=== PATIENT | female | born 1955 | race Caucasian/White ===

== ENCOUNTER 2022-02-25 15:22 | Emergency (ER) | payer MEDICARE, OTHER, SELFPAY ==
[2022-02-25 15:27] VITALS: BP 116/64; PULSE 73; RESP 18; TEMP 36.6; O2SAT 99
--- NOTE | 2022-02-25 16:41 | ED.GENADULT ---
HPI - General Adult General Chief complaint: Seizure Stated complaint: Seizure this morning Time Seen by Provider: 02/25/22 15:35 History of Present Illness HPI narrative: This 66-year-old female comes in because of a decreased level of consciousness event that occurred an hour so prior to arrival. Her daughter was present with her and wonders if she might have had a seizure. The patient reports that she was not feeling right and checked her blood glucose which was over 400. She had some difficulty dialing in her insulin dose but did give herself 10 units at that time. Within 5-10 minutes after this she began to be shaky and had brief loss of consciousness. The shaky tremors lasted for 5-10 seconds and the patient recovered from this within about 5 minutes. There is no report of any postictal symptoms. She does not have any history of seizures. She does take long-acting insulin in the evening and then short-acting 3 times a day. She states that she did have a little bit to eat and drink today but it was less than normal. Related Data Home Medications Medication Instructions Recorded Confirmed amlodipine 10 mg tablet 10 mg PO QDAY 01/24/22 02/25/22 carvedilol 6.25 mg tablet 6.25 mg PO 01/24/22 01/24/22 flash glucose scanning reader 01/24/22 01/24/22 (FreeStyle Mainor 14 Day Post) furosemide 40 mg tablet 40 mg PO 01/24/22 01/24/22 insulin aspart U-100 100 unit/mL subcut 01/24/22 01/24/22 (3 mL) subcutaneous pen (Novolog FlexPen U-100 Insulin aspart) lisinopril 20 mg tablet 20 mg PO QDAY 01/24/22 02/25/22 metformin 1,000 mg tablet 1,000 mg PO QDAY 01/24/22 02/25/22 pantoprazole 40 mg tablet,delayed tab PO 01/24/22 01/24/22 release warfarin 2 mg tablet 2 mg PO 01/24/22 01/24/22 insulin glargine 100 unit/mL (3 unit subcut .Bedtime 01/29/22 01/29/22 mL) subcutaneous pen aspirin 81 mg tablet,delayed 81 mg PO DAILY 02/25/22 02/25/22 release (Adult Aspirin Regimen) atorvastatin 40 mg tablet 40 mg PO DAILY 02/25/22 02/25/22 Allergies Allergy/AdvReac Type Severity Reaction Status Date / Time enoxaparin [From Lovenox] Allergy Diarrhea Verified 01/29/22 15:42 vitamin K2 Allergy Anaphylaxis Verified 01/29/22 15:42 Review of Systems Status of ROS: Reports: 10 or more systems reviewed and unremarkable except as noted in History and below Narrative: Constitutional: No fevers, no weight gain or loss. Eyes: No discharge. No vision changes. HENT: No congestion, no sore throat, no ear pain. Cardiovascular: No chest pain, no palpitations. Respiratory: No shortness of breath, no wheezes, no cough. Gastrointestinal: No abdominal pain, no vomiting, no diarrhea. Genitourinary: No dysuria, no hematuria. Musculoskeletal: Normal range of motion. Skin: No rashes, no pruritis. Neurological: Episode of shakiness and brief unresponsiveness as described above. Endo/Heme/Allergies: No bruising or bleeding. No polydipsia. Pysch: no suicidality, no anxiety, no insomnia. All other systems reviewed and are negative. [facility] Medical History (Updated 02/25/22 @ 17:51 by Lucian Cornejo MD) Acute kidney injury Anticoagulated with warfarin Cellulitis of right lower extremity Congestive heart failure Diabetes Enteritis due to Clostridium difficile History of Clostridioides difficile infection Multiple subsegmental pulmonary emboli without acute cor pulmonale Pleural effusion on left Surgical History H/O splenectomy History of appendectomy History of open heart surgery (05/17/21) History of pancreatectomy History of partial colectomy History of partial gastrectomy Social History Smoking Status: Former smoker How often do you have a drink containing alcohol: never AUDIT-C Alcohol total score: 0 Non-prescribed substance use: denies use Exam Narrative: Exam Narrative: Constitutional: Well-developed, well-nourished, no acute distress. HEENT: Normocephalic, atraumatic. Neck: Normal range of motion. Nontender. Supple. Heart: Regular. No murmurs. Normal rate. Intact distal pulses. Lungs: Clear to auscultation. No chest discomfort. No wheezes, rhonchi, or rales. Abdomen: Normal bowel sounds. Nontender. No rebound tenderness. Genitalia: Deferred. Back: No midline tenderness. Normal range of motion. Extremities: Normal range of motion. No injury. Skin: Intact. No rash. Warm. No erythema or pallor. Neurologic: No altered sensation. No weakness. Alert and oriented. Psychiatric: No suicidality. No anxiety or depression. No insomnia. Nursing notes and vitals signs are reviewed. Const: Vital Signs, click to edit/add: Vital Signs - 24 hr 02/25/22 15:27 Temperature 97.9 F Pulse Rate [Pulse Oximeter] 73 Respiratory Rate 18 Blood Pressure [Le ft Upper Arm] 116/64 Pulse Oximetry 99 Oxygen Delivery Me thod Room Air Course Vital Signs Vital signs: Initial Vital Signs Temperature 97.9 F 02/25/22 15:27 Temperature Source Temporal Artery Scan 02/25/22 15:27 Pulse Rate 73 02/25/22 15:27 Respiratory Rate 18 02/25/22 15:27 Blood Pressure 116/64 02/25/22 15:27 Blood Pressure Mean 81 02/25/22 15:27 Blood Pressure Position Supine 02/25/22 15:27 Pulse Oximetry 99 02/25/22 15:27 Oxygen Delivery Method 02/25/22 15:27 Vital Signs Temperature 97.9 F 02/25/22 15:27 Pulse Rate 73 02/25/22 15:27 Respiratory Rate 18 02/25/22 15:27 Blood Pressure 116/64 02/25/22 15:27 Pulse Oximetry 99 02/25/22 15:27 Oxygen Delivery Method 02/25/22 15:27 Temperature 97.9 F 02/25/22 15:27 Pulse Rate 73 02/25/22 15:27 Respiratory Rate 18 02/25/22 15:27 Blood Pressure 116/64 02/25/22 15:27 Pulse Oximetry 99 02/25/22 15:27 Oxygen Delivery Method 02/25/22 15:27 Medical Decision Making MDM Narrative Medical decision making narrative: This 66 year old female had a brief episode of decreased level of consciousness. She is not showing signs or symptoms that are suspicious for seizure and has never had a seizure in past. She did take her insulin fiber 10 minutes before this happened. Her glucometer reading was showing a glucose over 400. Glucometer reading here return to 240 and lab results showed glucose of 261. Her story and symptoms are yet most suspicious for a hypoglycemic event. She is okay to return home. I did give instructions regarding this kind of thing and advised her to follow-up with her primary physician. She states that she did have less to eat today and added a couple units of insulin to her dosing at the time because of the glucose reading. Lab Data Labs: Lab Results 02/25/22 02/25/22 02/25/22 Range/Units 16:35 16:50 16:50 WBC 11.77 H (4.50-11.00) K/uL RBC 4.20 (4.00-5.20) m/uL Hgb 10.9 L (12.0-16.0) gm/dL Hct 34.9 (33.0-51.0) % MCV 83 (80-100) fL MCH 26 (26-34) pg MCHC 31 L (32-36) gm/dL RDW Coeff of Aditi 16.5 H (11.5-15.5) % Plt Count 318 (140-440) K/uL Neut % (Auto) 77.4 H (42.0-72.0) % Lymph % (Auto) 11.7 L (20-44) % [place] % (Auto) 7.5 (0.0-11.0) % Eos % (Auto) 2.7 (0.0-7.0) % Baso % (Auto) 0.4 (0.0-3.0) % Neut # (Auto) 9.10 H (1.7-7.0) K/uL Lymph # (Auto) 1.40 (0.90-2.90) K/uL [place] # (Auto) 0.90 (0.00-0.90) K/UL Eos # (Auto) 0.30 (0.00-0.50) K/uL Baso # (Auto) 0.00 (0.00-0.30) K/uL Sodium 134 L (135-149) mmol/L Potassium 4.7 (3.6-5.1) mmol/L Chloride 99 (96-114) mmol/L Carbon Dioxide 28 (20-32) mmol/L BUN 24 (7-30) mg/dL Creatinine 0.8 (0.5-1.5) mg/dL Estimated Creat Clear 50.47 Estimated GFR 82 ml/min Glucose 261 H (60-115) mg/dL Calcium 9.6 (8.4-10.6) mg/dL POC Troponin I 0.02 (0.01-0.04) ng/ml ECG Data Attestation: I personally reviewed and interpreted this ECG as follows: Interpretation: Normal sinus rhythm. Rate is 68 beats per minute. There are no ST or T-wave abnormalities. Right bundle branch block. Discharge Plan Discharge Clinical Impression: Hypoglycemic episode in patient with diabetes mellitus Patient Disposition: Home, Self-Care Condition: Improved Additional Instructions: Continue current plans. Take food or drink if symptoms are recurrent. Follow-up with primary physician to review medications. Return if worsening. Prescriptions: No Action insulin aspart U-100 [Novolog FlexPen U-100 Insulin] 100 unit/mL (3 mL) insulin pen subcut pantoprazole 40 mg tablet,delayed release (DR/EC) PO carvedilol 6.25 mg tablet 6.25 mg PO warfarin 2 mg tablet 2 mg PO lisinopril 20 mg tablet 20 mg PO QDAY metformin 1,000 mg tablet 1,000 mg PO QDAY (DME) FreeStyle Mainor 14 Day Post Misc See Rx Instructions .ROUTE Rx Instructions: As directed amlodipine 10 mg tablet 10 mg PO QDAY furosemide 40 mg tablet 40 mg PO insulin glargine 100 unit/mL (3 mL) insulin pen subcut .Bedtime aspirin [Adult Aspirin Regimen] 81 mg tablet,delayed release (DR/EC) 81 mg PO DAILY atorvastatin 40 mg tablet 40 mg PO DAILY Follow Up/Referrals: Hilda Cheema MD [Primary Care Provider] - Stand Alone Forms: [employer] Info Instructions
[2022-02-25 16:54] LABS: Troponin, Point-of-Care* 0.02 ng/ml (0.01-0.04)
[2022-02-25 17:01] LABS: Basophils Percent Auto 0.4 % (0.0-3.0); Eosinophils Percent Auto 2.7 % (0.0-7.0); Hematocrit 34.9 % (33.0-51.0); Hemoglobin* 10.9 gm/dL (12.0-16.0); Immature Granulocytes Pct Auto 0.3 %; Lymphocytes Percent Auto 11.7 % (20-44); Mean Corpuscular HGB Conc 31 gm/dL (32-36); Mean Corpuscular Hemoglobin 26 pg (26-34); Mean Corpuscular Volume 83 fL (80-100); Monocytes Percent Auto 7.5 % (0.0-11.0); Neutrophils Percent Auto 77.4 % (42.0-72.0); Platelet Count* 318 K/uL (140-440); RDW Coefficient of Variation % 16.5 % (11.5-15.5); White Blood Count* 11.77 K/uL (4.50-11.00)
[2022-02-25 17:05] LABS: Slide Review Reflex No
[2022-02-25 17:18] LABS: Chloride* 99 mmol/L (96-114); Potassium* 4.7 mmol/L (3.6-5.1); Sodium* 134 mmol/L (135-149)
[2022-02-25 17:21] LABS: Blood Urea Nitrogen* 24 mg/dL (7-30); Carbon Dioxide* 28 mmol/L (20-32); Creatinine* 0.8 mg/dL (0.5-1.5); Est. Creatinine Clearance* 50.47; Estimated Glomerular Filt Rate 82 ml/min; Glucose* 261 mg/dL (60-115)
[2022-02-25 17:22] LABS: Calcium* 9.6 mg/dL (8.4-10.6)
== END 2022-02-25 17:59 | disposition home or self-care (01) ==
PROVIDERS: Emergency Provider Emergency Medicine Emergency Medical Services; PCP Family Medicine
DX: E11.649 Type 2 diabetes mellitus with hypoglycemia without coma (principal)
CPT/HCPCS: 36415; 80048; 84484; 85025; 93005; 99284

== ENCOUNTER 2022-06-13 22:15 | Outpatient (CLI) | payer MEDICARE, OTHER, SELFPAY | END 2022-06-13 22:16 | disposition home or self-care (01) | LOC: AMB 06-17 10:22 | PROVIDERS: PCP Family Medicine; Visit Provider Emergency Medicine Emergency Medical Services | DX: R53.1 Weakness (principal) | CPT/HCPCS: A0998 ==

== ENCOUNTER 2022-06-17 09:13 | Observation (INO) | payer MEDICARE, OTHER, SELFPAY ==
[2022-06-17] VITALS (7 sets, daily range): BP systolic 125–187; BP diastolic 59–81; PULSE 70–81; RESP 16–18; TEMP 36.6–36.9; O2SAT 94–98; BMI 33.3; BMI 34.3
--- NOTE | 2022-06-17 10:35 | CRLHL7_ITS ---
For Patients: As a result of the Century Cures Act, medical imaging exams and procedure reports are released immediately into your electronic medical record. You may view this report before your referring provider. If you have questions, please contact your health care provider. Indication: Left foot injury Technique: A total of three views of the left foot were acquired. Comparison: None Findings: Bones: Decreased bone mineral density. No definite acute fracture, dislocation or destructive process. Joint spaces: Osteoarthritis primarily of the 1st MTP Soft tissues: No gas within soft tissues. No radiopaque foreign body. Dense atherosclerotic vascular calcifications Impression: No acute posttraumatic finding Dictated by Sadi Kendall MD @ 06/17/2022 11:54:14 AM (Electronically Signed)
--- NOTE | 2022-06-17 10:35 | CRLHL7_ITS ---
For Patients: As a result of the Century Cures Act, medical imaging exams and procedure reports are released immediately into your electronic medical record. You may view this report before your referring provider. If you have questions, please contact your health care provider. Indication: Injury Technique: A total of two views of the right knee were acquired. Comparison: None Findings: Bones: Bone mineral density is decreased. Alignment is normal. There is no directly visible fracture appearance Joint spaces: Moderate-sized joint effusion. Significant osteoarthritis especially medially Soft tissues: Soft tissue swelling. Atherosclerotic vascular calcifications. Impression: Moderate-sized joint effusion. Significant osteoarthritis. No directly visible fracture Dictated by Sadi Kendall MD @ 06/17/2022 11:51:55 AM (Electronically Signed)
--- NOTE | 2022-06-17 12:49 | PC.NURSE ---
Patient attempted to ambulate with a hard sole shoe to affected foot. Patient reports pain less with shoe on, but is unsteady with ambulation. Was only able to ambulate 3 small steps before feeling like she was going to fall. Daughter is concerned for patient safety at home. Dr. Louise notified.
--- NOTE | 2022-06-17 13:56 | PC.NURSE ---
No IV per Block for admission
[2022-06-17 14:13] LABS: SARS PCR* Negative SARS-CoV-2 (Negative)
[2022-06-17 14:35] LABS: Chloride* 100 mmol/L (96-114)
[2022-06-17 14:36] LABS: INR 1.15 (0.91-1.10); Potassium* 4.2 mmol/L (3.6-5.1); Prothrombin Time 15.4 Seconds; Sodium* 135 mmol/L (135-149)
[2022-06-17 14:38] LABS: Creatinine* 0.8 mg/dL (0.5-1.5); Estimated Glomerular Filt Rate 81 ml/min
[2022-06-17 14:39] LABS: Blood Urea Nitrogen* 19 mg/dL (7-30); Carbon Dioxide* 30 mmol/L (20-32); Glucose* 240 mg/dL (60-115)
[2022-06-17] MEDS: ACETAMINOPHEN 500 MG TABLET 1000 MG PO (14:44)
[2022-06-17 15:36] LABS: Hematocrit 31.6 % (33.0-51.0); Hemoglobin* 9.5 gm/dL (12.0-16.0); Lymphocytes Percent Auto 11.4 % (20-44); Mean Corpuscular HGB Conc 30 gm/dL (32-36); Mean Corpuscular Hemoglobin 26 pg (26-34); Mean Corpuscular Volume 87 fL (80-100); Neutrophils Percent Auto 78.3 % (42.0-72.0); Platelet Count* 352 K/uL (140-440); RDW Coefficient of Variation % 18.8 % (11.5-15.5); Red Blood Count 3.64 m/uL (4.00-5.20)
[2022-06-17 15:37] LABS: Basophils Percent Auto 0.4 % (0.0-3.0); Eosinophils Percent Auto 2.6 % (0.0-7.0); Immature Granulocytes Pct Auto 1.1 %; Monocytes Percent Auto 6.2 % (0.0-11.0)
[2022-06-17 15:47] LABS: Slide Review Reflex No
--- NOTE | 2022-06-17 15:48 | ED.GENADULT ---
HPI - General Adult General Date Seen: 06/17/22 Chief complaint: Extremity Pain/Injury, Lower Stated complaint: Foot pain Time Seen by Provider: 06/17/22 10:28 Source: patient and family Mode of arrival: ambulatory Limitations: no limitations History of Present Illness HPI narrative: Patient is a 67-year-old woman here with her daughter for evaluation of her left foot. A few days ago she fell, landing on her right knee. She sustained bruising to her right knee and has had pain ever since although she has not been seen for the knee. She says today she was standing up off the toilet and she just felt like her knee was giving way. She lowered herself to the ground but in the process injured her left foot. She complains of pain over the top of her foot and says she has not been able to put weight on it. Her daughter feels like at baseline she has been having difficulty managing at home. Related Data Home Medications Medication Instructions Recorded Confirmed amlodipine 10 mg tablet 5 mg PO QDAY 01/24/22 06/17/22 carvedilol 6.25 mg tablet 6.25 mg PO BID 01/24/22 06/17/22 furosemide 40 mg tablet 40 mg PO DAILY 01/24/22 06/17/22 insulin aspart U-100 100 unit/mL 8 unit subcut TIDWM 01/24/22 06/17/22 (3 mL) subcutaneous pen (Novolog FlexPen U-100 Insulin aspart) lisinopril 20 mg tablet 20 mg PO QDAY 01/24/22 06/17/22 metformin 1,000 mg tablet 1,000 mg PO BIDWM 01/24/22 06/17/22 pantoprazole 40 mg tablet,delayed 40 mg PO DAILY 01/24/22 06/17/22 release warfarin 2 mg tablet 4 - 6 mg PO QPM 01/24/22 06/17/22 insulin glargine 100 unit/mL (3 20 unit subcut HS 01/29/22 06/17/22 mL) subcutaneous pen aspirin 81 mg tablet,delayed 81 mg PO DAILY 02/25/22 06/17/22 release (Adult Aspirin Regimen) atorvastatin 40 mg tablet 40 mg PO DAILY 02/25/22 06/17/22 acetaminophen 500 mg tablet 500 mg PO Q6H PRN 06/17/22 06/17/22 cholecalciferol (vitamin D3) 25 25 mcg PO DAILY 06/17/22 06/17/22 mcg (1,000 unit) capsule coenzyme Q10 100 mg capsule 100 mg PO DAILY 06/17/22 06/17/22 fluoxetine 10 mg capsule 10 mg PO HS 06/17/22 06/17/22 nystatin 100,000 unit/gram topical 1 applic topical BID PRN 06/17/22 06/17/22 cream sennosides 8.6 mg-docusate sodium 2 tab-cap PO BID PRN 06/17/22 06/17/22 50 mg tablet Allergies Allergy/AdvReac Type Severity Reaction Status Date / Time enoxaparin [From Lovenox] Allergy Diarrhea Verified 01/29/22 15:42 vitamin K2 Allergy Anaphylaxis Verified 01/29/22 15:42 Review of Systems Status of ROS: Reports: 10 or more systems reviewed and unremarkable except as noted in History and below [facility] Medical History Acute kidney injury ?N17.9 - Acute kidney failure, unspecified (ICD-10) Anticoagulated with warfarin ?Z79.01 - intermediate manager (current) use of anticoagulants (ICD-10) Cellulitis of right lower extremity ?L03.115 - Cellulitis of right lower limb (ICD-10) Congestive heart failure ?I50.9 - Heart failure, unspecified (ICD-10) Diabetes ?E11.9 - Type 2 diabetes mellitus without complications (ICD-10) Enteritis due to Clostridium difficile ?A04.72 - Enterocolitis due to Clostridium difficile, not specified as recurrent (ICD-10) History of Clostridioides difficile infection ?Z86.19 - Personal history of other infectious and parasitic diseases (ICD-10) Multiple subsegmental pulmonary emboli without acute cor pulmonale ?I26.94 - Multiple subsegmental pulmonary emboli without acute cor pulmonale (ICD-10) Pleural effusion on left ?J90 - Pleural effusion, not elsewhere classified (ICD-10) Surgical History H/O splenectomy ?Z90.81 - Acquired absence of spleen (ICD-10) History of appendectomy ?Z90.49 - Acquired absence of other specified parts of digestive tract (ICD-10) History of open heart surgery (05/17/21) ?Z98.890 - Other specified postprocedural states (ICD-10) 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) History of partial colectomy ?Z90.49 - Acquired absence of other specified parts of digestive tract (ICD-10) History of partial gastrectomy ?Z90.3 - Acquired absence of stomach [part of] (ICD-10) Social History Smoking Status: Former smoker How often do you have a drink containing alcohol: never AUDIT-C Alcohol total score: 0 Non-prescribed substance use: denies use service: No Exam Narrative: Exam Narrative: Vital signs reviewed In general, an alert, nontoxic woman. She is overweight. Breathing easily. Extremities: Examination of the right knee shows of effusion although it does not look like a hemarthrosis. She does have some bruising over the anterior lower knee. Has full range of motion, this does not seem to cause her pain. On the left, the foot is mildly swollen over the dorsal proximal foot, and she has tenderness in this area. She does not have any tenderness on the plantar aspect of the foot. There is no bruising or deformity. Ankle is nontender. Skin: Warm and dry. Well perfused. Neurologic: She is alert, conversant, moves all extremities, speech is fluid. Affect: Normal. Const: Vital Signs, click to edit/add: Vital Signs - 24 hr 06/17/22 09:16 06/17/22 09:46 Temperature 97.8 F Pulse Rate [Pulse Oximeter] 78 70 Respiratory Rate 18 Blood Pressure [Ri ght Upper Arm] 187/81 H 148/59 H Pulse Oximetry 98 Oxygen Delivery Me thod Room Air Course Vital Signs Vital signs: Initial Vital Signs Temperature 97.8 F 06/17/22 09:16 Temperature Source Temporal Artery Scan 06/17/22 09:16 Pulse Rate 78 06/17/22 09:16 Pulse Rhythm Regular 06/17/22 09:16 Respiratory Rate 18 06/17/22 09:16 Blood Pressure 187/81 H 06/17/22 09:16 Blood Pressure Mean 116 H 06/17/22 09:16 Blood Pressure Position Supine 06/17/22 09:16 Pulse Oximetry 98 06/17/22 09:16 Oxygen Delivery Method Room Air 06/17/22 09:16 Vital Signs Temperature 97.8 F 06/17/22 09:16 Pulse Rate 78 06/17/22 09:16 Respiratory Rate 18 06/17/22 09:16 Blood Pressure 187/81 H 06/17/22 09:16 Pulse Oximetry 98 06/17/22 09:16 Oxygen Delivery Method Room Air 06/17/22 09:16 Temperature 97.8 F 06/17/22 09:16 Pulse Rate 70 06/17/22 09:46 Respiratory Rate 18 06/17/22 09:16 Blood Pressure 148/59 H 06/17/22 09:46 Pulse Oximetry 98 06/17/22 09:16 Oxygen Delivery Method Room Air 06/17/22 09:16 Medical Decision Making MDM Narrative Medical decision making narrative: She had x-rays of the left foot and the right knee. I reviewed these both and did not see any evidence of bony abnormality such as fracture or dislocation. Final radiology reads for both were negative for bony abnormalities. She did have an effusion seen in the right knee. I put her in a flat sole shoe on the left and we tried having her get up to see if having that stabilized a little bit would help her, but she just is not able to walk. She and her daughter both agree that she is not going to be able to manage at home right now, and while she is not enthusiastic, she does agree with the plan for short-term fci placement. We have discussed that she will likely not be able to choose specifically which fci she goes to, that we will be limited by where there is bed availability. Her blood sugar was elevated while she was here and I did let her use her own insulin sliding scale to manage that initially. Routine labs showed a white blood cell count of 12.5, hemoglobin of 9.5, it was 11.9 in February of this year. She is on Coumadin secondary to history of PE. She does not note any bleeding complaints. Her INR subtherapeutic at 1.15. Blood sugar was improved to 240 on her metabolic panel which was otherwise unremarkable. COVID was negative. Lab Data Labs: Lab Results 06/17/22 06/17/22 Range/Units 13:30 14:12 WBC 12.50 H (4.50-11.00) K/uL RBC 3.64 L (4.00-5.20) m/uL Hgb 9.5 L (12.0-16.0) gm/dL Hct 31.6 L (33.0-51.0) % MCV 87 (80-100) fL MCH 26 (26-34) pg MCHC 30 L (32-36) gm/dL RDW Coeff of Aditi 18.8 H (11.5-15.5) % Plt Count 352 (140-440) K/uL Neut % (Auto) 78.3 H (42.0-72.0) % Lymph % (Auto) 11.4 L (20-44) % [place] % (Auto) 6.2 (0.0-11.0) % Eos % (Auto) 2.6 (0.0-7.0) % Baso % (Auto) 0.4 (0.0-3.0) % Neut # (Auto) 9.80 H (1.7-7.0) K/uL Lymph # (Auto) 1.40 (0.90-2.90) K/uL [place] # (Auto) 0.80 (0.00-0.90) K/UL Eos # (Auto) 0.30 (0.00-0.50) K/uL Baso # (Auto) 0.10 (0.00-0.30) K/uL INR 1.15 H (0.91-1.10) Sodium 135 (135-149) mmol/L Potassium 4.2 (3.6-5.1) mmol/L Chloride 100 (96-114) mmol/L Carbon Dioxide 30 (20-32) mmol/L BUN 19 (7-30) mg/dL Creatinine 0.8 (0.5-1.5) mg/dL Estimated Creat Clear 49.80 Estimated GFR 81 ml/min Glucose 240 H (60-115) mg/dL Calcium 9.0 (8.4-10.6) mg/dL SARS-CoV-2 (PCR) Negative SARS-CoV-2 (Negative) Discharge Plan Discharge Clinical Impression: Frailty, Injury of knee, right, Sprain of foot, left Patient Disposition: Admitted As Inpatient Condition: Stable
[2022-06-17] MEDS: WARFARIN 3 MG TABLET 6 MG PO (18:43)
[2022-06-17] MEDS: METFORMIN 1,000 MG TABLET 1000 MG PO (18:43)
--- NOTE | 2022-06-17 19:22 | P.IMHP_ITS ---
Hospitalist- H&P: HPI History of Present Illness Date Seen: 06/17/22 Chief complaint: Foot pain Narrative: Nava Borrego is a 67 year old female with multiple medical problems who presents with a left foot injury that occurred today and acute injury of her right knee 10 days ago. Now unable to walk. Patient reports that she fell and bruised her right knee. She has chronic right knee pain and has been contemplating right total knee arthroplasty for a long time. Due to other serious health problems over the past year this is been put off. About 10 days ago she fell on her right knee causing bruising and increased pain. Today she was getting up off the toilet when her right knee began to hurt in give way and she eased herself to the ground and in the process injuring her left foot over the dorsum of the midfoot. She lives at home with her daughter and her . The daughter works during the day but is otherwise the primary person to manage medical problems and medications. Review of Systems Narrative: Per patient and daughter there has not been any acute medical problems recently. Chest the injuries to her right knee and left foot. She has not been ill with cold, cough, fever, shortness of breath, chest pain, syncope, nausea, vomiting, abdominal pain, diarrhea, constipation, urinary problems, edema. 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 (ICD-10) Cellulitis of right lower extremity ?L03.115 - Cellulitis of right lower limb (ICD-10) Cognitive impairment ?R41.89 - Other symptoms and signs involving cognitive functions and awareness (ICD-10) Congestive heart failure ?I50.9 - Heart failure, unspecified (ICD-10) Diabetes ?E11.9 - Type 2 diabetes mellitus without complications (ICD-10) Diabetic polyneuropathy ?E11.42 - Type 2 diabetes mellitus with diabetic polyneuropathy (ICD-10) Endocarditis ?I38 - Endocarditis, valve unspecified (ICD-10) Enteritis due to Clostridium difficile ?A04.72 - Enterocolitis due to Clostridium difficile, not specified as recurrent (ICD-10) Heart failure ?I50.9 - Heart failure, unspecified (ICD-10) History of Clostridioides difficile infection ?Z86.19 - Personal history of other infectious and parasitic diseases (ICD- 10) History of DVT (deep vein thrombosis) ?Z86.718 - Personal history of other venous thrombosis and embolism (ICD-10) Hyperlipidemia ?E78.5 - Hyperlipidemia, unspecified (ICD-10) Hypertension ?I10 - Essential (primary) hypertension (ICD-10) Medication noncompliance due to cognitive impairment ?R41.9 - Unspecified symptoms and signs involving cognitive functions and awareness (ICD-10) ?Z91.148 - Patient's other noncompliance with medication regimen for other reason (ICD-10) Multiple subsegmental pulmonary emboli without acute cor pulmonale ?I26.94 - Multiple subsegmental pulmonary emboli without acute cor pulmonale (ICD-10) Pleural effusion on left ?J90 - Pleural effusion, not elsewhere classified (ICD-10) Surgical History (Updated 06/17/22 @ 19:22 by Julio White MD) H/O splenectomy ?Z90.81 - Acquired absence of spleen (ICD-10) History of appendectomy ?Z90.49 - Acquired absence of other specified parts of digestive tract (ICD- 10) History of open heart surgery (05/17/21) ?Z98.890 - Other specified postprocedural states (ICD-10) 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 She reports they live in a small home. She primarily walks around the house holding onto furniture. She has a cane that she occasionally uses, especially when she goes out. She lives on [address]. Her daughter sets up her medications but notes that she does not know if her mom is reliably taking her medications. Daughter specifically notes that her mom has probably been forgetting her insulin at times and her warfarin has been missed at least a couple times in the past week or so. Highest level of school completed/degree received: Associate degree: occupational, technical, vocational program Smoking Status: Former smoker Do you use any of these nicotine containing products: None How often do you have a drink containing alcohol: never AUDIT-C Alcohol total score: 0 Non-prescribed substance use: denies use Caffeine: No (Quit in April 2021) Gender Identity: female service: No Meds Home Medications and Allergies Home Medications Medication Instructions Recorded Confirmed Type amlodipine 10 mg tablet 5 mg PO QDAY 01/24/22 06/17/22 History carvedilol 6.25 mg tablet 6.25 mg PO BID 01/24/22 06/17/22 History furosemide 40 mg tablet 40 mg PO DAILY 01/24/22 06/17/22 History insulin aspart U-100 100 unit/mL 8 unit subcut TIDWM 01/24/22 06/17/22 History (3 mL) subcutaneous pen (Novolog FlexPen U-100 Insulin aspart) lisinopril 20 mg tablet 20 mg PO QDAY 01/24/22 06/17/22 History metformin 1,000 mg tablet 1,000 mg PO BIDWM 01/24/22 06/17/22 History pantoprazole 40 mg tablet,delayed 40 mg PO DAILY 01/24/22 06/17/22 History release warfarin 2 mg tablet 4 - 6 mg PO QPM 01/24/22 06/17/22 History insulin glargine 100 unit/mL (3 20 unit subcut HS 01/29/22 06/17/22 History mL) subcutaneous pen aspirin 81 mg tablet,delayed 81 mg PO DAILY 02/25/22 06/17/22 History release (Adult Aspirin Regimen) atorvastatin 40 mg tablet 40 mg PO DAILY 02/25/22 06/17/22 History acetaminophen 500 mg tablet 500 mg PO Q6H PRN 06/17/22 06/17/22 History cholecalciferol (vitamin D3) 25 25 mcg PO DAILY 06/17/22 06/17/22 History mcg (1,000 unit) capsule coenzyme Q10 100 mg capsule 100 mg PO DAILY 06/17/22 06/17/22 History fluoxetine 10 mg capsule 10 mg PO HS 06/17/22 06/17/22 History nystatin 100,000 unit/gram topical 1 applic topical BID PRN 06/17/22 06/17/22 History cream sennosides 8.6 mg-docusate sodium 2 tab-cap PO BID PRN 06/17/22 06/17/22 History 50 mg tablet Allergies Allergy/AdvReac Type Severity Reaction Status Date / Time enoxaparin [From Lovenox] Allergy Diarrhea Verified 01/29/22 15:42 vitamin K2 Allergy Anaphylaxis Verified 01/29/22 15:42 Exam Narrative: Exam Narrative: She is alert and appears in no distress. She gives her own history which is corroborated by her daughter. Head is without trauma. Eyes normal. Oropharynx is normal. Neck is supple without mass or adenopathy. She has no facial asymmetry. Extraocular movements are full. Respirations are clear to auscultation. Cardiovascular: S1, S2, 2/6 systolic ejection murmur. No gallop or rub. Abdomen: Bowel sounds active. Abdomen is soft without tenderness or mass. External genitalia normal. Upper extremities are normal. She moves both upper extremities well. Lower extremities notable for some joint effusion around the right knee with moderate bruising over the anterior knee. No break in the skin. No marked warmth or erythema. She has chronic venous stasis skin changes over her right calf. Right foot appears normal. She has diminished sensation. Intact right pedal pulse. Left lower extremity notable for chronic venous stasis skin changes. She reports pain over her dorsum of her right midfoot. Palpation there is minimally tender. There is no obvious deformity. She is able to flex and extend her foot and ankle and toes without significant pain. No significant erythema. Const: Vital Signs, click to edit/add: Vital Signs - 24 hr 06/17/22 09:16 06/17/22 09:46 06/17/22 15:41 Temperature 97.8 F 98 F Pulse Rate [Pulse Oximeter] 78 70 72 Respiratory Rate 18 18 Blood Pressure [Le ft Arm] 174/75 H Blood Pressure [Ri ght Upper Arm] 187/81 H 148/59 H Pulse Oximetry 98 95 Oxygen Delivery Me thod Room Air Room Air 06/17/22 15:41 06/17/22 14:45 06/17/22 16:26 Temperature 98 F Pulse Rate [Pulse Oximeter] 72 Respiratory Rate 18 18 18 Blood Pressure [Le ft Arm] 174/75 H Blood Pressure [Ri ght Upper Arm] Pulse Oximetry 95 95 Oxygen Delivery Me thod Room Air Room Air Documenting provider has reviewed patient's vital signs: yes Hospitalist - H&P: Result Labs Labs: Short CBC 06/17/22 Range/Units 14:12 WBC 12.50 H (4.50-11.00) K/uL Hgb 9.5 L (12.0-16.0) gm/dL Hct 31.6 L (33.0-51.0) % Plt Count 352 (140-440) K/uL BMP 06/17/22 14:12 Sodium 135 Potassium 4.2 Chloride 100 Carbon Dioxide 30 BUN 19 Creatinine 0.8 Glucose 240 H Calcium 9.0 Imaging Radiographs of left foot and right ankle: Attestation: I have reviewed the pertinent imaging results. (No obvious bony abnormalities) Assessment and Plan Assessment and plan (1) Sprain of foot, left: Problem comment: Patient can be allowed to bear weight as tolerated. At this time she is unable to walk on her foot secondary to pain. Will treat with Tylenol for pain Status: Acute (2) Injury of knee, right: Problem comment: Acute on chronic knee problems on the right. She has advanced degenerative changes. She may have some hemarthrosis from her fall from 10 days ago. She has been told she is not a good candidate for knee surgery. If not getting better consider repeat injection and/or aspiration of that right knee per Ortho. Status: Acute (3) Osteoarthritis of right knee: Problem comment: severe, primary, longstanding Status: Acute (4) Frailty: Problem comment: By description today patient appears to be frail in addition to her recent injuries. Will do an assessment for functional status. Status: Acute (5) Cognitive impairment: Problem comment: Not previously diagnosed. Daughter notes some progressive forgetfulness and confusion. Medication noncompliance has become a problem. Cognitive assessment is warranted Status: Acute (6) Medication noncompliance due to cognitive impairment: Problem comment: Has been forgetting warfarin and insulin at times. Status: Acute Plan Patient is admitted because of a lack of a safe discharge plan. Will do functional assessment for physical and cognitive deficits. Attempt pain management. Look at options for safe discharge. Total time spent today is 75 minutes, 55 minutes in coordination of care and discussing with patient, daughter and other providers ongoing evaluation management of disabilities.
--- NOTE | 2022-06-17 20:06 | PC.NURSE ---
[id number] Shift Summary? [address]67 Fall- L foot pain? Obs. Pt admitted to floor around 1445. Fell on 06/13 and hurt her R knee. Fell in bathroom this morning and hurt her L foot. X rays to R Knee and L foot done, no breaks found. Has 7/10 pain to Left foot and 4/10 to R knee. Given Tylenol in the ED. Brusing to R knee and swelling (edema vs injury?) to L foot. Oriented x4 but forgetful in conversation. Family reports this is new. Neuropathy to bilat legs up to shins. No nausea or vomiting. Moving with walker (cane at baseline) and AO1. Commode at bedside, no BM this shift. Diabetic diet with SSI, standing units with meals, and long acting at night. Daughter is Caregiver and requests we call with any questions. 6mg of Warfarin given this shift- daughter reports pt is ?forgetful? about taking Coumadin. INR 1.1. Allergy to Vitamin K ?It makes my heart stop?.?
[2022-06-17] MEDS: FLUOXETINE HCL 10 MG CAPSULE PO (20:58)
[2022-06-17] MEDS: ENOXAPARIN 40 MG/0.4 ML INJ SUBCUT (20:58)
[2022-06-17] MEDS: carvediloL 6.25 MG TABLET PO (20:58)
[2022-06-17] MEDS: ACETAMINOPHEN 325 MG TABLET 975 MG PO (21:03)
--- NOTE | 2022-06-17 22:00 | PC.NURSE ---
Pt cooperative during shift ([id number]). Pt up to bathroom with SBA. Pt had pain which Pt stated a 5 in foot and on the tops of toes. See EMAR for intervention. Pt takes medications whole. Pt has blood sugar checks; night time blood glucose 147 no sliding scale needed.
[2022-06-18] VITALS (7 sets, daily range): BP systolic 143–179; BP diastolic 54–80; PULSE 66–75; RESP 16–18; TEMP 36.3–36.6; O2SAT 94–98
[2022-06-18] MEDS: ACETAMINOPHEN 325 MG TABLET 975 MG PO ×4 (04:15→23:34)
[2022-06-18 06:32] LABS: Basophils Absolute Auto 0.05 K/uL (0.00-0.30); Basophils Percent Auto 0.5 % (0.0-3.0); Eosinophils Absolute Auto 0.44 K/uL (0.00-0.50); Eosinophils Percent Auto 4.3 % (0.0-7.0); Hematocrit 29.3 % (33.0-51.0); Immature Granulocytes Abs Auto 0.14 K/uL (0.00-0.30); Immature Granulocytes Pct Auto 1.4 %; Lymphocytes Percent Auto 16.3 % (20-44); Mean Corpuscular HGB Conc 31 gm/dL (32-36); Mean Corpuscular Hemoglobin 27 pg (26-34); Mean Corpuscular Volume 86 fL (80-100); Monocytes Percent Auto 10.4 % (0.0-11.0); Neutrophils Absolute Auto 6.86 K/uL (1.7-7.0); Neutrophils Percent Auto 67.1 % (42.0-72.0); Platelet Count* 343 K/uL (140-440); RDW Coefficient of Variation % 19.3 % (11.5-15.5); White Blood Count* 10.22 K/uL (4.50-11.00)
[2022-06-18] MEDS: OMEPRAZOLE 20 MG CAPSULE DR 40 MG PO (06:37)
[2022-06-18 06:40] LABS: Slide Review Reflex No
--- NOTE | 2022-06-18 06:43 | PC.NURSE ---
Pt alert and oriented x3, Afebrile. Pt reports 5/10 left foot pain with movement and 3/10 when lying still, pain managed with PRN Tylenol. Pt left foot has non-pitting edema, has <3 refill. Pt denies chest pain, SOB, and N/V. Pt is up SBA with walker and gait belt. Pt slept throughout most of night. Pt is tolerating a regular diet. ?
[2022-06-18 06:52] LABS: INR 1.36 (0.91-1.10); Prothrombin Time 17.6 Seconds
[2022-06-18 07:02] LABS: C Reactive Protein* 1.2 mg/dL (0.5-1.0)
[2022-06-18] MEDS: ASPIRIN 81 MG TABLET EC PO (08:36)
[2022-06-18] MEDS: METFORMIN 1,000 MG TABLET 1000 MG PO ×2 (08:36→17:29)
[2022-06-18] MEDS: ATORVASTATIN CALCIUM 40 MG TABLET PO (08:37)
[2022-06-18] MEDS: AMLODIPINE 10 MG TABLET 5 MG PO (08:37)
[2022-06-18] MEDS: FUROSEMIDE 40 MG TABLET PO (08:37)
[2022-06-18] MEDS: carvediloL 6.25 MG TABLET PO ×2 (08:37→20:35)
[2022-06-18] MEDS: COENZYME Q10 100 MG CAPSULE PO (08:37)
[2022-06-18] MEDS: lisinopriL 20 MG TABLET PO (08:37)
--- NOTE | 2022-06-18 09:53 | P.IMPN_ITS ---
Progress Note: A&P Assessment and plan (1) Falls: Problem details: - mechanical vs orthostatic (iatrogenic, anemia) vs cardiogenic/neuro - PT and OT following, will obtain TTE given history of aortic valve replacement, further workup pending results and clinical course Status: Acute (2) Sprain of foot, left: Problem details: - unable to bear weight on admission 06/17, secondary to pain - working with therapies to help determine dispo plan Status: Acute (3) Injury of knee, right: Problem details: - acute on chronic with multiple recent falls - ambulating with therapies, consider repeat injection and/or aspiration of that right knee per Ortho pending clinical course Status: Acute (4) Osteoarthritis of right knee: Problem details: - severe, primary, longstanding Status: Acute (5) Frailty: Problem details: - recent falls, deconditioning Status: Acute (6) Cognitive impairment: Problem details: - patient and daughter both endorse some memory loss recently; OT to perform MOCA today Status: Acute (7) Medication noncompliance due to cognitive impairment: Problem details: - occasionally forgetting to take Warfarin/insulin Status: Acute (8) Anemia: Problem details: - chronic, normocytic, unclear etiology, receiving outpatient iron infusions with PCP - reassuring colonoscopy 01/[address] Ritter Status: Acute Plan - per above - continue home medications, Warfarin for ppx - daughter Oscar updated by phone, questions answered - Oscar notes that family is comfortable with SNF placement if recommended by team Subjective Date Seen: 06/18/22 Interval history: No acute events overnight. Patient's lower extremity pain seems better today. She endorses multiple falls recently, on aware of any alleviating or aggravating factors. She does not believe she has been having palpitations or syncope. Amparo also notes that her memory has been worse recently; MOCA with occupational therapy is today. Exam Narrative: Exam Narrative: GEN: Alert and sitting comfortably in bedside chair HEENT: EOMIs bilaterally, + conjunctival pallor, no scleral icterus CV: RRR, + systolic murmur without radiation R: LCTA bilaterally without concerning wheezing, air movement adequate Ext: Trace edema bilateral lower extremities, abnormal pigmentation of bilateral lower extremities consistent with livedo reticularis vs PVD Skin: No other concerning skin lesions or rashes on exposed skin Neuro: No focal deficits, gait not observed Psych: Appropriate Const: Vital Signs, click to edit/add: Vital Signs - 24 hr 06/17/22 14:45 06/17/22 15:41 06/17/22 15:41 Temperature 98 F 98 F Pulse Rate [Pulse Oximeter] 72 72 Respiratory Rate 18 18 18 Blood Pressure [Le ft Arm] 174/75 H 174/75 H Pulse Oximetry 95 95 95 Oxygen Delivery Me thod Room Air Room Air Room Air 06/17/22 16:26 06/17/22 19:40 06/17/22 19:40 Temperature 98.5 F Pulse Rate [Pulse Oximeter] 72 72 Respiratory Rate 18 18 Blood Pressure [Le ft Arm] 125/66 Pulse Oximetry 94 Oxygen Delivery Me thod Room Air 06/17/22 23:50 06/17/22 23:50 06/18/22 03:40 Temperature 98.5 F 97.6 F Pulse Rate [Pulse Oximeter] 81 81 71 Respiratory Rate 18 16 16 Blood Pressure [Le ft Arm] 144/62 H 143/63 H Pulse Oximetry 96 94 Oxygen Delivery Me thod Room Air Room Air 06/18/22 07:29 Temperature 97.7 F Pulse Rate [Pulse Oximeter] 66 Respiratory Rate 16 Blood Pressure [Le ft Arm] 151/67 H Pulse Oximetry 94 Oxygen Delivery Me thod Room Air Labs Labs: Laboratory Results - last 24 hr 06/17/22 06/17/22 06/18/22 13:30 14:12 06:05 WBC 12.50 H 10.22 RBC 3.64 L 3.40 L Hgb 9.5 L 9.0 L Hct 31.6 L 29.3 L MCV 87 86 MCH 26 27 MCHC 30 L 31 L RDW Coeff of Aditi 18.8 H 19.3 H Plt Count 352 343 Neut % (Auto) 78.3 H 67.1 Lymph % (Auto) 11.4 L 16.3 L Bartholomew % (Auto) 6.2 10.4 Eos % (Auto) 2.6 4.3 Baso % (Auto) 0.4 0.5 Neut # (Auto) 9.80 H 6.86 Lymph # (Auto) 1.40 1.70 Bartholomew # (Auto) 0.80 1.10 H Eos # (Auto) 0.30 0.44 Baso # (Auto) 0.10 0.05 INR 1.15 H 1.36 H Sodium 135 Potassium 4.2 Chloride 100 Carbon Dioxide 30 BUN 19 Creatinine 0.8 Estimated Creat Clear 49.80 Estimated GFR 81 Glucose 240 H Calcium 9.0 C-Reactive Protein 1.2 H TSH 2.190 SARS-CoV-2 (PCR) Negative SARS-CoV-2
--- NOTE | 2022-06-18 13:24 | PC.SOCIAL ---
Met with pt., spouse, and daughter Oscar to discuss discharge plans. Pt. will need a rehab bed at discharge and family prefers the [facility] since Ocsar works there. The [facility] has a bed and can accept pt. tomorrow. Oscar will arrive at 10:30am to transport. Oscar talked about pt. moving to [facility] after her rehab stay due to her needs being too much for the family. Gave Oscar a medical assistance application and explained the MA process.
--- NOTE | 2022-06-18 16:43 | CRLHL7_ITS ---
For Patients: As a result of the Century Cures Act, medical imaging exams and procedure reports are released immediately into your electronic medical record. You may view this report before your referring provider. If you have questions, please contact your health care provider. INDICATION: TECHNIQUE: Ultrasound venous duplex lower extremity bilateral. Compression venous exam was performed using grewal scale, color Doppler, and spectral Doppler imaging. COMPARISON: None. FINDINGS: Sonographic imaging demonstrates the common femoral, deep femoral, superficial femoral, popliteal, posterior tibial and greater saphenous veins to be fully compressible with normal color Doppler blood flow in both lower extremities. IMPRESSION: Normal bilateral lower extremity venous ultrasound, no sign of deep venous thrombosis. Dictated by: García Rawls MD @ 06/18/2022 18:10:17 (Electronically Signed)
[2022-06-18] MEDS: CEFAZOLIN 1 GM inj IVP (17:29)
[2022-06-18] MEDS: WARFARIN 3 MG TABLET 6 MG PO (17:29)
[2022-06-18] MEDS: 0.9 % SODIUM CHLORIDE 250 ml IV (17:29)
--- NOTE | 2022-06-18 19:15 | PM.EN ---
Chart Event Note Date Seen: 06/18/22 Chart Event Note: Patient and daughter concerned about left lower extremity. Patient has increasing pain swelling and redness and warmth in her left lower extremity. I examine it and this is significantly changed from yesterday when I admitted her. She has bilateral chronic venous stasis skin changes. Asymmetric warmth redness and tenderness on the left which is new. Venous ultrasound shows no DVT. Likely cellulitis. Ancef started.
[2022-06-18] MEDS: SODIUM CHLORIDE 0.9 % (FLUSH) 10 ML SYRINGE 5 ML IVF (20:35)
[2022-06-18] MEDS: FLUOXETINE HCL 10 MG CAPSULE PO (20:35)
[2022-06-18] MEDS: ENOXAPARIN 40 MG/0.4 ML INJ SUBCUT (20:35)
--- NOTE | 2022-06-18 22:49 | PC.NURSE ---
End of Shift: Patient pleasant and cooperative. Afebrile. Patient c/o pain in left lower extremity and sensitivity to touch. Edema noted from below the knee through the foot and pink/warm to touch. MD in to see patient. Legs elevated on pillows. PRN Tylenol given x1. Patient up to chair and bathroom with 1 assist, walker and gait belt. Tolerating regular diet with no nausea. BG 71 before dinner, MD updated.
[2022-06-19] MEDS: CEFAZOLIN 1 GM inj IVP ×2 (01:46→08:12)
[2022-06-19 02:00] VITALS: BP 143/63; PULSE 69; RESP 14; TEMP 36.6; O2SAT 93
[2022-06-19] MEDS: ACETAMINOPHEN 325 MG TABLET 975 MG PO (05:28)
--- NOTE | 2022-06-19 06:13 | PC.NURSE ---
Pt alert and oriented x3, Afebrile. Pt reports 5/10 left foot pain with movement and 2/10 when lying still, pain managed with PRN Tylenol. Pt left leg and?foot has + 2 pitting edema, pt refused hospital compression socks but brought socks from home that she prefers.?Pt denies chest pain, SOB, and N/V. Pt is up SBA with walker and gait belt. Pt slept throughout most of night. VSS. Pt is tolerating a regular diet.
[2022-06-19 06:47] LABS: Basophils Absolute Auto 0.04 K/uL (0.00-0.30); Basophils Percent Auto 0.5 % (0.0-3.0); Eosinophils Absolute Auto 0.47 K/uL (0.00-0.50); Eosinophils Percent Auto 5.7 % (0.0-7.0); Hematocrit 30.8 % (33.0-51.0); Hemoglobin* 9.3 gm/dL (12.0-16.0); Immature Granulocytes Abs Auto 0.06 K/uL (0.00-0.30); Immature Granulocytes Pct Auto 0.7 %; Lymphocytes Absolute Auto 1.85 K/uL (0.90-2.90); Lymphocytes Percent Auto 22.3 % (20-44); Mean Corpuscular HGB Conc 30 gm/dL (32-36); Mean Corpuscular Hemoglobin 26 pg (26-34); Mean Corpuscular Volume 88 fL (80-100); Neutrophils Absolute Auto 5.04 K/uL (1.7-7.0); Neutrophils Percent Auto 60.8 % (42.0-72.0); Platelet Count* 335 K/uL (140-440); Red Blood Count 3.52 m/uL (4.00-5.20); White Blood Count* 8.29 K/uL (4.50-11.00)
[2022-06-19 07:00] VITALS: BP 175/65; PULSE 79; RESP 18; TEMP 36.4; O2SAT 96
[2022-06-19 07:00] LABS: Slide Review Reflex No
[2022-06-19 07:19] LABS: Chloride* 105 mmol/L (96-114); Potassium* 3.9 mmol/L (3.6-5.1); Sodium* 139 mmol/L (135-149)
[2022-06-19 07:21] LABS: Creatinine* 0.6 mg/dL (0.5-1.5); Estimated Glomerular Filt Rate 99 ml/min
[2022-06-19 07:22] LABS: Alanine Aminotransferase* 15 U/L (4-35); Alkaline Phosphatase* 90 U/L (40-150); Aspartate Amino Transferase* 19 U/L (12-35); Bilirubin Total* 0.2 mg/dL (0.1-1.5); Blood Urea Nitrogen* 14 mg/dL (7-30); Carbon Dioxide* 29 mmol/L (20-32); Glucose* 99 mg/dL (60-115); Total Protein* 5.7 g/dL (6.0-8.3)
[2022-06-19 07:23] LABS: Calcium* 8.7 mg/dL (8.4-10.6)
[2022-06-19 07:29] LABS: INR 1.76 (0.91-1.10); Prothrombin Time 21.4 Seconds
[2022-06-19] MEDS: METFORMIN 1,000 MG TABLET 1000 MG PO (08:12)
[2022-06-19] MEDS: ASPIRIN 81 MG TABLET EC PO (08:13)
[2022-06-19] MEDS: carvediloL 6.25 MG TABLET PO (08:13)
[2022-06-19] MEDS: lisinopriL 20 MG TABLET PO (08:13)
[2022-06-19] MEDS: ATORVASTATIN CALCIUM 40 MG TABLET PO (08:13)
[2022-06-19] MEDS: FUROSEMIDE 40 MG TABLET PO (08:13)
[2022-06-19] MEDS: AMLODIPINE 10 MG TABLET 5 MG PO (08:14)
[2022-06-19] MEDS: COENZYME Q10 100 MG CAPSULE PO (08:15)
[2022-06-19] MEDS: SODIUM CHLORIDE 0.9 % (FLUSH) 10 ML SYRINGE 5 ML IVF (08:24)
--- NOTE | 2022-06-19 09:27 | P.DS_ITS ---
DS: Providers Provider Date Seen: 06/19/22 Date of admission: 06/17/22 14:40 Primary care physician: Hilda Cheema MD Admitting Clinician: Natalia Quiroz MD Consults: PT, OT, SW Attending Physician on discharge: Dinora Hubbard MD Date of Discharge: 06/19/22 DS: Diagnosis Discharge Diagnosis (1) Falls: Status: Acute Problem details: - mechanical vs orthostatic (iatrogenic, anemia) vs cardiogenic/neuro (2) Left leg cellulitis: Status: Acute Problem details: - noted on 06/18; treated with IV Ancef and will transition to oral Keflex upon d/c (3) Sprain of foot, left: Status: Acute Problem details: - unable to bear weight on admission 06/17, secondary to pain - wore postop shoe with good relief - improved during stay, followed by therapies and SNF stay recommended (4) Injury of knee, right: Status: Acute Problem details: - acute on chronic with multiple recent falls - ambulating with therapies with improvement in symptoms (5) Osteoarthritis of right knee: Status: Acute Problem details: - severe, primary, longstanding (6) Frailty: Status: Acute Problem details: - recent falls, deconditioning (7) Cognitive impairment: Status: Acute Problem details: - patient and daughter both endorse some memory loss recently; MOCA (8) Medication noncompliance due to cognitive impairment: Status: Acute Problem details: - occasionally forgetting to take Warfarin/insulin (9) Anemia: Status: Acute Problem details: - chronic, normocytic, unclear etiology, receiving outpatient iron infusions with PCP - continue oral iron supplementation d/c - reassuring colonoscopy 01/[address] Ritter DS: Summary Hospital Course Hospital Course: Amparo is a pleasant 67-year-old female who was admitted to the hospital after multiple falls at home. She was evaluated by therapies and SNF stay recommended; also found to have cognitive impairment with in MOCA of . While here, she was found to have a left lower extremity cellulitis that was treated with IV Ancef and will be transition to oral Keflex upon discharge. She was noted to have asymptomatic hypoglycemia, insulin dose was decreased upon discharge. Comorbidities as noted otherwise remained stable and she was medically appropriate for discharge to [facility] on 06/19/22 Status at Discharge Overall status at discharge: patient is progressing back to baseline Time Spent with Patient Time attestation: Total time spent providing and/or coordinating discharge services: Time spent: Greater than 30 minutes Exam Narrative: Exam Narrative: GEN: Alert and oriented, sitting comfortably in bedside chair HEENT: EOMIs bilaterally, no scleral icterus CV: RRR, + systolic murmur heard best at left sternal border R: LCTA bilaterally without concerning wheezing, air movement Ext: wwp, no concerning edema Skin: Hyperpigmentation of bilateral lower extremities consistent with PVD; also noted upon discharge is confluent erythema of the left lower extremity up to mid davila, + warm, + ttp Neuro: No focal deficits Psych: Short-term memory impairment is evident Const: Vital Signs, click to edit/add: Vital Signs - 24 hr 06/18/22 11:25 06/18/22 15:00 06/18/22 16:00 Temperature 97.3 F L 97.5 F L Pulse Rate [Pulse Oximeter] 74 72 72 Respiratory Rate 18 18 18 Blood Pressure [Le ft Arm] 151/80 H 179/67 H Pulse Oximetry 96 97 Oxygen Delivery Me thod Room Air Room Air 06/18/22 20:00 06/18/22 23:45 06/18/22 23:45 Temperature 97.8 F 97.7 F Pulse Rate [Pulse Oximeter] 75 71 75 Respiratory Rate 16 16 16 Blood Pressure [Le ft Arm] 148/54 H 165/67 H Pulse Oximetry 98 97 Oxygen Delivery Me thod Room Air Room Air 06/19/22 02:00 Temperature 97.8 F Pulse Rate [Pulse Oximeter] 69 Respiratory Rate 14 Blood Pressure [Le ft Arm] 143/63 H Pulse Oximetry 93 Oxygen Delivery Me thod Room Air DS: Data Data Completed and Pending Labs on day of discharge: Labs from last 24 hours 06/19/22 05:48 WBC 8.29 RBC 3.52 L Hgb 9.3 L Hct 30.8 L MCV 88 MCH 26 MCHC 30 L RDW Coeff of Aditi 20.0 H Plt Count 335 Neut % (Auto) 60.8 Lymph % (Auto) 22.3 [place] % (Auto) 10.0 Eos % (Auto) 5.7 Baso % (Auto) 0.5 Neut # (Auto) 5.04 Lymph # (Auto) 1.85 [place] # (Auto) 0.80 Eos # (Auto) 0.47 Baso # (Auto) 0.04 INR 1.76 H Sodium 139 Potassium 3.9 Chloride 105 Carbon Dioxide 29 BUN 14 Creatinine 0.6 Estimated Creat Clear 49.80 Estimated GFR 99 Glucose 99 Calcium 8.7 Total Bilirubin 0.2 AST 19 ALT 15 Alkaline Phosphatase 90 Total Protein 5.7 L Albumin 3.0 L Discharge Plan Discharge Disposition: [facility] Date of Admission: 06/17/22 14:40 Attending Provider on Discharge: Dinora Hubbard Primary Care Provider: Hilda Cheema Condition: Stable Anticipated Discharge Date/Time: 06/19/22 09:17 Discharge Medications: New insulin aspart U-100 [Novolog FlexPen U-100 Insulin] 100 unit/mL (3 mL) Insulin Pen 6 unit subcut TIDWM Qty: 15 0RF Levemir FlexPen 100 unit/mL (3 mL) Insulin Pen 18 unit subcut HS Qty: 15 0RF cephalexin 500 mg capsule 500 mg PO Q8H 7 Days Qty: 21 0RF Continued pantoprazole 40 mg tablet,delayed release (DR/EC) 40 mg PO DAILY carvedilol 6.25 mg tablet 6.25 mg PO BID warfarin 2 mg tablet 4 - 6 mg PO QPM Rx Instructions: 4 MG ON TUE, FRI AND 6 MG ALL OTHER DAYS lisinopril 20 mg tablet 20 mg PO QDAY metformin 1,000 mg tablet 1,000 mg PO BIDWM amlodipine 10 mg tablet 5 mg PO QDAY furosemide 40 mg tablet 40 mg PO DAILY sennosides-docusate sodium 8.6-50 mg tablet 2 tab-cap PO BID PRN nystatin 100,000 unit/gram cream 1 applic topical BID PRN fluoxetine 10 mg capsule 10 mg PO HS cholecalciferol (vitamin D3) 25 mcg (1,000 unit) capsule 25 mcg PO DAILY coenzyme Q10 100 mg capsule 100 mg PO DAILY acetaminophen 500 mg tablet 500 mg PO Q6H PRN aspirin [Adult Aspirin Regimen] 81 mg tablet,delayed release (DR/EC) 81 mg PO DAILY atorvastatin 40 mg tablet 40 mg PO DAILY Discontinued insulin aspart U-100 [Novolog FlexPen U-100 Insulin] 100 unit/mL (3 mL) insulin pen 8 unit subcut TIDWM insulin glargine 100 unit/mL (3 mL) insulin pen 20 unit subcut HS Discharge Orders: Discharge Order (Routine); Ordered 06/19/22 Ordered By: Dinora Hubbard Activity Level: No strenuous activity Activity Detail: PT/OT - Wear postop shoe with activity Discharge Diet: Diabetic Follow Up Appointments: [facility] [Outside] (Patient discharged to [facility].) Hilda Cheema MD [Primary Care Provider] - Wound Care: n/a - please examine LLE once/day to ensure that cellulitis continues to improve Ostomy Care: n/a Admit to: SNF Discharge Potential: Fair Length of Stay: 30-90 days Can use facility standing orders?: Yes Code Status: Full Code Rehab Potential: Fair Therapy: Physical Therapy and Occupational Therapy Therapy Orders: Evaluate and Treat Oxygen: No Urinary Catheter: No Glucose Checks: BID Next INR: Friday, 06/21 INR Goal: 2-3 Hospice Evaluate and Admit: no Orders are good >30 days: Yes Signature: Dinora Hubbard MD
[2022-06-19 09:31] VITALS: RESP 18; TEMP 36.4
== END 2022-06-19 10:45 ==
LOC: ED 10:51 → MEDSURG 14:40
PROVIDERS: Family Medicine; Admitting Provider Family Medicine; Emergency Provider Emergency Medicine; PCP Family Medicine; Visit Provider Family Medicine
DX: S93.602A Unspecified sprain of left foot, initial encounter (principal); L03.116 Cellulitis of left lower limb; S89.91XA Unspecified injury of right lower leg, initial encounter; E11.65 Type 2 diabetes mellitus with hyperglycemia; G31.84 Mild cognitive impairment of uncertain or unknown etiology; Z91.148 Patient's other noncompliance with medication regimen for other reason; T38.3X6A Underdosing of insulin and oral hypoglycemic [antidiabetic] drugs, initial encounter; T45.516A Underdosing of anticoagulants, initial encounter; D64.9 Anemia, unspecified; R54 Age-related physical debility; M17.11 Unilateral primary osteoarthritis, right knee; W19.XXXA Unspecified fall, initial encounter; S80.01XA Contusion of right knee, initial encounter; M79.672 Pain in left foot; M25.461 Effusion, right knee; M25.561 Pain in right knee; R60.0 Localized edema; G89.29 Other chronic pain; E78.5 Hyperlipidemia, unspecified; I10 Essential (primary) hypertension; I87.8 Other specified disorders of veins; L81.9 Disorder of pigmentation, unspecified; L53.9 Erythematous condition, unspecified; Z79.01 Long term (current) use of anticoagulants; Z79.4 Long term (current) use of insulin; Z79.82 Long term (current) use of aspirin; Z79.84 Long term (current) use of oral hypoglycemic drugs; R29.6 Repeated falls; Z86.19 Personal history of other infectious and parasitic diseases; Z87.891 Personal history of nicotine dependence; Z86.711 Personal history of pulmonary embolism; Z95.4 Presence of other heart-valve replacement; Z90.81 Acquired absence of spleen; Z90.49 Acquired absence of other specified parts of digestive tract; Z90.410 Acquired total absence of pancreas; Z90.3 Acquired absence of stomach [part of]; Z20.822 Contact with and (suspected) exposure to COVID-19; Z98.890 Other specified postprocedural states
CPT/HCPCS: 36415; 73562; 73630; 80048; 80053; 82962; 84443; 85025; 85610; 86140; 87635; 93306; 93970; 96372; 96374; 96376; 97116; 97162; 97165; 97530; 97535; 99284; A9270; G0378; J0690; J1650; J7050

== ENCOUNTER 2023-01-09 02:49 | Outpatient (CLI) | payer MEDICARE, OTHER, SELFPAY | END 2023-01-09 02:50 | disposition home or self-care (01) | LOC: AMB 01-10 00:10 | PROVIDERS: PCP Family Medicine; Visit Provider Family Medicine | DX: R53.1 Weakness (principal) | CPT/HCPCS: A0998 ==

== ENCOUNTER 2023-04-23 16:05 | Outpatient (CLI) | payer OTHER, SELFPAY | END 2023-04-23 16:06 | disposition home or self-care (01) | LOC: AMB 04-29 08:49 | PROVIDERS: PCP Family Medicine; Visit Provider Emergency Medicine Emergency Medical Services | DX: R41.82 Altered mental status, unspecified (principal); E11.649 Type 2 diabetes mellitus with hypoglycemia without coma | CPT/HCPCS: A0425; A0427 ==

== ENCOUNTER 2023-04-23 16:31 | Emergency (ER) | payer OTHER, SELFPAY ==
[2023-04-23 16:33] VITALS: BP 189/71; PULSE 52; RESP 18; TEMP 36; O2SAT 96; BMI 33.3
--- NOTE | 2023-04-23 16:56 | ED_ITS ---
HPI - General Adult General Date Seen: 04/23/23 Chief complaint: Diabetic Related Problem Stated complaint: Diabetic complications Time Seen by Provider: 04/23/23 16:32 Source: patient and EMS Mode of arrival: EMS History of Present Illness HPI narrative: Patient is a 67-year-old female presenting to emergency department for altered mental status after an episode of hypoglycemia. She has a history of coronary artery disease with CABG, hypertension, hyperlipidemia, CHF. Is on warfarin secondary to history of PE. EMS was called by the patient's daughter because when she arrived back to the car the patient was not acting normally. When EMS arrived her blood sugar was 45 and D50 was given. They recheck did and it was 175. The states initially the patient seemed very confused but is not answering questions appropriately. She otherwise had normal vital signs. Patient states her memory everything started to come back to her but she is still does feel completely back to normal is still trying to piece everything together. States she took 3 insulin twice today. States he took it the same as she always does. It is a sliding scale insulin she states she always checks her blood sugar before she gives herself insulin. States her blood sugars usually in the low 200s. She cannot definitively remember few checked her blood sugars today but she thinks she did because again she states she always checks her blood sugar before dosing insulin. Admits that all she ate today prior to the insulin was a small bowl of rice Krispies. Was going to start eating an apple and banana while she was sitting in the car but never got to it. States the last thing she remembers is thinking well with again it due for supper. States she has never had blood sugar this low before. Denies ever having symptoms like this before. Denies any recent head injuries. She is mildly nauseated but has not vomited. Denies chest pain, shortness of breath, lightheadedness, dizziness, abdominal pain, numbness, vision changes. No other concerns noted at this time. Related Data Home Medications Medication Instructions Recorded Confirmed amlodipine 10 mg tablet 5 mg PO QDAY 01/24/22 04/23/23 carvedilol 6.25 mg tablet 6.25 mg PO BID 01/24/22 04/23/23 furosemide 40 mg tablet 40 mg PO DAILY 01/24/22 04/23/23 lisinopril 20 mg tablet 20 mg PO QDAY 01/24/22 04/23/23 warfarin 2 mg tablet 4 - 6 mg PO QPM 01/24/22 04/23/23 aspirin 81 mg tablet,delayed 81 mg PO DAILY 02/25/22 04/23/23 release (Adult Aspirin Regimen) atorvastatin 40 mg tablet 40 mg PO DAILY 02/25/22 04/23/23 cholecalciferol (vitamin D3) 25 25 mcg PO DAILY 06/17/22 04/23/23 mcg (1,000 unit) capsule coenzyme Q10 100 mg capsule 100 mg PO DAILY 06/17/22 04/23/23 fluoxetine 10 mg capsule 10 mg PO HS 06/17/22 04/23/23 insulin glargine 100 unit/mL (3 unit subcut 04/23/23 mL) subcutaneous pen (Lantus Solostar U-100 Insulin) Previous Rx's Medication Instructions Recorded insulin aspart U-100 100 unit/mL 6 unit (0.06 mL) subcut TIDWM #15 06/19/22 (3 mL) subcutaneous pen (Novolog mL FlexPen U-100 Insulin aspart) insulin detemir U-100 100 unit/mL 18 unit (0.18 mL) subcut HS #15 mL 06/19/22 (3 mL) subcutaneous pen (Levemir FlexPen) Allergies Allergy/AdvReac Type Severity Reaction Status Date / Time phytonadione (vitamin K1) Allergy Severe Anaphylaxis Verified 04/23/23 16:55 enoxaparin [From Lovenox] Allergy Diarrhea Verified 01/29/22 15:42 menaquinone-7 (vitamin K2) Allergy Anaphylaxis Verified 01/29/22 15:42 [vitamin K2] Review of Systems Status of ROS: Reports: 10 or more systems reviewed and unremarkable except as noted in History and below [facility] Medical History Falls ?W19.XXXA - Unspecified fall, initial encounter (ICD-10) Sprain of foot, left ?S93.602A - Unspecified sprain of left foot, initial encounter (ICD-10) Injury of knee, right ?S89.91XA - Unspecified injury of right lower leg, initial encounter (ICD-10) Frailty ?R54 - Age-related physical debility (ICD-10) Osteoarthritis of right knee ?M17.11 - Unilateral primary osteoarthritis, right knee (ICD-10) Chronic anticoagulation ?Z79.01 - care home (current) use of anticoagulants (ICD-10) Anemia ?D64.9 - Anemia, unspecified (ICD-10) Medication noncompliance due to cognitive impairment ?R41.9 - Unspecified symptoms and signs involving cognitive functions and awareness (ICD-10) ?Z91.148 - Patient's other noncompliance with medication regimen for other reason (ICD-10) Cognitive impairment ?R41.89 - Other symptoms and signs involving cognitive functions and awareness (ICD-10) Heart failure ?I50.9 - Heart failure, unspecified (ICD-10) History of DVT (deep vein thrombosis) ?Z86.718 - Personal history of other venous thrombosis and embolism (ICD-10) Endocarditis ?I38 - Endocarditis, valve unspecified (ICD-10) Hyperlipidemia ?E78.5 - Hyperlipidemia, unspecified (ICD-10) Hypertension ?I10 - Essential (primary) hypertension (ICD-10) Diabetic polyneuropathy ?E11.42 - Type 2 diabetes mellitus with diabetic polyneuropathy (ICD-10) Diabetes ?E11.9 - Type 2 diabetes mellitus without complications (ICD-10) Anticoagulated with warfarin ?Z79.01 - care home (current) use of anticoagulants (ICD-10) Pleural effusion on left ?J90 - Pleural effusion, not elsewhere classified (ICD-10) Multiple subsegmental pulmonary emboli without acute cor pulmonale ?I26.94 - Multiple subsegmental pulmonary emboli without acute cor pulmonale (ICD-10) History of Clostridioides difficile infection ?Z86.19 - Personal history of other infectious and parasitic diseases (ICD- 10) Enteritis due to Clostridium difficile ?A04.72 - Enterocolitis due to Clostridium difficile, not specified as recurrent (ICD-10) Congestive heart failure ?I50.9 - Heart failure, unspecified (ICD-10) Cellulitis of right lower extremity ?L03.115 - Cellulitis of right lower limb (ICD-10) Acute kidney injury ?N17.9 - Acute kidney failure, unspecified (ICD-10) Surgical History 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) History of partial colectomy ?Z90.49 - Acquired absence of other specified parts of digestive tract (ICD- 10) History of partial gastrectomy ?Z90.3 - Acquired absence of stomach [part of] (ICD-10) H/O splenectomy ?Z90.81 - Acquired absence of spleen (ICD-10) History of open heart surgery (05/17/21) ?Z98.890 - Other specified postprocedural states (ICD-10) History of appendectomy ?Z90.49 - Acquired absence of other specified parts of digestive tract (ICD- 10) Family History Mother Colon cancer Diabetes Cirrhosis Brother Colon cancer Father Stroke High blood pressure Heart disease Social History Narrative: She lives at home with her daughter, Oscar, and her . She reports they live in a small home. She primarily walks around the house holding onto furniture. She has a cane that she occasionally uses, especially when she goes out. She lives on [address]. Her daughter sets up her medications but notes that she does not know if her mom is reliably taking her medications. Daughter specifically notes that her mom has probably been forgetting her insulin at times and her warfarin has been missed at least a couple times in the past week or so. Highest level of school completed/degree received: Associate degree: occupational, technical, vocational program Smoking Status: Former smoker Do you use any of these nicotine containing products: None How often do you have a drink containing alcohol: never AUDIT-C Alcohol total score: 0 Non-prescribed substance use: denies use Caffeine: No (Quit in April 2021) Gender Identity: female service: No Exam Narrative: Exam Narrative: Const: Well-nourished, Well-developed, in mild distress Eyes: PERRL, no conjunctival injection, and symmetrical lids HENT: Atraumatic external nose and ears. Moist mucous membranes. Neck: Symmetric, trachea midline, No thyromegaly. CVS: RRR, No murmurs or gallops. Peripheral pulses 2+ and equal in all extremities RESP: Unlabored respiratory effort. Clear to auscultation bilaterally. GI: Nontender/Nondistended, No rebound or guarding. MSK:Extremities w/o deformity, Normal Active ROM Skin: Warm, Dry. No rashes or lesions. Neuro: Normal Muscle tone, No focal neurological deficits. Psych: Awake, Alert, & Oriented x3. Appropriate mood and affect. Const: Vital Signs, click to edit/add: Vital Signs - 24 hr 04/23/23 16:33 04/23/23 19:43 Temperature 96.8 F L Pulse Rate [Pulse Oximeter] 52 L 61 Respiratory Rate 18 Blood Pressure [Ri ght Forearm] 189/71 H Pulse Oximetry 96 93 Oxygen Delivery Me thod Room Air Room Air Course Vital Signs Vital signs: Initial Vital Signs Temperature 96.8 F L 04/23/23 16:33 Temperature Source Temporal Artery Scan 04/23/23 16:33 Pulse Rate 52 L 04/23/23 16:33 Respiratory Rate 18 04/23/23 16:33 Blood Pressure 189/71 H 04/23/23 16:33 Blood Pressure Mean 110 H 04/23/23 16:33 Blood Pressure Position Supine 04/23/23 16:33 Pulse Oximetry 96 04/23/23 16:33 Oxygen Delivery Method Room Air 04/23/23 16:33 Vital Signs Temperature 96.8 F L 04/23/23 16:33 Pulse Rate 52 L 04/23/23 16:33 Respiratory Rate 18 04/23/23 16:33 Blood Pressure 189/71 H 04/23/23 16:33 Pulse Oximetry 96 04/23/23 16:33 Oxygen Delivery Method Room Air 04/23/23 16:33 Temperature 96.8 F L 04/23/23 16:33 Pulse Rate 61 04/23/23 19:43 Respiratory Rate 18 04/23/23 16:33 Blood Pressure 189/71 H 04/23/23 16:33 Pulse Oximetry 93 04/23/23 19:43 Oxygen Delivery Method Room Air 04/23/23 19:43 Medications Administered Medications: Discontinued Medications Generic Name Dose Route Start Last Admin Trade Name Freq PRN Reason Stop Dose Admin Ondansetron HCl 4 mg 04/23/23 16:51 04/23/23 16:58 Ondansetron 2 Mg/Ml Inj IVP 04/23/23 16:52 4 mg ONCE ONE Administration Medical Decision Making MDM Narrative Medical decision making narrative: Patient is 67-year-old female presenting to the emergency department for hyperglycemia. Mentation is improved significantly since EMS 1st arrived according to the daughter. She is not back to normal yet. Since she is not fully back to her baseline pain will order head CT even though this is most likely due to hypoglycemia. Will also order a BMP and CBC. Zofran given for nausea. Patient's CBC returned with white count 13.3. She showing no acute signs of infection and this level could be secondary to a stress reaction seems unlikely to be infectious related. BMP shows slightly low potassium at 3.3 but otherwise no abnormalities. CT head showed no acute intracranial abnormality reviewed myself and the radiologist. Radiologist also point out there seems to be enlargement the ventricular system while not acutely different than previous imaging it could be normal pressure hydrocephalus in the correct clinical setting. At this point this does not seem like normal pressure hydrocephalus and I do not believe this needs to be further evaluated. They also noticed hypoattenuation within the white matter of both hemispheres the could be chronic small-vessel ischemia versus interstitial edema. Again I not believe this needs further workup as her symptoms seem more related to hypoglycemia. EMS stated the machine said her blood sugar was 175. Her blood sugar at 16-40 was 100. A BMP glucose at 17:24 was 84. Recheck at 17:55 was 76 and patient is given oral intake as she is able to tolerate at this time. She ate and was feeling much better and repeat blood sugar was 101 at 18:45. This is roughly 15 minutes after she ate. Blood sugar at 19:17 was 179. She is feeling back to normal and the plan is to discharge her home. We will recheck her blood sugar 1 more time in an hour. If this is within the acceptable level plan is to discharge the patient home. Final blood sugar at 20:30 was 227 and she was discharged home. Lab Data Labs: Lab Results 04/23/23 Range/Units 17:24 WBC 13.31 H (4.50-11.00) K/uL RBC 4.47 (4.00-5.20) m/uL Hgb 12.8 (12.0-16.0) gm/dL Hct 40.0 (33.0-51.0) % MCV 90 (80-100) fL MCH 29 (26-34) pg MCHC 32 (32-36) gm/dL RDW Coeff of Aditi 14.4 (11.5-15.5) % Plt Count 350 (140-440) K/uL Neut % (Auto) 74.5 H (42.0-72.0) % Lymph % (Auto) 12.8 L (20-44) % [place] % (Auto) 7.8 (0.0-11.0) % Eos % (Auto) 4.3 (0.0-7.0) % Baso % (Auto) 0.4 (0.0-3.0) % Neut # (Auto) 9.90 H (1.7-7.0) K/uL Lymph # (Auto) 1.70 (0.90-2.90) K/uL [place] # (Auto) 1.00 H (0.00-0.90) K/UL Eos # (Auto) 0.60 H (0.00-0.50) K/uL Baso # (Auto) 0.10 (0.00-0.30) K/uL Abs Immat Gran (auto) 0.00 (0.00-0.30) K/uL Imm/Tot Granulo (auto) 0.2 % Sodium 139 (135-149) mmol/L Potassium 3.3 L (3.6-5.1) mmol/L Chloride 106 (96-114) mmol/L Carbon Dioxide 28 (20-32) mmol/L Anion Gap 5 L (7-15) mEq/L BUN 16 (7-30) mg/dL Creatinine 0.6 (0.5-1.5) mg/dL Estimated Creat Clear 49.80 Estimated GFR 99 ml/min Glucose 84 (60-115) mg/dL Calcium 9.1 (8.4-10.6) mg/dL Imaging Data CT scan - head: Radiologist's impression: 1. No CT evidence of acute intracranial abnormality. 2. No significant change in moderate enlargement of the ventricular system, disproportionate to the degree of parenchymal volume loss, which may reflect underlying normal pressure hydrocephalus in the appropriate clinical setting. 3. Patchy and confluent hypoattenuation in the white matter of both hemispheres may reflect a combination of sequela of chronic small vessel ischemia and interstitial edema/transependymal CSF flow. Please note that all CT scans at this facility use dose modulation, iterative reconstruction, and/or weight-based dosing when appropriate to reduce radiation dose to as low as reasonably achievable. Dictated by Rj Cardenas MD @ 04/23/2023 6:28:45 PM Discharge Plan Discharge Clinical Impression: Hypoglycemia Patient Disposition: Home, Self-Care Condition: Improved Instructions: Hypoglycemia in a Person with Diabetes (ED), What to Do if Your Blood Sugar is Low (ED) Additional Instructions: I would hold off on taking your long-acting nighttime insulin. You can use your short-acting insulin if blood sugar goes above 250 . Restart your normal insulin tomorrow morning. If you have troubles managing your blood sugar follow-up with the primary care provider. If her blood sugar gets too low try to eat food to bring it back up. Return to emergency department for new or worsening symptoms Prescriptions: No Action carvedilol 6.25 mg tablet 6.25 mg PO BID warfarin 2 mg tablet 4 - 6 mg PO QPM Rx Instructions: 4 MG ON TUE, FRI AND 6 MG ALL OTHER DAYS lisinopril 20 mg tablet 20 mg PO QDAY amlodipine 10 mg tablet 5 mg PO QDAY furosemide 40 mg tablet 40 mg PO DAILY fluoxetine 10 mg capsule 10 mg PO HS cholecalciferol (vitamin D3) 25 mcg (1,000 unit) capsule 25 mcg PO DAILY coenzyme Q10 100 mg capsule 100 mg PO DAILY insulin aspart U-100 [Novolog FlexPen U-100 Insulin] 100 unit/mL (3 mL) Insulin Pen 6 unit subcut TIDWM Qty: 15 0RF Levemir FlexPen 100 unit/mL (3 mL) Insulin Pen 18 unit subcut HS Qty: 15 0RF insulin glargine [Lantus Solostar U-100 Insulin] 100 unit/mL (3 mL) insulin pen subcut aspirin [Adult Aspirin Regimen] 81 mg tablet,delayed release (DR/EC) 81 mg PO DAILY atorvastatin 40 mg tablet 40 mg PO DAILY Follow Up/Referrals: Hilda Cheema MD [Primary Care Provider] - Stand Alone Forms: [employer] Info Instructions
[2023-04-23] MEDS: ONDANSETRON 2 MG/ML inj 4 MG IVP (16:58)
[2023-04-23 17:31] LABS: Basophils Percent Auto 0.4 % (0.0-3.0); Eosinophils Percent Auto 4.3 % (0.0-7.0); Hemoglobin* 12.8 gm/dL (12.0-16.0); Immature Granulocytes Pct Auto 0.2 %; Lymphocytes Percent Auto 12.8 % (20-44); Mean Corpuscular HGB Conc 32 gm/dL (32-36); Mean Corpuscular Hemoglobin 29 pg (26-34); Mean Corpuscular Volume 90 fL (80-100); Monocytes Percent Auto 7.8 % (0.0-11.0); Neutrophils Percent Auto 74.5 % (42.0-72.0); Platelet Count* 350 K/uL (140-440); RDW Coefficient of Variation % 14.4 % (11.5-15.5); Red Blood Count 4.47 m/uL (4.00-5.20); White Blood Count* 13.31 K/uL (4.50-11.00)
--- NOTE | 2023-04-23 17:33 | CT_ITS ---
Patient: ANDREA CHACON Facility:?[facility] Patient ID:?[id number] Site Patient ID:?[id number]. Site :?[id number] Study:?CT-Head W/O-04/23/2023 6:03:11 PM Ordering Physician:MARSHALL Final Report: CLINICAL HISTORY: Altered mental status. TECHNIQUE: Standard helical CT image acquisition through the head was performed. COMPARISON: Head CT dated 03/18/2021. FINDINGS: No CT evidence of acute intracranial hemorrhage, extra-axial collection, mass effect or midline shift. Gallardo-white matter differentiation is preserved. Again seen is moderate enlargement of the ventricular system with effacement of sulci at the vertex. Patchy and confluent hypoattenuation in the white matter of both hemispheres may reflect a combination of sequela of chronic small vessel ischemia and interstitial edema/transependymal CSF flow. Thinning of the ocular lenses. Mild mucosal thickening of the left maxillary sinus. The paranasal sinuses and mastoid air cells are otherwise well aerated. IMPRESSION: 1. No CT evidence of acute intracranial abnormality. 2. No significant change in moderate enlargement of the ventricular system, disproportionate to the degree of parenchymal volume loss, which may reflect underlying normal pressure hydrocephalus in the appropriate clinical setting. 3. Patchy and confluent hypoattenuation in the white matter of both hemispheres may reflect a combination of sequela of chronic small vessel ischemia and interstitial edema/transependymal CSF flow. Please note that all CT scans at this facility use dose modulation, iterative reconstruction, and/or weight-based dosing when appropriate to reduce radiation dose to as low as reasonably achievable. Dictated by Rj Cardenas MD @ 04/23/2023 6:28:45 PM Signed by:?Rj Cardenas MD @04/23/2023 6:28:45 PM (Electronic Signature)
[2023-04-23 17:42] LABS: Chloride* 106 mmol/L (96-114); Potassium* 3.3 mmol/L (3.6-5.1); Sodium* 139 mmol/L (135-149)
[2023-04-23 17:44] LABS: Slide Review Reflex No
[2023-04-23 17:45] LABS: Carbon Dioxide* 28 mmol/L (20-32); Creatinine* 0.6 mg/dL (0.5-1.5); Estimated Glomerular Filt Rate 99 ml/min
[2023-04-23 17:46] LABS: Blood Urea Nitrogen* 16 mg/dL (7-30); Calcium* 9.1 mg/dL (8.4-10.6); Glucose* 84 mg/dL (60-115)
[2023-04-23 18:14] LABS: Anion Gap 5 mEq/L (7-15)
[2023-04-23 19:43] VITALS: PULSE 61; O2SAT 93
== END 2023-04-23 20:44 | disposition home or self-care (01) ==
PROVIDERS: Emergency Provider Student in an Organized Health Care Education/Training Program; PCP Family Medicine
DX: E11.649 Type 2 diabetes mellitus with hypoglycemia without coma (principal)
CPT/HCPCS: 36415; 70450; 80048; 82962; 85025; 96374; 99283; 99284; J2405

== ENCOUNTER 2023-05-07 17:02 | Outpatient (CLI) | payer OTHER, SELFPAY | END 2023-05-07 17:03 | disposition home or self-care (01) | LOC: AMB 05-12 23:40 | PROVIDERS: PCP Family Medicine; Visit Provider Student in an Organized Health Care Education/Training Program | DX: R55 Syncope and collapse (principal) | CPT/HCPCS: A0425; A0427 ==

== ENCOUNTER 2023-05-07 18:11 | Observation (INO) | payer OTHER, SELFPAY ==
[2023-05-07] VITALS (8 sets, daily range): BP systolic 150–173; BP diastolic 59–76; PULSE 49–63; RESP 14–18; TEMP 35.4–35.7; O2SAT 92–100; BMI 31.6; BMI 37.1
--- NOTE | 2023-05-07 18:26 | CT_ITS ---
Patient: ANDREA CHACON Facility:?[facility] Patient ID:?[id number] Site Patient ID:?[id number] Site :?[id number] Study:?CT-Head WO-05/07/2023 7:39:54 PM Ordering Physician:ALISTAIR Final Report: INDICATION: AMS. TECHNIQUE: Head CT without contrast. COMPARISON: None. FINDINGS: CSF spaces: Within normal limits for age. Brain parenchyma and extra-axial spaces: There are nonspecific low attenuation white matter changes consistent with chronic microvascular disease. Cerebral volume loss however the sulci at the superior margins of the bilateral cerebral hemispheres are mildly effaced maybe related to enlarged ventricles. Sylvian fissures remain dilated bilaterally. No sign of mass, hemorrhage, or midline shift. Skull base and calvarium: The visualized paranasal sinuses and mastoid air cells demonstrate no acute or significant findings. The visualized orbits are grossly unremarkable. No skull fractures. IMPRESSION: 1. no acute intracranial process identified. 2. Periventricular white matter hypodensities likely related small vessel ischemic changes. 3. 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 Dictated by Joaquina Feliciano MD @ 05/07/2023 7:56:52 PM Signed by:?Joaquina Feliciano MD @05/07/2023 7:56:52 PM (Electronic Signature)
--- NOTE | 2023-05-07 18:28 | ED_ITS ---
HPI - Altered Mental Status General Chief Complaint: Altered Mental Status Stated Complaint: Hypoglycemic Time Seen by Provider: 05/07/23 18:14 History of Present Illness HPI narrative: This 67-year-old female comes in by ambulance because of an unresponsive episode that occurred prior to arrival. She was at home when her spouse noted this. She did fall out of her chair and ambulance was contacted. Upon arrival they noted a blood glucose at 49. She did receive a full bag of D10 EN route here. Her blood glucose increased to 128 and upon arrival here her glucose is again down to 86. She had a similar episode around a week ago where she became spacey while she was driving. The patient is complaining of nausea symptoms but otherwise does not have any pain. She did receive 4 mg of Zofran given by ambulance and route here. Related Data Home Medications Medication Instructions Recorded Confirmed amlodipine 10 mg tablet 5 mg PO QDAY 01/24/22 05/07/23 carvedilol 6.25 mg tablet 6.25 mg PO BID 01/24/22 05/07/23 furosemide 40 mg tablet 40 mg PO DAILY 01/24/22 05/07/23 lisinopril 20 mg tablet 20 mg PO QDAY 01/24/22 05/07/23 warfarin 2 mg tablet 4 - 6 mg PO QPM 01/24/22 05/07/23 aspirin 81 mg tablet,delayed 81 mg PO DAILY 02/25/22 05/07/23 release (Adult Aspirin Regimen) atorvastatin 40 mg tablet 40 mg PO DAILY 02/25/22 05/07/23 cholecalciferol (vitamin D3) 25 25 mcg PO DAILY 06/17/22 05/07/23 mcg (1,000 unit) capsule coenzyme Q10 100 mg capsule 100 mg PO DAILY 06/17/22 05/07/23 insulin glargine 100 unit/mL (3 unit subcut 04/23/23 mL) subcutaneous pen (Lantus Solostar U-100 Insulin) Previous Rx's Medication Instructions Recorded insulin aspart U-100 100 unit/mL 6 unit (0.06 mL) subcut TIDWM #15 06/19/22 (3 mL) subcutaneous pen (Novolog mL FlexPen U-100 Insulin aspart) insulin detemir U-100 100 unit/mL 18 unit (0.18 mL) subcut HS #15 mL 05/03/23 (3 mL) subcutaneous pen (Levemir FlexPen) Allergies Allergy/AdvReac Type Severity Reaction Status Date / Time phytonadione (vitamin K1) Allergy Severe Anaphylaxis Verified 05/07/23 18:23 enoxaparin [From Lovenox] Allergy Diarrhea Verified 05/07/23 18:23 menaquinone-7 (vitamin K2) Allergy Anaphylaxis Verified 05/07/23 18:23 [vitamin K2] Review of Systems Status of ROS: Reports: 10 or more systems reviewed and unremarkable except as noted in History and below Narrative: Constitutional: No fevers, no weight gain or loss. She does not report any pain. Eyes: No discharge. No vision changes. HENT: No congestion, no sore throat, no ear pain. Cardiovascular: No chest pain, no palpitations. Respiratory: No shortness of breath, no wheezes, no cough. Gastrointestinal: No abdominal pain, no diarrhea. She has nausea and does report 1 episode of vomiting. Genitourinary: No dysuria, no hematuria. Musculoskeletal: Normal range of motion. Skin: No rashes, no pruritis. Neurological: No dizziness, weakness, sensory change, speech change. Endo/Heme/Allergies: No bruising or bleeding. No polydipsia. Pysch: no suicidality, no anxiety, no insomnia. All other systems reviewed and are negative. 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 (ICD-10) Anemia ?D64.9 - Anemia, unspecified (ICD-10) Medication noncompliance due to cognitive impairment ?R41.9 - Unspecified symptoms and signs involving cognitive functions and awareness (ICD-10) ?Z91.148 - Patient's other noncompliance with medication regimen for other reason (ICD-10) Cognitive impairment ?R41.89 - Other symptoms and signs involving cognitive functions and awareness (ICD-10) Heart failure ?I50.9 - Heart failure, unspecified (ICD-10) History of DVT (deep vein thrombosis) ?Z86.718 - Personal history of other venous thrombosis and embolism (ICD-10) Endocarditis ?I38 - Endocarditis, valve unspecified (ICD-10) Hyperlipidemia ?E78.5 - Hyperlipidemia, unspecified (ICD-10) Hypertension ?I10 - Essential (primary) hypertension (ICD-10) Diabetic polyneuropathy ?E11.42 - Type 2 diabetes mellitus with diabetic polyneuropathy (ICD-10) Diabetes ?E11.9 - Type 2 diabetes mellitus without complications (ICD-10) Anticoagulated with warfarin ?Z79.01 - [facility] (current) use of anticoagulants (ICD-10) Pleural effusion on left ?J90 - Pleural effusion, not elsewhere classified (ICD-10) Multiple subsegmental pulmonary emboli without acute cor pulmonale ?I26.94 - Multiple subsegmental pulmonary emboli without acute cor pulmonale (ICD-10) History of Clostridioides difficile infection ?Z86.19 - Personal history of other infectious and parasitic diseases (ICD- 10) Enteritis due to Clostridium difficile ?A04.72 - Enterocolitis due to Clostridium difficile, not specified as recurrent (ICD-10) Congestive heart failure ?I50.9 - Heart failure, unspecified (ICD-10) Cellulitis of right lower extremity ?L03.115 - Cellulitis of right lower limb (ICD-10) Acute kidney injury ?N17.9 - Acute kidney failure, unspecified (ICD-10) Surgical History 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) History of partial colectomy ?Z90.49 - Acquired absence of other specified parts of digestive tract (ICD- 10) History of partial gastrectomy ?Z90.3 - Acquired absence of stomach [part of] (ICD-10) H/O splenectomy ?Z90.81 - Acquired absence of spleen (ICD-10) History of open heart surgery (05/17/21) ?Z98.890 - Other specified postprocedural states (ICD-10) History of appendectomy ?Z90.49 - Acquired absence of other specified parts of digestive tract (ICD- 10) Family History Mother Colon cancer Diabetes Cirrhosis Brother Colon cancer Father Stroke High blood pressure Heart disease Social History Narrative: She lives at home with her daughter, Oscar, and her . She reports they live in a small home. She primarily walks around the house holding onto furniture. She has a cane that she occasionally uses, especially when she goes out. She [place] on [address]. Her daughter sets up her medications but notes that she does not know if her mom is reliably taking her medications. Daughter specifically notes that her mom has probably been forgetting her insulin at times and her warfarin has been missed at least a couple times in the past week or so. Highest level of school completed/degree received: Associate degree: occupational, technical, vocational program Smoking Status: Former smoker Do you use any of these nicotine containing products: None How often do you have a drink containing alcohol: never AUDIT-C Alcohol total score: 0 Non-prescribed substance use: denies use Caffeine: No (Quit in April 2021) Gender Identity: female service: No Exam Narrative: Exam Narrative: Constitutional: Well-developed, well-nourished, no acute distress. HEENT: Normocephalic, atraumatic. Neck: Normal range of motion. Nontender. Supple. Heart: Regular. No murmurs. Normal rate. Intact distal pulses. Lungs: Clear to auscultation. No chest discomfort. No wheezes, rhonchi, or rales. Abdomen: Normal bowel sounds. Nontender. No rebound tenderness. Genitalia: Deferred. Back: No midline tenderness. Normal range of motion. Extremities: Normal range of motion. No injury. Skin: Intact. No rash. Warm. No erythema or pallor. Neurologic: No altered sensation. No weakness. Alert and oriented. Psychiatric: No suicidality. No anxiety or depression. No insomnia. Nursing notes and vitals signs are reviewed. Const: Vital Signs, click to edit/add: Vital Signs - 24 hr 05/07/23 18:13 05/07/23 18:33 05/07/23 19:00 Temperature 95.7 F L Pulse Rate 49 L 50 L Pulse Rate [Pulse Oximeter] 52 L Respiratory Rate 18 14 16 Blood Pressure 150/59 H 173/70 H Blood Pressure [Le ft Upper Arm] 164/76 H Pulse Oximetry 99 100 92 Oxygen Delivery Me thod Room Air 05/07/23 19:46 05/07/23 20:02 Temperature 96.3 F L Pulse Rate 54 L 55 L Pulse Rate [Pulse Oximeter] Respiratory Rate 16 Blood Pressure 155/66 H Blood Pressure [Le ft Upper Arm] Pulse Oximetry 98 95 Oxygen Delivery Me thod Course Vital Signs Vital signs: Initial Vital Signs Temperature 95.7 F L 05/07/23 18:13 Temperature Source Tympanic 05/07/23 18:13 Pulse Rate 52 L 05/07/23 18:13 Pulse Rhythm Regular 05/07/23 18:13 Respiratory Rate 18 05/07/23 18:13 Blood Pressure 164/76 H 05/07/23 18:13 Blood Pressure Mean 105 05/07/23 18:13 Blood Pressure Position Semi-Fowlers 05/07/23 18:13 Pulse Oximetry 99 05/07/23 18:13 Oxygen Delivery Method Room Air 05/07/23 18:13 Vital Signs Temperature 95.7 F L 05/07/23 18:13 Pulse Rate 52 L 05/07/23 18:13 Respiratory Rate 18 05/07/23 18:13 Blood Pressure 164/76 H 05/07/23 18:13 Pulse Oximetry 99 05/07/23 18:13 Oxygen Delivery Method Room Air 05/07/23 18:13 Temperature 96.3 F L 05/07/23 20:14 Pulse Rate 52 L 05/07/23 20:14 Respiratory Rate 16 05/07/23 20:14 Blood Pressure 164/76 H 05/07/23 20:14 Pulse Oximetry 95 05/07/23 20:02 Oxygen Delivery Method Room Air 05/07/23 18:13 Medications Administered Medications: Generic Name Dose Route Start Last Admin Trade Name Freq PRN Reason Stop Dose Admin Dextrose 250 mls @ 1,000 mls/hr 05/07/23 18:15 05/07/23 19:00 10 % Dextrose 500 Ml IV 05/07/23 18:29 Infused .Q15M ONE Infusion Ondansetron HCl 4 mg 05/07/23 18:34 05/07/23 18:51 Ondansetron 2 Mg/Ml Inj IVP 05/07/23 18:35 4 mg ONCE ONE Administration MDM - Altered Mental Status MDM Narrative Medical decision making narrative: This patient comes in by ambulance because of a unresponsive episode. She was found have low blood glucose and was treated with D10 on the way here. Her glucose improved temporarily but again went back down to 69 he for a 2nd half a L of D10 was administered. Her glucose now is remaining up at around 200. Lab results are obtained and show a leukocytosis with a white count at around 18,000. The patient is not showing any obvious sign of infection. She has had some episodes in the past week or so where she has become less responsive and it is likely that this is related to hypoglycemic events. I did speak with the hospitalist network communications engineer, Dr. White, who agrees to her admission. Lab Data Labs: Lab Results 05/07/23 05/07/23 Range/Units 18:30 18:45 WBC 18.42 H (4.50-11.00) K/uL RBC 4.85 (4.00-5.20) m/uL Hgb 13.7 (12.0-16.0) gm/dL Hct 43.6 (33.0-51.0) % MCV 90 (80-100) fL MCH 28 (26-34) pg MCHC 31 L (32-36) gm/dL RDW Coeff of Aditi 14.4 (11.5-15.5) % Plt Count 380 (140-440) K/uL Neut % (Auto) 80.4 H (42.0-72.0) % Lymph % (Auto) 9.8 L (20-44) % Osborne % (Auto) 6.4 (0.0-11.0) % Eos % (Auto) 2.8 (0.0-7.0) % Baso % (Auto) 0.4 (0.0-3.0) % Neut # (Auto) 14.80 H (1.7-7.0) K/uL Lymph # (Auto) 1.80 (0.90-2.90) K/uL Osborne # (Auto) 1.20 H (0.00-0.90) K/UL Eos # (Auto) 0.50 (0.00-0.50) K/uL Baso # (Auto) 0.10 (0.00-0.30) K/uL Abs Immat Gran (auto) 0.00 (0.00-0.30) K/uL Imm/Tot Granulo (auto) 0.2 % INR 2.01 H (0.91-1.10) Sodium 140 (135-149) mmol/L Potassium 3.5 L (3.6-5.1) mmol/L Chloride 102 (96-114) mmol/L Carbon Dioxide 28 (20-32) mmol/L Anion Gap 10 (7-15) mEq/L BUN 20 (7-30) mg/dL Creatinine 0.6 (0.5-1.5) mg/dL Estimated Creat Clear 49.80 Estimated GFR 99 ml/min Glucose 83 (60-115) mg/dL Lactate 1.4 (0.5-1.9) mmol/L Calcium 9.8 (8.4-10.6) mg/dL SARS-CoV-2 (PCR) Negative SARS-CoV-2 (Negative) Influenza Type A (PCR) Negative PCR FLU A (Negative) Influenza Type B (PCR) Negative PCR FLU B (Negative) RSV (PCR) Negative PCR RSV (Negative) POC Troponin I 0.01 (0.01-0.04) ng/ml ECG Data Attestation: I personally reviewed and interpreted this ECG as follows: Interpretation: Sinus bradycardia, rate 50 beats per minute. There are no specific ST or T-wave abnormalities. Discharge Plan Discharge Clinical Impression: Hypoglycemia, Leukocytosis Patient Disposition: Admitted As Inpatient Condition: Improved
[2023-05-07] MEDS: 10 % DEXTROSE 500 ML 250 ML 1000 ML IV (18:30)
[2023-05-07 18:44] LABS: Lactate* 1.4 mmol/L (0.5-1.9)
[2023-05-07 18:45] LABS: Basophils Percent Auto 0.4 % (0.0-3.0); Eosinophils Percent Auto 2.8 % (0.0-7.0); Hematocrit 43.6 % (33.0-51.0); Hemoglobin* 13.7 gm/dL (12.0-16.0); Immature Granulocytes Pct Auto 0.2 %; Lymphocytes Percent Auto 9.8 % (20-44); Mean Corpuscular HGB Conc 31 gm/dL (32-36); Mean Corpuscular Hemoglobin 28 pg (26-34); Mean Corpuscular Volume 90 fL (80-100); Monocytes Percent Auto 6.4 % (0.0-11.0); Neutrophils Percent Auto 80.4 % (42.0-72.0); Platelet Count* 380 K/uL (140-440); RDW Coefficient of Variation % 14.4 % (11.5-15.5); Red Blood Count 4.85 m/uL (4.00-5.20); White Blood Count* 18.42 K/uL (4.50-11.00)
[2023-05-07 18:49] LABS: Slide Review Reflex No
[2023-05-07] MEDS: ONDANSETRON 2 MG/ML inj 4 MG IVP (18:51)
--- NOTE | 2023-05-07 18:52 | XR_ITS ---
Patient: ANDREA CHACON Facility:?[facility] Patient ID:?[id number] Site Patient ID:?[id number] Site :?1955 Study:?XRay-Chest PCXR-05/07/2023 7:42:07 PM Ordering Physician:ALISTAIR Final Report: INDICATION: Leukocytosis. TECHNIQUE: Chest 1 view. COMPARISON: May 11, 2021. FINDINGS: Cardiovascular and mediastinum: Cardiomediastinal silhouette is mildly enlarged.. Lungs and pleural spaces: Lungs are clear. No evidence of pleural effusion. No pneumothorax identified. Bones and soft tissues: Unremarkable. IMPRESSION: No acute cardiopulmonary process identified. No significant interval change. Dictated by Joaquina Feliciano MD @ 05/07/2023 7:57:54 PM Signed by:?Joaquina Feliciano MD @05/07/2023 7:57:54 PM (Electronic Signature)
[2023-05-07 18:57] LABS: Troponin, Point-of-Care* 0.01 ng/ml (0.01-0.04)
[2023-05-07 19:03] LABS: Chloride* 102 mmol/L (96-114); Sodium* 140 mmol/L (135-149)
[2023-05-07 19:04] LABS: Potassium* 3.5 mmol/L (3.6-5.1)
[2023-05-07 19:06] LABS: Creatinine* 0.6 mg/dL (0.5-1.5); Estimated Glomerular Filt Rate 99 ml/min
[2023-05-07 19:07] LABS: Anion Gap 10 mEq/L (7-15); Blood Urea Nitrogen* 20 mg/dL (7-30); Calcium* 9.8 mg/dL (8.4-10.6); Carbon Dioxide* 28 mmol/L (20-32); Glucose* 83 mg/dL (60-115)
[2023-05-07 19:08] LABS: INR 2.01 (0.91-1.10); Prothrombin Time 24.2 Seconds
[2023-05-07 19:42] LABS: PCR FLU A Negative PCR FLU A (Negative); PCR FLU B Negative PCR FLU B (Negative); PCR RSV Negative PCR RSV (Negative); SARS PCR* Negative SARS-CoV-2 (Negative)
[2023-05-07 21:13] LABS: Albumin* 4.2 g/dL (3.3-5.0)
[2023-05-07 21:16] LABS: Bilirubin Direct* 0.3 mg/dL (0.0-0.5); Bilirubin Total* 0.6 mg/dL (0.1-1.5)
[2023-05-07 21:17] LABS: Alanine Aminotransferase* 22 U/L (4-35); Alkaline Phosphatase* 138 U/L (40-150); Aspartate Amino Transferase* 39 U/L (12-35)
--- NOTE | 2023-05-07 21:20 | MR_ITS ---
Patient: ANDREA CHACON Facility:?[facility] Patient ID:?[id number] Site Patient ID:?[id number] Site :?1955 Study:?MRI-Head WO-05/07/2023 10:55:46 PM Ordering Physician:RAY Final Report: Indication: Incontinence, ataxia Technique: Multisequence multiplanar noncontrast MRI through the head. Sagittal T1 and axial T2 FLAIR, T2 FS, SWI, and DWI imaging performed. Comparison: CT head performed same day, MRI performed 01/09/2011 Findings: Brain: Question punctate acute infarct in the left frontal call radiata. No other acute infarct appreciated. No significant mass effect or midline shift. No hemorrhage. Severe chronic microvascular ischemic disease. Moderate to severe global parenchymal volume loss. Chronic bilateral cerebellar infarcts. Ventricles: No acute abnormality appreciated. Ventricular caliber appears out of proportion for volume loss. Flow voids: Grossly maintained. Orbits, sinuses and mastoids: No acute abnormality appreciated. Trace sinus disease. Calvarium and soft tissues: No acute abnormality appreciated. Impression: 1. Question punctate nonhemorrhagic acute left frontal call radiata infarct. No other acute intracranial abnormality is appreciated. 2. On a background of severe chronic sinus disease, there appears to be disproportionate ventricular caliber relative to volume loss. Findings can be seen in the setting of normal pressure hydrocephalus. Dictated by Adiel Kennedy MD @ 05/07/2023 11:47:42 PM Signed by:?Adiel Kennedy MD @05/07/2023 11:47:42 PM (Electronic Signature)
[2023-05-07 21:37] LABS: Magnesium* 2.2 mg/dL (1.5-2.6)
[2023-05-07 21:41] LABS: Appearance Urine Clear (Clear); Bilirubin Urine Negative (Negative); Blood Urine 1+ (Negative); Color Urine Yellow (Yellow); Glucose Urine Negative (Negative); Ketones Urine Negative (Negative); Leukocyte Esterase Urine Negative (Negative); Nitrite Urine Negative (Negative); Protein Urine 3+ (Negative); Specific Gravity Urine 1.025 (1.000-1.030); Urobilinogen Urine 0.2 (0.2-1.0)
[2023-05-07 21:49] LABS: Bacteria Urine Moderate; RBC Urine 0-2 (0-2); Squamous Epithelial Cell Urine Few (None-Few); WBC Urine 0-2 (0-5)
--- NOTE | 2023-05-07 23:09 | P.IMHP_ITS ---
Hospitalist- H&P: HPI History of Present Illness Date Seen: 05/07/23 Chief complaint: Hypoglycemic Narrative: Andrea Borrego is a 67 year old female with diabetes mellitus admitted through the emergency department with altered mental status, fall, possible syncope, hypoglycemia today. Patient lives at home with her . She was sitting in a chair and he heard a noise and came in to find that she had fallen on the floor. He suspected she had fallen and hit her head. She was hard to arouse. They called 911 and brought to the emergency department. The paramedics found her blood sugar in the 40s. They gave her dextrose and her blood sugar improved with this her mental status also improved. She received additional glucose in the emergency department and had continued improvement in her mental status door thinks she is not quite back to normal. She is not aware of any injury. They did head CT in the emergency department which showed no intracranial bleeding. She is on warfarin. She has had problems with her diabetes. Her hemoglobin A1c on March 21 was 12.3 in clinic. At that time discussion with the patient, her doctor and her daughter indicated that it was likely that she was forgetting her medicines at times. Her compliance with her blood sugar monitoring and medications is uncertain. There have been ongoing concerns about her cognition. She admits that she is quite forgetful. She was hospitalized here in June of last year where she was f ound to have a Aiken of 21/30. Also notable at that time and again on this admission is the head CT showing possible normal pressure hydrocephalus. It is not clear that this has been further evaluated. She has incontinence of urine and gait instability as well. Under admission in June of 2022 she presented with recurrent falls as a chief complaint. She is not aware of a fever but she did feel chilled this evening. Today she is also felt quite nauseated and did have an emesis. She also had diarrhea today. Diarrhea an emesis were nonbloody. It has been no known exposure to anybody else with diarrheal illness. Review of Systems Narrative: Review of systems is unremarkable except as noted above [facility] Medical History (Updated 05/07/23 @ 23:29 by Julio White MD) Ataxia ?R27.0 - Ataxia, unspecified (ICD-10) Poorly controlled diabetes mellitus ?E11.65 - Type 2 diabetes mellitus with hyperglycemia (ICD-10) Cognitive impairment ?R41.89 - Other symptoms and signs involving cognitive functions and awareness (ICD-10) Falls ?W19.XXXA - Unspecified fall, initial encounter (ICD-10) Sprain of foot, left ?S93.602A - Unspecified sprain of left foot, initial encounter (ICD-10) Injury of knee, right ?S89.91XA - Unspecified injury of right lower leg, initial encounter (ICD-10) Frailty ?R54 - Age-related physical debility (ICD-10) Osteoarthritis of right knee ?M17.11 - Unilateral primary osteoarthritis, right knee (ICD-10) Chronic anticoagulation ?Z79.01 - rodent exterminator (current) use of anticoagulants (ICD-10) Anemia ?D64.9 - Anemia, unspecified (ICD-10) Medication noncompliance due to cognitive impairment ?R41.9 - Unspecified symptoms and signs involving cognitive functions and awareness (ICD-10) ?Z91.148 - Patient's other noncompliance with medication regimen for other reason (ICD-10) Heart failure ?I50.9 - Heart failure, unspecified (ICD-10) History of DVT (deep vein thrombosis) ?Z86.718 - Personal history of other venous thrombosis and embolism (ICD-10) Endocarditis ?I38 - Endocarditis, valve unspecified (ICD-10) Hyperlipidemia ?E78.5 - Hyperlipidemia, unspecified (ICD-10) Hypertension ?I10 - Essential (primary) hypertension (ICD-10) Diabetic polyneuropathy ?E11.42 - Type 2 diabetes mellitus with diabetic polyneuropathy (ICD-10) Diabetes ?E11.9 - Type 2 diabetes mellitus without complications (ICD-10) Anticoagulated with warfarin ?Z79.01 - rodent exterminator (current) use of anticoagulants (ICD-10) Pleural effusion on left ?J90 - Pleural effusion, not elsewhere classified (ICD-10) Multiple subsegmental pulmonary emboli without acute cor pulmonale ?I26.94 - Multiple subsegmental pulmonary emboli without acute cor pulmonale (ICD-10) History of Clostridioides difficile infection ?Z86.19 - Personal history of other infectious and parasitic diseases (ICD- 10) Enteritis due to Clostridium difficile ?A04.72 - Enterocolitis due to Clostridium difficile, not specified as recurrent (ICD-10) Congestive heart failure ?I50.9 - Heart failure, unspecified (ICD-10) Cellulitis of right lower extremity ?L03.115 - Cellulitis of right lower limb (ICD-10) Acute kidney injury ?N17.9 - Acute kidney failure, unspecified (ICD-10) Surgical History 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) History of partial colectomy ?Z90.49 - Acquired absence of other specified parts of digestive tract (ICD- 10) History of partial gastrectomy ?Z90.3 - Acquired absence of stomach [part of] (ICD-10) H/O splenectomy ?Z90.81 - Acquired absence of spleen (ICD-10) History of open heart surgery (05/17/21) ?Z98.890 - Other specified postprocedural states (ICD-10) History of appendectomy ?Z90.49 - Acquired absence of other specified parts of digestive tract (ICD- 10) Family History Mother Colon cancer Diabetes Cirrhosis Brother Colon cancer Father Stroke High blood pressure Heart disease Social History Narrative: She lives at home with her daughter, Oscar, and her . She reports they live in a small home. She primarily walks around the house holding onto furniture. She has a cane that she occasionally uses, especially when she goes out. She lives on [address]. Her daughter sets up her medications but notes that she does not know if her mom is reliably taking her medications. Daughter specifically notes that her mom has probably been forgetting her insulin at times and her warfarin has been missed at least a couple times in the past week or so. Highest level of school completed/degree received: Associate degree: occupational, technical, vocational program Smoking Status: Former smoker Do you use any of these nicotine containing products: None How often do you have a drink containing alcohol: never AUDIT-C Alcohol total score: 0 Non-prescribed substance use: denies use Caffeine: No (Quit in April 2021) Gender Identity: female service: No Meds Home Medications and Allergies Home Medications Medication Instructions Recorded Confirmed Type amlodipine 10 mg tablet 5 mg PO QDAY 01/24/22 05/07/23 History carvedilol 6.25 mg tablet 6.25 mg PO BID 01/24/22 05/07/23 History furosemide 40 mg tablet 40 mg PO DAILY 01/24/22 05/07/23 History lisinopril 20 mg tablet 20 mg PO QDAY 01/24/22 05/07/23 History warfarin 2 mg tablet 4 - 6 mg PO QPM 01/24/22 05/07/23 History aspirin 81 mg tablet,delayed 81 mg PO DAILY 02/25/22 05/07/23 History release (Adult Aspirin Regimen) atorvastatin 40 mg tablet 40 mg PO DAILY 02/25/22 05/07/23 History cholecalciferol (vitamin D3) 25 25 mcg PO DAILY 06/17/22 05/07/23 History mcg (1,000 unit) capsule coenzyme Q10 100 mg capsule 100 mg PO DAILY 06/17/22 05/07/23 History insulin glargine 100 unit/mL (3 unit subcut 04/23/23 History mL) subcutaneous pen (Lantus Solostar U-100 Insulin) Allergies Allergy/AdvReac Type Severity Reaction Status Date / Time phytonadione (vitamin K1) Allergy Severe Anaphylaxis Verified 05/07/23 18:23 enoxaparin [From Lovenox] Allergy Diarrhea Verified 05/07/23 18:23 menaquinone-7 (vitamin K2) Allergy Anaphylaxis Verified 05/07/23 18:23 [vitamin K2] Exam Narrative: Exam Narrative: She is alert and pleasant and in nose distress. She gives her own history. Corroboration with her and daughter on the details. She does not remember the details around her fall and loss of consciousness and unresponsiveness. Head is without obvious trauma. Eyes are normal. Pupils are equal round reactive to light. Eye no facial asymmetry. Oropharynx is normal. Tongue is midline. She has dry mucous membranes. Neck is supple without mass or adenopathy. Respirations are clear to auscultation. Breathing is unlabored. Good air exchange all lung solorio. Cardiovascular: S1, S2, regular rate and rhythm. No murmur gallop or rub. Abdomen: Bowel sounds active. Abdomen is soft without tenderness or mass. Extremities: Upper extremities move well. No obvious trauma. She has a small knee effusion around the right knee without warmth or redness. She has mild venous skin changes and erythema over both shins. She has diminished sensation and pulses. Inspection of her toes shows that she has erythema and fissuring of the skin between all of her toes with malodorous moist discharge. Left 2nd toe is also quite tender to touch. No obvious deformity. Const: Vital Signs, click to edit/add: Vital Signs - 24 hr 05/07/23 18:13 05/07/23 18:33 05/07/23 19:00 Temperature 95.7 F L Pulse Rate 49 L 50 L Pulse Rate [Pulse Oximeter] 52 L Respiratory Rate 18 14 16 Blood Pressure 150/59 H 173/70 H Blood Pressure [Le ft Upper Arm] 164/76 H Pulse Oximetry 99 100 92 Oxygen Delivery Me thod Room Air 05/07/23 19:46 05/07/23 20:02 05/07/23 20:14 Temperature 96.3 F L 96.3 F L Pulse Rate 54 L 55 L Pulse Rate [Pulse Oximeter] 52 L Respiratory Rate 16 16 Blood Pressure 155/66 H Blood Pressure [Le ft Upper Arm] 164/76 H Pulse Oximetry 98 95 Oxygen Delivery Me thod Documenting provider has reviewed patient's vital signs: yes Hospitalist - H&P: Result Labs Labs: Short CBC 05/07/23 Range/Units 18:30 WBC 18.42 H (4.50-11.00) K/uL Hgb 13.7 (12.0-16.0) gm/dL Hct 43.6 (33.0-51.0) % Plt Count 380 (140-440) K/uL BMP 05/07/23 18:30 Sodium 140 Potassium 3.5 L Chloride 102 Carbon Dioxide 28 BUN 20 Creatinine 0.6 Glucose 83 Calcium 9.8 Liver Function 05/07/23 Range/Units 18:30 Total Bilirubin 0.6 (0.1-1.5) mg/dL Direct Bilirubin 0.3 (0.0-0.5) mg/dL AST 39 H (12-35) U/L ALT 22 (4-35) U/L Alkaline Phosphatase 138 (40-150) U/L Albumin 4.2 (3.3-5.0) g/dL Urine 05/07/23 Range/Units 21:34 Urine Color Yellow (Yellow) Urine Appearance Clear (Clear) Urine pH 7.0 (5.0-8.5) Ur Specific [place] 1.025 (1.000-1.030) Urine Protein 3+ A (Negative) Urine Glucose (UA) Negative (Negative) Imaging Chest x-ray: Radiologist's impression: Final Report: INDICATION: Leukocytosis. TECHNIQUE: Chest 1 view. COMPARISON: May 11, 2021. FINDINGS: Cardiovascular and mediastinum: Cardiomediastinal silhouette is mildly enlarged.. Lungs and pleural spaces: Lungs are clear. No evidence of pleural effusion. No pneumothorax identified. Bones and soft tissues: Unremarkable. IMPRESSION: No acute cardiopulmonary process identified. No significant interval change. CT scan - head: Radiologist's impression: Patient: ANDREA BORREGO Facility:?[facility] Patient ID:?[id number] Site Patient ID:?[id number] Site :?[id number] Study:?CT Head WO-05/07/2023 7:39:54 PM Ordering Physician:ALISTAIR Final Report: INDICATION: AMS. TECHNIQUE: Head CT without contrast. COMPARISON: None. FINDINGS: CSF spaces: Within normal limits for age. Brain parenchyma and extra-axial spaces: There are nonspecific low attenuation white matter changes consistent with chronic microvascular disease. Cerebral volume loss however the sulci at the superior margins of the bilateral cerebral hemispheres are mildly effaced maybe related to enlarged ventricles. Sylvian fissures remain dilated bilaterally. No sign of mass, hemorrhage, or midline shift. Skull base and calvarium: The visualized paranasal sinuses and mastoid air cells demonstrate no acute or significant findings. The visualized orbits are grossly unremarkable. No skull fractures. IMPRESSION: 1. no acute intracranial process identified. 2. Periventricular white matter hypodensities likely related small vessel ischemic changes. 3. 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 Unclear if patient is going to be able to manage diabetes as an outpatient with cognitive impairment and both hyper and hypoglycemia being problems. Status: Acute (2) Poorly controlled diabetes mellitus: Problem comment: Hemoglobin A1c of 12.3 on March 21 and now recurrent episodes of hypoglycemia. Monitoring in the hospital and a better outpatient plan for monitoring and treatment Status: Acute (3) Leukocytosis: Problem comment: No definite systemic infection. Continue to monitor for signs of infectious illness. Status: Acute (4) Normal pressure hydrocephalus: Status: Suspected (5) Ataxia: Status: Acute (6) Chronic anticoagulation: Problem comment: Noncompliance due to forgetfulness Status: Acute (7) Cognitive impairment: Problem comment: - patient and daughter both endorse some memory loss recently; MOCA 21/30 in June of 2022. Recheck Status: Acute (8) Tinea pedis: Problem comment: Start topical treatment with clotrimazole Status: Suspected Plan Patient is admitted to the hospital for evaluation of possible syncope, altered mental status, recurrent hypoglycemia, leukocytosis, cognitive impairment, ataxia, possible normal pressure hydrocephalus. Total Time Spent Total Time Spent: Total time spent today is 75 minutes, 50 minutes in coordination care and discussing with patient and family and other providers management of diabetes, monitoring for infection, disability
[2023-05-07] MEDS: AMLODIPINE 10 MG TABLET 5 MG PO (23:34)
[2023-05-07] MEDS: lisinopriL 20 MG TABLET 40 MG PO (23:34)
[2023-05-07] MEDS: SODIUM CHLORIDE 0.9 % (FLUSH) 10 ML SYRINGE 5 ML IVF (23:34)
[2023-05-07] MEDS: 5 % DEXTROSE/0.9% SOD CHLORIDE 1,000 ML 75 ML IV (23:34)
[2023-05-08] VITALS (9 sets, daily range): BP systolic 142–163; BP diastolic 62–77; PULSE 65–76; RESP 14–18; TEMP 36.5–36.9; O2SAT 96–99; BMI 37.0
[2023-05-08] MEDS: INSULIN ASPART 100 UNIT/ML SUBCUT ×3 (02:37→20:41)
[2023-05-08] MEDS: SODIUM CHLORIDE 0.9 % (FLUSH) 10 ML SYRINGE 5 ML IVF ×2 (04:52→20:39)
[2023-05-08] MEDS: ONDANSETRON 2 MG/ML inj 4 MG IVP (04:52)
--- NOTE | 2023-05-08 05:56 | PC.NURSE ---
Shift note: BG overnight in 200dth, corrected with SS NovoLog. Pt had an episode of nausea, no emesis, treated per eMAR with complete relief of symptoms. Nina inserted upon admission, fluid intake encouraged.
[2023-05-08 06:25] LABS: Basophils Absolute Auto 0.04 K/uL (0.00-0.30); Basophils Percent Auto 0.4 % (0.0-3.0); Eosinophils Absolute Auto 0.16 K/uL (0.00-0.50); Eosinophils Percent Auto 1.5 % (0.0-7.0); Hematocrit 36.5 % (33.0-51.0); Hemoglobin* 11.7 gm/dL (12.0-16.0); Immature Granulocytes Abs Auto 0.07 K/uL (0.00-0.30); Immature Granulocytes Pct Auto 0.7 %; Lymphocytes Percent Auto 15.4 % (20-44); Mean Corpuscular HGB Conc 32 gm/dL (32-36); Mean Corpuscular Hemoglobin 29 pg (26-34); Mean Corpuscular Volume 90 fL (80-100); Monocytes Percent Auto 7.8 % (0.0-11.0); Neutrophils Percent Auto 74.2 % (42.0-72.0); Platelet Count* 390 K/uL (140-440); RDW Coefficient of Variation % 14.3 % (11.5-15.5); Red Blood Count 4.07 m/uL (4.00-5.20); White Blood Count* 10.55 K/uL (4.50-11.00)
[2023-05-08 06:31] LABS: Slide Review Reflex No
[2023-05-08 06:45] LABS: Chloride* 102 mmol/L (96-114); Sodium* 134 mmol/L (135-149)
[2023-05-08 06:48] LABS: Creatinine* 0.7 mg/dL (0.5-1.5); Est. Creatinine Clearance* 47.79; Estimated Glomerular Filt Rate 95 ml/min
[2023-05-08 06:49] LABS: Anion Gap 4 mEq/L (7-15); Blood Urea Nitrogen* 22 mg/dL (7-30); Calcium* 8.8 mg/dL (8.4-10.6); Carbon Dioxide* 28 mmol/L (20-32); Glucose* 230 mg/dL (60-115)
[2023-05-08 06:58] LABS: C Reactive Protein* < 0.5 mg/dL (0.5-1.0)
[2023-05-08] MEDS: INSULIN ASPART 100 UNIT/ML 10 UNIT SUBCUT ×3 (07:56→17:13)
[2023-05-08] MEDS: carvediloL 6.25 MG TABLET PO ×2 (09:26→20:38)
[2023-05-08] MEDS: FUROSEMIDE 40 MG TABLET PO (09:26)
[2023-05-08] MEDS: CLOTRIMAZOLE 1 % CREAM 1 APPLIC TOPICAL ×2 (09:27→20:39)
[2023-05-08] MEDS: COENZYME Q10 100 MG CAPSULE PO (09:27)
[2023-05-08] MEDS: ATORVASTATIN CALCIUM 40 MG TABLET PO (09:27)
[2023-05-08] MEDS: ASPIRIN 81 MG TABLET EC PO (09:27)
--- NOTE | 2023-05-08 12:35 | P.IMPN_ITS ---
Progress Note: A&P Assessment and plan (1) Hypoglycemia: Problem details: - Monitor blood sugars closely and adjust insulin while in the hospital - no evidence of acute infectious process, blood cultures currently NGTD, normal WBC, afebrile - Unclear if patient is going to be able to manage diabetes as an outpatient with cognitive impairment and both hyper and hypoglycemia being problems. Status: Acute (2) Normal pressure hydrocephalus: Problem details: - concern for this on CT 05/06, MRI obtained as well - per Neurology, more likely related to vascular dementia given chronic ataxia - Dr. Yadav of Neurology also recommends CTA of head/neck Status: Suspected (3) Poorly controlled diabetes mellitus: Problem details: - A1c of 12.3 on March 21 and now recurrent episodes of hypoglycemia Status: Acute (4) Ataxia: Problem details: - noted since previous CVA Status: Acute (5) Chronic anticoagulation: Problem details: - for history of PE Status: Acute (6) Cognitive impairment: Problem details: - patient and daughter both endorse some memory loss recently; MOCA in June of 2022 - per Dr. Yadav, history, imaging, symptoms most c/w vascular dementia Status: Acute Plan - per above - check CTA head/neck per Neurology - continue Warfarin for ppx Subjective Date Seen: 05/08/23 Interval history: Nava was admitted to the hospital last night for AMS after a fall at home with possible syncopal episode, in the setting of hypoglycemia. CT revealed some concerns for NPH, MRI obtained with the following formal radiology read: 1. Question punctate nonhemorrhagic acute left frontal call radiata infarct. No other acute intracranial abnormality is appreciated. 2. On a background of severe chronic sinus disease, there appears to be disproportionate ventricular caliber relative to volume loss. Findings can be seen in the setting of normal pressure hydrocephalus. This morning, Nava feels okay, notes discomfort in bilateral feet. No chest pain or headache, no other concerns for hospitalist team this morning. She is seeing Dr. Yadav of Neurology today given MRI findings. Exam Narrative: Exam Narrative: GEN: Alert and sitting up in bed, nontoxic in appearance, eating HEENT: EOMIs bilaterally, no scleral icterus CV: RRR, + blowing murmur heard best at LSB R: LCTA bilaterally without concerning wheezing, air movement adequate Skin: No concerning skin lesions or rashes on exposed skin Neuro: No focal deficits on limited exam Psych: Appropriate Const: Vital Signs, click to edit/add: Vital Signs - 24 hr 05/07/23 18:13 05/07/23 18:33 05/07/23 19:00 Temperature 95.7 F L Pulse Rate 49 L 50 L Pulse Rate [Pulse Oximeter] 52 L Respiratory Rate 18 14 16 Blood Pressure 150/59 H 173/70 H Blood Pressure [Le ft Radial Artery] Blood Pressure [Le ft Upper Arm] 164/76 H Pulse Oximetry 99 100 92 Oxygen Delivery Me thod Room Air 05/07/23 19:46 05/07/23 20:02 05/07/23 20:14 Temperature 96.3 F L 96.3 F L Pulse Rate 54 L 55 L Pulse Rate [Pulse Oximeter] 52 L Respiratory Rate 16 16 Blood Pressure 155/66 H Blood Pressure [Le ft Radial Artery] Blood Pressure [Le ft Upper Arm] 164/76 H Pulse Oximetry 98 95 Oxygen Delivery Me thod 05/07/23 22:34 05/07/23 23:00 05/07/23 23:00 Temperature 96 F L Pulse Rate 61 Pulse Rate [Pulse Oximeter] 56 L 56 L Respiratory Rate 16 16 Blood Pressure Blood Pressure [Le ft Radial Artery] 150/66 H Blood Pressure [Le ft Upper Arm] Pulse Oximetry 99 Oxygen Delivery Me thod Room Air 05/07/23 23:00 05/08/23 03:00 05/08/23 07:44 Temperature 96.3 F L 97.7 F Pulse Rate Pulse Rate [Pulse Oximeter] 63 65 68 Respiratory Rate 16 18 16 Blood Pressure Blood Pressure [Le ft Radial Artery] 153/70 H 142/64 H Blood Pressure [Le ft Upper Arm] Pulse Oximetry 99 99 Oxygen Delivery Me thod Room Air Room Air 05/08/23 08:02 05/08/23 09:53 05/08/23 11:46 Temperature 98 F 98.1 F Pulse Rate 69 Pulse Rate [Pulse Oximeter] 68 75 Respiratory Rate 16 16 Blood Pressure Blood Pressure [Le ft Radial Artery] 143/62 H 150/65 H Blood Pressure [Le ft Upper Arm] Pulse Oximetry 96 97 Oxygen Delivery Me thod Room Air Room Air Labs Labs: Laboratory Results - last 24 hr 05/07/23 05/07/23 05/07/23 18:30 18:45 21:03 WBC 18.42 H RBC 4.85 Hgb 13.7 Hct 43.6 MCV 90 MCH 28 MCHC 31 L RDW Coeff of Aditi 14.4 Plt Count 380 Neut % (Auto) 80.4 H Lymph % (Auto) 9.8 L [place] % (Auto) 6.4 Eos % (Auto) 2.8 Baso % (Auto) 0.4 Neut # (Auto) 14.80 H Lymph # (Auto) 1.80 [place] # (Auto) 1.20 H Eos # (Auto) 0.50 Baso # (Auto) 0.10 Abs Immat Gran (auto) 0.00 Imm/Tot Granulo (auto) 0.2 INR 2.01 H Sodium 140 Potassium 3.5 L Chloride 102 Carbon Dioxide 28 Anion Gap 10 BUN 20 Creatinine 0.6 Estimated Creat Clear 49.80 Estimated GFR 99 Glucose 83 Lactate 1.4 Calcium 9.8 Magnesium 2.2 Total Bilirubin 0.6 Direct Bilirubin 0.3 AST 39 H ALT 22 Alkaline Phosphatase 138 C-Reactive Protein Total Protein 8.0 Albumin 4.2 TSH 2.620 Urine Color Urine Appearance Urine pH Ur Specific [place] Urine Protein Urine Glucose (UA) Urine Ketones Urine Blood Urine Nitrite Urine Bilirubin Urine Urobilinogen Ur Leukocyte Esterase Urine RBC Urine WBC Ur Squamous Epith Cells Urine Bacteria SARS-CoV-2 (PCR) Negative SARS-CoV-2 Influenza Type A (PCR) Negative PCR FLU A Influenza Type B (PCR) Negative PCR FLU B RSV (PCR) Negative PCR RSV Lab Acknowledgement Test Added POC Troponin I 0.01 05/07/23 05/07/23 05/08/23 21:08 21:34 06:12 WBC 10.55 RBC 4.07 Hgb 11.7 L Hct 36.5 MCV 90 MCH 29 MCHC 32 RDW Coeff of [place] 14.3 Plt Count 390 Neut % (Auto) 74.2 H Lymph % (Auto) 15.4 L [place] % (Auto) 7.8 Eos % (Auto) 1.5 Baso % (Auto) 0.4 Neut # (Auto) 7.80 H Lymph # (Auto) 1.60 [place] # (Auto) 0.80 Eos # (Auto) 0.16 Baso # (Auto) 0.04 Abs Immat Gran (auto) 0.07 Imm/Tot Granulo (auto) 0.7 INR Sodium 134 L Potassium 4.0 Chloride 102 Carbon Dioxide 28 Anion Gap 4 L BUN 22 Creatinine 0.7 Estimated Creat Clear 47.79 Estimated GFR 95 Glucose 230 H Lactate Calcium 8.8 Magnesium Total Bilirubin Direct Bilirubin AST ALT Alkaline Phosphatase C-Reactive Protein < 0.5 L Total Protein Albumin TSH Urine Color Yellow Urine Appearance Clear Urine pH 7.0 Ur Specific [place] 1.025 Urine Protein 3+ A Urine Glucose (UA) Negative Urine Ketones Negative Urine Blood 1+ A Urine Nitrite Negative Urine Bilirubin Negative Urine Urobilinogen 0.2 Ur Leukocyte Esterase Negative Urine RBC 0-2 Urine WBC 0-2 Ur Squamous Epith Cells Few Urine Bacteria Moderate A SARS-CoV-2 (PCR) Influenza Type A (PCR) Influenza Type B (PCR) RSV (PCR) Lab Acknowledgement Test Added POC Troponin I
--- NOTE | 2023-05-08 12:50 | REH.OT ---
d/t schedule conflict w/ neurology consult, OT eval on hold until tomorrow.
--- NOTE | 2023-05-08 12:51 | CT_ITS ---
Patient: ANDREA CHACON Facility:?[facility] Patient ID:?[id number] Site Patient ID:?[id number]. Site :?[id number] Study:?CT-Neck Angio CTA GIANNA Cabello/MIRIAM 370 95CC-05/08/2023 1:50:07 PM Ordering Physician:GENEVIEVE Final Report: CT ANGIOGRAM NECK DATE: 05/08/2023 CLINICAL HISTORY: Patient with focal neurological deficits. TECHNIQUE: Standard helical CT image acquisition of the neck up to the skull base after bolus intravenous contrast enhancement. 2D and 3D MIP images for post-processing were performed and interpreted on an independent workstation and 3D images were permanently archived. COMPARISON: CT same day. FINDINGS: The origins of the great vessels from the aortic arch are patent. The origin of the right vertebral artery is patent. The origin of the left vertebral artery is patent. The common carotid arteries are patent. There is a mild (<50%) stenosis at the origin of the right internal carotid artery by NASCET criteria caused by non-calcified plaque with a >2mm residual lumen. There is a mild (<50%) stenosis at the origin of the left internal carotid artery by NASCET criteria caused by calcified plaque with a >2mm residual lumen. The rest of the cervical segments of the internal carotid arteries are patent up to the skull base. The left vertebral artery is dominant. The cervical segments of the vertebral arteries are patent up to the skull base. The visualized lung apices are unremarkable. The thyroid gland is unremarkable. The soft tissues of the neck are unremarkable. There are degenerative changes in the cervical spine. IMPRESSION: 1. Mild (<50%) stenosis at the origin of the right internal carotid artery by NASCET criteria caused by non-calcified plaque with a >2mm residual lumen. 2. Mild (<50%) stenosis at the origin of the left internal carotid artery by NASCET criteria caused by calcified plaque with a >2mm residual lumen. Please note that all CT scans at this facility use dose modulation, iterative reconstruction, and/or weight-based dosing when appropriate to reduce radiation dose to as low as reasonably achievable. Dictated by: Randolph Pierre MD @ 05/08/2023 13:57:29 Signed by:?Randolph Pierre MD @05/08/2023 1:57:29 PM (Electronic Signature)
--- NOTE | 2023-05-08 12:51 | CT_ITS ---
Patient: ANDREA CHACON Facility:?[facility] RIS Patient ID:?[id number] Site Patient ID:?[id number]. Site :?[id number] Study:?CT-Head Angio CTA HEAD W/MIRIAM 370 95CC-05/08/2023 1:50:13 PM Ordering Physician:BENJA Final Report: CT ANGIOGRAM HEAD DATE: 05/08/2023 CLINICAL HISTORY: Patient with focal neurological deficits. TECHNIQUE: Standard helical CT image acquisition through the intracranial circulation following intravenous administration of contrast material with bolus tracking. 2D and 3D MIP images for post-processing were performed and interpreted on an independent workstation and 3D images were permanently archived. COMPARISON: CT same day. FINDINGS: There is no proximal intracranial large vessel occlusion. There is no intracranial aneurysm. The right internal carotid artery is normal. The right middle cerebral artery and its branches are normal. The right anterior cerebral artery and its branches are normal. The left internal carotid artery is normal. The left middle cerebral artery and its branches are normal. The left anterior cerebral artery and its branches are normal. The anterior communicating artery is well visualized and appears normal. The right vertebral artery and PICA are normal. The left vertebral artery and PICA are normal. The left vertebral artery is dominant. The basilar artery is patent and appears normal. The right posterior cerebral artery is normal. The left posterior cerebral artery is normal. The visualized venous structures are patent. IMPRESSION: Patent proximal intracranial vasculature. Please note that all CT scans at this facility use dose modulation, iterative reconstruction, and/or weight-based dosing when appropriate to reduce radiation dose to as low as reasonably achievable. Dictated by: Randolph Pierre MD @ 05/08/2023 13:58:48 Signed by:?Randolph Pierre MD @05/08/2023 1:58:48 PM (Electronic Signature)
[2023-05-08] MEDS: WARFARIN 2 MG TABLET PO (17:05)
--- NOTE | 2023-05-08 19:07 | PC.NURSE ---
End of Shift: Patient pleasant and cooperative. Patient vitally stable, lungs clear, BS WNL, IV's intact and SL. Patient 1 assist/walker and currently denies pain but has reported discomfort in her toes. Patient tolerating diet, urinating, but no BM today. Patients blood sugars 194, 112, 87. Tele=NS w/ BBB. Patient has been up in chair all shift. Nina intact and draining clear, pale, yellow urine.
[2023-05-08] MEDS: AMLODIPINE 10 MG TABLET 5 MG PO (20:38)
[2023-05-08] MEDS: lisinopriL 20 MG TABLET 40 MG PO (20:39)
[2023-05-09 03:00] VITALS: BP 157/71; PULSE 65; RESP 20; TEMP 36.6; O2SAT 92
--- NOTE | 2023-05-09 06:07 | PC.NURSE ---
End of shift [id number]: Pt is A&O, afebrile and VSS overnight. She?s SBA with 2ww for ambulation. PT cleared her safe to be independent in her room once the Nina catheter is discontinued. Per nursing report, Nina catheter was placed d/t incontinence & retention. Urine was yellow beginning of the night but became more alicia, pink colored with small clots at the end of the shift. PIV in left AC and PIV in right FA both SL and C/D/I. Pt did not have a BM overnight so the stool sample for C. Diff r/o is still uncollected. TELE reads NSR with BBB. HS blood sugar 156; data analyst report writer gave 2 units Novolog and 15 units Levemir. Recheck @ 0200 was 128; scheduled Novolog was held. Pt calls appropriately and slept well in between cares. She is hoping to have the catheter removed today and get closer to discharging home. ?
[2023-05-09 06:29] LABS: Basophils Absolute Auto 0.04 K/uL (0.00-0.30); Basophils Percent Auto 0.4 % (0.0-3.0); Eosinophils Percent Auto 5.6 % (0.0-7.0); Hematocrit 35.8 % (33.0-51.0); Hemoglobin* 11.3 gm/dL (12.0-16.0); Immature Granulocytes Abs Auto 0.02 K/uL (0.00-0.30); Immature Granulocytes Pct Auto 0.2 %; Lymphocytes Absolute Auto 2.32 K/uL (0.90-2.90); Lymphocytes Percent Auto 21.6 % (20-44); Mean Corpuscular HGB Conc 32 gm/dL (32-36); Mean Corpuscular Hemoglobin 29 pg (26-34); Mean Corpuscular Volume 90 fL (80-100); Monocytes Percent Auto 11.1 % (0.0-11.0); Neutrophils Absolute Auto 6.56 K/uL (1.7-7.0); Neutrophils Percent Auto 61.1 % (42.0-72.0); Platelet Count* 358 K/uL (140-440); RDW Coefficient of Variation % 14.6 % (11.5-15.5); Red Blood Count 3.97 m/uL (4.00-5.20); White Blood Count* 10.73 K/uL (4.50-11.00)
[2023-05-09 06:31] LABS: Slide Review Reflex No
[2023-05-09 06:44] LABS: Chloride* 106 mmol/L (96-114)
[2023-05-09 06:45] LABS: Potassium* 3.8 mmol/L (3.6-5.1); Sodium* 138 mmol/L (135-149)
[2023-05-09 06:47] LABS: Cholesterol* 177 mg/dL (90-199); Creatinine* 0.8 mg/dL (0.5-1.5); Est. Creatinine Clearance* 47.79; Estimated Glomerular Filt Rate 81 ml/min
[2023-05-09 06:48] LABS: Alanine Aminotransferase* 16 U/L (4-35); Alkaline Phosphatase* 102 U/L (40-150); Anion Gap 3 mEq/L (7-15); Aspartate Amino Transferase* 22 U/L (12-35); Bilirubin Total* 0.6 mg/dL (0.1-1.5); Blood Urea Nitrogen* 22 mg/dL (7-30); Calcium* 9.2 mg/dL (8.4-10.6); Carbon Dioxide* 29 mmol/L (20-32); Glucose* 109 mg/dL (60-115); Total Protein* 5.9 g/dL (6.0-8.3); Triglycerides* 154 mg/dL (40-149)
[2023-05-09 06:49] LABS: HDL Cholesterol* 45 mg/dL (>=50); LDL Cholesterol Calculated 101 mg/dL (<100)
[2023-05-09 06:52] LABS: C Reactive Protein* < 0.5 mg/dL (0.5-1.0)
[2023-05-09 06:59] LABS: Prothrombin Time 21.1 Seconds
[2023-05-09] MEDS: ASPIRIN 81 MG TABLET EC PO (08:40)
[2023-05-09] MEDS: COENZYME Q10 100 MG CAPSULE PO (08:40)
[2023-05-09] MEDS: ATORVASTATIN CALCIUM 40 MG TABLET PO (08:41)
[2023-05-09] MEDS: carvediloL 6.25 MG TABLET PO (08:42)
[2023-05-09] MEDS: FUROSEMIDE 40 MG TABLET PO (08:43)
[2023-05-09] MEDS: CLOTRIMAZOLE 1 % CREAM 1 APPLIC TOPICAL (08:45)
[2023-05-09] MEDS: SODIUM CHLORIDE 0.9 % (FLUSH) 10 ML SYRINGE 5 ML IVF (08:46)
--- NOTE | 2023-05-09 09:04 | P.DS_ITS ---
DS: Providers Provider Date Seen: 05/09/23 Date of admission: 05/07/23 20:12 Primary care physician: Hilda Cheema MD Admitting Clinician: Julio White MD Consults: Naresh, KINDRA Attending Physician on discharge: Dinora Hubbard MD Date of Discharge: 05/09/23 DS: Diagnosis Discharge Diagnosis (1) Hypoglycemia: Status: Acute Problem details: - unclear source, likely iatrogenic; no evidence of acute infectious process, blood cultures currently NGTD, normal WBC, afebrile - discussed concerns with patient and daughter regarding cognition and concerns for self managing medications; daughter would be supportive of a higher level of care, Amparo and her are not ready at this time. They were willing to receive information regarding lifeline from our social work team - both daughter and patient aware that 09/09 supervision recommended upon discharge given hypoglycemia, cognitive impairment, comorbidities (2) Normal pressure hydrocephalus: Status: Suspected Problem details: - concern for this on CT 05/06, MRI obtained with similar findings - per Neurology, more likely related to vascular dementia given history and chronic ataxia - seen by Dr. Yadav of Neurology (3) Poorly controlled diabetes mellitus: Status: Acute Problem details: - A1c of 12.3 on March 21 and now recurrent episodes of hypoglycemia (4) Ataxia: Status: Acute Problem details: - noted since previous CVA (5) Chronic anticoagulation: Status: Acute Problem details: - for history of PE (6) Cognitive impairment: Status: Acute Problem details: - patient and daughter both endorse some memory loss recently; MOCA 21/30 in June of 2022 - per Dr. Yadav, history, imaging, symptoms most c/w vascular dementia - PCP, Dr. Cheema, also aware. She has set up formal neuropsych testing for Amparo as an outpatient - higher level of care vs more help at home recommended upon discharge. Patient and daughter aware DS: Summary Hospital Course Hospital Course: Amparo was admitted to the hospital on 05/06 for hypoglycemia of unknown cause, in addition to AMS. Cultures remain negative and she had no evidence of acute illness, suspect accidental overuse of insulin as source. During stay, BG ranged from 75 (fasting) - 275. BG in last 24 hours of stay ranged from 87-194. Patient had no symptoms of hyper or hypoglycemia. Patient noted to have findings of NPH on her head CT, MRI obtained and revealed the same, in addition to a punctate lesion possibly representing a tiny CVA in her left frontal call radiata. As a result, patient was seen by Dr. Yadav of Stroke Neurology, who noted that patient is on appropriate therapy with 81mg ASA, statin, Warfarin, and has minimal, if any deficits from this small lesion. Dr. Yadav did not feel that patient had true NPH given timeline of symptoms (ataxia present since CVA 2 years ago, incontinence chronic); and felt that constellation of symptoms and imaging represented vascular dementia. Amparo has f/u schedule with her PCP and Neuropsych for followup. She is declining a higher level of care upon discharge; both she and daughter aware of cognitive impairment and recommendation for 09/09 supervision. Comorbidities with details discussed further above. Amparo was medically appropriate to d/c home on 05/08, daughter Oscar updated by phone and questions answered. Status at Discharge Functional status at discharge: independent ambulation Overall status at discharge: patient is progressing back to baseline Time Spent with Patient Time attestation: Total time spent providing and/or coordinating discharge services: Time spent: Greater than 30 minutes Specific discharge activities: medication reconciliation, specialty consultation Exam Narrative: Exam Narrative: GEN: Alert and answering questions appropriately, nontoxic HEENT: EOMIs bilaterally, no scleral icterus CV: RRR, blowing systolic murmur heard best at LSB R: LCTA bilaterally without concerning wheezing, air movement adequate Ext: no LE edema Skin: Hyperpigmentation of lateral malleoli BLE, chronic and unchanged, no open skin wounds Neuro: No focal deficits on limited exam, no tremor, gait no observed today Psych: Appropriate, acknowledges memory impairment Const: Vital Signs, click to edit/add: Vital Signs - 24 hr 05/08/23 09:53 05/08/23 11:46 05/08/23 15:00 Temperature 98.1 F 98.4 F Pulse Rate 69 Pulse Rate [Pulse Oximeter] 75 70 Respiratory Rate 16 14 Blood Pressure [Le ft Radial Artery] 150/65 H Blood Pressure [Ri ght Arm] 152/66 H Pulse Oximetry 97 99 Oxygen Delivery Me thod Room Air Room Air 05/08/23 15:00 05/08/23 17:43 05/08/23 19:00 Temperature 98.1 F Pulse Rate 67 Pulse Rate [Pulse Oximeter] 70 69 Respiratory Rate 14 16 Blood Pressure [Le ft Radial Artery] Blood Pressure [Ri ght Arm] 163/77 H Pulse Oximetry 96 Oxygen Delivery Me thod Room Air 05/08/23 23:00 05/08/23 23:00 05/08/23 23:00 Temperature 98.4 F Pulse Rate 65 Pulse Rate [Pulse Oximeter] 76 76 Respiratory Rate 16 16 Blood Pressure [Le ft Radial Artery] Blood Pressure [Ri ght Arm] 145/62 H Pulse Oximetry 96 Oxygen Delivery Me thod Room Air 05/09/23 03:00 Temperature 98 F Pulse Rate Pulse Rate [Pulse Oximeter] 65 Respiratory Rate 20 Blood Pressure [Le ft Radial Artery] Blood Pressure [Ri ght Arm] 157/71 H Pulse Oximetry 92 Oxygen Delivery Me thod Room Air DS: Data Data Completed and Pending Labs on day of discharge: Labs from last 24 hours 05/09/23 06:15 WBC 10.73 RBC 3.97 L Hgb 11.3 L Hct 35.8 MCV 90 MCH 29 MCHC 32 RDW Coeff of Aditi 14.6 Plt Count 358 Neut % (Auto) 61.1 Lymph % (Auto) 21.6 [place] % (Auto) 11.1 H Eos % (Auto) 5.6 Baso % (Auto) 0.4 Neut # (Auto) 6.56 Lymph # (Auto) 2.32 [place] # (Auto) 1.20 H Eos # (Auto) 0.60 H Baso # (Auto) 0.04 Abs Immat Gran (auto) 0.02 Imm/Tot Granulo (auto) 0.2 INR 1.70 H Sodium 138 Potassium 3.8 Chloride 106 Carbon Dioxide 29 Anion Gap 3 L BUN 22 Creatinine 0.8 Estimated Creat Clear 47.79 Estimated GFR 81 Glucose 109 Calcium 9.2 Total Bilirubin 0.6 AST 22 ALT 16 Alkaline Phosphatase 102 C-Reactive Protein < 0.5 L Total Protein 5.9 L Albumin 3.0 L Triglycerides 154 H Cholesterol 177 LDL Cholesterol, Calc 101 H HDL Cholesterol 45 L Preliminary micro results at discharge 05/07/23 18:46 Blood Culture - Preliminary Blood NO GROWTH AFTER 24 HOURS 05/07/23 18:56 Blood Culture - Preliminary Blood NO GROWTH AFTER 24 HOURS Discharge Plan Discharge Disposition: Home, Self-Care Date of Admission: 05/07/23 20:12 Attending Provider on Discharge: Dinora Hubbard Primary Care Provider: Hilda Cheema Condition: Improved Anticipated Discharge Date/Time: 05/09/23 08:56 Discharge Medications: Continued carvedilol 6.25 mg tablet 6.25 mg PO BID warfarin 2 mg tablet 2 mg PO QPM Rx Instructions: 2 mg on Mondays, and 3mg all other days lisinopril 20 mg tablet 20 mg PO QDAY amlodipine 10 mg tablet 5 mg PO QDAY furosemide 40 mg tablet 40 mg PO DAILY cholecalciferol (vitamin D3) 25 mcg (1,000 unit) capsule 25 mcg PO DAILY coenzyme Q10 100 mg capsule 100 mg PO DAILY insulin aspart U-100 [Novolog FlexPen U-100 Insulin] 100 unit/mL (3 mL) Insulin Pen 6 unit subcut TIDWM Qty: 15 0RF Patient Comments: per sliding scale aspirin [Adult Aspirin Regimen] 81 mg tablet,delayed release (DR/EC) 81 mg PO DAILY atorvastatin 40 mg tablet 40 mg PO DAILY Levemir FlexPen 100 unit/mL (3 mL) Insulin Pen 30 unit subcut HS Discontinued insulin glargine [Lantus Solostar U-100 Insulin] 100 unit/mL (3 mL) insulin pen subcut Discharge Orders: Discharge Order (Routine); Ordered 05/09/23 Ordered By: Dinora Hubbard Patient Education: Hypoglycemia in a Person with Diabetes (DC) Additional Instructions: Take SIX units of Novolog with meals to decrease risk of lower blood sugars. Continue your Levemir (30 U at night). Check your sugars with any symptoms or concerns. See Dr. Cheema as scheduled and keep appointments with specialists. It's a good idea to have someone at home with you all of the time given memory issues and concern for insulin use. Activity Level: No Restrictions and Activity as Tolerated Discharge Diet: Diabetic Follow Up Appointments: Candace Cornejo MD [Staff Physician] - 05/20/23 11:30 am ([facility] for follow up ) Hilda Cheema MD [Primary Care Provider] - () Forms: [employer] Info Instructions
[2023-05-09 09:13] VITALS: BP 169/73; PULSE 66; RESP 16; TEMP 36.7; O2SAT 96
[2023-05-09 09:22] VITALS: PULSE 62
--- NOTE | 2023-05-09 09:47 | PC.SOCIAL ---
Discharge planning: Met with pt and provided her with resources for safety alert devices per her request. Pt was thankful for the information. Pt had no other questions or concerns. Social work to follow-up as needed.
--- NOTE | 2023-05-09 12:12 | PC.NURSE ---
Discharge: Patient pleasant and cooperative. Up with SBA and walker. Nina removed this morning and has voided x2 denies pain with void. Vitals stable and WNL. IV removed x2. Discharge instructions given, discussed medication changes and follow up. Patient discharged @ 1209 via wheelchair, family picked up at front entrance, discharged to home.
== END 2023-05-09 12:09 | disposition home or self-care (01) ==
LOC: ED 19:11 → MEDSURG 20:13
PROVIDERS: Family Medicine; Admitting Provider Family Medicine; Emergency Provider Emergency Medicine Emergency Medical Services; PCP Family Medicine; Visit Provider Family Medicine
DX: E16.2 Hypoglycemia, unspecified (principal); D72.829 Elevated white blood cell count, unspecified; R19.7 Diarrhea, unspecified; R11.10 Vomiting, unspecified; R27.0 Ataxia, unspecified; R41.89 Other symptoms and signs involving cognitive functions and awareness; R41.82 Altered mental status, unspecified; G91.2 (Idiopathic) normal pressure hydrocephalus; R32 Unspecified urinary incontinence; E11.65 Type 2 diabetes mellitus with hyperglycemia; E78.5 Hyperlipidemia, unspecified; I10 Essential (primary) hypertension; M25.461 Effusion, right knee; B35.3 Tinea pedis; R11.0 Nausea; W19.XXXA Unspecified fall, initial encounter; R55 Syncope and collapse; Z91.148 Patient's other noncompliance with medication regimen for other reason; Z79.82 Long term (current) use of aspirin; Z79.01 Long term (current) use of anticoagulants; Z79.4 Long term (current) use of insulin; Z86.718 Personal history of other venous thrombosis and embolism; Z86.19 Personal history of other infectious and parasitic diseases; Z87.891 Personal history of nicotine dependence; Z90.410 Acquired total absence of pancreas; Z90.49 Acquired absence of other specified parts of digestive tract; Z90.3 Acquired absence of stomach [part of]; Z90.81 Acquired absence of spleen; Z98.890 Other specified postprocedural states
CPT/HCPCS: 36415; 51701; 70450; 70496; 70498; 70551; 71045; 80048; 80053; 80061; 80076; 81001; 81003; 82962; 83605; 83735; 84443; 84484; 85025; 85610; 86140; 87040; 87045; 87046; 87086; 87427; 87493; 87631; 93005; 96365; 96372; 96375; 96376; 97112; 97116; 97161; 99205; 99284; 99291; G0378; G0426; A9270; J2405; J7042; Q9967

== ENCOUNTER 2023-05-23 13:41 | Outpatient (CLI) | payer OTHER, SELFPAY | END 2023-05-23 13:42 | disposition home or self-care (01) | LOC: AMB 05-29 06:26 | PROVIDERS: PCP Family Medicine; Visit Provider Student in an Organized Health Care Education/Training Program | DX: R53.1 Weakness (principal) | CPT/HCPCS: A0998 ==

== ENCOUNTER 2023-07-18 17:25 | Outpatient (CLI) | payer OTHER, SELFPAY | END 2023-07-18 17:26 | disposition home or self-care (01) | LOC: AMB 07-28 16:23 | PROVIDERS: PCP Family Medicine; Visit Provider Emergency Medicine Emergency Medical Services | DX: R55 Syncope and collapse (principal) | CPT/HCPCS: A0425; A0427 ==

== ENCOUNTER 2023-07-18 18:11 | Emergency (ER) | payer OTHER, SELFPAY ==
[2023-07-18] VITALS (11 sets, daily range): BP systolic 161–188; BP diastolic 66–82; PULSE 59–66; RESP 16; TEMP 36.1; O2SAT 96–100; BMI 31.6
--- NOTE | 2023-07-18 18:50 | ED.GENADULT ---
HPI - General Adult General Date Seen: 07/18/23 <Abbie Louise MD - Last Filed: 07/21/23 09:25> Chief complaint: Diabetic Related Problem <Abbie Louise MD - Last Filed: 07/21/23 09:25> Stated complaint: Hypoglycemia <Abbie Louise MD - Last Filed: 07/21/23 09:25> Time Seen by Provider: 07/18/23 18:18 <Abbie Louise MD - Last Filed: 07/21/23 09:25> Source: patient, family, EMS, RN notes reviewed and old records reviewed <Abbie Louise MD - Last Filed: 07/21/23 09:25> Mode of arrival: EMS <Abbie Louise MD - Last Filed: 07/21/23 09:25> Limitations: no limitations <Abbie Louise MD - Last Filed: 07/21/23 09:25> History of Present Illness HPI narrative: Patient is a 68-year-old woman brought in by EMS after hypoglycemic episode at home. Her significant other apparently called her daughter 1st when she was slumped over, blood sugar was 47, daughter told him to call 911. They were able to get her to eat some food and paramedics got a blood sugar of 148. She was awake at that time. She has been having problems with hypoglycemic spells recently. Has been seen here a couple of times, was admitted to the hospital in June of last year, at that time discharged to [facility], admitted in April of this year with hypoglycemia, [facility] recommended but patient and her declined. Her daughter, who does not live with her at this time, says that as long as they have their current dog they are not interested in different living situation. Patient does endorse cognitive difficulties, difficulty remembering her medications. Based on the discharge note from her April hospital stay, it looks as if they had recommended switching to 6 units of insulin 3 times daily. Patient indicates to me she has been using 12 units of short-acting insulin 3 times daily, no one seems to know whether this was changed intentionally back up to 12 her whether the patient is simply taking 12 units instead of 6 as recommended in April. She is not certain if she ate after her 1:00 p.m. dose. In any case, another hypoglycemic event at home today, she says she was otherwise having a good day, denies symptoms such as fevers, chills, nausea vomiting, black or bloody stools, urinary symptoms, chest pain, difficulty breathing cough etcetera. No reported fall or head injury today. There was a question in April of normal pressure hydrocephalus but Neurology felt this was unlikely based on chronicity of symptoms. Vascular dementia favored. Patient says she is currently being worked up for her cognitive problems. Of note, she had no hyper or hypoglycemia during her hospital stay in April. <Abbie Louise MD - Last Filed: 07/21/23 09:25> Related Data Home medications: Home Medications ?Medication ?Instructions ?Recorded ?Confirmed amlodipine 10 mg tablet 5 mg PO QDAY 01/24/22 05/07/23 carvedilol 6.25 mg tablet 6.25 mg PO BID 01/24/22 05/07/23 furosemide 40 mg tablet 40 mg PO DAILY 01/24/22 05/07/23 lisinopril 20 mg tablet 20 mg PO QDAY 01/24/22 05/07/23 warfarin 2 mg tablet 2 mg PO QPM 01/24/22 05/08/23 aspirin 81 mg tablet,delayed 81 mg PO DAILY 02/25/22 05/07/23 release (Adult Aspirin Regimen) atorvastatin 40 mg tablet 40 mg PO DAILY 02/25/22 05/07/23 cholecalciferol (vitamin D3) 25 25 mcg PO DAILY 06/17/22 05/07/23 mcg (1,000 unit) capsule coenzyme Q10 100 mg capsule 100 mg PO DAILY 06/17/22 05/07/23 insulin detemir U-100 100 unit/mL 30 unit subcut HS 05/08/23 05/08/23 (3 mL) subcutaneous pen (Levemir FlexPen) Previous Rx's ?Medication ?Instructions ?Recorded insulin aspart U-100 100 unit/mL 6 unit (0.06 mL) subcut TIDWM #15 06/19/22 (3 mL) subcutaneous pen (Novolog mL FlexPen U-100 Insulin aspart) <Abbie Louise MD - Last Filed: 07/21/23 09:25> Allergies/adverse reactions: Allergies Allergy/AdvReac Type Severity Reaction Status Date / Time phytonadione (vitamin K1) Allergy Severe Anaphylaxis Verified 05/07/23 18:23 enoxaparin [From Lovenox] Allergy Diarrhea Verified 05/07/23 18:23 menaquinone-7 (vitamin K2) Allergy Anaphylaxis Verified 05/07/23 18:23 [vitamin K2] <Abbie Louise MD - Last Filed: 07/21/23 09:25> Review of Systems Status of ROS: Reports: 10 or more systems reviewed and unremarkable except as noted in History and below <Abbie Louise MD - Last Filed: 07/21/23 09:25> [facility] Medical History: Medical History Ataxia ?R27.0 - Ataxia, unspecified (ICD-10) Poorly controlled diabetes mellitus ?E11.65 - Type 2 diabetes mellitus with hyperglycemia (ICD-10) Cognitive impairment ?R41.89 - Other symptoms and signs involving cognitive functions and awareness (ICD-10) Falls ?W19.XXXA - Unspecified fall, initial encounter (ICD-10) Sprain of foot, left ?S93.602A - Unspecified sprain of left foot, initial encounter (ICD-10) Injury of knee, right ?S89.91XA - Unspecified injury of right lower leg, initial encounter (ICD-10) Frailty ?R54 - Age-related physical debility (ICD-10) Osteoarthritis of right knee ?M17.11 - Unilateral primary osteoarthritis, right knee (ICD-10) Chronic anticoagulation ?Z79.01 - supervisor intermediates (current) use of anticoagulants (ICD-10) Anemia ?D64.9 - Anemia, unspecified (ICD-10) Medication noncompliance due to cognitive impairment ?R41.9 - Unspecified symptoms and signs involving cognitive functions and awareness (ICD-10) ?Z91.148 - Patient's other noncompliance with medication regimen for other reason (ICD-10) Heart failure ?I50.9 - Heart failure, unspecified (ICD-10) History of DVT (deep vein thrombosis) ?Z86.718 - Personal history of other venous thrombosis and embolism (ICD-10) Endocarditis ?I38 - Endocarditis, valve unspecified (ICD-10) Hyperlipidemia ?E78.5 - Hyperlipidemia, unspecified (ICD-10) Hypertension ?I10 - Essential (primary) hypertension (ICD-10) Diabetic polyneuropathy ?E11.42 - Type 2 diabetes mellitus with diabetic polyneuropathy (ICD-10) Diabetes ?E11.9 - Type 2 diabetes mellitus without complications (ICD-10) Anticoagulated with warfarin ?Z79.01 - supervisor intermediates (current) use of anticoagulants (ICD-10) Pleural effusion on left ?J90 - Pleural effusion, not elsewhere classified (ICD-10) Multiple subsegmental pulmonary emboli without acute cor pulmonale ?I26.94 - Multiple subsegmental pulmonary emboli without acute cor pulmonale (ICD-10) History of Clostridioides difficile infection ?Z86.19 - Personal history of other infectious and parasitic diseases (ICD-10) Enteritis due to Clostridium difficile ?A04.72 - Enterocolitis due to Clostridium difficile, not specified as recurrent (ICD-10) Congestive heart failure ?I50.9 - Heart failure, unspecified (ICD-10) Cellulitis of right lower extremity ?L03.115 - Cellulitis of right lower limb (ICD-10) Acute kidney injury ?N17.9 - Acute kidney failure, unspecified (ICD-10) <Abbie Louise MD - Last Filed: 07/21/23 09:25> Surgical History: Surgical History 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) History of partial colectomy ?Z90.49 - Acquired absence of other specified parts of digestive tract (ICD-10) History of partial gastrectomy ?Z90.3 - Acquired absence of stomach [part of] (ICD-10) H/O splenectomy ?Z90.81 - Acquired absence of spleen (ICD-10) History of open heart surgery (05/17/21) ?Z98.890 - Other specified postprocedural states (ICD-10) History of appendectomy ?Z90.49 - Acquired absence of other specified parts of digestive tract (ICD-10) <Abbie Louise MD - Last Filed: 07/21/23 09:25> Family History: Family History Mother Colon cancer Diabetes Cirrhosis Brother Colon cancer Father Stroke High blood pressure Heart disease <Abbie Louise MD - Last Filed: 07/21/23 09:25> Social History: Social History Narrative: She lives at home with her daughter, Oscar, and her . She reports they live in a small home. She primarily walks around the house holding onto furniture. She has a cane that she occasionally uses, especially when she goes out. [place] on [address]. Her daughter sets up her medications but notes that she does not know if her mom is reliably taking her medications. Daughter specifically notes that her mom has probably been forgetting her insulin at times and her warfarin has been missed at least a couple times in the past week or so. What is your current living situation?: I presently have a place to live Problems where you live: no known problems Problems where you live details: NA In the past 12 months, utilities in danger of being shut off: no In past 12 months, lack of transportation kept you from medical appts, meetings, work, or getting things needed for daily living: no In the past 12 mos, have been you worried that your food would run out before you had money to buy more?: never true In the past 12 mos, the food you bought just didn't last and you didn't have money to buy more?: never true Are you following a diet prescribed by a doctor: Yes (diabetic, heart healthy) Highest level of school completed/degree received: Associate degree: occupational, technical, vocational program Smoking Status: Former smoker Do you use any of these nicotine containing products: None Second hand tobacco smoke exposure: No How often do you have a drink containing alcohol: never How often do you have six or more drinks on one occasion: Never AUDIT-C Alcohol total score: 0 Non-prescribed substance use: denies use Caffeine: No How often does anyone, including family, friends and others, physically hurt you: never How often does anyone, including family, friends and others, insult or talk down to you: never How often does anyone, including family, friends and others, threaten you with harm: never How often does anyone, including family, friends and others, scream or curse at you: never Gender Identity: female service: No <Abbie Louise MD - Last Filed: 07/21/23 09:25> Exam Narrative: Exam Narrative: Vital signs as noted above. In general, an alert, well-appearing patient. Conversant, pleasant. Head: Normocephalic, atraumatic. Eyes: Pupils are equal reactive. Extraocular movements are full. Conjunctivae are normal. ENT: Mucous membranes are moist. Throat is normal. Neck: Supple without lymphadenopathy. Heart: Regular rate and rhythm. No murmur or rub. Lungs: Clear bilaterally. No increased work of breathing, crackles or wheezes. Abdomen: Soft and nontender. Delete Extremities: Well perfused. No edema. No calf tenderness. Pulses intact. Some venous stasis changes, right greater than left. No erythema or warmth. Neurologic: Patient is alert and oriented to person and place. Speech is fluent. Face is symmetric. Moves all extremities equally. Affect: Normal. Skin: Warm and dry. Well perfused. <Abbie Louise MD - Last Filed: 07/21/23 09:25> Const: Vital Signs, click to edit/add: Vital Signs - 24 hr 07/18/23 18:24 07/18/23 19:34 Temperature 96.9 F L Pulse Rate [Pulse Oximeter] 59 L Respiratory Rate 16 Blood Pressure [Ri ght Upper Arm] 188/82 H Pulse Oximetry 99 98 Oxygen Delivery Me thod Room Air <Abbie Louise MD - Last Filed: 07/21/23 09:25> Vital Signs, click to edit/add: Vital Signs - 24 hr 07/18/23 18:24 07/18/23 19:34 Temperature 96.9 F L Pulse Rate [Pulse Oximeter] 59 L Respiratory Rate 16 Blood Pressure [Ri ght Upper Arm] 188/82 H Pulse Oximetry 99 98 Oxygen Delivery Me thod Room Air <Lucian Cornejo MD - Last Filed: 07/18/23 21:21> Documenting provider has reviewed patient's vital signs: yes <Abbie Louise MD - Last Filed: 07/21/23 09:25> Course Course ED Course: Patient's blood sugar here was 240. I checked labs, white blood cell count is elevated at 16.7, but no clinical signs or symptoms suggesting infection. She is afebrile. This may be related to demargination. In talking with her daughter and the patient further, it sounds as if she does not really remember whether any changes were made or recommended when she was here in April. She further says that she has a hard time remembering whether not she has given herself her insulin, which may be leading to her doubling up. Her other labs showed normal electrolytes, normal kidney function, a lactate of 1.5, LFTs with a minimally elevated AST and otherwise normal, CRP less than 0.5. Lipase 63, TSH and UA are pending at this time. Her daughter says that they have all agreed that while there current dog, who was 15, is still live, that they are not going to make any changes in terms of her living arrangement. I suggested that it would be safest in the meantime if someone else manages her insulin for her. At a very minimum, she needs to have the correct dosage written down by where she gives herself her insulin, and she needs to have a system in place to help her remember whether not she has he taken her dose. I did reprint her discharge instructions from her hospital stay in April with the dosages recommended at that time. Her daughter thinks it is unlikely that any changes were made by Dr. Cheema as they generally would call her with that sort of information. Dr. Cornejo will follow up on final labs, UA and TSH, assuming those are normal patient can be discharged home, primary care follow-up in the next week for recheck, return for new or worsening symptoms. <Abbie Louise MD - Last Filed: 07/21/23 09:25> Vital Signs Vital signs: Initial Vital Signs Temperature 96.9 F L 07/18/23 18:24 Temperature Source Temporal Artery Scan 07/18/23 18:24 Pulse Rate 59 L 07/18/23 18:24 Respiratory Rate 16 07/18/23 18:24 Blood Pressure 188/82 H 07/18/23 18:24 Blood Pressure Mean 117 H 07/18/23 18:24 Pulse Oximetry 99 07/18/23 18:24 Oxygen Delivery Method Room Air 07/18/23 18:24 Vital Signs Temperature 96.9 F L 07/18/23 18:24 Pulse Rate 59 L 07/18/23 18:24 Respiratory Rate 16 07/18/23 18:24 Blood Pressure 188/82 H 07/18/23 18:24 Pulse Oximetry 99 07/18/23 18:24 Oxygen Delivery Method Room Air 07/18/23 18:24 Temperature 96.9 F L 07/18/23 18:24 Pulse Rate 65 07/18/23 21:30 Respiratory Rate 16 07/18/23 18:24 Blood Pressure 161/71 H 07/18/23 21:03 Pulse Oximetry 97 07/18/23 21:30 Oxygen Delivery Method Room Air 07/18/23 18:24 <Abbie Louise MD - Last Filed: 07/21/23 09:25> Initial Vital Signs Temperature 96.9 F L 07/18/23 18:24 Temperature Source Temporal Artery Scan 07/18/23 18:24 Pulse Rate 59 L 07/18/23 18:24 Respiratory Rate 16 07/18/23 18:24 Blood Pressure 188/82 H 07/18/23 18:24 Blood Pressure Mean 117 H 07/18/23 18:24 Pulse Oximetry 99 07/18/23 18:24 Oxygen Delivery Method Room Air 07/18/23 18:24 Vital Signs Temperature 96.9 F L 07/18/23 18:24 Pulse Rate 59 L 07/18/23 18:24 Respiratory Rate 16 07/18/23 18:24 Blood Pressure 188/82 H 07/18/23 18:24 Pulse Oximetry 99 07/18/23 18:24 Oxygen Delivery Method Room Air 07/18/23 18:24 Temperature 96.9 F L 07/18/23 18:24 Pulse Rate 65 07/18/23 21:30 Respiratory Rate 16 07/18/23 18:24 Blood Pressure 161/71 H 07/18/23 21:03 Pulse Oximetry 97 07/18/23 21:30 Oxygen Delivery Method Room Air 07/18/23 18:24 <Lucian Cornejo MD - Last Filed: 07/18/23 21:21> Medical Decision Making MDM Narrative Medical decision making narrative: Urinalysis returns with no evidence of infection. Also thyroid stimulating hormone returns in normal range. This patient is okay to be discharged with these current plans outlined by Dr. Louise. Dr. Michael Cornejo <Lucian Cornejo MD - Last Filed: 07/18/23 21:21> Lab Data Labs: Lab Results 07/18/23 07/18/23 Range/Units 19:05 20:50 WBC 16.70 H (4.50-11.00) K/uL RBC 5.09 (4.00-5.20) m/uL Hgb 14.7 (12.0-16.0) gm/dL Hct 45.7 (33.0-51.0) % MCV 90 (80-100) fL MCH 29 (26-34) pg MCHC 32 (32-36) gm/dL RDW Coeff of Aditi 13.3 (11.5-15.5) % Plt Count 360 (140-440) K/uL Neut % (Auto) 80.9 H (42.0-72.0) % Lymph % (Auto) 11.4 L (20-44) % [place] % (Auto) 5.1 (0.0-11.0) % Eos % (Auto) 2.1 (0.0-7.0) % Baso % (Auto) 0.3 (0.0-3.0) % Neut # (Auto) 13.50 H (1.7-7.0) K/uL Lymph # (Auto) 1.90 (0.90-2.90) K/uL [place] # (Auto) 0.90 (0.00-0.90) K/UL Eos # (Auto) 0.40 (0.00-0.50) K/uL Baso # (Auto) 0.10 (0.00-0.30) K/uL Abs Immat Gran (auto) 0.00 (0.00-0.30) K/uL Imm/Tot Granulo (auto) 0.2 % Sodium 136 (135-149) mmol/L Potassium 3.9 (3.6-5.1) mmol/L Chloride 98 (96-114) mmol/L Carbon Dioxide 31 (20-32) mmol/L Anion Gap 7 (7-15) mEq/L BUN 30 (7-30) mg/dL Creatinine 0.8 (0.5-1.5) mg/dL Estimated Creat Clear 49.12 Estimated GFR 81 ml/min Glucose 230 H (60-115) mg/dL Lactate 1.5 (0.5-1.9) mmol/L Calcium 9.2 (8.4-10.6) mg/dL Total Bilirubin 0.9 (0.1-1.5) mg/dL Direct Bilirubin 0.4 (0.0-0.5) mg/dL AST 45 H (12-35) U/L ALT 29 (4-35) U/L Alkaline Phosphatase 141 (40-150) U/L C-Reactive Protein < 0.5 L (0.5-1.0) mg/dL Total Protein 8.1 (6.0-8.3) g/dL Albumin 4.4 (3.3-5.0) g/dL Lipase 63 (23-300) U/L TSH 2.170 (0.270-4.200) uIU/mL Urine Color Yellow (Yellow) Urine Appearance Slightly Cloudy A (Clear) Urine pH 6.0 (5.0-8.5) Ur Specific [place] 1.025 (1.000-1.030) Urine Protein 3+ A (Negative) Urine Glucose (UA) 2+ A (Negative) Urine Ketones Negative (Negative) Urine Blood 1+ A (Negative) Urine Nitrite Negative (Negative) Urine Bilirubin Negative (Negative) Urine Urobilinogen 0.2 (0.2-1.0) Ur Leukocyte Esterase Negative (Negative) Urine RBC 2-5 A (0-2) Urine WBC 0-2 (0-5) Ur Squamous Epith Cells Few (None-Few) Urine Bacteria Many A (None) <Abbie Louise MD - Last Filed: 07/21/23 09:25> Lab Results 07/18/23 07/18/23 Range/Units 19:05 20:50 WBC 16.70 H (4.50-11.00) K/uL RBC 5.09 (4.00-5.20) m/uL Hgb 14.7 (12.0-16.0) gm/dL Hct 45.7 (33.0-51.0) % MCV 90 (80-100) fL MCH 29 (26-34) pg MCHC 32 (32-36) gm/dL RDW Coeff of Aditi 13.3 (11.5-15.5) % Plt Count 360 (140-440) K/uL Neut % (Auto) 80.9 H (42.0-72.0) % Lymph % (Auto) 11.4 L (20-44) % [place] % (Auto) 5.1 (0.0-11.0) % Eos % (Auto) 2.1 (0.0-7.0) % Baso % (Auto) 0.3 (0.0-3.0) % Neut # (Auto) 13.50 H (1.7-7.0) K/uL Lymph # (Auto) 1.90 (0.90-2.90) K/uL [place] # (Auto) 0.90 (0.00-0.90) K/UL Eos # (Auto) 0.40 (0.00-0.50) K/uL Baso # (Auto) 0.10 (0.00-0.30) K/uL Abs Immat Gran (auto) 0.00 (0.00-0.30) K/uL Imm/Tot Granulo (auto) 0.2 % Sodium 136 (135-149) mmol/L Potassium 3.9 (3.6-5.1) mmol/L Chloride 98 (96-114) mmol/L Carbon Dioxide 31 (20-32) mmol/L Anion Gap 7 (7-15) mEq/L BUN 30 (7-30) mg/dL Creatinine 0.8 (0.5-1.5) mg/dL Estimated Creat Clear 49.12 Estimated GFR 81 ml/min Glucose 230 H (60-115) mg/dL Lactate 1.5 (0.5-1.9) mmol/L Calcium 9.2 (8.4-10.6) mg/dL Total Bilirubin 0.9 (0.1-1.5) mg/dL Direct Bilirubin 0.4 (0.0-0.5) mg/dL AST 45 H (12-35) U/L ALT 29 (4-35) U/L Alkaline Phosphatase 141 (40-150) U/L C-Reactive Protein < 0.5 L (0.5-1.0) mg/dL Total Protein 8.1 (6.0-8.3) g/dL Albumin 4.4 (3.3-5.0) g/dL Lipase 63 (23-300) U/L TSH 2.170 (0.270-4.200) uIU/mL Urine Color Yellow (Yellow) Urine Appearance Slightly Cloudy A (Clear) Urine pH 6.0 (5.0-8.5) Ur Specific [place] 1.025 (1.000-1.030) Urine Protein 3+ A (Negative) Urine Glucose (UA) 2+ A (Negative) Urine Ketones Negative (Negative) Urine Blood 1+ A (Negative) Urine Nitrite Negative (Negative) Urine Bilirubin Negative (Negative) Urine Urobilinogen 0.2 (0.2-1.0) Ur Leukocyte Esterase Negative (Negative) Urine RBC 2-5 A (0-2) Urine WBC 0-2 (0-5) Ur Squamous Epith Cells Few (None-Few) Urine Bacteria Many A (None) <Lucian Cornejo MD - Last Filed: 07/18/23 21:21> Discharge Plan Discharge Clinical Impression: Hypoglycemia associated with diabetes <Abbie Louise MD - Last Filed: 07/21/23 09:25> Patient Disposition: Home, Self-Care <Abbie Louise MD - Last Filed: 07/21/23 09:25> Condition: Improved <Abbie Louise MD - Last Filed: 07/21/23 09:25> Instructions: Hypoglycemia in a Person with Diabetes (DC) <Abbie Louise MD - Last Filed: 07/21/23 09:25> Additional Instructions: As of discharge from hospital at the end of April, these were the discharge instructions regarding your insulin dosing: Additional Instructions: Take SIX units of Novolog with meals to decrease risk of lower blood sugars. Continue your Levemir (30 U at night). Check your sugars with any symptoms or concerns. See Dr. Cheema as scheduled and keep appointments with specialists. It's a good idea to have someone at home with you all of the time given memory issues and concern for insulin use. It seems as though some memory problems are likely contributing to problems with your blood sugar control at home. It would be safest for someone else to manage your insulin and to make sure that you eat after insulin is given. At a minimum, make sure the correct dosage is posted near where you keep your insulin, and have a system in place to keep track of whether you have taken your insulin. <Abbie Louise MD - Last Filed: 07/21/23 09:25> Prescriptions: No Action carvedilol 6.25 mg tablet 6.25 mg PO BID warfarin 2 mg tablet 2 mg PO QPM Rx Instructions: 2 mg on Mondays, and 3mg all other days lisinopril 20 mg tablet 20 mg PO QDAY amlodipine 10 mg tablet 5 mg PO QDAY furosemide 40 mg tablet 40 mg PO DAILY cholecalciferol (vitamin D3) 25 mcg (1,000 unit) capsule 25 mcg PO DAILY coenzyme Q10 100 mg capsule 100 mg PO DAILY insulin aspart U-100 [Novolog FlexPen U-100 Insulin] 100 unit/mL (3 mL) Insulin Pen 6 unit subcut TIDWM Qty: 15 0RF Patient Comments: per sliding scale aspirin [Adult Aspirin Regimen] 81 mg tablet,delayed release (DR/EC) 81 mg PO DAILY atorvastatin 40 mg tablet 40 mg PO DAILY Levemir FlexPen 100 unit/mL (3 mL) Insulin Pen 30 unit subcut HS <Abbie Louise MD - Last Filed: 07/21/23 09:25> Follow Up/Referrals: Hilda Cheema MD [Primary Care Provider] - <Abbie Louise MD - Last Filed: 07/21/23 09:25> Stand Alone Forms: [facility] Info Instructions <Abbie Louise MD - Last Filed: 07/21/23 09:25>
[2023-07-18 19:30] LABS: Lactate Sepsis w/Reflex* 1.5 mmol/L (0.5-1.9)
[2023-07-18 19:38] LABS: Basophils Percent Auto 0.3 % (0.0-3.0); Eosinophils Percent Auto 2.1 % (0.0-7.0); Hematocrit 45.7 % (33.0-51.0); Hemoglobin* 14.7 gm/dL (12.0-16.0); Immature Granulocytes Pct Auto 0.2 %; Lymphocytes Percent Auto 11.4 % (20-44); Mean Corpuscular HGB Conc 32 gm/dL (32-36); Mean Corpuscular Hemoglobin 29 pg (26-34); Mean Corpuscular Volume 90 fL (80-100); Monocytes Percent Auto 5.1 % (0.0-11.0); Neutrophils Percent Auto 80.9 % (42.0-72.0); Platelet Count* 360 K/uL (140-440); RDW Coefficient of Variation % 13.3 % (11.5-15.5); Red Blood Count 5.09 m/uL (4.00-5.20)
[2023-07-18 19:58] LABS: Slide Review Reflex No
[2023-07-18 20:01] LABS: Albumin* 4.4 g/dL (3.3-5.0); Chloride* 98 mmol/L (96-114); Sodium* 136 mmol/L (135-149)
[2023-07-18 20:02] LABS: Potassium* 3.9 mmol/L (3.6-5.1)
[2023-07-18 20:04] LABS: Anion Gap 7 mEq/L (7-15); Aspartate Amino Transferase* 45 U/L (12-35); Bilirubin Direct* 0.4 mg/dL (0.0-0.5); Bilirubin Total* 0.9 mg/dL (0.1-1.5); Carbon Dioxide* 31 mmol/L (20-32); Creatinine* 0.8 mg/dL (0.5-1.5); Est. Creatinine Clearance* 49.12; Estimated Glomerular Filt Rate 81 ml/min; Total Protein* 8.1 g/dL (6.0-8.3)
[2023-07-18 20:05] LABS: Alanine Aminotransferase* 29 U/L (4-35); Alkaline Phosphatase* 141 U/L (40-150); Blood Urea Nitrogen* 30 mg/dL (7-30); Calcium* 9.2 mg/dL (8.4-10.6); Glucose* 230 mg/dL (60-115); Lipase* 63 U/L (23-300)
[2023-07-18 20:08] LABS: C Reactive Protein* < 0.5 mg/dL (0.5-1.0)
[2023-07-18 20:59] LABS: Appearance Urine Slightly Cloudy (Clear); Bilirubin Urine Negative (Negative); Blood Urine 1+ (Negative); Color Urine Yellow (Yellow); Glucose Urine 2+ (Negative); Ketones Urine Negative (Negative); Leukocyte Esterase Urine Negative (Negative); Nitrite Urine Negative (Negative); Protein Urine 3+ (Negative); Specific Gravity Urine 1.025 (1.000-1.030); Urobilinogen Urine 0.2 (0.2-1.0)
[2023-07-18 21:14] LABS: WBC Urine 0-2 (0-5)
[2023-07-18 21:15] LABS: Bacteria Urine Many; Squamous Epithelial Cell Urine Few (None-Few)
== END 2023-07-18 21:34 | disposition home or self-care (01) ==
PROVIDERS: Emergency Provider Emergency Medicine; PCP Family Medicine
DX: E11.649 Type 2 diabetes mellitus with hypoglycemia without coma (principal)
CPT/HCPCS: 36415; 80048; 80076; 81001; 82962; 83605; 83690; 84443; 85025; 86140; 87086; 87186; 93005; 94761; 99284

== ENCOUNTER 2023-10-09 17:34 | Outpatient (CLI) | payer OTHER, SELFPAY | END 2023-10-09 17:35 | disposition home or self-care (01) | LOC: AMB 10-15 02:34 | PROVIDERS: PCP Family Medicine; Visit Provider Family Medicine | DX: R53.1 Weakness (principal) | CPT/HCPCS: A0998 ==

== ENCOUNTER 2023-11-08 11:27 | Outpatient (CLI) | payer OTHER, SELFPAY | END 2023-11-08 11:28 | disposition home or self-care (01) | LOC: AMB 11-09 13:44 | PROVIDERS: PCP Family Medicine; Visit Provider Family Medicine | DX: R55 Syncope and collapse (principal); R53.1 Weakness | CPT/HCPCS: A0998 ==

== ENCOUNTER 2024-02-11 11:54 | Outpatient (CLI) | payer OTHER, SELFPAY | END 2024-02-11 11:55 | disposition home or self-care (01) | LOC: AMB 02-12 03:34 | PROVIDERS: PCP Family Medicine; Visit Provider Family Medicine | DX: S59.912A Unspecified injury of left forearm, initial encounter (principal); W16.212A Fall in (into) filled bathtub causing other injury, initial encounter; Y93.E1 Activity, personal bathing and showering; Y92.002 Bathroom of unspecified non-institutional (private) residence as the place of occurrence of the external cause | CPT/HCPCS: A0425; A0427 ==

== ENCOUNTER 2024-02-11 12:42 | Observation (INO) | payer OTHER, SELFPAY ==
[2024-02-11 13:07] VITALS: BP 114/88; PULSE 65; RESP 18; TEMP 36.3; O2SAT 98; BMI 36.6
--- NOTE | 2024-02-11 13:17 | CRLHL7_ITS ---
For Patients: As a result of the Cures Act, medical imaging exams and procedure reports are released immediately into your electronic medical record. You may view this report before your referring provider. If you have questions, please contact your health care provider. Indication: Left shoulder pain. Technique: Left humerus 2 views. Comparison: None. Findings/Impression: Acute comminuted and displaced fracture of the proximal-mid shaft of humerus without adjacent soft tissue swelling. Dictated by Shawn Reyes MD @ 02/11/2024 1:54:35 PM (Electronically Signed)
--- NOTE | 2024-02-11 13:19 | ED_ITS ---
HPI - General Adult General Chief complaint: Fall/Minor Trauma <Marva Brown MD - Last Filed: 02/11/24 15:55> Stated complaint: Arm injury <Marva Brown MD - Last Filed: 02/11/24 15:55> Time Seen by Provider: 02/11/24 13:13 <Marva Brown MD - Last Filed: 02/11/24 15:55> Source: patient <Marva Brown MD - Last Filed: 02/11/24 15:55> Mode of arrival: EMS <Marva Brown MD - Last Filed: 02/11/24 15:55> Limitations: no limitations <Marva Brown MD - Last Filed: 02/11/24 15:55> History of Present Illness HPI narrative: 68-year-old female presenting today with arm pain after falling in the shower. Patient states that she was taking a shower which she ?isn't very good at?. When she started to feel weak. She states this is not new for her. She knew she was going to fall so she braced herself against the shower wall and started to slide down the wall. However, about chcf down she could hold herself up anymore and she fell onto her left side. She states that she was unable to get up so EMS was called. Patient does live at home with her . She is complaining of left-sided upper arm pain. She denies hitting her head or losing consciousness. She was not down for very long. She denies any recent illness. She denies any chest , neck or abdominal pain. No nausea or vomiting. Patient does have chronic balance issues secondary to a previous CVA. She is anticoagulated. <Marva Brown MD - Last Filed: 02/11/24 15:55> Related Data Home medications: Home Medications ?Medication ?Instructions ?Recorded ?Confirmed amlodipine 10 mg tablet 5 mg PO QDAY 01/24/22 10/14/23 carvedilol 6.25 mg tablet 6.25 mg PO BID 01/24/22 10/14/23 furosemide 40 mg tablet 40 mg PO DAILY 01/24/22 10/14/23 lisinopril 20 mg tablet 20 mg PO QDAY 01/24/22 10/14/23 warfarin 2 mg tablet 2 mg PO QPM 01/24/22 10/14/23 aspirin 81 mg tablet,delayed 81 mg PO DAILY 02/25/22 10/14/23 release (Adult Aspirin Regimen) atorvastatin 40 mg tablet 40 mg PO DAILY 02/25/22 10/14/23 cholecalciferol (vitamin D3) 25 25 mcg PO DAILY 06/17/22 10/14/23 mcg (1,000 unit) capsule coenzyme Q10 100 mg capsule 100 mg PO DAILY 06/17/22 10/14/23 insulin detemir U-100 100 unit/mL 30 unit subcut HS 05/08/23 10/14/23 (3 mL) subcutaneous pen (Levemir FlexPen) Previous Rx's ?Medication ?Instructions ?Recorded insulin aspart U-100 100 unit/mL 6 unit (0.06 mL) subcut TIDWM #15 06/19/22 (3 mL) subcutaneous pen (Novolog mL FlexPen U-100 Insulin aspart) <Marva Brown MD - Last Filed: 02/11/24 15:55> Allergies/adverse reactions: Allergies Allergy/AdvReac Type Severity Reaction Status Date / Time phytonadione (vitamin K1) Allergy Severe Anaphylaxis Verified 10/14/23 13:22 enoxaparin (From Lovenox) Allergy Diarrhea Verified 10/14/23 13:22 menaquinone-7 (vitamin K2) Allergy Anaphylaxis Verified 10/14/23 13:22 (vitamin K2) <Marva Brown MD - Last Filed: 02/11/24 15:55> Review of Systems Status of ROS: Reports: 10 or more systems reviewed and unremarkable except as noted in History and below <Marva Brown MD - Last Filed: 02/11/24 15:55> [facility] Medical History: Medical History Chronic anticoagulation ?Z79.01 - terminal carman (current) use of anticoagulants (ICD-10) Ataxia ?R27.0 - Ataxia, unspecified (ICD-10) Poorly controlled diabetes mellitus ?E11.65 - Type 2 diabetes mellitus with hyperglycemia (ICD-10) Cognitive impairment ?R41.89 - Other symptoms and signs involving cognitive functions and awareness (ICD-10) Falls ?W19.XXXA - Unspecified fall, initial encounter (ICD-10) Sprain of foot, left ?S93.602A - Unspecified sprain of left foot, initial encounter (ICD-10) Injury of knee, right ?S89.91XA - Unspecified injury of right lower leg, initial encounter (ICD-10) Frailty ?R54 - Age-related physical debility (ICD-10) Osteoarthritis of right knee ?M17.11 - Unilateral primary osteoarthritis, right knee (ICD-10) Anemia ?D64.9 - Anemia, unspecified (ICD-10) Medication noncompliance due to cognitive impairment ?R41.9 - Unspecified symptoms and signs involving cognitive functions and awareness (ICD-10) ?Z91.148 - Patient's other noncompliance with medication regimen for other reason (ICD-10) Heart failure ?I50.9 - Heart failure, unspecified (ICD-10) History of DVT (deep vein thrombosis) ?Z86.718 - Personal history of other venous thrombosis and embolism (ICD-10) Endocarditis ?I38 - Endocarditis, valve unspecified (ICD-10) Hyperlipidemia ?E78.5 - Hyperlipidemia, unspecified (ICD-10) Hypertension ?I10 - Essential (primary) hypertension (ICD-10) Diabetic polyneuropathy ?E11.42 - Type 2 diabetes mellitus with diabetic polyneuropathy (ICD-10) Diabetes ?E11.9 - Type 2 diabetes mellitus without complications (ICD-10) Anticoagulated with warfarin ?Z79.01 - longterm (current) use of anticoagulants (ICD-10) Pleural effusion on left ?J90 - Pleural effusion, not elsewhere classified (ICD-10) Multiple subsegmental pulmonary emboli without acute cor pulmonale ?I26.94 - Multiple subsegmental pulmonary emboli without acute cor pulmonale (ICD-10) History of Clostridioides difficile infection ?Z86.19 - Personal history of other infectious and parasitic diseases (ICD- 10) Enteritis due to Clostridium difficile ?A04.72 - Enterocolitis due to Clostridium difficile, not specified as recurrent (ICD-10) Congestive heart failure ?I50.9 - Heart failure, unspecified (ICD-10) Cellulitis of right lower extremity ?L03.115 - Cellulitis of right lower limb (ICD-10) Acute kidney injury ?N17.9 - Acute kidney failure, unspecified (ICD-10) <Marva Brown MD - Last Filed: 02/11/24 15:55> Surgical History: Surgical History 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) History of partial colectomy ?Z90.49 - Acquired absence of other specified parts of digestive tract (ICD- 10) History of partial gastrectomy ?Z90.3 - Acquired absence of stomach [part of] (ICD-10) H/O splenectomy ?Z90.81 - Acquired absence of spleen (ICD-10) History of open heart surgery (05/17/21) ?Z98.890 - Other specified postprocedural states (ICD-10) History of appendectomy ?Z90.49 - Acquired absence of other specified parts of digestive tract (ICD- 10) <Marva Brown MD - Last Filed: 02/11/24 15:55> Family History: Family History Mother Colon cancer Diabetes Cirrhosis Brother Colon cancer Father Stroke High blood pressure Heart disease <Marva Brown MD - Last Filed: 02/11/24 15:55> Social History: Social History Narrative: She lives at home with her daughter, Oscar, and her . She reports they live in a small home. She primarily walks around the house holding onto furniture. She has a cane that she occasionally uses, especially when she goes out. [place] [address]. Her daughter sets up her medications but notes that she does not know if her mom is reliably taking her medications. Daughter specifically notes that her mom has probably been forgetting her insulin at times and her warfarin has been missed at least a couple times in the past week or so. What is your current living situation?: I presently have a place to live Problems where you live: no known problems Problems where you live details: NA In the past 12 months, utilities in danger of being shut off: no In past 12 months, lack of transportation kept you from medical appts, meetings, work, or getting things needed for daily living: no In the past 12 mos, have been you worried that your food would run out before you had money to buy more?: never true In the past 12 mos, the food you bought just didn't last and you didn't have money to buy more?: never true Are you following a diet prescribed by a doctor: Yes (diabetic, heart healthy) Highest level of school completed/degree received: Associate degree: occupational, technical, vocational program Smoking Status: Former smoker Do you use any of these nicotine containing products: None Second hand tobacco smoke exposure: No How often do you have a drink containing alcohol: never How often do you have six or more drinks on one occasion: Never AUDIT-C Alcohol total score: 0 Non-prescribed substance use: denies use Caffeine: No How often does anyone, including family, friends and others, physically hurt you : never How often does anyone, including family, friends and others, insult or talk down to you: never How often does anyone, including family, friends and others, threaten you with harm: never How often does anyone, including family, friends and others, scream or curse at you: never Gender Identity: female service: No <Marva Brown MD - Last Filed: 02/11/24 15:55> Exam Narrative: Exam Narrative: Overweight, well-developed patient in obvious mild discomfort. Alert and oriented. Answers questions appropriately. Mood and affect are appropriate. Thoughts are goal oriented and rational. No tangential or magical thinking noted. Patient speaks in full sentences without needing to catch her breath. Speech is not slurred or pressured. HEENT: Normocephalic atraumatic. Pupils are equally round reactive to light. Extraocular muscles are intact. Conjunctivae are moist without any icterus noted. Moist mucous membranes. Posterior pharynx is normal. Neck is soft without any lymphadenopathy or thyromegaly. No masses are appreciated. No tenderness to palpation of the cervical spine. She has full range of motion at the neck without tenderness. Cardiovascular: Heart is regular rate and rhythm. Lungs: Clear to auscultation bilaterally. No tenderness to palpation of the chest wall. Abdomen: Soft and nontender nondistended with normal bowel sounds. Extremities: Patient has an obvious swelling of the anterior upper arm on the left with tenderness to palpation in the area. Concerns for an evolving hematoma. No tenderness at the shoulder or elbow. No tenderness at the forearm, wrist or hand. Hand staff assistant is normal and symmetric. Skin: Pale, well perfused. <Marva Brown MD - Last Filed: 02/11/24 15:55> Const: Vital Signs, click to edit/add: Vital Signs - 24 hr 02/11/24 13:07 Temperature 97.4 F L Pulse Rate [Pulse Oximeter] 65 Respiratory Rate 18 Blood Pressure [Ri ght Upper Arm] 114/88 Pulse Oximetry 98 Oxygen Delivery Me thod Room Air <Marva Brown MD - Last Filed: 02/11/24 15:55> Vital Signs, click to edit/add: Vital Signs - 24 hr 02/11/24 13:07 Temperature 97.4 F L Pulse Rate [Pulse Oximeter] 65 Respiratory Rate 18 Blood Pressure [Ri ght Upper Arm] 114/88 Pulse Oximetry 98 Oxygen Delivery Me thod Room Air <Germain Villaseñor MD - Last Filed: 02/11/24 15:40> Course Course ED Course: A x-ray was done showing a displaced fracture of the humerus. Consulted orthopedics, Gallo Loomis, who recommended a coaptation splint and follow-up next week. Risks and benefits of sedation were discussed with the patient including need for intubation. Patient agreed to proceed with sedation and splinting of the upper arm. Sedation was provided by Dr. Villaseñor. Please see his note for further details. Patient also received a dose of fentanyl prior to the procedure. Once appropriate sedation was achieved, a coaptation splint was applied. Shoulder mobilizer was also put on the patient. A postprocedure x-ray shows that the the fracture is still for displaced for. However this is before the patient is able to sit up and have gravity also assist with placement. I did speak to Dr. Lyles up about admitting this patient given that she already has balance issues and will have a difficult time ambulating without an arm. She does use a walker when she leaves her home. I am also concerned about the possibility of that hematoma getting bigger so I do believe that admission for observation at this time would be in the best medical interest of this patient. <Marva Brown MD - Last Filed: 02/11/24 15:55> Vital Signs Vital signs: Initial Vital Signs Temperature 97.4 F L 02/11/24 13:07 Temperature Source Temporal Artery Scan 02/11/24 13:07 Pulse Rate 65 02/11/24 13:07 Respiratory Rate 18 12/25/24 13:07 Blood Pressure 114/88 02/11/24 13:07 Blood Pressure Mean 96 02/11/24 13:07 Pulse Oximetry 98 02/11/24 13:07 Oxygen Delivery Method Room Air 02/11/24 13:07 Vital Signs Temperature 97.4 F L 02/11/24 13:07 Pulse Rate 65 02/11/24 13:07 Respiratory Rate 18 02/11/24 13:07 Blood Pressure 114/88 02/11/24 13:07 Pulse Oximetry 98 02/11/24 13:07 Oxygen Delivery Method Room Air 02/11/24 13:07 Temperature 97.4 F L 02/11/24 13:07 Pulse Rate 65 02/11/24 13:07 Respiratory Rate 18 02/11/24 13:07 Blood Pressure 114/88 02/11/24 13:07 Pulse Oximetry 98 02/11/24 13:07 Oxygen Delivery Method Room Air 02/11/24 13:07 <Marva Brown MD - Last Filed: 02/11/24 15:55> Initial Vital Signs Temperature 97.4 F L 02/11/24 13:07 Temperature Source Temporal Artery Scan 02/11/24 13:07 Pulse Rate 65 02/11/24 13:07 Respiratory Rate 18 02/11/24 13:07 Blood Pressure 114/88 02/11/24 13:07 Blood Pressure Mean 96 02/11/24 13:07 Pulse Oximetry 98 02/11/24 13:07 Oxygen Delivery Method Room Air 02/11/24 13:07 Vital Signs Temperature 97.4 F L 02/11/24 13:07 Pulse Rate 65 02/11/24 13:07 Respiratory Rate 18 02/11/24 13:07 Blood Pressure 114/88 02/11/24 13:07 Pulse Oximetry 98 02/11/24 13:07 Oxygen Delivery Method Room Air 02/11/24 13:07 Temperature 97.4 F L 02/11/24 13:07 Pulse Rate 65 02/11/24 13:07 Respiratory Rate 18 02/11/24 13:07 Blood Pressure 114/88 02/11/24 13:07 Pulse Oximetry 98 02/11/24 13:07 Oxygen Delivery Method Room Air 02/11/24 13:07 <Germain Villaseñor MD - Last Filed: 02/11/24 15:40> Medications Administered Medications: Discontinued Medications Generic Name Dose Route Start Last Admin Trade Name Freq PRN Reason Stop Dose Admin Fentanyl 50 mcg 02/11/24 15:12 02/11/24 15:43 Fentanyl 100 Mcg/2 Ml Inj IVP 02/11/24 15:13 50 mcg ONCE ONE Administration Propofol 200 mg 02/11/24 14:43 02/11/24 15:43 Propofol 10 Mg/Ml Inj IVP 02/11/24 14:44 200 mg ONCE ONE Administration <Marva Brown MD - Last Filed: 02/11/24 15:55> Discontinued Medications Generic Name Dose Route Start Last Admin Trade Name Freq PRN Reason Stop Dose Admin Fentanyl 50 mcg 02/11/24 15:12 02/11/24 15:43 Fentanyl 100 Mcg/2 Ml Inj IVP 02/11/24 15:13 50 mcg ONCE ONE Administration Propofol 200 mg 02/11/24 14:43 02/11/24 15:43 Propofol 10 Mg/Ml Inj IVP 02/11/24 14:44 200 mg ONCE ONE Administration <Germain Villaseñor MD - Last Filed: 02/11/24 15:40> Medical Decision Making MDM Narrative Medical decision making narrative: 68-year-old female with chronic weakness, gait instability, presenting with a displaced fracture of the humerus. Patient will be admitted for observation at this time. <Marva Brown MD - Last Filed: 02/11/24 15:55> Imaging Data Humerus x-ray: Attestation: I have reviewed the pertinent imaging results. <Marva Brown MD - Last Filed: 02/11/24 15:55> Radiologist's impression: Final Report: Indication: Left shoulder pain. Technique: Left humerus 2 views. Comparison: None. Findings/Impression: Acute comminuted and displaced fracture of the proximal-mid shaft of humerus without adjacent soft tissue swelling. <Marva Brown MD - Last Filed: 02/11/24 15:55> Discharge Plan Discharge Clinical Impression: Humeral fracture, Hematoma, Gait instability <Marva Brown MD - Last Filed: 02/11/24 15:55> Patient Disposition: Admitted As Observation <Marva Brown MD - Last Filed: 02/11/24 15:55> Condition: Stable <Marva Brown MD - Last Filed: 02/11/24 15:55> Prescriptions: No Action carvedilol 6.25 mg tablet 6.25 mg PO BID warfarin 2 mg tablet 2 mg PO QPM Rx Instructions: 2 mg on Mondays, and 3mg all other days lisinopril 20 mg tablet 20 mg PO QDAY amlodipine 10 mg tablet 5 mg PO QDAY furosemide 40 mg tablet 40 mg PO DAILY cholecalciferol (vitamin D3) 25 mcg (1,000 unit) capsule 25 mcg PO DAILY coenzyme Q10 100 mg capsule 100 mg PO DAILY insulin aspart U-100 [Novolog FlexPen U-100 Insulin] 100 unit/mL (3 mL) Insulin Pen 6 unit subcut TIDWM Qty: 15 0RF Patient Comments: per sliding scale aspirin [Adult Aspirin Regimen] 81 mg tablet,delayed release (DR/EC) 81 mg PO DAILY atorvastatin 40 mg tablet 40 mg PO DAILY Levemir FlexPen 100 unit/mL (3 mL) Insulin Pen 30 unit subcut HS <Marva Brown MD - Last Filed: 02/11/24 15:55> Follow Up/Referrals: Hilda Cheema MD [Primary Care Provider] - <Marva Brown MD - Last Filed: 02/11/24 15:55> Procedures Procedural Sedation Pre procedure diagnosis: Displaced left humeral shaft fracture <Germain Villaseñor MD - Last Filed: 02/11/24 15:40> Verification/time out: correct patient, correct site and time out performed <Germain Villaseñor MD - Last Filed: 02/11/24 15:40> Sedation provider same as procedural provider: No <Germain Villaseñor MD - Last Filed: 02/11/24 15:40> Assistants, if any: Dr. Villaseñor was called to assist in procedural sedation for this patient <Germain Villaseñor MD - Last Filed: 02/11/24 15:40> Indication: other (Left humeral shaft fracture, requiring placement of coaptation splint) <Germain Villaseñor MD - Last Filed: 02/11/24 15:40> ASA Class: III <Germain Villaseñor MD - Last Filed: 02/11/24 15:40> Mallampati classification: II. soft palate, fauces, uvula visible <Germain Villaseñor MD - Last Filed: 02/11/24 15:40> Preparation: air sampling and monitoring applied, pulse oximeter, capnometry used, supplemental O2 applied and IV secured <Germain Villaseñor MD - Last Filed: 02/11/24 15:40> IV Propofol dose (mg): 60 <Germain Villaseñor MD - Last Filed: 02/11/24 15:40> Complications: hypoxia (Developed brief episode of hypoxia which responded to supplemental oxygen and bag-valve supplementation for less than minute. No other complications noted. Pulse and blood pressure remained stable throughout.) <Germain Villaseñor MD - Last Filed: 02/11/24 15:40> Interventions: oxygen applied, airway repositioned and assist by BVM <Germain Villaseñor MD - Last Filed: 02/11/24 15:40>
[2024-02-11 15:20] VITALS: BP 147/69; PULSE 64; RESP 18; O2SAT 99
--- NOTE | 2024-02-11 15:25 | CRLHL7_ITS ---
For Patients: As a result of the Cures Act, medical imaging exams and procedure reports are released immediately into your electronic medical record. You may view this report before your referring provider. If you have questions, please contact your health care provider. INDICATION: Left humeral fracture, status post reduction. TECHNIQUE: Left humerus radiographs, 2 views. COMPARISON: Same day radiographs of the left humerus. FINDINGS/IMPRESSION: Redemonstrated acute displaced comminuted fracture of the left humeral shaft, improved alignment of the fracture fragments status post reduction. No new fractures identified. Dictated by Declan Wolf MD @ 02/11/2024 4:13:47 PM (Electronically Signed)
[2024-02-11 15:28] VITALS: BP 151/74; PULSE 62; RESP 18; O2SAT 98
[2024-02-11] MEDS: fentaNYL 100 MCG/2 ML inj 50 MCG IVP (15:43)
[2024-02-11] MEDS: PROPOFOL 10 MG/ML INJ 200 MG IVP (15:43)
[2024-02-11 16:34] VITALS: BP 160/74; PULSE 64; RESP 18; TEMP 36.4; O2SAT 92; O2SAT 95; BMI 41.0
--- NOTE | 2024-02-11 17:31 | P.IMHP_ITS ---
Hospitalist- H&P: HPI History of Present Illness Date Seen: 02/11/24 Chief complaint: Arm injury Narrative: Nava Borrego is a 68 year old woman presents to our emergency department today via EMS for assessment of left upper arm pain status post fall. Patient was in her usual state of health until she sustained a fall today. She took her shower per usual. After her shower she was attempting to step over side of the bathtub when she realized she was feeling weak. She decided to sit on side of the bathtub to see if she could gather some strength. As she sat there she started to lean over and slumped against the side of the shower wall with the left side of her body. She was unable to get up even with the help of her . They called EMS for help and brought her in for further assessment. She did not lose any consciousness at all. Does not have any other pain aside from the left upper arm and shoulder discomfort that she has had since she slumped over in the shower. No prodrome will symptoms. Acknowledges long-standing ataxia status post stroke. It is more difficult for her to walk because of this ataxia. She has noticed some of this while sitting as well. This is not any different than usual at this time. No recent fever, rigors, diaphoresis, or any other illness. No recent travel, trauma, or blood loss of any sort. Acknowledges chronic low back pain and right knee pain. This is not any different now compared to prior to her fall in the shower. 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 (ICD-10) Poorly controlled diabetes mellitus ?E11.65 - Type 2 diabetes mellitus with hyperglycemia (ICD-10) Cognitive impairment ?R41.89 - Other symptoms and signs involving cognitive functions and awareness (ICD-10) Falls ?W19.XXXA - Unspecified fall, initial encounter (ICD-10) Sprain of foot, left ?S93.602A - Unspecified sprain of left foot, initial encounter (ICD-10) Injury of knee, right ?S89.91XA - Unspecified injury of right lower leg, initial encounter (ICD-10) Frailty ?R54 - Age-related physical debility (ICD-10) Osteoarthritis of right knee ?M17.11 - Unilateral primary osteoarthritis, right knee (ICD-10) Anemia ?D64.9 - Anemia, unspecified (ICD-10) Medication noncompliance due to cognitive impairment ?R41.9 - Unspecified symptoms and signs involving cognitive functions and awareness (ICD-10) ?Z91.148 - Patient's other noncompliance with medication regimen for other r vasu (ICD-10) Heart failure ?I50.9 - Heart failure, unspecified (ICD-10) History of DVT (deep vein thrombosis) ?Z86.718 - Personal history of other venous thrombosis and embolism (ICD-10) Endocarditis ?I38 - Endocarditis, valve unspecified (ICD-10) Hyperlipidemia ?E78.5 - Hyperlipidemia, unspecified (ICD-10) Hypertension ?I10 - Essential (primary) hypertension (ICD-10) Diabetic polyneuropathy ?E11.42 - Type 2 diabetes mellitus with diabetic polyneuropathy (ICD-10) Diabetes ?E11.9 - Type 2 diabetes mellitus without complications (ICD-10) Anticoagulated with warfarin ?Z79.01 - senior living (current) use of anticoagulants (ICD-10) Pleural effusion on left ?J90 - Pleural effusion, not elsewhere classified (ICD-10) Multiple subsegmental pulmonary emboli without acute cor pulmonale ?I26.94 - Multiple subsegmental pulmonary emboli without acute cor pulmonale (ICD-10) History of Clostridioides difficile infection ?Z86.19 - Personal history of other infectious and parasitic diseases (ICD- 10) Enteritis due to Clostridium difficile ?A04.72 - Enterocolitis due to Clostridium difficile, not specified as recurrent (ICD-10) Congestive heart failure ?I50.9 - Heart failure, unspecified (ICD-10) Cellulitis of right lower extremity ?L03.115 - Cellulitis of right lower limb (ICD-10) Acute kidney injury ?N17.9 - Acute kidney failure, unspecified (ICD-10) Surgical History 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) History of partial colectomy ?Z90.49 - Acquired absence of other specified parts of digestive tract (ICD- 10) History of partial gastrectomy ?Z90.3 - Acquired absence of stomach [part of] (ICD-10) H/O splenectomy ?Z90.81 - Acquired absence of spleen (ICD-10) History of open heart surgery (05/17/21) ?Z98.890 - Other specified postprocedural states (ICD-10) History of appendectomy ?Z90.49 - Acquired absence of other specified parts of digestive tract (ICD- 10) Family History Mother Colon cancer Diabetes Cirrhosis Brother Colon cancer Father Stroke High blood pressure Heart disease Social History Narrative: She lives at home with her daughter, Oscar, and her . She reports they live in a small home. She primarily walks around the house holding onto furniture. She has a cane that she occasionally uses, especially when she goes out. She [place] on [address]. Her daughter sets up her medications but notes that she does not know if her mom is reliably taking her medications. Daughter specifically notes that her mom has probably been forgetting her insulin at times and her warfarin has been missed at least a couple times in the past week or so. What is your current living situation?: I presently have a place to live Problems where you live: no known problems Problems where you live details: constant remodeling of older home In the past 12 months, utilities in danger of being shut off: no In past 12 months, lack of transportation kept you from medical appts, meetings, work, or getting things needed for daily living: no In the past 12 mos, have been you worried that your food would run out before you had money to buy more?: never true In the past 12 mos, the food you bought just didn't last and you didn't have money to buy more?: never true Are you following a diet prescribed by a doctor: Yes (diabetic, heart healthy) Highest level of school completed/degree received: Associate degree: academic program Smoking Status: Former smoker Do you use any of these nicotine containing products: None Second hand tobacco smoke exposure: No How often do you have a drink containing alcohol: never How often do you have six or more drinks on one occasion: Never AUDIT-C Alcohol total score: 0 Non-prescribed substance use: denies use Caffeine: No How often does anyone, including family, friends and others, physically hurt you : never How often does anyone, including family, friends and others, insult or talk down to you: never How often does anyone, including family, friends and others, threaten you with harm: never How often does anyone, including family, friends and others, scream or curse at you: never Gender Identity: female service: Yes Meds Home Medications and Allergies Home Medications ?Medication ?Instructions ?Recorded ?Confirmed ?Type amlodipine 10 mg tablet 5 mg PO QDAY 01/24/22 10/14/23 History carvedilol 6.25 mg tablet 6.25 mg PO BID 01/24/22 10/14/23 History furosemide 40 mg tablet 40 mg PO DAILY 01/24/22 10/14/23 History lisinopril 20 mg tablet 20 mg PO QDAY 01/24/22 10/14/23 History warfarin 2 mg tablet 2 mg PO QPM 01/24/22 10/14/23 History aspirin 81 mg tablet,delayed 81 mg PO DAILY 02/25/22 10/14/23 History release (Adult Aspirin Regimen) atorvastatin 40 mg tablet 40 mg PO DAILY 02/25/22 10/14/23 History cholecalciferol (vitamin D3) 25 25 mcg PO DAILY 06/17/22 10/14/23 History mcg (1,000 unit) capsule coenzyme Q10 100 mg capsule 100 mg PO DAILY 06/17/22 10/14/23 History insulin detemir U-100 100 unit/mL 30 unit subcut HS 05/08/23 10/14/23 History (3 mL) subcutaneous pen (Levemir FlexPen) Allergies Allergy/AdvReac Type Severity Reaction Status Date / Time phytonadione (vitamin K1) Allergy Severe Anaphylaxis Verified 10/14/23 13:22 enoxaparin (From Lovenox) Allergy Diarrhea Verified 10/14/23 13:22 menaquinone-7 (vitamin K2) Allergy Anaphylaxis Verified 10/14/23 13:22 (vitamin K2) Exam Narrative: Exam Narrative: I evaluated her in her hospital room. She is awake and interactive. Left arm is in a splint and an immobilizer. She indicates is difficult for her to find a comfortable position. Vision and hearing are adequate. Friendly and cooperative. Articulate. Alert and oriented x3. External auditory canals are clear and tympanic membranes are normal. Midline nasal septum. Dentition in good repair. Oropharynx is moist. No icterus or conjunctival injection. Conjugate gaze. Line trachea. Neck is supple. No head neck lymphadenopathy. Lungs are clear to auscultation. No wheezing, rhonchi, or rales. Chest wall excursions are full. No CVA tenderness. Heart tones with chaotic rhythm. Systolic heart murmur noted grade 3/6. 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 No gallops or rubs. PMI is not laterally displaced. Abdomen with active bowel sounds, soft, nontender. Obese. Palpable pulses upper extremities and lower extremities. Capillary refill less than 3 seconds in upper and lower extremities. 1-2 mm edema pretibially bilaterally. No focal motor neurologic deficits while sitting in bed. Const: Vital Signs, click to edit/add: Vital Signs - 24 hr 02/11/24 13:07 02/11/24 15:20 02/11/24 15:20 Temperature 97.4 F L Pulse Rate [Pulse Oximeter] 65 64 Pulse Rate [Right Pulse Oximeter] Respiratory Rate 18 18 Blood Pressure [Ri ght Arm] Blood Pressure [Ri ght Upper Arm] 114/88 147/69 H Pulse Oximetry 98 99 99 Oxygen Delivery Me thod Room Air Nasal Cannula Nasal Cannula Oxygen Flow Rate 8 02/11/24 15:28 02/11/24 16:34 02/11/24 16:34 Temperature 97.5 F L Pulse Rate [Pulse Oximeter] 62 Pulse Rate [Right Pulse Oximeter] 64 Respiratory Rate 18 18 18 Blood Pressure [Ri ght Arm] 160/74 H Blood Pressure [Ri ght Upper Arm] 151/74 H Pulse Oximetry 98 95 92 Oxygen Delivery Me thod Nasal Cannula Room Air Room Air Oxygen Flow Rate Hospitalist - H&P: Result Imaging X-ray of the left humerus: Attestation: I have reviewed the pertinent imaging results. Radiologist's impression: Before reduction efforts: Acute comminuted and displaced fracture of the proximal-mid shaft of humerus without adjacent soft tissue swelling. Post reduction efforts: Redemonstrated acute displaced comminuted fracture of the left humeral shaft, improved alignment of the fracture fragments status post reduction. No new fractures identified. Assessment and Plan Assessment and plan (1) Humeral fracture: Problem comment: -left proximal comminuted humerus fracture status post reduction 02/11/2024 -orthopedic consultation with Dr. Begum requested Status: Acute (2) Hematoma: Problem comment: -acute hematoma at site of left proximal humerus fracture -monitor hemoglobin while in hospital Status: Acute (3) Gait instability: Problem comment: -baseline unstable gait with ataxia since stroke about 10 years ago -ordinarily uses walker or cane or furniture for stability, but now with new left humerus fracture ability to ambulate safely needs to be reassessed -PT, OT consultation Status: Acute (4) Ataxia: Problem comment: - noted since previous CVA, thought to be embolic from paroxysmal atrial fibrillation Status: Acute (5) Anticoagulated with warfarin: Problem comment: -for underlying paroxysmal atrial fibrillation, INR goal of 2-3 Status: Acute (6) Paroxysmal atrial fibrillation: Problem comment: -thought to be cause of previous embolic stroke -chronically anticoagulated with warfarin with INR goal of 2-3 -carvedilol for rate control Status: Acute (7) Insulin dependent diabetes mellitus: Problem comment: - recent outpatient A1C >14 - Pt reports A1c of 8.2 ~09/2023 - accuchecks and SSI Status: Acute Plan 1. Reviewed impression and recommendations with patient and her daughter, Oscar. 2. Answered their questions to their satisfaction. 3. Patient and daughter are agreeable with above stated plans and recommendations. They understand that patient may require short-term rehabilitation before being able to return home safely, given acute left humerus fracture on top of baseline unstable gait. 4. Monitor labs, including a urinalysis and urine culture, given her sense of weakness while in the shower. Total Time Spent Total Time Spent: 65 minutes
[2024-02-11 17:51] LABS: Lactate* 0.9 mmol/L (0.5-1.9)
[2024-02-11 17:54] LABS: Hematocrit 35.5 % (33.0-51.0); Hemoglobin* 11.1 gm/dL (12.0-16.0); Mean Corpuscular HGB Conc 31 gm/dL (32-36); Mean Corpuscular Hemoglobin 28 pg (26-34); Mean Corpuscular Volume 90 fL (80-100); Platelet Count* 261 K/uL (140-440); Red Blood Count 3.94 m/uL (4.00-5.20); White Blood Count* 15.74 K/uL (4.50-11.00)
[2024-02-11 17:57] LABS: Slide Review Reflex No
[2024-02-11 18:08] LABS: Albumin* 3.1 g/dL (3.3-5.0); Chloride* 106 mmol/L (96-114)
[2024-02-11 18:09] LABS: Potassium* 4.9 mmol/L (3.6-5.1); Sodium* 133 mmol/L (135-149)
[2024-02-11 18:11] LABS: Bilirubin Total* 0.7 mg/dL (0.1-1.5); Creatinine* 0.7 mg/dL (0.5-1.5); Est. Creatinine Clearance* 49.12; Estimated Glomerular Filt Rate 95 ml/min; INR 2.53 (0.91-1.10); Prothrombin Time 29.2 Seconds
[2024-02-11 18:12] LABS: Alanine Aminotransferase* 23 U/L (4-35); Alkaline Phosphatase* 85 U/L (40-150); Anion Gap 1 mEq/L (7-15); Aspartate Amino Transferase* 32 U/L (12-35); Blood Urea Nitrogen* 29 mg/dL (7-30); Calcium* 8.5 mg/dL (8.4-10.6); Carbon Dioxide* 26 mmol/L (20-32); Glucose* 249 mg/dL (60-115); Total Protein* 5.9 g/dL (6.0-8.3)
[2024-02-11] MEDS: HYDROmorphone 0.5 mg/0.5 ml inj IVP (18:14)
[2024-02-11] MEDS: INSULIN ASPART 100 UNIT/ML 6 UNIT SUBCUT (18:15)
[2024-02-11] MEDS: OXYCODONE 5 MG TABLET PO (18:15)
[2024-02-11 18:16] LABS: C Reactive Protein* < 0.5 mg/dL (0.5-1.0)
[2024-02-11] MEDS: INSULIN ASPART 100 UNIT/ML SUBCUT ×2 (18:16→21:25)
--- NOTE | 2024-02-11 19:08 | PC.NURSE ---
Nursing Care Hours:[id number] Pt arrived on stretcher with daughter by side. Transferred to bed using air matress. Incontinent BM cleaned up. Some redness to pannus area but no skin breakdown noted. HTN but stable on room air. Pain at rest 2/10, but with movement up to 8/10. Treated per eMAR. Incontinent of bladder in bed. 2 assist pivot transfer with quad cane to [facility] for urine sample. Pt tolerated well but did c/o increaed pain. No output, urine sample pending. Insulin given per order and sliding scale. Tolerating regular diet, no nausea. Sitting up in chair, resting comfortably at end of shift. CMS intact for LUE and cap refill < 3sec.
[2024-02-11 20:12] VITALS: BP 168/65; PULSE 71; RESP 18; TEMP 36.4; O2SAT 96
[2024-02-11] MEDS: ACETAMINOPHEN 325 MG TABLET 650 MG PO (21:22)
[2024-02-11] MEDS: carvediloL 6.25 MG TABLET PO (21:22)
[2024-02-11] MEDS: GABAPENTIN 100 MG CAPSULE PO (21:23)
[2024-02-11] MEDS: INSULIN GLARGINE,HUM.REC.ANLOG 100 UNIT/ML INSULN.PEN 30 UNIT SUBCUT (21:23)
[2024-02-11] MEDS: SODIUM CHLORIDE 0.9 % (FLUSH) 10 ML SYRINGE 5 ML IVF (21:26)
[2024-02-11 21:50] LABS: Hemoglobin* 10.7 gm/dL (12.0-16.0)
[2024-02-11 23:55] VITALS: RESP 18; O2SAT 95
[2024-02-12] VITALS: BP 155/80; PULSE 76; RESP 18; TEMP 36.6; O2SAT 95
[2024-02-12 03:00] VITALS: BP 185/69; PULSE 62; RESP 18; TEMP 36.6; O2SAT 95
[2024-02-12] MEDS: OXYCODONE 5 MG TABLET PO (05:13)
[2024-02-12] MEDS: KETOROLAC 30 MG/ML inj IVP (05:14)
[2024-02-12] MEDS: SODIUM CHLORIDE 0.9 % (FLUSH) 10 ML SYRINGE 5 ML IVF ×2 (05:15→09:12)
--- NOTE | 2024-02-12 06:43 | PC.NURSE ---
Pt pleasant anad cooperative. She is a mod to heavy 2 person assist. VSS. left arm in an immobolizer. Pain is controlled with oxy and torodal. She has good CMS. She is incontinent and so have been unable to obtain UA.
[2024-02-12 06:57] LABS: Basophils Percent Auto 0.3 % (0.0-3.0); Eosinophils Percent Auto 1.7 % (0.0-7.0); Hematocrit 32.1 % (33.0-51.0); Immature Granulocytes Pct Auto 0.2 %; Lymphocytes Percent Auto 14.8 % (20-44); Mean Corpuscular HGB Conc 31 gm/dL (32-36); Mean Corpuscular Hemoglobin 28 pg (26-34); Mean Corpuscular Volume 90 fL (80-100); Monocytes Percent Auto 10.6 % (0.0-11.0); Neutrophils Percent Auto 72.4 % (42.0-72.0); Platelet Count* 270 K/uL (140-440); RDW Coefficient of Variation % 14.4 % (11.5-15.5); Red Blood Count 3.55 m/uL (4.00-5.20); White Blood Count* 11.56 K/uL (4.50-11.00)
[2024-02-12 07:00] VITALS: BP 164/73; PULSE 67; RESP 18; TEMP 36.4; O2SAT 92
[2024-02-12 07:04] LABS: Slide Review Reflex No
[2024-02-12 07:17] LABS: Chloride* 104 mmol/L (96-114); Sodium* 134 mmol/L (135-149)
[2024-02-12 07:18] LABS: INR 2.88 (0.91-1.10); Prothrombin Time 32.4 Seconds
[2024-02-12 07:19] LABS: Creatinine* 0.8 mg/dL (0.5-1.5); Est. Creatinine Clearance* 49.12; Estimated Glomerular Filt Rate 81 ml/min
[2024-02-12 07:20] LABS: Anion Gap 3 mEq/L (7-15); Blood Urea Nitrogen* 31 mg/dL (7-30); Carbon Dioxide* 27 mmol/L (20-32); Glucose* 244 mg/dL (60-115)
[2024-02-12 07:21] LABS: Calcium* 8.5 mg/dL (8.4-10.6)
[2024-02-12 07:23] LABS: C Reactive Protein* 0.6 mg/dL (0.5-1.0)
[2024-02-12 07:25] LABS: Hemoglobin A1C* 9.3 % (0-5.6)
[2024-02-12] MEDS: GABAPENTIN 100 MG CAPSULE PO ×2 (09:11→14:18)
[2024-02-12] MEDS: lisinopriL 20 MG TABLET PO (09:12)
[2024-02-12] MEDS: ACETAMINOPHEN 325 MG TABLET 650 MG PO ×3 (09:12→17:21)
[2024-02-12] MEDS: FUROSEMIDE 40 MG TABLET PO (09:12)
[2024-02-12] MEDS: INSULIN ASPART 100 UNIT/ML 6 UNIT SUBCUT ×3 (09:12→17:22)
[2024-02-12] MEDS: ATORVASTATIN CALCIUM 40 MG TABLET PO (09:12)
[2024-02-12] MEDS: carvediloL 6.25 MG TABLET PO (09:12)
[2024-02-12] MEDS: INSULIN ASPART 100 UNIT/ML SUBCUT ×3 (09:13→17:22)
--- NOTE | 2024-02-12 10:33 | P.IMPN_ITS ---
Progress Note: A&P Assessment and plan (1) Humeral fracture: Problem details: - left proximal comminuted humerus fracture status post reduction 02/11/2024 - orthopedic consultation with Dr. Begum requested Status: Acute (2) Hematoma: Problem details: - acute hematoma at site of left proximal humerus fracture - monitor hemoglobin while in hospital, anticoagulated Status: Acute (3) Gait instability: Problem details: - baseline unstable gait with ataxia since stroke about 10 years ago - ordinarily uses walker or cane or furniture for stability, but now with new left humerus fracture ability to ambulate safely needs to be reassessed - PT and OT consultations ordered Status: Acute (4) Ataxia: Problem details: - noted since previous CVA, thought to be embolic from paroxysmal atrial fibrillation Status: Acute (5) Anticoagulated with warfarin: Problem details: - for underlying paroxysmal atrial fibrillation, INR goal of 2-3 - HOLDING Warfarin as of 02/10 as the need for surgical intervention unclear at this time Status: Acute (6) Paroxysmal atrial fibrillation: Problem details: - thought to be cause of previous embolic stroke - chronically anticoagulated with warfarin with INR goal of 2-3 - carvedilol for rate control Status: Acute (7) Insulin dependent diabetes mellitus: Problem details: - A1C 9.3 on 02/12/24 - Accuchecks and SSI Status: Acute Plan - per above - daughter Oscar updated by phone, questions answered Subjective Date Seen: 02/12/24 Interval history: Amparo was admitted to the hospital after a mechanical fall at home, sustaining a fracture of the L humeral shaft. Orthopedic surgery has seen the patient, their team is discussing options regarding surgical intervention. Today, Nava is seeing therapy teams, who are currently recommending SNF placement. Besides pain with movement, no other concerns for hospitalist team. Exam Narrative: Exam Narrative: GEN: Alert and sitting comfortably in bedside chair HEENT: EOMIs bilaterally, no scleral icterus CV: RRR, blowing systolic murmur noted at left sternal border without radiation R: LCTA bilaterally without concerning wheezing Ext: LUE is splinted with normal peripheral pulses, sensation, and movement of L hand/fingers. + edema bilateral lower extremities, baseline and stable Skin: No concerning skin lesions or rashes on exposed skin Neuro: Normal peripheral pulses and sensation, no resting tremor Psych: Appropriate without agitation Const: Vital Signs, click to edit/add: Vital Signs - 24 hr 02/11/24 13:07 02/11/24 15:20 02/11/24 15:20 Temperature 97.4 F L Pulse Rate [Pulse Oximeter] 65 64 Pulse Rate [Right Pulse Oximeter] Pulse Rate [Right Radial] Respiratory Rate 18 18 Blood Pressure [Ri ght Arm] Blood Pressure [Ri ght Upper Arm] 114/88 147/69 H Pulse Oximetry 98 99 99 Oxygen Delivery Me thod Room Air Nasal Cannula Nasal Cannula Oxygen Flow Rate 8 02/11/24 15:28 02/11/24 16:34 02/11/24 16:34 Temperature 97.5 F L Pulse Rate [Pulse Oximeter] 62 Pulse Rate [Right Pulse Oximeter] 64 Pulse Rate [Right Radial] Respiratory Rate 18 18 18 Blood Pressure [Ri ght Arm] 160/74 H Blood Pressure [Ri ght Upper Arm] 151/74 H Pulse Oximetry 98 95 92 Oxygen Delivery Me thod Nasal Cannula Room Air Room Air Oxygen Flow Rate 02/11/24 20:12 02/11/24 23:55 02/12/24 00:00 Temperature 97.5 F L 97.9 F Pulse Rate [Pulse Oximeter] Pulse Rate [Right Pulse Oximeter] Pulse Rate [Right Radial] 71 76 Respiratory Rate 18 18 18 Blood Pressure [Ri ght Arm] 168/65 H 155/80 H Blood Pressure [Ri ght Upper Arm] Pulse Oximetry 96 95 95 Oxygen Delivery Me thod Room Air Room Air Room Air Oxygen Flow Rate 02/12/24 03:00 02/12/24 07:00 02/12/24 07:00 Temperature 97.9 F Pulse Rate [Pulse Oximeter] Pulse Rate [Right Pulse Oximeter] 67 Pulse Rate [Right Radial] 62 Respiratory Rate 18 18 18 Blood Pressure [Ri ght Arm] 185/69 H Blood Pressure [Ri ght Upper Arm] Pulse Oximetry 95 92 Oxygen Delivery Me thod Room Air Room Air Oxygen Flow Rate 02/12/24 07:00 Temperature 97.6 F Pulse Rate [Pulse Oximeter] Pulse Rate [Right Pulse Oximeter] 67 Pulse Rate [Right Radial] Respiratory Rate 18 Blood Pressure [Ri ght Arm] 164/73 H Blood Pressure [Ri ght Upper Arm] Pulse Oximetry 92 Oxygen Delivery Me thod Room Air Oxygen Flow Rate Labs Labs: Laboratory Results - last 24 hr 02/11/24 02/11/24 02/11/24 17:45 17:45 21:44 WBC 15.74 H RBC 3.94 L Hgb 11.1 L Cancelled 10.7 L Hct 35.5 MCV 90 MCH 28 MCHC 31 L RDW Coeff of Aditi Plt Count 261 Neut % (Auto) Lymph % (Auto) [place] % (Auto) Eos % (Auto) Baso % (Auto) Neut # (Auto) Lymph # (Auto) [place] # (Auto) Eos # (Auto) Baso # (Auto) Abs Immat Gran (auto) Imm/Tot Granulo (auto) INR 2.53 H Sodium 133 L Potassium 4.9 Chloride 106 Carbon Dioxide 26 Anion Gap 1 L BUN 29 Creatinine 0.7 Estimated Creat Clear 49.12 Estimated GFR 95 Glucose 249 H Hemoglobin A1c Lactate 0.9 Calcium 8.5 Total Bilirubin 0.7 AST 32 ALT 23 Alkaline Phosphatase 85 C-Reactive Protein < 0.5 L Total Protein 5.9 L Albumin 3.1 L TSH 02/12/24 06:10 WBC 11.56 H RBC 3.55 L Hgb 10.0 L Hct 32.1 L MCV 90 MCH 28 MCHC 31 L RDW Coeff of Aditi 14.4 Plt Count 270 Neut % (Auto) 72.4 H Lymph % (Auto) 14.8 L [place] % (Auto) 10.6 Eos % (Auto) 1.7 Baso % (Auto) 0.3 Neut # (Auto) 8.40 H Lymph # (Auto) 1.70 [place] # (Auto) 1.20 H Eos # (Auto) 0.20 Baso # (Auto) 0.00 Abs Immat Gran (auto) 0.00 Imm/Tot Granulo (auto) 0.2 INR 2.88 H Sodium 134 L Potassium 4.0 Chloride 104 Carbon Dioxide 27 Anion Gap 3 L BUN 31 H Creatinine 0.8 Estimated Creat Clear 49.12 Estimated GFR 81 Glucose 244 H Hemoglobin A1c 9.3 H Lactate Calcium 8.5 Total Bilirubin AST ALT Alkaline Phosphatase C-Reactive Protein 0.6 Total Protein Albumin TSH 1.970
[2024-02-12 11:00] VITALS: BP 142/49; PULSE 68; RESP 18; TEMP 36.5; O2SAT 93
--- NOTE | 2024-02-12 12:11 | CRLHL7_ITS ---
For Patients: As a result of the Cures Act, medical imaging exams and procedure reports are released immediately into your electronic medical record. You may view this report before your referring provider. If you have questions, please contact your health care provider. Indication: Left humerus fracture Technique: Left humerus radiographs, two views Comparison: None. Findings: Bones: Spiral fracture of the humeral shaft with mild apex lateral angulation. Joint spaces: Unremarkable. Soft tissues: Soft tissue swelling surrounding the humerus. Impression: Spiral fracture of the humeral shaft mild apex lateral angulation. Dictated by Jinny Cueto MD @ 02/12/2024 2:17:59 PM (Electronically Signed)
--- NOTE | 2024-02-12 12:16 | NUTR.NU ---
RDN with nutrition screen for diabetic diet. Patient admitted s/p fall with humeral fracture and hematoma. 02/12/24: Hgb A1C 9.3. Past medical history including, but not limited to insulin dependent diabetes mellitus. Patient lives with daughter and . Patient declined verbal education for designated caregiver and will pass along the handout provided.Diabetic diet education provided. Discussed basics of carbohydrate counting including sources of carbohydrates, serving sizes, and label reading. Discussed using the plate method for carbohydrate-controlled, balanced meals that include ? plate non-starchy vegetables, ? plate protein, and 3-4 servings of carbohydrates per meal (fruit, whole grains, legumes, milk, yogurt) and 1-2 per snack. Handouts provided to support discussion. RDN contact information provided and encouraged patient to call with questions. RDN to follow up as needed.
[2024-02-12 14:31] VITALS: BP 149/90; PULSE 67; RESP 16; TEMP 36.4; O2SAT 93
[2024-02-12 16:13] LABS: Hemoglobin* 10.5 gm/dL (12.0-16.0)
--- NOTE | 2024-02-12 16:51 | PM.DS1 ---
DS: Providers Provider Date Seen: 02/12/24 Date of admission: 02/11/24 16:23 Primary care physician: Hilda Cheema MD Admitting Clinician: Vaughn Lyles MD Consults: 02/11/24 17:31 Consult to Physician [CONS] Routine Comment: Consulting Provider: Jaquan Begum Has provider been notified: Yes 02/12/24 09:29 Consult to Occupational Therapy [CONS] Routine Comment: Reason(s) for OT Consult:: Evaluate and Treat Any Restrictions?:: No Restrictions Consult to Physical Therapy [CONS] Routine Comment: Reason(s) for PT Consult:: Evaluate and Treat Any Restrictions?:: No Restrictions Attending Physician on discharge: Vaughn Lyles MD Date of Discharge: 02/12/24 DS: Diagnosis Discharge Diagnosis (1) Humeral fracture: Status: Acute Problem details: - left proximal comminuted humerus fracture status post reduction 02/11/2024 - orthopedic consultation with Dr. Begum obtained, who on 02/12/24 indicates that efforts to stabilize the fracture non-surgically at [facility] have been unsuccessful and that she warrants surgical intervention and stabilization which he is not capable of providing, hence, recommends transfer to a tertiary care facility that can provide her with the level of care that she warrants. (2) Hematoma: Status: Acute Problem details: - acute hematoma at site of left proximal humerus fracture - monitor hemoglobin while in hospital, anticoagulated - baseline Hg 11, with Hg 10 on 02/12/24 (3) Anemia: Status: Acute Problem details: - chronic, normocytic, unclear etiology, receiving outpatient iron infusions with PCP - continue oral iron supplementation d/c - reassuring colonoscopy 01/[address] Ritter - baseline Hg 11, with Hg 10 on 02/12/24 (4) Anticoagulated with warfarin: Status: Acute Problem details: - for underlying paroxysmal atrial fibrillation, INR goal of 2-3 - HOLDING Warfarin as of 02/10 as the need for surgical intervention unclear at this time (5) Paroxysmal atrial fibrillation: Status: Acute Problem details: - thought to be cause of previous embolic stroke - chronically anticoagulated with warfarin with INR goal of 2-3 - carvedilol for rate control (6) Ataxia: Status: Acute Problem details: - noted since previous CVA about 10 years ago, thought to be embolic from paroxysmal atrial fibrillation - ordinarily uses walker for safe ambulation, but unable to use walker since left humerus fracture 02/11/24 although can help with transfers and ambulation with assist of 1 (7) Gait instability: Status: Acute Problem details: - baseline unstable gait with ataxia since stroke about 10 years ago - ordinarily uses walker or cane or furniture for stability, but now with new left humerus fracture ability to ambulate safely needs to be reassessed - PT and OT consultations ordered (8) Insulin dependent diabetes mellitus: Status: Acute Problem details: - A1C 9.3 on 02/12/24 - Accuchecks and SSI DS: Summary Hospital Course Hospital Course: Admission History of Present Illness: 68 year old woman presents to our emergency department today via EMS for assessment of left upper arm pain status post fall. Patient was in her usual state of health until she sustained a fall today. She took her shower per usual. After her shower she was attempting to step over side of the bathtub when she realized she was feeling weak. She decided to sit on side of the bathtub to see if she could gather some strength. As she sat there she started to lean over and slumped against the side of the shower wall with the left side of her body. She was unable to get up even with the help of her . They called EMS for help and brought her in for further assessment. She did not lose any consciousness at all. Does not have any other pain aside from the left upper arm and shoulder discomfort that she has had since she slumped over in the shower. No prodrome will symptoms. Acknowledges long-standing ataxia status post stroke. It is more difficult for her to walk because of this ataxia. She has noticed some of this while sitting as well. This is not any different than usual at this time. No recent fever, rigors, diaphoresis, or any other illness. No recent travel, trauma, or blood loss of any sort. Acknowledges chronic low back pain and right knee pain. This is not any different now compared to prior to her fall in the shower. [facility] Emergency Department physician was able to partially reduce the comminuted fracture and placed splint and immobilizer on the patient. Orthopedic surgery initially thought this might be sufficient for the patient. On the afternoon of 02/12/2024 Orthopedic surgery change of mind and recommend that patient be transferred to a tertiary medical care facility for more definitive stabilization of this fracture surgically. Orthopedic surgeons at [facility] indicated that they are unable to carry out this stabilization here. I reviewed Orthopedic surgery recommendations with the patient. She is agreeable to attempt transfer. I called and spoke with Dr. Perrin, orthopedic surgeon, and Dr. Keita, hospitalist, and [facility]. They accepted patient in transfer. Status at Discharge Overall status at discharge: patient is not back to baseline Time Spent with Patient Time attestation: Total time spent providing and/or coordinating discharge services: Time spent: Greater than 30 minutes Exam Narrative: Exam Narrative: GEN: Alert and sitting comfortably in bedside chair HEENT: EOMIs bilaterally, no scleral icterus CV: RRR, blowing systolic murmur noted at left sternal border without radiation R: LCTA bilaterally without concerning wheezing Ext: LUE is splinted with normal peripheral pulses, sensation, and movement of L hand/fingers. + edema bilateral lower extremities, baseline and stable Skin: No concerning skin lesions or rashes on exposed skin Neuro: Normal peripheral pulses and sensation, no resting tremor Psych: Appropriate without agitation Const: Vital Signs, click to edit/add: Vital Signs - 24 hr 02/11/24 20:12 02/11/24 23:55 02/12/24 00:00 Temperature 97.5 F L 97.9 F Pulse Rate [Right Pulse Oximeter] Pulse Rate [Right Radial] 71 76 Respiratory Rate 18 18 18 Blood Pressure [Ri ght Arm] 168/65 H 155/80 H Pulse Oximetry 96 95 95 Oxygen Delivery Me thod Room Air Room Air Room Air 02/12/24 03:00 02/12/24 07:00 02/12/24 07:00 Temperature 97.9 F Pulse Rate [Right Pulse Oximeter] 67 Pulse Rate [Right Radial] 62 Respiratory Rate 18 18 18 Blood Pressure [Ri ght Arm] 185/69 H Pulse Oximetry 95 92 Oxygen Delivery Me thod Room Air Room Air 02/12/24 07:00 02/12/24 11:00 02/12/24 14:31 Temperature 97.6 F 97.7 F Pulse Rate [Right Pulse Oximeter] 67 68 67 Pulse Rate [Right Radial] Respiratory Rate 18 18 16 Blood Pressure [Ri ght Arm] 164/73 H 142/49 H Pulse Oximetry 92 93 Oxygen Delivery Me thod Room Air Room Air 02/12/24 14:31 12/26/24 14:31 Temperature 97.6 F Pulse Rate [Right Pulse Oximeter] 67 Pulse Rate [Right Radial] Respiratory Rate 16 16 Blood Pressure [Ri ght Arm] 149/90 H Pulse Oximetry 93 93 Oxygen Delivery Me thod Room Air Room Air DS: Data Data Completed and Pending Labs on day of discharge: Labs from last 24 hours 02/12/24 02/12/24 02/11/24 15:51 06:10 21:44 WBC 11.56 H RBC 3.55 L Hgb 10.5 L 10.0 L 10.7 L Hct 32.1 L MCV 90 MCH 28 MCHC 31 L RDW Coeff of Aditi 14.4 Plt Count 270 Neut % (Auto) 72.4 H Lymph % (Auto) 14.8 L [place] % (Auto) 10.6 Eos % (Auto) 1.7 Baso % (Auto) 0.3 Neut # (Auto) 8.40 H Lymph # (Auto) 1.70 [place] # (Auto) 1.20 H Eos # (Auto) 0.20 Baso # (Auto) 0.00 Abs Immat Gran (auto) 0.00 Imm/Tot Granulo (auto) 0.2 INR 2.88 H Sodium 134 L Potassium 4.0 Chloride 104 Carbon Dioxide 27 Anion Gap 3 L BUN 31 H Creatinine 0.8 Estimated Creat Clear 49.12 Estimated GFR 81 Glucose 244 H Hemoglobin A1c 9.3 H Lactate Calcium 8.5 Total Bilirubin AST ALT Alkaline Phosphatase C-Reactive Protein 0.6 Total Protein Albumin TSH 1.970 02/11/24 02/11/24 17:45 17:45 WBC 15.74 H RBC 3.94 L Hgb Cancelled 11.1 L Hct 35.5 MCV 90 MCH 28 MCHC 31 L RDW Coeff of Aditi Plt Count 261 Neut % (Auto) Lymph % (Auto) [place] % (Auto) Eos % (Auto) Baso % (Auto) Neut # (Auto) Lymph # (Auto) [place] # (Auto) Eos # (Auto) Baso # (Auto) Abs Immat Gran (auto) Imm/Tot Granulo (auto) INR 2.53 H Sodium 133 L Potassium 4.9 Chloride 106 Carbon Dioxide 26 Anion Gap 1 L BUN 29 Creatinine 0.7 Estimated Creat Clear 49.12 Estimated GFR 95 Glucose 249 H Hemoglobin A1c Lactate 0.9 Calcium 8.5 Total Bilirubin 0.7 AST 32 ALT 23 Alkaline Phosphatase 85 C-Reactive Protein < 0.5 L Total Protein 5.9 L Albumin 3.1 L TSH Imaging Left humerus x-ray: Attestation: I have reviewed the pertinent imaging results. Radiologist's impression: Initial x-ray 02/11/2024: Acute comminuted and displaced fracture of the proximal-mid shaft of humerus without adjacent soft tissue swelling. Post reduction x-ray 02/11/2024: Redemonstrated acute displaced comminuted fracture of the left humeral shaft, improved alignment of the fracture fragments status post reduction. No new fractures identified. X-ray on morning of 02/12/2024: Spiral fracture of the humeral shaft mild apex lateral angulation. Discharge Plan Discharge Disposition: [facility] Discharge Location: [facility] Date of Admission: 02/11/24 16:23 Attending Provider on Discharge: Vaughn Lyles Primary Care Provider: Hilda Cheema Condition: Stable Discharge Orders: Transfer of Care to Other Hospital (ORDER); Ordered 02/12/24 Ordered By: Vaughn Lyles Additional Instructions: Usual warfarin dose is 6 mg po daily, except 4 mg on Sundays, to maintain INR 2-3 due to paroxysmal atrial fibrillation and h/o cardioembolic stroke 10 years ago. Discharge Comments: Patient understands her recovery from this trauma and surgical repair will be prolonged at best, necessitating SNF level of care for an indefinite period of time. Oxygen: No Urinary Catheter: No Services not available here: Tertiary level of orthopedic services and support services not available here
--- NOTE | 2024-02-12 18:55 | PC.NURSE ---
End of shift: Patient alert and oriented. VSS. RA. tolerating a therapeutic diet. Patient will be transferred to [facility] for surgery of L Humerus. Nurse to Nurse given to ZHANG Moraes. Patient will be going to [place] [id number].
== END 2024-02-12 19:14 | disposition short-term general hospital (02) ==
LOC: ED 15:55 → MEDSURG 16:23
PROVIDERS: Admitting Provider Internal Medicine; Emergency Provider Family Medicine; PCP Family Medicine; Visit Provider Internal Medicine
DX: S42.352A Displaced comminuted fracture of shaft of humerus, left arm, initial encounter for closed fracture (principal); S40.022A Contusion of left upper arm, initial encounter; M79.622 Pain in left upper arm; W19.XXXA Unspecified fall, initial encounter; R27.0 Ataxia, unspecified; D64.9 Anemia, unspecified; I48.0 Paroxysmal atrial fibrillation; Z79.01 Long term (current) use of anticoagulants; E11.9 Type 2 diabetes mellitus without complications; Z79.4 Long term (current) use of insulin; Z79.82 Long term (current) use of aspirin
CPT/HCPCS: 29105; 36415; 73060; 80048; 80053; 81001; 82962; 83036; 83605; 84443; 85018; 85025; 85027; 85610; 86140; 87086; 93005; 96372; 96374; 96375; 97116; 97161; 97165; 97530; 97535; 99156; 99284; 99285; A9270; G0378; J1171; J1815; J1885; J2704; J3010

== ENCOUNTER 2024-02-12 19:10 | Outpatient (CLI) | payer OTHER, SELFPAY | END 2024-02-12 19:11 | disposition home or self-care (01) | LOC: AMB 02-15 09:29 | PROVIDERS: PCP Family Medicine; Visit Provider Emergency Medicine | DX: S42.302A Unspecified fracture of shaft of humerus, left arm, initial encounter for closed fracture (principal) | CPT/HCPCS: A0425; A0428 ==

== ENCOUNTER 2024-03-12 20:04 | Outpatient (CLI) | payer OTHER, SELFPAY | END 2024-03-12 20:05 | disposition home or self-care (01) | LOC: AMB 03-21 07:29 | PROVIDERS: PCP Family Medicine; Visit Provider Family Medicine | DX: R53.1 Weakness (principal) | CPT/HCPCS: A0998 ==

== ENCOUNTER 2024-03-17 20:19 | Outpatient (CLI) | payer OTHER, SELFPAY | END 2024-03-17 20:20 | disposition home or self-care (01) | LOC: AMB 03-22 13:49 | PROVIDERS: PCP Family Medicine; Visit Provider Emergency Medicine | DX: R11.2 Nausea with vomiting, unspecified (principal); R19.7 Diarrhea, unspecified | CPT/HCPCS: A0425; A0427 ==

== ENCOUNTER 2024-03-17 21:08 | Observation (INO) | payer OTHER, SELFPAY ==
--- OUTSIDE RECORDS SUMMARY | 2024-03-17 21:10 | XMS_ITS | Continuity of Care Document ---
Author Organization [facility] Address [address] [place] [address] [id number] Care Team Providers Care Interactive Media Designer Name Role Phone Georgina Jane MD Attending Physician [phone] Medications Medication Frequency Instructions Diagnosis Start Date End Date Last Administered acetaminophen 500 mg tablet Every 6 Hours - PRN 1,000 mg, oral, Every 6 Hours - PRN, for headache, pain or temp >101.5F for mild pain max dose 4000mg in 24 hrs. N.O. Non-Pharmacolog ical Interventions: 1=Warm blanket 2=Re-position 3=Ice pack 4=Warm pack. R52 : Pain, unspecified 025 02/28/2024 04:32 PM amlodipine 10 mg tablet Once A Day 10 mg, oral, Once A Day I10 : Essential (primary) hypertension 025 03/01/2024 08:32 AM aspirin 81 mg tablet,chewable Once A Day 81 mg, oral, Once A Day, Monitor for bruising/bleedi ng, notify MD/COMPUTER EDUCATION TEACHER of concerns. Z95.2 : Presence of prosthetic heart valve 025 03/01/2024 08:32 AM atorvastatin 40 mg tablet Once A Day 40 mg, oral, Once A Day E78.2 : Mixed hyperlipidemia 03/01/2024 08:32 AM carvedilol 12.5 mg tablet Twice A Day 12.5 mg, oral, Twice A Day, with meals I10 : Essential (primary) hypertension 03/01/2024 08:32 AM coenzyme Q10 200 mg capsule Once A Day 200 mg, oral, Once A Day E78.00 : Pure hypercholesterol emia, unspecified 03/01/2024 08:32 AM fluoxetine 10 mg capsule Once A Day 10 mg, oral, Once A Day, Monitor for side effects, notify MD/COMPUTER EDUCATION TEACHER of concerns. 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 furosemide 40 mg tablet Once A Day 40 mg, oral, Once A Day Z95.2 : Presence of prosthetic heart valve 03/01/2024 08:32 AM insulin aspart U-100 100 unit/mL (3 mL) insulin pen With Meals Per Sliding Scale, subcutaneous, With Meals, If Blood Sugar is 150 to 199, give 2 Units.If Blood Sugar is 200 to 249, give 4 Units.If Blood Sugar is 250 to 299, give 6 Units.If Blood Sugar is 300 to 349, give 8 Units.If Blood Sugar is 350 to 399, give 10 Units.If Blood Sugar is greater than 399, give 12 Units.If Blood Sugar is greater than 399, call MD., Don't give corrective dose for PRN, post-prandial or nocturnal glucose checks unless ordered blood Glucose <70 see hypoglycemia protocol 70-149-no insulin, give prandial insulin, if ordered 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 02/29/2024 07:39 PM Lantus Solostar U-100 Insulin (insulin glargine) 100 unit/mL (3 mL) insulin pen Once A Day 30 units, subcutaneous, Once A Day, before bedtime 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 025 02/29/2024 09:36 PM lidocaine 4 % adhesive patch,medicated Twice A Day 1 patch, topical, Twice A Day, Apply to intact skin to cover most painful area for max 12 hr per 24 hr period R52 : Pain, unspecified 025 02/29/2024 09:36 PM lisinopril 40 mg tablet Once A Day 40 mg, oral, Once A Day I10 : Essential (primary) hypertension 025 03/01/2024 08:32 AM Miralax (polyethylene glycol 3350) 17 gram/dose powder Once A Day - PRN 17 g, oral, Once A Day - PRN, N.O. Non-Pharmacolog ical Interventions 1=Additional fluids 2=Prune Juice 3=Increase exercise K59.00 : Constipation, unspecified 025 oxycodone 5 mg tablet Every 4 Hours - PRN 5 mg, oral, Every 4 Hours - PRN, for severe pain. N.O. Non-Pharmacolog ical Interventions: 1=Warm blanket 2=Re-position 3=Ice pack 4=Warm pack. keep separate from scheduled doses by 4 hours. R52 : Pain, unspecified 025 Senokot-S (sennosides-docu sate sodium) 8.6-50 mg tablet Twice A Day 1 tablet, oral, Twice A Day K59.00 : Constipation, unspecified 025 03/01/2024 08:32 AM oxycodone 5 mg tablet Every 4 Hours - PRN 5 mg, oral, Every 4 Hours - PRN, for severe pain. N.O. Non-Pharmacolog ical Interventions: 1=Warm blanket 2=Re-position 3=Ice pack 4=Warm pack. R52 : Pain, unspecified 025 2024 oxycodone 5 mg tablet Twice A Day 5 mg, oral, Twice A Day, x one week #10-escribed to A&E with AKASH info. R52 : Pain, unspecified 202403/01/2024 08:32 AM warfarin 3 mg tablet Once A Day 3.5 mg, oral, Once A Day, Monitor for bruising/bleedi ng notify MD/COMPUTER EDUCATION TEACHER of concerns, next INR 02/24/24 I48.0 : Paroxysmal atrial fibrillation 2024 warfarin 3 mg tablet Once A Day 3.5 mg, oral, Once A Day, Monitor for bruising/bleedi ng notify MD/COMPUTER EDUCATION TEACHER of concerns, next INR 02/24/24 I48.0 : Paroxysmal atrial fibrillation 202402/23/2024 09:57 PM warfarin 2.5 mg tablet Once A Day 2.5 mg, oral, Once A Day, TOTAL DOSE = 3.5 MG. Administer with 1 mg. I48.0 : Paroxysmal atrial fibrillation 202402/25/2024 06:46 PM warfarin 1 mg tablet Once A Day 1 mg., oral, Once A Day, TOTAL DOSE = 3.5 MG. Administer together with 2.5 mg. I48.0 : Paroxysmal atrial fibrillation 202402/25/2024 06:46 PM warfarin 5 mg tablet Once A Day 5 mg, oral, Once A Day, Monitor for bruising/bleedi ng, notify MD/COMPUTER EDUCATION TEACHER of concerns, next INR 03/01/24 I48.0 : Paroxysmal atrial fibrillation 202402/29/2024 04:26 PM Problems Code Type Problem ICD Code Effective Date Status ICD-10 Displaced spiral fra cture of shaft of humerus, left arm, subsequent encounter for fracture with routine healing S42.342D 02/23/2024 Active ICD-10 History of falling Z91.81 02/23/2024 Active ICD-10 Encounter for change or removal of surgical wound dressing Z48.01 02/23/2024 Active ICD-10 Hypertensive heart d isease with heart failure I11.0 02/23/2024 Active ICD-10 Chronic systolic (congestive) heart failure I50 .22 02/23/2024 Active ICD-10 Paroxysmal atrial fibrillation I48.0 02/22 Active ICD-10 Type 2 diabetes champ itus with diabetic polyneuropathy E11.42 02/23/2024 Active ICD-10 Pure hypercholesterolemia, unspecified E78.00 02/23/2024 Active ICD-10 Mixed hyperlipidemia E78.2 02/23/2024 Acti ve ICD-10 Ataxia, unspecified R27.0 02/23/2024 Activ e ICD-10 Depression, unspecified F32.A 02/23/2024 A ctive ICD-10 Essential (primary) hypertension I10 09/2024 Active ICD-10 Encounter for therap eutic drug level monitoring Z51.81 02/23/2024 Active ICD-10 Pain, unspecified R52 02/23/2024 Active ICD-10 Constipation, unspecified K59.00 02/23/2024 Active ICD-10 [facility] (current) use of anticoagulants Z79.0 1 02/23/2024 Active ICD-10 Encounter for screen ing for respiratory tuberculosis Z11.1 02/23/2024 Active ICD-10 Presence of prosthetic heart valve Z95.2 0 02/23/2024 Active ICD-10 Unsteadiness on feet R26.81 02/23/2024 Acti ve ICD-10 Personal history of transient ischemic attack (TIA), 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.73 02/23/2024 Active Current Allergies and Intolerances Category Substance Type Reaction Severity Begin Date Status Drug allergy phytonadione (vitami n K1) Allergy 02/23/2024 Active Drug allergy vitamin K2 Allergy 02/23/2024 Activ e Allergy to substance Pollen Extract Allergy 02/23/2024 Active Vital Signs Height: Date / Time Temperature Pulse (per minute) Respirations (per minute) Systolic BP (mmHg) Diastolic BP (mmHg) O2 Saturation (%) Weight BMI 2024 09:03 AM 97.4 F 78 18 151 76 93.0 2024 12:54 PM 233.5 lbs 2024 12:13 PM 97.2 F 73 18 146 88 93.0 2024 01:30 PM 233.6 lbs 2024 12:35 PM 97.4 F 76 18 141 79 93.0 2024 03:45 PM 97.5 F 67 18 150 69 90.0 2024 12:25 PM 228.2 lbs 2024 01:36 PM 98.8 F 70 18 166 76 94.0 2024 11:01 PM 97.3 F 71 18 166 62 92.0 2024 09:02 AM 97.6 F 76 18 138 52 92.0 2024 05:29 AM 97.7 F 78 17 178 80 2024 12:49 AM 97.7 F 68 17 182 81 90.0 2024 09:36 PM 97.3 F 63 18 142 72 93.0 2024 04:37 PM 90.0 Advance Directives Directive Note Full Code Insurance Providers Payer Policy type Group Name Group number Policy ID Address one [employer] Like Medicare Part A [id number] Phone: Fax: Part B Insurance - [employer] Like Medicare Part B [id number] Phone: Fax: Part A Coinsurance - Comm - Commercial Insurance [id number] Phone: Fax: Part B Coinsurance - Comm - Commercial Insurance [id number] Phone: Fax: Private Pay Private Phone: Fax: Immunizations Vaccine Repairer Hairspring Date Status Dose Series Complete COVID-19 Vaccine Baby World Language-[employer] 01/03/2022 Completed Ha ster 1 - Bivalent COVID-19 Vaccine Moderna 04/12/2020 Completed 2 COVID-19 Vaccine Moderna 03/15/2020 Completed 1 Pneumococcal Vaccine 05/01/2022 Completed Pneumococcal Vaccine 03/27/2021 Completed Tetanus Vaccine 05/29/2017 Completed Zoster Vaccine 12/15/2019 Completed 2 Yes Zoster Vaccine 11/16/2018 Completed 1 Procedures Not available for this record Results Name Date Time Positive/Negative Value Unit Range Blood Sugar 03/01/2024 08:32 AM 149.0 mg/dL Blood Sugar 02/29/2024 09:35 PM 177.0 mg/dL Blood Sugar 02/29/2024 07:38 PM 164.0 mg/dL Blood Sugar 02/29/2024 01:48 PM 210.0 mg/dL Blood Sugar 02/29/2024 09:04 AM 110.0 mg/dL Blood Sugar 02/28/2024 09:18 PM 255.0 mg/dL Blood Sugar 02/28/2024 06:28 PM 281.0 mg/dL Blood Sugar 02/28/2024 12:37 PM 201.0 mg/dL Blood Sugar 02/28/2024 09:13 AM 159.0 mg/dL Blood Sugar 02/27/2024 09:13 PM 222.0 mg/dL Blood Sugar 02/27/2024 05:22 PM 221.0 mg/dL Blood Sugar 02/27/2024 12:41 PM 208.0 mg/dL Blood Sugar 02/27/2024 09:10 AM 140.0 mg/dL Blood Sugar 02/26/2024 09:07 PM 274.0 mg/dL Blood Sugar 02/26/2024 05:43 PM 284.0 mg/dL Blood Sugar 02/26/2024 12:18 PM 247.0 mg/dL Blood Sugar 02/26/2024 07:56 AM 142.0 mg/dL Blood Sugar 02/25/2024 08:39 PM 325.0 mg/dL Blood Sugar 02/25/2024 06:25 PM 228.0 mg/dL Blood Sugar 02/25/2024 11:59 AM 239.0 mg/dL Blood Sugar 02/25/2024 09:28 AM 145.0 mg/dL Blood Sugar 02/24/2024 11:02 PM 284.0 mg/dL Blood Sugar 02/24/2024 09:04 PM 300.0 mg/dL Blood Sugar 02/24/2024 06:58 PM 284.0 mg/dL Blood Sugar 02/24/2024 12:28 PM 178.0 mg/dL Blood Sugar 02/24/2024 07:51 AM 157.0 mg/dL Blood Sugar 02/23/2024 09:37 PM 231.0 mg/dL Goals Goal Date Skin will remain intact through 90 days. 05/23/2024 Resident will regain ability to complete ADLs. 05/23/2024 Resident will return to prev ious level of health (prior to hospitalization) within 90 days 05/23/2024 Resident's pain will not baker it their ability to participate in ADLs, activities and therapies as ordered through 90 days. 05/23/2024 Will maintain highest level of visual ac uity 05/23/2024 Resident will maintain highest level of auditory acuity. 05/23/2024 Resident will maintain curre nt ability to communicate and understand others. 05/23/2024 I will understand my medical information with assistance from staff, my apparel trimmings sales representative and/or my family. 05/23/2024 Will remain safe and free from abuse thr ough 90 days. 05/24/2024 Resident will remain free from behaviora l symptoms for the next 90 days. 05/24/2024 Resident will maintain highest level of cognition for the next 90 days. 05/24/2024 Resident will exhibit fewer mood symptom s over the next 90 days. 05/24/2024 Establish discharge plan with resident a nd apparel trimmings sales representative. 05/24/2024 Social History Subject Status Smoking status Unknown if ever smok ed Encounters Admission Date Discharge Date Description MRN Visit Count 02/23/2024 14:46 LTPAC Admission [id number]
--- OUTSIDE RECORDS SUMMARY | 2024-03-17 21:11 | XMS_ITS | Clinical Summary ---
Author Organization [facility] [place] Address [address] [place] [address] Phone Care Team Providers Care Field Installer Name Role Phone Hilda Cheema MD Primary Care Provider [phone] Allergies Active Allergy Reactions Criticality Noted Date Comments Menatetrenone Anaphylaxis High 01/29/2022 Phytonadione Anaphylaxis High 04/12/2021 Unresponsive episode after receiving IV vit K - suspected anaphylactic reaction, responding to epinephrine...Michael Garcia MD 04/12/2021 6:50 PM. Medications insulin aspart (NovoLOG FLEXPEN) 100 UNIT/ML injection INJECT 12-14 UNITS WITH MEALS AND SLIDING SCALE, ABOUT 45 UNITS PER DAY 03/28/2023 Active furosemide (LASIX) 40 MG tablet Take 40 mg by mouth in the morning. 11/11/2022 Active FLUoxetine (PROzac) 10 MG capsule Take 10 mg by mouth in the morning. 12/20/2022 Active warfarin (COUMADIN) 2 MG tablet Take by mouth 4 mg (2 mg x 2) every Fri; 6 mg (2 mg x 3) all other days in the evening OR as directed 03/19/2023 Active lisinopril 40 MG tablet Take 40 mg by mouth 1 (one) time each day 03/28/2023 Active insulin glargine (Lantus SoloStar) 100 UNIT/ML injection Inject 30 Units under the skin every night 04/25/2023 Active coenzyme Q-10 200 MG capsule Take 200 mg by mouth 1 (one) time each day 03/04/2016 Active atorvastatin (LIPITOR) 40 MG tablet Take 40 mg by mouth 1 (one) time each day 01/13/2023 Active aspirin 81 MG chewable tablet Chew 1 Tablet (81 mg) by mouth once daily with a meal. 05/26/2021 Active amLODIPine (NORVASC) 10 MG tablet Take 10 mg by mouth 1 (one) time each day 04/25/2023 Active cholecalciferol (VITAMIN D-3) 25 MCG (1000 UT) capsule Take 1,000 Units by mouth 1 (one) time each day 04/20/2015 Active carvedilol (COREG) 6.25 MG tablet Take 1 Tablet (6.25 mg) by mouth two times daily with meals. TAKE 1 TABLET IN THE MORNING AND 1 TABLET IN THE EVENING WITH MEALS 11/11/2022 Active Active Problems Problem Noted Date Diagnosed Date Knee joint painful on movement <Right side> 10/2023 Assessment & Plan (05/27/2023 7:57 PM CDT): Severe and worsening. Patient feels it is from degenerative joint disease. If total knee replacement is indicated and offered, she may certainly proceed anytime from strictly a renal perspective. Obviously preoperative management will be challenging in view of this patient's requirement for systemic anticoagulation. Type 2 diabetes mellitus wit h diabetic chronic kidney disease 05/26/2023 Overview (05/26/2023): + Diabetic retinopathy Assessment & Plan (05/26/2023 5:51 PM CDT): Most recent A1c values at 13.8 in October 2022 and 12.3 and March 2023. Chronic systolic congestive heart failure 2023 Overview (05/26/2023): Echocardiogram from October 2021: EF 58% with mildly enlarged RV size, normal functioning bioprosthesis AVR. History of aortic valve replacement 05/26/2023 History of pulmonary embolis m on long-term anticoagulation therapy 05/26/2023 Patent foramen ovale 05/26/2023 Overview (05/26/2023): With history of stroke. Paroxysmal atrial fibrillation 05/26/2023 Personal history of stroke 05/26/2023 Moderate cognitive impairment 05/26/2023 Assessment & Plan (05/26/2023 5:48 PM CDT): Throughout her [facility] chart other providers have questioned her ability to care for herself not to mention administer her own medications including insulin. Stage 3a chronic kidney disease 05/26/2023 Overview (05/26/2023): Baseline creatinine approximately 0.8-0.9 range for several years, stretching back to 2012. CT scan abdomen and pelvis 2021: Both kidneys present with no hydronephrosis. Longstanding proteinuria first identified in January 2006 at 244 mg/g, 281 mg/g in April 2011, 316 mg/g in April 2012, 199 mg/g in June 2013, 405 mg/g in October 2015, 730 mg/g in March 2020 and 2677 mg/g in March 2023. Assessment & Plan (05/27/2023 7:58 PM CDT): Normal SPEP in May 2022. Further workup unnecessary. Patient has a high likelihood of diabetic glomerulosclerosis here. The edl valle right now will be to continue current medication regimen including JOSE FRANCISCO inhibitor. Although the patient has diabetes mellitus type 2, I would be very wary of prescribing any new medications for this patient since her cognitive capabilities are deteriorating over the last several months. Once/if her diabetic control as well as assurance that her medications are in fine order, we can certainly consider the addition of a sodium glucose transporter-2 inhibitor class medications as well as considering the addition of a nonsteroidal mineralocorticoid receptor antagonist. We will tentatively plan to see her again in 4 months. 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 Based on patient's memory deficits, higher than average risk for falls with severe right knee degenerative joint disease, I would not treat any more aggressively since she is at a higher than average risk for falls. Anemia 04/12/2021 Vitamin D deficiency 07/02/2013 Immunizations Name Administration Dates Next Due Influenza Vaccine, Quadrivalent, Adjuvanted 10/19,01/03/2022 Pneumococcal Conjugate Pcv 20 05/01/2022 Family History Medical History Relation Comments Cancer Brother colon Heart disease Father Hypertension Father Stroke Father Cancer Mother colon Cirrhosis Mother Diabetes Mother Relation Status Comments Brother Father Mother Social History Tobacco Use Types Packs/Day Years Used Date Smoking Tobacco: Former Cigarettes 0.5 15 1 995 - 2010 Smokeless Tobacco: Never Tobacco Cessation:Counseling Given: Not Answered Alcohol Use Standard Drinks/Week Comments Not Currently 0 (1 standard drink = 0.6 oz pur e alcohol) Comments Unknown Sex and Gender Information Value Date Recorded Sex Assigned at Not on file Legal Sex Female 3:16 PM EST Gender Identity Not on file Sexual Orientation Not on file Last Filed Vital Signs Vital Sign Reading Time Taken Comments Blood Pressure 138/62 05/27/2023 2:33 PM CDT Pulse 71 05/27/2023 2:33 PM CDT Temperature - - Respiratory Rate - - Oxygen Saturation 94% 05/27/2023 2:33 PM CDT Inhaled Oxygen Concentration - - Weight 98.9 kg (218 lb) 05/27/2023 2:33 PM CDT Height 165.1 cm (5' 5) 05/27/2023 2:33 PM CDT Body Mass Index 36.28 05/27/2023 2:33 PM CDT Plan of Treatment Health Maintenance Due Date Last Done Comments Breast Cancer Screening 1955 Colorectal Cancer Screening: Annual FOBT 2005 Colorectal Cancer Screening: Colonoscopy 2005 Colorectal Cancer Screening: Sigmoidoscopy 2005 Diabetes: Pedal Pulse Checked 04/02/2023 Diabetes: Sensory Foot Exam 04/02/2023 Diabetes: Visual Foot Exam 04/02/2023 Diabetes: Hemoglobin A1C 06/19/2023 03/21/2023 Influenza Vaccine (#1) 2023 3, 01/03/2022, 11/27/2020, Additional history exists Diabetes: Ophthalmology Exam 04/27/2024 04/28/2023 Hepatitis B Vaccine Completed 03/25/2014, 08/16/2013, 06/29/2013 Pneumococcal Vaccine: 65+ Years Completed 3, 03/27/2021 Insurance [facility] MEDICARE Care Teams Field Installer Relationship Specialty Start Date End Date Hilda Cheema MD [address] [place] [address] PCP - General Family Medicine 04/07/23
--- OUTSIDE RECORDS SUMMARY | 2024-03-17 21:12 | XMS_ITS | Continuity of Care Document ---
Author Organization [facility] Address [address] [place] [address] Insurance Providers Payer Plan Claims Address Claims Phone Policy Number Group Number Relation Employer Guarantor Name Guarantor Guarantor Address Guarantor Phone [employer] [id number] [address] [address], [place] [address] tel:[phone] [id number] Chester Borrego [address] [place] [id number] [employer] A [employer] E PPO MR [address] [address], [facility] [place] [address] [id number] Self Nava Borrego [address] [place] [id number] [employer] [address] [address] [id number] Self Nava Borrego [address] [place] [id number] Problems Condition ICD9 code ICD10 code SNOMED code Start Date End Date S tatus Acute respiratory failure with hypoxia J96.01 02/23/2024 Active Essential (primary) hypertension I10 02/23/2024 Active Anemia, unspecified D64.9 02/23/2024 A ctive Anxiety disorder, unspecified F41.9 02/23/2024 Active Vitamin D deficiency, unspecified E55.9 02/23/2024 Active 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 02/23/2024 Active senior living (current) use of insulin Z79.4 02/23/2024 Active Edema, unspecified R60.9 03/03/2024 Ac tive Obesity, class 3 03/04/2024 Acti ve Acute respiratory failure with hypoxia J96.01 02/23/2024 Active Chronic systolic (congestive) heart failure I50.22 02/23/2024 Active Essential (primary) hypertension I10 02/23/2024 Active Paroxysmal atrial fibrillation I48.0 02/23/2024 Active Type 2 diabetes mellitus with diabetic polyneuropathy E11.42 02/23/2024 Active Pure hypercholesterolemia, unspecified E78.00 02/23/2024 Active Anemia, unspecified D64.9 02/23/2024 A ctive Depression, unspecified F32.A 02/23/2024 Active Anxiety disorder, unspecified F41.9 02/23/2024 Active Vitamin D deficiency, unspecified E55.9 02/23/2024 Active 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 02/23/2024 Active Presence of prosthetic heart valve Z95.2 02/23/2024 Active Personal history of transient ischemic attack (TIA), 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.73 02/23/2024 Active Encounter for therapeutic drug level monitoring Z51.81 02/23/2024 Act иван Results Test Value / Unit Interpretation Reference Ran Blood chemistry[[id number]] Glucose [Mass/volume] in Ser um or Plasma [2345-7] 108 mg/dL N Blood chemistry[[id number]] Glucose [Mass/volume] in Ser um or Plasma [2345-7] 181 mg/dL N Blood chemistry[[id number]] Glucose [Mass/volume] in Ser um or Plasma [2345-7] 226 mg/dL N Blood chemistry[[id number]] Glucose [Mass/volume] in Ser um or Plasma [2345-7] 165 mg/dL N Blood chemistry[[id number]] Glucose [Mass/volume] in Ser um or Plasma [2345-7] 131 mg/dL N Blood chemistry[[id number]] Glucose [Mass/volume] in Ser um or Plasma [2345-7] 225 mg/dL N Blood chemistry[[id number]] Glucose [Mass/volume] in Ser um or Plasma [2345-7] 202 mg/dL N Tuberculosis reaction wheal[ 30251-4] Tuberculosis reaction wheal [73161-3] See note NEG TB test Blood chemistry[[id number]] Glucose [Mass/volume] in Ser um or Plasma [2345-7] 143 mg/dL N Blood chemistry[[id number]] Glucose [Mass/volume] in Ser um or Plasma [2345-7] 81 mg/dL N Blood chemistry[] Glucose [Mass/volume] in Ser um or Plasma [2345-7] 216 mg/dL N Blood chemistry[] Glucose [Mass/volume] in Ser um or Plasma [2345-7] 332 mg/dL N Blood chemistry[] Glucose [Mass/volume] in Ser um or Plasma [2345-7] 166 mg/dL N Blood chemistry[] Glucose [Mass/volume] in Ser um or Plasma [2345-7] 128 mg/dL N Blood chemistry[] Glucose [Mass/volume] in Ser um or Plasma [2345-7] 227 mg/dL N Blood chemistry[] Glucose [Mass/volume] in Ser um or Plasma [2345-7] 194 mg/dL N Blood chemistry[] Glucose [Mass/volume] in Ser um or Plasma [2345-7] 182 mg/dL N Blood chemistry[] Glucose [Mass/volume] in Ser um or Plasma [2345-7] 93 mg/dL N Blood chemistry[] Glucose [Mass/volume] in Ser um or Plasma [2345-7] 225 mg/dL N Blood chemistry[] Glucose [Mass/volume] in Ser um or Plasma [2345-7] 163 mg/dL N Blood chemistry[] Glucose [Mass/volume] in Ser um or Plasma [2345-7] 143 mg/dL N Blood chemistry[] Glucose [Mass/volume] in Ser um or Plasma [2345-7] 143 mg/dL N Blood chemistry[] Glucose [Mass/volume] in Ser um or Plasma [2345-7] 223 mg/dL N Blood chemistry[[id number]] Glucose [Mass/volume] in Ser um or Plasma [2345-7] 154 mg/dL N Blood chemistry[] Glucose [Mass/volume] in Ser um or Plasma [2345-7] 117 mg/dL N Blood chemistry[[id number]] Glucose [Mass/volume] in Ser um or Plasma [2345-7] 110 mg/dL N Blood chemistry[] Glucose [Mass/volume] in Ser um or Plasma [2345-7] 178 mg/dL N Blood chemistry[] Glucose [Mass/volume] in Ser um or Plasma [2345-7] 158 mg/dL N Blood chemistry[] Glucose [Mass/volume] in Ser um or Plasma [2345-7] 153 mg/dL N Blood chemistry[] Glucose [Mass/volume] in Ser um or Plasma [2345-7] 153 mg/dL N Blood chemistry[] Glucose [Mass/volume] in Ser um or Plasma [2345-7] 130 mg/dL N Blood chemistry[] Glucose [Mass/volume] in Ser um or Plasma [2345-7] 222 mg/dL N Blood chemistry[] Glucose [Mass/volume] in Ser um or Plasma [2345-7] 160 mg/dL N Blood chemistry[] Glucose [Mass/volume] in Ser um or Plasma [2345-7] 155 mg/dL N Blood chemistry[] Glucose [Mass/volume] in Ser um or Plasma [2345-7] 146 mg/dL N Blood chemistry[[id number]] Glucose [Mass/volume] in Ser um or Plasma [2345-7] 246 mg/dL N Blood chemistry[] Glucose [Mass/volume] in Ser um or Plasma [2345-7] 186 mg/dL N Blood chemistry[[id number]] Glucose [Mass/volume] in Ser um or Plasma [2345-7] 127 mg/dL N Blood chemistry[[id number]] Glucose [Mass/volume] in Ser um or Plasma [2345-7] 119 mg/dL N Blood chemistry[[id number]] Glucose [Mass/volume] in Ser um or Plasma [2345-7] 290 mg/dL N Blood chemistry[[id number]] Glucose [Mass/volume] in Ser um or Plasma [2345-7] 158 mg/dL N Blood chemistry[] Glucose [Mass/volume] in Ser um or Plasma [2345-7] 172 mg/dL N Blood chemistry[[id number]] Glucose [Mass/volume] in Ser um or Plasma [2345-7] 108 mg/dL N Blood chemistry[] Glucose [Mass/volume] in Ser um or Plasma [2345-7] 139 mg/dL N Blood chemistry[] Glucose [Mass/volume] in Ser um or Plasma [2345-7] 129 mg/dL N INR in Platelet poor plasma by Coagulation assay[6081-6] INR in Platelet poor plasma by Coagulation assay [8891-6] 3.1 0 N Blood chemistry[] Glucose [Mass/volume] in Ser um or Plasma [2345-7] 200 mg/dL N Blood chemistry[] Glucose [Mass/volume] in Ser um or Plasma [2345-7] 149 mg/dL N Blood chemistry[] Glucose [Mass/volume] in Ser um or Plasma [2345-7] 177 mg/dL N Blood chemistry[] Glucose [Mass/volume] in Ser um or Plasma [2345-7] 164 mg/dL N Blood chemistry[] Glucose [Mass/volume] in Ser um or Plasma [2345-7] 210 mg/dL N Blood chemistry[] Glucose [Mass/volume] in Ser um or Plasma [2345-7] 110 mg/dL N Blood chemistry[] Glucose [Mass/volume] in Ser um or Plasma [2345-7] 255 mg/dL N Blood chemistry[] Glucose [Mass/volume] in Ser um or Plasma [2345-7] 281 mg/dL N Blood chemistry[] Glucose [Mass/volume] in Ser um or Plasma [2345-7] 201 mg/dL N Blood chemistry[] Glucose [Mass/volume] in Ser um or Plasma [2345-7] 159 mg/dL N Blood chemistry[] Glucose [Mass/volume] in Ser um or Plasma [2345-7] 222 mg/dL N Blood chemistry[] Glucose [Mass/volume] in Ser um or Plasma [2345-7] 221 mg/dL N Blood chemistry[] Glucose [Mass/volume] in Ser um or Plasma [2345-7] 208 mg/dL N Blood chemistry[] Glucose [Mass/volume] in Ser um or Plasma [2345-7] 140 mg/dL N Blood chemistry[[id number]] Glucose [Mass/volume] in Ser um or Plasma [2345-7] 274 mg/dL N Blood chemistry[[id number]] Glucose [Mass/volume] in Ser um or Plasma [2345-7] 284 mg/dL N Blood chemistry[[id number]] Glucose [Mass/volume] in Ser um or Plasma [2345-7] 247 mg/dL N Blood chemistry[[id number]] Glucose [Mass/volume] in Ser um or Plasma [2345-7] 142 mg/dL N Blood chemistry[[id number]] Glucose [Mass/volume] in Ser um or Plasma [2345-7] 325 mg/dL N Blood chemistry[[id number]] Glucose [Mass/volume] in Ser um or Plasma [2345-7] 228 mg/dL N Blood chemistry[[id number]] Glucose [Mass/volume] in Ser um or Plasma [2345-7] 239 mg/dL N Blood chemistry[[id number]] Glucose [Mass/volume] in Ser um or Plasma [2345-7] 145 mg/dL N Blood chemistry[[id number]] Glucose [Mass/volume] in Ser um or Plasma [2345-7] 284 mg/dL N Blood chemistry[[id number]] Glucose [Mass/volume] in Ser um or Plasma [2345-7] 300 mg/dL N Blood chemistry[[id number]] Glucose [Mass/volume] in Ser um or Plasma [2345-7] 284 mg/dL N Blood chemistry[[id number]] Glucose [Mass/volume] in Ser um or Plasma [2345-7] 178 mg/dL N Blood chemistry[[id number]] Glucose [Mass/volume] in Ser um or Plasma [2345-7] 157 mg/dL N Blood chemistry[[id number]] Glucose [Mass/volume] in Ser um or Plasma [2345-7] 231 mg/dL N Allergies, adverse reactions, alerts No known allergies and adverse reactions Medications Medication Instructions Route Dosage Frequency Start Date Stop Date Indications Status Lasix (furosemide) 20 mg tablet (Lasix (furosemide)) 1 tab, oral, Once A Day oral 1.0 1.0 d 025 2024 Active warfarin 4 mg tablet (warfarin) 1 tablet, oral, Once A Day oral 1.0 1.0 d 025 2024 Active warfarin 4 mg tablet (warfarin) 4 mg, oral, Once A Day on Fri, Fri, Katrina oral 1.0 1.0 d 025 2024 Paroxysmal atrial fibrillation Active Lasix (furosemide) 20 mg tablet (Lasix (furosemide)) 1 tab, oral, Once A Day oral 1.0 1.0 d 025 2024 Active warfarin 4 mg tablet (warfarin) 1 tablet, oral, Once A Day, 1 tablet oral 1.0 1.0 d 025 2024 Paroxysmal atrial fibrillation Active Tamiflu (oseltamivir) 75 mg capsule (Tamiflu (oseltamivir) ) 75 mg, oral, Twice A Day oral 1.0 12.0 h 025 2024 Active warfarin 5 mg tablet (warfarin) 1 tab, oral, Once A Day oral 1.0 1.0 d 025 2024 Paroxysmal atrial fibrillation Active warfarin 5 mg tablet (warfarin) 5 mg, oral, Once A Day oral 1.0 1.0 d 025 2024 Paroxysmal atrial fibrillation Active Lasix (furosemide) 20 mg tablet (Lasix (furosemide)) 20 mg, oral, Once A Day oral 1.0 1.0 d 025 2024 Edema, unspecified Active warfarin 4 mg tablet (warfarin) 1 tab, oral, Once A Day oral 1.0 1.0 d 025 2024 Paroxysmal atrial fibrillation Active warfarin 5 mg tablet (warfarin) 5mg, oral, Once A Day on Mon, Wed, Fri, Sat oral 1.0 1.0 d 025 2024 Paroxysmal atrial fibrillation Active warfarin 4 mg tablet (warfarin) 4mg, oral, Once A Day on Fri, Fri, Katrina oral 1.0 1.0 d 025 2024 Active warfarin 4 mg tablet (warfarin) 4mg, oral, Once A Day on Fri, Fri, Katrina oral 1.0 1.0 d 025 2024 Paroxysmal atrial fibrillation Active warfarin 4 mg tablet (warfarin) 4 mg, oral, Once A Day, Monitor for bruising/bleedi ng. Notify MD/BAIT MAN of concerns. Next INR date on 03/17/2024 oral 1.0 1.0 d 025 2024 Paroxysmal atrial fibrillation Active Lasix (furosemide) 20 mg tablet (Lasix (furosemide)) 1 tab, oral, Once A Day oral 1.0 1.0 d 025 2024 Active Lasix (furosemide) 20 mg tablet (Lasix (furosemide)) 1 tab, oral, Once A Day oral 1.0 1.0 d 025 2024 Active Lasix (furosemide) 20 mg tablet (Lasix (furosemide)) 20 mg, oral, Once A Day oral 1.0 1.0 d 025 2024 Edema, unspecified Active oxycodone 5 mg tablet (oxycodone) 5 mg, oral, Twice A Day, x one week #10-escribed to A&E with AKASH info. oral 1.0 12.0 h 025 2024 Pain, unspecified Active Tamiflu (oseltamivir) 75 mg capsule (Tamiflu (oseltamivir) ) 75 mg, oral, Twice A Day oral 1.0 12.0 h 025 2024 Active warfarin 3 mg tablet (warfarin) 3.5 mg, oral, Once A Day, Monitor for bruising/bleedi ng notify MD/BAIT MAN of concerns, next INR 02/24/24 oral 1.0 1.0 d 025 2024 Paroxysmal atrial fibrillation Active warfarin 2.5 mg tablet (warfarin) 2.5 mg, oral, Once A Day, TOTAL DOSE = 3.5 MG. Administer with 1 mg. oral 1.0 1.0 d 025 2024 Paroxysmal atrial fibrillation Active warfarin 1 mg tablet (warfarin) 1 mg., oral, Once A Day, TOTAL DOSE = 3.5 MG. Administer together with 2.5 mg. oral 1.0 1.0 d 2024 Paroxysmal atrial fibrillation Active warfarin 5 mg tablet (warfarin) 5 mg, oral, Once A Day, Monitor for bruising/bleedi ng, notify MD/BAIT MAN of concerns, next INR 03/01/24 oral 1.0 1.0 d 025 2024 Paroxysmal atrial fibrillation Active warfarin 4 mg tablet (warfarin) 4 mg, oral, Once A Day on Fri, Fri, Katrina oral 1.0 1.0 d 025 2024 Paroxysmal atrial fibrillation Active warfarin 5 mg tablet (warfarin) 5 mg, oral, Once A Day oral 1.0 1.0 d 025 2024 Paroxysmal atrial fibrillation Active warfarin 5 mg tablet (warfarin) 5mg, oral, Once A Day on Fri, Fri, Fri, Sat oral 1.0 1.0 d 025 2024 Paroxysmal atrial fibrillation Active warfarin 4 mg tablet (warfarin) 4mg, oral, Once A Day on Fri, Fri, Katrina oral 1.0 1.0 d 025 2024 Paroxysmal atrial fibrillation Active warfarin 4 mg tablet (warfarin) 4 mg, oral, Once A Day, Monitor for bruising/bleedi ng. Notify MD/BAIT MAN of concerns. Next INR date on 03/17/2024 oral 1.0 1.0 d 025 2024 Paroxysmal atrial fibrillation Active Vital Signs Date Vital Result Comment 02/27/2024 01:30 PM Body mass index (BMI) [Ratio] 0.0 kg/m2 Body Weight 233.6 [lb_av] Body Mass Index 38.87 kg/m2 02/27/2024 12:35 PM Temperature 97.4 [degF] Oxygen Saturation 93 % Respiratory Rate 18 /min Heart Rate 76 /min Blood Pressure Systolic 141 mm[Hg] Blood Pressure Diastolic 79 mm[Hg] 02/28/2024 12:13 PM Temperature 97.2 [degF] Oxygen Saturation 93 % Respiratory Rate 18 /min Heart Rate 73 /min Blood Pressure Systolic 146 mm[Hg] Blood Pressure Diastolic 88 mm[Hg] 02/28/2024 12:54 PM Body mass index (BMI) [Ratio] 0.0 kg/m2 Body Weight 233.5 [lb_av] Body Mass Index 38.85 kg/m2 02/29/2024 09:03 AM Temperature 97.4 [degF] Oxygen Saturation 93 % Respiratory Rate 18 /min Heart Rate 78 /min Blood Pressure Systolic 151 mm[Hg] Blood Pressure Diastolic 76 mm[Hg] 03/01/2024 10:26 AM Temperature 98.9 [degF] Oxygen Saturation 90 % Respiratory Rate 18 /min Heart Rate 74 /min Blood Pressure Systolic 163 mm[Hg] Blood Pressure Diastolic 79 mm[Hg] 03/01/2024 01:28 PM Body mass index (BMI) [Ratio] 0.0 kg/m2 Body Weight 230.4 [lb_av] Body Mass Index 38.34 kg/m2 03/02/2024 12:23 PM Body mass index (BMI) [Ratio] 0.0 kg/m2 Body Weight 224.8 [lb_av] Body Mass Index 37.4 kg/m2 03/02/2024 02:00 PM Temperature 97.8 [degF] Oxygen Saturation 89 % Respiratory Rate 18 /min Heart Rate 70 /min Blood Pressure Systolic 182 mm[Hg] Blood Pressure Diastolic 70 mm[Hg] 03/03/2024 01:18 PM Temperature 98.6 [degF] Oxygen Saturation 90 % Respiratory Rate 20 /min Heart Rate 60 /min Blood Pressure Systolic 157 mm[Hg] Blood Pressure Diastolic 80 mm[Hg] 03/03/2024 02:11 PM Body Height 65 [in_us] 03/03/2024 07:08 PM Oxygen Saturation 94 % 03/03/2024 09:51 PM Body Weight 224 [lb_av] Body Mass Index 37.27 kg/m2 03/04/2024 02:00 AM Oxygen Saturation 95 % 03/04/2024 10:08 AM Temperature 97.8 [degF] Oxygen Saturation 93 % Respiratory Rate 18 /min Heart Rate 60 /min Blood Pressure Systolic 181 mm[Hg] Blood Pressure Diastolic 79 mm[Hg] 03/04/2024 11:12 AM Body Weight 219.6 [lb_av] Body Mass Index 36.54 kg/m2 03/04/2024 09:33 PM Oxygen Saturation 94 % 03/05/2024 01:10 AM Oxygen Saturation 93 % 03/05/2024 02:22 PM Oxygen Saturation 93 % 03/05/2024 01:40 PM Body Weight 217.7 [lb_av] Body Mass Index 36.22 kg/m2 03/05/2024 02:24 PM Heart Rate 79 /min 03/05/2024 09:55 PM Oxygen Saturation 92 % 03/06/2024 05:12 AM Oxygen Saturation 91 % 03/06/2024 10:28 AM Temperature 97.7 [degF] Respiratory Rate 19 /min Heart Rate 63 /min Blood Pressure Systolic 180 mm[Hg] Blood Pressure Diastolic 79 mm[Hg] 03/06/2024 10:26 AM Oxygen Saturation 94 % 03/06/2024 10:56 AM Body Weight 219.4 [lb_av] Body Mass Index 36.51 kg/m2 03/06/2024 06:56 PM Oxygen Saturation 96 % 03/07/2024 12:51 AM Oxygen Saturation 97 % 03/07/2024 11:11 AM Oxygen Saturation 97 % 03/07/2024 12:22 PM Temperature 98 [degF] Oxygen Saturation 97 % Respiratory Rate 16 /min Heart Rate 67 /min Blood Pressure Systolic 96 mm[Hg] Blood Pressure Diastolic 73 mm[Hg] 03/07/2024 02:52 PM Body Weight 219 [lb_av] Body Mass Index 36.44 kg/m2 03/07/2024 10:15 PM Oxygen Saturation 98 % 03/08/2024 05:45 AM Oxygen Saturation 95 % 03/08/2024 10:56 AM Body Weight 220 [lb_av] Body Mass Index 36.61 kg/m2 03/08/2024 02:02 PM Temperature 97.7 [degF] Oxygen Saturation 96 % Respiratory Rate 16 /min Heart Rate 61 /min Blood Pressure Systolic 155 mm[Hg] Blood Pressure Diastolic 90 mm[Hg] 03/08/2024 09:52 PM Oxygen Saturation 97 % 03/09/2024 04:22 AM Oxygen Saturation 97 % 03/09/2024 10:37 AM Body Weight 219.3 [lb_av] Body Mass Index 36.49 kg/m2 03/09/2024 01:56 PM Temperature 97.8 [degF] Respiratory Rate 18 /min Heart Rate 76 /min Blood Pressure Systolic 118 mm[Hg] Blood Pressure Diastolic 88 mm[Hg] 03/09/2024 01:55 PM Oxygen Saturation 95 % 03/09/2024 09:07 PM Oxygen Saturation 95 % 03/10/2024 03:43 AM Oxygen Saturation 95 % 03/10/2024 02:26 PM Body Weight 217.2 [lb_av] Body Mass Index 36.14 kg/m2 03/10/2024 03:12 PM Temperature 97.6 [degF] Respiratory Rate 18 /min Heart Rate 68 /min Blood Pressure Systolic 139 mm[Hg] Blood Pressure Diastolic 53 mm[Hg] 03/10/2024 03:10 PM Oxygen Saturation 93 % 03/11/2024 02:53 AM Oxygen Saturation 94 % 03/11/2024 08:59 AM Oxygen Saturation 96 % 03/11/2024 02:40 PM Temperature 97.4 [degF] Oxygen Saturation 96 % Respiratory Rate 18 /min Heart Rate 72 /min Blood Pressure Systolic 140 mm[Hg] Blood Pressure Diastolic 88 mm[Hg] 03/11/2024 09:49 PM Oxygen Saturation 95 % 03/12/2024 03:50 AM Oxygen Saturation 95 % 03/12/2024 09:15 AM Temperature 97.2 [degF] Oxygen Saturation 96 % Respiratory Rate 18 /min Heart Rate 72 /min Blood Pressure Systolic 115 mm[Hg] Blood Pressure Diastolic 88 mm[Hg] Social History No smoking Hx information available Encounters Type CPT Code Date Location Provider Indication s encounter report 02/23/2024 10:2 0 AM Georgina Jane MD encounter report 02/23/2024 02:4 6 PM - 03/12/2024 11:30 AM Georgina Jane MD
--- OUTSIDE RECORDS SUMMARY | 2024-03-17 21:14 | XMS_ITS | Clinical Summary ---
Author Organization [facility] Address [place], [place] [address] Care Team Providers Care Tool Drawing Checker Name Role Phone Melvi Maier Unavailable [phone] Roxanna Leon RN Unavailable [phone] Hilda Cheema MD Primary Care Provider [facility] [place] Unavailable [phone] [facility] [place] Unavailable Ariella Rowe Unavailable Allergies Active Allergy Reactions Criticality Noted Date Comments Menaquinone-7 (Vitamin K2) Anaphylaxis High 01/29/2022 Phytonadione (Vitamin K1) Anaphylaxis High 2 Unresponsive episode after receiving IV vit K - suspected anaphylactic reaction, responding to epinephrine...Michael Garcia MD 04/12/2021 6:50 PM. Pollen Extracts Runny Nose Low 05/26/2017 Medications Coenzyme Q10 (CO Q-10) 200 mg capsuleIndication s:Hypercholestero lemia Take 1 capsule by mouth once daily. 90 capsule 3 017 Active aspirin chewable 81 mg chewable tabletIndications :S/P AVR (aortic valve replacement) Chew 1 Tablet (81 mg) by mouth once daily with a meal. 0 022 Active Insulin Syringe-Needle U-100 0.5 mL 31 gauge x 5/16Indications: Type 2 diabetes mellitus with diabetic polyneuropathy, without long-term current use of insulin (HC) For administering insulin at home. 300 Each 3 022 Active blood-glucose meterIndications: Type 2 diabetes mellitus with diabetic polyneuropathy, without long-term current use of insulin (HC) Dispense meter, test strips, lancets covered by pt ins. E11.65 IDDM type II, uncontrolled - Test 3 times/day. 1 Each 023 Active blood sugar diagnostic (Blood Glucose Test) stripIndications: Type 2 diabetes mellitus with diabetic polyneuropathy, without long-term current use of insulin (HC) Test 3 times per day. 100 Each 023 Active amLODIPine (NORVASC) 10 mg tabletIndications :HTN (hypertension) Take 1 Tablet (10 mg) by mouth once daily. 90 Tablet 3 024 Active FLUoxetine (PROZAC) 10 mg capsuleIndication s:Depression, recurrent (HC),Anxiety TAKE 1 CAPSULE EVERY MORNING 90 Capsule 1 024 Active Lantus Solostar U-100 Insulin 100 unit/mL (3 mL) penIndications:Ty pe 2 diabetes mellitus with diabetic polyneuropathy, without long-term current use of insulin (HC) Inject 30 units subcutaneous before bedtime. 60 mL 024 Active carvediloL (COREG) 12.5 mg tabletIndications :HTN (hypertension) Take 1 Tablet (12.5 mg) by mouth two times daily with meals. 180 Tablet 1 Active furosemide (LASIX) 40 mg tabletIndications :S/P AVR (aortic valve replacement) TAKE 1 TABLET EVERY MORNING 90 Tablet 024 Active continuous glucose monitor SENSOR KIT (FreeStyle Mainor 2 Sensor)Indication s:Type 2 diabetes mellitus with diabetic polyneuropathy, with long-term current use of insulin (HC) To be used to read blood sugars per beater head's directions. 6 Each 3 024 Active atorvastatin (LIPITOR) 40 mg tabletIndications :Other hyperlipidemia TAKE 1 TABLET DAILY 90 Tablet 3 024 Active acetaminophen (TYLENOL EXTRA STRGTH) 500 mg tabletIndications :Displaced spiral fracture of shaft of humerus, left arm, initial encounter for closed fracture Take 2 Tablets (1,000 mg) by mouth every 6 hours if needed for Headache, Pain or Temp>101.5F (38.6C) (For mild pain). Max acetaminophen dose: 4000mg in 24 hrs. 60 Tablet 025 Active lidocaine 4 % topical patchIndications: Displaced spiral fracture of shaft of humerus, left arm, initial encounter for closed fracture Apply to intact skin to cover most painful area for max 12hr per 24hr period. Active sennosides-docusa te (SENOKOT S) (8.6-50 mg) tabletIndications :Displaced spiral fracture of shaft of humerus, left arm, initial encounter for closed fracture Take 1 Tablet by mouth two times daily. Active insulin aspart, U-100, (NOVOLOG FLEXPEN) 100 unit/mL (3 mL) penIndications:Ty pe 2 diabetes mellitus with diabetic polyneuropathy, with long-term current use of insulin (HC) Give subcutaneous 3 times a day with meals per blood glucose (mg/dL). Don't give corrective dose for PRN, post-prandial or nocturnal glucose checks unless ordered. Blood Glucose.....Dos e <70............ .See Hypoglycemia Protocol 70-149........N o insulin, give prandial insulin, if ordered 150-199......2 units 200-249......4 units 250-299......6 units 300-349......8 units 350-399......10 units 400 or greater....12 units & call MD 025 Active polyethylene glycoL (MIRALAX) 17 gram/scoop powder Mix 1 scoop (17 g) in liquid then take by mouth once daily if needed for Constipation. 025 Active warfarin (COUMADIN) 2 mg tabletIndications :Acute ischemic stroke (HC),Anticoagulat ion monitoring, INR range 2-3,Patent foramen ovale Take by mouth 03/10: Hold; Otherwise 4 mg every day in the evening OR as directed 025 Active oxyCODONE (ROXICODONE) 5 mg immediate release tabletIndications :Displaced spiral fracture of shaft of humerus, left arm, initial encounter for closed fracture Take 1 Tablet (5 mg) by mouth every 4 hours if needed for Pain (For severe pain). 26 Tablet Active lisinopriL (PRINIVIL; ZESTRIL) 40 mg tabletIndications :HTN (hypertension) TAKE 1 TABLET DAILY 90 Tablet 025 Active cephalexin 500 mg capsuleIndication s:Cellulitis of left leg Take 1 Capsule (500 mg) by mouth three times daily for 10 days. 30 Capsule 025 2024 Active insulin aspart, U-100, (NovoLOG Flexpen U-100 Insulin) 100 unit/mL (3 mL) penIndications:Ty pe 2 diabetes mellitus with diabetic polyneuropathy, without long-term current use of insulin (HC) INJECT 12-14 UNITS WITH MEALS AND SLIDING SCALE, ABOUT 45 UNITS PER DAY 60 mL 3 024 2024 Discontinued(* IP Discontinued) lisinopriL (PRINIVIL; ZESTRIL) 40 mg tabletIndications :HTN (hypertension) Take 1 Tablet (40 mg) by mouth once daily. 90 Tablet 024 2024 Discontinued warfarin (COUMADIN) 2 mg tabletIndications :Acute ischemic stroke (HC),Anticoagulat ion monitoring, INR range 2-3,Patent foramen ovale Take by mouth 4 mg (2 mg x 2) every Mon; 6 mg (2 mg x 3) all other days in the evening OR as directed 260 Tablet 024 2024 Discontinued(* IP Discontinued) oxyCODONE (ROXICODONE) 5 mg immediate release tabletIndications :Displaced spiral fracture of shaft of humerus, left arm, initial encounter for closed fracture Take 1 Tablet (5 mg) by mouth every 4 hours if needed for Pain (For severe pain). 15 Tablet 025 2024 Discontinued(R eorder (E-cancel not sent)) warfarin (COUMADIN) 1 mg tabletIndications :Acute ischemic stroke (HC),Anticoagulat ion monitoring, INR range 2-3,Paroxysmal atrial fibrillation (HC) Take 3.5 Tablets (3.5 mg) by mouth once daily. [Recheck INR 1/7/25 to redose] 2024 Discontinued(O ther - add note to specify (E-cancel not sent)) oxyCODONE (ROXICODONE) 5 mg immediate release tabletIndications :Displaced spiral fracture of shaft of humerus, left arm, initial encounter for closed fracture Take 1 Tablet (5 mg) by mouth two times daily. At 0800 and 2000 for 5 days. Continue PRN dosing but keep separate from scheduled dosing by at least 4 hours. 10 Tablet 025 2024 Discontinued(* Med complete/Regim en complete/Level of care change) warfarin (COUMADIN) 1 mg tabletIndications :Acute ischemic stroke (HC),Anticoagulat ion monitoring, INR range 2-3,Paroxysmal atrial fibrillation (HC) Take by mouth 02/25: 5 mg; 02/26: 5 mg; 02/27: 5 mg; 02/28: 5 mg; Otherwise 4 mg every Mon; 6 mg all other days in the evening OR as directed 2024 Discontinued(O ther - add note to specify (E-cancel not sent)) warfarin (COUMADIN) 2 mg tabletIndications :Acute ischemic stroke (HC),Anticoagulat ion monitoring, INR range 2-3,Patent foramen ovale Not currently using this dose. Keep on file. 2024 Discontinued(M edication therapy change per hospital protocol (E-cancel not sent)) warfarin (COUMADIN) 2 mg tabletIndications :Acute ischemic stroke (HC),Anticoagulat ion monitoring, INR range 2-3,Patent foramen ovale Take by mouth 03/01: 4 mg; Otherwise 4 mg every Sun, Tue, Katrina; 5 mg all other days in the evening OR as directed 025 2024 Discontinued(O ther - add note to specify (E-cancel not sent)) oseltamivir (TAMIFLU) 75 mg capsule Take 1 Capsule (75 mg) by mouth two times daily. Until: 03/07/2024. 025 2024 Active Problems Problem Noted Date Diagnosed Date S/P Left humerus intramedull daniela nailling DOS:02/17/2024 Dr. Meliton Juarez 03/16/2024 Moderate vascular dementia, unspecified whether behavioral, psychotic, or mood disturbance or anxiety 03/11/2024 Stage 3a chronic kidney disease 03/11/2024 Displaced spiral fracture of shaft of humerus, left arm, initial encounter for closed fracture 02/12/2024 Type 2 diabetes mellitus wit h diabetic polyneuropathy, with long-term current use of insulin 02/12/2024 Paroxysmal atrial fibrillation 05/28/2023 Chronic systolic congestive heart failure 2022 Depression, recurrent 09/26/2021 S/P AVR (aortic valve replacement) 05/16/2021 Overview (05/16/2021): Aortic Valve - ClassLink INSPIRIS RESILIA Aortic Valve - 21mm - [id number] - SN: [id number] - Implanted by MD Terell Cedillo on 05/16/2021. 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 Plan: Pap/HPV due 06/2026. 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 associated with type 2 diabetes mellitus 12/07/2015 Neuropathy 04/27/2015 Irritable bowel syndrome with diarrhea 5 H/O: Cardioembolic ischemic stroke 09/02/2014 Overview (09/02/2014): 02/07/2011 acute ischemic stroke in multiple vessel distribution with cardiogenic source, cardioembolic acute ischemic stroke medullar and internal capsule with PFO Anticoagulation monitoring, INR range 2-3 2013 Vitamin D deficiency 07/02/2013 Personal history of colonic polyps 05/24/2011 Overview (02/03/2020): Colonoscopy 05/2011 normal repeat in 5 years Degeneration of lumbar or lumbosacral interverte bral disc 05/06/2007 Overview (05/06/2007): L4-5 right sided disc Spondyllisthesis Treatment with ptherapy 01/23 Other and unspecified hyperlipidemia Unspecified essential hypertension Resolved Problems Problem Noted Date Diagnosed Date Resolved Date Multiple subsegmental pulmon daniela emboli without acute cor pulmonale 05/12/2021 03/21/2023 Acute hypoxemic respiratory failure 05/11/2021 05/03/2022 H/O: DVT (deep venous thrombosis) 04/12/2021 04/25/2023 Sepsis 03/18/2021 04/12/2021 History of cardioembolic cer ebrovascular accident (CVA) 11/22/2020 04/12/2021 Abdominal pain 11/22/2020 04/12/2021 Left upper quadrant abdominal mass 11/22/2020 04/12/2021 Elevated INR 11/22/2020 04/12/2021 UTI (urinary tract infection) 11/22/2020 04/12/2021 Myopia of right eye with ast igmatism and presbyopia 11/02/2018 04/12/2021 Pre-op examination 06/06/2017 10/03/201 8 Diabetic ulcer of lower leg 05/26/2017 04/12/2021 Overview (05/26/2017): Right lower leg from 01/2017 Acute cardioembolic stroke 09/02/2014 0 04/12/2021 Overview (09/02/2014): 02/07/2011- cardioembolic acute ischemic stroke medullar and internal capsule Microalbuminuria 07/28/2014 04/12/2021 Stroke 01/08/2011 02/08/2011 Personal history of colonic polyps 12/07/2008 05/14/2012 Unspecified essential hypertension 11/19/2006 11/19/2006 Type 2 diabetes mellitus wit h diabetic polyneuropathy, without long-term current use of insulin 01/09/1992 02/12/2024 Overview (06/29/2013): microalbuminuria Encounters Date Type Department Care Team Description 5 11:45 AM PROFESSOR OF EDUCATION Office Visit [facility] [address] [place] [address] Hilda Cheema MD Hospital F/U (Hospital DOD 02/12/24 TCU DOD 03/12/24 Displaced spiral fracture of shaft of humerus, left arm,) 5 Anticoagulation (warfarin) [facility] [address] [place] [address] 1, [facility] Anticoagulation (Chart update.) 5 Telephone [facility] [address] [place] [address] Hilda Cheema MD Anticoagulation (BPA - CEPHALEXIN 500 MG CAPSULE) 5 Travel 5 Telephone [facility] [address] [place] [address] Hilda Cheema MD Outside Order (Verbal Orders /Nurse Visits and Home Health Aid ) 5 Refill [facility] [address] [place] [address] Hilda Cheema MD Refill Request (Lisinopril) 5 Patient Outreach [facility] Management - Care Management Navigation/[facility] [address] [place] [address] Ariella Rowe COTA TCU Transition 5 Telephone [facility] [address] [place] [address] Hilda Cheema MD TCU Orders (VERBAL ORDERS) 5 Patient Outreach [facility] [address] [place] [address] Heather Franklin, RN [facility] Hospital F/U; Primary Care RN SNF/TCU Follow Up ([facility] TCU 03/12/24) 5 9:[address] [address] Sarahy Griffin NP Transitional Care Visit (TCU Discharge Summary) [address] [phone] Meliton Juarez MD 5 Anticoagulation (warfarin) [address] [address] Clinic, Asct Tcu Inr Anticoagulation (TCU) 5 8:[address] [address] Sarahy Griffin NP Transitional Care Visit (Follow up) [address] [phone] Meliton Juarez MD Appointment (First Post-Op) 5 Anticoagulation (warfarin) [address] [address] Clinic, Asct Tcu Inr Anticoagulation (TCU) 5 9:[address] [address] Georgina Jane MD Transitional Care Visit (Follow up) 5 Orders Only [address] [address] Georgina Jane MD <No scans attached> 5 Nurse Triage [address] [address] Eleni Anderson NP Concerns 5 8:30 AM [facility] [address] [address] Eleni Anderson NP Transitional Care Visit (Follow up) 5 Anticoagulation (warfarin) [address] [address] Clinic, Asct Tcu Inr Anticoagulation (TCU) 5 Telephone [facility] [address] [place] [address] Hilda Cheema MD Anticoagulation (Annual re-enrollment- Warfarin) 5 Anticoagulation (warfarin) [address] [address] Clinic, Asct Tcu Inr Anticoagulation (TCU) 5 9:[address] [address] Georgina Jane MD Transitional Care Visit (Initial) 5 8:[address] [address] Sarahy Griffin NP Transitional Care Visit (Admit) 5 Nurse Triage [address] [address] Sarahy Griffin NP Anticoagulation (Requesting orders) 5 Anticoagulation (warfarin) [address] [address] Clinic, Asct Tcu Inr Anticoagulation (TCU) [address] [address] Sarahy Griffin NP Anticoagulation (INR Orders) 5 Patient Outreach [facility] Care Management - Care Management Navigation/[facility] [address] [place] [address] Ariella Rowe COTA TCU Transition 5 Telephone [facility] [address] [place] [address] Hilda Cheema MD Anticoagulation (Clarification needed) 4 3:35 PM PROFESSOR OF EDUCATION Anesthesia Event [facility] [address] [place] [address] Cecilio Ray CRNA Gharib, Leann Powell MD 4 1:55 PM PROFESSOR OF EDUCATION - 4 6:07 PM PROFESSOR OF EDUCATION Surgery [facility] [address] [place] [address] Meliton Juarez MD LEFT HUMERUS INTERMEDULLARY NAILING 4 Travel 4 8:35 PM PROFESSOR OF EDUCATION - 5 2:00 PM PROFESSOR OF EDUCATION Hospital Encounter [facility] [address] [place] [address] [facility] [place], MD Mike Washington, MD Brad Tan Amrith, MD Schmidt, MD Michelle Coleman, Valeria Hernandez MD Displaced spiral fracture of shaft of humerus, left arm, initial encounter for closed fracture (Primary Dx); Type 2 diabetes mellitus with diabetic polyneuropathy, without long-term current use of insulin (HC); Type 2 diabetes mellitus with diabetic polyneuropathy, with long-term current use of insulin (HC); H/O: Cardioembolic ischemic stroke ; Anticoagulation monitoring, INR range 2-3; Paroxysmal atrial fibrillation (HC) Discharge Disposition: Longterm Facility 4 Orders Only [facility] Scanner 1 scan: (1-Ord) [facility], XR HUMERUS LT, 02/12/2024 4 Orders Only [facility] Scanner 1 scan: (1-Ord) [facility], XR LT HUMERUS , 02/12/2024 4 Orders Only [facility] Scanner 1 scan: (1-Ord) [facility], XR HUMERUS LT, 02/11/2024 4 Refill [facility] [address] [place] [address] Hilda Cheema MD Refill Request (Atorvastatin) 4 3:00 PM PROFESSOR OF EDUCATION Orders Only [facility] [address] [place] [address] Lab, [facility] 4 Anticoagulation (warfarin) [facility] [address] [place] [address] 1, [facility] Anticoagulation 4 Travel 4 Refill [facility] [address] [place] [address] Hilda Cheema MD Refill Request (Warfarin) [address] [place] [address] Hilda Cheema MD Anticoagulation (INR OVERDUE REMINDER #2 ) 4 Telephone [facility] [address] [place] [address] Hilda Cheema MD Refill Request (Freestyle Mainor 3 sensors) 4 Refill [facility] [address] [place] [address] Hilda Cheema MD Refill Request (Furosemide) 4 12:30 PM PROFESSOR OF EDUCATION Office Visit [facility] [address] [facility] [address] [place] [address] Libby Gonzales, PhD, LP Neuropsychological Assessment 4 Travel 4 Telephone [facility] [address] [place] [address] Libby Gonzales, PhD, LP Appointment Reminder 4 Refill [facility] [address] [place] [address] Hilda Cheema MD Refill Request (Lisinopril) 4 1:20 PM CDT Office Visit [facility] [place] [facility] [address] [place] [address] Dev Trevino MD Follow Up (Follow up after MRI 12/08/23 ) 4 Telephone [facility] [address] [place] [address] Hilda Cheema MD Anticoagulation (Lab Orders) 4 Travel from Last 3 Months Immunizations Name Administration Dates Next Due AMB Influenza, IIV4 PF (=>6 mos Flulaval,Fluzone Fluarix)(Flu Clinic Only) 01/28/2014 COVID-19 vaccine (Moderna 100mcg/0.5mL) PF, MDV 04/12/2020,03/15/2020 COVID-19 vaccine (Smart Gardener-Bio NTech 30mcg/0.3mL) 12YO+ BIVALENT PF, MDV 01/03/2022 HIB PRP-OMP (PedvaxHIB) 03/27/2021(Defer red: - per pharmacy, we do not carry this vaccine. unable to administer) HepA-HepB (Twinrix) 03/25/2014,08/16/2013,2013 Influenza, IIV3 (Age >=3 years) 03/29/2013,12/07,12/10/2006 Influenza, IIV4 11/27/2020, 0,11/16/2018,12/10,12/10/2016,11/15/2015,11/10/2014 ,01/28/2014 Influenza, Inactivated AIIV4 (Age 65+ Years) Preserv Free 11/11/2022,01/03/2022 Influenza, Inactivated IIV3 (Age 65+ Years) Preserv Free 02/19/2024() MENINGOCOCCAL VACCINE 2 VIAL [id number] (MENVEO) 03/27/2021 Meningococcal B 03/27/2021 Pneumococcal Conj 20-valent (Prevnar 20) 05/01/2022 Pneumococcal conj 13-Valent (Prevnar 13) 03/27/2021 Td, Preservative Free (age >= 7 Years) 8 Tdap 12/10/2006 Tuberculin (PPD) 05/10/2016 Zoster (Shingrix-RZV, recombinant) 12/15/2019, Family History Medical History Relation Name Comments Cancer-colon Brother Heart Disease Father in his mi d 50s Hypertension Father Stroke Father in his mid 50s Cancer-colon Mother Diabetes Mother Other Mother Cirrhosis Anesthesia Problem No Family History Blood Disease No Family History Cancer-breast No Family History Relation Name Status Comments Brother Father (Age 56) OF A CVA OR ME Mother HAS UNKNOWN KARLY OLOGY LIVER DISEASE, HISTORY OF COLON CANCER Social History Tobacco Use Types Packs/Day Years Used Date Smoking Tobacco: Former Cigarettes 0.5 15 0 02/17/1994 - 02/17/2009 Smokeless Tobacco: Never Tobacco Cessation:Counseling Given: Yes Alcohol Use Standard Drinks/Week Comments No 0 (1 standard drink = 0.6 oz pur e alcohol) Humiliation, Afraid, Rape, and Kick questionnair e Answer Date Recorded Fear of Current or Ex-Partner No Emotionally Abused No 11/20/2018 Physically Abused No 11/20/2018 Sexually Abused No 11/20/2018 PHQ-2 Answer Date Recorded PHQ-2 TOTAL SCORE 1 07/04/2023 [facility] - Occupational Stress Questionnaire Answer Date Recorded Feeling of Stress Not at all 11/20/2018 Social Connections Answer Date Recorded Do you often feel lonely or isolated from those around you? 0 02/16/2024 Financial Resource Strain Answer Date R ecorded Difficulty of Paying Living Expenses 3 02/17/2024 Difficulty of Paying Living Expenses Not on file 02/17/2024 Food Insecurity Answer Date Recorded Do you worry your food will run out before you are able to buy more? 1 02/16/2024 Transportation Needs Answer Date Record ed Does lack of transportation keep you from medica l appointments? 1 02/16/2024 Does lack of transportation keep you from work, meetings or getting things that you need? 1 02/16/2024 Housing Stability Answer Date Recorded What is your housing situation today? 1 02/16/2024 Interpersonal Safety Answer Date Record ed Are you being hit, kicked, p ushed or yelled at (see row info)? No 02/16/2024 Interpersonal Safety Abuse 12 - 18 Not on file 02/16/2024 Interpersonal Safety Ambulatory Vulnerability No t on file 02/16/2024 Utilities Answer Date Recorded Do you have trouble paying f or utilities (for example, heat, electricity, water, phone)? 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 Not on file Not on fi le Obstetrics History Para Term AB IAB SAB Ectopic Multiple Livin g Live Births 3 3 2 1 6 3 Date Outcome GA Total Labor Labor/2nd/3rd Weight Sex Type Anes PTL Saira A1 A5 Name Clin 02/24 Term F Vag Living Doreen 07/28 Term M Vag N Living Jeffrey 12/14 30w 0d F Vag Y Living Oscar Last Filed Vital Signs Vital Sign Reading Time Taken Comments Blood Pressure 181/80 03/17/2024 11:58 AM PROFESSOR OF EDUCATION Pulse 81 03/17/2024 11:58 AM PROFESSOR OF EDUCATION Temperature 36.8 C (98.2 F) 02/22/2024 11:57 PM PROFESSOR OF EDUCATION Respiratory Rate 16 02/23/2024 10:0 5 AM PROFESSOR OF EDUCATION Oxygen Saturation 97% 03/17/2024 11: 58 AM PROFESSOR OF EDUCATION Inhaled Oxygen Concentration - - Weight 104.6 kg (230 lb 9.6 oz) 02/22/2024 6:52 AM PROFESSOR OF EDUCATION Height 165.1 cm (5' 5) 07/04/2023 1:58 PM CDT Body Mass Index 38.37 07/04/2023 1:58 PM CDT Plan of Treatment Upcoming Encounters Date Type Department Care Team (Late st Contact Info) Description 03/24/2024 11:00 AM PROFESSOR OF EDUCATION Office Visit [facility] [place] [address] [facility] [address] [place] [phone] Meliton Juarez MD [address] [facility] [address] [place] [address] 03/31/2024 1:35 PM PROFESSOR OF EDUCATION Procedure Only [facility] [address] [place] [address] Hilda Cheema MD [address] [place] [address] Health Maintenance Due Date Last Done Comments RSV vaccine for adults or (1 - Risk 60-74 years 1-dose series) 2016 Mammogram for age 45-75 05/02/2023 05/02/19 23, 12/28/2019, 12/07/2018, Additional history exists COVID-19 vaccine series ( season) 2023 01/03/2022, 04/12/2020, 03/15/2020 Influenza for age 65+ 10/19/2023 11/11/2022 , 01/03/2022, 11/27/2020, Additional history exists BMI (ht and wt on same day) for age 18+ 07/03/2024 07/04/2023, 11/11/2022, 08/07/2022, Additional history exists Medicare Wellness for age 65+ 07/04/2024 07/04/2023, 05/01/2022 Depression screening for age 12+ 07/07/2024 07/08/2023, 07/05/2023, 07/04/2023, Additional history exists Colonoscopy through age 75 02/02/202502/02, 02/03/2020, 01/28/2020, Additional history exists Tetanus booster 05/30/2027 05/29/2017, 11/18, 12/18/1992 Lipids for age 45-75 11/12/2027 11/11/2022, 01/03/2022, 12/15/2019, Additional history exists Tdap Completed 12/10/2006 Hepatitis C screening for ag e 18-79 Completed 11/16/2018 Zoster (shingles) series for age 50+ Completed 12/15/2019, 11/16/2018 DEXA/DXA scan for age 65+ Completed 05/01/2022 Pneumococcal series for age 50+ Completed 3, 03/27/2021 Medical Devices Implanted Type Area [employer] Attendant Device Identifier Shelf Expiration Date Model / Serial / Lot Valve Aortic 21mm Inspirus Resilia Tissue - [id number] Implanted:Qty: 1 on 05/16/2021 by Agustin Cedillo MD at [facility] N/A: Aortic Valve [employer] 11/29/2024 [id number] / [id number] / Description:No rinse per man ufacture's instructions. Humeral Nail 8/7mm X 24cm Implanted:Qty: 1 on 02/17/2024 by Meliton Juarez MD at [facility] Left: Humerus [id number] / / Description:HUMERAL NAIL 8/7 MM X 24CM Screw Bone 5x34mm Trigen Cnclls Slf Tppng - [id number] Implanted:Qty: 1 on 02/17/2024 by Meliton Juarez MD at [facility] Left: Humerus [employer] 03/22/2033 [id number] / / [id number] Screw Bone 5x38mm Trigen Cnclls Slf Tppng - [id number] Implanted:Qty: 1 on 02/17/2024 by Meliton Juarez MD at [facility] Left: Humerus [employer] 04/19/2033 [id number] / / [id number] Screw 5.0 X 28 Self Tap Implanted:Qty: 1 on 02/17/2024 by Meliton Juarez MD at [facility] Left: Humerus 09/05/2033 [id number] / / [id number] Description:SCREW 5.0 X 28 S ELF TAP Screw Bone 4x20mm Trigen Jayesh Slf Tppng - [id number] Implanted:Qty: 1 on 02/17/2024 by Meliton Juarez MD at [facility] Left: Humerus [employer] 08/29/2033 [id number] / / [id number] Screw Bone 4x22mm Trigen Jayesh Slf Tppng - [id number] Implanted:Qty: 1 on 02/17/2024 by Meliton Juarez MD at [facility] Left: Humerus [employer] 08/30/2033 [id number] / / [id number] Procedures Procedure Name Priority Date/Time Associated Diagnosis Comments INR,POCT Routine 03/05/2024 GLUCOSE METER Timed 02/23/2024 11:08 AM PROFESSOR OF EDUCATION MAGNESIUM Early AM 02/23/2024 7:42 AM PROFESSOR OF EDUCATION BASIC METABOLIC PANEL Early AM 02/23/2024 7:42 AM PROFESSOR OF EDUCATION PROTIME-INR Early AM 02/23/2024 7:42 AM PROFESSOR OF EDUCATION GLUCOSE METER Timed 02/23/2024 7:16 AM PROFESSOR OF EDUCATION GLUCOSE METER Timed 02/22/2024 9:42 PM PROFESSOR OF EDUCATION GLUCOSE METER Timed 02/22/2024 4:49 PM PROFESSOR OF EDUCATION GLUCOSE METER Timed 02/22/2024 11:49 AM PROFESSOR OF EDUCATION APTT Today 02/22/2024 10:26 AM PROFESSOR OF EDUCATION HEMOGLOBIN Early AM 02/22/2024 10:26 AM PROFESSOR OF EDUCATION ELECTROLYTE PANEL Early AM 02/22/2024 10: 26 AM PROFESSOR OF EDUCATION PROTIME-INR Early AM 02/22/2024 10:26 AM PROFESSOR OF EDUCATION GLUCOSE METER Timed 02/22/2024 6:46 AM PROFESSOR OF EDUCATION GLUCOSE METER Timed 02/21/2024 9:31 PM PROFESSOR OF EDUCATION GLUCOSE METER Timed 02/21/2024 4:58 PM PROFESSOR OF EDUCATION GLUCOSE METER Timed 02/21/2024 1:26 PM PROFESSOR OF EDUCATION APTT Timed 02/21/2024 7:28 AM PROFESSOR OF EDUCATION PROTIME-INR Early AM 02/21/2024 7:28 AM PROFESSOR OF EDUCATION HEMATOCRIT Early AM 02/21/2024 7:28 AM PROFESSOR OF EDUCATION HEMOGLOBIN Early AM 02/21/2024 7:28 AM PROFESSOR OF EDUCATION PLATELET COUNT Early AM 02/21/2024 7:28 AM PROFESSOR OF EDUCATION GLUCOSE METER Timed 02/21/2024 7:16 AM PROFESSOR OF EDUCATION GLUCOSE METER Timed 02/20/2024 10:28 PM PROFESSOR OF EDUCATION APTT Timed 02/20/2024 9:35 PM PROFESSOR OF EDUCATION GLUCOSE METER Timed 02/20/2024 4:57 PM PROFESSOR OF EDUCATION APTT ETIENNE 02/20/2024 12:24 PM PROFESSOR OF EDUCATION APTT Timed 02/20/2024 12:24 PM PROFESSOR OF EDUCATION BASIC METABOLIC PANEL Early AM 02/20/2024 12:24 PM PROFESSOR OF EDUCATION PROTIME-INR Early AM 02/20/2024 12:24 PM PROFESSOR OF EDUCATION HEMATOCRIT Early AM 02/20/2024 12:24 PM PROFESSOR OF EDUCATION HEMOGLOBIN Early AM 02/20/2024 12:24 PM PROFESSOR OF EDUCATION PLATELET COUNT Early AM 02/20/2024 12:24 PM PROFESSOR OF EDUCATION GLUCOSE METER Timed 02/20/2024 11:38 AM PROFESSOR OF EDUCATION GLUCOSE METER Timed 02/20/2024 6:34 AM PROFESSOR OF EDUCATION APTT Timed 02/20/2024 12:30 AM PROFESSOR OF EDUCATION GLUCOSE METER Timed 02/19/2024 9:22 PM PROFESSOR OF EDUCATION GLUCOSE METER Timed 02/19/2024 5:24 PM PROFESSOR OF EDUCATION GLUCOSE METER Timed 02/19/2024 1:40 PM PROFESSOR OF EDUCATION BASIC METABOLIC PANEL Timed 02/19/2024 10:45 AM PROFESSOR OF EDUCATION PROTIME-INR Early AM 02/19/2024 10:45 AM PROFESSOR OF EDUCATION HEMATOCRIT Early AM 02/19/2024 10:45 AM PROFESSOR OF EDUCATION HEMOGLOBIN Early AM 02/19/2024 10:45 AM PROFESSOR OF EDUCATION PLATELET COUNT Early AM 02/19/2024 10:45 AM PROFESSOR OF EDUCATION GLUCOSE METER Timed 02/19/2024 8:24 AM PROFESSOR OF EDUCATION XR HUMERUS MIN 2 VIEWS LEFT Routine 02/19/2024 8:19 AM PROFESSOR OF EDUCATION GLUCOSE METER Timed 02/19/2024 6:46 AM PROFESSOR OF EDUCATION APTT Today 02/18/2024 9:28 PM PROFESSOR OF EDUCATION GLUCOSE METER Timed 02/18/2024 9:08 PM PROFESSOR OF EDUCATION GLUCOSE METER Timed 02/18/2024 5:08 PM PROFESSOR OF EDUCATION HEMATOCRIT Early AM 02/18/2024 4:31 PM PROFESSOR OF EDUCATION HEMOGLOBIN Early AM 02/18/2024 4:31 PM PROFESSOR OF EDUCATION PLATELET COUNT Early AM 02/18/2024 4:31 PM PROFESSOR OF EDUCATION GLUCOSE METER Timed 02/18/2024 11:36 AM PROFESSOR OF EDUCATION GLUCOSE METER Timed 02/18/2024 6:42 AM PROFESSOR OF EDUCATION GLUCOSE METER Timed 02/17/2024 10:32 PM PROFESSOR OF EDUCATION GLUCOSE METER Timed 02/17/2024 7:02 PM PROFESSOR OF EDUCATION XR HUMERUS MIN 2 VIEWS LEFT PORTABLE Routine 02/17/2024 6:09 PM PROFESSOR OF EDUCATION XR C-ARM EQUAL OR GREATER 2 HR Routine 02/17/2024 6:07 PM PROFESSOR OF EDUCATION ENDOTRACHEAL TUBE Routine 02/17/2024 4:1 5 PM PROFESSOR OF EDUCATION ENDOTRACHEAL TUBE Routine 02/17/2024 4:1 5 PM PROFESSOR OF EDUCATION TYPE & SCREEN STAT 02/17/2024 3:22 PM PROFESSOR OF EDUCATION OPEN REDUCTION INTERNAL FIXATION HUMERUS Class D Urgent 02/17/2024 3:17 PM PROFESSOR OF EDUCATION Left humeral shaft fracture Case Notes Supine On [facility] HUMERAL NAIL SET/LOANER GLUCOSE METER Timed 02/17/2024 2:04 PM PROFESSOR OF EDUCATION GLUCOSE METER Timed 02/17/2024 11:39 AM PROFESSOR OF EDUCATION ECHO TTE COMPLETE W CONTRAST Routine 02/17/2024 9:37 AM PROFESSOR OF EDUCATION HEMATOCRIT Early AM 02/17/2024 6:20 AM PROFESSOR OF EDUCATION HEMOGLOBIN Early AM 02/17/2024 6:20 AM PROFESSOR OF EDUCATION PLATELET COUNT Early AM 02/17/2024 6:20 AM PROFESSOR OF EDUCATION GLUCOSE METER Timed 02/17/2024 6:01 AM PROFESSOR OF EDUCATION APTT Today 02/16/2024 11:43 PM PROFESSOR OF EDUCATION GLUCOSE METER Timed 02/16/2024 9:39 PM PROFESSOR OF EDUCATION APTT Today 02/16/2024 4:56 PM PROFESSOR OF EDUCATION GLUCOSE METER Timed 02/16/2024 4:25 PM PROFESSOR OF EDUCATION GLUCOSE METER Timed 02/16/2024 11:43 AM PROFESSOR OF EDUCATION XR CHEST 1 VIEW PORTABLE ETIENNE 02/16/2024 8:10 AM PROFESSOR OF EDUCATION GLUCOSE METER Timed 02/16/2024 6:54 AM PROFESSOR OF EDUCATION PRO-BNP ETIENNE 02/16/2024 5:48 AM PROFESSOR OF EDUCATION APTT Early AM 02/16/2024 5:48 AM PROFESSOR OF EDUCATION CBC W PLT NO DIFF Early AM 02/16/2024 5:4 8 AM PROFESSOR OF EDUCATION PROTIME-INR Early AM 02/16/2024 5:48 AM PROFESSOR OF EDUCATION SODIUM Early AM 02/16/2024 5:48 AM PROFESSOR OF EDUCATION MAGNESIUM Early AM 02/16/2024 5:48 AM PROFESSOR OF EDUCATION POTASSIUM Early AM 02/16/2024 5:48 AM PROFESSOR OF EDUCATION CREATININE Early AM 02/16/2024 5:48 AM PROFESSOR OF EDUCATION GLUCOSE METER Timed 02/15/2024 9:41 PM PROFESSOR OF EDUCATION APTT Timed 02/15/2024 6:11 PM PROFESSOR OF EDUCATION GLUCOSE METER Timed 02/15/2024 5:22 PM PROFESSOR OF EDUCATION GLUCOSE METER Timed 02/15/2024 11:33 AM PROFESSOR OF EDUCATION APTT Timed 02/15/2024 10:45 AM PROFESSOR OF EDUCATION GLUCOSE METER Timed 02/15/2024 7:35 AM PROFESSOR OF EDUCATION GLUCOSE METER Timed 02/15/2024 6:29 AM PROFESSOR OF EDUCATION PROTIME-INR Early AM 02/15/2024 6:27 AM PROFESSOR OF EDUCATION CREATININE Early AM 02/15/2024 6:27 AM PROFESSOR OF EDUCATION CBC W PLT NO DIFF Early AM 02/15/2024 6:2 7 AM PROFESSOR OF EDUCATION APTT Timed 02/15/2024 1:14 AM PROFESSOR OF EDUCATION GLUCOSE METER Timed 02/14/2024 9:36 PM PROFESSOR OF EDUCATION APTT Timed 02/14/2024 6:34 PM PROFESSOR OF EDUCATION GLUCOSE METER Timed 02/14/2024 5:17 PM PROFESSOR OF EDUCATION GLUCOSE METER Timed 02/14/2024 11:54 AM PROFESSOR OF EDUCATION CREATININE ETIENNE 02/14/2024 10:52 AM PROFESSOR OF EDUCATION BUN ETIENNE 02/14/2024 10:52 AM PROFESSOR OF EDUCATION HEMATOCRIT ETIENNE 02/14/2024 10:52 AM PROFESSOR OF EDUCATION HEMOGLOBIN ETIENNE 02/14/2024 10:52 AM PROFESSOR OF EDUCATION PLATELET COUNT ETIENNE 02/14/2024 10:52 AM PROFESSOR OF EDUCATION APTT ETIENNE 02/14/2024 10:52 AM PROFESSOR OF EDUCATION PROTIME-INR ETIENNE 02/14/2024 10:52 AM PROFESSOR OF EDUCATION GLUCOSE METER Timed 02/14/2024 6:50 AM PROFESSOR OF EDUCATION PROTIME-INR Early AM 02/14/2024 4:43 AM PROFESSOR OF EDUCATION CBC W PLT NO DIFF Early AM 02/14/2024 4:4 3 AM PROFESSOR OF EDUCATION CREATININE Early AM 02/14/2024 4:43 AM PROFESSOR OF EDUCATION GLUCOSE METER Timed 02/13/2024 10:12 PM PROFESSOR OF EDUCATION GLUCOSE METER Timed 02/13/2024 4:47 PM PROFESSOR OF EDUCATION GLUCOSE METER Timed 02/13/2024 1:04 PM PROFESSOR OF EDUCATION SCAN CORRESP-EKG RESULTS 02/13/2024 10:56 AM PROFESSOR OF EDUCATION SCAN CORRESP-LABORATORY RESULTS 02/13/2024 10:56 AM PROFESSOR OF EDUCATION SCAN CORRESP-LABORATORY RESULTS 02/13/2024 10:56 AM PROFESSOR OF EDUCATION SCAN CORRESP-IMAGING 02/13/2024 10:56 AM PROFESSOR OF EDUCATION GLUCOSE METER Timed 02/13/2024 8:52 AM PROFESSOR OF EDUCATION PROTIME-INR Early AM 02/13/2024 7:12 AM PROFESSOR OF EDUCATION CBC W PLT NO DIFF Early AM 02/13/2024 7:1 2 AM PROFESSOR OF EDUCATION SODIUM Early AM 02/13/2024 7:12 AM PROFESSOR OF EDUCATION POTASSIUM Early AM 02/13/2024 7:12 AM PROFESSOR OF EDUCATION CREATININE Early AM 02/13/2024 7:12 AM PROFESSOR OF EDUCATION GLUCOSE METER Timed 02/12/2024 9:51 PM PROFESSOR OF EDUCATION TYPE & SCREEN Today 02/12/2024 9:34 PM PROFESSOR OF EDUCATION CREATININE Today 02/12/2024 9:34 PM PROFESSOR OF EDUCATION POTASSIUM Today 02/12/2024 9:34 PM PROFESSOR OF EDUCATION PROTIME-INR ETIENNE 02/12/2024 9:34 PM PROFESSOR OF EDUCATION HEMOGLOBIN ETIENNE 02/12/2024 9:34 PM PROFESSOR OF EDUCATION SCAN-RADIOLOGY REPORT 02/12/2024 12:00 AM PROFESSOR OF EDUCATION SCAN-RADIOLOGY REPORT 02/12/2024 12:00 AM PROFESSOR OF EDUCATION SCAN-RADIOLOGY REPORT 02/11/2024 12:00 AM PROFESSOR OF EDUCATION INR,POCT Routine 02/03/2024 2:55 PM PROFESSOR OF EDUCATION H/O: Cardioembolic ischemic stroke Anticoagulation monitoring, INR range 2-3 Patent foramen ovale LIPID PANEL W REFLEX MEASURED LDL Routine 11/11/2022 3:04 PM CDT Type 2 diabetes mellitus with diabetic polyneuropathy, without long-term current use of insulin (HC) XR DXA BONE DENSITY 2 SITES AXIAL Routine 05/01/2022 1:35 PM CDT Postmenopausal XR MAMMO DELFINA BILAT SCREEN Routine 05/01/2022 1:15 PM CDT Visit for screening mammogram COLONOSCOPY 02/03/2020 11:11 AM PROFESSOR OF EDUCATION ANTI HCV Routine 11/16/2018 3:04 PM CDT Need for hepatitis C screening test from Last 3 Months or Most Recently Relevant to Health Maintenance Results * (ABNORMAL) INR,POCT (03/05/2024) Only the most recent of2 resultswithin the time period is included. INR 2.6(EXTERNA L) 0.0 - 1.2 U [facility] Blood BLOOD SPECIMEN / Unknown us Sarahy Griffin [facility] Final Resu lt [facility] [address] [place], [place] [id number] * (ABNORMAL) GLUCOSE METER (02/23/2024 11:08 AM PROFESSOR OF EDUCATION) Only the most recent of46 resultswithin the time period is included. GLUCOSE METER 212(H) 65 - 100 mg/dL 02/23/2024 11:16 AM PROFESSOR OF EDUCATION [facility] Blood BLOOD SPECIMEN / Unknown 02/23/2024 11:08 AM PROFESSOR OF EDUCATION 02/23/2024 11:16 AM PROFESSOR OF EDUCATION Valeria Martinez MD CHEMISTRY Final Resu lt Performing Organization Address [facility] de Phone Number [facility] [address] [place] [address], [place] * (ABNORMAL) PROTIME-INR (02/23/2024 7:42 AM PROFESSOR OF EDUCATION) Only the most recent of11 resultswithin the time period is included. INR 2.4(H) <1.3 02/23/2024 8:39 AM PROFESSOR OF EDUCATION [facility] PROTIME 28.1(H) 10.6 - 12.4 sec 02/23/2024 8:39 AM PROFESSOR OF EDUCATION [facility] Blood BLOOD SPECIMEN / Unknown Venipuncture / Unknown 02/23/2024 7:42 AM PROFESSOR OF EDUCATION 02/23/2024 8:22 AM PROFESSOR OF EDUCATION Narrative [facility] - 02/23/2024 8:39 AM PROFESSOR OF EDUCATION Therapeutic Range 2.0-3.0 for most anticoagulated patients 2.5-3.5 or 4.0 for high risk patients The INR is only used for patients on stable oral anticoagulant therapy. It makes no significant contribution to the diagnosis or treatment of patients whose Protime is prolonged for other reasons. INR results are increased when heparin levels exceed 1.0 U/mL, which corresponds to an aPTT >125 seconds if the patient is on UFH. Roxanne Keita MD HEMATOLOGY Final R esult Performing Organization Address [facility] de Phone Number [facility] [address] [address], [place] * Magnesium AM (02/23/2024 7:42 AM PROFESSOR OF EDUCATION) Only the most recent of2 resultswithin the time period is included. MAGNESIUM 1.7 1.6 - 2.4 mg/dL 02/23/2024 9:10 AM PROFESSOR OF EDUCATION [facility] Blood BLOOD SPECIMEN / Unknown Venipuncture / Unknown 02/23/2024 7:42 AM PROFESSOR OF EDUCATION 02/23/2024 8:22 AM PROFESSOR OF EDUCATION Valeria Martinez MD CHEMISTRY Final Resu lt [facility] [address] [place] [address], * (ABNORMAL) Basic metabolic panel AM (02/23/2024 7:42 AM PROFESSOR OF EDUCATION) Only the most recent of3 resultswithin the time period is included. SODIUM 139 136 - 145 mmol/L 02/23/2024 9:29 AM [facility] POTASSIUM 4.8 3.5 - 5.1 mmol/L 02/23/2024 9:29 AM [facility] CHLORIDE 100 98 - 107 mmol/L 02/23/2024 9:29 AM [facility] CO2,TOTAL 27 22 - 29 mmol/L 02/23/2024 9:29 AM [facility] ANION GAP 12 5 - 18 02/23/2024 9:29 AM [facility] GLUCOSE 140(H) 70 - 99 mg/dL 02/23/2024 9:29 AM [facility] CALCIUM 8.8 8.8 - 10.4 mg/dL 02/23/2024 9:29 AM [facility] Comment: Reference ranges for this test were updated on 12/23/2023 to reflect our healthy population more accurately. Reference range changes are not retroactively applied to results, but previous results using the same methodology can be interpreted in the context of the new reference range. BUN 19 8 - 23 mg/dL 02/23/2024 9:29 AM [facility] CREATININE 0.82 0.50 - 0.90 mg/dL 02/23/2024 9:29 AM [facility] BUN/CREAT RATIO 23(H) 10 - 20 9:29 AM [facility] eGFR 79(L) >90 mL/min/1. 73m2 02/23/2024 9:29 AM [facility] Comment:As of 2021, eG FR is calculated by the CKD-EPI creatinine equation without race adjustment. eGFR can be influenced by muscle mass, exercise, and diet. The reported eGFR is an estimation only and is only applicable if the renal function is stable. Blood BLOOD SPECIMEN / Unknown Venipuncture / Unknown 02/23/2024 7:42 AM PROFESSOR OF EDUCATION 02/23/2024 8:22 AM PROFESSOR OF EDUCATION Valeria Martinez MD CHEMISTRY Final Resu lt Performing Organization Address [facility] Co de Phone Number [facility] [address] [place] [address], * (ABNORMAL) Hemoglobin AM (02/22/2024 10:26 AM PROFESSOR OF EDUCATION) Only the most recent of8 resultswithin the time period is included. HEMOGLOBIN 9.9(L) 12.0 - 16.0 g/dL 02/22/2024 10:55 AM PROFESSOR OF EDUCATION [facility] Aurality [facility] MCV 90 80 - 100 fL 02/22/2024 10:55 AM PROFESSOR OF EDUCATION [facility] Blood BLOOD SPECIMEN / Unknown Venipuncture / Unknown 02/22/2024 10:26 AM PROFESSOR OF EDUCATION 02/22/2024 10:46 AM PROFESSOR OF EDUCATION Valeria Martinez MD HEMATOLOGY Final Resu lt Performing Organization Address City/[facility]/ZIP Co de Phone Number [facility] [address] [place] [address], [place] * APTT (02/22/2024 10:26 AM PROFESSOR OF EDUCATION) Only the most recent of15 resultswithin the time period is included. APTT 34 25 - 36 sec 02/22/2024 11:06 AM PROFESSOR OF EDUCATION [facility] Blood BLOOD SPECIMEN / Unknown Venipuncture / Unknown 02/22/2024 10:26 AM PROFESSOR OF EDUCATION 02/22/2024 10:46 AM PROFESSOR OF EDUCATION Narrative [facility] - 02/22/2024 11:06 AM PROFESSOR OF EDUCATION Therapeutic Range: 59-89 seconds Valeria Martinez MD HEMATOLOGY Final Resu lt Performing Organization Address City/[facility]/ZIP Co de Phone Number [facility] [address] [place] [address], [place] * Electrolyte panel AM (02/22/2024 10:26 AM PROFESSOR OF EDUCATION) SODIUM 137 136 - 145 mmol/L 02/22/2024 11:11 AM PROFESSOR OF EDUCATION [facility] POTASSIUM 3.8 3.5 - 5.1 mmol/L 02/22/2024 11:11 AM PROFESSOR OF EDUCATION [facility] CHLORIDE 103 98 - 107 mmol/L 02/22/2024 11:11 AM PROFESSOR OF EDUCATION [facility] CO2,TOTAL 26 22 - 29 mmol/L 02/22/2024 11:11 AM PROFESSOR OF EDUCATION [facility] ANION GAP 8 5 - 18 02/22/2024 11:11 AM PROFESSOR OF EDUCATION [facility] Blood BLOOD SPECIMEN / Unknown Venipuncture / Unknown 02/22/2024 10:26 AM PROFESSOR OF EDUCATION 02/22/2024 10:45 AM PROFESSOR OF EDUCATION Valeria Martinez MD CHEMISTRY Final Resu lt Performing Organization Address [facility] Co de Phone Number [facility] [address] [place] [address], [place] * (ABNORMAL) PLATELET COUNT (02/21/2024 7:28 AM PROFESSOR OF EDUCATION) Only the most recent of6 resultswithin the time period is included. PLATELET COUNT 284 140 - 440 thou/cu mm 02/21/2024 7:46 AM PROFESSOR OF EDUCATION [facility] MPV 12.7(H) 6.5 - 11.0 fL 02/21/2024 7:46 AM PROFESSOR OF EDUCATION [facility] Blood BLOOD SPECIMEN / Unknown Venipuncture / Unknown 02/21/2024 7:28 AM PROFESSOR OF EDUCATION 02/21/2024 7:40 AM PROFESSOR OF EDUCATION Narrative [facility] - 02/21/2024 7:46 AM PROFESSOR OF EDUCATION Every morning while on IV heparin. Every morning while on IV heparin. Necessary every morning while on IV heparin. us Thomas Mckeon MD HEMATOLOGY Final Resu Performing Organization Address [facility] de Phone Number [facility] [address] [address], [place] * (ABNORMAL) HEMATOCRIT (02/21/2024 7:28 AM PROFESSOR OF EDUCATION) Only the most recent of6 resultswithin the time period is included. HEMATOCRIT 29.3(L) 33.0 - 51.0 % 02/21/2024 7:46 AM PROFESSOR OF EDUCATION [facility] Blood BLOOD SPECIMEN / Unknown Venipuncture / Unknown 02/21/2024 7:28 AM PROFESSOR OF EDUCATION 02/21/2024 7:40 AM PROFESSOR OF EDUCATION Narrative [facility] - 02/21/2024 7:46 AM PROFESSOR OF EDUCATION Every morning while on IV heparin. Every morning while on IV heparin. Necessary every morning while on IV heparin. us Thomas Mckeon MD HEMATOLOGY Final Resu lt Performing Organization Address [facility] de Phone Number [facility] [address] [address], [place] * XR HUMERUS MIN 2 VIEWS LEFT (02/19/2024 8:19 AM PROFESSOR OF EDUCATION) Anatomical Region Laterality Modality HUMERI, HUMERUS L Digital Radiog erin 02/19/2024 9:14 AM PROFESSOR OF EDUCATION Impressions 02/19/2024 9:14 AM PROFESSOR OF EDUCATION Post ORIF of proximal left humeral shaft fracture without evidence of complication Dictated by Julio Romero MD @ Feb 19 2024 9:14AM (Electronically Signed) [email or web address] Narrative 02/19/2024 9:14 AM PROFESSOR OF EDUCATION For Patients: As a result of the Cures Act, medical imaging exams and procedure reports are released immediately into your electronic medical record. You may view this report before your referring provider. If you have questions, please contact your health care provider. INDICATION: Post up evaluation TECHNIQUE: Two views of the left humerus COMPARISON: Intraoperative images of 02/17/2024 FINDINGS: Post ORIF of proximal left humeral shaft fracture. Intramedullary nail and screws intact. Fracture fragments in good alignment. Procedure Note Julio Romero MD - 02/19/2024 For Patients: As a result of the Cures Act, medical imagingexams and procedure reports are released immediately into your electronicmedical record. You may view this report before your referring provider.If you have questions, please contact your health care provider. INDICATION: Post up evaluation TECHNIQUE: Two views of the left humerus COMPARISON: Intraoperative images of 02/17/2024 FINDINGS: Post ORIF of proximal left humeral shaft fracture. Intramedullary nail andscrews intact. Fracture fragments in good alignment. IMPRESSION: Post ORIF of proximal left humeral shaft fracture without evidence ofcomplication Dictated by Julio Romero MD @ Feb 19 2024 9:14AM (Electronically Signed) [email or web address] Final R esult * XR HUMERUS MIN 2 VIEWS LEFT PORTABLE (02/17/2024 6:09 PM PROFESSOR OF EDUCATION) Anatomical Region Laterality Modality HUMERI, HUMERUS L Digital Radiog erin Narrative 02/17/2024 6:06 PM PROFESSOR OF EDUCATION No radiology involvement necessary. See chart for further information. Meliton Juarez MD GENERAL IMAGING Final Result * XR C-ARM EQUAL OR GREATER 2 HR (02/17/2024 6:07 PM PROFESSOR OF EDUCATION) Anatomical Region Laterality Modality Other Narrative 02/17/2024 6:06 PM PROFESSOR OF EDUCATION 5 minutes 54 seconds fluoroscopy time was provided. See operative/procedure report for further information. Meliton Juarez MD FLUOROSCOPY Final Result * HCHG TUBE PR1, HCHG STYLET PR1 (02/17/2024 4:15 PM PROFESSOR OF EDUCATION) Narrative Cecilio Ray CRNA - 02/17/2024 4:15 PM PROFESSOR OF EDUCATION Cecilio Ray CRNA 02/17/2024 4:16 PM Procedure: ETT Patient location during procedure: OR ETT Properties Mask Ventilation: easy and oral airway Type: straight Location: oral Cuffed: yes Tube Size: 7.5 mm Stylet: yes Laryngoscope Blade: Mac Blade Size: 3 Cormack-Lehane Grade View: 1 Insertion Attempts: 1 Placement Verification: auscultation, end tidal CO2 and symmetrical chest wall movement Assessment: pharynx clear, atraumatic and dentition unchanged Secured at: 23 Measured From: lips Bite Block: soft Difficulty: 0 (not difficult) Leann Bentley MD ANESTHESIA PX NOTE KANIKAE RABDONNELL Final Result * TYPE & SCREEN (02/17/2024 3:22 PM PROFESSOR OF EDUCATION) Only the most recent of2 resultswithin the time period is included. Pathologist [facility] ABORH A Rh Positive 02/17/2024 4:29 PM PROFESSOR OF EDUCATION [facility] ANTIBODY SCREEN Negative Negative 02/17/2024 4:29 PM PROFESSOR OF EDUCATION [facility] SPECIMEN EXPIRATION DATE/TIME 02/20/24 23:59 02/17/2024 4:29 PM PROFESSOR OF EDUCATION [facility] Blood BLOOD SPECIMEN / Unknown Butterfly / Unknown 02/17/2024 3:22 PM PROFESSOR OF EDUCATION 02/17/2024 3:37 PM PROFESSOR OF EDUCATION Leann Bentley MD BLOOD BANK Final R esult [facility] [address] [place] [address], [place] [phone] * ECHO TTE COMPLETE W CONTRAST (02/17/2024 9:37 AM PROFESSOR OF EDUCATION) AORTIC VALVE MEAN PG 15 mmHg EJECTION FRACTION 64 % PEAK TR VELOCITY 2.9 m/s LVEDD 4.8 cm Anatomical Region Laterality Modality Ultrasound 02/17/2024 8:08 AM PROFESSOR OF EDUCATION Narrative 02/17/2024 9:46 AM PROFESSOR OF EDUCATION ECHOCARDIOGRAM NAVA CHACON : 1955 68 years Study Date: 02/17/2024 8:08:48 AM Gender: F BP: 182/80 mmHg Height: 165.00 cm BSA: 2.28 m Weight: 127.00 kg Tech: YOLANDA Referring MD: GODFREY YIP Site: [facility] Reading Location: ANW IP Patient Location: Inpatient. Procedure: 2D w/ Contrast, Color Doppler and Spectral Doppler. Indication for study: CHF Cardiac Rhythm: Irregular.Study quality: Technically limited. Imaging limitations: This study was subject to imaging limitations due to lying in a supine position and left arm braced to left side. Final Impressions: 1. Technically limited exam. 2. Normal left ventricular size, normal wall thickness, normal global systolic function, calculated EF of 64 %. 3. The aortic valve is functioning 21 mm Inspiris bioprosthesis AVR, no stenosis and no regurgitation. There is trivial paravalvular regurgitation. The aortic valve peak velocity is 2.6 m/s, the peak gradient is 27 mmHg, and the mean gradient is 15 mmHg. 4. The mitral valve is sclerotic, mild mitral regurgitation. 5. Mild-moderate tricuspid regurgitation. 6. Elevated estimated pulmonary pressures by tricuspid regurgitation velocity and right atrial pressure (33 mmHg plus RAP). 7. Echo contrast was administered to enhance visualization of all left ventricular segments. Comparison Compared to prior exam images and report of 06/18/22, there has been no significant change. Chamber Sizes and Function Normal left ventricular size, normal wall thickness, normal global systolic function, calculated EF of 64 %. No resting regional wall motion abnormality visualized. Left atrial size is normal. Left atrial pressure is normal. Right ventricular cavity size is not well visualized, global systolic RV function is normal. The right atrium is not well visualized. The pulmonary artery is of normal size and origin. The sinus of Valsalva is not well visualized. The ascending aorta is normal sized. Valves, RV Pressures and Diastolic Function The aortic valve is functioning 21 mm Inspiris bioprosthesis replacement, no stenosis and no regurgitation. There is trivial paravalvular regurgitation. The mitral valve is sclerotic, mild mitral regurgitation. Mitral annular calcification is present. Indeterminate pattern of LV diastolic filling. The tricuspid valve is not well visualized. Tricuspid regurgitation is mild-moderate. The tricuspid regurgitant velocity is 2.9 m/s, the estimated right ventricular systolic pressure is 33 mmHg plus right atrial pressure. There is elevated estimated pulmonary pressure by tricuspid regurgitation velocity and right atrial pressure. The pulmonic valve is not well visualized. No pulmonary regurgitation. Masses, Effusion, Shunts There is no pericardial effusion. The inferior vena cava is not well visualized, respiratory size variation not well visualized. No left to right shunting was detected by limited color flow Doppler interrogation of the interatrial septum. MEASUREMENTS AND CALCULATIONS 2-D Measurements and LV Function: LVID (d) 4.8 cm Planimetered EF 64 % LVID (s) 3.2 cm LV FS% (2D) 33 % IVS (d) 0.9 cm LVOT diameter 1.8 cm LVPW (d) 1.2 cm HR 63 bpm Asc Ao 3.2 cm LA Vol index 33 ml/m2 Diastology: Mitral Tissue Doppler E Peak 1.0 m/s e', Septum 0.05 m/s A Peak 1.3 m/s e', Lateral 0.07 m/s E/A 0.8 E/e' Average 15.75 DT 354 msec Aortic Valve: Vmax 2.6 m/s FUAD (V) 0.86 cm VTI 0.64 m FUAD (I) 0.88 cm LVOT V max 0.9 m/s Max PG 27 mmHg LVOT VTI 0.22 m Mean PG 15 mmHg SV 56 ml Dim Index 0.35 SV index 25 ml/m CO 3.5 l/min CI 1.5 l/min/m Mitral Valve: MVA 2.1 cm MV P 1/2 103 msec MV Mean G 6 mmHg Tricuspid Valve and estimated PA pressures: TR Vmax 2.9 m/s TAPSE 1.9 cm TR maxG 33 mmHg Pulmonic Valve: PV AT 108 msec Contrast documentation: 2 ml diluted Definity, lot #[id number], [facility]# [id number] was administered peripherally to enhance visualization of all left ventricular segments. . This study was interpreted by an [facility] accredited facility. Final Procedure Note García Peralta MD - 02/17/2024 ECHOCARDIOGRAM NAVA CHACON : 1955 68 years Study Date: 02/17/2024 8:08:48 AM Gender: F BP: 182/80 mmHg Height: 165.00 cm BSA: 2.28 m Weight: 127.00 kg Tech: YOLANDA Referring MD: GODFREY YIP Site: [facility] Reading Location: ANW IP Patient Location: Inpatient. Procedure: 2D w/ Contrast, Color Doppler and Spectral Doppler. Indication for study: CHF Cardiac Rhythm: Irregular.Study quality: Technically limited. Imaging limitations: This study was subject to imaging limitations due tolying in a supine position and left arm braced to left side. Final Impressions: 1. Technically limited exam. 2. Normal left ventricular size, normal wall thickness, normal globalsystolic function, calculated EF of 64 %. 3. The aortic valve is functioning 21 mm Inspiris bioprosthesis AVR, nostenosis and no regurgitation. There is trivial paravalvularregurgitation. The aortic valve peak velocity is 2.6 m/s, the peakgradient is 27 mmHg, and the mean gradient is 15 mmHg. 4. The mitral valve is sclerotic, mild mitral regurgitation. 5. Mild-moderate tricuspid regurgitation. 6. Elevated estimated pulmonary pressures by tricuspid regurgitationvelocity and right atrial pressure (33 mmHg plus RAP). 7. Echo contrast was administered to enhance visualization of all leftventricular segments. Comparison Compared to prior exam images and report of 06/18/22, there has been nosignificant change. Chamber Sizes and Function Normal left ventricular size, normal wall thickness, normal globalsystolic function, calculated EF of 64 %. No resting regional wall motionabnormality visualized. Left atrial size is normal. Left atrial pressureis normal. Right ventricular cavity size is not well visualized, globalsystolic RV function is normal. The right atrium is not well visualized.The pulmonary artery is of normal size and origin. The sinus of Valsalvais not well visualized. The ascending aorta is normal sized. Valves, RV Pressures and Diastolic Function The aortic valve is functioning 21 mm Inspiris bioprosthesis replacement,no stenosis and no regurgitation. There is trivial paravalvularregurgitation. The mitral valve is sclerotic, mild mitral regurgitation.Mitral annular calcification is present. Indeterminate pattern of LVdiastolic filling. The tricuspid valve is not well visualized. Tricuspidregurgitation is mild-moderate. The tricuspid regurgitant velocity is 2.9m/s, the estimated right ventricular systolic pressure is 33 mmHg plusright atrial pressure. There is elevated estimated pulmonary pressure bytricuspid regurgitation velocity and right atrial pressure. The pulmonicvalve is not well visualized. No pulmonary regurgitation. Masses, Effusion, Shunts There is no pericardial effusion. The inferior vena cava is not wellvisualized, respiratory size variation not well visualized. No left toright shunting was detected by limited color flow Doppler interrogation ofthe interatrial septum. MEASUREMENTS AND CALCULATIONS 2-D Measurements and LV Function: LVID (d) 4.8 cm Planimetered EF 64 % LVID (s) 3.2 cm LV FS% (2D) 33 % IVS (d) 0.9 cm LVOT diameter 1.8 cm LVPW (d) 1.2 cm HR 63 bpm Asc Ao 3.2 cm LA Vol index 33 ml/m2 Diastology: Mitral Tissue Doppler E Peak 1.0 m/s e', Septum 0.05 m/s A Peak 1.3 m/s e', Lateral 0.07 m/s E/A 0.8 E/e' Average 15.75 DT 354 msec Aortic Valve: Vmax 2.6 m/s FUAD (V) 0.86 cm VTI 0.64 m FUAD (I) 0.88 cm LVOT V max 0.9 m/s Max PG 27 mmHg LVOT VTI 0.22 m Mean PG 15 mmHg SV 56 ml Dim Index 0.35 SV index 25 ml/m CO 3.5 l/min CI 1.5 l/min/m Mitral Valve: MVA 2.1 cm MV P 1/2 103 msec MV Mean G 6 mmHg Tricuspid Valve and estimated PA pressures: TR Vmax 2.9 m/s TAPSE 1.9 cm TR maxG 33 mmHg Pulmonic Valve: PV AT 108 msec Contrast documentation: 2 ml diluted Definity, lot #[id number], [facility]#[id number] was administered peripherally to enhance visualization of allleft ventricular segments. . This study was interpreted by an [facility] accredited facility. Final Godfrey Yip MD ECHO ORD Final Result * XR CHEST 1 VIEW PORTABLE (02/16/2024 8:10 AM PROFESSOR OF EDUCATION) Anatomical Region Laterality Modality HEART, THORAX, CHEST Digital Rad iography 02/16/2024 8:26 AM PROFESSOR OF EDUCATION Impressions 02/16/2024 8:26 AM PROFESSOR OF EDUCATION CHF with pulmonary interstitial edema and possible alveolar edema in the right base Dictated by Julio Romero MD @ 02/16/2024 8:26:14 AM (Electronically Signed) Narrative 02/16/2024 8:26 AM PROFESSOR OF EDUCATION For Patients: As a result of the Cures Act, medical imaging exams and procedure reports are released immediately into your electronic medical record. You may view this report before your referring provider. If you have questions, please contact your health care provider. INDICATION: SOB TECHNIQUE: Semi upright portable AP image of the chest COMPARISON: 05/24/2021 FINDINGS: CHF with pulmonary interstitial edema and possible early alveolar edema in the right base. Borderline cardiomegaly. Prosthetic heart valve. No significant osseous abnormality. Procedure Note Julio Romero MD - 02/16/2024 For Patients: As a result of the Cures Act, medical imagingexams and procedure reports are released immediately into your electronicmedical record. You may view this report before your referring provider.If you have questions, please contact your health care provider. INDICATION: SOB TECHNIQUE: Semi upright portable AP image of the chest COMPARISON: 05/24/2021 FINDINGS: CHF with pulmonary interstitial edema and possible early alveolar edema inthe right base. Borderline cardiomegaly. Prosthetic heart valve. Nosignificant osseous abnormality. IMPRESSION: CHF with pulmonary interstitial edema and possible alveolar edema in theright base Dictated by Julio Romero MD @ 02/16/2024 8:26:14 AM (Electronically Signed) Godfrey Yip MD GENERAL IMAGING Final Result * (ABNORMAL) CBC no diff AM (02/16/2024 5:48 AM PROFESSOR OF EDUCATION) Only the most recent of4 resultswithin the time period is included. WHITE BLOOD COUNT 11.3(H) 4.5 - 11.0 thou/cu mm 02/16/2024 6:25 AM [facility] RED BLOOD COUNT 3.70(L) 4.00 - 5.20 mil/cu mm 02/16/2024 6:25 AM [facility] HEMOGLOBIN 10.6(L) 12.0 - 16.0 g/dL 02/16/2024 6:25 AM [facility] HEMATOCRIT 32.7(L) 33.0 - 51.0 % 02/16/2024 6:25 AM [facility] MCV 88 80 - 100 fL 02/16/2024 6:25 AM [facility] MCH 28.6 26.0 - 34.0 pg 02/16/2024 6:25 AM [facility] MCHC 32.4 32.0 - 36.0 g/dL 02/16/2024 6:25 AM [facility] RDW 14.5 11.5 - 15.5 % 02/16/2024 6:25 AM [facility] PLATELET COUNT 313 140 - 440 thou/cu mm 02/16/2024 6:25 AM [facility] MPV 13.4(H) 6.5 - 11.0 fL 02/16/2024 6:25 AM [facility] NRBC 0.0 % 02/16/2024 6:25 AM [facility] ABS NRBC 0.0 thou /cu mm 02/16/2024 6:25 AM [facility] Blood BLOOD SPECIMEN / Unknown Venipuncture / Unknown 02/16/2024 5:48 AM PROFESSOR OF EDUCATION 02/16/2024 6:08 AM [facility] us Thomas Mckeon MD HEMATOLOGY Final Resu lt [facility] [address] [place] [address], [place] * Sodium AM (02/16/2024 5:48 AM PROFESSOR OF EDUCATION) Only the most recent of2 resultswithin the time period is included. SODIUM 136 136 - 145 mmol/L 02/16/2024 6:42 AM PROFESSOR OF EDUCATION [facility] Blood BLOOD SPECIMEN / Unknown Venipuncture / Unknown 02/16/2024 5:48 AM PROFESSOR OF EDUCATION 02/16/2024 6:08 AM PROFESSOR OF EDUCATION Thomas Mckeon MD CHEMISTRY Final Resu lt Performing Organization Address City/[facility]/ZIP Co de Phone Number [facility] [address] [place] [address], [place] * Potassium AM (02/16/2024 5:48 AM PROFESSOR OF EDUCATION) Only the most recent of3 resultswithin the time period is included. POTASSIUM 4.7 3.5 - 5.1 mmol/L 02/16/2024 6:42 AM PROFESSOR OF EDUCATION [facility] Blood BLOOD SPECIMEN / Unknown Venipuncture / Unknown 02/16/2024 5:48 AM PROFESSOR OF EDUCATION 02/16/2024 6:08 AM PROFESSOR OF EDUCATION Thomas Mckeon MD CHEMISTRY Final Resu lt Performing Organization Address City/[facility] Co de Phone Number [facility] [address] [place] [address], [place] * (ABNORMAL) Creatinine AM (02/16/2024 5:48 AM PROFESSOR OF EDUCATION) Only the most recent of6 resultswithin the time period is included. eGFR 85(L) >90 mL/min/1.7 3m2 02/16/2024 6:42 AM PROFESSOR OF EDUCATION [facility] Comment:As of 2021, eG FR is calculated by the CKD-EPI creatinine equation without race adjustment. eGFR can be influenced by muscle mass, exercise, and diet. The reported eGFR is an estimation only and is only applicable if the renal function is stable. CREATININE 0.77 0.50 - 0.90 mg/dL 02/16/2024 6:42 AM PROFESSOR OF EDUCATION [facility] Blood BLOOD SPECIMEN / Unknown Venipuncture / Unknown 02/16/2024 5:48 AM PROFESSOR OF EDUCATION 02/16/2024 6:08 AM PROFESSOR OF EDUCATION Thomas Mckeon MD CHEMISTRY Final Resu lt Performing Organization Address [facility]/ZIP Co de Phone Number [facility] [address] [place] [address], [place] * (ABNORMAL) PRO-BNP (02/16/2024 5:48 AM PROFESSOR OF EDUCATION) PRO-BNP 1,259(H) <125 pg/mL 02/16/2024 9:40 AM PROFESSOR OF EDUCATION [facility] Blood BLOOD SPECIMEN / Unknown Venipuncture / Unknown 02/16/2024 5:48 AM PROFESSOR OF EDUCATION 02/16/2024 6:08 AM PROFESSOR OF EDUCATION Narrative [facility] - 02/16/2024 9:40 AM PROFESSOR OF EDUCATION The following cut-points have been suggested for the use of proBNP for the diagnostic evaluation of heart failure (HF) in patient with acute dyspnea. Patients with eGFR >= 60 Diagnosis (rule in CHF) <50 Years Old 450 pg/mL 50 - 75 Years Old 900 pg/mL >75 Years Old 1800 pg/mL Exclusion (rule out CHF) Age Independent 300 pg/mL A cutoff of 1200 pg/mL for patients with an eGFR <60 yields a diagnostic sensitivity of 89% and specificity of 72% for acute congestive heart failure. Godfrey Yip MD SEND OUTS Final Result Performing Organization Address [facility]/ZIP Co de Phone Number [facility] [address] [place] [id number], [place] * BUN (02/14/2024 10:52 AM PROFESSOR OF EDUCATION) BUN 20 8 - 23 mg/dL 02/14/2024 11:30 AM PROFESSOR OF EDUCATION [facility] Blood BLOOD SPECIMEN / Unknown Butterfly / Unknown 02/14/2024 10:52 AM PROFESSOR OF EDUCATION 02/14/2024 10:59 AM PROFESSOR OF EDUCATION us Thomas Mckeon MD CHEMISTRY Final Resu lt [facility] [address] [place] [id number], [place] * SCAN CORRESP-LABORATORY RESULTS (02/13/2024 10:56 AM PROFESSOR OF EDUCATION) Only the most recent of2 resultswithin the time period is included. Narrative 02/13/2024 10:56 AM PROFESSOR OF EDUCATION Ordered by an unspecified provider. us Other Clinical Staff OTHER Final Resul t * SCAN CORRESP-EKG RESULTS (02/13/2024 10:56 AM PROFESSOR OF EDUCATION) Narrative 02/13/2024 10:56 AM PROFESSOR OF EDUCATION Ordered by an unspecified provider. us Other Clinical Staff OTHER Final Resul t * SCAN CORRESP-IMAGING (02/13/2024 10:56 AM PROFESSOR OF EDUCATION) Anatomical Region Laterality Modality Other Narrative 02/13/2024 10:56 AM PROFESSOR OF EDUCATION Ordered by an unspecified provider. us Other Clinical Staff OTHER Final Resul t * SCAN-RADIOLOGY REPORT (02/12/2024 12:00 AM PROFESSOR OF EDUCATION) Only the most recent of3 resultswithin the time period is included. Anatomical Region Laterality Modality Other us Scanner OTHER Final Result * LIPID PANEL W REFLEX MEASURED LDL (11/11/2022 3:04 PM CDT) CHOLESTEROL,TOTAL 194 100 - 199 mg/dL 11/11/2022 11:58 PM CDT [facility] Comment: Cholesterol, Total Reference Ranges Desirable <200 mg/dL Borderline 200-239 mg/dL High >=240 mg/dL TRIGLYCERIDES 137 <150 mg/dL 11/11/2022 11:58 PM CDT [facility] HDL CHOLESTEROL 52 >40 mg/dL 11:58 PM CDT [facility] NON-HDL CHOLESTEROL 142 <145 mg/dl 11/11/2022 11:58 PM CDT [facility] CHOL/HDL RATIO 3.73 <4.50 11/11/2022 11:58 PM CDT [facility] LDL CHOLESTEROL 115 <=130 mg/dL 11/11/2022 11:58 PM CDT [facility] VLDL CHOLESTEROL 27 <=30 mg/dL 11/11/2022 11:58 PM CDT [facility] PROVIDER ORDERED STATUS RANDOM 11/11/2022 11:58 PM CDT [facility] Blood BLOOD SPECIMEN / Unknown Venipuncture / Unknown 11/11/2022 3:04 PM CDT 11/11/2022 3:06 PM CDT us Hilda Cheema MD CHEMISTRY Final R esult [facility] [address] [place] [address], * (ABNORMAL) XR DXA BONE DENSITY 2 SITES AXIAL [47476.1] (05/01/2022 1:35 PM CDT) Anatomical Region Laterality Modality Spine, HIPS, HIPL, HIPR Other Impressions 05/07/2022 12:55 PM CDT Osteopenia. RECOMMENDATIONS: The National Osteoporosis Foundation recommends pharmacologic treatment for patients with T-scores of -2.5 or less, patients with prior history of fragility fractures, or patients with 10-year probability of greater than 3% at hips or greater than 20% of suffering major osteoporotic fractures. Recommend continued optimization of calcium and vitamin D intake through dietary means and/or supplementation and regular exercise. Repeat scan recommended in 3-5 years. Ashley McLeran PA-C [facility] 05/07/2022 Narrative 05/07/2022 12:55 PM CDT For Patients: Results are automatically released to your [facility] ([employer]) account once available, in compliance with federal regulations. This means that you may see your results before your provider has had a chance to review them. Please allow 2-3 business days for your provider to comment on the results. XR DXA Bone Mineral Density (BMD) EXAM LOCATION: [facility] [address] [address] PATIENT NAME: Nava Chacon DATE OF : 1955 EXAM DATE: 05/01/2022 REQUESTING PROVIDER: Hilda Cheema MD GENDER AT : female HEIGHT: 5' 5 (09/20/2021) WEIGHT: 188 lb (04/03/2022) MENOPAUSAL STATUS: Postmenopausal RACE/ETHNICITY: White RISK FACTORS: Smoking (prior) and White Race CURRENT MEDICATION FOR BONE LOSS: NONE INDICATION: Post-Menopause COMPARISON DATE(S): None DXA scans are compared to prior studies for a patient only when the two (or more) studies were performed on the same scanner. It is not possible to compare data generated on one scanner to data from another because there are not standards in DXA equipment. This applies even if the two scanners are made by the same beater head. PROCEDURE: Dual-energy x-ray absorptiometry performed with routine technique. Reporting is completed in the form of a T-score. The T-score represents the standard deviation from peak bone mass based on young healthy adult. A Z-score is used for diagnosis in premenopausal women, and for men under the age of 50. FINDINGS: RESULT LUMBAR SPINE L1 - L4 BMD: 1.110 g/cm2 T-Score: - 0.7 Z-Score: + 0.2 Change from prior: None RESULTS FEMUR Left femoral neck BMD: 0.864 g/cm2 T-Score: - 1.2 Z-Score: - 0.2 Change from prior: None Right femoral neck BMD: 0.860 g/cm2 T-Score: - 1.3 Z-Score: - 0.2 Change from prior: None Left hip BMD: 0.877 g/cm2 T-Score: - 1.0 Z-Score: - 0.3 Change from prior: None Right hip BMD: 0.874 g/cm2 T-Score: - 1.1 Z-Score: - 0.3 Change from prior: None WHO criteria: Normal: T-score at or above -1 SD Osteopenia: T-score between -1.1 and -2.4 SD Osteoporosis: T-score at or below -2.5 SD FRAX RISK CALCULATION (USED FOR OSTEOPENIA ONLY): 10-year probability of major osteoporotic fracture: 8.3%. 10-year probability of hip fracture: 0.8%. us Hilda Cheema MD DEXA Final R esult * XR MAMMO DELFINA BILAT SCREEN (05/01/2022 1:15 PM CDT) Anatomical Region Laterality Modality BREASTS, Breast Left, Breast Right Bilateral Mammography Impressions 05/01/2022 4:15 PM CDT There is no radiographic evidence for malignancy. Recommend annual mammograms. MAMMOGRAM ASSESSMENT: ACR 1 Negative PATIENTS: You will also receive a letter with your examination results in an easy to read format. If you have questions about your results, please contact your referring provider. Narrative 05/01/2022 4:15 PM CDT For Patients: As a result of the Century Cures Act, medical imaging exams and procedure reports are released immediately into your electronic medical record. You may view this report before your referring provider. If you have questions, please contact your health care provider. XR MAMMO DELFINA BILAT SCREEN [[id number]] CLINICAL HISTORY: This is an asymptomatic 66 y.o. patient. INDICATION FOR EXAM: Mammogram Screening. TECHNIQUE: CC & MLO views were obtained. This study was evaluated with the assistance of Computer-Aided Detection. Breast Tomosynthesis was used in interpretation. COMPARISON FILM: Yes 12/28/19 [facility] 12/07/18 [facility] FINDINGS: The breasts are almost entirely fatty. There are no dominant masses, suspicious micro calcifications or areas of architectural distortion. us Hilda Cheema MD MAMMO Final R esult * COLONOSCOPY (02/03/2020 11:11 AM PROFESSOR OF EDUCATION) 02/03/2020 11:1 1 AM PROFESSOR OF EDUCATION Narrative Transcriptions Ruben Ritter MD - 02/03/2020 12:00 PM CST Patient Name: Nava Chacon Procedure Date: 02/03/2020 Gender: Female Date of : 1955 Admit Type: Outpatient Procedure: Colonoscopy Proceduralist: Ruben Ritter MD , Mirna Rivera (Nurse) Referring MD: Roxanna Mcclure Indications/Pre-Op Diagnosis: Surveillance: Personal history ofadenomatous polyps on last colonoscopy > 5 years ago,Last colonoscopy: June 2011, Incidental diarrheanoted Medications: Fentanyl 100 micrograms IV, Midazolam 2 mgIV, The level of sedation administered wasmoderate Procedure Description: The patient had risks, benefits and alternatives explained to andgave informed consent. The patient had a stable cardiopulmonary status and judged an adequate candidate for conscious sedation. The [id number] was passed through the anus and advanced tothe cecum, identified by appendiceal orifice and ileocecal valve. The colonoscopy was performed without difficulty. The patient toleratedthe procedure well. The quality of the bowel preparation was good. The ileocecal valve, appendiceal orifice, and rectum were photographed. Complications: No immediate complications. Estimated Blood Loss & Specimen: Estimated blood loss: none. Specimen collected - Yes and sent to Laboratory Findings: The perianal and digital rectal examinations were normal. The entire examined colon appeared normal on direct and retroflexion views. Biopsies for histology were taken with a cold forceps from the entire colon for evaluation of microscopic colitis. Impressions/Post-Op Diagnosis: - The entire examined colon is normal on direct and retroflexionviews. - Biopsies were taken with a cold forceps from the entire colon for evaluation of microscopic colitis. Recommendation: - Patient has a contact number available for emergencies. The signsand symptoms of potential delayed complications were discussed with the patient. Return to normal activities tomorrow. Written discharge instructions were provided to the patient. - Resume previous diet. - Continue present medications. - Await pathology results. - Repeat colonoscopy in 5 years for surveillance. Moderate Sedation: Moderate (conscious) sedation was administered by the endoscopy nurse and supervised by the endoscopist. The following parameters were monitored: oxygen saturation, heart rate, respiratory rate, blood pressure, adequacy of pulmonary ventilation and reponse to care. [facility] flow[facility] and nursing notes for moderate sedation details. Total physician intraservice time was 22 minutes. Ruben Ritter MD 02/03/2020 12:00:28 PM This report has been signed electronically. Note Initiated On: 02/03/2020 11:11 AM Procedure Code(s): --- Professional --- 50686, Colonoscopy, flexible; with biopsy, single or multiple Diagnosis Code(s): --- Professional --- Z86.010, Personal history of colonicpolyps CPT copyright 2019 [employer]. All rights reserved. The codes documented in this report are preliminary and upon health information coder reviewmay be revised to meet current compliance requirements. Scope In: 11:37:54 AM Scope Withdrawal Time 0 hours 8 minutes 13 seconds Scope Out: 11:56:43 AM us Ruben Ritter MD PROCEDURE ORD Final Res ult * ANTI HCV (11/16/2018 3:04 PM CDT) HEPATITIS C ANTIBODY Non-React иван Non-React иван 11/17/2018 2:58 AM CDT [facility] Comment:Antibodies to HCV no t detected; does not exclude the possibility of exposure to HCV. Blood BLOOD SPECIMEN / Unknown Venipuncture / Unknown 11/16/2018 3:04 PM CDT 11/16/2018 3:04 PM CDT us Roxanna Mcclure MD SEND OUTS Final R esult [facility] [address] [place] [address], [place] from Last 3 Months or Most Recently Relevant to Health Maintenance Insurance [employer] MEDICARE PART A HB ONLY MEDICARE PART B HB ONLY [employer] CHOICE PPO MR HC MEDICARE PPS FOR LIFE Advance Directives Documents on File Type Date Recorded Patient Public Relations Supervisor Expl anation POLST 06/20/2022 Healthcare Directive 05/11/2021 INVALID : MISSING PAGE 8, 05/11/2021 * Full Code (Latest Code Status on File) Date Activated Date Inactivated Comments 02/12/2024 9:58 PM 02/23/2024 4:05 PM Question Answer Comments Code Status Discussion: Reviewed Preferences * Full Code Date Activated Date Inactivated Comments 02/12/2024 8:57 PM 02/12/2024 9:58 PM Question Answer Comments Code Status Discussion: Other * Full Code Date Activated Date Inactivated Comments 05/11/2021 5:29 PM 05/25/2021 3:27 PM Question Answer Comments Code Status Discussion: Reviewed Preferences * Full Code Date Activated Date Inactivated Comments 04/12/2021 8:35 PM 04/28/2021 8:55 PM Question Answer Comments Code Status Discussion: Discussed * Full Code Date Activated Date Inactivated Comments 03/18/2021 3:07 PM 03/27/2021 7:59 PM Question Answer Comments Code Status Discussion: Reviewed Preferences Care Teams Tool Drawing Checker Relationship Specialty Start Date End Date Hilda Cheema MD [address] [place] [id number] PCP - General Family Practice 02/08/21 Melvi Maier MBBS [address] [facility] [address] [place] [address] Endocrinology Endocrinology 10/17/20 Roxanna Leon, RN [address] [place] [address] Nurse Navigator Oncology 12/12/20 [facility] [address] [place] [address] 03/27/21 [facility] [address] [address] 05/25/21 Ariella Rowe COTA [address] [place] [address] Occupational Therapy 02/24/24
[2024-03-17 21:17] VITALS: BP 144/84; PULSE 86; RESP 18; TEMP 36.4; O2SAT 97; BMI 34.9
--- OUTSIDE RECORDS SUMMARY | 2024-03-17 21:17 | XMS_ITS | Continuity of Care Document ---
Author Organization [facility] Address [address] [address] [place] [address] Phone Care Team Providers Care Geopolitics Teacher Name Role Phone Mary Cruz Unavailable Unavailable Procedures Procedure Date Subsqt Hosp-da E&m Minr Compl 1 Init Hosp-da E&m Mod Severity 1 Ugi Endo; W/us Guid Asp/bx Advance Directives Directive Yes / No Effective Date File Name No Information Encounters Encounter Description Practice Location Reason(s) For Visit Diagnoses Date Provider Providers Copied on Encounter Subsqt Hosp-da E&m Minr Compl [facility], [address] [address], [place], [place], [id number], [place] tel:[phone] [facility] No Information 1 Anjel Hernandez. [address] [place] [address], [place] [address], [place], [place], [id number], [place]. tel:[phone] Referring Provider: Mary Burk, [address] [place] [address], [id number] . tel:[phone] Init Hosp-da E&m Mod Severity [facility], [address] [address], [place], [place], [id number], [place] tel:[phone] [facility] No Information 1 Izabel Romero. [address] [place] [address], [facility] [address], [place], [id number], [place]. tel:[phone] Referring Provider: Roxanna Mcclure MD , [address] [place], [address]. tel:[phone] Family History Family Member Type Diagnosis Age At Onset No Information Payers Payer name Insurance type Covered republican ID Jimmy lopez(s) [facility] [id number] Social History Type Description Quantity Date Captured Comments Sex Female Smoking Status No Information Chief Complaint And Reason For Visit No Information Reason For Referral Reason For Referral No Information History Of Present Illness Encounter Date Complaint History Of Prese nt Illness No Information Functional Status Date Functional Assessmen t No Information Instructions Date Instruction Additional Infor mation No Information Assessments Type Assessment Date No Information Patient Care Teams Name Effective Dates (start - stop) Status Members No Information
--- NOTE | 2024-03-17 21:30 | ED.GENADULT ---
HPI - General Adult General Date Seen: 03/17/24 Chief complaint: Diarrhea Stated complaint: fall Time Seen by Provider: 03/17/24 21:11 History of Present Illness HPI narrative: Patient is a 68-year-old woman who comes in by EMS from home. She actually just got back home she says 2 days ago. [facility] suffering a proximal humerus fracture which required surgical repair and then rehab. She says there was something going around the [facility] facility although she does not know what. She says there was a day were upper but he had to stay in the rooms because they were trying to contain some kind of illness. She had dinner tonight and then developed nausea, over the past couple hours has had repeated episodes of vomiting and diarrhea. She has pain in her left shoulder where she is status post surgical repair of that fracture, but she does not have significant abdominal pain. No reported bloody stools. No fevers. Related Data Home Medications ?Medication ?Instructions ?Recorded ?Confirmed amlodipine 10 mg tablet 10 mg PO DAILY 01/24/22 02/12/24 furosemide 40 mg tablet 40 mg PO DAILY 01/24/22 02/12/24 warfarin 2 mg tablet 4 - 6 mg PO QPM 01/24/22 02/12/24 aspirin 81 mg tablet,delayed 81 mg PO DAILY 02/25/22 02/12/24 release (Adult Aspirin Regimen) atorvastatin 40 mg tablet 40 mg PO DAILY 02/25/22 02/12/24 cholecalciferol (vitamin D3) 25 25 mcg PO DAILY 06/17/22 02/12/24 mcg (1,000 unit) capsule coenzyme Q10 100 mg capsule 100 mg PO DAILY 06/17/22 02/12/24 carvedilol 12.5 mg tablet 12.5 mg PO BID 02/12/24 02/12/24 fluoxetine 10 mg capsule 10 mg PO DAILY 02/12/24 02/12/24 insulin aspart U-100 100 unit/mL 12 - 14 unit subcut TIDWM 02/12/24 02/12/24 (3 mL) subcutaneous pen (Novolog FlexPen U-100 Insulin aspart) insulin glargine 100 unit/mL (3 30 unit subcut HS 02/12/24 02/12/24 mL) subcutaneous pen (Lantus Solostar U-100 Insulin) lisinopril 40 mg tablet 40 mg PO DAILY 02/12/24 02/12/24 Allergies Allergy/AdvReac Type Severity Reaction Status Date / Time phytonadione (vitamin K1) Allergy Severe Anaphylaxis Verified 10/14/23 13:22 enoxaparin (From Lovenox) Allergy Diarrhea Verified 10/14/23 13:22 menaquinone-7 (vitamin K2) Allergy Anaphylaxis Verified 10/14/23 13:22 (vitamin K2) Review of Systems Status of ROS: Reports: 10 or more systems reviewed and unremarkable except as noted in History and below [facility] Medical History Anemia ?D64.9 - Anemia, unspecified (ICD-10) Ataxia ?R27.0 - Ataxia, unspecified (ICD-10) Chronic anticoagulation ?Z79.01 - halfway (current) use of anticoagulants (ICD-10) Poorly controlled diabetes mellitus ?E11.65 - Type 2 diabetes mellitus with hyperglycemia (ICD-10) Cognitive impairment ?R41.89 - Other symptoms and signs involving cognitive functions and awareness (ICD-10) Falls ?W19.XXXA - Unspecified fall, initial encounter (ICD-10) Sprain of foot, left ?S93.602A - Unspecified sprain of left foot, initial encounter (ICD-10) Injury of knee, right ?S89.91XA - Unspecified injury of right lower leg, initial encounter (ICD-10) Frailty ?R54 - Age-related physical debility (ICD-10) Osteoarthritis of right knee ?M17.11 - Unilateral primary osteoarthritis, right knee (ICD-10) Medication noncompliance due to cognitive impairment ?R41.9 - Unspecified symptoms and signs involving cognitive functions and awareness (ICD-10) ?Z91.148 - Patient's other noncompliance with medication regimen for other reason (ICD-10) Heart failure ?I50.9 - Heart failure, unspecified (ICD-10) History of DVT (deep vein thrombosis) ?Z86.718 - Personal history of other venous thrombosis and embolism (ICD-10) Endocarditis ?I38 - Endocarditis, valve unspecified (ICD-10) Hyperlipidemia ?E78.5 - Hyperlipidemia, unspecified (ICD-10) Hypertension ?I10 - Essential (primary) hypertension (ICD-10) Diabetic polyneuropathy ?E11.42 - Type 2 diabetes mellitus with diabetic polyneuropathy (ICD-10) Diabetes ?E11.9 - Type 2 diabetes mellitus without complications (ICD-10) Anticoagulated with warfarin ?Z79.01 - halfway (current) use of anticoagulants (ICD-10) Pleural effusion on left ?J90 - Pleural effusion, not elsewhere classified (ICD-10) Multiple subsegmental pulmonary emboli without acute cor pulmonale ?I26.94 - Multiple subsegmental pulmonary emboli without acute cor pulmonale (ICD-10) History of Clostridioides difficile infection ?Z86.19 - Personal history of other infectious and parasitic diseases (ICD-10) Enteritis due to Clostridium difficile ?A04.72 - Enterocolitis due to Clostridium difficile, not specified as recurrent (ICD-10) Congestive heart failure ?I50.9 - Heart failure, unspecified (ICD-10) Cellulitis of right lower extremity ?L03.115 - Cellulitis of right lower limb (ICD-10) Acute kidney injury ?N17.9 - Acute kidney failure, unspecified (ICD-10) Surgical History 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) History of partial colectomy ?Z90.49 - Acquired absence of other specified parts of digestive tract (ICD-10) History of partial gastrectomy ?Z90.3 - Acquired absence of stomach [part of] (ICD-10) H/O splenectomy ?Z90.81 - Acquired absence of spleen (ICD-10) History of open heart surgery (05/17/21) ?Z98.890 - Other specified postprocedural states (ICD-10) History of appendectomy ?Z90.49 - Acquired absence of other specified parts of digestive tract (ICD-10) Family History Mother Colon cancer Diabetes Cirrhosis Brother Colon cancer Father Stroke High blood pressure Heart disease Social History Narrative: She lives at home with her daughter, Oscar, and her . She reports they live in a small home. She primarily walks around the house holding onto furniture. She has a cane that she occasionally uses, especially when she goes out. She lives on [address]. Her daughter sets up her medications but notes that she does not know if her mom is reliably taking her medications. Daughter specifically notes that her mom has probably been forgetting her insulin at times and her warfarin has been missed at least a couple times in the past week or so. What is your current living situation?: I presently have a place to live Problems where you live: no known problems Problems where you live details: constant remodeling of older home In the past 12 months, utilities in danger of being shut off: no In past 12 months, lack of transportation kept you from medical appts, meetings, work, or getting things needed for daily living: no In the past 12 mos, have been you worried that your food would run out before you had money to buy more?: never true In the past 12 mos, the food you bought just didn't last and you didn't have money to buy more?: never true Are you following a diet prescribed by a doctor: Yes (diabetic, heart healthy) Highest level of school completed/degree received: Associate degree: academic program Smoking Status: Former smoker Do you use any of these nicotine containing products: None Second hand tobacco smoke exposure: No How often do you have a drink containing alcohol: never How often do you have six or more drinks on one occasion: Never AUDIT-C Alcohol total score: 0 Non-prescribed substance use: denies use Caffeine: No How often does anyone, including family, friends and others, physically hurt you: never How often does anyone, including family, friends and others, insult or talk down to you: never How often does anyone, including family, friends and others, threaten you with harm: never How often does anyone, including family, friends and others, scream or curse at you: never Gender Identity: female service: Yes Exam Narrative: Exam Narrative: Vital signs reviewed In general, alert, nontoxic elderly woman. Head: Normocephalic, atraumatic. Eyes: Sclera clear. Pupils equal and reactive. ENT: Mucous membranes moist. Neck: Supple without adenopathy. Heart: Regular rate and rhythm without murmur. Lungs: Clear. No increased work of breathing, crackles or wheezes. Abdomen: Soft, nontender to palpation. Extremities: Well perfused, pulses intact. No significant edema. Neurologic: Alert, conversant. Speech fluent, face symmetric. Moves all extremities equally. Skin: Warm, dry well perfused. Affect: Normal. Const: Vital Signs, click to edit/add: Vital Signs - 24 hr 03/17/24 21:17 Temperature 97.6 F Pulse Rate [Pulse Oximeter] 86 Respiratory Rate 18 Blood Pressure [Ri ght Upper Arm] 144/84 H Pulse Oximetry 97 Oxygen Delivery Me thod Room Air Course Course ED Course: Patient was covered with stool on arrival and required significant cleaned up from nursing staff. She is marginally functional at home at baseline, I do not think she will be able to manage with profuse diarrhea and vomiting. Symptoms are most likely viral although with recent [facility] stay will also get a C diff. Labs to evaluate blood counts, electrolytes etcetera pending. Will place an IV and give 500 mL normal saline to start. She is not tachycardic nor hypotensive at this time. She is anticoagulated on Coumadin, reports a fall earlier in the day without reported injuries. 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 I do not think she will be able to manage this illness at home, she will be admitted for symptom management and hydration. Labs are notable for a mildly elevated white blood cell count of 13. Lactate is 2.4, CRP is less than 0.5. She does have a markedly elevated blood sugar of 359, but she has a normal CO2. C diff was negative. COVID, influenza and RSV were negative. Vital Signs Vital signs: Initial Vital Signs Temperature 97.6 F 03/17/24 21:17 Temperature Source Temporal Artery Scan 03/17/24 21:17 Pulse Rate 86 03/17/24 21:17 Pulse Rhythm Regular 03/17/24 21:17 Respiratory Rate 18 03/17/24 21:17 Blood Pressure 144/84 H 03/17/24 21:17 Blood Pressure Mean 104 03/17/24 21:17 Blood Pressure Position Sitting 03/17/24 21:17 Pulse Oximetry 97 03/17/24 21:17 Oxygen Delivery Method Room Air 03/17/24 21:17 Vital Signs Temperature 97.6 F 03/17/24 21:17 Pulse Rate 86 03/17/24 21:17 Respiratory Rate 18 03/17/24 21:17 Blood Pressure 144/84 H 03/17/24 21:17 Pulse Oximetry 97 03/17/24 21:17 Oxygen Delivery Method Room Air 03/17/24 21:17 Temperature 97.6 F 03/17/24 21:17 Pulse Rate 86 03/17/24 21:17 Respiratory Rate 18 03/17/24 21:17 Blood Pressure 144/84 H 03/17/24 21:17 Pulse Oximetry 97 03/17/24 21:17 Oxygen Delivery Method Room Air 03/17/24 21:17 Medications Administered Medications: Discontinued Medications Generic Name Dose Route Start Last Admin Trade Name Freq PRN Reason Stop Dose Admin Sodium Chloride 500 mls @ 500 mls/hr 03/17/24 21:27 03/17/24 22:36 0.9 % Sodium Chloride 500 Ml IV 03/17/24 22:26 Infused .Q1H ONE Infusion Ondansetron HCl 4 mg 03/17/24 21:27 03/17/24 21:40 Ondansetron 2 Mg/Ml Inj IVP 03/17/24 21:28 4 mg ONCE ONE Administration Medical Decision Making Lab Data Labs: Lab Results 03/17/24 03/17/24 Range/Units 21:27 21:35 WBC 13.61 H (4.50-11.00) K/uL RBC 4.69 (4.00-5.20) m/uL Hgb 13.1 (12.0-16.0) gm/dL Hct 41.8 (33.0-51.0) % MCV 89 (80-100) fL MCH 28 (26-34) pg MCHC 31 L (32-36) gm/dL RDW Coeff of Aditi 14.9 (11.5-15.5) % Plt Count 414 (140-440) K/uL Neut % (Auto) 91.9 H (42.0-72.0) % Lymph % (Auto) 4.7 L (20-44) % [place] % (Auto) 2.6 (0.0-11.0) % Eos % (Auto) 0.4 (0.0-7.0) % Baso % (Auto) 0.1 (0.0-3.0) % Neut # (Auto) 12.50 H (1.7-7.0) K/uL Lymph # (Auto) 0.60 L (0.90-2.90) K/uL [place] # (Auto) 0.40 (0.00-0.90) K/UL Eos # (Auto) 0.10 (0.00-0.50) K/uL Baso # (Auto) 0.00 (0.00-0.30) K/uL Abs Immat Gran (auto) 0.00 (0.00-0.30) K/uL Imm/Tot Granulo (auto) 0.3 % INR 4.52 H (0.91-1.10) Sodium 135 (135-149) mmol/L Potassium 4.0 (3.6-5.1) mmol/L Chloride 105 (96-114) mmol/L Carbon Dioxide 22 (20-32) mmol/L Anion Gap 8 (7-15) mEq/L BUN 16 (7-30) mg/dL Creatinine 0.9 (0.5-1.5) mg/dL Estimated Creat Clear 49.12 Estimated GFR 70 ml/min Glucose 359 H* (60-115) mg/dL Lactate 2.4 H (0.5-1.9) mmol/L Calcium 8.9 (8.4-10.6) mg/dL Magnesium 1.7 (1.5-2.6) mg/dL C-Reactive Protein < 0.5 L (0.5-1.0) mg/dL Stl C. diff Tox B Gene Negative (Negative) Stl C. diff [id number] PRESUMPTIVE NEGATIVE (Negative) SARS-CoV-2 (PCR) Negative SARS-CoV-2 (Negative) Influenza Type A (PCR) Negative PCR FLU A (Negative) Influenza Type B (PCR) Negative PCR FLU B (Negative) RSV (PCR) Negative PCR RSV (Negative) Discharge Plan Discharge Clinical Impression: Gastroenteritis, Ataxia Clinical Impression: (Ruled Out): Traveler's diarrhea Patient Disposition: Admitted As Observation Condition: Stable
[2024-03-17] MEDS: ONDANSETRON 2 MG/ML inj 4 MG IVP (21:40)
[2024-03-17] MEDS: 0.9 % SODIUM CHLORIDE 500 ML 500 ML IV (21:40)
[2024-03-17 21:49] LABS: Lactate Sepsis w/Reflex* 2.4 mmol/L (0.5-1.9)
[2024-03-17 21:54] LABS: Basophils Percent Auto 0.1 % (0.0-3.0); Eosinophils Percent Auto 0.4 % (0.0-7.0); Hematocrit 41.8 % (33.0-51.0); Hemoglobin* 13.1 gm/dL (12.0-16.0); Immature Granulocytes Pct Auto 0.3 %; Lymphocytes Percent Auto 4.7 % (20-44); Mean Corpuscular HGB Conc 31 gm/dL (32-36); Mean Corpuscular Hemoglobin 28 pg (26-34); Mean Corpuscular Volume 89 fL (80-100); Monocytes Percent Auto 2.6 % (0.0-11.0); Neutrophils Percent Auto 91.9 % (42.0-72.0); Platelet Count* 414 K/uL (140-440); RDW Coefficient of Variation % 14.9 % (11.5-15.5); Red Blood Count 4.69 m/uL (4.00-5.20); White Blood Count* 13.61 K/uL (4.50-11.00)
[2024-03-17 22:23] LABS: INR 4.52 (0.91-1.10); Prothrombin Time 46.6 Seconds
[2024-03-17 22:27] LABS: Slide Review Reflex No
[2024-03-17 22:32] LABS: Chloride* 105 mmol/L (96-114); Sodium* 135 mmol/L (135-149)
[2024-03-17 22:35] LABS: Anion Gap 8 mEq/L (7-15); Blood Urea Nitrogen* 16 mg/dL (7-30); Carbon Dioxide* 22 mmol/L (20-32); Creatinine* 0.9 mg/dL (0.5-1.5); Est. Creatinine Clearance* 49.12; Estimated Glomerular Filt Rate 70 ml/min
[2024-03-17 22:36] LABS: Calcium* 8.9 mg/dL (8.4-10.6); Magnesium* 1.7 mg/dL (1.5-2.6)
[2024-03-17 22:38] LABS: PCR FLU A Negative PCR FLU A (Negative); PCR FLU B Negative PCR FLU B (Negative); PCR RSV Negative PCR RSV (Negative); SARS PCR* Negative SARS-CoV-2 (Negative)
[2024-03-17 22:39] LABS: C Reactive Protein* < 0.5 mg/dL (0.5-1.0); Glucose* 359 mg/dL (60-115)
[2024-03-17 22:48] LABS: C.Difficile Negative (Negative); CDIFFEPI 027 PRESUMPTIVE NEGATIVE (Negative)
[2024-03-17 23:17] VITALS: BP 151/68; RESP 16; RESP 18; TEMP 36.6; O2SAT 95; O2SAT 97
[2024-03-17 23:19] VITALS: O2SAT 97
[2024-03-17 23:20] VITALS: BP 132/70; PULSE 79; RESP 18; TEMP 36.4; O2SAT 97
--- NOTE | 2024-03-17 23:23 | PM.IMHP1 ---
Hospitalist- H&P: HPI History of Present Illness Date Seen: 03/17/24 Chief complaint: vomiting, diarrhea Narrative: Nava Borrego is a 68 year old woman presents to our emergency department this evening after 3-4 hour history of vomiting and diarrhea. At baseline she has an unsteady gait related to ataxia status post stroke thought to be embolic from paroxysmal atrial fibrillation. (Now chronically anticoagulated with warfarin with an INR goal of 2-3.) She has difficulty caring for herself in the 1st place. [facility]ally [facility] after spending the past month there recovering from a proximal left spiral humerus fracture for which she underwent surgical repair at [facility] I believe on 02/13/2024. She has been unable to care for herself at home with the onset of the vomiting and diarrhea. Thus she presents to the emergency department. Denies blood loss of any sort. Abdominal cramping with this. Denies fevers, rigors, diaphoresis. When at the [facility], this past Friday, everyone was isolated in their rooms due to an outbreak of a diarrheal illness there. No other possible exposure at home with her . has been doing well. Unfortunately her cannot care for her though. She is in the process of getting home health care instituted to assist in the home. Review of Systems Status of ROS: Reports: 6 or more systems reviewed and unremarkable except as noted in History and below Narrative: With a great deal of effort she can care for herself at home. Since she returned from [facility] it has been taking much longer to take care of herself. Utilizes a cane or walker when ambulating for the most part except for she does hold onto furniture at times in the home to take a few steps. No falls. Tells me she took a dose of cephalexin today. She saw a physician for followup from a recent hospitalization. Physician prescribe cephalexin for possible lower extremity cellulitis bilaterally. Denies fevers, rigors, diaphoresis. Denies pain in lower extremities. No recent trauma or injury. Requests full resuscitation in the event of cardiopulmonary demise. Designates her daughter, Oscar, as individual to make healthcare decisions on her behalf should she suddenly not be able to make healthcare decisions on her own behalf. [facility] Medical History (Updated 03/17/24 @ 23:42 by Vaughn Lyles MD) Anemia ?D64.9 - Anemia, unspecified (ICD-10) Ataxia ?R27.0 - Ataxia, unspecified (ICD-10) Chronic anticoagulation ?Z79.01 - roasterman (current) use of anticoagulants (ICD-10) Poorly controlled diabetes mellitus ?E11.65 - Type 2 diabetes mellitus with hyperglycemia (ICD-10) Cognitive impairment ?R41.89 - Other symptoms and signs involving cognitive functions and awareness (ICD-10) Falls ?W19.XXXA - Unspecified fall, initial encounter (ICD-10) Sprain of foot, left ?S93.602A - Unspecified sprain of left foot, initial encounter (ICD-10) Injury of knee, right ?S89.91XA - Unspecified injury of right lower leg, initial encounter (ICD-10) Frailty ?R54 - Age-related physical debility (ICD-10) Osteoarthritis of right knee ?M17.11 - Unilateral primary osteoarthritis, right knee (ICD-10) Medication noncompliance due to cognitive impairment ?R41.9 - Unspecified symptoms and signs involving cognitive functions and awareness (ICD-10) ?Z91.148 - Patient's other noncompliance with medication regimen for other reason (ICD-10) Heart failure ?I50.9 - Heart failure, unspecified (ICD-10) History of DVT (deep vein thrombosis) ?Z86.718 - Personal history of other venous thrombosis and embolism (ICD-10) Endocarditis ?I38 - Endocarditis, valve unspecified (ICD-10) Hyperlipidemia ?E78.5 - Hyperlipidemia, unspecified (ICD-10) Hypertension ?I10 - Essential (primary) hypertension (ICD-10) Diabetic polyneuropathy ?E11.42 - Type 2 diabetes mellitus with diabetic polyneuropathy (ICD-10) Diabetes ?E11.9 - Type 2 diabetes mellitus without complications (ICD-10) Anticoagulated with warfarin ?Z79.01 - roasterman (current) use of anticoagulants (ICD-10) Pleural effusion on left ?J90 - Pleural effusion, not elsewhere classified (ICD-10) Multiple subsegmental pulmonary emboli without acute cor pulmonale ?I26.94 - Multiple subsegmental pulmonary emboli without acute cor pulmonale (ICD-10) History of Clostridioides difficile infection ?Z86.19 - Personal history of other infectious and parasitic diseases (ICD-10) Enteritis due to Clostridium difficile ?A04.72 - Enterocolitis due to Clostridium difficile, not specified as recurrent (ICD-10) Congestive heart failure ?I50.9 - Heart failure, unspecified (ICD-10) Cellulitis of right lower extremity ?L03.115 - Cellulitis of right lower limb (ICD-10) Acute kidney injury ?N17.9 - Acute kidney failure, unspecified (ICD-10) Surgical History 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) History of partial colectomy ?Z90.49 - Acquired absence of other specified parts of digestive tract (ICD-10) History of partial gastrectomy ?Z90.3 - Acquired absence of stomach [part of] (ICD-10) H/O splenectomy ?Z90.81 - Acquired absence of spleen (ICD-10) History of open heart surgery (05/17/21) ?Z98.890 - Other specified postprocedural states (ICD-10) History of appendectomy ?Z90.49 - Acquired absence of other specified parts of digestive tract (ICD-10) Family History Mother Colon cancer Diabetes Cirrhosis Brother Colon cancer Father Stroke High blood pressure Heart disease Social History Narrative: She lives at home with her daughter, Oscar, and her . She reports they live in a small home. She primarily walks around the house holding onto furniture. She has a cane that she occasionally uses, especially when she goes out. She lives on [address]. Her daughter sets up her medications but notes that she does not know if her mom is reliably taking her medications. Daughter specifically notes that her mom has probably been forgetting her insulin at times and her warfarin has been missed at least a couple times in the past week or so. What is your current living situation?: I presently have a place to live Problems where you live: no known problems Problems where you live details: constant remodeling of older home In the past 12 months, utilities in danger of being shut off: no In past 12 months, lack of transportation kept you from medical appts, meetings, work, or getting things needed for daily living: no In the past 12 mos, have been you worried that your food would run out before you had money to buy more?: never true In the past 12 mos, the food you bought just didn't last and you didn't have money to buy more?: never true Are you following a diet prescribed by a doctor: Yes (diabetic, heart healthy) Highest level of school completed/degree received: Associate degree: academic program Smoking Status: Former smoker Do you use any of these nicotine containing products: None Second hand tobacco smoke exposure: No How often do you have a drink containing alcohol: never How often do you have six or more drinks on one occasion: Never AUDIT-C Alcohol total score: 0 Non-prescribed substance use: denies use Caffeine: No How often does anyone, including family, friends and others, physically hurt you: never How often does anyone, including family, friends and others, insult or talk down to you: never How often does anyone, including family, friends and others, threaten you with harm: never How often does anyone, including family, friends and others, scream or curse at you: never Gender Identity: female service: Yes Meds Home Medications and Allergies Home Medications ?Medication ?Instructions ?Recorded ?Confirmed ?Type amlodipine 10 mg tablet 10 mg PO DAILY 01/24/22 02/12/24 History furosemide 40 mg tablet 40 mg PO DAILY 01/24/22 02/12/24 History warfarin 2 mg tablet 4 - 6 mg PO QPM 01/24/22 02/12/24 History aspirin 81 mg tablet,delayed 81 mg PO DAILY 02/25/22 02/12/24 History release (Adult Aspirin Regimen) atorvastatin 40 mg tablet 40 mg PO DAILY 02/25/22 02/12/24 History cholecalciferol (vitamin D3) 25 25 mcg PO DAILY 06/17/22 02/12/24 History mcg (1,000 unit) capsule coenzyme Q10 100 mg capsule 100 mg PO DAILY 06/17/22 02/12/24 History carvedilol 12.5 mg tablet 12.5 mg PO BID 02/12/24 02/12/24 History fluoxetine 10 mg capsule 10 mg PO DAILY 02/12/24 02/12/24 History insulin aspart U-100 100 unit/mL 12 - 14 unit subcut TIDWM 02/12/24 02/12/24 History (3 mL) subcutaneous pen (Novolog FlexPen U-100 Insulin aspart) insulin glargine 100 unit/mL (3 30 unit subcut HS 02/12/24 02/12/24 History mL) subcutaneous pen (Lantus Solostar U-100 Insulin) lisinopril 40 mg tablet 40 mg PO DAILY 02/12/24 02/12/24 History Allergies Allergy/AdvReac Type Severity Reaction Status Date / Time phytonadione (vitamin K1) Allergy Severe Anaphylaxis Verified 10/14/23 13:22 enoxaparin (From Lovenox) Allergy Diarrhea Verified 10/14/23 13:22 menaquinone-7 (vitamin K2) Allergy Anaphylaxis Verified 10/14/23 13:22 (vitamin K2) Exam Narrative: Exam Narrative: Examined patient in the emergency department. Appears comfortable lying on the exam bed. No acute distress. Holding emesis bag near her side. Alert and oriented x4. Articulate, cooperative. Tympanic membranes are normal. Midline nasal septum. Dentition fair repair. Dry buccal mucosa. Neck is supple. Midline trachea. No head neck lymphadenopathy. Lungs clear to auscultation. Heart tones with regular rhythm. Abdomen with active bowel sounds, soft. Obese. No rebound or guarding. Chronic trophic venous stasis changes bilateral lower extremities. Does not appear to have a cellulitis. No open wounds. Const: Vital Signs, click to edit/add: Vital Signs - 24 hr 03/17/24 21:17 03/17/24 23:19 03/17/24 23:20 Temperature 97.6 F 97.6 F Pulse Rate [Pulse Oximeter] 86 79 Respiratory Rate 18 18 Blood Pressure [Ri ght Upper Arm] 144/84 H 132/70 Pulse Oximetry 97 97 97 Oxygen Delivery Me thod Room Air Room Air Hospitalist - H&P: Result Labs Labs: Short CBC 03/17/24 Range/Units 21:35 WBC 13.61 H (4.50-11.00) K/uL Hgb 13.1 (12.0-16.0) gm/dL Hct 41.8 (33.0-51.0) % Plt Count 414 (140-440) K/uL BMP 03/17/24 21:35 Sodium 135 Potassium 4.0 Chloride 105 Carbon Dioxide 22 BUN 16 Creatinine 0.9 Glucose 359 H* Calcium 8.9 Assessment and Plan Assessment and plan (1) Gastroenteritis: Problem comment: - exposed to [facility] outbreak as recently as this past weekend - most likely viral. Worrisome for norovirus. Contact precautions - symptomatic treatment - C diff toxin negative Status: Acute (2) Physical debility: Problem comment: - acute on chronic, such that it is too dangerous for her to be able to go home at this time, and thus she is admitted for observation, treatment, monitoring - PT and OT to assess and assist Status: Acute (3) Gait instability: Problem comment: - baseline unstable gait with ataxia since stroke about 10 years ago - ordinarily uses walker or cane or furniture for stability, but now with new left humerus fracture ability to ambulate safely needs to be reassessed - PT and OT consultations ordered Status: Acute (4) Ataxia: Problem comment: - noted since previous CVA about 10 years ago, thought to be embolic from paroxysmal atrial fibrillation - ordinarily uses walker for safe ambulation, but unable to use walker since left humerus fracture 02/11/24 although can help with transfers and ambulation with assist of 1 Status: Acute (5) Hyperprothrombinemia: Problem comment: - pharmacy consultation and hold warfarin for now given INR 4.5 on 03/17/2024 Status: Acute (6) Chronic anticoagulation: Problem comment: - for history of embolic stroke due to atrial fibrillation Status: Acute (7) Anticoagulated with warfarin: Problem comment: - for underlying paroxysmal atrial fibrillation, INR goal of 2-3 - HOLDING Warfarin as of 03/17/2024 Status: Acute (8) Paroxysmal atrial fibrillation: Problem comment: - thought to be cause of previous embolic stroke - chronically anticoagulated with warfarin with INR goal of 2-3 - carvedilol for rate control Status: Acute (9) Insulin dependent diabetes mellitus: Problem comment: - A1C 9.3 on 02/12/24 - Accuchecks and SSI Status: Acute Plan 1. Reviewed impression with patient 2. Reviewed plans recommendations with patient 3. Answered patient's questions to her satisfaction 4. Stop the cephalexin which she was started on today and monitor legs. I doubt she had and certainly does not appear to have bilateral lower extremity cellulitis. 5. Scientific Aide will assist with discharge disposition planning including reestablishing home health care which was going to be started on 03/18/2024 6. Patient agreeable with above stated plans and recommendations Total Time Spent Total Time Spent: 70 minutes
[2024-03-17 23:39] VITALS: BP 132/70; PULSE 79; RESP 18; TEMP 36.4
[2024-03-18] VITALS (8 sets, daily range): BP systolic 104–138; BP diastolic 51–80; PULSE 68–79; RESP 18–20; TEMP 36.9–37.4; O2SAT 90–98
[2024-03-18] MEDS: 0.9 % SODIUM CHLORIDE 1000 ml 1,000 ML 125 ML IV (00:20)
[2024-03-18] MEDS: SODIUM CHLORIDE 0.9 % (FLUSH) 10 ML SYRINGE 5 ML IVF ×2 (00:20→21:27)
[2024-03-18 06:29] LABS: HCO3 VBG 26 mmol/L (21-28); Lactate* 1.4 mmol/L (0.5-1.9); PCO2 VBG 40 mmHG (40-50); pH VBG 7.415 (7.32-7.43)
[2024-03-18 06:31] LABS: Hematocrit 33.2 % (33.0-51.0); Hemoglobin* 10.3 gm/dL (12.0-16.0); Mean Corpuscular HGB Conc 31 gm/dL (32-36); Mean Corpuscular Hemoglobin 28 pg (26-34); Mean Corpuscular Volume 91 fL (80-100); Platelet Count* 356 K/uL (140-440); Red Blood Count 3.66 m/uL (4.00-5.20)
[2024-03-18 06:33] LABS: Slide Review Reflex No
[2024-03-18 06:54] LABS: Chloride* 107 mmol/L (96-114); Potassium* 3.9 mmol/L (3.6-5.1); Sodium* 136 mmol/L (135-149)
[2024-03-18 06:56] LABS: Creatinine* 0.9 mg/dL (0.5-1.5); Est. Creatinine Clearance* 49.12; Estimated Glomerular Filt Rate 70 ml/min
[2024-03-18 06:57] LABS: Anion Gap 5 mEq/L (7-15); Blood Urea Nitrogen* 19 mg/dL (7-30); Calcium* 7.8 mg/dL (8.4-10.6); Carbon Dioxide* 24 mmol/L (20-32); Glucose* 316 mg/dL (60-115); Phosphorus* 4.2 mg/dL (2.5-4.5)
[2024-03-18 06:58] LABS: Magnesium* 1.6 mg/dL (1.5-2.6)
[2024-03-18 07:13] LABS: INR 4.38 (0.91-1.10); Prothrombin Time 45.4 Seconds
--- NOTE | 2024-03-18 07:38 | PC.NURSE ---
End of shift note [id number]: Pt A&Ox4 and has been incontinent of bladder. IV NS running per order. Pt has been denying pain when asked, reports abdominal cramping due to diarrhea and vomiting yesterday. Pt has been afebrile and on RA throughout the shift. Pt tolerating clear liquid diet. Pt had no stools noted this shift, mucus observed in brief likely coming from rectum. Barrier cream applied to bilateral groin folds after cleansing and drying. Pt able to transfer with assist of 1 using FWW and gait belt. Bed alarm on, call light within reach.
[2024-03-18] MEDS: AMLODIPINE 10 MG TABLET PO (08:56)
[2024-03-18] MEDS: ASPIRIN 81 MG TABLET EC PO (08:57)
[2024-03-18] MEDS: FUROSEMIDE 40 MG TABLET PO (08:57)
[2024-03-18] MEDS: lisinopriL 20 MG TABLET 40 MG PO (08:57)
[2024-03-18] MEDS: ATORVASTATIN CALCIUM 40 MG TABLET PO (08:57)
[2024-03-18] MEDS: carvediloL 6.25 MG TABLET 12.5 MG PO ×2 (08:57→21:27)
[2024-03-18] MEDS: INSULIN ASPART 100 UNIT/ML 14 UNIT SUBCUT (09:06)
[2024-03-18] MEDS: FLUOXETINE HCL 10 MG CAPSULE PO (09:08)
--- NOTE | 2024-03-18 10:45 | PM.IMPN1 ---
Progress Note: A&P Assessment and plan (1) Gastroenteritis: Problem details: - exposed to residential outbreak as recently as this past weekend - most likely viral. Worrisome for norovirus. Contact precautions - symptomatic treatment, slowly advance diet - C diff toxin negative Status: Acute (2) Leukocytosis: Problem details: - WBC 18.9, no evidence of acute bacterial infection, likely 2/2 viral GE - follow closely for s/sx of bacterial infection (does not appear to have BLE cellulitis - more c/w PVD, was treated with Keflex when leaving TCU but this was d/c'd 03/17/24) Status: Acute (3) Hyperprothrombinemia: Problem details: - pharmacy consultation and hold warfarin for now given INR 4.5 on 03/17/2024 Status: Acute (4) Physical debility: Problem details: - acute on chronic, such that it is too dangerous for her to be able to go home at this time, and thus she is admitted for observation, treatment, monitoring - PT and OT to assess and assist Status: Acute (5) Anemia: Problem details: - chronic, normocytic, unclear etiology, receiving outpatient iron infusions with PCP - continue oral iron supplementation d/c - reassuring colonoscopy 01/[address] Ritter - baseline Hg 11, with Hg 10.3 on 03/18/24 Status: Acute (6) Paroxysmal atrial fibrillation: Problem details: - thought to be cause of previous embolic stroke - chronically anticoagulated with warfarin with INR goal of 2-3 - carvedilol for rate control Status: Acute (7) Insulin dependent diabetes mellitus: Problem details: - A1C 9.3 on 02/12/24, continue home insulin - Accuchecks and SSI Status: Acute Plan - per above - Warfarin and PPI for ppx - may require TCU level care again upon d/c, appreciate input from therapy and SW teams Subjective Date Seen: 03/18/24 Interval history: Nava was admitted to the hospital on 03/17/24 for weakness in the setting of nausea, vomiting, and diarrhea. Recently discharged home from a [facility] (sent there from [facility] after surgical repair of proximal L spiral humeral fracture), where there was an outbreak of GI illness. C-Diff negative in ER. Since admission, VS remain stable, Tmax 99.3. Diarrhea has improved. She has been tolerating water, not much more than that 2/2 nausea. WBC 18 this morning, Renal function and electrolytes stable. INR 4.3 without any evidence of acute bleeding. Patient has no new concerns for hospitalist team this morning. Exam Narrative: Exam Narrative: GEN: Alert and oriented, sitting comfortably in bedside chair HEENT: EOMIs bilaterally, no scleral icterus CV: RRR, + systolic murmur heard best at RSB R: LCTA bilaterally without concerning wheezing Ab: soft, nontender, hyperactive bowel sounds Ext: wwp, no concerning edema Skin: No concerning skin lesions or rashes on exposed skin Neuro: Nonfocal Psych: Appropriate Const: Vital Signs, click to edit/add: Vital Signs - 24 hr 03/17/24 21:17 03/17/24 23:17 03/17/24 23:17 Temperature 97.6 F 97.8 F Pulse Rate [Left P ulse Oximeter] Pulse Rate [Pulse Oximeter] 86 Respiratory Rate 18 16 18 Blood Pressure [Ri ght Arm] 151/68 H Blood Pressure [Ri ght Upper Arm] 144/84 H Pulse Oximetry 97 95 97 Oxygen Delivery Me thod Room Air Room Air Room Air 03/17/24 23:19 03/17/24 23:20 03/17/24 23:39 Temperature 97.6 F 97.6 F Pulse Rate [Left P ulse Oximeter] Pulse Rate [Pulse Oximeter] 79 79 Respiratory Rate 18 18 Blood Pressure [Ri ght Arm] Blood Pressure [Ri ght Upper Arm] 132/70 132/70 Pulse Oximetry 97 97 Oxygen Delivery Me thod Room Air 03/18/24 02:58 03/18/24 08:48 03/18/24 08:48 Temperature 99.3 F Pulse Rate [Left P ulse Oximeter] 76 76 Pulse Rate [Pulse Oximeter] Respiratory Rate 18 18 18 Blood Pressure [Ri ght Arm] 115/57 L Blood Pressure [Ri ght Upper Arm] Pulse Oximetry 93 93 Oxygen Delivery Me thod Room Air Room Air 03/18/24 08:48 Temperature Pulse Rate [Left P ulse Oximeter] 79 Pulse Rate [Pulse Oximeter] Respiratory Rate 18 Blood Pressure [Ri ght Arm] 138/76 Blood Pressure [Ri ght Upper Arm] Pulse Oximetry 93 Oxygen Delivery Me thod Room Air Labs Labs: Laboratory Results - last 24 hr 03/17/24 03/17/24 03/18/24 21:27 21:35 05:52 WBC 13.61 H 18.90 H RBC 4.69 3.66 L Hgb 13.1 10.3 L Hct 41.8 33.2 MCV 89 91 MCH 28 28 MCHC 31 L 31 L RDW Coeff of Aditi 14.9 Plt Count 414 356 Neut % (Auto) 91.9 H Lymph % (Auto) 4.7 L Cavalier % (Auto) 2.6 Eos % (Auto) 0.4 Baso % (Auto) 0.1 Neut # (Auto) 12.50 H Lymph # (Auto) 0.60 L Cavalier # (Auto) 0.40 Eos # (Auto) 0.10 Baso # (Auto) 0.00 Abs Immat Gran (auto) 0.00 Imm/Tot Granulo (auto) 0.3 INR 4.52 H 4.38 H VBG pH 7.415 VBG pCO2 40 VBG pO2 36.0 VBG HCO3 26 Sodium 135 136 Potassium 4.0 3.9 Chloride 105 107 Carbon Dioxide 22 24 Anion Gap 8 5 L BUN 16 19 Creatinine 0.9 0.9 Estimated Creat Clear 49.12 49.12 Estimated GFR 70 70 Glucose 359 H* 316 H Lactate 2.4 H 1.4 Calcium 8.9 7.8 L Phosphorus 4.2 Magnesium 1.7 1.6 C-Reactive Protein < 0.5 L Stl C. diff Tox B Gene Negative Stl C. diff [id number] PRESUMPTIVE NEGATIVE SARS-CoV-2 (PCR) Negative SARS-CoV-2 Influenza Type A (PCR) Negative PCR FLU A Influenza Type B (PCR) Negative PCR FLU B RSV (PCR) Negative PCR RSV
--- NOTE | 2024-03-18 14:17 | PC.SOCIAL ---
Addendum entered by MICHAEL Méndez 03/18/24 15:26: Discharge planning: Received the following responses form contacted facilities from referral for short term rehab: 1. [facility] - no beds until at least 03/29/24. 2. [facility] - no beds anticipated and unlikely to accept pt due to concerns about [employer] coverage as pt had finished her stay there at discharge home. [facility] in admitting confirmed they have COVID patients, but no Norovirus in their residents at this time. 3. [facility] - patient must be at least 72 hours in isolation at the hosptial prior to evaluation for admit to their facility. No beds until possibly 03/23/24. 4. [facility] - Patient must be at least 48 hours symptom free prior to evaluation for admit. 5. [facility] in [place] is not contracted with [employer]. 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 Addendum entered by MICHAEL Méndez 03/18/24 14:48: Discharge planning: At pt request, secure emailed referral to the following facilities for evaluation for admit for short term rehab: [facility], [facility], [facility], [facility], and [facility] in [place]. Awaiting decision on admit. Called [facility] and confirmed they are not contracted with [employer], so are not an option for pt who requested placement in a [employer] contracted facility. 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 Original Note: Discharge planning: Met with pt in room regarding d/c plan. Pt states she spent a few weeks at [facility] and was recently discharged home and had one Home health nurse visit and was scheduled to have PT and OT with [facility]. Pt states she would rather go straight home at discharge but that she is willing to go to a SNF if needed for short term. Pt states she thinks she got food poisoning at [facility], so is not sure she would want to go back there. Provided her with list of prison facilities contracted with [employer] and their department of health ratings. Pt requested social scientist look for availability at [facility], [facility], and [facility] from this list. She also requested social scientist confirm that [facility] and [facility] are not [employer] contracted as she would be interested in these if they are. 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
[2024-03-18] MEDS: NYSTATIN POWDER 1 APPLIC TOPICAL ×2 (14:58→21:26)
--- NOTE | 2024-03-18 19:02 | PC.NURSE ---
Nursing Care Hours: [id number] Pt this shift calm and cooperative, alert and oriented. SB assist with cane and gait belt. Pt had 3-4 loose stools, foul smelling. Denies abdominal pain and nausea. VSS. Pannus and abdominal fold slightly reddened. Under bilat breast very red and raw, tender to pt. Silver moisture wicking towels in place under bilat breast and abdomen. Nystatin ordered and applied as well. Bilat LE red and fluid filled blisters noted. No open areas noted, pain denied. Skin temp even throughout. Pt refused ensure clear d/t taste. Refused lunch. BRAT diet ordered for dinner, tolerating well at this time. Insulin given in the AM for high BS. Held the afternoon dose d/t refusing to eat and held PM dose d/t low BS.
[2024-03-18] MEDS: LOPERAMIDE HCL 2 MG CAPSULE PO (21:27)
[2024-03-18] MEDS: INSULIN GLARGINE,HUM.REC.ANLOG 100 UNIT/ML INSULN.PEN 30 UNIT SUBCUT (21:27)
[2024-03-19 04:04] VITALS: BP 130/67; PULSE 68; RESP 20; TEMP 37; O2SAT 93
--- NOTE | 2024-03-19 05:16 | PC.NURSE ---
[id number]: Patient pleasant and cooperative. Rates L. shoulder pain 2-4/10. Declines pain medications. Diarrhea improving per patient. 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 Nystatin powder applied to reddened areas under breasts and pannus. A1/walker. Appetite approving. Denies N/V/CP.
[2024-03-19] MEDS: OMEPRAZOLE 20 MG CAPSULE DR PO (06:15)
[2024-03-19 07:00] VITALS: O2SAT 96
[2024-03-19 07:01] LABS: Chloride* 108 mmol/L (96-114); Potassium* 3.4 mmol/L (3.6-5.1); Sodium* 139 mmol/L (135-149)
[2024-03-19 07:02] LABS: Basophils Percent Auto 0.4 % (0.0-3.0); Eosinophils Percent Auto 4.1 % (0.0-7.0); Hematocrit 33.6 % (33.0-51.0); Hemoglobin* 10.4 gm/dL (12.0-16.0); Immature Granulocytes Pct Auto 0.3 %; Lymphocytes Percent Auto 15.9 % (20-44); Mean Corpuscular HGB Conc 31 gm/dL (32-36); Mean Corpuscular Hemoglobin 28 pg (26-34); Mean Corpuscular Volume 90 fL (80-100); Monocytes Percent Auto 9.8 % (0.0-11.0); Neutrophils Percent Auto 69.5 % (42.0-72.0); Platelet Count* 319 K/uL (140-440); RDW Coefficient of Variation % 15.6 % (11.5-15.5); Red Blood Count 3.72 m/uL (4.00-5.20); White Blood Count* 11.39 K/uL (4.50-11.00)
[2024-03-19 07:04] LABS: Anion Gap 6 mEq/L (7-15); Blood Urea Nitrogen* 18 mg/dL (7-30); Carbon Dioxide* 25 mmol/L (20-32); Creatinine* 0.8 mg/dL (0.5-1.5); Est. Creatinine Clearance* 49.12; Estimated Glomerular Filt Rate 81 ml/min; Glucose* 106 mg/dL (60-115)
[2024-03-19 07:05] LABS: Calcium* 8.2 mg/dL (8.4-10.6); Slide Review Reflex No
[2024-03-19 07:08] LABS: INR 3.74 (0.91-1.10)
[2024-03-19 07:54] VITALS: BP 143/95; PULSE 80; RESP 18; TEMP 36.7; O2SAT 98
[2024-03-19] MEDS: carvediloL 6.25 MG TABLET 12.5 MG PO (08:24)
[2024-03-19] MEDS: ATORVASTATIN CALCIUM 40 MG TABLET PO (08:25)
[2024-03-19] MEDS: AMLODIPINE 10 MG TABLET PO (08:25)
[2024-03-19] MEDS: lisinopriL 20 MG TABLET 40 MG PO (08:25)
[2024-03-19] MEDS: ASPIRIN 81 MG TABLET EC PO (08:26)
[2024-03-19] MEDS: FUROSEMIDE 40 MG TABLET PO (08:26)
[2024-03-19] MEDS: FLUOXETINE HCL 10 MG CAPSULE PO (08:29)
--- NOTE | 2024-03-19 09:14 | PM.IMPN1 ---
Progress Note: A&P Assessment and plan (1) Gastroenteritis: Problem details: - exposed to [facility] outbreak as recently as this past weekend - most likely viral. Worrisome for norovirus. Contact precautions - symptomatic treatment, slowly advance diet - C diff toxin negative Status: Acute (2) Leukocytosis: Problem details: - WBC 18.9, no evidence of acute bacterial infection, likely 2/2 viral GE/demargination - follow closely for s/sx of bacterial infection (does not appear to have BLE cellulitis - more c/w PVD, was treated with Keflex when leaving TCU but this was d/c'd 03/17/24) - WBC improved to 11 on 03/19/24 Status: Acute (3) Hyperprothrombinemia: Problem details: - pharmacy consultation and hold warfarin for now given INR 4.5 on 03/17/2024 - 03/19/24: INR 3.74 Status: Acute (4) Physical debility: Problem details: - acute on chronic, such that it is too dangerous for her to be able to go home at this time, and thus she is admitted for observation, treatment, monitoring - PT and OT to assess and assist Status: Acute (5) Anemia: Problem details: - chronic, normocytic, unclear etiology, receiving outpatient iron infusions with PCP - continue oral iron supplementation d/c - reassuring colonoscopy 01/[address] 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 Recently discharged home from a [facility] ([facility] repair of proximal L spiral humeral fracture), where there was an outbreak of GI illness. C-Diff negative in ER. Since admission, VS remain stable, Tmax 99.3. Had diarrhea yesterday during PT, none yet today. No vomiting since admission, tolerating po intake. WBC 18 03/19, down to 11 today. Renal function and electrolytes stable (mild hypokalemia, replacing). INR 3.74 without any evidence of acute bleeding. Patient has no new concerns for hospitalist team this morning. Feels like her energy is improving; hoping to d/c home in the next 1-2 days. Exam Narrative: Exam Narrative: GEN: Alert HEENT: Normal external ears, EOMIs bilaterally, no scleral icterus CV: RRR, No concerning murmurs, rubs, or gallops R: LCTA bilaterally without concerning wheezing, rales, or rhonchi Ext: wwp, no concerning edema Skin: No concerning skin lesions or rashes on exposed skin Neuro: Nonfocal Psych: Appropriate Const: Vital Signs, click to edit/add: Vital Signs - 24 hr 03/18/24 11:00 03/18/24 14:53 03/18/24 15:00 Temperature Pulse Rate [Left P ulse Oximeter] 68 73 73 Respiratory Rate 18 18 18 Blood Pressure [Ri ght Arm] 117/51 L 104/63 Pulse Oximetry 97 98 Oxygen Delivery Me thod Room Air Room Air 03/18/24 15:00 03/18/24 20:19 03/18/24 22:03 Temperature 98.5 F Pulse Rate [Left P ulse Oximeter] 74 Respiratory Rate 18 20 20 Blood Pressure [Ri ght Arm] 133/80 Pulse Oximetry 98 96 96 Oxygen Delivery Ri thod Room Air Room Air Room Air 03/18/24 22:26 03/19/24 04:04 03/19/24 07:00 Temperature 99.1 F 98.6 F Pulse Rate [Left P ulse Oximeter] 72 68 Respiratory Rate 20 20 Blood Pressure [Ri ght Arm] 108/66 130/67 Pulse Oximetry 90 93 96 Oxygen Delivery Ri thod Room Air Room Air Room Air 03/19/24 07:54 Temperature 98.1 F Pulse Rate [Left P ulse Oximeter] 80 Respiratory Rate 18 Blood Pressure [Ri ght Arm] 143/95 H Pulse Oximetry 98 Oxygen Delivery Ri thod Room Air Labs Labs: Laboratory Results - last 24 hr 03/19/24 06:02 WBC 11.39 H RBC 3.72 L Hgb 10.4 L Hct 33.6 MCV 90 MCH 28 MCHC 31 L RDW Coeff of Aditi 15.6 H Plt Count 319 Neut % (Auto) 69.5 Lymph % (Auto) 15.9 L [place] % (Auto) 9.8 Eos % (Auto) 4.1 Baso % (Auto) 0.4 Neut # (Auto) 7.90 H Lymph # (Auto) 1.80 [place] # (Auto) 1.10 H Eos # (Auto) 0.50 Baso # (Auto) 0.00 Abs Immat Gran (auto) 0.00 Imm/Tot Granulo (auto) 0.3 INR 3.74 H Sodium 139 Potassium 3.4 L Chloride 108 Carbon Dioxide 25 Anion Gap 6 L BUN 18 Creatinine 0.8 Estimated Creat Clear 49.12 Estimated GFR 81 Glucose 106 Calcium 8.2 L
[2024-03-19] MEDS: POTASSIUM BICARB 25 MEQ EFFERVESCENT TAB PO (11:41)
[2024-03-19] MEDS: SODIUM CHLORIDE 0.9 % (FLUSH) 10 ML SYRINGE 5 ML IVF (11:42)
[2024-03-19] MEDS: NYSTATIN POWDER 1 APPLIC TOPICAL (11:42)
--- NOTE | 2024-03-19 12:33 | PM.DS1 ---
DS: Providers Provider Date Seen: 03/19/24 Date of admission: 03/17/24 23:01 Primary care physician: Hilda Cheema MD Admitting Clinician: Vaughn Lyles MD Consults: 03/18/24 00:01 Consult to Occupational Therapy [CONS] Routine Comment: Reason(s) for OT Consult:: Evaluate and Treat Any Restrictions?:: No Restrictions Consult to Physical Therapy [CONS] Routine Comment: Reason(s) for PT Consult:: Evaluate and Treat Any Restrictions?:: No Restrictions Consult to [facility] [CONS] Routine Comment: Reason for Consult:: Discharge Planning Needs Attending Physician on discharge: Dinora Hubbard MD Date of Discharge: 03/19/24 DS: Diagnosis Discharge Diagnosis (1) Gastroenteritis: Status: Acute Problem details: - exposed to long-term outbreak as recently as this past weekend - most likely viral. Worrisome for norovirus. 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 Ritter - baseline Hg 11, with Hg 10.3 on 03/18/24 (4) Physical debility: Status: Acute Problem details: - acute on chronic, seen by PT and OT, recommend home with (5) Hyperprothrombinemia: Status: Acute Problem details: - pharmacy consultation and hold warfarin for now given INR 4.5 on 03/17/2024 - 03/19/24: INR 3.74, hold coumadin and restart Friday, 2/3 (6) Leukocytosis: Status: Acute Problem details: - WBC 18.9, no evidence of acute bacterial infection, likely 2/2 viral GE/demargination - follow closely for s/sx of bacterial infection (does not appear to have BLE cellulitis - more c/w PVD, was treated with Keflex when leaving TCU but this was d/c'd 03/17/24) - WBC improved to 11 on 03/19/24 (7) Insulin dependent diabetes mellitus: Status: Acute Problem details: - A1C 9.3 on 02/12/24, continued home insulin during stay DS: Summary Hospital Course Hospital Course: Nava was admitted to the hospital on 03/17/24 for weakness in the setting of nausea, vomiting, and diarrhea. Recently discharged home from a [facility] ([facility] repair of proximal L spiral humeral fracture), where there was an outbreak of GI illness. C-Diff negative in ER. Since admission, VS remained stable, Tmax 99.3. Had diarrhea on day 1 during PT, which then resolved. No vomiting since admission, tolerating po intake. WBC 18 03/19, down to 11 on day of discharge. Renal function and electrolytes stable (mild hypokalemia, replaced). INR 3.74 without any evidence of acute bleeding. Seen by therapies, no need for TCU, home with HH recommended, and patient medically stable for d/c home on 03/19/24. Reviewed plan of care with daughter Oscar by phone, who agrees. Status at Discharge Functional status at discharge: uses cane/walker Overall status at discharge: patient is progressing back to baseline Time Spent with Patient Time attestation: Total time spent providing and/or coordinating discharge services: Time spent: Greater than 30 minutes Specific discharge activities: medication reconciliation, d/c discussion with pt and daughter, collaboration with PT/OT/SW Exam Narrative: Exam Narrative: GEN: Alert HEENT: Normal external ears, EOMIs bilaterally, no scleral icterus CV: RRR, + systolic murmur heard across precordium R: LCTA bilaterally without concerning wheezing, air movement adequate Ab: Soft nontender, tolerates palpation, no distension Ext: Dry skin of bilateral lower extremities with mild confluent erythema, consistent with PVD rather than acute infectious process Skin: No other concerning skin lesions or rashes on exposed skin Neuro: Baseline Psych: Appropriate, MCI noted (baseline) Const: Vital Signs, click to edit/add: Vital Signs - 24 hr 03/18/24 14:53 03/18/24 15:00 03/18/24 15:00 Temperature Pulse Rate [Left P ulse Oximeter] 73 73 Respiratory Rate 18 18 18 Blood Pressure [Ri ght Arm] 104/63 Pulse Oximetry 98 98 Oxygen Delivery Me thod Room Air Room Air 03/18/24 20:19 03/18/24 22:03 03/18/24 22:26 Temperature 98.5 F 99.1 F Pulse Rate [Left P ulse Oximeter] 74 72 Respiratory Rate 20 20 20 Blood Pressure [Ri ght Arm] 133/80 108/66 Pulse Oximetry 96 96 90 Oxygen Delivery Me thod Room Air Room Air Room Air 03/19/24 04:04 03/19/24 07:00 03/19/24 07:54 Temperature 98.6 F 98.1 F Pulse Rate [Left P ulse Oximeter] 68 80 Respiratory Rate 20 18 Blood Pressure [Ri ght Arm] 130/67 143/95 H Pulse Oximetry 93 96 98 Oxygen Delivery Me thod Room Air Room Air Room Air DS: Data Data Completed and Pending Labs on day of discharge: Labs from last 24 hours 03/19/24 06:02 WBC 11.39 H RBC 3.72 L Hgb 10.4 L Hct 33.6 MCV 90 MCH 28 MCHC 31 L RDW Coeff of Aditi 15.6 H Plt Count 319 Neut % (Auto) 69.5 Lymph % (Auto) 15.9 L [place] % (Auto) 9.8 Eos % (Auto) 4.1 Baso % (Auto) 0.4 Neut # (Auto) 7.90 H Lymph # (Auto) 1.80 [place] # (Auto) 1.10 H Eos # (Auto) 0.50 Baso # (Auto) 0.00 Abs Immat Gran (auto) 0.00 Imm/Tot Granulo (auto) 0.3 INR 3.74 H Sodium 139 Potassium 3.4 L Chloride 108 Carbon Dioxide 25 Anion Gap 6 L BUN 18 Creatinine 0.8 Estimated Creat Clear 49.12 Estimated GFR 81 Glucose 106 Calcium 8.2 L Preliminary micro results at discharge 03/17/24 21:35 Blood Culture - Preliminary Blood NO GROWTH AFTER 24 HOURS Discharge Plan Discharge Disposition: Home, Self-Care Date of Admission: 03/17/24 23:01 Attending Provider on Discharge: Dinora Hubbard Primary Care Provider: Hilda Cheema Condition: Stable Anticipated Discharge Date/Time: 03/19/24 12:22 Discharge Medications: Continued amlodipine 10 mg tablet 10 mg PO DAILY furosemide 40 mg tablet 40 mg PO DAILY coenzyme Q10 100 mg capsule 200 mg PO DAILY oxycodone 5 mg tablet 5 mg PO Q4H PRN (Reason: severe pain) lidocaine HCl [Aspercreme (lidocaine HCl)] 4 % cream 1 applic topical DAILY PRN sennosides-docusate sodium [Colace 2-In-1] 8.6-50 mg tablet 1 tab-cap PO BID polyethylene glycol 3350 [Miralax] 17 gram/dose powder 17 g PO DAILY PRN acetaminophen [Acetaminophen Pain Relief] 500 mg tablet 1,000 mg PO Q6H PRN aspirin [Adult Aspirin Regimen] 81 mg tablet,delayed release (DR/EC) 81 mg PO DAILY atorvastatin 40 mg tablet 40 mg PO DAILY carvedilol 12.5 mg tablet 12.5 mg PO BID fluoxetine 10 mg capsule 10 mg PO DAILY insulin glargine [Lantus Solostar U-100 Insulin] 100 unit/mL (3 mL) insulin pen 30 unit subcut HS lisinopril 40 mg tablet 40 mg PO DAILY insulin aspart U-100 [Novolog FlexPen U-100 Insulin] 100 unit/mL (3 mL) Insulin Pen 2 - 12 unit subcut TIDWM Held warfarin 2 mg tablet 4 mg PO QPM Hold Instructions: Resume on 03/21/24. restart Coumadin on Friday, recheck INR Friday, 2 at [facility] Discontinued cephalexin 500 mg capsule 500 mg PO 3XD Discharge Orders: Discharge Order (Routine); Ordered 03/19/24 Ordered By: Dinora Hubbard Additional Instructions: HOLD Warfarin until Friday. Repeat INR Friday at [facility]. [facility] to resume home care: PT, OT, RN. Activity Level: Activity as Tolerated Discharge Diet: Diabetic Follow Up Appointments: Hilda Cheema MD [Primary Care Provider] - (hospital d/c followup in 5-7 days) Forms: [facility] Info Instructions
--- NOTE | 2024-03-19 12:37 | PC.SOCIAL ---
Addendum entered by Gabbie Kim HEALTH CARE SOCIAL WORKER 03/19/24 13:42: Social work: Met with pt and spouse in room regarding d/c plan. Pt is pleased with plan for discharge home today as she did not want to return to a SNF for rehab. Provided pt with resource list with [employer], home delivered meals and home visitor care if needed. Pt was appreciative of visit and is looking forward to discharge home with [facility] resuming services at home. Faxed discharge orders and PT/OT notes to [facility] for resumption of home care at discharge. Informed them of discharge today. Original Note: Discharge planning: Left message with [facility] intake with information on discharge plan for today. Will fax discharge orders for resumption of in home caregiver, PT and OT to [facility] when completed.
--- NOTE | 2024-03-19 14:27 | PC.NURSE ---
shift note: dc'd IV intact. reviewed dc instructions with pt. Copies of dc instructions sent with pt at dc. Belongings reviewed and sent with pt at nd.
== END 2024-03-19 14:29 | disposition home or self-care (01) ==
LOC: ED 22:51 → MEDSURG 23:02
PROVIDERS: Family Medicine; Admitting Provider Internal Medicine; Emergency Provider Emergency Medicine; PCP Family Medicine; Visit Provider Internal Medicine
DX: K52.9 Noninfective gastroenteritis and colitis, unspecified (principal); R53.1 Weakness; I69.393 Ataxia following cerebral infarction; R29.6 Repeated falls; D72.829 Elevated white blood cell count, unspecified; R26.81 Unsteadiness on feet; L53.9 Erythematous condition, unspecified; R11.0 Nausea; D68.4 Acquired coagulation factor deficiency; D64.9 Anemia, unspecified; I48.0 Paroxysmal atrial fibrillation; Z79.01 Long term (current) use of anticoagulants; R41.89 Other symptoms and signs involving cognitive functions and awareness; D68.59 Other primary thrombophilia; E11.65 Type 2 diabetes mellitus with hyperglycemia; Z79.4 Long term (current) use of insulin; Z79.82 Long term (current) use of aspirin; Z87.891 Personal history of nicotine dependence; Z11.52 Encounter for screening for COVID-19
CPT/HCPCS: 36415; 51798; 80048; 82803; 82962; 83605; 83735; 84100; 85025; 85027; 85610; 86140; 87040; 87493; 87631; 94761; 96361; 96374; 97116; 97161; 97165; 97530; 97535; 99284; 99285; A9270; G0378; J1815; J2405; J7030

== ENCOUNTER 2024-03-19 18:36 | Outpatient (CLI) | payer OTHER, SELFPAY | END 2024-03-19 18:37 | disposition home or self-care (01) | LOC: AMB 03-30 05:32 | PROVIDERS: PCP Family Medicine; Visit Provider Emergency Medicine | DX: R53.1 Weakness (principal) | CPT/HCPCS: A0998 ==

== ENCOUNTER 2024-03-22 16:51 | Outpatient (CLI) | payer OTHER, SELFPAY | END 2024-03-22 16:52 | disposition home or self-care (01) | LOC: AMB 03-30 07:07 | PROVIDERS: PCP Family Medicine; Visit Provider Emergency Medicine Emergency Medical Services | DX: R53.1 Weakness (principal) | CPT/HCPCS: A0998 ==

== ENCOUNTER 2024-03-23 09:19 | Outpatient (CLI) | payer OTHER, SELFPAY | END 2024-03-23 09:20 | disposition home or self-care (01) | LOC: AMB 03-30 07:26 | PROVIDERS: PCP Family Medicine; Visit Provider Family Medicine | DX: R53.1 Weakness (principal) | CPT/HCPCS: A0998 ==

== ENCOUNTER 2024-04-13 09:48 | Outpatient (CLI) | payer OTHER, SELFPAY | END 2024-04-13 09:49 | disposition home or self-care (01) | LOC: AMB 04-14 11:09 | PROVIDERS: PCP Family Medicine; Visit Provider Emergency Medicine | DX: R53.1 Weakness (principal) | CPT/HCPCS: A0998 ==

== ENCOUNTER 2024-04-13 23:27 | Outpatient (CLI) | payer OTHER, SELFPAY | END 2024-04-13 23:28 | disposition home or self-care (01) | LOC: AMB 04-14 13:49 | PROVIDERS: PCP Family Medicine; Visit Provider Emergency Medicine Emergency Medical Services | DX: R53.1 Weakness (principal) | CPT/HCPCS: A0425; A0427 ==

== ENCOUNTER 2024-04-14 00:10 | Inpatient (IN) | payer OTHER, SELFPAY ==
[2024-04-14] VITALS (15 sets, daily range): BP systolic 131–195; BP diastolic 62–114; PULSE 68–94; RESP 16–20; TEMP 36.4–37.1; O2SAT 77–99; BMI 32.4; BMI 34.1
--- NOTE | 2024-04-14 | CRLHL7_ITS ---
For Patients: As a result of the Century Cures Act, medical imaging exams and procedure reports are released immediately into your electronic medical record. You may view this report before your referring provider. If you have questions, please contact your health care provider. INDICATION: Acute stroke. TECHNIQUE: CTA head with contrast bolus tracking, 3D angiographic rendering using maximum intensity projection (MIP) and images permanently archived. FINDINGS: There is scattered intracranial atherosclerotic disease with calcified plaque around both carotid siphons. There is no large vessel occlusion. No aneurysm is identified. IMPRESSION: No large vessel occlusion. Please note that all CT scans at this facility use dose modulation, iterative reconstruction, and/or weight-based dosing when appropriate to reduce radiation dose to as low as reasonably achievable. Dictated by Jake Torres MD @ 04/15/2024 7:30:55 AM (Electronically Signed)
--- OUTSIDE RECORDS SUMMARY | 2024-04-14 00:18 | XMS_ITS | Clinical Summary ---
Author Organization [employer] [facility] Address [address] [place] [id number] Care Team Providers Care Contract Driver Name Role Phone Melvi Maier Unavailable [phone] Roxanna Leon RN Unavailable [phone] Hilda Cheema MD Primary Care Provider [facility] [place] Unavailable [phone] [facility] [place] Unavailable Ariella Rowe Unavailable Allergies Active Allergy [...] Test 3 times/day. 1 Each 023 Active FLUoxetine (PROZAC) 10 mg capsuleIndication s:Depression, recurrent,Anxiety TAKE 1 CAPSULE EVERY MORNING 90 Capsule 1 Active Lantus Solostar U-100 Insulin 100 unit/mL (3 mL) penIndications:Ty pe 2 diabetes mellitus with diabetic polyneuropathy, without long-term current use of insulin (HC) Inject 30 units subcutaneous before bedtime. 60 mL 024 Active carvediloL (COREG) 12.5 mg tabletIndications :HTN (hypertension) Take 1 Tablet (12.5 mg) by mouth two times daily with meals. 180 Tablet 1 Active continuous glucose monitor SENSOR KIT (FreeStyle Mainor 2 Sensor)Indication s:Type 2 diabetes mellitus with diabetic polyneuropathy, with long-term current use of insulin (HC) To be used to read blood sugars per steward/stewardess second's directions. 6 Each 3 024 Active atorvastatin [...] area for max 12hr per 24hr period. 025 Active sennosides-docusa te (SENOKOT S) (8.6-50 mg) tabletIndications :Displaced spiral fracture of shaft of humerus, left arm, initial encounter for closed fracture Take 1 Tablet by mouth two times daily. 025 Active polyethylene glycoL (MIRALAX) 17 gram/scoop powder Mix 1 scoop (17 g) in liquid then take by mouth once daily if needed for Constipation. 025 Active oxyCODONE (ROXICODONE) 5 mg immediate release tabletIndications :Displaced spiral fracture of shaft of humerus, left arm, initial encounter for closed fracture Take 1 Tablet (5 mg) by mouth every 4 hours if needed for Pain (For severe pain). 26 Tablet 025 Active lisinopriL (PRINIVIL; ZESTRIL) 40 mg tabletIndications :HTN (hypertension) TAKE 1 TABLET DAILY 90 Tablet 025 Active blood sugar diagnostic (Contour Next Test Strips) stripIndications: Type 2 diabetes mellitus with diabetic polyneuropathy, without long-term current use of insulin (HC) test 4 times daily 100 Each 3 025 Active furosemide (LASIX) 40 mg tabletIndications :S/P AVR (aortic valve replacement) TAKE 1 TABLET EVERY MORNING 90 Tablet 025 Active insulin aspart, U-100, (NOVOLOG FLEXPEN) 100 unit/mL (3 mL) penIndications:Ty pe 2 diabetes mellitus with diabetic polyneuropathy, with long-term current use of insulin (HC) Inject 10 units subcutaneous three times daily before meals. 27 mL 3 025 Active warfarin (COUMADIN) 2 mg tabletIndications :Acute ischemic stroke (HC),Anticoagulat ion monitoring, INR range 2-3,Patent foramen ovale Take by mouth 04/06: 6 mg; Otherwise 4 mg every day in the evening OR as directed 025 Active amLODIPine (NORVASC) 10 mg tabletIndications :HTN (hypertension) Take 1 Tablet (10 mg) by mouth once daily. 90 Tablet 025 Active blood sugar diagnostic (Blood Glucose Test) stripIndications: Type 2 diabetes mellitus with diabetic polyneuropathy, without long-term current use of insulin (HC) Test 3 times per day. 100 Each 023 2024 Discontinued amLODIPine (NORVASC) 10 mg tabletIndications :HTN (hypertension) Take 1 Tablet (10 mg) by mouth once daily. 90 Tablet 3 024 2024 Discontinued(* Availability/F ormulary change/Cost of medication) lisinopriL (PRINIVIL; ZESTRIL) 40 mg tabletIndications :HTN (hypertension) Take 1 Tablet (40 mg) by mouth once daily. 90 Tablet 024 2024 Discontinued furosemide (LASIX) 40 mg tabletIndications :S/P AVR (aortic valve replacement) TAKE 1 TABLET EVERY MORNING 90 Tablet 024 2024 Discontinued insulin aspart, U-100, (NOVOLOG FLEXPEN) 100 unit/mL [...] or greater....12 units & call MD 025 2024 Discontinued(R eorder (E-cancel not sent)) warfarin (COUMADIN) 2 mg tabletIndications :Acute ischemic stroke (HC),Anticoagulat ion monitoring, INR range 2-3,Patent foramen ovale Take by mouth 03/10: Hold; Otherwise 4 mg every day in the evening OR as directed 025 2024 Discontinued(R eorder (E-cancel not sent)) cephalexin 500 mg capsuleIndication s:Cellulitis of left leg Take 1 Capsule (500 mg) by mouth three times daily for 10 days. 30 Capsule 025 2024 Discontinued(* Med complete/Regim en complete/Level of care change) warfarin (COUMADIN) 2 mg tabletIndications :Acute ischemic stroke (HC),Anticoagulat ion monitoring, INR range 2-3,Patent foramen ovale Take by mouth 4 mg (2 mg x 2) every day in the evening OR as directed 025 2024 Discontinued(O ther - add note to specify (E-cancel not sent)) Active Problems Problem Noted Date Diagnosed Date [...] replacement) 05/16/2021 Overview (05/16/2021): Aortic Valve - [employer]ILIA Aortic Valve - 21mm - [id number] - SN: [id number] - Implanted by MD Terell Cedillo on [...] and presbyopia 11/02/2018 04/12/2021 Pre-op examination 06/06/2017 8 Diabetic ulcer of lower leg 05/26/2017 [...] Encounters Date Type Department Care Team Description 04/06/2024 Telephone [facility] [address] [place] [address] Hilda Cheema MD Lab (Lab appt next week) 04/06/2024 Anticoagulation (warfarin) [facility] [address] [place] [address] 1, [facility]ticoagulation (Home Care) 04/05/2024 Refill [facility] [address] [place] [address] Hilda Cheema MD Refill Request (Amlodipine) 03/30/2024 Anticoagulation (warfarin) [facility] [address] [place] [address] 1, [facility] Anticoagulation (Home Care) 03/26/2024 Anticoagulation (warfarin) [facility] [address] [place] [address] 1, [facility] Anticoagulation 03/25/2024 11:45 AM HOME HEALTH CLINICIAN Office Visit [facility] [address] [place] [address] Hilda Cheema MD Hospital F/U (03/19/2024 gastroenteritis/Need s to have an RN go over her insulin dosing with her.) 03/25/2024 Telephone [facility] [address] [place] [address] Hilda Cheema MD ACC Order Request (Home Care Occupation therapy) 03/24/2024 11:05 AM HOME HEALTH CLINICIAN Ancillary Procedure [address] [place] [address] 03/24/2024 11:00 AM HOME HEALTH CLINICIAN Office Visit [address] [phone] Meliton Juarez MD Surgical Followup (S/P Left humerus intramedullary nailling DOS:02/17/2024 Dr. Meliton Juarez) 03/24/2024 Travel 03/23/2024 Anticoagulation (warfarin) [facility] [address] [place] [address] 1, [facility] Anticoagulation (chart update) 03/23/2024 Telephone [facility] [address] [place] [address] Hilda Cheema MD Error-please disregard 03/23/2024 Telephone [facility] [address] [place] [address] Hilda Cheema MD Medication Management (Warfarin) 03/22/2024 Refill [facility] [address] [place] [address] Hilda Cheema MD Refill Request (Furosemide) 03/21/2024 Refill [facility] [address] [address] [facility] [place] [address] Hilda Cheema MD Refill Request (Contour Next Test Strips) 03/17/2024 11:45 AM HOME HEALTH CLINICIAN Office Visit [facility] [address] [place] [address] Hilda Cheema MD Hospital F/U (Hospital DOD 02/12/24 TCU DOD 03/12/24 Displaced spiral fracture of shaft of humerus, left arm,) 03/17/2024 Anticoagulation (warfarin) [facility] [address] [place] [address] 1, [facility] Anticoagulation (Chart update.) 03/17/2024 Telephone [facility] [address] [place] [address] Hilda Cheema MD Anticoagulation (BPA - CEPHALEXIN 500 MG CAPSULE) 03/17/2024 Travel 03/16/2024 Telephone [facility] [address] [place] [address] Hilda Cheema MD Outside Order (Verbal Orders /Nurse Visits and Home Health Aid ) 03/16/[address] [address] Hilda Cheema MD Refill Request (Lisinopril) 03/15/2024 Patient Outreach [facility] Management - Care Management Navigation/[facility] Motorpaneer [address] [place] [phone] Ariella Rowe COTA TCU Transition 03/15/2024 Telephone [facility] [address] [place] [address] Hilda Cheema MD TCU Orders (VERBAL ORDERS) 03/12/2024 Patient Outreach [facility] [address] [place] [address] Heather Franklin, [facility] F/U; Primary Care RN SNF/TCU Follow Up ([facility] Catrachita Mehta TCU 03/12/24) 03/11/2024 9:30 AM [facility] Fdc [address] [address] Sarahy Griffin NP Transitional Care Visit (TCU Discharge Summary) 03/11/2024 Telephone [facility] [place] [id number] [place] [phone] Meliton Juarez MD 03/10/2024 Anticoagulation (warfarin) [address] [address] Clinic, Asct Tcu Inr Anticoagulation (TCU) 03/09/2024 8:00 AM [facility] [address] [address] Sarahy Griffin NP Transitional Care Visit (Follow up) 03/09/2024 Telephone [facility] [address] [phone] Meliton Juarez MD Appointment (First Post-Op) 03/05/2024 Anticoagulation (warfarin) [address] [address] Clinic, Asct Tcu Inr Anticoagulation (TCU) 03/03/2024 9:00 AM [facility] [address] [address] Georgina Jane MD Transitional Care Visit (Follow up) 03/03/2024 Orders Only [address] [address] Georgina Jane MD <No scans attached> 03/03/2024 Nurse Triage [address] [address] Eleni Anderson PHARMACY PICKING TECH Concerns 03/01/2024 8:30 AM [facility] [address] [address] Eleni Anderson NP Transitional Care Visit (Follow up) 03/01/2024 Anticoagulation (warfarin) [address] [address] Clinic, Asct Tcu Inr Anticoagulation (TCU) 02/26/[address] [phone] Hilda Cheema MD Anticoagulation (Annual re-enrollment- Warfarin) 02/26/2024 Anticoagulation (warfarin) [address] [address] Clinic, Asct Tcu Inr Anticoagulation (TCU) 02/25/2024 9:45 AM [facility] [address] [address] Georgina Jane MD Transitional Care Visit (Initial) 02/24/2024 8:00 AM [facility] [address] [address] Sarahy Griffin NP Transitional Care Visit (Admit) 02/24/2024 Nurse Triage [address] [address] Sarahy Griffin NP Anticoagulation (Requesting orders) 02/24/2024 Anticoagulation (warfarin) [address] [address] Clinic, Asct Tcu Inr Anticoagulation (TCU) 02/24/[address] [address] Sarahy Griffin NP Anticoagulation (INR Orders) 02/24/2024 Patient Outreach [facility] Care Management - Care Management Navigation/[facility] Motorp[employer]er [address] [place] [address] Ariella Rowe COTA TCU Transition 02/24/2024 Telephone [facility] [address] [place] [address] Hilda Cheema MD Anticoagulation (Clarification needed) 02/17/2024 3:35 PM HOME HEALTH CLINICIAN Anesthesia Event [facility] [address] [place] [address] Cecilio Ray CRNA Gharib, Erin Elizabeth, MD 02/17/2024 1:55 PM HOME HEALTH CLINICIAN - 02/17/2024 6:07 PM HOME HEALTH CLINICIAN Surgery [facility] [address] [place] [address] Meliton Juarez MD LEFT HUMERUS INTERMEDULLARY NAILING 02/16/2024 Travel 02/12/2024 8:35 PM HOME HEALTH CLINICIAN - 02/23/2024 2:00 PM HOME HEALTH CLINICIAN Hospital Encounter [facility] [address] [place] [address] [facility], MD Mike Washington, MD [...] 2-3; Paroxysmal atrial fibrillation (HC) Discharge Disposition: Custodial Facility 02/12/2024 Orders Only [facility] Scanner 1 scan: (1-Ord) [facility], XR HUMERUS LT, 02/12/2024 02/12/2024 Orders Only [facility] Scanner 1 scan: (1-Ord) [facility], XR LT HUMERUS , 02/12/2024 02/11/2024 Orders Only [facility] Scanner 1 scan: (1-Ord) [facility], XR HUMERUS LT, 02/11/2024 02/11/2024 Refill [facility] [address] [place] [address] Hilda Cheema MD Refill Request (Atorvastatin) 02/03/2024 3:00 PM HOME HEALTH CLINICIAN Orders Only [facility] [address] [place] [address] Lab, [facility] 02/03/2024 Anticoagulation (warfarin) [facility] [address] [place] [address] 1, [facility] Anticoagulation 02/03/2024 Travel 01/26/2024 Refill [facility] [address] [place] [address] Hilda Cheema MD Refill Request (Warfarin) 01/15/2024 Telephone [facility] [address] [facility] [address] Hilda Cheema MD Anticoagulation (INR OVERDUE REMINDER #2 ) 01/13/2024 Telephone [facility] [address] [place] [address] Hilda Cheema MD Refill Request ([employer] Mainor 3 sensors) from Last 3 Months Immunizations Name Administration Dates Next Due AMB Influenza, IIV4 PF (=>6 mos Flulaval,Fluzone Fluarix)(Flu Clinic Only) 01/28/2014 COVID-19 vaccine (Moderna 100mcg/0.5mL) PF, MDV 04/12/2020,03/15/2020 COVID-19 vaccine (Pfizer-Bio NTech 30mcg/0.3mL) 12YO+ BIVALENT PF, MDV 01/03/2022 HIB PRP-OMP (PedvaxHIB) 03/27/2021(Defer red: - per pharmacy, we do not carry this vaccine. unable to administer) HepA-HepB (Twinrix) 03/25/2014,08/16/2013,2013 Influenza, IIV3 (Age >=3 years) 03/29/2013,12/07,12/10/2006 Influenza, IIV4 11/27/2020,,11/16/2018,12/10,12/10/2016,11/15/2015,11/10/2014 ,01/28/2014 Influenza, Inactivated AIIV4 (Age 65+ Years) [...] Father (Age 56) OF A CVA OR [place] Mother HAS UNKNOWN KARLY OLOGY LIVER DISEASE, [...] Date Recorded PHQ-2 TOTAL SCORE 1 07/04/2023 [facility] - Occupational Stress [...] on file Legal Sex Female 6:57 AM HOME HEALTH CLINICIAN Gender Identity Not on file Sexual Orientation [...] Sign Reading Time Taken Comments Blood Pressure 163/81 03/25/2024 11:53 AM HOME HEALTH CLINICIAN Pulse 73 03/25/2024 11:53 AM HOME HEALTH CLINICIAN Temperature 36.8 C (98.2 F) 02/22/2024 11:57 PM HOME HEALTH CLINICIAN Respiratory Rate 16 02/23/2024 10:0 5 AM HOME HEALTH CLINICIAN Oxygen Saturation 98% 03/25/2024 11: 53 AM HOME HEALTH CLINICIAN Inhaled Oxygen Concentration - - Weight 104.6 kg (230 lb 9.6 oz) 02/22/2024 6:52 AM HOME HEALTH CLINICIAN Height 165.1 cm (5' 5) 07/04/2023 1:58 PM CDT Body Mass Index 38.37 07/04/2023 1:58 PM CDT Plan of Treatment Upcoming Encounters Date Type Department Care Team (Late st Contact Info) Description 05/05/2024 10:15 AM CDT Office Visit [facility] [place] [address] [phone] Meliton Juarez MD [address] [address] Health Maintenance Due Date Last Done Comments [...] 3, 03/27/2021 Medical Devices Implanted Type Area Commissioned Sales Associate Device Identifier Shelf Expiration Date Model / Serial / Lot Valve Aortic 21mm [employer] Resilia Tissue - [id number] Implanted:Qty: 1 on 05/16/2021 by Agustin Cedillo MD at [facility] N/A: Aortic Valve [employer] 11/29/2024 [id number] / [id number] / Description:No rinse per man ufacture's instructions. Humeral Nail 8/7mm X 24cm Implanted:Qty: 1 on 02/17/2024 by Meliton Juarez MD at [facility] Left: Humerus [id number] / / Description:HUMERAL NAIL 8/7 MM X 24CM Screw Bone 5x34mm Trigen Cnclls Slf Tppng - [id number] Implanted:Qty: 1 on 02/17/2024 by Meliton Juarez MD at [facility] Left: Humerus [employer] 03/22/2033 [id number] / / [id number] Screw Bone 5x38mm Trigen Cnclls Slf Tppng - [id number] Implanted:Qty: 1 on 02/17/2024 by Meliton Juarez MD at [facility] Left: Humerus [employer] 04/19/2033 [id number] / / [id number] Screw 5.0 X 28 Self Tap Implanted:Qty: 1 on 02/17/2024 by Meliton Juarez MD at [facility] Left: Humerus 09/05/2033 [id number] / / [id number] Description:SCREW 5.0 X 28 S ELF TAP Screw Bone 4x20mm Trigen Jayesh Slf Tppng - [id number] Implanted:Qty: 1 on 02/17/2024 by Meliton Juarez MD at [facility] Left: Humerus [employer] 08/29/2033 [id number] / / [id number] Screw Bone 4x22mm Trigen Jayesh Slf Tppng - [id number] Implanted:Qty: 1 on 02/17/2024 by Meliton Juarez MD at [facility] Left: Humerus [employer] 08/30/2033 [id number] / / [id number] Procedures Procedure Name Priority Date/Time Associated Diagnosis Comments HEMOGLOBIN A1C MONITORING (POCT) Routine 03/25/2024 12:27 PM HOME HEALTH CLINICIAN Type 2 diabetes mellitus with diabetic polyneuropathy, with long-term current use of insulin (HC) PROTIME-INR Routine 03/25/2024 12:26 PM HOME HEALTH CLINICIAN H/O: Cardioembolic ischemic stroke Anticoagulation monitoring, INR range 2-3 Patent foramen ovale XR HUMERUS MIN 2 VIEWS LEFT Routine 03/24/2024 11:03 AM HOME HEALTH CLINICIAN S/P Left humerus intramedullary nailling DOS:02/17/2024 Dr. Meliton Juarez INR,POCT Routine 03/05/2024 GLUCOSE METER Timed 02/23/2024 11:08 AM HOME HEALTH CLINICIAN MAGNESIUM Early AM 02/23/2024 7:42 AM HOME HEALTH CLINICIAN BASIC METABOLIC PANEL Early AM 02/23/2024 7:42 AM HOME HEALTH CLINICIAN PROTIME-INR Early AM 02/23/2024 7:42 AM HOME HEALTH CLINICIAN GLUCOSE METER Timed 02/23/2024 7:16 AM HOME HEALTH CLINICIAN GLUCOSE METER Timed 02/22/2024 9:42 PM HOME HEALTH CLINICIAN GLUCOSE METER Timed 02/22/2024 4:49 PM HOME HEALTH CLINICIAN GLUCOSE METER Timed 02/22/2024 11:49 AM HOME HEALTH CLINICIAN APTT Today 02/22/2024 10:26 AM HOME HEALTH CLINICIAN HEMOGLOBIN Early AM 02/22/2024 10:26 AM HOME HEALTH CLINICIAN ELECTROLYTE PANEL Early AM 02/22/2024 10:26 AM HOME HEALTH CLINICIAN PROTIME-INR Early AM 02/22/2024 10:26 AM HOME HEALTH CLINICIAN GLUCOSE METER Timed 02/22/2024 6:46 AM HOME HEALTH CLINICIAN GLUCOSE METER Timed 02/21/2024 9:31 PM HOME HEALTH CLINICIAN GLUCOSE METER Timed 02/21/2024 4:58 PM HOME HEALTH CLINICIAN GLUCOSE METER Timed 02/21/2024 1:26 PM HOME HEALTH CLINICIAN APTT Timed 02/21/2024 7:28 AM HOME HEALTH CLINICIAN PROTIME-INR Early AM 02/21/2024 7:28 AM HOME HEALTH CLINICIAN HEMATOCRIT Early AM 02/21/2024 7:28 AM HOME HEALTH CLINICIAN HEMOGLOBIN Early AM 02/21/2024 7:28 AM HOME HEALTH CLINICIAN PLATELET COUNT Early AM 02/21/2024 7:28 AM HOME HEALTH CLINICIAN GLUCOSE METER Timed 02/21/2024 7:16 AM HOME HEALTH CLINICIAN GLUCOSE METER Timed 02/20/2024 10:28 PM HOME HEALTH CLINICIAN APTT Timed 02/20/2024 9:35 PM HOME HEALTH CLINICIAN GLUCOSE METER Timed 02/20/2024 4:57 PM HOME HEALTH CLINICIAN APTT ETIENNE 02/20/2024 12:24 PM HOME HEALTH CLINICIAN APTT Timed 02/20/2024 12:24 PM HOME HEALTH CLINICIAN BASIC METABOLIC PANEL Early AM 02/20/2024 12:24 PM HOME HEALTH CLINICIAN PROTIME-INR Early AM 02/20/2024 12:24 PM HOME HEALTH CLINICIAN HEMATOCRIT Early AM 02/20/2024 12:24 PM HOME HEALTH CLINICIAN HEMOGLOBIN Early AM 02/20/2024 12:24 PM HOME HEALTH CLINICIAN PLATELET COUNT Early AM 02/20/2024 12:24 PM HOME HEALTH CLINICIAN GLUCOSE METER Timed 02/20/2024 11:38 AM HOME HEALTH CLINICIAN GLUCOSE METER Timed 02/20/2024 6:34 AM HOME HEALTH CLINICIAN APTT Timed 02/20/2024 12:30 AM HOME HEALTH CLINICIAN GLUCOSE METER Timed 02/19/2024 9:22 PM HOME HEALTH CLINICIAN GLUCOSE METER Timed 02/19/2024 5:24 PM HOME HEALTH CLINICIAN GLUCOSE METER Timed 02/19/2024 1:40 PM HOME HEALTH CLINICIAN BASIC METABOLIC PANEL Timed 02/19/2024 10:45 AM HOME HEALTH CLINICIAN PROTIME-INR Early AM 02/19/2024 10:45 AM HOME HEALTH CLINICIAN HEMATOCRIT Early AM 02/19/2024 10:45 AM HOME HEALTH CLINICIAN HEMOGLOBIN Early AM 02/19/2024 10:45 AM HOME HEALTH CLINICIAN PLATELET COUNT Early AM 02/19/2024 10:45 AM HOME HEALTH CLINICIAN GLUCOSE METER Timed 02/19/2024 8:24 AM HOME HEALTH CLINICIAN XR HUMERUS MIN 2 VIEWS LEFT Routine 02/19/2024 8:19 AM HOME HEALTH CLINICIAN GLUCOSE METER Timed 02/19/2024 6:46 AM HOME HEALTH CLINICIAN APTT Today 02/18/2024 9:28 PM HOME HEALTH CLINICIAN GLUCOSE METER Timed 02/18/2024 9:08 PM HOME HEALTH CLINICIAN GLUCOSE METER Timed 02/18/2024 5:08 PM HOME HEALTH CLINICIAN HEMATOCRIT Early AM 02/18/2024 4:31 PM HOME HEALTH CLINICIAN HEMOGLOBIN Early AM 02/18/2024 4:31 PM HOME HEALTH CLINICIAN PLATELET COUNT Early AM 02/18/2024 4:31 PM HOME HEALTH CLINICIAN GLUCOSE METER Timed 02/18/2024 11:36 AM HOME HEALTH CLINICIAN GLUCOSE METER Timed 02/18/2024 6:42 AM HOME HEALTH CLINICIAN GLUCOSE METER Timed 02/17/2024 10:32 PM HOME HEALTH CLINICIAN GLUCOSE METER Timed 02/17/2024 7:02 PM HOME HEALTH CLINICIAN XR HUMERUS MIN 2 VIEWS LEFT PORTABLE Routine 02/17/2024 6:09 PM HOME HEALTH CLINICIAN XR C-ARM EQUAL OR GREATER 2 HR Routine 02/17/2024 6:07 PM HOME HEALTH CLINICIAN ENDOTRACHEAL TUBE Routine 02/17/2024 4:1 5 PM HOME HEALTH CLINICIAN ENDOTRACHEAL TUBE Routine 02/17/2024 4:1 5 PM HOME HEALTH CLINICIAN TYPE & SCREEN STAT 02/17/2024 3:22 PM HOME HEALTH CLINICIAN OPEN REDUCTION INTERNAL FIXATION HUMERUS Class D Urgent 02/17/2024 3:17 PM HOME HEALTH CLINICIAN Left humeral shaft fracture Case Notes Supine On [facility] HUMERAL NAIL SET/LOANER GLUCOSE METER Timed 02/17/2024 2:04 PM HOME HEALTH CLINICIAN GLUCOSE METER Timed 02/17/2024 11:39 AM HOME HEALTH CLINICIAN ECHO TTE COMPLETE W CONTRAST Routine 02/17/2024 9:37 AM HOME HEALTH CLINICIAN HEMATOCRIT Early AM 02/17/2024 6:20 AM HOME HEALTH CLINICIAN HEMOGLOBIN Early AM 02/17/2024 6:20 AM HOME HEALTH CLINICIAN PLATELET COUNT Early AM 02/17/2024 6:20 AM HOME HEALTH CLINICIAN GLUCOSE METER Timed 02/17/2024 6:01 AM HOME HEALTH CLINICIAN APTT Today 02/16/2024 11:43 PM HOME HEALTH CLINICIAN GLUCOSE METER Timed 02/16/2024 9:39 PM HOME HEALTH CLINICIAN APTT Today 02/16/2024 4:56 PM HOME HEALTH CLINICIAN GLUCOSE METER Timed 02/16/2024 4:25 PM HOME HEALTH CLINICIAN GLUCOSE METER Timed 02/16/2024 11:43 AM HOME HEALTH CLINICIAN XR CHEST 1 VIEW PORTABLE ETIENNE 02/16/2024 8:10 AM HOME HEALTH CLINICIAN GLUCOSE METER Timed 02/16/2024 6:54 AM HOME HEALTH CLINICIAN PRO-BNP ETIENNE 02/16/2024 5:48 AM HOME HEALTH CLINICIAN APTT Early AM 02/16/2024 5:48 AM HOME HEALTH CLINICIAN CBC W PLT NO DIFF Early AM 02/16/2024 5:4 8 AM HOME HEALTH CLINICIAN PROTIME-INR Early AM 02/16/2024 5:48 AM HOME HEALTH CLINICIAN SODIUM Early AM 02/16/2024 5:48 AM HOME HEALTH CLINICIAN MAGNESIUM Early AM 02/16/2024 5:48 AM HOME HEALTH CLINICIAN POTASSIUM Early AM 02/16/2024 5:48 AM HOME HEALTH CLINICIAN CREATININE Early AM 02/16/2024 5:48 AM HOME HEALTH CLINICIAN GLUCOSE METER Timed 02/15/2024 9:41 PM HOME HEALTH CLINICIAN APTT Timed 02/15/2024 6:11 PM HOME HEALTH CLINICIAN GLUCOSE METER Timed 02/15/2024 5:22 PM HOME HEALTH CLINICIAN GLUCOSE METER Timed 02/15/2024 11:33 AM HOME HEALTH CLINICIAN APTT Timed 02/15/2024 10:45 AM HOME HEALTH CLINICIAN GLUCOSE METER Timed 02/15/2024 7:35 AM HOME HEALTH CLINICIAN GLUCOSE METER Timed 02/15/2024 6:29 AM HOME HEALTH CLINICIAN PROTIME-INR Early AM 02/15/2024 6:27 AM HOME HEALTH CLINICIAN CREATININE Early AM 02/15/2024 6:27 AM HOME HEALTH CLINICIAN CBC W PLT NO DIFF Early AM 02/15/2024 6:2 7 AM HOME HEALTH CLINICIAN APTT Timed 02/15/2024 1:14 AM HOME HEALTH CLINICIAN GLUCOSE METER Timed 02/14/2024 9:36 PM HOME HEALTH CLINICIAN APTT Timed 02/14/2024 6:34 PM HOME HEALTH CLINICIAN GLUCOSE METER Timed 02/14/2024 5:17 PM HOME HEALTH CLINICIAN GLUCOSE METER Timed 02/14/2024 11:54 AM HOME HEALTH CLINICIAN CREATININE ETIENNE 02/14/2024 10:52 AM HOME HEALTH CLINICIAN BUN ETIENNE 02/14/2024 10:52 AM HOME HEALTH CLINICIAN HEMATOCRIT ETIENNE 02/14/2024 10:52 AM HOME HEALTH CLINICIAN HEMOGLOBIN ETIENNE 02/14/2024 10:52 AM HOME HEALTH CLINICIAN PLATELET COUNT ETIENNE 02/14/2024 10:52 AM HOME HEALTH CLINICIAN APTT ETIENNE 02/14/2024 10:52 AM HOME HEALTH CLINICIAN PROTIME-INR ETIENNE 02/14/2024 10:52 AM HOME HEALTH CLINICIAN GLUCOSE METER Timed 02/14/2024 6:50 AM HOME HEALTH CLINICIAN PROTIME-INR Early AM 02/14/2024 4:43 AM HOME HEALTH CLINICIAN CBC W PLT NO DIFF Early AM 02/14/2024 4:4 3 AM HOME HEALTH CLINICIAN CREATININE Early AM 02/14/2024 4:43 AM HOME HEALTH CLINICIAN GLUCOSE METER Timed 02/13/2024 10:12 PM HOME HEALTH CLINICIAN GLUCOSE METER Timed 02/13/2024 4:47 PM HOME HEALTH CLINICIAN GLUCOSE METER Timed 02/13/2024 1:04 PM HOME HEALTH CLINICIAN SCAN CORRESP-EKG RESULTS 02/13/2024 10:56 AM HOME HEALTH CLINICIAN SCAN CORRESP-LABORATORY RESULTS 02/13/2024 10:56 AM HOME HEALTH CLINICIAN SCAN CORRESP-LABORATORY RESULTS 02/13/2024 10:56 AM HOME HEALTH CLINICIAN SCAN CORRESP-IMAGING 02/13/2024 10:56 AM HOME HEALTH CLINICIAN GLUCOSE METER Timed 02/13/2024 8:52 AM HOME HEALTH CLINICIAN PROTIME-INR Early AM 02/13/2024 7:12 AM HOME HEALTH CLINICIAN CBC W PLT NO DIFF Early AM 02/13/2024 7:1 2 AM HOME HEALTH CLINICIAN SODIUM Early AM 02/13/2024 7:12 AM HOME HEALTH CLINICIAN POTASSIUM Early AM 02/13/2024 7:12 AM HOME HEALTH CLINICIAN CREATININE Early AM 02/13/2024 7:12 AM HOME HEALTH CLINICIAN GLUCOSE METER Timed 02/12/2024 9:51 PM HOME HEALTH CLINICIAN TYPE & SCREEN Today 02/12/2024 9:34 PM HOME HEALTH CLINICIAN CREATININE Today 02/12/2024 9:34 PM HOME HEALTH CLINICIAN POTASSIUM Today 02/12/2024 9:34 PM HOME HEALTH CLINICIAN PROTIME-INR ETIENNE 02/12/2024 9:34 PM HOME HEALTH CLINICIAN HEMOGLOBIN ETIENNE 02/12/2024 9:34 PM HOME HEALTH CLINICIAN SCAN-RADIOLOGY REPORT 02/12/2024 12:00 AM HOME HEALTH CLINICIAN SCAN-RADIOLOGY REPORT 02/12/2024 12:00 AM HOME HEALTH CLINICIAN SCAN-RADIOLOGY REPORT 02/11/2024 12:00 AM HOME HEALTH CLINICIAN INR,POCT Routine 02/03/2024 2:55 PM HOME HEALTH CLINICIAN H/O: Cardioembolic ischemic stroke Anticoagulation monitoring, INR [...] for screening mammogram COLONOSCOPY 02/03/2020 11:11 AM HOME HEALTH CLINICIAN ANTI HCV Routine 11/16/2018 3:04 PM CDT Need for hepatitis C screening test from Last 3 Months or Most Recently Relevant to Health Maintenance Results * (ABNORMAL) POCT Hemoglobin A1C Monitoring (03/25/2024 12:27 PM HOME HEALTH CLINICIAN) POC HEMOGLOBIN A1C 9.0(H) <6.0 % OF TOTAL HGB [facility] Comment: Any point of care results exhibiting inconsistency with the patient's clinical status should be repeated using a different testing method. Blood BLOOD SPECIMEN / Unknown 03/25/2024 12:27 PM HOME HEALTH CLINICIAN 03/25/2024 12:27 PM HOME HEALTH CLINICIAN Hilda Cheema MD CHEMISTRY Final R esult Performing Organization Address [facility] Co de Phone Number [facility] [address] [place] [address], [place] [phone] [facility] [address] [place] [address] * (ABNORMAL) PROTIME-INR [[id number]] - Standing Order (03/25/2024 12:26 PM HOME HEALTH CLINICIAN) Only the most recent of12 resultswithin the time period is included. INR 1.4(H) <1.3 03/25/2024 10:17 PM HOME HEALTH CLINICIAN [facility] PROTIME 16.4(H) 10.6 - 12.4 sec 03/25/2024 10:17 PM HOME HEALTH CLINICIAN [facility] Blood BLOOD SPECIMEN / Unknown [facility] / Unknown 03/25/2024 12:26 PM HOME HEALTH CLINICIAN 03/25/2024 12:26 PM HOME HEALTH CLINICIAN Narrative [facility] - 03/25/2024 10:17 PM HOME HEALTH CLINICIAN Therapeutic Range 2.0-3.0 for most anticoagulated patients [...] seconds if the patient is on UFH. Hilda Cheema MD HEMATOLOGY Final R esult Performing Organization Address [facility]/ZIP Co de Phone Number [facility] [address] [place] [address], [place] * XR HUMERUS MIN 2 VIEWS LEFT (03/24/2024 11:03 AM HOME HEALTH CLINICIAN) Only the most recent of2 resultswithin the time period is included. Anatomical Region Laterality Modality HUMERI, HUMERUS L Computed Radio graphy Impressions 03/24/2024 3:17 PM HOME HEALTH CLINICIAN As noted in findings above. Reading services were personally performed by Meliton Juarez MD, documentation performed by Karen Gregg, LAT, ATC based on my observation of services performed and provider statements to me. Meliton Juarez MD 03/24/2024 Narrative 03/24/2024 3:17 PM HOME HEALTH CLINICIAN For Patients: As a result of the Cures Act, medical imaging exams and procedure reports are released immediately into your electronic medical record. You may view this report before your referring provider. If you have questions, please contact your health care provider. This radiology exam was performed at the [facility] in [place] and interpreted by Meliton Juarez MD. HISTORY: A 68 y.o. year-old female with left humerus pain with history of trauma. TECHNICAL: 2 views of the left humerus were obtained consisting of a AP and lateral. FINDINGS: Evidence of a humeral shaft status post intramedullary nail fixation. Te alignment of the fracture is in varus, but is stable from prior imaging. There is early bony callous formation at the fracture site. Meliton Juarez MD GENERAL IMAGING Final Result * (ABNORMAL) INR,POCT (03/05/2024) Only the most recent of2 resultswithin the time period is included. INR 2.6(EXTERNA L) 0.0 - 1.2 U [facility] Blood BLOOD SPECIMEN / Unknown [facility] Final Resu lt U [facility] [address] [place] [address] * (ABNORMAL) GLUCOSE METER (02/23/2024 11:08 AM HOME HEALTH CLINICIAN) Only the most recent of46 resultswithin the time period is included. GLUCOSE METER 212(H) 65 - 100 mg/dL 02/23/2024 11:16 AM HOME HEALTH CLINICIAN [facility] Blood BLOOD SPECIMEN / Unknown 02/23/2024 11:08 AM HOME HEALTH CLINICIAN 02/23/2024 11:16 AM HOME HEALTH CLINICIAN Valeria Martinez MD CHEMISTRY Final Resu lt Performing Organization Address [facility]/ZIP Co de Phone Number [facility] [address] [place] [address], [place] * Magnesium AM (02/23/2024 7:42 AM HOME HEALTH CLINICIAN) Only the most recent of2 resultswithin the time period is included. MAGNESIUM 1.7 1.6 - 2.4 mg/dL 02/23/2024 9:10 AM HOME HEALTH CLINICIAN [facility] Blood BLOOD SPECIMEN / Unknown Venipuncture / Unknown 02/23/2024 7:42 AM HOME HEALTH CLINICIAN 02/23/2024 8:22 AM HOME HEALTH CLINICIAN Valeria Martinez MD CHEMISTRY Final Resu Performing Organization Address [facility] de Phone Number [facility] [address] [address], [place] * (ABNORMAL) Basic metabolic panel AM (02/23/2024 7:42 AM HOME HEALTH CLINICIAN) Only the most recent of3 resultswithin the time period is included. SODIUM 139 136 - 145 mmol/L 02/23/2024 9:29 AM [facility] POTASSIUM 4.8 3.5 - 5.1 mmol/L 02/23/2024 9:29 AM [facility] CHLORIDE 100 98 - 107 mmol/L 02/23/2024 9:29 AM [facility] CO2,TOTAL 27 22 - 29 mmol/L 02/23/2024 9:29 AM [facility] ANION GAP 12 5 - 18 02/23/2024 9:29 AM [facility] GLUCOSE 140(H) 70 - 99 mg/dL 02/23/2024 9:29 AM [facility] CALCIUM 8.8 8.8 - 10.4 mg/dL 02/23/2024 9:29 AM [facility] Comment: Reference ranges for this test were updated on 12/23/2023 to reflect our healthy population more accurately. Reference range changes are not retroactively applied to results, but previous results using the same methodology can be interpreted in the context of the new reference range. BUN 19 8 - 23 mg/dL 02/23/2024 9:29 AM [facility] CREATININE 0.82 0.50 - 0.90 mg/dL 02/23/2024 9:29 AM [facility] BUN/CREAT RATIO 23(H) 10 - 20 9:29 AM [facility] eGFR 79(L) >90 mL/min/1. 73m2 02/23/2024 9:29 AM [facility] Comment:As of 2021, eG FR is calculated by the CKD-EPI creatinine equation without race adjustment. eGFR can be influenced by muscle mass, exercise, and diet. The reported eGFR is an estimation only and is only applicable if the renal function is stable. Blood BLOOD SPECIMEN / Unknown Venipuncture / Unknown 02/23/2024 7:42 AM HOME HEALTH CLINICIAN 02/23/2024 8:22 AM HOME HEALTH CLINICIAN us Valeria Martinez MD CHEMISTRY Final Resu lt [facility] [address] [place] [address], * (ABNORMAL) Hemoglobin AM (02/22/2024 10:26 AM HOME HEALTH CLINICIAN) Only the most recent of8 resultswithin the time period is included. HEMOGLOBIN 9.9(L) 12.0 - 16.0 g/dL 02/22/2024 10:55 AM [facility] MCV 90 80 - 100 fL 02/22/2024 10:55 AM [facility] Blood BLOOD SPECIMEN / Unknown Venipuncture / Unknown 02/22/2024 10:26 AM HOME HEALTH CLINICIAN 02/22/2024 10:46 AM HOME HEALTH CLINICIAN us Valeria Maritnez MD HEMATOLOGY Final Resu lt Performing Organization Address City/[facility]/ZIP Co de Phone Number [facility] [address] [place] [address], * APTT (02/22/2024 10:26 AM HOME HEALTH CLINICIAN) Only the most recent of15 resultswithin the time period is included. APTT 34 25 - 36 sec 02/22/2024 11:06 AM HOME HEALTH CLINICIAN [facility] Blood BLOOD SPECIMEN / Unknown Venipuncture / Unknown 02/22/2024 10:26 AM HOME HEALTH CLINICIAN 02/22/2024 10:46 AM HOME HEALTH CLINICIAN Narrative [facility] - 02/22/2024 11:06 AM HOME HEALTH CLINICIAN Therapeutic Range: 59-89 seconds Valeria Martinez MD HEMATOLOGY Final Resu lt Performing Organization Address [facility] Co de Phone Number [facility] [address] [place] [address], * Electrolyte panel AM (02/22/2024 10:26 AM HOME HEALTH CLINICIAN) SODIUM 137 136 - 145 mmol/L 02/22/2024 11:11 AM HOME HEALTH CLINICIAN [facility] POTASSIUM 3.8 3.5 - 5.1 mmol/L 02/22/2024 11:11 AM HOME HEALTH CLINICIAN [facility] CHLORIDE 103 98 - 107 mmol/L 02/22/2024 11:11 AM HOME HEALTH CLINICIAN [facility] CO2,TOTAL 26 22 - 29 mmol/L 02/22/2024 11:11 AM HOME HEALTH CLINICIAN [facility] ANION GAP 8 5 - 18 02/22/2024 11:11 AM HOME HEALTH CLINICIAN [facility] Blood BLOOD SPECIMEN / Unknown Venipuncture / Unknown 02/22/2024 10:26 AM HOME HEALTH CLINICIAN 02/22/2024 10:45 AM HOME HEALTH CLINICIAN Valeria Martinez MD CHEMISTRY Final Resu lt Performing Organization Address City/[facility]/ZIP Co de Phone Number [facility] [address] [address], [place] * (ABNORMAL) PLATELET COUNT (02/21/2024 7:28 AM HOME HEALTH CLINICIAN) Only the most recent of6 resultswithin the time period is included. PLATELET COUNT 284 140 - 440 thou/cu mm 02/21/2024 7:46 AM HOME HEALTH CLINICIAN [facility] MPV 12.7(H) 6.5 - 11.0 fL 02/21/2024 7:46 AM HOME HEALTH CLINICIAN [facility] Blood BLOOD SPECIMEN / Unknown Venipuncture / Unknown 02/21/2024 7:28 AM HOME HEALTH CLINICIAN 02/21/2024 7:40 AM HOME HEALTH CLINICIAN Narrative [facility] - 02/21/2024 7:46 AM HOME HEALTH CLINICIAN Every morning while on IV heparin. Every morning while on IV heparin. Necessary every morning while on IV heparin. us Thomas Mckeon MD HEMATOLOGY Final Resu lt Performing Organization Address [facility] Co de Phone Number [facility] [address] [address], [place] * (ABNORMAL) HEMATOCRIT (02/21/2024 7:28 AM HOME HEALTH CLINICIAN) Only the most recent of6 resultswithin the time period is included. HEMATOCRIT 29.3(L) 33.0 - 51.0 % 02/21/2024 7:46 AM HOME HEALTH CLINICIAN [facility] Blood BLOOD SPECIMEN / Unknown Venipuncture / Unknown 02/21/2024 7:28 AM HOME HEALTH CLINICIAN 02/21/2024 7:40 AM HOME HEALTH CLINICIAN Narrative [facility] - 02/21/2024 7:46 AM HOME HEALTH CLINICIAN Every morning while on IV heparin. Every morning while on IV heparin. Necessary every morning while on IV heparin. us Thomas Mckeon MD HEMATOLOGY Final Resu lt Performing Organization Address City/[facility]/ZIP Co de Phone Number [facility] [address] [address], [place] * XR HUMERUS MIN 2 VIEWS LEFT PORTABLE (02/17/2024 6:09 PM HOME HEALTH CLINICIAN) Anatomical Region Laterality Modality HUMERI, HUMERUS L Digital Radiog erin Narrative 02/17/2024 6:06 PM HOME HEALTH CLINICIAN No radiology involvement necessary. See chart for further information. Meliton Juarez MD GENERAL IMAGING Final Result * XR C-ARM EQUAL OR GREATER 2 HR (02/17/2024 6:07 PM HOME HEALTH CLINICIAN) Anatomical Region Laterality Modality Other Narrative 02/17/2024 6:06 PM HOME HEALTH CLINICIAN 5 minutes 54 seconds fluoroscopy time was provided. See operative/procedure report for further information. Meliton Juarez MD FLUOROSCOPY Final Result * HCHG TUBE PR1, HCHG STYLET PR1 (02/17/2024 4:15 PM HOME HEALTH CLINICIAN) Narrative Cecilio Ray CRNA - 02/17/2024 4:15 PM HOME HEALTH CLINICIAN Cecilio Ray CRNA 02/17/2024 4:16 PM Procedure: [...] difficult) Leann Bentley MD ANESTHESIA PX NOTE ORDE RABLES Final Result * TYPE & SCREEN (02/17/2024 3:22 PM HOME HEALTH CLINICIAN) Only the most recent of2 resultswithin the time period is included. ABORH A Rh Positive 02/17/2024 4:29 PM HOME HEALTH CLINICIAN [facility] LAB BLOOD BANK ANTIBODY SCREEN Negative Negative 02/17/2024 4:29 PM [facility] HEALTH CLINICIAN [facility] SPECIMEN EXPIRATION DATE/TIME 02/20/24 23:59 02/17/2024 4:29 PM HOME HEALTH CLINICIAN [facility] LAB BLOOD BANK Blood BLOOD SPECIMEN / Unknown Butterfly / Unknown 02/17/2024 3:22 PM HOME HEALTH CLINICIAN 02/17/2024 3:37 PM HOME HEALTH CLINICIAN Leann Bentley MD BLOOD BANK Final R esult [facility] BLOOD BANK [address] [place] [address], * ECHO TTE COMPLETE W CONTRAST (02/17/2024 9:37 AM HOME HEALTH CLINICIAN) AORTIC VALVE MEAN PG 15 mmHg EJECTION FRACTION 64 % PEAK TR VELOCITY 2.9 m/s LVEDD 4.8 cm Anatomical Region Laterality Modality Ultrasound 02/17/2024 8:08 AM HOME HEALTH CLINICIAN Narrative 02/17/2024 9:46 AM HOME HEALTH CLINICIAN ECHOCARDIOGRAM NAVA CHACON : 1955 68 years Study Date: 02/17/2024 8:08:48 AM Gender: F BP: 182/80 mmHg Height: 165.00 cm BSA: 2.28 m Weight: 127.00 kg Tech: YOLANDA Referring MD: GODFREY YIP Site: [facility] Reading Location: [facility] Patient Location: Inpatient. Procedure: 2D w/ Contrast, [...] documentation: 2 ml diluted Definity, lot #[id number], [facility]# [id number] was administered peripherally to enhance visualization of all left ventricular segments. . This study was interpreted by an [facility] accredited facility. Final Procedure Note García Peralta MD - 02/17/2024 ECHOCARDIOGRAM NAVA CHACON : 1955 68 years Study Date: 02/17/2024 8:08:48 AM Gender: F BP: 182/80 mmHg Height: 165.00 cm BSA: 2.28 m Weight: 127.00 kg Tech: YOLANDA Referring MD: GODFREY YIP Site: [facility] Reading Location: [facility] Patient Location: Inpatient. Procedure: 2D w/ Contrast, [...] documentation: 2 ml diluted Definity, lot #[id number], [facility]#[id number] was administered peripherally to enhance visualization of allleft ventricular segments. . This study was interpreted by an [facility] accredited facility. Final Godfrey Yip MD ECHO ORD Final Result * XR CHEST 1 VIEW PORTABLE (02/16/2024 8:10 AM HOME HEALTH CLINICIAN) Anatomical Region Laterality Modality HEART, THORAX, CHEST Digital Rad iography 02/16/2024 8:26 AM HOME HEALTH CLINICIAN Impressions 02/16/2024 8:26 AM HOME HEALTH CLINICIAN CHF with pulmonary interstitial edema and possible alveolar edema in the right base Dictated by Julio Romero MD @ 02/16/2024 8:26:14 AM (Electronically Signed) Narrative 02/16/2024 8:26 AM HOME HEALTH CLINICIAN For Patients: As a result of the [...] result of the Century Cures Act, medical imagingexams and procedure reports [...] CBC no diff AM (02/16/2024 5:48 AM HOME HEALTH CLINICIAN) Only the most recent of4 resultswithin the time period is included. WHITE BLOOD COUNT 11.3(H) 4.5 - 11.0 thou/cu mm 02/16/2024 6:25 AM HOME HEALTH CLINICIAN [facility] RED BLOOD COUNT 3.70(L) 4.00 - 5.20 mil/cu mm 02/16/2024 6:25 AM HOME HEALTH CLINICIAN [facility] HEMOGLOBIN 10.6(L) 12.0 - 16.0 g/dL 02/16/2024 6:25 AM HOME HEALTH CLINICIAN [facility] HEMATOCRIT 32.7(L) 33.0 - 51.0 % 02/16/2024 6:25 AM HOME HEALTH CLINICIAN [facility] MCV 88 80 - 100 fL 02/16/2024 6:25 AM HOME HEALTH CLINICIAN [facility] MCH 28.6 26.0 - 34.0 pg 02/16/2024 6:25 AM HOME HEALTH CLINICIAN [facility] MCHC 32.4 32.0 - 36.0 g/dL 02/16/2024 6:25 AM [facility] RDW 14.5 11.5 - 15.5 % 02/16/2024 6:25 AM HOME HEALTH CLINICIAN [facility] PLATELET COUNT 313 140 - 440 thou/cu mm 02/16/2024 6:25 AM HOME HEALTH CLINICIAN [facility] MPV 13.4(H) 6.5 - 11.0 fL 02/16/2024 6:25 AM HOME HEALTH CLINICIAN [facility] NRBC 0.0 % 02/16/2024 6:25 AM HOME HEALTH CLINICIAN [facility] ABS NRBC 0.0 thou /cu mm 02/16/2024 6:25 AM HOME HEALTH CLINICIAN [facility] TRA [facility] Blood BLOOD SPECIMEN / Unknown Venipuncture / Unknown 02/16/2024 5:48 AM HOME HEALTH CLINICIAN 02/16/2024 6:08 AM HOME HEALTH CLINICIAN us Thomas Mckeon MD HEMATOLOGY Final Resu lt Performing Organization Address [facility] Co de Phone Number [facility] [address] [place] [address], [place] * Sodium AM (02/16/2024 5:48 AM HOME HEALTH CLINICIAN) Only the most recent of2 resultswithin the time period is included. SODIUM 136 136 - 145 mmol/L 02/16/2024 6:42 AM HOME HEALTH CLINICIAN [facility] Blood BLOOD SPECIMEN / Unknown Venipuncture / Unknown 02/16/2024 5:48 AM HOME HEALTH CLINICIAN 02/16/2024 6:08 AM HOME HEALTH CLINICIAN us Thomas Mckeon MD CHEMISTRY Final Resu lt Performing Organization Address City/[facility]/ZIP Co de Phone Number [facility] [address] [place] [address], [place] * Potassium AM (02/16/2024 5:48 AM HOME HEALTH CLINICIAN) Only the most recent of3 resultswithin the time period is included. POTASSIUM 4.7 3.5 - 5.1 mmol/L 02/16/2024 6:42 AM HOME HEALTH CLINICIAN [facility] Blood BLOOD SPECIMEN / Unknown Venipuncture / Unknown 02/16/2024 5:48 AM HOME HEALTH CLINICIAN 02/16/2024 6:08 AM HOME HEALTH CLINICIAN us Thomas Mckeon MD CHEMISTRY Final Resu Performing Organization Address [facility] Co de Phone Number [facility] [address] [address], [place] * (ABNORMAL) Creatinine AM (02/16/2024 5:48 AM HOME HEALTH CLINICIAN) Only the most recent of6 resultswithin the time period is included. eGFR 85(L) >90 mL/min/1.7 3m2 02/16/2024 6:42 AM HOME HEALTH CLINICIAN [facility] Comment:As of 2021, eG FR is calculated by the CKD-EPI creatinine equation without race adjustment. eGFR can be influenced by muscle mass, exercise, and diet. The reported eGFR is an estimation only and is only applicable if the renal function is stable. CREATININE 0.77 0.50 - 0.90 mg/dL 02/16/2024 6:42 AM HOME HEALTH CLINICIAN [facility] Blood BLOOD SPECIMEN / Unknown Venipuncture / Unknown 02/16/2024 5:48 AM HOME HEALTH CLINICIAN 02/16/2024 6:08 AM HOME HEALTH CLINICIAN us Thomas Mckeon MD CHEMISTRY Final Resu Performing Organization Address [facility] de Phone Number [facility] [address] [address], [place] * (ABNORMAL) PRO-BNP (02/16/2024 5:48 AM HOME HEALTH CLINICIAN) PRO-BNP 1,259(H) <125 pg/mL 02/16/2024 9:40 AM HOME HEALTH CLINICIAN [facility] Blood BLOOD SPECIMEN / Unknown Venipuncture / Unknown 02/16/2024 5:48 AM HOME HEALTH CLINICIAN 02/16/2024 6:08 AM HOME HEALTH CLINICIAN Narrative [facility] - 02/16/2024 9:40 AM HOME HEALTH CLINICIAN The following cut-points have been suggested for [...] SEND OUTS Final Result Performing Organization Address [facility] Co de Phone Number [facility] [address] [address], [place] * BUN (02/14/2024 10:52 AM HOME HEALTH CLINICIAN) BUN 20 8 - 23 mg/dL 02/14/2024 11:30 AM HOME HEALTH CLINICIAN [facility] Blood BLOOD SPECIMEN / Unknown Butterfly / Unknown 02/14/2024 10:52 AM HOME HEALTH CLINICIAN 02/14/2024 10:59 AM HOME HEALTH CLINICIAN us Thomas Mckeon MD CHEMISTRY Final Resu lt Performing Organization Address [facility] de Phone Number [facility] [address] [address], [place] * SCAN CORRESP-LABORATORY RESULTS (02/13/2024 10:56 AM HOME HEALTH CLINICIAN) Only the most recent of2 resultswithin the time period is included. Narrative 02/13/2024 10:56 AM HOME HEALTH CLINICIAN Ordered by an unspecified provider. us Other Clinical Staff OTHER Final Resul t * SCAN CORRESP-EKG RESULTS (02/13/2024 10:56 AM HOME HEALTH CLINICIAN) Narrative 02/13/2024 10:56 AM HOME HEALTH CLINICIAN Ordered by an unspecified provider. us Other Clinical Staff OTHER Final Resul t * SCAN CORRESP-IMAGING (02/13/2024 10:56 AM HOME HEALTH CLINICIAN) Anatomical Region Laterality Modality Other Narrative 02/13/2024 10:56 AM HOME HEALTH CLINICIAN Ordered by an unspecified provider. us Other Clinical Staff OTHER Final Resul t * SCAN-RADIOLOGY REPORT (02/12/2024 12:00 AM HOME HEALTH CLINICIAN) Only the most recent of3 resultswithin the time period is included. Anatomical Region Laterality Modality Other us Scanner OTHER Final Result * LIPID PANEL W REFLEX MEASURED LDL (11/11/2022 3:04 PM CDT) CHOLESTEROL,TOTAL 194 100 - 199 mg/dL 11/11/2022 11:58 PM CDT [facility] [employer] [facility] Comment: Cholesterol, Total Reference Ranges Desirable <200 mg/dL Borderline 200-239 mg/dL High >=240 mg/dL TRIGLYCERIDES 137 <150 mg/dL 11/11/2022 11:58 PM CDT [facility] [employer] LABORATORY-[facility] TRAL LABORATORY HDL CHOLESTEROL 52 >40 mg/dL 11:58 PM CDT [facility] TR[facility] LAB[facility] NON-HDL CHOLESTEROL 142 <145 mg/dl 11/11/2022 11:58 PM CDT [facility] CHOL/HDL RATIO 3.73 <4.50 11/11/2022 11:58 PM CDT [facility] LDL CHOLESTEROL 115 <=130 mg/dL 11/11/2022 11:58 PM CDT [facility] VLDL CHOLESTEROL 27 <=30 mg/dL 11/11/2022 11:58 PM CDT [facility] PROVIDER ORDERED STATUS RANDOM 11/11/2022 11:58 PM CDT [facility] Blood BLOOD SPECIMEN / Unknown Venipuncture / Unknown 11/11/2022 3:04 PM CDT 11/11/2022 3:06 PM CDT us Hilda Cheema MD CHEMISTRY Final R esult [facility] [facility] [address] [place] [place] [address], * (ABNORMAL) XR DXA BONE DENSITY 2 SITES AXIAL [14242.1] (05/01/2022 1:35 PM CDT) Anatomical Region Laterality [...] Repeat scan recommended in 3-5 years. Ashley Landry PA-C [facility] 05/07/2022 Narrative 05/07/2022 12:55 PM CDT For Patients: Results are automatically released to your [facility]) account once available, in compliance with federal regulations. This means that you may see your results before your provider has had a chance to review them. Please allow 2-3 business days for your provider to comment on the results. XR DXA Bone Mineral Density (BMD) EXAM LOCATION: [address] [address] PATIENT NAME: Nava Chacon DATE OF : [...] two scanners are made by the same steward/stewardess second. PROCEDURE: Dual-energy x-ray absorptiometry performed with routine [...] 8.3%. 10-year probability of hip fracture: 0.8%. Hilda Cheema MD DEXA Final R esult [...] care provider. XR MAMMO DELFINA BILAT SCREEN [803125] CLINICAL HISTORY: This is an asymptomatic 66 [...] R esult * COLONOSCOPY (02/03/2020 11:11 AM HOME HEALTH CLINICIAN) 02/03/2020 11:1 1 AM HOME HEALTH CLINICIAN Narrative Transcriptions Ruben Ritter MD - 02/03/2020 [...] adequate candidate for conscious sedation. The [id number] was passed through the anus and advanced [...] reponse to care. [facility] and nursing notes for moderate sedation details. Total physician intraservice time was 22 minutes. Ruben Ritter MD 02/03/2020 12:00:28 PM This report has been signed electronically. Note Initiated On: 02/03/2020 11:11 AM Procedure Code(s): --- Professional --- 09529, Colonoscopy, flexible; with biopsy, single or multiple Diagnosis Code(s): --- Professional --- Z86.010, Personal history of colonicpolyps CPT copyright 2019 [employer]. All rights reserved. The codes documented in this report are preliminary and upon ep technologist reviewmay be revised to meet current compliance requirements. Scope In: 11:37:54 AM Scope Withdrawal Time 0 hours 8 minutes 13 seconds Scope Out: 11:56:43 AM us Ruben Ritter MD PROCEDURE ORD Final Res ult * ANTI HCV (11/16/2018 3:04 PM CDT) HEPATITIS C ANTIBODY Non-React иван Non-React иван 11/17/2018 2:58 AM CDT [facility] Comment:Antibodies to HCV no t detected; does not exclude the possibility of exposure to HCV. Blood BLOOD SPECIMEN / Unknown Venipuncture / Unknown 11/16/2018 3:04 PM CDT 11/16/2018 3:04 PM CDT us Roxanna Mcclure MD SEND OUTS Final R esult [facility] [employer] [facility] [address] [place] [address], from Last 3 Months or Most Recently Relevant to Health Maintenance Insurance Magnetic MEDICARE PART A HB ONLY MEDICARE PART B HB ONLY [employer] CHOICE PPO MR MEDICARE PPS [facility] Advance Directives Documents on File Type Date Recorded Patient Plasma Processing Technician Expl anation POLST 06/20/2022 Healthcare Directive 05/11/2021 [...] Code Status Discussion: Reviewed Preferences Care Teams Contract Driver Relationship Specialty Start Date End Date Hilda Cheema MD [address] [place] [address] PCP - General Family Practice 02/08/21 Melvi Maier MBBS [address] [place] [address] Endocrinology Endocrinology 10/17/20 Roxanna Leon, RN [address] [place] [address] Nurse Navigator Oncology 12/12/20 [facility] [address], [place] [address] 03/27/21 [facility] [address] [place] [id number] 05/25/21 Ariella Rowe, SIMIN [address] [place] [address] Occupational Therapy 02/24/24
[2024-04-14 00:56] LABS: Basophils Percent Auto 0.4 % (0.0-3.0); Eosinophils Percent Auto 1.9 % (0.0-7.0); Hematocrit 35.7 % (33.0-51.0); Hemoglobin* 11.6 gm/dL (12.0-16.0); Immature Granulocytes Pct Auto 0.6 %; Lymphocytes Percent Auto 12.5 % (20-44); Mean Corpuscular HGB Conc 33 gm/dL (32-36); Mean Corpuscular Hemoglobin 29 pg (26-34); Mean Corpuscular Volume 88 fL (80-100); Monocytes Percent Auto 9.2 % (0.0-11.0); Neutrophils Percent Auto 75.4 % (42.0-72.0); Platelet Count* 325 K/uL (140-440); RDW Coefficient of Variation % 15.2 % (11.5-15.5); Red Blood Count 4.04 m/uL (4.00-5.20); White Blood Count* 13.08 K/uL (4.50-11.00)
[2024-04-14 01:02] LABS: Slide Review Reflex No
[2024-04-14 01:07] LABS: Troponin, Point-of-Care* 0.07 ng/ml (0.01-0.04)
[2024-04-14 01:08] LABS: Albumin* 3.3 g/dL (3.3-5.0); Chloride* 97 mmol/L (96-114)
[2024-04-14 01:09] LABS: Potassium* 3.9 mmol/L (3.6-5.1); Sodium* 131 mmol/L (135-149)
[2024-04-14 01:11] LABS: Alkaline Phosphatase* 160 U/L (40-150); Anion Gap 9 mEq/L (7-15); Aspartate Amino Transferase* 19 U/L (12-35); Bilirubin Total* 0.8 mg/dL (0.1-1.5); Blood Urea Nitrogen* 12 mg/dL (7-30); Carbon Dioxide* 25 mmol/L (20-32); Creatine Kinase* 90 U/L (41-117); Creatinine* 0.7 mg/dL (0.5-1.5); Est. Creatinine Clearance* 49.12; Estimated Glomerular Filt Rate 95 ml/min; INR 0.98 (0.91-1.10); Prothrombin Time 13.8 Seconds; Total Protein* 5.8 g/dL (6.0-8.3)
[2024-04-14 01:12] LABS: Alanine Aminotransferase* 18 U/L (4-35); Calcium* 8.9 mg/dL (8.4-10.6)
--- NOTE | 2024-04-14 01:18 | PC.NURSE ---
4 staff attempt to to straight cat pt fpr urine sample. héctor area noted to be red, swollen and excoritated. 3rd attempt did use urojet to all of area. OB nurse came and was able to place indwelling with urine sample obtained and sent to lab.
[2024-04-14 01:22] LABS: Appearance Urine Cloudy (Clear); Bilirubin Urine Negative (Negative); Blood Urine 2+ (Negative); Color Urine Yellow (Yellow); Glucose Urine 2+ (Negative); Ketones Urine 2+ (Negative); Leukocyte Esterase Urine Negative (Negative); Nitrite Urine Negative (Negative); Protein Urine 3+ (Negative); Urobilinogen Urine 0.2 (0.2-1.0)
[2024-04-14] MEDS: lidocaine HCL 2 % JELLY (TOP) STERILE 6 ML TOPICAL (01:22)
[2024-04-14 01:23] LABS: Glucose* 484 mg/dL (60-115); NT Pro B Type NatriureticPept* 1510 pg/mL
--- NOTE | 2024-04-14 01:40 | ED.GENADULT ---
HPI - General Adult General Chief complaint: Weakness Stated complaint: Weakness Time Seen by Provider: 04/14/24 00:51 Source: patient and EMS Mode of arrival: EMS Limitations: altered mental status (Memory impairment.) History of Present Illness HPI narrative: 68-year-old female presents the emergency department inability to care for self at home and with weakness. Patient does not follow appropriately clear timeline with her symptoms and confabulates somewhat as well, making interview difficult. Patient was hospitalized for weakness and discharged 4 weeks ago. This note was very helpful. Patient has a history of an aortic valve repair this past summer and also a humerus fracture with surgical repair earlier this winter. Patient states that she broke her arm about 3 weeks ago. Review of the records indicates that this was more likely at least 2 but closer to 3 months ago. It sounds like she did a TCU stay in [place] following a surgical repair of the arm fracture at [place]. She had a GI illness and increased weakness at that time. Ultimately, patient was stabilized on her medications and was able to be discharged. EMS was called to her home today because she was unable to get herself up. She was in a chair and when she went to stand, she was too weak to do so and lowered herself down to the floor. Did not hit her head or cause any new injuries. Reports that her is in better health than she and does help her somewhat. EMS gives the impression that she had been sitting in her own urine for quite some time, was disheveled and clearly not able to care for herself. She denies fever or new injury. She gives a story that sometimes she is able to pop up without any assistance and other times she requires a little bit of help. I inquire about her long-term plans in terms of moving into assisted living or other situation, she does not seem to have appropriate insight into her declining status. She reports chronic pain in the shoulder and hip areas, denies any chest pain or shortness of breath. No nausea vomiting or diarrhea. She has tenderness in the perivaginal area but denies symptoms of urinary tract infection. Overall, she is not a very good historian. She cannot list her medications for me cannot tell me if she is appropriately taking her insulins, anticoagulants or other medications. Does not sound as though she has any home health services in place currently. Past medical history is entirely obtained from records, patient is an incredibly poor historian. Medications are reviewed but I cannot confirm if she is taking these appropriately. Nonsmoker. , currently lives independently with for help. ROS is notable for the musculoskeletal pain in multiple areas, it is a difficult interview and patient denies most symptoms but I do not find her trustworthy as a source. Twelve systems were reviewed. Related Data Home Medications ?Medication ?Instructions ?Recorded ?Confirmed amlodipine 10 mg tablet 10 mg PO DAILY 01/24/22 03/18/24 furosemide 40 mg tablet 40 mg PO DAILY 01/24/22 03/18/24 warfarin 2 mg tablet 4 mg PO QPM 01/24/22 03/18/24 aspirin 81 mg tablet,delayed 81 mg PO DAILY 02/25/22 03/18/24 release (Adult Aspirin Regimen) atorvastatin 40 mg tablet 40 mg PO DAILY 02/25/22 03/18/24 coenzyme Q10 100 mg capsule 200 mg PO DAILY 06/17/22 03/18/24 carvedilol 12.5 mg tablet 12.5 mg PO BID 02/12/24 03/18/24 fluoxetine 10 mg capsule 10 mg PO DAILY 02/12/24 03/18/24 insulin aspart U-100 100 unit/mL 2 - 12 unit subcut TIDWM 02/12/24 03/18/24 (3 mL) subcutaneous pen (Novolog FlexPen U-100 Insulin aspart) insulin glargine 100 unit/mL (3 30 unit subcut HS 02/12/24 03/18/24 mL) subcutaneous pen (Lantus Solostar U-100 Insulin) lisinopril 40 mg tablet 40 mg PO DAILY 02/12/24 03/18/24 acetaminophen 500 mg tablet 1,000 mg PO Q6H PRN 03/18/24 03/18/24 (Acetaminophen Pain Relief) lidocaine HCl 4 % topical cream 1 applic topical DAILY PRN 03/18/24 03/18/24 (Aspercreme (lidocaine HCl)) oxycodone 5 mg tablet 5 mg PO Q4H PRN severe pain 03/18/24 03/18/24 polyethylene glycol 3350 17 17 g PO DAILY PRN 03/18/24 03/18/24 gram/dose oral powder (Miralax) sennosides 8.6 mg-docusate sodium 1 tab-cap PO BID 03/18/24 03/18/24 50 mg tablet (Colace 2-In-1) Allergies Allergy/AdvReac Type Severity Reaction Status Date / Time phytonadione (vitamin K1) Allergy Severe Anaphylaxis Verified 10/14/23 13:22 enoxaparin (From Lovenox) Allergy Diarrhea Verified 10/14/23 13:22 menaquinone-7 (vitamin K2) Allergy Anaphylaxis Verified 10/14/23 13:22 (vitamin K2) [facility] Medical History 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 (ICD-10) Physical debility ?R53.81 - Other malaise (ICD-10) Gastroenteritis ?K52.9 - Noninfective gastroenteritis and colitis, unspecified (ICD-10) Paroxysmal atrial fibrillation ?I48.0 - Paroxysmal atrial fibrillation (ICD-10) Gait instability ?R26.81 - Unsteadiness on feet (ICD-10) Insulin dependent diabetes mellitus Anemia ?D64.9 - Anemia, unspecified (ICD-10) Ataxia ?R27.0 - Ataxia, unspecified (ICD-10) Chronic anticoagulation ?Z79.01 - alf (current) use of anticoagulants (ICD-10) Poorly controlled diabetes mellitus ?E11.65 - Type 2 diabetes mellitus with hyperglycemia (ICD-10) Cognitive impairment ?R41.89 - Other symptoms and signs involving cognitive functions and awareness (ICD-10) Falls ?W19.XXXA - Unspecified fall, initial encounter (ICD-10) Sprain of foot, left ?S93.602A - Unspecified sprain of left foot, initial encounter (ICD-10) Injury of knee, right ?S89.91XA - Unspecified injury of right lower leg, initial encounter (ICD-10) Frailty ?R54 - Age-related physical debility (ICD-10) Osteoarthritis of right knee ?M17.11 - Unilateral primary osteoarthritis, right knee (ICD-10) Medication noncompliance due to cognitive impairment ?R41.9 - Unspecified symptoms and signs involving cognitive functions and awareness (ICD-10) ?Z91.148 - Patient's other noncompliance with medication regimen for other reason (ICD-10) Heart failure ?I50.9 - Heart failure, unspecified (ICD-10) History of DVT (deep vein thrombosis) ?Z86.718 - Personal history of other venous thrombosis and embolism (ICD-10) Endocarditis ?I38 - Endocarditis, valve unspecified (ICD-10) Hyperlipidemia ?E78.5 - Hyperlipidemia, unspecified (ICD-10) Hypertension ?I10 - Essential (primary) hypertension (ICD-10) Diabetic polyneuropathy ?E11.42 - Type 2 diabetes mellitus with diabetic polyneuropathy (ICD-10) Diabetes ?E11.9 - Type 2 diabetes mellitus without complications (ICD-10) Anticoagulated with warfarin ?Z79.01 - exterminator helper (current) use of anticoagulants (ICD-10) Pleural effusion on left ?J90 - Pleural effusion, not elsewhere classified (ICD-10) Multiple subsegmental pulmonary emboli without acute cor pulmonale ?I26.94 - Multiple subsegmental pulmonary emboli without acute cor pulmonale (ICD-10) History of Clostridioides difficile infection ?Z86.19 - Personal history of other infectious and parasitic diseases (ICD-10) Enteritis due to Clostridium difficile ?A04.72 - Enterocolitis due to Clostridium difficile, not specified as recurrent (ICD-10) Congestive heart failure ?I50.9 - Heart failure, unspecified (ICD-10) Cellulitis of right lower extremity ?L03.115 - Cellulitis of right lower limb (ICD-10) Acute kidney injury ?N17.9 - Acute kidney failure, unspecified (ICD-10) Surgical History 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) History of partial colectomy ?Z90.49 - Acquired absence of other specified parts of digestive tract (ICD-10) History of partial gastrectomy ?Z90.3 - Acquired absence of stomach [part of] (ICD-10) H/O splenectomy ?Z90.81 - Acquired absence of spleen (ICD-10) History of open heart surgery (05/17/21) ?Z98.890 - Other specified postprocedural states (ICD-10) History of appendectomy ?Z90.49 - Acquired absence of other specified parts of digestive tract (ICD-10) Family History Mother Colon cancer Diabetes Cirrhosis Brother Colon cancer Father Stroke High blood pressure Heart disease Social History Narrative: She lives at home with her daughter, Oscar, and her . She reports they live in a small home. She primarily walks around the house holding onto furniture. She has a cane that she occasionally uses, especially when she goes out. She lives on [address]. Her daughter sets up her medications but notes that she does not know if her mom is reliably taking her medications. Daughter specifically notes that her mom has probably been forgetting her insulin at times and her warfarin has been missed at least a couple times in the past week or so. What is your current living situation?: I presently have a place to live Problems where you live: no known problems Problems where you live details: N/A In the past 12 months, utilities in danger of being shut off: no In past 12 months, lack of transportation kept you from medical appts, meetings, work, or getting things needed for daily living: no In the past 12 mos, have been you worried that your food would run out before you had money to buy more?: never true In the past 12 mos, the food you bought just didn't last and you didn't have money to buy more?: never true Are you following a diet prescribed by a doctor: Yes (diabetic, heart healthy) Highest level of school completed/degree received: Associate degree: occupational, technical, vocational program Smoking Status: Never smoker Do you use any of these nicotine containing products: None Second hand tobacco smoke exposure: No How often do you have a drink containing alcohol: never How often do you have six or more drinks on one occasion: Never AUDIT-C Alcohol total score: 0 Non-prescribed substance use: denies use Caffeine: Yes (Coffee) How often does anyone, including family, friends and others, physically hurt you: never How often does anyone, including family, friends and others, insult or talk down to you: never How often does anyone, including family, friends and others, threaten you with harm: never How often does anyone, including family, friends and others, scream or curse at you: never Gender Identity: female service: No Exam Const: Vital Signs, click to edit/add: Vital Signs - 24 hr 04/14/24 00:15 04/14/24 01:19 04/14/24 01:32 Temperature 98.0 F Pulse Rate 83 Pulse Rate [Right Pulse Oximeter] 81 Respiratory Rate 18 16 Blood Pressure 176/88 H Blood Pressure [Ri ght Upper Arm] 195/95 H Pulse Oximetry 98 98 98 Oxygen Delivery Me thod Room Air 04/14/24 02:26 Temperature Pulse Rate 94 Pulse Rate [Right Pulse Oximeter] Respiratory Rate 16 Blood Pressure 185/114 H Blood Pressure [Ri ght Upper Arm] Pulse Oximetry 92 Oxygen Delivery Me thod Documenting provider has reviewed patient's vital signs: yes Common normals: no apparent distress Other: Cries out in pain during Nina catheter placement but otherwise mildly agitated in bed but redirectable. Polite and cooperative. HENMT: Common normals: normocephalic, moist oral mucous membranes and oropharynx normal Head and scalp: normocephalic Throat: posterior oropharynx normal Other: Suboptimal recent dental hygiene but otherwise oropharynx appropriate. Eye: Common normals: conjunctivae normal General eye: normal appearance of both eyes Conjunctiva: conjunctiva(e) normal Neck & C-Spine: Common normals: full ROM and no lymphadenopathy Resp: Common normals: normal respiratory effort, no use of accessory muscles and clear to auscultation bilaterally Effort & inspection: able to speak in complete sentences Auscultation: clear to auscultation bilaterally Other: Decreased at bases but seems related to effort and positioning rather than consolidation. Cardio: Other: Rhythm sounds regular right now even though she has a history of AFib. 2/6 systolic murmur consistent with prior history. GI: Common normals: Normal to inspection, nondistended, normoactive bowel sounds present, soft to palpation, non-tender, no hepatosplenomegaly and no masses Palpation: soft and no hepatosplenomegaly Other: Obese but soft, cannot palpate any obvious mass or organ edges. : Other: Tayla intertrigo with skin irritation of the perivulvar area. No obvious appearing bacterial cellulitis. Extremity: Other: Limited range of motion in both hips, left upper extremity. Surgical scarring consistent with probably a 2 to 3-month-old incision on the left shoulder. Left arm is internally rotated and flexed by choice. I can manipulate the elbow and wrist somewhat though she does guard any movements here. She moves the right arm freely. Neuro: Other: Poor coordination and rapid alternating movements in both upper and lower extremities. Slightly slow mentation, confabulation. moderate cognitive impairment evident. Psych: Appearance: unkempt Mood and affect: euthymic mood Insight: limited Judgement: limited Skin: Narrative: Excoriated, irritated skin to the perivulvar areas. No obvious signs of bruising or open sores on other parts of the body. Course Course ED Course: 68-year-old female unable to care for herself, EMS filing vulnerable adult report. It is clear from patient's status that her hygiene needs are not being met. I suspect she is not taking her medications and I do question her safety at this time. Would recommend observation admission, PT consult, social sciences instructor consult. I do think that she needs long-term care placement. Nina catheter will be placed due to need for urinalysis and to properly care for the skin in the perivulvar area. Hopefully this is just for a couple of days. Barrier ointment will be applied to the skin. It will be difficult to transfer patient and for her to ambulate with that left arm fracture. I think her insight into how much she can do with the arm is also fairly limited as she does not seem to push the limits on this. She also cites that she just had open-heart surgery in cannot move her arm muscles. When I clarify that this was over 6 months ago, she seems surprised to hear this. She is unsafe to go home at this time. Will check typical labs to ensure that there is not a new underlying medical reason for her weakness and frailty. EKG, urinalysis, viral swabs and typical labs pending. Anticipate observation admission. Reevaluation(s) Time of Reevaluation #1: 01:52 Reevaluation #1: Labs indicate that she is not taking her insulin, not taking her Coumadin. Urinalysis not suspicious for infection but certainly for ketones protein glucose indicative of other health issues. Troponin is borderline elevated, confirming with repeat and serum level. Will give 10 units of subcu insulin for elevated blood sugar of 484. Time of Reevaluation #2: 02:28 Reevaluation #2: Repeat troponin stable. I do not think she is having an acute cardiac process. Spoke with overnight hospitalist and they were agreeable to an observation admission, PT consult and social sciences instructor consult. They have requested anticoagulation. Will give dose of therapeutic Lovenox per their request. They inquire about additional imaging of the left upper extremity, I do not think this is necessary but do defer to their management if they clinically feel there is necessity. Patient will be admitted for PT, OT and social sciences instructor consult and will likely require long-term long-term facility placement. Vital Signs Vital signs: Initial Vital Signs Temperature 98.0 F 04/14/24 00:15 Temperature Source Temporal Artery Scan 04/14/24 00:15 Pulse Rate 81 04/14/24 00:15 Respiratory Rate 18 04/14/24 00:15 Blood Pressure 195/95 H 04/14/24 00:15 Blood Pressure Mean 128 H 04/14/24 00:15 Blood Pressure Position Sitting 04/14/24 00:15 Pulse Oximetry 98 04/14/24 00:15 Oxygen Delivery Method Room Air 04/14/24 00:15 Vital Signs Temperature 98.0 F 04/14/24 00:15 Pulse Rate 81 04/14/24 00:15 Respiratory Rate 18 04/14/24 00:15 Blood Pressure 195/95 H 04/14/24 00:15 Pulse Oximetry 98 04/14/24 00:15 Oxygen Delivery Method Room Air 04/14/24 00:15 Temperature 98.0 F 04/14/24 00:15 Pulse Rate 94 04/14/24 02:26 Respiratory Rate 16 04/14/24 02:26 Blood Pressure 185/114 H 04/14/24 02:26 Pulse Oximetry 92 04/14/24 02:26 Oxygen Delivery Method Room Air 04/14/24 00:15 Medications Administered Medications: Generic Name Dose Route Start Last Admin Trade Name Freq PRN Reason Stop Dose Admin Insulin Aspart 10 unit 04/14/24 01:29 04/14/24 02:03 Insulin Aspart 100 Unit/Ml SUBCUT 04/14/24 01:30 Not Given ONCE ONE Insulin Human Regular 10 unit 04/14/24 01:55 04/14/24 01:59 Insulin Regular, Human 100 Unit/Ml Vial SUBCUT 04/14/24 01:56 10 unit ONCE ONE Administration Lidocaine HCl 6 ml 04/14/24 00:54 04/14/24 01:22 Lidocaine Hcl 2 % Jelly (Top) Sterile TOPICAL 04/14/24 00:55 6 ml ONCE ONE Administration Medical Decision Making Lab Data Lab results reviewed: Yes I reviewed the patient's lab results Lab results narrative: Mildly elevated troponin, question chronicity. EKG is stable. Very mild leukocytosis, kidney function stable, liver enzymes stable. Blood sugar markedly elevated making me suspect that she is not appropriately taking her insulin and her INR is under 1 making me think that she is not taking her Coumadin. Repeat troponin is stable as well. Labs: Lab Results 04/14/24 04/14/24 04/14/24 Range/Units 00:35 00:45 01:00 WBC 13.08 H (4.50-11.00) K/uL RBC 4.04 (4.00-5.20) m/uL Hgb 11.6 L (12.0-16.0) gm/dL Hct 35.7 (33.0-51.0) % MCV 88 (80-100) fL MCH 29 (26-34) pg MCHC 33 (32-36) gm/dL RDW Coeff of Aditi 15.2 (11.5-15.5) % Plt Count 325 (140-440) K/uL Neut % (Auto) 75.4 H (42.0-72.0) % Lymph % (Auto) 12.5 L (20-44) % [place] % (Auto) 9.2 (0.0-11.0) % Eos % (Auto) 1.9 (0.0-7.0) % Baso % (Auto) 0.4 (0.0-3.0) % Neut # (Auto) 9.90 H (1.7-7.0) K/uL Lymph # (Auto) 1.60 (0.90-2.90) K/uL [place] # (Auto) 1.20 H (0.00-0.90) K/UL Eos # (Auto) 0.20 (0.00-0.50) K/uL Baso # (Auto) 0.10 (0.00-0.30) K/uL Abs Immat Gran (auto) 0.10 (0.00-0.30) K/uL Imm/Tot Granulo (auto) 0.6 % INR 0.98 (0.91-1.10) Sodium 131 L (135-149) mmol/L Potassium 3.9 (3.6-5.1) mmol/L Chloride 97 (96-114) mmol/L Carbon Dioxide 25 (20-32) mmol/L Anion Gap 9 (7-15) mEq/L BUN 12 (7-30) mg/dL Creatinine 0.7 (0.5-1.5) mg/dL Estimated Creat Clear 49.12 Estimated GFR 95 ml/min Glucose 484 H* (60-115) mg/dL Calcium 8.9 (8.4-10.6) mg/dL Total Bilirubin 0.8 (0.1-1.5) mg/dL AST 19 (12-35) U/L ALT 18 (4-35) U/L Alkaline Phosphatase 160 H (40-150) U/L Total Creatine Kinase 90 (41-117) U/L Troponin I 0.07 H* (0.01-0.04) ng/mL NT-Pro-B Natriuret Pep 1510 pg/mL Total Protein 5.8 L (6.0-8.3) g/dL Albumin 3.3 (3.3-5.0) g/dL Urine Color (Yellow) Urine Appearance (Clear) Urine pH (5.0-8.5) Ur Specific [place] (1.000-1.030) Urine Protein (Negative) Urine Glucose (UA) (Negative) Urine Ketones (Negative) Urine Blood (Negative) Urine Nitrite (Negative) Urine Bilirubin (Negative) Urine Urobilinogen (0.2-1.0) Ur Leukocyte Esterase (Negative) Urine RBC (0-2) Urine WBC (0-5) Ur Squamous Epith Cells (None-Few) Amorphous Sediment (None) Urine Bacteria (None) SARS-CoV-2 (PCR) Negative SARS-CoV-2 (Negative) Influenza Type A (PCR) Negative PCR FLU A (Negative) Influenza Type B (PCR) Negative PCR FLU B (Negative) RSV (PCR) Negative PCR RSV (Negative) Lab Acknowledgement POC Troponin I 0.07 H (0.01-0.04) ng/ml 04/14/24 04/14/24 04/14/24 Range/Units 01:14 01:15 02:00 WBC (4.50-11.00) K/uL RBC (4.00-5.20) m/uL Hgb (12.0-16.0) gm/dL Hct (33.0-51.0) % MCV (80-100) fL MCH (26-34) pg MCHC (32-36) gm/dL RDW Coeff of Aditi (11.5-15.5) % Plt Count (140-440) K/uL Neut % (Auto) (42.0-72.0) % Lymph % (Auto) (20-44) % [place] % (Auto) (0.0-11.0) % Eos % (Auto) (0.0-7.0) % Baso % (Auto) (0.0-3.0) % Neut # (Auto) (1.7-7.0) K/uL Lymph # (Auto) (0.90-2.90) K/uL [place] # (Auto) (0.00-0.90) K/UL Eos # (Auto) (0.00-0.50) K/uL Baso # (Auto) (0.00-0.30) K/uL Abs Immat Gran (auto) (0.00-0.30) K/uL Imm/Tot Granulo (auto) % INR (0.91-1.10) Sodium (135-149) mmol/L Potassium (3.6-5.1) mmol/L Chloride (96-114) mmol/L Carbon Dioxide (20-32) mmol/L Anion Gap (7-15) mEq/L BUN (7-30) mg/dL Creatinine (0.5-1.5) mg/dL Estimated Creat Clear Estimated GFR ml/min Glucose (60-115) mg/dL Calcium (8.4-10.6) mg/dL Total Bilirubin (0.1-1.5) mg/dL AST (12-35) U/L ALT (4-35) U/L Alkaline Phosphatase (40-150) U/L Total Creatine Kinase (41-117) U/L Troponin I (0.01-0.04) ng/mL NT-Pro-B Natriuret Pep pg/mL Total Protein (6.0-8.3) g/dL Albumin (3.3-5.0) g/dL Urine Color Yellow (Yellow) Urine Appearance Cloudy A (Clear) Urine pH 7.0 (5.0-8.5) Ur Specific [place] 1.020 (1.000-1.030) Urine Protein 3+ A (Negative) Urine Glucose (UA) 2+ A (Negative) Urine Ketones 2+ A (Negative) Urine Blood 2+ A (Negative) Urine Nitrite Negative (Negative) Urine Bilirubin Negative (Negative) Urine Urobilinogen 0.2 (0.2-1.0) Ur Leukocyte Esterase Negative (Negative) Urine RBC 2-5 A (0-2) Urine WBC 5-10 A (0-5) Ur Squamous Epith Cells Few (None-Few) Amorphous Sediment Few A (None) Urine Bacteria Moderate A (None) SARS-CoV-2 (PCR) (Negative) Influenza Type A (PCR) (Negative) Influenza Type B (PCR) (Negative) RSV (PCR) (Negative) Lab Acknowledgement Test Added POC Troponin I 0.07 H (0.01-0.04) ng/ml ECG Data Attestation: I personally reviewed and interpreted this ECG as follows: Prior ECG tracings: available for review (Comparison 02/12/2024) Interpretation: Sinus rhythm with right bundle-branch block and a bifascicular block. No new ST or T-wave abnormalities in comparison to 02/05 08/10. Stable EKG. Discharge Plan Discharge Clinical Impression: Weakness, Unable to care for self, Candidal intertrigo, Acute hyperglycemia Prescriptions: No Action warfarin 2 mg tablet 4 mg PO QPM amlodipine 10 mg tablet 10 mg PO DAILY furosemide 40 mg tablet 40 mg PO DAILY coenzyme Q10 100 mg capsule 200 mg PO DAILY oxycodone 5 mg tablet 5 mg PO Q4H PRN (Reason: severe pain) lidocaine HCl [Aspercreme (lidocaine HCl)] 4 % cream 1 applic topical DAILY PRN sennosides-docusate sodium [Colace 2-In-1] 8.6-50 mg tablet 1 tab-cap PO BID polyethylene glycol 3350 [Miralax] 17 gram/dose powder 17 g PO DAILY PRN acetaminophen [Acetaminophen Pain Relief] 500 mg tablet 1,000 mg PO Q6H PRN aspirin [Adult Aspirin Regimen] 81 mg tablet,delayed release (DR/EC) 81 mg PO DAILY atorvastatin 40 mg tablet 40 mg PO DAILY carvedilol 12.5 mg tablet 12.5 mg PO BID fluoxetine 10 mg capsule 10 mg PO DAILY insulin glargine [Lantus Solostar U-100 Insulin] 100 unit/mL (3 mL) insulin pen 30 unit subcut HS lisinopril 40 mg tablet 40 mg PO DAILY insulin aspart U-100 [Novolog FlexPen U-100 Insulin] 100 unit/mL (3 mL) Insulin Pen 2 - 12 unit subcut TIDWM Follow Up/Referrals: Hilda Cheema MD [Primary Care Provider] -
[2024-04-14 01:42] LABS: Troponin I* 0.07 ng/mL (0.01-0.04)
[2024-04-14 01:46] LABS: PCR FLU A Negative PCR FLU A (Negative); PCR FLU B Negative PCR FLU B (Negative); PCR RSV Negative PCR RSV (Negative); SARS PCR* Negative SARS-CoV-2 (Negative)
[2024-04-14 01:48] LABS: Amorphous Sediment Urine Few; Bacteria Urine Moderate; Squamous Epithelial Cell Urine Few (None-Few)
--- OUTSIDE RECORDS SUMMARY | 2024-04-14 01:52 | XMS_ITS | Clinical Summary ---
Author Organization [employer] [facility] Address [address] [place] [address] Care Team Providers Care Maintenance Millwright Name Role Phone Melvi Maier Unavailable [phone] Roxanna Leon RN Unavailable [phone] Hilda Cheema MD Primary Care Provider [facility] Unavailable [facility] Unavailable [phone] Ariella Rowe Unavailable Allergies Active Allergy Reactions [...] be used to read blood sugars per winder operator's directions. 6 Each 3 024 Active atorvastatin [...] replacement) 05/16/2021 Overview (05/16/2021): Aortic Valve - Gatekeeper SystemciVictorious INSPIRIS RESILIA Aortic Valve - 21mm - REF:[id number] - SN: [id number] - Implanted by MD Terell Cedillo on [...] Type Department Care Team Description 04/06/2024 Telephone [facility] [address] [place] [address] Hilda Cheema MD Lab (Lab appt next week) 04/06/2024 Anticoagulation (warfarin) [facility] [address] [place] [address] 1, [facility] Anticoagulation (Home Care) 04/05/2024 Refill [facility] [address] [place] [address] Hilda Cheema MD Refill Request (Amlodipine) 03/30/2024 Anticoagulation (warfarin) [facility] [address] [place] [address] 1, [facility] Anticoagulation (Home Care) 03/26/2024 Anticoagulation (warfarin) [facility] [address] [place] [address] 1, [facility] Anticoagulation 03/25/2024 11:45 AM COCOA BUTTER FILTER OPERATOR Office Visit [facility] [address] [place] [address] Hilda Cheema MD Hospital F/U (03/19/2024 gastroenteritis/Need s to have an RN go over her insulin dosing with her.) 03/25/2024 Telephone [facility] [address] [place] [address] Hilda Cheema MD ACC Order Request (Home Care Occupation therapy) 03/24/2024 11:05 AM COCOA BUTTER FILTER OPERATOR Ancillary Procedure [address] [place] [address] 03/24/2024 11:00 AM COCOA BUTTER FILTER OPERATOR Office Visit [address] [address] Meliton Juarez MD Surgical Followup (S/P Left humerus intramedullary nailling DOS:02/17/2024 Dr. Meliton Juarez) 03/24/2024 Travel 03/23/2024 Anticoagulation (warfarin) [facility] [address] [place] [address] 1, [facility] Anticoagulation (chart update) 03/23/2024 Telephone [facility] [address] [place] [address] Hilda Cheema MD Error-please disregard 03/23/2024 Telephone [facility] [address] [place] [address] Hilda Cheema MD Medication Management (Warfarin) 03/22/2024 Refill [facility] [address] [place] [address] Hilda Cheema MD Refill Request (Furosemide) 03/21/2024 Refill [facility] [address] [place] [place] [address] Hilda Cheema MD Refill Request (Contour Next Test Strips) 03/17/2024 11:45 AM COCOA BUTTER FILTER OPERATOR Office Visit [facility] [address] [place] [address] Hilda Cheema MD Hospital F/U (Hospital DOD 02/12/24 TCU DOD 03/12/24 Displaced spiral fracture of shaft of humerus, left arm,) 03/17/2024 Anticoagulation (warfarin) [facility] [address] [place] [address] 1, [facility] Anticoagulation (Chart update.) 03/17/2024 Telephone [facility] [address] [place] [address] Hilda Cheema MD Anticoagulation (BPA - CEPHALEXIN 500 MG CAPSULE) 03/17/2024 Travel 03/16/2024 Telephone [facility] [address] [place] [address] Hilda Cheema MD Outside Order (Verbal Orders /Nurse Visits and Home Health Aid ) 03/16/[address] [address] Hilda Cheema MD Refill Request (Lisinopril) 03/15/2024 Patient Outreach [facility] Management - Care Management Navigation/[facility] [employer] [address] [place] [address] Ariella Rowe COTA TCU Transition 03/15/2024 Telephone [facility] [address] [place] [address] Hilda Cheema MD TCU Orders (VERBAL ORDERS) 03/12/2024 Patient Outreach [facility] [address] [place] [address] Heather Franklin, [facility] F/U; Primary Care RN SNF/TCU Follow Up (OR Catrachita Mehta TCU 03/12/24) 03/11/2024 9:30 AM [facility] [address] [address] Sarahy Griffin NP Transitional Care Visit (TCU Discharge Summary) 03/11/2024 Telephone [facility] [place] [address] [place] [phone] Meliton Juarez MD 03/10/2024 Anticoagulation (warfarin) [address] [address] Clinic, Asct Tcu Inr Anticoagulation (TCU) 03/09/2024 8:00 AM [facility] [address] [address] Sarahy Griffin NP Transitional Care Visit (Follow up) 03/09/2024 Telephone [facility] [address] [phone] Meliton Juarez MD Appointment (First Post-Op) 03/05/2024 Anticoagulation (warfarin) [address] [address] Clinic, Asct Tcu Inr Anticoagulation (TCU) 03/03/2024 9:00 AM [facility] [address] [address] Georgina Jane MD Transitional Care Visit (Follow up) 03/03/2024 Orders Only [address] [address] Georgina Jane MD <No scans attached> 03/03/2024 Nurse Triage [address] [address] Eleni Anderson TOOL AND DIE TECHNICIAN Concerns 03/01/2024 8:30 AM [facility] [address] [address] Eleni Anderson NP Transitional Care Visit (Follow up) 03/01/2024 Anticoagulation (warfarin) [address] [address] Clinic, Asct Tcu Inr Anticoagulation (TCU) 02/26/[address] [phone] Hilda Cheema MD Anticoagulation (Annual re-enrollment- Warfarin) 02/26/2024 Anticoagulation (warfarin) [address] [address] Clinic, Asct Tcu Inr Anticoagulation (TCU) 02/25/2024 9:45 AM [facility] [address] [address] Georgina Jane MD Transitional Care Visit (Initial) 02/24/2024 8:00 AM [facility] [address] [address] Sarahy Griffin NP Transitional Care Visit (Admit) 02/24/2024 Nurse Triage [address] [address] Sarahy Griffin NP Anticoagulation (Requesting orders) 02/24/2024 Anticoagulation (warfarin) [address] [address] Clinic, Asct Tcu Inr Anticoagulation (TCU) 02/24/[address] [address] Sarahy Griffin NP Anticoagulation (INR Orders) 02/24/2024 Patient Outreach [facility] Care Management - Care Management Navigation/[facility] [employer] [address] [place] [address] Ariella Rowe COTA TCU Transition 02/24/2024 Telephone [facility] [address] [place] [address] Hilda Cheema MD Anticoagulation (Clarification needed) 02/17/2024 3:35 PM COCOA BUTTER FILTER OPERATOR Anesthesia Event [facility] [address] [place] [address] Cecilio Ray CRNA Gharib, Erin Elizabeth, MD 02/17/2024 1:55 PM COCOA BUTTER FILTER OPERATOR - 02/17/2024 6:07 PM COCOA BUTTER FILTER OPERATOR Surgery [facility] [address] [place] [address] Meliton Juarez MD LEFT HUMERUS INTERMEDULLARY NAILING 02/16/2024 Travel 02/12/2024 8:35 PM COCOA BUTTER FILTER OPERATOR - 02/23/2024 2:00 PM COCOA BUTTER FILTER OPERATOR Hospital Encounter [facility] [address] [place] [address] [facility], MD Mike Washington, MD [...] 2-3; Paroxysmal atrial fibrillation (HC) Discharge Disposition: [facility] 02/12/2024 Orders Only [facility] Scanner 1 scan: (1-Ord) [facility], XR HUMERUS LT, 02/12/2024 02/12/2024 Orders Only [facility] Scanner 1 scan: (1-Ord) [facility], XR LT HUMERUS , 02/12/2024 02/11/2024 Orders Only [facility] Scanner 1 scan: (1-Ord) [facility], XR HUMERUS LT, 02/11/2024 02/11/2024 Refill [facility] [address] [place] [address] Hilda Cheema MD Refill Request (Atorvastatin) 02/03/2024 3:00 PM COCOA BUTTER FILTER OPERATOR Orders Only [facility] [address] [place] [address] Lab, [facility] 02/03/2024 Anticoagulation (warfarin) [facility] [address] [place] [address] 1, [facility] Anticoagulation 02/03/2024 Travel 01/26/2024 Refill [facility] [address] [place] [address] Hilda Cheema MD Refill Request (Warfarin) 01/15/2024 Telephone [facility] [address] [facility] [address] Hilda Cheema MD Anticoagulation (INR OVERDUE REMINDER #2 ) 01/13/2024 Telephone [facility] [address] [place] [address] Hilda Cheema MD Refill Request ([employer] Main[employer] 3 sensors) from Last 3 Months [...] Father (Age 56) OF A CVA OR AL Mother HAS UNKNOWN KARLY OLOGY LIVER DISEASE, [...] Date Recorded PHQ-2 TOTAL SCORE 1 07/04/2023 [facility] - Occupational Stress [...] on file Legal Sex Female 6:57 AM COCOA BUTTER FILTER OPERATOR Gender Identity Not on file Sexual Orientation [...] Comments Blood Pressure 163/81 03/25/2024 11:53 AM COCOA BUTTER FILTER OPERATOR Pulse 73 03/25/2024 11:53 AM COCOA BUTTER FILTER OPERATOR Temperature 36.8 C (98.2 F) 02/22/2024 11:57 PM COCOA BUTTER FILTER OPERATOR Respiratory Rate 16 02/23/2024 10:0 5 AM COCOA BUTTER FILTER OPERATOR Oxygen Saturation 98% 03/25/2024 11: 53 AM COCOA BUTTER FILTER OPERATOR Inhaled Oxygen Concentration - - Weight 104.6 kg (230 lb 9.6 oz) 02/22/2024 6:52 AM COCOA BUTTER FILTER OPERATOR Height 165.1 cm (5' 5) 07/04/2023 1:58 PM CDT Body Mass Index 38.37 07/04/2023 1:58 PM CDT Plan of Treatment Upcoming Encounters Date Type Department Care Team (Late st Contact Info) Description 05/05/2024 10:15 AM CDT Office Visit [facility] [place] [address] [phone] Meliton Juarez MD [address] [address] Health Maintenance Due Date Last Done Comments [...] 3, 03/27/2021 Medical Devices Implanted Type Area Audio Visual Engineer Device Identifier Shelf Expiration Date Model / Serial / Lot Valve Aortic 21mm Inspirus Resilia Tissue - [id number] Implanted:Qty: 1 on 05/16/2021 by Agustin Cedillo MD at [facility] N/A: Aortic Valve Salter Help/Systemsci[employer] Serena 11/29/2024 [id number] / [id number] / Description:No rinse per man ufacture's instructions. Humeral Nail 8/7mm X 24cm Implanted:Qty: 1 on 02/17/2024 by Meliton Juarez MD at [facility] Left: Humerus [id number] / / Description:HUMERAL NAIL 8/7 MM X 24CM Screw Bone 5x34mm Trigen Cnclls Slf Tppng - [id number] Implanted:Qty: 1 on 02/17/2024 by Meliton Juarez MD at [facility] Left: Humerus [employer] 03/22/2033 [id number] / / [id number] Screw Bone 5x38mm Trigen Cnclls Slf Tppng - [id number] Implanted:Qty: 1 on 02/17/2024 by Meliton Juarez MD at [facility] Left: Humerus [employer] 04/19/2033 [id number] / / [id number] Screw 5.0 X 28 Self Tap Implanted:Qty: 1 on 02/17/2024 by Meliton Juarez MD at [facility] Left: Humerus 09/05/2033 [id number] / / [id number] Description:SCREW 5.0 X 28 S ELF TAP Screw Bone 4x20mm Trigen Jayesh Slf Tppng - [id number] Implanted:Qty: 1 on 02/17/2024 by Meliton Juarez MD at [facility] Left: Humerus [employer] 08/29/2033 [id number] / / [id number] Screw Bone 4x22mm Trigen Jayesh Slf Tppng - [id number] Implanted:Qty: 1 on 02/17/2024 by Meliton Juarez MD at [facility] Left: Humerus [employer] 08/30/2033 [id number] / / [id number] Procedures Procedure Name Priority Date/Time Associated Diagnosis Comments HEMOGLOBIN A1C MONITORING (POCT) Routine 03/25/2024 12:27 PM COCOA BUTTER FILTER OPERATOR Type 2 diabetes mellitus with diabetic polyneuropathy, with long-term current use of insulin (HC) PROTIME-INR Routine 03/25/2024 12:26 PM COCOA BUTTER FILTER OPERATOR H/O: Cardioembolic ischemic stroke Anticoagulation monitoring, INR range 2-3 Patent foramen ovale XR HUMERUS MIN 2 VIEWS LEFT Routine 03/24/2024 11:03 AM COCOA BUTTER FILTER OPERATOR S/P Left humerus intramedullary nailling DOS:02/17/2024 Dr. Meliton Juarez INR,POCT Routine 03/05/2024 GLUCOSE METER Timed 02/23/2024 11:08 AM COCOA BUTTER FILTER OPERATOR MAGNESIUM Early AM 02/23/2024 7:42 AM COCOA BUTTER FILTER OPERATOR BASIC METABOLIC PANEL Early AM 02/23/2024 7:42 AM COCOA BUTTER FILTER OPERATOR PROTIME-INR Early AM 02/23/2024 7:42 AM COCOA BUTTER FILTER OPERATOR GLUCOSE METER Timed 02/23/2024 7:16 AM COCOA BUTTER FILTER OPERATOR GLUCOSE METER Timed 02/22/2024 9:42 PM COCOA BUTTER FILTER OPERATOR GLUCOSE METER Timed 02/22/2024 4:49 PM COCOA BUTTER FILTER OPERATOR GLUCOSE METER Timed 02/22/2024 11:49 AM COCOA BUTTER FILTER OPERATOR APTT Today 02/22/2024 10:26 AM COCOA BUTTER FILTER OPERATOR HEMOGLOBIN Early AM 02/22/2024 10:26 AM COCOA BUTTER FILTER OPERATOR ELECTROLYTE PANEL Early AM 02/22/2024 10:26 AM COCOA BUTTER FILTER OPERATOR PROTIME-INR Early AM 02/22/2024 10:26 AM COCOA BUTTER FILTER OPERATOR GLUCOSE METER Timed 02/22/2024 6:46 AM COCOA BUTTER FILTER OPERATOR GLUCOSE METER Timed 02/21/2024 9:31 PM COCOA BUTTER FILTER OPERATOR GLUCOSE METER Timed 02/21/2024 4:58 PM COCOA BUTTER FILTER OPERATOR GLUCOSE METER Timed 02/21/2024 1:26 PM COCOA BUTTER FILTER OPERATOR APTT Timed 02/21/2024 7:28 AM COCOA BUTTER FILTER OPERATOR PROTIME-INR Early AM 02/21/2024 7:28 AM COCOA BUTTER FILTER OPERATOR HEMATOCRIT Early AM 02/21/2024 7:28 AM COCOA BUTTER FILTER OPERATOR HEMOGLOBIN Early AM 02/21/2024 7:28 AM COCOA BUTTER FILTER OPERATOR PLATELET COUNT Early AM 02/21/2024 7:28 AM COCOA BUTTER FILTER OPERATOR GLUCOSE METER Timed 02/21/2024 7:16 AM COCOA BUTTER FILTER OPERATOR GLUCOSE METER Timed 02/20/2024 10:28 PM COCOA BUTTER FILTER OPERATOR APTT Timed 02/20/2024 9:35 PM COCOA BUTTER FILTER OPERATOR GLUCOSE METER Timed 02/20/2024 4:57 PM COCOA BUTTER FILTER OPERATOR APTT ETIENNE 02/20/2024 12:24 PM COCOA BUTTER FILTER OPERATOR APTT Timed 02/20/2024 12:24 PM COCOA BUTTER FILTER OPERATOR BASIC METABOLIC PANEL Early AM 02/20/2024 12:24 PM COCOA BUTTER FILTER OPERATOR PROTIME-INR Early AM 02/20/2024 12:24 PM COCOA BUTTER FILTER OPERATOR HEMATOCRIT Early AM 02/20/2024 12:24 PM COCOA BUTTER FILTER OPERATOR HEMOGLOBIN Early AM 02/20/2024 12:24 PM COCOA BUTTER FILTER OPERATOR PLATELET COUNT Early AM 02/20/2024 12:24 PM COCOA BUTTER FILTER OPERATOR GLUCOSE METER Timed 02/20/2024 11:38 AM COCOA BUTTER FILTER OPERATOR GLUCOSE METER Timed 02/20/2024 6:34 AM COCOA BUTTER FILTER OPERATOR APTT Timed 02/20/2024 12:30 AM COCOA BUTTER FILTER OPERATOR GLUCOSE METER Timed 02/19/2024 9:22 PM COCOA BUTTER FILTER OPERATOR GLUCOSE METER Timed 02/19/2024 5:24 PM COCOA BUTTER FILTER OPERATOR GLUCOSE METER Timed 02/19/2024 1:40 PM COCOA BUTTER FILTER OPERATOR BASIC METABOLIC PANEL Timed 02/19/2024 10:45 AM COCOA BUTTER FILTER OPERATOR PROTIME-INR Early AM 02/19/2024 10:45 AM COCOA BUTTER FILTER OPERATOR HEMATOCRIT Early AM 02/19/2024 10:45 AM COCOA BUTTER FILTER OPERATOR HEMOGLOBIN Early AM 02/19/2024 10:45 AM COCOA BUTTER FILTER OPERATOR PLATELET COUNT Early AM 02/19/2024 10:45 AM COCOA BUTTER FILTER OPERATOR GLUCOSE METER Timed 02/19/2024 8:24 AM COCOA BUTTER FILTER OPERATOR XR HUMERUS MIN 2 VIEWS LEFT Routine 02/19/2024 8:19 AM COCOA BUTTER FILTER OPERATOR GLUCOSE METER Timed 02/19/2024 6:46 AM COCOA BUTTER FILTER OPERATOR APTT Today 02/18/2024 9:28 PM COCOA BUTTER FILTER OPERATOR GLUCOSE METER Timed 02/18/2024 9:08 PM COCOA BUTTER FILTER OPERATOR GLUCOSE METER Timed 02/18/2024 5:08 PM COCOA BUTTER FILTER OPERATOR HEMATOCRIT Early AM 02/18/2024 4:31 PM COCOA BUTTER FILTER OPERATOR HEMOGLOBIN Early AM 02/18/2024 4:31 PM COCOA BUTTER FILTER OPERATOR PLATELET COUNT Early AM 02/18/2024 4:31 PM COCOA BUTTER FILTER OPERATOR GLUCOSE METER Timed 02/18/2024 11:36 AM COCOA BUTTER FILTER OPERATOR GLUCOSE METER Timed 02/18/2024 6:42 AM COCOA BUTTER FILTER OPERATOR GLUCOSE METER Timed 02/17/2024 10:32 PM COCOA BUTTER FILTER OPERATOR GLUCOSE METER Timed 02/17/2024 7:02 PM COCOA BUTTER FILTER OPERATOR XR HUMERUS MIN 2 VIEWS LEFT PORTABLE Routine 02/17/2024 6:09 PM COCOA BUTTER FILTER OPERATOR XR C-ARM EQUAL OR GREATER 2 HR Routine 02/17/2024 6:07 PM COCOA BUTTER FILTER OPERATOR ENDOTRACHEAL TUBE Routine 02/17/2024 4:1 5 PM COCOA BUTTER FILTER OPERATOR ENDOTRACHEAL TUBE Routine 02/17/2024 4:1 5 PM COCOA BUTTER FILTER OPERATOR TYPE & SCREEN STAT 02/17/2024 3:22 PM COCOA BUTTER FILTER OPERATOR OPEN REDUCTION INTERNAL FIXATION HUMERUS Class D Urgent 02/17/2024 3:17 PM COCOA BUTTER FILTER OPERATOR Left humeral shaft fracture Case Notes Supine On [facility] HUMERAL NAIL SET/LOANER GLUCOSE METER Timed 02/17/2024 2:04 PM COCOA BUTTER FILTER OPERATOR GLUCOSE METER Timed 02/17/2024 11:39 AM COCOA BUTTER FILTER OPERATOR ECHO TTE COMPLETE W CONTRAST Routine 02/17/2024 9:37 AM COCOA BUTTER FILTER OPERATOR HEMATOCRIT Early AM 02/17/2024 6:20 AM COCOA BUTTER FILTER OPERATOR HEMOGLOBIN Early AM 02/17/2024 6:20 AM COCOA BUTTER FILTER OPERATOR PLATELET COUNT Early AM 02/17/2024 6:20 AM COCOA BUTTER FILTER OPERATOR GLUCOSE METER Timed 02/17/2024 6:01 AM COCOA BUTTER FILTER OPERATOR APTT Today 02/16/2024 11:43 PM COCOA BUTTER FILTER OPERATOR GLUCOSE METER Timed 02/16/2024 9:39 PM COCOA BUTTER FILTER OPERATOR APTT Today 02/16/2024 4:56 PM COCOA BUTTER FILTER OPERATOR GLUCOSE METER Timed 02/16/2024 4:25 PM COCOA BUTTER FILTER OPERATOR GLUCOSE METER Timed 02/16/2024 11:43 AM COCOA BUTTER FILTER OPERATOR XR CHEST 1 VIEW PORTABLE ETIENNE 02/16/2024 8:10 AM COCOA BUTTER FILTER OPERATOR GLUCOSE METER Timed 02/16/2024 6:54 AM COCOA BUTTER FILTER OPERATOR PRO-BNP ETIENNE 02/16/2024 5:48 AM COCOA BUTTER FILTER OPERATOR APTT Early AM 02/16/2024 5:48 AM COCOA BUTTER FILTER OPERATOR CBC W PLT NO DIFF Early AM 02/16/2024 5:4 8 AM COCOA BUTTER FILTER OPERATOR PROTIME-INR Early AM 02/16/2024 5:48 AM COCOA BUTTER FILTER OPERATOR SODIUM Early AM 02/16/2024 5:48 AM COCOA BUTTER FILTER OPERATOR MAGNESIUM Early AM 02/16/2024 5:48 AM COCOA BUTTER FILTER OPERATOR POTASSIUM Early AM 02/16/2024 5:48 AM COCOA BUTTER FILTER OPERATOR CREATININE Early AM 02/16/2024 5:48 AM COCOA BUTTER FILTER OPERATOR GLUCOSE METER Timed 02/15/2024 9:41 PM COCOA BUTTER FILTER OPERATOR APTT Timed 02/15/2024 6:11 PM COCOA BUTTER FILTER OPERATOR GLUCOSE METER Timed 02/15/2024 5:22 PM COCOA BUTTER FILTER OPERATOR GLUCOSE METER Timed 02/15/2024 11:33 AM COCOA BUTTER FILTER OPERATOR APTT Timed 02/15/2024 10:45 AM COCOA BUTTER FILTER OPERATOR GLUCOSE METER Timed 02/15/2024 7:35 AM COCOA BUTTER FILTER OPERATOR GLUCOSE METER Timed 02/15/2024 6:29 AM COCOA BUTTER FILTER OPERATOR PROTIME-INR Early AM 02/15/2024 6:27 AM COCOA BUTTER FILTER OPERATOR CREATININE Early AM 02/15/2024 6:27 AM COCOA BUTTER FILTER OPERATOR CBC W PLT NO DIFF Early AM 02/15/2024 6:2 7 AM COCOA BUTTER FILTER OPERATOR APTT Timed 02/15/2024 1:14 AM COCOA BUTTER FILTER OPERATOR GLUCOSE METER Timed 02/14/2024 9:36 PM COCOA BUTTER FILTER OPERATOR APTT Timed 02/14/2024 6:34 PM COCOA BUTTER FILTER OPERATOR GLUCOSE METER Timed 02/14/2024 5:17 PM COCOA BUTTER FILTER OPERATOR GLUCOSE METER Timed 02/14/2024 11:54 AM COCOA BUTTER FILTER OPERATOR CREATININE ETIENNE 02/14/2024 10:52 AM COCOA BUTTER FILTER OPERATOR BUN ETIENNE 02/14/2024 10:52 AM COCOA BUTTER FILTER OPERATOR HEMATOCRIT ETIENNE 02/14/2024 10:52 AM COCOA BUTTER FILTER OPERATOR HEMOGLOBIN ETIENNE 02/14/2024 10:52 AM COCOA BUTTER FILTER OPERATOR PLATELET COUNT ETIENNE 02/14/2024 10:52 AM COCOA BUTTER FILTER OPERATOR APTT ETIENNE 02/14/2024 10:52 AM COCOA BUTTER FILTER OPERATOR PROTIME-INR ETIENNE 02/14/2024 10:52 AM COCOA BUTTER FILTER OPERATOR GLUCOSE METER Timed 02/14/2024 6:50 AM COCOA BUTTER FILTER OPERATOR PROTIME-INR Early AM 02/14/2024 4:43 AM COCOA BUTTER FILTER OPERATOR CBC W PLT NO DIFF Early AM 02/14/2024 4:4 3 AM COCOA BUTTER FILTER OPERATOR CREATININE Early AM 02/14/2024 4:43 AM COCOA BUTTER FILTER OPERATOR GLUCOSE METER Timed 02/13/2024 10:12 PM COCOA BUTTER FILTER OPERATOR GLUCOSE METER Timed 02/13/2024 4:47 PM COCOA BUTTER FILTER OPERATOR GLUCOSE METER Timed 02/13/2024 1:04 PM COCOA BUTTER FILTER OPERATOR SCAN CORRESP-EKG RESULTS 02/13/2024 10:56 AM COCOA BUTTER FILTER OPERATOR SCAN CORRESP-LABORATORY RESULTS 02/13/2024 10:56 AM COCOA BUTTER FILTER OPERATOR SCAN CORRESP-LABORATORY RESULTS 02/13/2024 10:56 AM COCOA BUTTER FILTER OPERATOR SCAN CORRESP-IMAGING 02/13/2024 10:56 AM COCOA BUTTER FILTER OPERATOR GLUCOSE METER Timed 02/13/2024 8:52 AM COCOA BUTTER FILTER OPERATOR PROTIME-INR Early AM 02/13/2024 7:12 AM COCOA BUTTER FILTER OPERATOR CBC W PLT NO DIFF Early AM 02/13/2024 7:1 2 AM COCOA BUTTER FILTER OPERATOR SODIUM Early AM 02/13/2024 7:12 AM COCOA BUTTER FILTER OPERATOR POTASSIUM Early AM 02/13/2024 7:12 AM COCOA BUTTER FILTER OPERATOR CREATININE Early AM 02/13/2024 7:12 AM COCOA BUTTER FILTER OPERATOR GLUCOSE METER Timed 02/12/2024 9:51 PM COCOA BUTTER FILTER OPERATOR TYPE & SCREEN Today 02/12/2024 9:34 PM COCOA BUTTER FILTER OPERATOR CREATININE Today 02/12/2024 9:34 PM COCOA BUTTER FILTER OPERATOR POTASSIUM Today 02/12/2024 9:34 PM COCOA BUTTER FILTER OPERATOR PROTIME-INR ETIENNE 02/12/2024 9:34 PM COCOA BUTTER FILTER OPERATOR HEMOGLOBIN ETIENNE 02/12/2024 9:34 PM COCOA BUTTER FILTER OPERATOR SCAN-RADIOLOGY REPORT 02/12/2024 12:00 AM COCOA BUTTER FILTER OPERATOR SCAN-RADIOLOGY REPORT 02/12/2024 12:00 AM COCOA BUTTER FILTER OPERATOR SCAN-RADIOLOGY REPORT 02/11/2024 12:00 AM COCOA BUTTER FILTER OPERATOR INR,POCT Routine 02/03/2024 2:55 PM COCOA BUTTER FILTER OPERATOR H/O: Cardioembolic ischemic stroke Anticoagulation monitoring, INR [...] for screening mammogram COLONOSCOPY 02/03/2020 11:11 AM COCOA BUTTER FILTER OPERATOR ANTI HCV Routine 11/16/2018 3:04 PM CDT Need for hepatitis C screening test from Last 3 Months or Most Recently Relevant to Health Maintenance Results * (ABNORMAL) POCT Hemoglobin A1C Monitoring (03/25/2024 12:27 PM COCOA BUTTER FILTER OPERATOR) POC HEMOGLOBIN A1C 9.0(H) <6.0 % OF TOTAL HGB [facility] Comment: Any point of care results exhibiting inconsistency with the patient's clinical status should be repeated using a different testing method. Blood BLOOD SPECIMEN / Unknown 03/25/2024 12:27 PM COCOA BUTTER FILTER OPERATOR 03/25/2024 12:27 PM COCOA BUTTER FILTER OPERATOR Hilda Cheema MD CHEMISTRY Final R esult Performing Organization Address [facility] Co de Phone Number [facility] [address] [place] [address], [place] [phone] [facility] [address] [place] [address] * (ABNORMAL) PROTIME-INR [46612.0] - Standing Order (03/25/2024 12:26 PM COCOA BUTTER FILTER OPERATOR) Only the most recent of12 resultswithin the time period is included. INR 1.4(H) <1.3 03/25/2024 10:17 PM COCOA BUTTER FILTER OPERATOR [facility] PROTIME 16.4(H) 10.6 - 12.4 sec 03/25/2024 10:17 PM COCOA BUTTER FILTER OPERATOR [facility] Blood BLOOD SPECIMEN / Unknown [facility] / Unknown 03/25/2024 12:26 PM COCOA BUTTER FILTER OPERATOR 03/25/2024 12:26 PM COCOA BUTTER FILTER OPERATOR Narrative [facility] - 03/25/2024 10:17 PM [employer] FILTER OPERATOR Therapeutic Range 2.0-3.0 for most anticoagulated patients [...] HEMATOLOGY Final R esult Performing Organization Address [facility]/ZIP Co de Phone Number [facility] [address] [place] [address], [place] * XR HUMERUS MIN 2 VIEWS LEFT (03/24/2024 11:03 AM [employer] FILTER OPERATOR) Only the most recent of2 resultswithin the time period is included. Anatomical Region Laterality Modality HUMERI, HUMERUS L Computed Radio graphy Impressions 03/24/2024 3:17 PM [employer] FILTER OPERATOR As noted in findings above. Reading services were personally performed by Meliton Juarez MD, documentation performed by Karen Gregg, LAT, ATC based on my observation of services performed and provider statements to me. Meliton Juarez MD 03/24/2024 Narrative 03/24/2024 3:17 PM [employer]TER FILTER OPERATOR For Patients: As a result of the Cures Act, medical imaging exams and procedure reports are released immediately into your electronic medical record. You may view this report before your referring provider. If you have questions, please contact your health care provider. This radiology exam was performed at the [facility] Orthopedic Radiology Department in [place] and interpreted by Meliton Juarez MD. HISTORY: [...] INR 2.6(EXTERNA L) 0.0 - 1.2 U [facility] Blood BLOOD SPECIMEN / Unknown Sarahy Griffin TOOL AND DIE TECHNICIAN LABORATORY Final Resu lt U [facility] [address] [place] [address] * (ABNORMAL) GLUCOSE METER (02/23/2024 11:08 AM COCOA BUTTER FILTER OPERATOR) Only the most recent of46 resultswithin the time period is included. GLUCOSE METER 212(H) 65 - 100 mg/dL 02/23/2024 11:16 AM COCOA BUTTER FILTER OPERATOR [facility] Blood BLOOD SPECIMEN / Unknown 02/23/2024 11:08 AM COCOA BUTTER FILTER OPERATOR 02/23/2024 11:16 AM COCOA BUTTER FILTER OPERATOR Valeria Martinez MD CHEMISTRY Final Resu lt Performing Organization Address [facility]/ZIP Co de Phone Number [facility] [address] [place] [address], [place] * Magnesium AM (02/23/2024 7:42 AM COCOA BUTTER FILTER OPERATOR) Only the most recent of2 resultswithin the time period is included. MAGNESIUM 1.7 1.6 - 2.4 mg/dL 02/23/2024 9:10 AM COCOA BUTTER FILTER OPERATOR [facility] Blood BLOOD SPECIMEN / Unknown Venipuncture / Unknown 02/23/2024 7:42 AM COCOA BUTTER FILTER OPERATOR 02/23/2024 8:22 AM COCOA BUTTER FILTER OPERATOR Valeria Martinez MD CHEMISTRY Final Resu Performing Organization Address [facility] de Phone Number [facility] [address] [address], [place] * (ABNORMAL) Basic metabolic panel AM (02/23/2024 7:42 AM COCOA BUTTER FILTER OPERATOR) Only the most recent of3 resultswithin the [...] 8 - 23 mg/dL 02/23/2024 9:29 AM [facility] CREATININE 0.82 0.50 - 0.90 mg/dL 02/23/2024 9:29 AM [facility] BUN/CREAT RATIO 23(H) 10 - 20 9:29 AM [facility] eGFR 79(L) >90 mL/min/1. 73m2 02/23/2024 9:29 AM [facility] Comment:As of 2021, eG FR is calculated by the CKD-EPI creatinine equation without race adjustment. eGFR can be influenced by muscle mass, exercise, and diet. The reported eGFR is an estimation only and is only applicable if the renal function is stable. Blood BLOOD SPECIMEN / Unknown Venipuncture / Unknown 02/23/2024 7:42 AM COCOA BUTTER FILTER OPERATOR 02/23/2024 8:22 AM COCOA BUTTER FILTER OPERATOR us Valeria Martinez MD CHEMISTRY Final Resu lt [facility] [address] [place] [address], * (ABNORMAL) Hemoglobin AM (02/22/2024 10:26 AM COCOA BUTTER FILTER OPERATOR) Only the most recent of8 resultswithin the time period is included. HEMOGLOBIN 9.9(L) 12.0 - 16.0 g/dL 02/22/2024 10:55 AM [facility] MCV 90 80 - 100 fL 02/22/2024 10:55 AM [facility] Blood BLOOD SPECIMEN / Unknown Venipuncture / Unknown 02/22/2024 10:26 AM COCOA BUTTER FILTER OPERATOR 02/22/2024 10:46 AM COCOA BUTTER FILTER OPERATOR us Valeria Martinez MD HEMATOLOGY Final Resu lt Performing Organization Address City/[facility]/ZIP Co de Phone Number [facility] [address] [place] [address], * APTT (02/22/2024 10:26 AM COCOA BUTTER FILTER OPERATOR) Only the most recent of15 resultswithin the time period is included. APTT 34 25 - 36 sec 02/22/2024 11:06 AM COCOA BUTTER FILTER OPERATOR [facility] Blood BLOOD SPECIMEN / Unknown Venipuncture / Unknown 02/22/2024 10:26 AM COCOA BUTTER FILTER OPERATOR 02/22/2024 10:46 AM COCOA BUTTER FILTER OPERATOR Narrative [facility] - 02/22/2024 11:06 AM COCOA BUTTER FILTER OPERATOR Therapeutic Range: 59-89 seconds Valeria Martinez MD HEMATOLOGY Final Resu lt Performing Organization Address [facility] Co de Phone Number [facility] [address] [place] [address], * Electrolyte panel AM (02/22/2024 10:26 AM COCOA BUTTER FILTER OPERATOR) SODIUM 137 136 - 145 mmol/L 02/22/2024 11:11 AM COCOA BUTTER FILTER OPERATOR [facility] POTASSIUM 3.8 3.5 - 5.1 mmol/L 02/22/2024 11:11 AM COCOA BUTTER FILTER OPERATOR [facility] CHLORIDE 103 98 - 107 mmol/L 02/22/2024 11:11 AM COCOA BUTTER FILTER OPERATOR [facility] CO2,TOTAL 26 22 - 29 mmol/L 02/22/2024 11:11 AM COCOA BUTTER FILTER OPERATOR [facility] ANION GAP 8 5 - 18 02/22/2024 11:11 AM COCOA BUTTER FILTER OPERATOR [facility] Blood BLOOD SPECIMEN / Unknown Venipuncture / Unknown 02/22/2024 10:26 AM COCOA BUTTER FILTER OPERATOR 02/22/2024 10:45 AM COCOA BUTTER FILTER OPERATOR Valeria Martinez MD CHEMISTRY Final Resu lt Performing Organization Address City/[facility]/ZIP Co de Phone Number [facility] [address] [address], [place] * (ABNORMAL) PLATELET COUNT (02/21/2024 7:28 AM COCOA BUTTER FILTER OPERATOR) Only the most recent of6 resultswithin the time period is included. PLATELET COUNT 284 140 - 440 thou/cu mm 02/21/2024 7:46 AM COCOA BUTTER FILTER OPERATOR [facility] TRAL LABORATORY MPV 12.7(H) 6.5 - 11.0 fL 02/21/2024 7:46 AM COCOA BUTTER FILTER OPERATOR [facility] Blood BLOOD SPECIMEN / Unknown Venipuncture / Unknown 02/21/2024 7:28 AM COCOA BUTTER FILTER OPERATOR 02/21/2024 7:40 AM COCOA BUTTER FILTER OPERATOR Narrative [facility] - 02/21/2024 7:46 AM COCOA BUTTER FILTER OPERATOR Every morning while on IV heparin. Every morning while on IV heparin. Necessary every morning while on IV heparin. us Thomas Mckeon MD HEMATOLOGY Final Resu lt Performing Organization Address [facility] Co de Phone Number [facility] [address] [address], [place] * (ABNORMAL) HEMATOCRIT (02/21/2024 7:28 AM COCOA BUTTER FILTER OPERATOR) Only the most recent of6 resultswithin the time period is included. HEMATOCRIT 29.3(L) 33.0 - 51.0 % 02/21/2024 7:46 AM COCOA BUTTER FILTER OPERATOR [facility] Blood BLOOD SPECIMEN / Unknown Venipuncture / Unknown 02/21/2024 7:28 AM COCOA BUTTER FILTER OPERATOR 02/21/2024 7:40 AM COCOA BUTTER FILTER OPERATOR Narrative [facility] - 02/21/2024 7:46 AM COCOA BUTTER FILTER OPERATOR Every morning while on IV heparin. Every morning while on IV heparin. Necessary every morning while on IV heparin. us Thomas Mckeon MD HEMATOLOGY Final Resu lt Performing Organization Address City/[facility]/ZIP Co de Phone Number [facility] [address] [address], [place] * XR HUMERUS MIN 2 VIEWS LEFT PORTABLE (02/17/2024 6:09 PM COCOA BUTTER FILTER OPERATOR) Anatomical Region Laterality Modality HUMERI, HUMERUS L Digital Radiog erin Narrative 02/17/2024 6:06 PM COCOA BUTTER FILTER OPERATOR No radiology involvement necessary. See chart for further information. Meliton Juarez MD GENERAL IMAGING Final Result * XR C-ARM EQUAL OR GREATER 2 HR (02/17/2024 6:07 PM COCOA BUTTER FILTER OPERATOR) Anatomical Region Laterality Modality Other Narrative 02/17/2024 6:06 PM COCOA BUTTER FILTER OPERATOR 5 minutes 54 seconds fluoroscopy time was provided. See operative/procedure report for further information. Meliton Juarez MD FLUOROSCOPY Final Result * HCHG TUBE PR1, HCHG STYLET PR1 (02/17/2024 4:15 PM COCOA BUTTER FILTER OPERATOR) Narrative Cecilio Ray CRNA - 02/17/2024 4:15 PM COCOA BUTTER FILTER OPERATOR Cecilio Ray CRNA 02/17/2024 4:16 PM Procedure: [...] * TYPE & SCREEN (02/17/2024 3:22 PM COCOA BUTTER FILTER OPERATOR) Only the most recent of2 resultswithin the time period is included. ABORH A Rh Positive 02/17/2024 4:29 PM COCOA BUTTER FILTER OPERATOR [facility] LAB-CENTRAL LAB BLOOD BANK ANTIBODY SCREEN Negative Negative 02/17/2024 4:29 PM COCOA BUTTER FILTER OPERATOR [facility] SPECIMEN EXPIRATION DATE/TIME 02/20/24 23:59 02/17/2024 4:29 PM COCOA BUTTER FILTER OPERATOR [facility] Blood BLOOD SPECIMEN / Unknown Butterfly / Unknown 02/17/2024 3:22 PM COCOA BUTTER FILTER OPERATOR 02/17/2024 3:37 PM COCOA BUTTER FILTER OPERATOR Leann Bentley MD BLOOD BANK Final R esult [facility] B[facility] BANK [address] [place] [address], * ECHO TTE COMPLETE W CONTRAST (02/17/2024 9:37 AM COCOA BUTTER FILTER OPERATOR) AORTIC VALVE MEAN PG 15 mmHg EJECTION FRACTION 64 % PEAK TR VELOCITY 2.9 m/s LVEDD 4.8 cm Anatomical Region Laterality Modality Ultrasound 02/17/2024 8:08 AM COCOA BUTTER FILTER OPERATOR Narrative 02/17/2024 9:46 AM COCOA BUTTER FILTER OPERATOR ECHOCARDIOGRAM NAVA CHACON : 1955 68 years Study Date: 02/17/2024 8:08:48 AM Gender: F BP: 182/80 mmHg Height: 165.00 cm BSA: 2.28 m Weight: 127.00 kg Tech: YOLANDA Referring MD: GODFREY YIP Site: [facility] Reading Location: [facility] Patient Location: Inpatient. Procedure: 2D w/ Contrast, [...] Definity, lot #[id number], [facility]# [id number] was administered peripherally to enhance visualization of all left ventricular segments. . This study was interpreted by an [facility] accredited facility. Final Procedure Note García Peralta MD - 02/17/2024 ECHOCARDIOGRAM NAVA CHACON : 1955 68 years Study Date: 02/17/2024 8:08:48 AM Gender: F BP: 182/80 mmHg Height: 165.00 cm BSA: 2.28 m Weight: 127.00 kg Tech: YOLANDA Referring MD: GODFREY YIP Site: [facility] Reading Location: [facility] Patient Location: Inpatient. Procedure: 2D w/ Contrast, [...] Definity, lot #[id number], [facility]#[id number] was administered peripherally to enhance visualization of allleft ventricular segments. . This study was interpreted by an [facility] accredited facility. Final Godfrey Yip MD ECHO ORD Final Result * XR CHEST 1 VIEW PORTABLE (02/16/2024 8:10 AM COCOA BUTTER FILTER OPERATOR) Anatomical Region Laterality Modality HEART, THORAX, CHEST Digital Rad iography 02/16/2024 8:26 AM COCOA BUTTER FILTER OPERATOR Impressions 02/16/2024 8:26 AM COCOA BUTTER FILTER OPERATOR CHF with pulmonary interstitial edema and possible alveolar edema in the right base Dictated by Julio Romero MD @ 02/16/2024 8:26:14 AM (Electronically Signed) Narrative 02/16/2024 8:26 AM COCOA BUTTER FILTER OPERATOR For Patients: As a result of the [...] CBC no diff AM (02/16/2024 5:48 AM COCOA BUTTER FILTER OPERATOR) Only the most recent of4 resultswithin the time period is included. WHITE BLOOD COUNT 11.3(H) 4.5 - 11.0 thou/cu mm 02/16/2024 6:25 AM COCOA BUTTER FILTER OPERATOR [facility] TRAL LABORATORY RED BLOOD COUNT 3.70(L) 4.00 - 5.20 mil/cu mm 02/16/2024 6:25 AM COCOA BUTTER FILTER OPERATOR [facility] TRAL LABORATORY HEMOGLOBIN 10.6(L) 12.0 - 16.0 g/dL 02/16/2024 6:25 AM COCOA BUTTER FILTER OPERATOR [facility] TRAL LABORATORY HEMATOCRIT 32.7(L) 33.0 - 51.0 % 02/16/2024 6:25 AM COCOA BUTTER FILTER OPERATOR [facility] TRAL LABORATORY MCV 88 80 - 100 fL 02/16/2024 6:25 AM COCOA BUTTER FILTER OPERATOR [facility] TRAL LABORATORY MCH 28.6 26.0 - 34.0 pg 02/16/2024 6:25 AM COCOA BUTTER FILTER OPERATOR [facility] TRAL LABORATORY MCHC 32.4 32.0 - 36.0 g/dL 02/16/2024 6:25 AM [facility] TRAL LABORATORY RDW 14.5 11.5 - 15.5 % 02/16/2024 6:25 AM COCOA BUTTER FILTER OPERATOR [facility] TRAL LABORATORY PLATELET COUNT 313 140 - 440 thou/cu mm 02/16/2024 6:25 AM COCOA BUTTER FILTER OPERATOR [facility] TRAL LABORATORY MPV 13.4(H) 6.5 - 11.0 fL 02/16/2024 6:25 AM COCOA BUTTER FILTER OPERATOR [facility] TRAL LABORATORY NRBC 0.0 % 02/16/2024 6:25 AM COCOA BUTTER FILTER OPERATOR [facility] TRAL LABORATORY ABS NRBC 0.0 thou /cu mm 02/16/2024 6:25 AM COCOA BUTTER FILTER OPERATOR [facility] TRA LABORATORY Blood BLOOD SPECIMEN / Unknown Venipuncture / Unknown 02/16/2024 5:48 AM COCOA BUTTER FILTER OPERATOR 02/16/2024 6:08 AM COCOA BUTTER FILTER OPERATOR us Thomas Mckeon MD HEMATOLOGY Final Resu lt Performing Organization Address [facility] Co de Phone Number [facility] [address] [place] [address], [place] * Sodium AM (02/16/2024 5:48 AM COCOA BUTTER FILTER OPERATOR) Only the most recent of2 resultswithin the time period is included. SODIUM 136 136 - 145 mmol/L 02/16/2024 6:42 AM COCOA BUTTER FILTER OPERATOR [facility] Blood BLOOD SPECIMEN / Unknown Venipuncture / Unknown 02/16/2024 5:48 AM COCOA BUTTER FILTER OPERATOR 02/16/2024 6:08 AM COCOA BUTTER FILTER OPERATOR us Thomas Mckeon MD CHEMISTRY Final Resu lt Performing Organization Address City/[facility]/ZIP Co de Phone Number [facility] [address] [place] [address], [place] * Potassium AM (02/16/2024 5:48 AM COCOA BUTTER FILTER OPERATOR) Only the most recent of3 resultswithin the time period is included. POTASSIUM 4.7 3.5 - 5.1 mmol/L 02/16/2024 6:42 AM COCOA BUTTER FILTER OPERATOR [facility] Blood BLOOD SPECIMEN / Unknown Venipuncture / Unknown 02/16/2024 5:48 AM COCOA BUTTER FILTER OPERATOR 02/16/2024 6:08 AM COCOA BUTTER FILTER OPERATOR us Thomas Mckeon MD CHEMISTRY Final Resu Performing Organization Address [facility] Co de Phone Number [facility] [address] [address], [place] * (ABNORMAL) Creatinine AM (02/16/2024 5:48 AM COCOA BUTTER FILTER OPERATOR) Only the most recent of6 resultswithin the time period is included. eGFR 85(L) >90 mL/min/1.7 3m2 02/16/2024 6:42 AM COCOA BUTTER FILTER OPERATOR [facility] Comment:As of 2021, eG FR is calculated by the CKD-EPI creatinine equation without race adjustment. eGFR can be influenced by muscle mass, exercise, and diet. The reported eGFR is an estimation only and is only applicable if the renal function is stable. CREATININE 0.77 0.50 - 0.90 mg/dL 02/16/2024 6:42 AM COCOA BUTTER FILTER OPERATOR [facility] Blood BLOOD SPECIMEN / Unknown Venipuncture / Unknown 02/16/2024 5:48 AM COCOA BUTTER FILTER OPERATOR 02/16/2024 6:08 AM COCOA BUTTER FILTER OPERATOR us Thomas Mckeon MD CHEMISTRY Final Resu Performing Organization Address [facility] de Phone Number [facility] [address] [address], [place] * (ABNORMAL) PRO-BNP (02/16/2024 5:48 AM COCOA BUTTER FILTER OPERATOR) PRO-BNP 1,259(H) <125 pg/mL 02/16/2024 9:40 AM COCOA BUTTER FILTER OPERATOR [facility] Blood BLOOD SPECIMEN / Unknown Venipuncture / Unknown 02/16/2024 5:48 AM COCOA BUTTER FILTER OPERATOR 02/16/2024 6:08 AM COCOA BUTTER FILTER OPERATOR Narrative [facility] - 02/16/2024 9:40 AM COCOA BUTTER FILTER OPERATOR The following cut-points have been suggested for [...] SEND OUTS Final Result Performing Organization Address [facility] Co de Phone Number [facility] [address] [address], [place] * BUN (02/14/2024 10:52 AM COCOA BUTTER FILTER OPERATOR) BUN 20 8 - 23 mg/dL 02/14/2024 11:30 AM COCOA BUTTER FILTER OPERATOR [facility] H[facility] LAB[facility] Blood BLOOD SPECIMEN / Unknown Butterfly / Unknown 02/14/2024 10:52 AM COCOA BUTTER FILTER OPERATOR 02/14/2024 10:59 AM COCOA BUTTER FILTER OPERATOR us Thomas Mckeon MD CHEMISTRY Final Resu lt Performing Organization Address [facility] de Phone Number [facility] [address] [address], [place] * SCAN CORRESP-LABORATORY RESULTS (02/13/2024 10:56 AM COCOA BUTTER FILTER OPERATOR) Only the most recent of2 resultswithin the time period is included. Narrative 02/13/2024 10:56 AM COCOA BUTTER FILTER OPERATOR Ordered by an unspecified provider. us Other Clinical Staff OTHER Final Resul t * SCAN CORRESP-EKG RESULTS (02/13/2024 10:56 AM COCOA BUTTER FILTER OPERATOR) Narrative 02/13/2024 10:56 AM COCOA BUTTER FILTER OPERATOR Ordered by an unspecified provider. us Other Clinical Staff OTHER Final Resul t * SCAN CORRESP-IMAGING (02/13/2024 10:56 AM COCOA BUTTER FILTER OPERATOR) Anatomical Region Laterality Modality Other Narrative 02/13/2024 10:56 AM COCOA BUTTER FILTER OPERATOR Ordered by an unspecified provider. us Other Clinical Staff OTHER Final Resul t * SCAN-RADIOLOGY REPORT (02/12/2024 12:00 AM COCOA BUTTER FILTER OPERATOR) Only the most recent of3 resultswithin the time period is included. Anatomical Region Laterality Modality Other us Scanner OTHER Final Result * LIPID PANEL W REFLEX MEASURED LDL (11/11/2022 3:04 PM CDT) CHOLESTEROL,TOTAL 194 100 - 199 mg/dL 11/11/2022 11:58 PM CDT [facility] H5 LABORATORY-[facility] TRAL LABORATORY Comment: Cholesterol, Total Reference Ranges Desirable <200 mg/dL Borderline 200-239 mg/dL High >=240 mg/dL TRIGLYCERIDES 137 <150 mg/dL 11/11/2022 11:58 PM CDT [facility] H5 LABORATORY-[facility] TRAL LABORATORY HDL CHOLESTEROL 52 >40 mg/dL 11:58 PM CDT [facility] TRAL LABORATORY NON-HDL CHOLESTEROL 142 <145 mg/dl 11/11/2022 11:58 PM CDT [facility] CHOL/HDL RATIO 3.73 <4.50 11/11/2022 11:58 PM CDT [facility] LDL CHOLESTEROL 115 <=130 mg/dL 11/11/2022 11:58 PM CDT [facility] TRAL LABORATORY VLDL CHOLESTEROL 27 <=30 mg/dL 11/11/2022 11:58 PM CDT [facility] TR[facility] PROVIDER ORDERED STATUS RANDOM 11/11/2022 11:58 PM CDT [facility] Blood BLOOD SPECIMEN / Unknown Venipuncture / Unknown 11/11/2022 3:04 PM CDT 11/11/2022 3:06 PM CDT us Hilda Cheema MD CHEMISTRY Final R esult [facility] LABORATORY-CENTRAL LABORATORY [address] [place] [place] [address], * (ABNORMAL) XR DXA BONE DENSITY 2 SITES AXIAL [14596.1] (05/01/2022 1:35 PM CDT) Anatomical Region Laterality [...] recommended in 3-5 years. Ashley Landry PA-C [facility] 05/07/2022 Narrative 05/07/2022 12:55 PM CDT For Patients: Results are automatically released to your [facility] ([employer]) account once available, in compliance with federal regulations. This means that you may see your results before your provider has had a chance to review them. Please allow 2-3 business days for your provider to comment on the results. XR DXA Bone Mineral Density (BMD) EXAM LOCATION: [address] [address] PATIENT NAME: Nava Chacon DATE OF : [...] two scanners are made by the same winder operator. PROCEDURE: Dual-energy x-ray absorptiometry performed with routine [...] care provider. XR MAMMO DELFINA BILAT SCREEN [[id number]] CLINICAL HISTORY: This is an asymptomatic 66 [...] R esult * COLONOSCOPY (02/03/2020 11:11 AM COCOA BUTTER FILTER OPERATOR) 02/03/2020 11:1 1 AM COCOA BUTTER FILTER OPERATOR Narrative Transcriptions Ruben Ritter MD - 02/03/2020 [...] adequate candidate for conscious sedation. The [id number] was passed through the anus and advanced [...] reponse to care. [facility] and nursing notes for moderate sedation details. Total physician intraservice time was 22 minutes. Ruben Ritter MD 02/03/2020 12:00:28 PM This report has been signed electronically. Note Initiated On: 02/03/2020 11:11 AM Procedure Code(s): --- Professional --- 18896, Colonoscopy, flexible; with biopsy, single or multiple Diagnosis Code(s): --- Professional --- Z86.010, Personal history of colonicpolyps CPT copyright 2019 [employer]. All rights reserved. The codes documented in this report are preliminary and upon sash repairer reviewmay be revised to meet current compliance requirements. Scope In: 11:37:54 AM Scope Withdrawal Time 0 hours 8 minutes 13 seconds Scope Out: 11:56:43 AM us Ruben Ritter MD PROCEDURE ORD Final Res ult * ANTI HCV (11/16/2018 3:04 PM CDT) HEPATITIS C ANTIBODY Non-React иван Non-React иван 11/17/2018 2:58 AM CDT [facility] TRAL LABORATORY Comment:Antibodies to HCV no t detected; does not exclude the possibility of exposure to HCV. Blood BLOOD SPECIMEN / Unknown Venipuncture / Unknown 11/16/2018 3:04 PM CDT 11/16/2018 3:04 PM CDT us Roxanna Mcclure MD SEND OUTS Final R esult [facility] H5 LABORATORY-CENTRAL LABORATORY 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 06/20/2022 Healthcare Directive 05/11/2021 [...] Code Status Discussion: Reviewed Preferences Care Teams Maintenance [employer] Relationship Specialty Start Date End Date Hilda Cheema MD [address] [place] [address] PCP - General Family Practice 02/08/21 Melvi Maier MBBS [address] [place] [address] Endocrinology Endocrinology 10/17/20 Roxanna Leon, RN [address] [place] [address] Nurse Navigator Oncology 12/12/20 [facility] [address], [place] [address] 03/27/21 [facility] [address] [place] [id number] 05/25/21 Ariella Rowe, SIMIN [address] [place] [address] Occupational Therapy 02/24/24
[2024-04-14] MEDS: INSULIN REGULAR, HUMAN 100 UNIT/ML VIAL 10 UNIT SUBCUT (01:59)
[2024-04-14 02:18] LABS: Troponin, Point-of-Care* 0.07 ng/ml (0.01-0.04)
--- NOTE | 2024-04-14 03:55 | W.PM.TELEH&P ---
Telehealth- H&P: HPI History of Present Illness Date Seen: 04/14/24 Chief complaint: Weakness Narrative: Nava Borrego is seen as an Interactive Telehealth visit. Nava Borrego is a 68 year old Female who presents to hospital after a fall. Patient has been living at home after being recently discharged from acute rehab facility. In February of this year, she presented to the emergency room due to falls. During that time she was found to have gastroenteritis. She was seen by therapies and was actually discharged home on March 19, 2024. Prior to that she was at a TCU where she presented there due to surgical repair of the proximal left spiral humeral fracture. Today she presents to hospital after she had a fall. She was unable to be assisted by her . When she presented, she was noted to be covered in her own urine, her perineum was macerated skin, she was noted to be disheveled in appearance. Her blood sugars were greater than 400. Patient's INR was less than then therapeutic less than 1. During evaluation, the patient was unable to explain appropriately what was going on. She was often tangential in speech and did not ER physician did not feel comfortable discharging home. When I saw the patient, she was noted to be in no acute distress, however when she was confused and she was confabulating certain aspects of her story. I agreed with the ER physician about admitting the patient for her safety. Review of Systems Status of ROS: Reports: 10 or more systems reviewed and unremarkable except as noted in History and below and unobtainable due to mental status Const: Denies: fever or chills Cardio: Denies: chest pain, palpitations or shortness of breath with exertion Resp: Denies: shortness of breath GI: Denies: abdominal pain Integ/Breast: Reports: redness Neuro: Reports: numbness in extremities and weakness in extremities [facility] Medical History (Updated 04/14/24 @ 04:03 by Matthieu Moody MD) Physical debility ?R53.81 - Other malaise (ICD-10) Paroxysmal atrial fibrillation ?I48.0 - Paroxysmal atrial fibrillation (ICD-10) Insulin dependent diabetes mellitus Falls ?W19.XXXA - Unspecified fall, initial encounter (ICD-10) Anemia ?D64.9 - Anemia, unspecified (ICD-10) Cognitive impairment ?R41.89 - Other symptoms and signs involving cognitive functions and awareness (ICD-10) 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 (ICD-10) Gastroenteritis ?K52.9 - Noninfective gastroenteritis and colitis, unspecified (ICD-10) Gait instability ?R26.81 - Unsteadiness on feet (ICD-10) Ataxia ?R27.0 - Ataxia, unspecified (ICD-10) Chronic anticoagulation ?Z79.01 - senior living (current) use of anticoagulants (ICD-10) Poorly controlled diabetes mellitus ?E11.65 - Type 2 diabetes mellitus with hyperglycemia (ICD-10) Sprain of foot, left ?S93.602A - Unspecified sprain of left foot, initial encounter (ICD-10) Injury of knee, right ?S89.91XA - Unspecified injury of right lower leg, initial encounter (ICD-10) Frailty ?R54 - Age-related physical debility (ICD-10) Osteoarthritis of right knee ?M17.11 - Unilateral primary osteoarthritis, right knee (ICD-10) Medication noncompliance due to cognitive impairment ?R41.9 - Unspecified symptoms and signs involving cognitive functions and awareness (ICD-10) ?Z91.148 - Patient's other noncompliance with medication regimen for other reason (ICD-10) Heart failure ?I50.9 - Heart failure, unspecified (ICD-10) History of DVT (deep vein thrombosis) ?Z86.718 - Personal history of other venous thrombosis and embolism (ICD-10) Endocarditis ?I38 - Endocarditis, valve unspecified (ICD-10) Hyperlipidemia ?E78.5 - Hyperlipidemia, unspecified (ICD-10) Hypertension ?I10 - Essential (primary) hypertension (ICD-10) Diabetic polyneuropathy ?E11.42 - Type 2 diabetes mellitus with diabetic polyneuropathy (ICD-10) Diabetes ?E11.9 - Type 2 diabetes mellitus without complications (ICD-10) Anticoagulated with warfarin ?Z79.01 - senior living (current) use of anticoagulants (ICD-10) Pleural effusion on left ?J90 - Pleural effusion, not elsewhere classified (ICD-10) Multiple subsegmental pulmonary emboli without acute cor pulmonale ?I26.94 - Multiple subsegmental pulmonary emboli without acute cor pulmonale (ICD-10) History of Clostridioides difficile infection ?Z86.19 - Personal history of other infectious and parasitic diseases (ICD-10) Enteritis due to Clostridium difficile ?A04.72 - Enterocolitis due to Clostridium difficile, not specified as recurrent (ICD-10) Congestive heart failure ?I50.9 - Heart failure, unspecified (ICD-10) Cellulitis of right lower extremity ?L03.115 - Cellulitis of right lower limb (ICD-10) Acute kidney injury ?N17.9 - Acute kidney failure, unspecified (ICD-10) Surgical History 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) History of partial colectomy ?Z90.49 - Acquired absence of other specified parts of digestive tract (ICD-10) History of partial gastrectomy ?Z90.3 - Acquired absence of stomach [part of] (ICD-10) H/O splenectomy ?Z90.81 - Acquired absence of spleen (ICD-10) History of open heart surgery (05/17/21) ?Z98.890 - Other specified postprocedural states (ICD-10) History of appendectomy ?Z90.49 - Acquired absence of other specified parts of digestive tract (ICD-10) Family History Mother Colon cancer Diabetes Cirrhosis Brother Colon cancer Father Stroke High blood pressure Heart disease Social History Narrative: She lives at home with her daughter, Oscar, and her . She reports they live in a small home. She primarily walks around the house holding onto furniture. She has a cane that she occasionally uses, especially when she goes out. She [place] on [address]. Her daughter sets up her medications but notes that she does not know if her mom is reliably taking her medications. Daughter specifically notes that her mom has probably been forgetting her insulin at times and her warfarin has been missed at least a couple times in the past week or so. What is your current living situation?: I presently have a place to live Problems where you live: no known problems Problems where you live details: N/A In the past 12 months, utilities in danger of being shut off: no In past 12 months, lack of transportation kept you from medical appts, meetings, work, or getting things needed for daily living: no In the past 12 mos, have been you worried that your food would run out before you had money to buy more?: never true In the past 12 mos, the food you bought just didn't last and you didn't have money to buy more?: never true Are you following a diet prescribed by a doctor: Yes (diabetic, heart healthy) Highest level of school completed/degree received: Associate degree: occupational, technical, vocational program Smoking Status: Former smoker Do you use any of these nicotine containing products: None Second hand tobacco smoke exposure: No How often do you have a drink containing alcohol: never How often do you have six or more drinks on one occasion: Never AUDIT-C Alcohol total score: 0 Non-prescribed substance use: denies use Caffeine: Yes How often does anyone, including family, friends and others, physically hurt you: never How often does anyone, including family, friends and others, insult or talk down to you: never How often does anyone, including family, friends and others, threaten you with harm: never How often does anyone, including family, friends and others, scream or curse at you: never Gender Identity: female service: No Meds Home Medications and Allergies Home Medications ?Medication ?Instructions ?Recorded ?Confirmed ?Type amlodipine 10 mg tablet 10 mg PO DAILY 01/24/22 03/18/24 History furosemide 40 mg tablet 40 mg PO DAILY 01/24/22 03/18/24 History warfarin 2 mg tablet 4 mg PO QPM 01/24/22 03/18/24 History aspirin 81 mg tablet,delayed 81 mg PO DAILY 02/25/22 03/18/24 History release (Adult Aspirin Regimen) atorvastatin 40 mg tablet 40 mg PO DAILY 02/25/22 03/18/24 History coenzyme Q10 100 mg capsule 200 mg PO DAILY 06/17/22 03/18/24 History carvedilol 12.5 mg tablet 12.5 mg PO BID 02/12/24 03/18/24 History fluoxetine 10 mg capsule 10 mg PO DAILY 02/12/24 03/18/24 History insulin aspart U-100 100 unit/mL 2 - 12 unit subcut TIDWM 02/12/24 03/18/24 History (3 mL) subcutaneous pen (Novolog FlexPen U-100 Insulin aspart) insulin glargine 100 unit/mL (3 30 unit subcut HS 02/12/24 03/18/24 History mL) subcutaneous pen (Lantus Solostar U-100 Insulin) lisinopril 40 mg tablet 40 mg PO DAILY 02/12/24 03/18/24 History acetaminophen 500 mg tablet 1,000 mg PO Q6H PRN 03/18/24 03/18/24 History (Acetaminophen Pain Relief) lidocaine HCl 4 % topical cream 1 applic topical DAILY PRN 03/18/24 03/18/24 History (Aspercreme (lidocaine HCl)) oxycodone 5 mg tablet 5 mg PO Q4H PRN severe pain 03/18/24 03/18/24 History polyethylene glycol 3350 17 17 g PO DAILY PRN 03/18/24 03/18/24 History gram/dose oral powder (Miralax) sennosides 8.6 mg-docusate sodium 1 tab-cap PO BID 03/18/24 03/18/24 History 50 mg tablet (Colace 2-In-1) Allergies Allergy/AdvReac Type Severity Reaction Status Date / Time phytonadione (vitamin K1) Allergy Severe Anaphylaxis Verified 10/14/23 13:22 enoxaparin (From Lovenox) Allergy Diarrhea Verified 10/14/23 13:22 menaquinone-7 (vitamin K2) Allergy Anaphylaxis Verified 10/14/23 13:22 (vitamin K2) Exam Narrative Exam Narrative: Physical Exam GENERAL: ?vital signs reviewed, well developed and nourished, in no distress HEENT: pupils are equal round and reactive to light, extraocular movements are grossly within normal limits and oral mucosa is moist. NECK: Supple without lymphadenopathy or thyromegaly according to nursing staff examination observation HEART: Regular rate and rhythm without any rubs, murmurs, or gallops. LUNGS: Clear to auscultation bilaterally with good air movement throughout ABDOMEN: Observation from nurse assisted exam, abdomen appears soft, nontender, and nondistended with Positive bowel sounds noted. EXTREMITIES: Strength and sensation is observed to be grossly within normal limits in the upper and lower extremities.? No focal strength deficit is observed. SKIN:? noted to have chronic venous stasis. also noted to have significant intertrigo in folds, also perineum was markedly red Psych: patient alert and oriented x 2, patient confublation of stories and tangental conversation Const Vital Signs, click to edit/add: Vital Signs - 24 hr 04/14/24 00:15 04/14/24 01:19 04/14/24 01:32 Temperature 98.0 F Pulse Rate 83 Pulse Rate [Right Pulse Oximeter] 81 Respiratory Rate 18 16 Blood Pressure 176/88 H Blood Pressure [Right Arm] Blood Pressure [Right Upper Arm] 195/95 H Pulse Oximetry 98 98 98 Oxygen Delivery Method Room Air 04/14/24 02:26 04/14/24 03:01 Temperature 97.7 F Pulse Rate 94 Pulse Rate [Right Pulse Oximeter] 87 Respiratory Rate 16 18 Blood Pressure 185/114 H Blood Pressure [Right Arm] 148/101 H Blood Pressure [Right Upper Arm] Pulse Oximetry 92 96 Oxygen Delivery Method Room Air Hospitalist - H&P: Result Labs Labs: Short CBC 04/14/24 Range/Units 00:45 WBC 13.08 H (4.50-11.00) K/uL Hgb 11.6 L (12.0-16.0) gm/dL Hct 35.7 (33.0-51.0) % Plt Count 325 (140-440) K/uL BMP 04/14/24 00:45 Sodium 131 L Potassium 3.9 Chloride 97 Carbon Dioxide 25 BUN 12 Creatinine 0.7 Glucose 484 H* Calcium 8.9 Cardiac Enzymes 04/14/24 Range/Units 00:45 Total Creatine Kinase 90 (41-117) U/L Troponin I 0.07 H* (0.01-0.04) ng/mL Liver Function 04/14/24 Range/Units 00:45 Total Bilirubin 0.8 (0.1-1.5) mg/dL AST 19 (12-35) U/L ALT 18 (4-35) U/L Alkaline Phosphatase 160 H (40-150) U/L Albumin 3.3 (3.3-5.0) g/dL Urine 04/14/24 Range/Units 01:15 Urine Color Yellow (Yellow) Urine Appearance Cloudy A (Clear) Urine pH 7.0 (5.0-8.5) Ur Specific Hope 1.020 (1.000-1.030) Urine Protein 3+ A (Negative) Urine Glucose (UA) 2+ A (Negative) Assessment and Plan Assessment and plan (1) Acute hyperglycemia: Status: Acute (2) Candidal intertrigo: Status: Acute (3) Unable to care for self: Status: Acute (4) Weakness: Status: Acute (5) History of DVT (deep vein thrombosis): Status: Acute (6) Falls: Status: Acute (7) Cognitive impairment: Problem comment: - patient and daughter both endorse some memory loss recently; MOCA in June of 2022 - per Dr. Yadav, history, imaging, symptoms most c/w vascular dementia - PCP, Dr. Cheema, also aware. She has set up formal neuropsych testing for Amparo as an outpatient - higher level of care vs more help at home recommended upon discharge. Patient and daughter aware Status: Acute (8) Anemia: Problem comment: - chronic, normocytic, unclear etiology, receiving outpatient iron infusions with PCP - continue oral iron supplementation d/c - reassuring colonoscopy 01/[address] Ritter - baseline Hg 11, with Hg 10.3 on 03/18/24 Status: Acute (9) Insulin dependent diabetes mellitus: Problem comment: - A1C 9.3 on 02/12/24, continued home insulin during stay Status: Acute (10) Physical debility: Problem comment: - acute on chronic, seen by PT and OT, recommend home with HH Status: Acute (11) Paroxysmal atrial fibrillation: Problem comment: - thought to be cause of previous embolic stroke - chronically anticoagulated with warfarin with INR goal of 2-3 - carvedilol for rate control Status: Acute Plan 68-year-old female who presents to hospital with fall. Unfortunately she was unable to discharge home as she appears to be in a disheveled state. She is not safe to go home at this time. She has multiple medical issues including severe hypoglycemia, confusion lower extremity weakness. Acute hyperglycemia: Patient blood sugars are greater than 400. She states she does take her insulin but she was unable to tell me the exact regimen. Will restart her Lantus 30 units with NovoLog with meals. Will have a medium dose sliding scale. Tayla intertrigo: Patient has significant redness involving folds. Will provide nystatin powder and cream as needed. Weakness: I have consulted PT and OT. Atrial fibrillation: Currently rate controlled, continue beta-varsha, pharmacy to manage Coumadin. History of DVT: Pharmacy to dose Coumadin History of chronic anticoagulation: Patient supposed with Coumadin. INR subtherapeutic. I am unable to bridge her due to supposed allergy to enoxaparin or heparin. Apparently the patient states she coded when she recently had an. I am unable to find any history to corroborate this. However I am not willing to take the risk. Will hold off on any heparin or Lovenox at this time. I would defer to the primary team in the a.m. when they have access to [facility] records. Cognitive impairment: I reviewed previous records where neurology has thought that this patient may have developed vascular dementia. She has noted to be recommended to see a neuropsych evaluation but I do not see] here. She clearly does not have capacity to make medical decisions. I would recommend using a substitute decision-maker. She does not appear to be delirious or agitated. I will check a B12 and a B1 level. She is noted to be confabulating considerably I wonder if there is a thiamine deficiency. Due to the suspicion of thiamine deficiency I will administer IV thiamine. History of recurrent falls, PT OT on board. History of anemia: No indication for transfusions Telehealth Visit: Todays History and Physical is via interactive telehealth by Dr Matthieu Moody MD The Patient is located [facility]: Physician is located at [facility]. Nursing staff assisted in the patient's exam. The visit being done today meets criteria for a telehealth visit and the patient or patient's parent/guardian is aware the visit is a telehealth visit. Camera Start time 3 AM Camera End time 3:30 AM Telehealth: Statement Statement Telehealth Visit: Today's History and Physical is provided via interactive telehealth by Matthieu Moody MD.? Patient is located at [facility].? Provider is located at [facility].? Nursing staff assisted with the patient's exam. The visit being done today meets criteria for a telehealth visit and the patient or patient?s parent/guardian is aware the visit is a telehealth visit.
[2024-04-14 06:42] LABS: Vitamin B12* 319 pg/mL (243-894)
[2024-04-14] MEDS: ACETAMINOPHEN 325 MG TABLET 650 MG PO (06:43)
--- NOTE | 2024-04-14 07:08 | PC.NURSE ---
End of shift note [id number]: Pt noted to be alert & oriented to person and place though confused when asked about time of day, month of the year and date. Pt does have hx of cog impairment. She is requiring assist of 2 to BSC per ED report with Nina cath placed in ED. Tele in place with NSR with BBB noted. Pt noted to have excoriated, moist and reddened skin under bilateral breasts, héctor area and under abdominal/groin folds. Process Laboratory Specialist requested MD provide order for Nystatin Powder. Héctor area also noted to be edematous. PRN Tylenol given for L arm pain due to hx of old fracture. Alexander HAMILTON gave order to discontinue Lovenox due to allergy noted and is deferring anticoagulation to day hospitalist due to pt being poor historian about possible side effects of medications given in the past. Bed alarm on for safety and call light within reach.
[2024-04-14] MEDS: INSULIN ASPART 100 UNIT/ML SUBCUT ×4 (07:43→21:18)
[2024-04-14] MEDS: lisinopriL 20 MG TABLET 40 MG PO (08:42)
[2024-04-14] MEDS: carvediloL 6.25 MG TABLET 12.5 MG PO ×2 (08:42→21:16)
[2024-04-14] MEDS: ASPIRIN 81 MG TABLET EC PO (08:42)
[2024-04-14] MEDS: SENNOSIDES/DOCUSATE TABLET 1 TAB PO ×2 (08:42→21:16)
[2024-04-14] MEDS: FUROSEMIDE 40 MG TABLET PO (08:43)
[2024-04-14] MEDS: NYSTATIN POWDER 1 APPLIC TOPICAL ×2 (08:43→21:17)
[2024-04-14] MEDS: AMLODIPINE 10 MG TABLET PO (08:43)
[2024-04-14] MEDS: FLUOXETINE HCL 10 MG CAPSULE PO (08:43)
[2024-04-14] MEDS: THIAMINE 250 MG in 0.9 % SODIUM CHLORIDE 100 ml 100 ML 102.5 MG IVPB ×3 (08:43→21:16)
[2024-04-14] MEDS: ATORVASTATIN CALCIUM 40 MG TABLET PO (08:43)
[2024-04-14] MEDS: SODIUM CHLORIDE 0.9 % (FLUSH) 10 ML SYRINGE 5 ML IVF ×2 (08:44→19:33)
[2024-04-14 08:53] LABS: Troponin I* 0.08 ng/mL (0.01-0.04)
[2024-04-14] MEDS: ONDANSETRON 2 MG/ML inj 4 MG IVP ×3 (09:13→19:31)
--- NOTE | 2024-04-14 10:50 | PM.IMPN1 ---
Progress Note: A&P Assessment and plan (1) Acute hyperglycemia: Problem details: - likely 2/2 poor medication compliance - no evidence of acute infectious process at this time - last A1C 9.0 03/25/24 at [facility] - home insulin: Lantus 30U HS, Novolog 10U TID with meals (unclear compliance); will restart these doses + SSI and follow accuchecks Status: Acute (2) Elevated troponin: Problem details: - mild, asymptomatic on 04/14 - given fall and unclear history prior to admission, will follow to peak and obtain TTE to evaluate - last TTE 02/09 with results below: Final Impressions: 1. Technically limited exam. 2. Normal left ventricular size, normal wall thickness, normal global systolic function, calculated EF of 64 %. 3. The aortic valve is functioning 21 mm Inspiris bioprosthesis AVR, no stenosis and no regurgitation. There is trivial paravalvular regurgitation. The aortic valve peak velocity is 2.6 m/s, the peak gradient is 27 mmHg, and the mean gradient is 15 mmHg. 4. The mitral valve is sclerotic, mild mitral regurgitation. 5. Mild-moderate tricuspid regurgitation. 6. Elevated estimated pulmonary pressures by tricuspid regurgitation velocity and right atrial pressure (33 mmHg plus RAP). 7. Echo contrast was administered to enhance visualization of all left ventricular segments. Status: Acute (3) Paroxysmal atrial fibrillation: Problem details: - thought to be cause of previous embolic stroke - chronically anticoagulated with warfarin with INR goal of 2-3 (subtherapeutic INR 2/25, bridging with Lovenox) - continue home dose of carvedilol for rate control Status: Acute (4) Candidal intertrigo: Problem details: - also has oral thrush 04/14/24; treat with 3 days of Diflucan 200mg orally + topical clotrimazole and Nystatin swish and swallow Status: Acute (5) Unable to care for self: Problem details: - will likely require SNF placement when medically stable Status: Acute (6) Cognitive impairment: Problem details: - presented acutely confused 04/14/24, improved later in the day - memory loss over the past 1-2 years; MOCA / in June of 2022 - has seen Neuropsych (01/10) and stroke Neurology as an outpatient (query vascular dementia) - patient appears to have had more cognitive decline since last stay, appreciate assistance from OT/PT/SW Status: Acute (7) Anemia: Problem details: - chronic, normocytic, unclear etiology, has received outpatient iron infusions with PCP - continue oral iron supplementation d/c - reassuring colonoscopy 01/[address] Ritter - baseline Hg 11, with Hg 10.3 on 03/18/24 Status: Acute (8) Insulin dependent diabetes mellitus: Problem details: - A1C 9.0 on 03/25/24, continued home insulin during stay Status: Acute (9) Physical debility: Problem details: - acute on chronic, therapies following Status: Acute (10) CVA (cerebral vascular accident): Problem details: -2010, multiple, no physical deficits Status: Acute Plan - per above - therapies following, likely will require SNF placement when medically stable Subjective Date Seen: 04/14/24 Interval history: Amparo was admitted overnight for weakness; had slid out of bed at home and was on the ground for approximately 1 hour prior to EMS call/ER presentation. Was confused in ER, noted to have an erythematous/excoriated perineum and bar catheter placed in ED. BG 484, troponin 0.07, EKG baseline. Overnight, confusion improved (still not oriented to time/date). This morning, Amparo notes feeling weak, also has discomfort in perineum. No chest pain, no nausea. Troponin 0.08, no concerning findings on telemetry. This morning, Amparo notes perineal discomfort, no other concerns for hospitalist team. It is unclear how she is taking her Coumadin and insulin at home. Notes that she is unable to keep her perineum dry and clean at home by herself, doesn't feel comfortable asking her for help. She is receiving home health care. Exam Narrative: Exam Narrative: GEN: Alert and oriented to place and self HEENT: EOMIs bilaterally, no scleral icterus, tongue protrudes midline. Mild oral thrush noted CV: Irregular heart rhythm, rate 70s, early systolic murmur heard best at right sternal border R: LCTA bilaterally without concerning wheezing : Indwelling bar, + perineal erythema Skin: + intertrigo Neuro: Negative Romberg, no resting tremor, gait not observed Psych: Appears to have mild cognitive impairment, no agitation Const: Vital Signs, click to edit/add: Vital Signs - 24 hr 04/14/24 00:15 04/14/24 01:19 04/14/24 01:32 Temperature 98.0 F Pulse Rate 83 Pulse Rate [Right Pulse Oximeter] 81 Respiratory Rate 18 16 Blood Pressure 176/88 H Blood Pressure [Ri ght Arm] Blood Pressure [Ri ght Upper Arm] 195/95 H Pulse Oximetry 98 98 98 Oxygen Delivery Me thod Room Air 04/14/24 02:26 04/14/24 03:01 04/14/24 03:01 Temperature 97.7 F Pulse Rate 94 Pulse Rate [Right Pulse Oximeter] 87 Respiratory Rate 16 18 18 Blood Pressure 185/114 H Blood Pressure [Ri ght Arm] 148/101 H Blood Pressure [Ri ght Upper Arm] Pulse Oximetry 92 96 96 Oxygen Delivery Me thod Room Air Room Air 04/14/24 03:58 04/14/24 07:29 04/14/24 07:55 Temperature Pulse Rate 80 77 Pulse Rate [Right Pulse Oximeter] Respiratory Rate Blood Pressure Blood Pressure [Ri ght Arm] Blood Pressure [Ri ght Upper Arm] Pulse Oximetry 96 Oxygen Delivery Me thod Labs Labs: Laboratory Results - last 24 hr 04/14/24 04/14/24 04/14/24 00:35 00:45 01:00 WBC 13.08 H RBC 4.04 Hgb 11.6 L Hct 35.7 MCV 88 MCH 29 MCHC 33 RDW Coeff of Aditi 15.2 Plt Count 325 Neut % (Auto) 75.4 H Lymph % (Auto) 12.5 L [place] % (Auto) 9.2 Eos % (Auto) 1.9 Baso % (Auto) 0.4 Neut # (Auto) 9.90 H Lymph # (Auto) 1.60 [place] # (Auto) 1.20 H Eos # (Auto) 0.20 Baso # (Auto) 0.10 Abs Immat Gran (auto) 0.10 Imm/Tot Granulo (auto) 0.6 INR 0.98 Sodium 131 L Potassium 3.9 Chloride 97 Carbon Dioxide 25 Anion Gap 9 BUN 12 Creatinine 0.7 Estimated Creat Clear 49.12 Estimated GFR 95 Glucose 484 H* Calcium 8.9 Total Bilirubin 0.8 AST 19 ALT 18 Alkaline Phosphatase 160 H Total Creatine Kinase 90 Troponin I 0.07 H* NT-Pro-B Natriuret Pep 1510 Total Protein 5.8 L Albumin 3.3 Vitamin B12 Urine Color Urine Appearance Urine pH Ur Specific [place] Urine Protein Urine Glucose (UA) Urine Ketones Urine Blood Urine Nitrite Urine Bilirubin Urine Urobilinogen Ur Leukocyte Esterase Urine RBC Urine WBC Ur Squamous Epith Cells Amorphous Sediment Urine Bacteria SARS-CoV-2 (PCR) Negative SARS-CoV-2 Influenza Type A (PCR) Negative PCR FLU A Influenza Type B (PCR) Negative PCR FLU B RSV (PCR) Negative PCR RSV Lab Acknowledgement POC Troponin I 0.07 H 04/14/24 04/14/24 04/14/24 01:14 01:15 02:00 WBC RBC Hgb Hct MCV MCH MCHC RDW Coeff of Aditi Plt Count Neut % (Auto) Lymph % (Auto) [place] % (Auto) Eos % (Auto) Baso % (Auto) Neut # (Auto) Lymph # (Auto) [place] # (Auto) Eos # (Auto) Baso # (Auto) Abs Immat Gran (auto) Imm/Tot Granulo (auto) INR Sodium Potassium Chloride Carbon Dioxide Anion Gap BUN Creatinine Estimated Creat Clear Estimated GFR Glucose Calcium Total Bilirubin AST ALT Alkaline Phosphatase Total Creatine Kinase Troponin I NT-Pro-B Natriuret Pep Total Protein Albumin Vitamin B12 Urine Color Yellow Urine Appearance Cloudy A Urine pH 7.0 Ur Specific [place] 1.020 Urine Protein 3+ A Urine Glucose (UA) 2+ A Urine Ketones 2+ A Urine Blood 2+ A Urine Nitrite Negative Urine Bilirubin Negative Urine Urobilinogen 0.2 Ur Leukocyte Esterase Negative Urine RBC 2-5 A Urine WBC 5-10 A Ur Squamous Epith Cells Few Amorphous Sediment Few A Urine Bacteria Moderate A SARS-CoV-2 (PCR) Influenza Type A (PCR) Influenza Type B (PCR) RSV (PCR) Lab Acknowledgement Test Added POC Troponin I 0.07 H 04/14/24 04/14/24 05:56 08:26 WBC RBC Hgb Hct MCV MCH MCHC RDW Coeff of Aditi Plt Count Neut % (Auto) Lymph % (Auto) [place] % (Auto) Eos % (Auto) Baso % (Auto) Neut # (Auto) Lymph # (Auto) [place] # (Auto) Eos # (Auto) Baso # (Auto) Abs Immat Gran (auto) Imm/Tot Granulo (auto) INR Sodium Potassium Chloride Carbon Dioxide Anion Gap BUN Creatinine Estimated Creat Clear Estimated GFR Glucose Calcium Total Bilirubin AST ALT Alkaline Phosphatase Total Creatine Kinase Troponin I 0.08 H* NT-Pro-B Natriuret Pep Total Protein Albumin Vitamin B12 319 Urine Color Urine Appearance Urine pH Ur Specific [place] Urine Protein Urine Glucose (UA) Urine Ketones Urine Blood Urine Nitrite Urine Bilirubin Urine Urobilinogen Ur Leukocyte Esterase Urine RBC Urine WBC Ur Squamous Epith Cells Amorphous Sediment Urine Bacteria SARS-CoV-2 (PCR) Influenza Type A (PCR) Influenza Type B (PCR) RSV (PCR) Lab Acknowledgement Test Added POC Troponin I
[2024-04-14] MEDS: ENOXAPARIN 80 MG/0.8 ML INJ 90 MG SUBCUT (11:18)
[2024-04-14] MEDS: FLUCONAZOLE 100 MG TABLET 200 MG PO (11:18)
[2024-04-14] MEDS: INSULIN ASPART 100 UNIT/ML 10 UNIT SUBCUT ×2 (11:45→17:26)
[2024-04-14] MEDS: NYSTATIN 500,000 UNIT/5 ML 500000 UNIT SWISH/SWAL ×3 (13:39→21:16)
--- NOTE | 2024-04-14 13:54 | REH.PT ---
PT eval and treat order receieved, thank you. Patient with change in acute medical status and not seen for eval this pm. Will recheck status tomorrow.
[2024-04-14] MEDS: CLOTRIMAZOLE (VAG) cream 1 APPLIC VAGINAL (15:00)
--- NOTE | 2024-04-14 15:27 | PC.NURSE ---
At approximately 1340 pt. was discovered to be speaking non-sensically and was incontinent of a copious amount of bowel. Pt. taken to CT and seen by Dr. White and tele-neuro upon return.
--- NOTE | 2024-04-14 16:46 | W.PM.CROSSCO ---
Subjective Subjective Time Seen by Provider: 15:00 Date Seen: 04/14/24 Interval history: At approximately 1:45 p.m. today patient was seen by her nurse to be normal, at baseline. About 5 minutes later she had onset of acute confusion and difficulty with speaking. She was described as having word salad. She had altered mental status in that she did seem to be responding appropriately to environment or able to communicate with nursing and physician providers were seeing her. She had spontaneous incontinence of bowel and bladder. Initial evaluation showed no acute motor weakness. Just the confusion and difficulty speaking. A stroke code was called. Emergent CT and CTA were obtained with a brief delayed due to loss of IV access. These did not show any evidence of large vessel occlusion or stroke. Stroke Neurology consulted and did not identify any obvious stroke findings on evaluation except for some confusion. I evaluated her shortly after the stroke neurologist did. She appeared to be back to her normal baseline mental status and verbal communication was also back to normal. She was feeling nausea and had significant emesis of her last meal while I was talking with her. Once this was done she was feeling fine without further nausea. She had no abdominal pain, chest pain, shortness of breath, fever, cough. She was admitted for weakness, confusion, a fall and inability to care for herself at home. She has been incontinent of bowel and bladder with ongoing problems with diarrhea. She was hospitalized at the end of February with gastroenteritis and weakness. She was discharged to TCU for rehab. She has subsequently returned home from the TCU but has been failing at home. Her main complaint when I saw her was pain in the vaginal area which has been present for some time. She does not recall the events that occurred between 145 and 2:00 p.m. today. Objective Objective Data Details: She is alert and appears in no distress. She gives her own history. Her speech is fluent. Her mental status and ability to communicate appears to be at baseline. Head is without trauma. There is no facial asymmetry. Sensation is intact. Extraocular movements are full. Visual solorio are intact. Pupils are equal round reactive to light. Oropharynx with tongue midline. Dry mucous membranes. Neck is supple without mass or adenopathy. Respirations are clear to auscultation. Cardiovascular: S1, S2, 2/6 systolic murmur, regular rate and rhythm. Abdomen is soft. Bowel sounds are very active. Abdomen is without tenderness or mass. External genitalia notable for fairly severe erythema and whitish discharge in the vaginal introitus. Lower extremities with some edema, chronic venous stasis skin changes. Fairly good capillary refill. Blood sugar was 141 at the time I saw her Assessment and Plan Assessment and plan (1) Spell of altered consciousness: Problem comment: Patient had a spell lasting less than an hour with apparent confusion and inability to communicate verbally. Incontinence of bowel and bladder which is possibly chronic. Stroke code called. CT head and CTA unremarkable. Return to baseline mental status within an hour. Status: Acute (2) Bladder incontinence: Problem comment: Chronic Status: Acute (3) Bowel incontinence: Problem comment: Acute episode occurring with altered mental status but possibly chronic with diarrhea Status: Acute (4) Vomiting: Problem comment: One episode of vomiting after a spell of altered consciousness. Obtain abdominal CT if recurrent vomiting or abdominal pain Status: Acute (5) Noncompliance with medication regimen: Problem comment: Patient has been prescribed warfarin for history of stroke with AFib. INR was 0.98 on admission indicating noncompliance with warfarin therapy. I discussed with the patient as switched to apixaban as a better alternative. Status: Acute (6) Chronic anticoagulation: Problem comment: - for history of embolic stroke due to atrial fibrillation. Recommend switched to apixaban from warfarin for a safer and easier to use anticoagulation. Status: Acute Plan Patient with acute altered mental status as outlined above. Cause for this is uncertain. With significant associated GI symptoms this could have been related to vasovagal/neurocardiogenic syncope. No obvious seizure activity. No evidence of acute stroke. Continue to monitor closely for recurrent spells, ongoing concern about gastrointestinal illness or other illness causing her altered mental status and gastrointestinal symptoms. Total Time Spent Total Time Spent: Total time spent today is 60 minutes in critical care evaluation and management
[2024-04-14] MEDS: LACTATED RINGERS 1000 ML 1,000 ML 125 ML IV (18:16)
[2024-04-14 18:17] LABS: Lactate* 1.1 mmol/L (0.5-1.9)
[2024-04-14 18:42] LABS: D Dimer Quantitative* 2.31 ug/ml (0.00-0.50)
[2024-04-14 18:55] LABS: Troponin I* 0.06 ng/mL (0.01-0.04)
[2024-04-14] MEDS: APIXABAN 5 MG TABLET PO (21:15)
[2024-04-14] MEDS: OXYCODONE 5 MG TABLET PO (21:16)
[2024-04-14] MEDS: NYSTATIN CREAM 30 GM 1 APPLIC TOPICAL (21:17)
[2024-04-14] MEDS: INSULIN GLARGINE,HUM.REC.ANLOG 100 UNIT/ML INSULN.PEN 30 UNIT SUBCUT (21:19)
[2024-04-14 22:08] LABS: C.Difficile Negative (Negative); CDIFFEPI 027 PRESUMPTIVE NEGATIVE (Negative)
[2024-04-15] VITALS (9 sets, daily range): BP systolic 147–173; BP diastolic 68–79; PULSE 60–72; RESP 16–20; TEMP 36.6–37.2; O2SAT 95–98
[2024-04-15] MEDS: LACTATED RINGERS 1000 ML 1,000 ML 125 ML IV (03:39)
[2024-04-15] MEDS: OXYCODONE 5 MG TABLET PO ×2 (05:16→20:20)
[2024-04-15] MEDS: ONDANSETRON 2 MG/ML inj 4 MG IVP ×2 (05:18→20:21)
[2024-04-15 06:40] LABS: Basophils Percent Auto 0.4 % (0.0-3.0); Eosinophils Percent Auto 2.7 % (0.0-7.0); Hematocrit 33.2 % (33.0-51.0); Hemoglobin* 10.5 gm/dL (12.0-16.0); Immature Granulocytes Pct Auto 0.2 %; Lymphocytes Percent Auto 17.2 % (20-44); Mean Corpuscular HGB Conc 32 gm/dL (32-36); Mean Corpuscular Hemoglobin 28 pg (26-34); Mean Corpuscular Volume 89 fL (80-100); Monocytes Percent Auto 9.2 % (0.0-11.0); Neutrophils Percent Auto 70.3 % (42.0-72.0); Platelet Count* 297 K/uL (140-440); RDW Coefficient of Variation % 15.6 % (11.5-15.5); Red Blood Count 3.72 m/uL (4.00-5.20); White Blood Count* 12.58 K/uL (4.50-11.00)
[2024-04-15 06:48] LABS: Slide Review Reflex No
--- NOTE | 2024-04-15 06:57 | PC.NURSE ---
End of shift summary: Pt has been alert but intermittently confused on date, time & situation. She?s been oriented to self and place consistently. She needs directions repeated (like what medication we?re giving her) and needs multiple verbal cues (to hold her arm still while measuring her BP, what button to push for help on her call light). VSS and afebrile overnight. She required 0.5L to 1L oxygen via NC while she was asleep to maintain > 90%. She has been Ax2 with gait belt & walker d/t confusion & weakness. Ongoing nausea overnight with x2 episodes of vomiting in the evening- emesis was very small amounts and was more thick spit than anything, no bile. Nina catheter intact, draining clear yellow urine. Total output: 550 mL. She had chest CTA done which showed several enlarged lymph nodes, metastatic disease cannot be ruled out. Abd US d/t vomiting which was negative for any abnormalities. PIV in left AC infusing LR @ 125 mL/hr. TELE read SR w/ BBB and prolonged QT. Pt had an incontinent loose stool coming back from CT; C. Diff sent and came back negative. Patient?s main c/o pain is in her groin where her skin is reddened and excoriated, ?feels like her skin is being ripped off?. PRN oxycodone given last @ 0515 along with PRN Zofran d/t sudden onset of nausea but no emesis. Pt gets very emotional when it comes to pain & seems to have anxiety over it. ECHO ordered for 04/15.?
[2024-04-15 07:21] LABS: Chloride* 99 mmol/L (96-114); Potassium* 3.4 mmol/L (3.6-5.1); Sodium* 132 mmol/L (135-149)
[2024-04-15 07:24] LABS: Anion Gap 5 mEq/L (7-15); Blood Urea Nitrogen* 12 mg/dL (7-30); Calcium* 8.3 mg/dL (8.4-10.6); Carbon Dioxide* 28 mmol/L (20-32); Creatinine* 1.2 mg/dL (0.5-1.5); Est. Creatinine Clearance* 40.94; Estimated Glomerular Filt Rate 50 ml/min; Glucose* 191 mg/dL (60-115)
[2024-04-15 07:28] LABS: Troponin I* 0.07 ng/mL (0.01-0.04)
--- NOTE | 2024-04-15 09:23 | PM.IMPN1 ---
Progress Note: A&P Assessment and plan (1) Spell of altered consciousness: Problem details: - on 04/14, patient had a spell lasting less than an hour with apparent confusion and inability to communicate verbally, stroke code called - reassuring CT/CTA head - MRI 04/15 with results below - reviewed with Dr. Kirkland of Stroke Neurology who felt that these findings were too small to cause the symptoms 04/14 or to require significant intervention - therapies following, SNF recommended Impression: 1. Small acute ischemic infarcts in the right thalamus and left cerebellum. Subacute ischemic infarct in the right parasagittal parietal cortex. 2. Chronic right cerebellar infarcts. Chronic ischemic infarct in the left occipital lobe and right frontal lobe periventricular white matter. 3. Disproportionate enlargement of the ventricles with respect to sulci raises the possibility of normal pressure hydrocephalus. 4. Moderate supratentorial and infratentorial chronic small-vessel ischemic changes. Status: Acute (2) CVA (cerebral vascular accident): Problem details: - 2010, multiple - MRI 04/15/24 reveals the following: - therapies following Impression: 1. Small acute ischemic infarcts in the right thalamus and left cerebellum. Subacute ischemic infarct in the right parasagittal parietal cortex. 2. Chronic right cerebellar infarcts. Chronic ischemic infarct in the left occipital lobe and right frontal lobe periventricular white matter. 3. Disproportionate enlargement of the ventricles with respect to sulci raises the possibility of normal pressure hydrocephalus. 4. Moderate supratentorial and infratentorial chronic small-vessel ischemic changes. Status: Acute (3) Cognitive impairment: Problem details: - presented acutely confused 04/14/24 - memory loss over the past 1-2 years; MOCA in June of 2022 - has seen Neuropsych (01/10) and stroke Neurology as an outpatient (query vascular dementia) - patient appears to have had more cognitive decline since last stay, appreciate assistance from OT/PT/SW Status: Acute (4) Candidal intertrigo: Problem details: - also has oral thrush 04/14/24; treat with 3 days of Diflucan 200mg orally + topical clotrimazole and Nystatin swish and swallow Status: Acute (5) Insulin dependent diabetes mellitus: Problem details: - A1C 9.0 on 03/25/24, continuing home insulin during stay + SSI Status: Acute (6) Elevated troponin: Problem details: - mild, no chest pain (+ nausea) - peak at 0.08, repeat TTE has been ordered for 04/15 given concern for CVA - last TTE 01/2024 with results below: Final Impressions: 1. Technically limited exam. 2. Normal left ventricular size, normal wall thickness, normal global systolic function, calculated EF of 64 %. 3. The aortic valve is functioning 21 mm Inspiris bioprosthesis AVR, no stenosis and no regurgitation. There is trivial paravalvular regurgitation. The aortic valve peak velocity is 2.6 m/s, the peak gradient is 27 mmHg, and the mean gradient is 15 mmHg. 4. The mitral valve is sclerotic, mild mitral regurgitation. 5. Mild-moderate tricuspid regurgitation. 6. Elevated estimated pulmonary pressures by tricuspid regurgitation velocity and right atrial pressure (33 mmHg plus RAP). 7. Echo contrast was administered to enhance visualization of all left ventricular segments. Status: Acute (7) Paroxysmal atrial fibrillation: Problem details: - thought to be cause of previous embolic stroke - chronically anticoagulated with warfarin with INR goal of 2-3 (subtherapeutic INR 04/13, bridging with Lovenox) - > transitioned to Apixaban on 04/14 - continue home dose of carvedilol for rate control Status: Acute (8) Chronic anticoagulation: Problem details: - for history of embolic stroke due to atrial fibrillation, also remote h/o DVT - transitioned to Apixaban from warfarin 04/14/24 Status: Acute (9) Noncompliance with medication regimen: Problem details: - noted to have subtherapeutic INR and hyperglycemia on admission, concern for not managing home medications well - transitioned to Apixaban 04/14/24 - will likely require [facility] SNF placement upon d/c Status: Acute (10) Anemia: Problem details: - chronic, normocytic, unclear etiology, has received outpatient iron infusions with PCP - continue oral iron supplementation d/c - reassuring colonoscopy 01/[address] Ritter - baseline Hg 11, with Hg 10.5 on 04/15/24 Status: Acute (11) Vomiting: Problem details: - noted after episode of AMS 04/14, reassuring Ct A/P - symptoms resolved 04/15, tolerating diet Status: Acute (12) Diarrhea: Problem details: - noted during OT 04/15/24 - adding probiotics, will check C-Diff Status: Acute Plan - per above, SNF stay recommended upon d/c, appreciate input from PT/OT/SW - daughter Oscar updated by phone, questions answered Subjective Date Seen: 04/15/24 Interval history: Amparo was admitted to the hospital early on 04/14 for confusion in the setting of hyperglycemia. Was improving and close to baseline until yesterday afternoon, at which time she had acute onset of confusion and expressive aphasia, AMS. Stroke code was called, imaging reassuring. BG 141. Stroke Neurology consulted; felt that no acute intervention necessary, recommend TTE and MRI. MRI obtained 04/15 with results below. Stroke Neurology following, reviewed results with Dr. Kirkland on 04/15 who feels that these areas of ischemia below are too small to have caused the deficits observed 04/14/24. He did not recommend any further intervention or treatment besides the transition from Warfarin to Apixaban. Impression : 1. Small acute ischemic infarcts in the right thalamus and left cerebellum. Subacute ischemic infarct in the right parasagittal parietal cortex. 2. Chronic right cerebellar infarcts. Chronic ischemic infarct in the left occipital lobe and right frontal lobe periventricular white matter. 3. Disproportionate enlargement of the ventricles with respect to sulci raises the possibility of normal pressure hydrocephalus. 4. Moderate supratentorial and infratentorial chronic small-vessel ischemic changes. Amparo continues to have perineal discomfort, no other concerns for hospitalist team this morning. + diarrhea during OT evaluation today. Exam Narrative: Exam Narrative: GEN: Alert and sitting comfortably in bedside chair HEENT: EOMIs bilaterally, no scleral icterus CV: Irregularly irregular R: LCTA bilaterally without concerning wheezing Neuro: No focal deficits while seated in chair, gait not observed Psych: Appears to have short term memory deficits/confusion, no agitation. Oriented to self and place Const: Vital Signs, click to edit/add: Vital Signs - 24 hr 04/14/24 11:15 04/14/24 13:51 04/14/24 14:42 Temperature 98.7 F Pulse Rate Pulse Rate [Right Pulse Oximeter] 74 75 73 Respiratory Rate 18 18 20 Blood Pressure [Le ft Arm] 131/90 H 131/71 166/62 H Blood Pressure [Ri ght Arm] Pulse Oximetry 95 92 93 Oxygen Delivery Me thod Room Air Room Air Room Air Oxygen Flow Rate 04/14/24 15:00 04/14/24 15:00 04/14/24 15:00 Temperature Pulse Rate 77 Pulse Rate [Right Pulse Oximeter] 82 Respiratory Rate 18 Blood Pressure [Le ft Arm] Blood Pressure [Ri ght Arm] Pulse Oximetry 98 Oxygen Delivery Me thod Oxygen Flow Rate 04/14/24 19:20 04/14/24 23:00 04/14/24 23:00 Temperature 98.4 F Pulse Rate 68 Pulse Rate [Right Pulse Oximeter] 81 Respiratory Rate 18 Blood Pressure [Le ft Arm] Blood Pressure [Ri ght Arm] 164/109 H Pulse Oximetry 99 77 L Oxygen Delivery Me thod Room Air Oxygen Flow Rate 04/14/24 23:00 04/14/24 23:00 04/14/24 23:30 Temperature 97.6 F Pulse Rate Pulse Rate [Right Pulse Oximeter] 71 71 Respiratory Rate 18 18 Blood Pressure [Le ft Arm] Blood Pressure [Ri ght Arm] 171/73 H Pulse Oximetry 77 L 98 Oxygen Delivery Me thod Room Air Nasal Cannula Oxygen Flow Rate 2 04/15/24 00:08 04/15/24 03:00 04/15/24 07:00 Temperature 98.3 F Pulse Rate 60 Pulse Rate [Right Pulse Oximeter] 69 Respiratory Rate 18 Blood Pressure [Le ft Arm] Blood Pressure [Ri ght Arm] 156/72 H Pulse Oximetry 97 97 Oxygen Delivery Me thod Nasal Cannula Nasal Cannula Oxygen Flow Rate 1 0.5 Labs Labs: Laboratory Results - last 24 hr 04/14/24 04/14/24 04/14/24 00:45 17:47 18:13 WBC RBC Hgb Hct MCV MCH MCHC RDW Coeff of Aditi Plt Count Neut % (Auto) Lymph % (Auto) [place] % (Auto) Eos % (Auto) Baso % (Auto) Neut # (Auto) Lymph # (Auto) [place] # (Auto) Eos # (Auto) Baso # (Auto) Abs Immat Gran (auto) Imm/Tot Granulo (auto) D-Dimer Quant (PE/DVT) Cancelled 2.31 H Sodium Potassium Chloride Carbon Dioxide Anion Gap BUN Creatinine Estimated Creat Clear Estimated GFR Glucose Lactate 1.1 Calcium Troponin I 0.06 H* Stl C. diff Tox B Gene Stl C. diff 027-NAP1-BI Lab Acknowledgement Test Added 04/14/24 04/15/24 21:05 06:03 WBC 12.58 H RBC 3.72 L Hgb 10.5 L Hct 33.2 MCV 89 MCH 28 MCHC 32 RDW Coeff of Aditi 15.6 H Plt Count 297 Neut % (Auto) 70.3 Lymph % (Auto) 17.2 L [place] % (Auto) 9.2 Eos % (Auto) 2.7 Baso % (Auto) 0.4 Neut # (Auto) 8.80 H Lymph # (Auto) 2.20 [place] # (Auto) 1.20 H Eos # (Auto) 0.30 Baso # (Auto) 0.10 Abs Immat Gran (auto) 0.00 Imm/Tot Granulo (auto) 0.2 D-Dimer Quant (PE/DVT) Sodium 132 L Potassium 3.4 L Chloride 99 Carbon Dioxide 28 Anion Gap 5 L BUN 12 Creatinine 1.2 Estimated Creat Clear 40.94 Estimated GFR 50 Glucose 191 H Lactate Calcium 8.3 L Troponin I 0.07 H* Stl C. diff Tox B Gene Negative Stl C. diff [id number]-NAP1-BI PRESUMPTIVE NEGATIVE Lab Acknowledgement
[2024-04-15] MEDS: FLUOXETINE HCL 10 MG CAPSULE PO (09:53)
[2024-04-15] MEDS: APIXABAN 5 MG TABLET PO ×2 (09:53→21:30)
[2024-04-15] MEDS: FUROSEMIDE 40 MG TABLET PO (09:54)
[2024-04-15] MEDS: carvediloL 6.25 MG TABLET 12.5 MG PO ×2 (09:54→21:30)
[2024-04-15] MEDS: AMLODIPINE 10 MG TABLET PO (09:55)
[2024-04-15] MEDS: ATORVASTATIN CALCIUM 40 MG TABLET PO (09:55)
[2024-04-15] MEDS: ASPIRIN 81 MG TABLET EC PO (09:56)
[2024-04-15] MEDS: INSULIN ASPART 100 UNIT/ML SUBCUT ×2 (09:56→21:34)
[2024-04-15] MEDS: FLUCONAZOLE 100 MG TABLET 200 MG PO (09:56)
[2024-04-15] MEDS: lisinopriL 20 MG TABLET 40 MG PO (09:56)
[2024-04-15] MEDS: NYSTATIN 500,000 UNIT/5 ML 500000 UNIT SWISH/SWAL ×4 (09:58→21:30)
[2024-04-15] MEDS: INSULIN ASPART 100 UNIT/ML 10 UNIT SUBCUT (09:58)
[2024-04-15] MEDS: SODIUM CHLORIDE 0.9 % (FLUSH) 10 ML SYRINGE 5 ML IVF ×3 (12:13→22:12)
--- NOTE | 2024-04-15 13:04 | PC.SOCIAL ---
Discharge planning: Late entry: Called pt's dtr Oscar regarding discharge planning. Dtr agrees with plan for short term rehab at discharge and exterminator care after the rehab stay. Dtr states pt typically agrees to rehab but wants to go home after rehab ends. Dtr is interested in information on the process for guardianship. Emailed dtr information on the [facility] contact for guardianship. Dtr requested placement at a [facility] contracted facility as close to [place] as possible. dialysis social worker secure emailed information to the following [facility] facilities for evaluation for rehab placement. 1. [facility] for evaluation for [facility] and Saritha Strana in [place]. 2. [facility]. 3. [facility] in [facility]. Awaiting calls back on availability and decision on admit. dialysis social worker to follow up as needed.
[2024-04-15] MEDS: NYSTATIN POWDER 1 APPLIC TOPICAL ×2 (13:06→21:32)
[2024-04-15] MEDS: POTASSIUM BICARB 25 MEQ EFFERVESCENT TAB PO ×2 (13:40→16:45)
--- NOTE | 2024-04-15 13:56 | PC.NURSE ---
End of Shift Note: Patient was up in chair most of the morning and then we with OT assisted her into shower and then once she was in bed was able to visualize her bottom and groin and she was complaining of a lot of pain. Groin and labia very red. applied cream along with nystatin power to this area and under her breast. She did not order lunch and her BS was only 129 did not give her scheduled 10 units as she had 14 units this am. Have her currently in bed and laying to her right side. Will continue to monitor until able to give report to next shift.
[2024-04-15] MEDS: LACTOBACILLUS ACIDOPHILUS 1 TABLET 1 TAB PO (17:57)
[2024-04-15] MEDS: ACETAMINOPHEN 325 MG TABLET 650 MG PO (21:30)
[2024-04-15] MEDS: CLOTRIMAZOLE (VAG) cream 1 APPLIC VAGINAL (21:32)
[2024-04-15] MEDS: INSULIN GLARGINE,HUM.REC.ANLOG 100 UNIT/ML INSULN.PEN 30 UNIT SUBCUT (21:33)
[2024-04-15] MEDS: PROCHLORPERAZINE 5 MG/ML VIAL 10 MG IV (22:12)
[2024-04-16] VITALS (7 sets, daily range): BP systolic 131–168; BP diastolic 67–87; PULSE 62–72; RESP 18–20; TEMP 35.9–36.8; O2SAT 94–99
--- NOTE | 2024-04-16 05:46 | PC.NURSE ---
[id number]: Patient alert to self, , and year with forgetfulness and intermittent confusion. Pleasant and redirectable. A1/walker/GB. PRN Oxycodone and Tylenol for L. arm pain and generalized pain/discomfort. Nina patent. Cream and powder applied to reddened areas under BL breasts, abdominal folds, and héctor area.
[2024-04-16 06:36] LABS: Basophils Percent Auto 0.4 % (0.0-3.0); Eosinophils Percent Auto 4.7 % (0.0-7.0); Hematocrit 34.5 % (33.0-51.0); Hemoglobin* 10.8 gm/dL (12.0-16.0); Immature Granulocytes Pct Auto 0.1 %; Lymphocytes Percent Auto 13.3 % (20-44); Mean Corpuscular HGB Conc 31 gm/dL (32-36); Mean Corpuscular Hemoglobin 28 pg (26-34); Mean Corpuscular Volume 90 fL (80-100); Monocytes Percent Auto 10.1 % (0.0-11.0); Neutrophils Percent Auto 71.4 % (42.0-72.0); Platelet Count* 262 K/uL (140-440); RDW Coefficient of Variation % 15.7 % (11.5-15.5); Red Blood Count 3.82 m/uL (4.00-5.20); White Blood Count* 13.49 K/uL (4.50-11.00)
[2024-04-16 06:43] LABS: Chloride* 99 mmol/L (96-114); Potassium* 3.5 mmol/L (3.6-5.1); Sodium* 133 mmol/L (135-149)
[2024-04-16 06:46] LABS: Anion Gap 6 mEq/L (7-15); Blood Urea Nitrogen* 17 mg/dL (7-30); Carbon Dioxide* 28 mmol/L (20-32); Creatinine* 2.1 mg/dL (0.5-1.5); Est. Creatinine Clearance* 23.39; Estimated Glomerular Filt Rate 25 ml/min
[2024-04-16 06:47] LABS: Calcium* 8.1 mg/dL (8.4-10.6); Glucose* 131 mg/dL (60-115); Magnesium* 1.8 mg/dL (1.5-2.6)
[2024-04-16 06:58] LABS: Slide Review Reflex No
[2024-04-16] MEDS: ASPIRIN 81 MG TABLET EC PO (09:01)
[2024-04-16] MEDS: FLUCONAZOLE 100 MG TABLET 200 MG PO (09:01)
[2024-04-16] MEDS: AMLODIPINE 10 MG TABLET PO (09:01)
[2024-04-16] MEDS: LACTOBACILLUS ACIDOPHILUS 1 TABLET 1 TAB PO ×3 (09:01→18:15)
[2024-04-16] MEDS: FUROSEMIDE 40 MG TABLET PO (09:01)
[2024-04-16] MEDS: THIAMINE 100 MG TABLET PO (09:02)
[2024-04-16] MEDS: ATORVASTATIN CALCIUM 40 MG TABLET PO (09:02)
[2024-04-16] MEDS: SENNOSIDES/DOCUSATE TABLET 1 TAB PO ×2 (09:02→20:43)
[2024-04-16] MEDS: carvediloL 6.25 MG TABLET 12.5 MG PO ×2 (09:02→20:43)
[2024-04-16] MEDS: lisinopriL 20 MG TABLET 40 MG PO (09:02)
[2024-04-16] MEDS: FLUOXETINE HCL 10 MG CAPSULE PO (09:02)
[2024-04-16] MEDS: NYSTATIN 500,000 UNIT/5 ML 500000 UNIT SWISH/SWAL ×4 (09:02→21:51)
[2024-04-16] MEDS: APIXABAN 5 MG TABLET PO ×2 (09:02→20:44)
[2024-04-16] MEDS: NYSTATIN POWDER 1 APPLIC TOPICAL ×2 (09:03→21:51)
[2024-04-16] MEDS: SODIUM CHLORIDE 0.9 % (FLUSH) 10 ML SYRINGE 5 ML IVF ×2 (09:03→21:51)
[2024-04-16] MEDS: INSULIN ASPART 100 UNIT/ML 10 UNIT SUBCUT ×2 (09:04→12:30)
--- NOTE | 2024-04-16 11:29 | PC.SOCIAL ---
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 Called dtr Oscar and emailed her a copy of the [facility] [facility] Medical Assistance form. Oscar states she and her brother will work on the application and leave it with the proof of income for this social media analyst to send to long-term facilities and to fax into the critical access hospital for processing. Oscar states she works for the [facility] and will talk with staff at that facility about whether they could accept pt to a level of care on that campus with the Medical Assistance pending. neighborhood worker to follow up on Friday. Addendum entered by MICHAEL Méndez 04/16/24 15:43: Received call from [facility] stating they need additional cognitive information. neighborhood worker sent MOCA when completed today. Awaiting decision from [facility]. Dtr requested social media analyst reach out to the following facilities regarding placement, which was done with the listed results: 1. [facility] - [place] - Not accepting admissions next week due to neorovirus outbreak. 2. [facility] in [place] - [phone] - spoke with Talia. Faxed requested information to [phone] for evaluation. 3. [facility] in [place] - spoke with Libby who stated they are no longer accepting [employer] patients. neighborhood worker to follow up as needed. Original Note: Discharge planning: Received messages back from [facility] stating they do not have a bed for this pt. Awaiting decision from [facility] [place]. Responded tp email from dtr with this information and awaiting decision from dtr on more facilities to contact for evaluation for admit for rehab. neighborhood worker to follow up as needed.
--- NOTE | 2024-04-16 13:52 | PM.IMPN1 ---
Progress Note: A&P Assessment and plan (1) Spell of altered consciousness: Problem details: - on 04/14, patient had a spell lasting less than an hour with apparent confusion and inability to communicate verbally, stroke code called - reassuring CT/CTA head - MRI 04/15 with results below - reviewed with Dr. Kirkland of Stroke Neurology who felt that these findings were too small to cause the symptoms 04/14 or to require significant intervention - therapies following, SNF recommended - concerned that these episodes may represent TIAs or seizure Impression: 1. Small acute ischemic infarcts in the right thalamus and left cerebellum. Subacute ischemic infarct in the right parasagittal parietal cortex. 2. Chronic right cerebellar infarcts. Chronic ischemic infarct in the left occipital lobe and right frontal lobe periventricular white matter. 3. Disproportionate enlargement of the ventricles with respect to sulci raises the possibility of normal pressure hydrocephalus. 4. Moderate supratentorial and infratentorial chronic small-vessel ischemic changes. Status: Acute (2) CVA (cerebral vascular accident): Problem details: - 2010, multiple - MRI 04/15/24 reveals the following: - therapies following Impression: 1. Small acute ischemic infarcts in the right thalamus and left cerebellum. Subacute ischemic infarct in the right parasagittal parietal cortex. 2. Chronic right cerebellar infarcts. Chronic ischemic infarct in the left occipital lobe and right frontal lobe periventricular white matter. 3. Disproportionate enlargement of the ventricles with respect to sulci raises the possibility of normal pressure hydrocephalus. 4. Moderate supratentorial and infratentorial chronic small-vessel ischemic changes. Status: Acute (3) Cognitive impairment: Problem details: - presented acutely confused 04/14/24 - memory loss over the past 1-2 years; MOCA in June of 2022 - has seen Neuropsych (01/10) and stroke Neurology as an outpatient (query vascular dementia) - appears to be having evolving cognitive loss - patient appears to have had more cognitive decline since last stay, appreciate assistance from OT/PT/SW Status: Acute (4) Candidal intertrigo: Problem details: - also has oral thrush 04/14/24; treat with 3 days of Diflucan 200mg orally + topical clotrimazole and Nystatin swish and swallow Status: Acute (5) Insulin dependent diabetes mellitus: Problem details: - A1C 9.0 on 03/25/24, continuing home insulin during stay + SSI Status: Acute (6) Elevated troponin: Problem details: - mild, no chest pain (+ nausea) - peak at 0.08, repeat TTE has been ordered for 04/15 given concern for CVA. TTE 04/15/2024 demonstrates the followin. Normal LV chamber size, mild increased wall thickness, normal systolic function, EF 67% 2. Mild concentric LVH with grade 1 pattern of LV diastolic filling 3. Mild enlarged left atrium with increased left atrial pressure 4. Normal RV chamber size and function 5. Functioning 21 mm Inspiris bioprosthesis AVR with no stenosis or regurgitation 6. Sclerotic mitral valve, mild mitral regurgitation, mild mitral stenosis 7. Normal tricuspid valve with trace tricuspid regurgitation 8. Negative bubble study - TTE 01/2024 with results below: Final Impressions: 1. Technically limited exam. 2. Normal left ventricular size, normal wall thickness, normal global systolic function, calculated EF of 64 %. 3. The aortic valve is functioning 21 mm Inspiris bioprosthesis AVR, no stenosis and no regurgitation. There is trivial paravalvular regurgitation. The aortic valve peak velocity is 2.6 m/s, the peak gradient is 27 mmHg, and the mean gradient is 15 mmHg. 4. The mitral valve is sclerotic, mild mitral regurgitation. 5. Mild-moderate tricuspid regurgitation. 6. Elevated estimated pulmonary pressures by tricuspid regurgitation velocity and right atrial pressure (33 mmHg plus RAP). 7. Echo contrast was administered to enhance visualization of all left ventricular segments. Status: Acute (7) Paroxysmal atrial fibrillation: Problem details: - thought to be cause of previous embolic stroke - chronically anticoagulated with warfarin with INR goal of 2-3 (subtherapeutic INR 04/13, bridging with Lovenox) - > transitioned to Apixaban on 04/14, continue - continue home dose of carvedilol for rate control Status: Acute (8) Chronic anticoagulation: Problem details: - for history of embolic stroke due to atrial fibrillation, also remote h/o DVT - transitioned to Apixaban from warfarin 04/14/24, continue Status: Acute (9) Noncompliance with medication regimen: Problem details: - noted to have subtherapeutic INR and hyperglycemia on admission, concern for not managing home medications well - transitioned to Apixaban 04/14/24 - will likely require longterm SNF placement upon d/c - patient agreeable as of 04/16/2024 and daughter concurs Status: Acute (10) Anemia: Problem details: - chronic, normocytic, unclear etiology, has received outpatient iron infusions with PCP - continue oral iron supplementation d/c - reassuring colonoscopy 01/[address] Ritter - baseline Hg 11, with Hg 10.5 on 04/15/24 Status: Acute (11) Vomiting: Problem details: - noted after episode of AMS 04/14, reassuring Ct A/P - symptoms resolved 04/15, tolerating diet Status: Acute (12) Diarrhea: Problem details: - noted during OT 04/15/24 - adding probiotics, C-Diff is negative as of 04/14/2024 Status: Acute Plan 1. Reviewed impression and recommendations with patient and daughter 2. Answered their questions to their satisfaction 3. The agreeable with above stated plans and recommendations Time Spent With Patient Total time spent: 50 minutes Subjective Date Seen: 04/16/24 Interval history: ?Amparo was admitted to the hospital early on 04/14 for confusion in the setting of hyperglycemia. Was improving and close to baseline until yesterday afternoon, at which time she had acute onset of confusion and expressive aphasia, AMS. Stroke code was called, imaging reassuring. BG 141. Stroke Neurology consulted; felt that no acute intervention necessary, recommend TTE and MRI. ?MRI obtained 04/15 with results below. Stroke Neurology following, reviewed results with Dr. Kirkland on 04/15 who feels that these areas of ischemia below are too small to have caused the deficits observed 04/14/24. He did not recommend any further intervention or treatment besides the transition from Warfarin to Apixaban. ?Impression : 1. Small acute ischemic infarcts in the right thalamus and left cerebellum. Subacute ischemic infarct in the right parasagittal parietal cortex. 2. Chronic right cerebellar infarcts. Chronic ischemic infarct in the left occipital lobe and right frontal lobe periventricular white matter. 3. Disproportionate enlargement of the ventricles with respect to sulci raises the possibility of normal pressure hydrocephalus. 4. Moderate supratentorial and infratentorial chronic small-vessel ischemic changes.? 04/16/2024: Hospital day 3. When I examined her this morning she indicates she feels closer to baseline. Still weak. Acknowledges intermittent confusion. Tells me how sometime she sees numbers and letters on the wall. Nose these things are not really there and is able to discern these as visual hallucinations. I assess the patient with her daughter beside her, her daughter concurs that her mom is close to baseline in terms of her interactions. Patient tells me she is starting to realize that she can no longer care for herself in her own home and that she needs a different living plan. Exam Narrative: Exam Narrative: Examined patient in her hospital room. Appears comfortable and in no acute distress. Alert and oriented x3. Articulate and cooperative. Neck is supple. Lungs clear to auscultation. Heart tones with regular rhythm. Abdomen with active bowel sounds, soft. Trace edema pretibially bilaterally, much improved from when I last saw her late last year in 2023. No obvious focal motor neurologic deficits. Const: Vital Signs, click to edit/add: Vital Signs - 24 hr 04/15/24 15:05 04/15/24 15:05 04/15/24 15:12 Temperature 97.8 F Pulse Rate 64 Pulse Rate [Right Pulse Oximeter] 65 Respiratory Rate 16 Blood Pressure [Le ft Arm] 147/68 H Blood Pressure [Ri ght Arm] Pulse Oximetry 98 98 Oxygen Delivery Me thod Room Air 04/15/24 19:20 04/15/24 22:50 04/15/24 23:00 Temperature 98.9 F 98.3 F Pulse Rate Pulse Rate [Right Pulse Oximeter] 72 67 Respiratory Rate 20 18 Blood Pressure [Le ft Arm] Blood Pressure [Ri ght Arm] 173/79 H 173/70 H Pulse Oximetry 96 96 95 Oxygen Delivery Me thod Room Air Room Air 04/15/24 23:09 04/16/24 03:41 04/16/24 07:00 Temperature 97.5 F L Pulse Rate 67 Pulse Rate [Right Pulse Oximeter] 62 Respiratory Rate 20 Blood Pressure [Le ft Arm] Blood Pressure [Ri ght Arm] 142/72 H Pulse Oximetry 94 96 Oxygen Delivery Me thod Room Air 04/16/24 07:00 04/16/24 07:00 04/16/24 07:00 Temperature 97.8 F Pulse Rate 65 Pulse Rate [Right Pulse Oximeter] 63 63 Respiratory Rate 18 18 Blood Pressure [Le ft Arm] 152/81 H Blood Pressure [Ri ght Arm] Pulse Oximetry 96 Oxygen Delivery Me thod Room Air 04/16/24 11:00 Temperature 97.6 F Pulse Rate Pulse Rate [Right Pulse Oximeter] 64 Respiratory Rate 18 Blood Pressure [Le ft Arm] 131/77 Blood Pressure [Ri ght Arm] Pulse Oximetry 98 Oxygen Delivery Me thod Room Air Labs Labs: Laboratory Results - last 24 hr 04/16/24 05:51 WBC 13.49 H RBC 3.82 L Hgb 10.8 L Hct 34.5 MCV 90 MCH 28 MCHC 31 L RDW Coeff of Aditi 15.7 H Plt Count 262 Neut % (Auto) 71.4 Lymph % (Auto) 13.3 L [place] % (Auto) 10.1 Eos % (Auto) 4.7 Baso % (Auto) 0.4 Neut # (Auto) 9.60 H Lymph # (Auto) 1.80 [place] # (Auto) 1.40 H Eos # (Auto) 0.60 H Baso # (Auto) 0.10 Abs Immat Gran (auto) 0.00 Imm/Tot Granulo (auto) 0.1 Sodium 133 L Potassium 3.5 L Chloride 99 Carbon Dioxide 28 Anion Gap 6 L BUN 17 Creatinine 2.1 H Estimated Creat Clear 23.39 Estimated GFR 25 Glucose 131 H Calcium 8.1 L Magnesium 1.8
[2024-04-16] MEDS: 0.9 % SODIUM CHLORIDE 250 ml 250 ML IV (15:24)
--- NOTE | 2024-04-16 17:25 | PC.SOCIAL ---
Social work: Received call from [facility] worker, Evonne, stating they have an [facility] case on pt. Evonne requested Discharge summary and information on discharge location be sent to her at discharge. cathead worker to follow up as needed.
--- NOTE | 2024-04-16 19:16 | PC.NURSE ---
Pt alert, oriented though forgetful at times and repetitive with statements. Vitally stable. Pt states pain in groin, under abdominal folds and breasts. Upon inspection, the areas were red and raw with some open areas. Staff cleaned, dried and applied nystatin powder to these locations and applied antibacterial cream to labia area. Pt moves via 1a, walker and gait belt. Pt states seeing florescent letters and numbers on the osorio, pt was reassured, reoriented and MD notified (Rafal). Tele shows NSR with BBB and prolonged QT. Nurse to nurse given to Blanca at the [facility], she stated she ?will discuss with the team and give us a call back.? Pt up in wheelchair throughout shift, pt states it is more comfortable than in the recliner. 1700 blood glucose was 68, MD notified (Getachew), insulin held, apple juice given. Pt now in recliner, appears to be resting, call light within reach. ?
[2024-04-16] MEDS: INSULIN ASPART 100 UNIT/ML SUBCUT (20:44)
[2024-04-16] MEDS: INSULIN GLARGINE,HUM.REC.ANLOG 100 UNIT/ML INSULN.PEN 30 UNIT SUBCUT (20:44)
[2024-04-17] VITALS (7 sets, daily range): BP systolic 144–192; BP diastolic 64–72; PULSE 63–72; RESP 16–18; TEMP 36.3–36.8; O2SAT 94–95
[2024-04-17] MEDS: PROCHLORPERAZINE 5 MG/ML VIAL 10 MG IV (05:39)
[2024-04-17] MEDS: SODIUM CHLORIDE 0.9 % (FLUSH) 10 ML SYRINGE 5 ML IVF ×2 (05:40→09:28)
--- NOTE | 2024-04-17 06:24 | PC.NURSE ---
shift note: vss stable. pt afeb. ambulated in barlow x1. bar output 450cc/12 hrs. urine cloudy yellow with strong odor. pt alert to self. reoriented multiple times to place and time. received prn Compazine for nausea this a.m. blood sugar checked this a.m @ 0430 due to c/o dizziness & nausea. pt received snack. vss rechecked and stable. IV dc'd lt ac due to phlebitis and restarted in lt wrist.
[2024-04-17 07:23] LABS: Hematocrit 33.2 % (33.0-51.0); Hemoglobin* 10.5 gm/dL (12.0-16.0); Mean Corpuscular HGB Conc 32 gm/dL (32-36); Mean Corpuscular Hemoglobin 28 pg (26-34); Mean Corpuscular Volume 90 fL (80-100); Platelet Count* 255 K/uL (140-440); Red Blood Count 3.71 m/uL (4.00-5.20); White Blood Count* 15.82 K/uL (4.50-11.00)
[2024-04-17 07:26] LABS: Slide Review Reflex No
[2024-04-17 07:37] LABS: Lactate* 0.9 mmol/L (0.5-1.9)
[2024-04-17 08:02] LABS: Chloride* 98 mmol/L (96-114); Potassium* 4.1 mmol/L (3.6-5.1); Sodium* 131 mmol/L (135-149)
[2024-04-17 08:04] LABS: Blood Urea Nitrogen* 24 mg/dL (7-30); Creatinine* 2.8 mg/dL (0.5-1.5); Est. Creatinine Clearance* 17.54; Estimated Glomerular Filt Rate 18 ml/min
[2024-04-17 08:05] LABS: Anion Gap 5 mEq/L (7-15); Calcium* 7.9 mg/dL (8.4-10.6); Carbon Dioxide* 28 mmol/L (20-32); Glucose* 135 mg/dL (60-115); Magnesium* 1.8 mg/dL (1.5-2.6); Phosphorus* 4.3 mg/dL (2.5-4.5)
[2024-04-17] MEDS: INSULIN ASPART 100 UNIT/ML 10 UNIT SUBCUT ×2 (08:10→12:43)
[2024-04-17] MEDS: LACTOBACILLUS ACIDOPHILUS 1 TABLET 1 TAB PO ×3 (08:11→17:39)
[2024-04-17] MEDS: NYSTATIN 500,000 UNIT/5 ML 500000 UNIT SWISH/SWAL ×4 (08:35→20:39)
[2024-04-17] MEDS: NYSTATIN POWDER 1 APPLIC TOPICAL ×2 (08:36→20:39)
[2024-04-17] MEDS: CLOTRIMAZOLE (VAG) cream 1 APPLIC VAGINAL ×2 (08:37→20:00)
[2024-04-17] MEDS: lisinopriL 20 MG TABLET 40 MG PO (09:27)
[2024-04-17] MEDS: ATORVASTATIN CALCIUM 40 MG TABLET PO (09:27)
[2024-04-17] MEDS: FLUOXETINE HCL 10 MG CAPSULE PO (09:27)
[2024-04-17] MEDS: AMLODIPINE 10 MG TABLET PO (09:27)
[2024-04-17] MEDS: THIAMINE 100 MG TABLET PO (09:28)
[2024-04-17] MEDS: FUROSEMIDE 40 MG TABLET PO (09:28)
[2024-04-17] MEDS: carvediloL 6.25 MG TABLET 12.5 MG PO ×2 (09:28→20:59)
[2024-04-17] MEDS: ASPIRIN 81 MG TABLET EC PO (09:28)
[2024-04-17] MEDS: APIXABAN 5 MG TABLET PO ×2 (09:28→20:59)
[2024-04-17] MEDS: 0.9 % SODIUM CHLORIDE 1000 ml 1,000 ML 75 ML IV (10:46)
[2024-04-17] MEDS: cefTRIAXone 1 GM in 0.9 % SODIUM CHLORIDE Mini-bag 100 ML IVPB (10:46)
--- NOTE | 2024-04-17 15:03 | PM.IMPN1 ---
Progress Note: A&P Assessment and plan (1) Acute kidney injury: Problem details: - creatinine 2.8 up from baseline of 0.7 on admission. BUN not elevated. Patient has Bar catheter in place, no evidence of lower obstruction. No evidence of hypotension. I have reviewed her medications and will hold furosemide and lisinopril. She did already get her doses of that this morning. Will also give IV fluids overnight and recheck in the morning. May need renal ultrasound or further investigation. Status: Acute (2) Spell of altered consciousness: Problem details: - on 04/14, patient had a spell lasting less than an hour with apparent confusion and inability to communicate verbally, stroke code called - reassuring CT/CTA head - MRI 04/15 with results below - reviewed with Dr. Kirkland of Stroke Neurology who felt that these findings were too small to cause the symptoms 04/14 or to require significant intervention - therapies following, SNF recommended - concerned that these episodes may represent TIAs or seizure Impression: 1. Small acute ischemic infarcts in the right thalamus and left cerebellum. Subacute ischemic infarct in the right parasagittal parietal cortex. 2. Chronic right cerebellar infarcts. Chronic ischemic infarct in the left occipital lobe and right frontal lobe periventricular white matter. 3. Disproportionate enlargement of the ventricles with respect to sulci raises the possibility of normal pressure hydrocephalus. 4. Moderate supratentorial and infratentorial chronic small-vessel ischemic changes. Status: Acute (3) CVA (cerebral vascular accident): Problem details: - 2010, multiple - MRI 04/15/24 reveals the following: - therapies following Impression: 1. Small acute ischemic infarcts in the right thalamus and left cerebellum. Subacute ischemic infarct in the right parasagittal parietal cortex. 2. Chronic right cerebellar infarcts. Chronic ischemic infarct in the left occipital lobe and right frontal lobe periventricular white matter. 3. Disproportionate enlargement of the ventricles with respect to sulci raises the possibility of normal pressure hydrocephalus. 4. Moderate supratentorial and infratentorial chronic small-vessel ischemic changes. Status: Acute (4) Cognitive impairment: Problem details: - presented acutely confused 04/14/24 - memory loss over the past 1-2 years; MOCA in June of 2022 - has seen Neuropsych (01/10) and stroke Neurology as an outpatient (query vascular dementia) - appears to be having evolving cognitive loss - patient appears to have had more cognitive decline since last stay, appreciate assistance from OT/PT/SW Status: Acute (5) Candidal intertrigo: Problem details: - also has oral thrush 04/14/24; treat with 3 days of Diflucan 200mg orally + topical clotrimazole and Nystatin swish and swallow Status: Acute (6) Insulin dependent diabetes mellitus: Problem details: - A1C 9.0 on 03/25/24, continuing home insulin during stay + SSI - 04/17 POC glucoses variable: 68-280s, decrease LA insulin slightly, halve mealtime insulin and increase ISS Status: Acute (7) Elevated troponin: Problem details: - mild, no chest pain (+ nausea) - peak at 0.08, repeat TTE has been ordered for 04/15 given concern for CVA. TTE 04/15/2024 demonstrates the followin. Normal LV chamber size, mild increased wall thickness, normal systolic function, EF 67% 2. Mild concentric LVH with grade 1 pattern of LV diastolic filling 3. Mild enlarged left atrium with increased left atrial pressure 4. Normal RV chamber size and function 5. Functioning 21 mm Inspiris bioprosthesis AVR with no stenosis or regurgitation 6. Sclerotic mitral valve, mild mitral regurgitation, mild mitral stenosis 7. Normal tricuspid valve with trace tricuspid regurgitation 8. Negative bubble study - TTE 01/2024 with results below: Final Impressions: 1. Technically limited exam. 2. Normal left ventricular size, normal wall thickness, normal global systolic function, calculated EF of 64 %. 3. The aortic valve is functioning 21 mm Inspiris bioprosthesis AVR, no stenosis and no regurgitation. There is trivial paravalvular regurgitation. The aortic valve peak velocity is 2.6 m/s, the peak gradient is 27 mmHg, and the mean gradient is 15 mmHg. 4. The mitral valve is sclerotic, mild mitral regurgitation. 5. Mild-moderate tricuspid regurgitation. 6. Elevated estimated pulmonary pressures by tricuspid regurgitation velocity and right atrial pressure (33 mmHg plus RAP). 7. Echo contrast was administered to enhance visualization of all left ventricular segments. Status: Acute (8) Paroxysmal atrial fibrillation: Problem details: - thought to be cause of previous embolic stroke - chronically anticoagulated with warfarin with INR goal of 2-3 (subtherapeutic INR 2, bridging with Lovenox) - > transitioned to Apixaban on 04/14, continue - continue home dose of carvedilol for rate control Status: Acute (9) Chronic anticoagulation: Problem details: - for history of embolic stroke due to atrial fibrillation, also remote h/o DVT - transitioned to Apixaban from warfarin 04/14/24, continue Status: Acute (10) Noncompliance with medication regimen: Problem details: - noted to have subtherapeutic INR and hyperglycemia on admission, concern for not managing home medications well - transitioned to Apixaban 04/14/24 - will likely require retirement SNF placement upon d/c - patient agreeable as of 04/16/2024 and daughter concurs Status: Acute (11) Anemia: Problem details: - chronic, normocytic, unclear etiology, has received outpatient iron infusions with PCP - continue oral iron supplementation d/c - reassuring colonoscopy 01/[address] Ritter - baseline Hg 11, with Hg 10.5 on 04/15/24 Status: Acute (12) Vomiting: Problem details: - noted after episode of AMS 04/14, reassuring Ct A/P - symptoms resolved 04/15, tolerating diet Status: Acute (13) Diarrhea: Problem details: - noted during OT 04/15/24 - adding probiotics, C-Diff is negative as of 04/14/2024 Status: Acute Plan - Awaiting SNF bed - Developing YOANA, as above - Adjusting insulin, as above Time Spent With Patient Total time spent: Today I spent 35 minutes seeing the patient, reviewing Expanse and EPIC notes/diagnostics/labs, discussing the care plan with our care team that includes social work, PT/OT, pharmacy, RT, care home and documenting my impressions and plan in the medical record. Subjective Time Seen by Provider: 10:30 Date Seen: 04/17/24 Interval history: Amparo feels very well, but can't wait to get out of here. She is understanding that she likely needs rehab and is agreeable with that. She has a bar catheter. She notes ongoing pain in her groin from the yeast infection, but notes it is getting better since she has been here. Exam Narrative: Exam Narrative: General: No acute distress. Awake, alert, oriented x3. No pallor. No jaundice. Verbose. Oropharynx: Clear. Mucous membranes moist. Cardiovascular: Regular rate and rhythm. No murmurs, gallops, or rubs. Respiratory: Clear to auscultation bilaterally. No wheezes or crackles. Abdomen: Bowel sounds present. Soft, nondistended, nontender. Groin: Indwelling catheter. Vulvar candidiasis. Extremities: No lower extremity edema. Const: Vital Signs, click to edit/add: Vital Signs - 24 hr 04/16/24 19:00 04/16/24 22:51 04/16/24 23:00 Temperature 96.7 F L 98.3 F Pulse Rate 67 Pulse Rate [Right Pulse Oximeter] 72 72 Respiratory Rate 18 18 Blood Pressure [Le ft Arm] 168/67 H 158/87 H Blood Pressure [Ri ght Arm] Pulse Oximetry 98 95 Oxygen Delivery Me thod Room Air Room Air 04/16/24 23:00 04/17/24 03:00 04/17/24 07:00 Temperature 97.3 F L Pulse Rate Pulse Rate [Right Pulse Oximeter] 69 Respiratory Rate 16 Blood Pressure [Le ft Arm] 192/71 H Blood Pressure [Ri ght Arm] Pulse Oximetry 99 95 94 Oxygen Delivery Me thod Room Air 04/17/24 07:00 04/17/24 07:23 04/17/24 10:57 Temperature 98.2 F 97.8 F Pulse Rate 67 Pulse Rate [Right Pulse Oximeter] 71 63 Respiratory Rate 16 18 Blood Pressure [Le ft Arm] 155/72 H Blood Pressure [Ri ght Arm] 144/64 H Pulse Oximetry 94 95 Oxygen Delivery Me thod Room Air Room Air Labs Labs: Laboratory Results - last 24 hr 04/17/24 06:48 WBC 15.82 H RBC 3.71 L Hgb 10.5 L Hct 33.2 MCV 90 MCH 28 MCHC 32 Plt Count 255 Sodium 131 L Potassium 4.1 Chloride 98 Carbon Dioxide 28 Anion Gap 5 L BUN 24 Creatinine 2.8 H Estimated Creat Clear 17.54 Estimated GFR 18 Glucose 135 H Lactate 0.9 Calcium 7.9 L Phosphorus 4.3 Magnesium 1.8
[2024-04-17] MEDS: 0.9 % SODIUM CHLORIDE 500 ML 500 ML IV (16:13)
[2024-04-17 16:14] LABS: Vitamin B1, Whole Blood 135 nmol/L (70-180)
--- NOTE | 2024-04-17 17:19 | PC.NURSE ---
Shift Summary: Patient pleasant and cooperative. Up with one assist, walker and gait belt, encouraged to walk in halls with staff. Vitals stable and WNL. States she has chronic pain in shoulder and knees, denies need for medication or aqua-k pad, states pain is only present when moving and is still tolerable. low urine output, updated MD and ordered bolus. BG 54 around noon, patient asymptomatic, MD updated and verbal order to give 5units insulin instead of 10units with lunch, see APR. BG checked after lunch and was 142.
[2024-04-17] MEDS: INSULIN ASPART 100 UNIT/ML SUBCUT ×3 (17:33→21:04)
[2024-04-17] MEDS: INSULIN GLARGINE,HUM.REC.ANLOG 100 UNIT/ML INSULN.PEN 25 UNIT SUBCUT (21:00)
--- NOTE | 2024-04-17 22:56 | PC.NURSE ---
shift note: [id number] for [address] Sethi notified. awaiting orders.
[2024-04-18] VITALS (10 sets, daily range): BP systolic 143–160; BP diastolic 57–84; PULSE 66–73; RESP 16–18; TEMP 36.5–36.8; O2SAT 94–97
[2024-04-18] MEDS: 0.9 % SODIUM CHLORIDE 1000 ml 1,000 ML 75 ML IV ×2 (00:33→13:50)
--- NOTE | 2024-04-18 05:59 | PC.NURSE ---
shift note: denies pain. vss stable. afeb. [id number] this a.m.
[2024-04-18 07:15] LABS: Basophils Percent Auto 0.5 % (0.0-3.0); Eosinophils Percent Auto 3.4 % (0.0-7.0); Hematocrit 31.5 % (33.0-51.0); Immature Granulocytes Pct Auto 0.3 %; Lymphocytes Percent Auto 10.6 % (20-44); Mean Corpuscular HGB Conc 32 gm/dL (32-36); Mean Corpuscular Hemoglobin 29 pg (26-34); Mean Corpuscular Volume 90 fL (80-100); Monocytes Percent Auto 9.1 % (0.0-11.0); Neutrophils Percent Auto 76.1 % (42.0-72.0); Platelet Count* 268 K/uL (140-440); RDW Coefficient of Variation % 15.6 % (11.5-15.5); Red Blood Count 3.51 m/uL (4.00-5.20); White Blood Count* 14.77 K/uL (4.50-11.00)
[2024-04-18 07:23] LABS: Slide Review Reflex No
[2024-04-18 07:30] LABS: Albumin* 2.7 g/dL (3.3-5.0); Chloride* 102 mmol/L (96-114); Potassium* 3.8 mmol/L (3.6-5.1); Sodium* 132 mmol/L (135-149)
[2024-04-18 07:33] LABS: Alanine Aminotransferase* 12 U/L (4-35); Alkaline Phosphatase* 112 U/L (40-150); Anion Gap 5 mEq/L (7-15); Aspartate Amino Transferase* 16 U/L (12-35); Bilirubin Total* 0.2 mg/dL (0.1-1.5); Blood Urea Nitrogen* 29 mg/dL (7-30); Carbon Dioxide* 25 mmol/L (20-32); Creatinine* 2.8 mg/dL (0.5-1.5); Est. Creatinine Clearance* 17.54; Estimated Glomerular Filt Rate 18 ml/min; Glucose* 74 mg/dL (60-115); Total Protein* 5.5 g/dL (6.0-8.3)
[2024-04-18 07:34] LABS: Calcium* 7.8 mg/dL (8.4-10.6)
--- NOTE | 2024-04-18 08:23 | CRLHL7_ITS ---
For Patients: As a result of the Century Cures Act, medical imaging exams and procedure reports are released immediately into your electronic medical record. You may view this report before your referring provider. If you have questions, please contact your health care provider. INDICATION: YOANA. TECHNIQUE: Ultrasound renal and bladder complete. Gallardo-scale and color Doppler sonographic images were acquired of the kidneys and urinary bladder. COMPARISON: CT abdomen and pelvis March 2024 FINDINGS: Right kidney: 11.8 x 5.7 cm. Renal cortical thickness measures 1 point 6 cm. Normal echotexture and cortex. No suspicious masses, stones, or hydronephrosis. Preserved vascularity. Left kidney: 10.5 x 6.6 cm. Renal cortical thickness measures 2.0 cm. Normal echotexture and cortex. No suspicious masses, stones, or hydronephrosis. Preserved vascularity. Bladder: Urinary bladder is decompressed with Nina catheter in place. Diffuse circumferential bladder wall thickening likely related to decompression. IMPRESSION: Normal ultrasound examination of bilateral kidneys. Decompressed urinary bladder with Nina catheter in place. Dictated by Shawn Reyes MD @ 04/18/2024 10:28:54 AM (Electronically Signed)
[2024-04-18] MEDS: INSULIN ASPART 100 UNIT/ML SUBCUT ×5 (08:45→21:14)
[2024-04-18] MEDS: ASPIRIN 81 MG TABLET EC PO (08:46)
[2024-04-18] MEDS: ATORVASTATIN CALCIUM 40 MG TABLET PO (08:46)
[2024-04-18] MEDS: THIAMINE 100 MG TABLET PO (08:46)
[2024-04-18] MEDS: LACTOBACILLUS ACIDOPHILUS 1 TABLET 1 TAB PO ×3 (08:46→17:56)
[2024-04-18] MEDS: FLUOXETINE HCL 10 MG CAPSULE PO (08:46)
[2024-04-18] MEDS: AMLODIPINE 10 MG TABLET PO (08:46)
[2024-04-18] MEDS: carvediloL 6.25 MG TABLET 12.5 MG PO ×2 (08:46→21:07)
[2024-04-18] MEDS: NYSTATIN 500,000 UNIT/5 ML 500000 UNIT SWISH/SWAL ×4 (08:46→21:13)
[2024-04-18] MEDS: APIXABAN 5 MG TABLET PO ×2 (08:46→21:08)
[2024-04-18] MEDS: NYSTATIN POWDER 1 APPLIC TOPICAL ×2 (09:52→21:45)
[2024-04-18] MEDS: CLOTRIMAZOLE (VAG) cream 1 APPLIC VAGINAL (11:03)
[2024-04-18] MEDS: cefTRIAXone 1 GM in 0.9 % SODIUM CHLORIDE Mini-bag 100 ML IVPB (12:01)
--- NOTE | 2024-04-18 15:43 | P.IMPN_ITS ---
Progress Note: A&P Assessment and plan (1) Acute kidney injury: Problem details: - 3 creatinine 2.8 up from baseline of 0.7 on admission. BUN not elevated. Patient has Bar catheter in place, no evidence of lower obstruction. No evidence of hypotension. I have reviewed her medications and will hold furosemide and lisinopril. She did already get her doses of that this morning. Will also give IV fluids overnight and recheck in the morning. May need renal ultrasound or further investigation. - 04/18 Cr stable at 2.8 after IVF bolus and maintenance overnight. Renal US unremarkable. Urine in catheter has sediment - check UA (last one was on 04/14/24). Continue IVF at 75 cc/hr overnight yet, continue to hold lisinopril and furosemide. Recheck Cr in am. Status: Acute (2) Spell of altered consciousness: Problem details: - on 04/14, patient had a spell lasting less than an hour with apparent confusion and inability to communicate verbally, stroke code called - reassuring CT/CTA head - MRI 04/15 with results below - reviewed with Dr. Kirkland of Stroke Neurology who felt that these findings were too small to cause the symptoms 04/14 or to require significant intervention - therapies following, SNF recommended - concerned that these episodes may represent TIAs or seizure Impression: 1. Small acute ischemic infarcts in the right thalamus and left cerebellum. Subacute ischemic infarct in the right parasagittal parietal cortex. 2. Chronic right cerebellar infarcts. Chronic ischemic infarct in the left occipital lobe and right frontal lobe periventricular white matter. 3. Disproportionate enlargement of the ventricles with respect to sulci raises the possibility of normal pressure hydrocephalus. 4. Moderate supratentorial and infratentorial chronic small-vessel ischemic c hanges. Status: Acute (3) CVA (cerebral vascular accident): Problem details: - 2010, multiple - MRI 04/15/24 reveals the following: - therapies following Impression: 1. Small acute ischemic infarcts in the right thalamus and left cerebellum. Subacute ischemic infarct in the right parasagittal parietal cortex. 2. Chronic right cerebellar infarcts. Chronic ischemic infarct in the left occipital lobe and right frontal lobe periventricular white matter. 3. Disproportionate enlargement of the ventricles with respect to sulci raises the possibility of normal pressure hydrocephalus. 4. Moderate supratentorial and infratentorial chronic small-vessel ischemic changes. Status: Acute (4) Cognitive impairment: Problem details: - presented acutely confused 04/14/24 - memory loss over the past 1-2 years; MOCA in June of 2022 - has seen Neuropsych (01/10) and stroke Neurology as an outpatient (query vascular dementia) - appears to be having evolving cognitive loss - patient appears to have had more cognitive decline since last stay, appreciate assistance from OT/PT/SW Status: Acute (5) Candidal intertrigo: Problem details: - also has oral thrush 04/14/24; treat with 3 days of Diflucan 200mg orally + topical clotrimazole and Nystatin swish and swallow Status: Acute (6) Insulin dependent diabetes mellitus: Problem details: - A1C 9.0 on 03/25/24, continuing home insulin during stay + SSI - 3/ POC glucoses variable: 68-280s, decrease LA insulin slightly, halve mealtime insulin and increase ISS - 3/2 POC glucoses still variable: continue current regimen and follow Status: Acute (7) Elevated troponin: Problem details: - mild, no chest pain (+ nausea) - peak at 0.08, repeat TTE has been ordered for 04/15 given concern for CVA. TTE 04/15/2024 demonstrates the followin. Normal LV chamber size, mild increased wall thickness, normal systolic function, EF 67% 2. Mild concentric LVH with grade 1 pattern of LV diastolic filling 3. Mild enlarged left atrium with increased left atrial pressure 4. Normal RV chamber size and function 5. Functioning 21 mm Inspiris bioprosthesis AVR with no stenosis or regurgitation 6. Sclerotic mitral valve, mild mitral regurgitation, mild mitral stenosis 7. Normal tricuspid valve with trace tricuspid regurgitation 8. Negative bubble study - TTE 01/2024 with results below: Final Impressions: 1. Technically limited exam. 2. Normal left ventricular size, normal wall thickness, normal global systolic function, calculated EF of 64 %. 3. The aortic valve is functioning 21 mm Inspiris bioprosthesis AVR, no stenosis and no regurgitation. There is trivial paravalvular regurgitation. The aortic valve peak velocity is 2.6 m/s, the peak gradient is 27 mmHg, and the mean gradient is 15 mmHg. 4. The mitral valve is sclerotic, mild mitral regurgitation. 5. Mild-moderate tricuspid regurgitation. 6. Elevated estimated pulmonary pressures by tricuspid regurgitation velocity and right atrial pressure (33 mmHg plus RAP). 7. Echo contrast was administered to enhance visualization of all left ventricular segments. Status: Acute (8) Paroxysmal atrial fibrillation: Problem details: - thought to be cause of previous embolic stroke - chronically anticoagulated with warfarin with INR goal of 2-3 (subtherapeutic INR 04/13, bridging with Lovenox) - > transitioned to Apixaban on 04/14, continue - continue home dose of carvedilol for rate control Status: Acute (9) Chronic anticoagulation: Problem details: - for history of embolic stroke due to atrial fibrillation, also remote h/o DVT - transitioned to Apixaban from warfarin 04/14/24, continue Status: Acute (10) Noncompliance with medication regimen: Problem details: - noted to have subtherapeutic INR and hyperglycemia on admission, concern for not managing home medications well - transitioned to Apixaban 04/14/24 - will likely require [facility] SNF placement upon d/c - patient agreeable as of 04/16/2024 and daughter concurs Status: Acute (11) Anemia: Problem details: - chronic, normocytic, unclear etiology, has received outpatient iron infusions with PCP - continue oral iron supplementation d/c - reassuring colonoscopy 01/[address] Ritter - baseline Hg 11, with Hg 10.5 on 04/15/24 - 04/18 stable around 10 Status: Acute (12) Vomiting: Problem details: - noted after episode of AMS 04/14, reassuring Ct A/P - symptoms resolved 04/15, tolerating diet Status: Resolved (13) Diarrhea: Problem details: - noted during OT 04/15/24 - adding probiotics, C-Diff is negative as of 04/14/2024 Status: Acute Plan - Awaiting SNF bed - Developing YOANA, as above Time Spent With Patient Total time spent: Today I spent 35 minutes seeing the patient, reviewing Expanse and EPIC notes/diagnostics/labs, discussing the care plan with our care team that includes social work, PT/OT, pharmacy, RT, correction and documenting my impressions and plan in the medical record. Subjective Time Seen by Provider: 08:26 Date Seen: 04/18/24 Interval history: Amparo feels well. She denies SOB. Making urine - bar in place. Exam Narrative: Exam Narrative: General: No acute distress. Awake, alert, oriented. No pallor. No jaundice. Oropharynx: Clear. Mucous membranes moist. Cardiovascular: Regular rate and rhythm. No murmurs, gallops, or rubs. Respiratory: Clear to auscultation bilaterally. No wheezes or crackles. Abdomen: Bowel sounds present. Soft, nondistended, nontender. Extremities: No lower extremity edema. Catheter: sediment in clear yellow urine. Const: Vital Signs, click to edit/add: Vital Signs - 24 hr 04/17/24 23:00 04/18/24 00:27 04/18/24 05:22 Temperature 97.8 F 97.8 F Pulse Rate 72 Pulse Rate [Right Pulse Oximeter] 70 70 Respiratory Rate 18 18 Blood Pressure [Le ft Arm] 156/57 H 160/84 H Blood Pressure [Ri ght Arm] Pulse Oximetry 97 96 Oxygen Delivery Me thod Room Air Room Air 04/18/24 07:27 04/18/24 08:25 04/18/24 08:25 Temperature 98 F Pulse Rate 67 Pulse Rate [Right Pulse Oximeter] 67 Respiratory Rate 16 Blood Pressure [Le ft Arm] Blood Pressure [Ri ght Arm] 159/79 H Pulse Oximetry 96 96 Oxygen Delivery Me thod Room Air 04/18/24 11:00 04/18/24 14:16 04/18/24 14:57 Temperature 98.3 F 98.2 F Pulse Rate 67 Pulse Rate [Right Pulse Oximeter] 69 69 Respiratory Rate 16 18 Blood Pressure [Le ft Arm] Blood Pressure [Ri ght Arm] 143/65 H 153/77 H Pulse Oximetry 94 96 Oxygen Delivery Me thod Room Air Room Air 04/18/24 15:00 Temperature Pulse Rate Pulse Rate [Right Pulse Oximeter] Respiratory Rate Blood Pressure [Le ft Arm] Blood Pressure [Ri ght Arm] Pulse Oximetry 96 Oxygen Delivery Me thod Labs Labs: Laboratory Results - last 24 hr 04/14/24 04/18/24 05:56 06:47 WBC 14.77 H RBC 3.51 L Hgb 10.0 L Hct 31.5 L MCV 90 MCH 29 MCHC 32 RDW Coeff of Aditi 15.6 H Plt Count 268 Neut % (Auto) 76.1 H Lymph % (Auto) 10.6 L [place] % (Auto) 9.1 Eos % (Auto) 3.4 Baso % (Auto) 0.5 Neut # (Auto) 11.20 H Lymph # (Auto) 1.60 [place] # (Auto) 1.30 H Eos # (Auto) 0.50 Baso # (Auto) 0.10 Abs Immat Gran (auto) 0.00 Imm/Tot Granulo (auto) 0.3 Sodium 132 L Potassium 3.8 Chloride 102 Carbon Dioxide 25 Anion Gap 5 L BUN 29 Creatinine 2.8 H Estimated Creat Clear 17.54 Estimated GFR 18 Glucose 74 Calcium 7.8 L Total Bilirubin 0.2 AST 16 ALT 12 Alkaline Phosphatase 112 Total Protein 5.5 L Albumin 2.7 L Whole Bld Vitamin B1 135 Ordering Physician: Natalia Quiroz M.D. Date of Service: 04/18/24 Procedure(s): US renal bladder Accession Number(s): [id number] cc: Natalia Quiroz M.D.; Hilda Cheema M.D.~ For Patients: As a result of the Cures Act, medical imaging exams and procedure reports are released immediately into your electronic medical record. You may view this report before your referring provider. If you have questions, please contact your health care provider. INDICATION: YOANA. TECHNIQUE: Ultrasound renal and bladder complete. Gallardo-scale and color Doppler sonographic images were acquired of the kidneys and urinary bladder. COMPARISON: CT abdomen and pelvis March 2024 FINDINGS: Right kidney: 11.8 x 5.7 cm. Renal cortical thickness measures 1 point 6 cm. Normal echotexture and cortex. No suspicious masses, stones, or hydronephrosis. Preserved vascularity. Left kidney: 10.5 x 6.6 cm. Renal cortical thickness measures 2.0 cm. Normal echotexture and cortex. No suspicious masses, stones, or hydronephrosis. Preserved vascularity. Bladder: Urinary bladder is decompressed with Bar catheter in place. Diffuse circumferential bladder wall thickening likely related to decompression. IMPRESSION: Normal ultrasound examination of bilateral kidneys. Decompressed urinary bladder with Bar catheter in place. Dictated by Shawn Reyes MD @ 04/18/2024 10:28:54 AM (Electronically Signed)
[2024-04-18 17:15] LABS: Appearance Urine Clear (Clear); Bilirubin Urine Negative (Negative); Blood Urine 3+ (Negative); Color Urine Yellow (Yellow); Glucose Urine Negative (Negative); Ketones Urine Negative (Negative); Leukocyte Esterase Urine 1+ (Negative); Nitrite Urine Negative (Negative); Protein Urine 3+ (Negative); Urobilinogen Urine 0.2 (0.2-1.0)
[2024-04-18 17:24] LABS: Amorphous Sediment Urine Few; Bacteria Urine Few
--- NOTE | 2024-04-18 18:06 | PC.NURSE ---
Shift Summary: Patient pleasant and cooperative. Up with one assist, walker and gait belt. Up in barlow ambulating with staff, wheelchair to follow in case she becomes weak. Seen using incentive spirometer per self during shift, also performs during vitals. States chronic pain is tolerable, denies need for medication. Labia continues to be reddened, PRN/scheduled medication and skin care done, see MAR.
[2024-04-18] MEDS: INSULIN GLARGINE,HUM.REC.ANLOG 100 UNIT/ML INSULN.PEN 25 UNIT SUBCUT (21:13)
[2024-04-19] VITALS (9 sets, daily range): BP systolic 138–178; BP diastolic 60–80; PULSE 68–76; RESP 18; TEMP 36.8–37.3; O2SAT 93–97
[2024-04-19] MEDS: 0.9 % SODIUM CHLORIDE 1000 ml 1,000 ML 75 ML IV (01:30)
--- NOTE | 2024-04-19 01:49 | PC.NURSE ---
shift note: pt put nurse light on. pt found sitting in recliner with briefs up to knees and bar disconnected on the floor. Pt states I don't know what happened. I went to get up and I felt a sharp pull and then a pop. Dr. Sethi notified and orders to leave bar out at this time. Pt placed supine in bed to assess genital area for blood or abrasions. Labia moist and slightly pink. No blood when héctor area wiped or examined. skin intact around héctor area. Balloon to bar still inflated and intact. end of catheter intact. Pt states héctor area is sore.
--- NOTE | 2024-04-19 05:24 | PC.NURSE ---
shift note: vss stable. afeb temps. IV patent lt wrist. bar dc'd by pt intact. 0500 pt had lg incont void x2. urine bloody. pt wt up 5# from previous day. LS clr. sats 94%.
[2024-04-19 06:37] LABS: Basophils Percent Auto 0.5 % (0.0-3.0); Eosinophils Percent Auto 4.9 % (0.0-7.0); Hematocrit 33.1 % (33.0-51.0); Hemoglobin* 10.4 gm/dL (12.0-16.0); Immature Granulocytes Pct Auto 0.4 %; Lymphocytes Percent Auto 10.5 % (20-44); Mean Corpuscular HGB Conc 31 gm/dL (32-36); Mean Corpuscular Hemoglobin 28 pg (26-34); Mean Corpuscular Volume 90 fL (80-100); Monocytes Percent Auto 9.4 % (0.0-11.0); Neutrophils Percent Auto 74.3 % (42.0-72.0); Platelet Count* 262 K/uL (140-440); RDW Coefficient of Variation % 15.8 % (11.5-15.5); Red Blood Count 3.67 m/uL (4.00-5.20); White Blood Count* 11.95 K/uL (4.50-11.00)
[2024-04-19 06:49] LABS: Chloride* 104 mmol/L (96-114); Potassium* 4.1 mmol/L (3.6-5.1); Sodium* 134 mmol/L (135-149)
[2024-04-19 06:51] LABS: Slide Review Reflex No
[2024-04-19 06:52] LABS: Anion Gap 5 mEq/L (7-15); Blood Urea Nitrogen* 28 mg/dL (7-30); Carbon Dioxide* 25 mmol/L (20-32); Est. Creatinine Clearance* 24.56; Estimated Glomerular Filt Rate 27 ml/min
[2024-04-19 06:53] LABS: Calcium* 8.3 mg/dL (8.4-10.6); Glucose* 82 mg/dL (60-115)
[2024-04-19] MEDS: carvediloL 6.25 MG TABLET 12.5 MG PO ×2 (09:00→21:08)
[2024-04-19] MEDS: ASPIRIN 81 MG TABLET EC PO (09:00)
[2024-04-19] MEDS: LACTOBACILLUS ACIDOPHILUS 1 TABLET 1 TAB PO ×3 (09:00→17:50)
[2024-04-19] MEDS: AMLODIPINE 10 MG TABLET PO (09:00)
[2024-04-19] MEDS: NYSTATIN POWDER 1 APPLIC TOPICAL ×2 (09:01→22:23)
[2024-04-19] MEDS: ATORVASTATIN CALCIUM 40 MG TABLET PO (09:01)
[2024-04-19] MEDS: SENNOSIDES/DOCUSATE TABLET 1 TAB PO (09:01)
[2024-04-19] MEDS: FLUOXETINE HCL 10 MG CAPSULE PO (09:01)
[2024-04-19] MEDS: THIAMINE 100 MG TABLET PO (09:01)
[2024-04-19] MEDS: APIXABAN 5 MG TABLET PO ×2 (09:01→21:08)
[2024-04-19] MEDS: NYSTATIN 500,000 UNIT/5 ML 500000 UNIT SWISH/SWAL ×4 (09:01→21:11)
--- NOTE | 2024-04-19 10:10 | PC.SOCIAL ---
Received call from [facility], [place], stating they are declining pt for admit due to non-compliance and cognitive functioning. canvas worker to continue to work on discharge planning. Secure emailed updated information to [facility]- Admissions for [facility]. Awaiting on admit from [facility].
[2024-04-19] MEDS: cefTRIAXone 1 GM in 0.9 % SODIUM CHLORIDE Mini-bag 100 ML IVPB (11:09)
[2024-04-19] MEDS: INSULIN ASPART 100 UNIT/ML SUBCUT ×4 (12:51→21:10)
--- NOTE | 2024-04-19 12:58 | PM.IMPN1 ---
Progress Note: A&P Assessment and plan (1) Acute kidney injury: Problem details: - 04/17 creatinine 2.8 up from baseline of 0.7 on admission. BUN not elevated. Patient has Nina catheter in place, no evidence of lower obstruction. No evidence of hypotension. I have reviewed her medications and will hold furosemide and lisinopril. She did already get her doses of that this morning. Will also give IV fluids overnight and recheck in the morning. May need renal ultrasound or further investigation. - 04/18 Cr stable at 2.8 after IVF bolus and maintenance overnight. Renal US unremarkable. Urine in catheter has sediment - check UA (last one was on 04/14/24). Continue IVF at 75 cc/hr overnight yet, continue to hold lisinopril and furosemide. Recheck Cr in am. - 04/19 improving. Creatinine down to 2. Stop IV fluids, monitor. Continue to hold lisinopril and furosemide. I spoke with pharmacy - brief Cr elevation may have been from diflucan. Status: Acute (2) Spell of altered consciousness: Problem details: - on 04/14, patient had a spell lasting less than an hour with apparent confusion and inability to communicate verbally, stroke code called - reassuring CT/CTA head - MRI 04/15 with results below - reviewed with Dr. Kirkland of Stroke Neurology who felt that these findings were too small to cause the symptoms 04/14 or to require significant intervention - therapies following, SNF recommended - concerned that these episodes may represent TIAs or seizure Impression: 1. Small acute ischemic infarcts in the right thalamus and left cerebellum. Subacute ischemic infarct in the right parasagittal parietal cortex. 2. Chronic right cerebellar infarcts. Chronic ischemic infarct in the left occipital lobe and right frontal lobe periventricular white matter. 3. Disproportionate enlargement of the ventricles with respect to sulci raises the possibility of normal pressure hydrocephalus. 4. Moderate supratentorial and infratentorial chronic small-vessel ischemic changes. Status: Acute (3) CVA (cerebral vascular accident): Problem details: - 2010, multiple - MRI 04/15/24 reveals the following: - therapies following Impression: 1. Small acute ischemic infarcts in the right thalamus and left cerebellum. Subacute ischemic infarct in the right parasagittal parietal cortex. 2. Chronic right cerebellar infarcts. Chronic ischemic infarct in the left occipital lobe and right frontal lobe periventricular white matter. 3. Disproportionate enlargement of the ventricles with respect to sulci raises the possibility of normal pressure hydrocephalus. 4. Moderate supratentorial and infratentorial chronic small-vessel ischemic changes. Status: Acute (4) Cognitive impairment: Problem details: - presented acutely confused 04/14/24 - memory loss over the past 1-2 years; MOCA 21/30 in June of 2022 - has seen Neuropsych (01/10) and stroke Neurology as an outpatient (query vascular dementia) - appears to be having evolving cognitive loss - patient appears to have had more cognitive decline since last stay, appreciate assistance from OT/PT/SW Status: Acute (5) Candidal intertrigo: Problem details: - also has oral thrush 04/14/24; treat with 3 days of Diflucan 200mg orally + topical clotrimazole and Nystatin swish and swallow Status: Acute (6) Insulin dependent diabetes mellitus: Problem details: - A1C 9.0 on 03/25/24, continuing home insulin during stay + SSI - 3/ POC glucoses variable: 68-280s, decrease LA insulin slightly, halve mealtime insulin and increase ISS - 3/2 POC glucoses still variable: continue current regimen and follow Status: Chronic (7) Elevated troponin: Problem details: - mild, no chest pain (+ nausea) - peak at 0.08, repeat TTE has been ordered for 04/15 given concern for CVA. TTE 04/15/2024 demonstrates the followin. Normal LV chamber size, mild increased wall thickness, normal systolic function, EF 67% 2. Mild concentric LVH with grade 1 pattern of LV diastolic filling 3. Mild enlarged left atrium with increased left atrial pressure 4. Normal RV chamber size and function 5. Functioning 21 mm Inspiris bioprosthesis AVR with no stenosis or regurgitation 6. Sclerotic mitral valve, mild mitral regurgitation, mild mitral stenosis 7. Normal tricuspid valve with trace tricuspid regurgitation 8. Negative bubble study - TTE 01/2024 with results below: Final Impressions: 1. Technically limited exam. 2. Normal left ventricular size, normal wall thickness, normal global systolic function, calculated EF of 64 %. 3. The aortic valve is functioning 21 mm Inspiris bioprosthesis AVR, no stenosis and no regurgitation. There is trivial paravalvular regurgitation. The aortic valve peak velocity is 2.6 m/s, the peak gradient is 27 mmHg, and the mean gradient is 15 mmHg. 4. The mitral valve is sclerotic, mild mitral regurgitation. 5. Mild-moderate tricuspid regurgitation. 6. Elevated estimated pulmonary pressures by tricuspid regurgitation velocity and right atrial pressure (33 mmHg plus RAP). 7. Echo contrast was administered to enhance visualization of all left ventricular segments. Status: Acute (8) Paroxysmal atrial fibrillation: Problem details: - thought to be cause of previous embolic stroke - chronically anticoagulated with warfarin with INR goal of 2-3 (subtherapeutic INR 04/13, bridging with Lovenox) - > transitioned to Apixaban on 04/14, continue - continue home dose of carvedilol for rate control Status: Acute (9) Chronic anticoagulation: Problem details: - for history of embolic stroke due to atrial fibrillation, also remote h/o DVT - transitioned to Apixaban from warfarin 04/14/24, continue Status: Acute (10) Noncompliance with medication regimen: Problem details: - noted to have subtherapeutic INR and hyperglycemia on admission, concern for not managing home medications well - transitioned to Apixaban 04/14/24 - 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 Ritter - baseline Hg 11, with Hg 10.5 on 04/15/24 - 3/ stable around 10 Status: Acute (12) Vomiting: Problem details: - noted after episode of AMS 04/14, reassuring Ct A/P - symptoms resolved 04/15, tolerating diet Status: Resolved (13) Diarrhea: Problem details: - noted during OT 04/15/24 - adding probiotics, C-Diff is negative as of 04/14/2024 Status: Acute Plan - Awaiting SNF bed Time Spent With Patient Total time spent: Today I spent 35 minutes seeing the patient, discussing with the patient and her daughter, reviewing [facility] and EPIC notes/diagnostics/labs, discussing the care plan with our care team that includes social work, PT/OT, pharmacy, RT, mcc and documenting my impressions and plan in the medical record. Subjective Time Seen by Provider: 09: Date Seen: 04/19/24 Interval history: Amparo continues to have pain in the groin, but it is improving every day. She has no other concerns or complaints. Staff reports she pulled her Nina out overnight. I went in again just after noon, and the patient's daughter, Oscar, was in the room with her. Oscar was hopeful that Amparo could go to [facility] see where Oscar works. We discussed presumed medication noncompliance and YOANA. Exam Narrative: Exam Narrative: General: No acute distress. Awake, alert, oriented. No pallor. No jaundice. Oropharynx: Clear. Mucous membranes moist. Cardiovascular: Regular rate and rhythm. No murmurs, gallops, or rubs. Respiratory: Clear to auscultation bilaterally. No wheezes or crackles. Abdomen: Bowel sounds present. Soft, nondistended, nontender. Extremities: No lower extremity edema. Catheter: sediment in clear yellow urine. Const: Vital Signs, click to edit/add: Vital Signs - 24 hr 04/18/24 14:16 04/18/24 14:57 04/18/24 15:00 Temperature 98.2 F Pulse Rate 67 Pulse Rate [Right Pulse Oximeter] 69 Respiratory Rate 18 Blood Pressure [Le ft Arm] Blood Pressure [Ri ght Arm] 153/77 H Pulse Oximetry 96 96 Oxygen Delivery Me thod Room Air 04/18/24 21:46 04/18/24 23:00 04/18/24 23:00 Temperature 97.7 F Pulse Rate 66 Pulse Rate [Right Pulse Oximeter] 73 Respiratory Rate 18 Blood Pressure [Le ft Arm] 152/82 H Blood Pressure [Ri ght Arm] Pulse Oximetry 94 94 Oxygen Delivery Me thod Room Air 04/19/24 01:31 04/19/24 04:57 04/19/24 07:00 Temperature 98.4 F 98.7 F Pulse Rate 71 Pulse Rate [Right Pulse Oximeter] 68 76 Respiratory Rate 18 18 Blood Pressure [Le ft Arm] 178/68 H 151/80 H Blood Pressure [Ri ght Arm] Pulse Oximetry 94 94 Oxygen Delivery Me thod Room Air Room Air 04/19/24 08:52 04/19/24 08:52 04/19/24 08:52 Temperature 99.1 F Pulse Rate Pulse Rate [Right Pulse Oximeter] 76 71 Respiratory Rate 18 18 Blood Pressure [Le ft Arm] Blood Pressure [Ri ght Arm] 151/72 H Pulse Oximetry 93 93 Oxygen Delivery Me thod Room Air 04/19/24 11:00 Temperature 98.9 F Pulse Rate Pulse Rate [Right Pulse Oximeter] 68 Respiratory Rate 18 Blood Pressure [Le ft Arm] Blood Pressure [Ri ght Arm] 138/64 Pulse Oximetry 97 Oxygen Delivery Me thod Room Air Labs Labs: Laboratory Results - last 24 hr 04/18/24 04/19/24 17:05 06:16 WBC 11.95 H RBC 3.67 L Hgb 10.4 L Hct 33.1 MCV 90 MCH 28 MCHC 31 L RDW Coeff of Aditi 15.8 H Plt Count 262 Neut % (Auto) 74.3 H Lymph % (Auto) 10.5 L [place] % (Auto) 9.4 Eos % (Auto) 4.9 Baso % (Auto) 0.5 Neut # (Auto) 8.90 H Lymph # (Auto) 1.30 [place] # (Auto) 1.10 H Eos # (Auto) 0.60 H Baso # (Auto) 0.10 Abs Immat Gran (auto) 0.00 Imm/Tot Granulo (auto) 0.4 Sodium 134 L Potassium 4.1 Chloride 104 Carbon Dioxide 25 Anion Gap 5 L BUN 28 Creatinine 2.0 H Estimated Creat Clear 24.56 Estimated GFR 27 Glucose 82 Calcium 8.3 L Urine Color Yellow Urine Appearance Clear Urine pH 6.0 Ur Specific [place] 1.020 Urine Protein 3+ A Urine Glucose (UA) Negative Urine Ketones Negative Urine Blood 3+ A Urine Nitrite Negative Urine Bilirubin Negative Urine Urobilinogen 0.2 Ur Leukocyte Esterase 1+ A Urine RBC 5-10 A Urine WBC 2-5 Ur Squamous Epith Cells None Amorphous Sediment Few A Urine Bacteria Few A
--- NOTE | 2024-04-19 15:16 | PC.NURSE ---
Nursing Care Hours: [id number] Pt this shift alert and oriented to self. Uncertain of date and stated we are at [facility]. VSS. Pain tolerated per pt. Sponge bath done, gown changed. Wicking towels under abdomen, effective. Incontinent void changed x2. Insulin given per sliding scale. Held 5units scheduled this morning d/t BS WNL and eating little amount for breakfast. Walked barlow x1.
--- NOTE | 2024-04-19 18:21 | PC.NURSE ---
End of shift [id number]: Pt alert and oriented to self. Pt denies pain. Insulin sliding scale held per BG. 5 scheduled units given at dinner. A1 GB W. Tolerating diet/fluids well. Pt appears watching television with call light in reach.
[2024-04-19] MEDS: INSULIN GLARGINE,HUM.REC.ANLOG 100 UNIT/ML INSULN.PEN 25 UNIT SUBCUT (21:10)
[2024-04-19] MEDS: SODIUM CHLORIDE 0.9 % (FLUSH) 10 ML SYRINGE 5 ML IVF (21:14)
[2024-04-20] VITALS (8 sets, daily range): BP systolic 142–164; BP diastolic 54–80; PULSE 60–74; RESP 18–20; TEMP 36.7–37; O2SAT 96–97
[2024-04-20 06:55] LABS: Chloride* 103 mmol/L (96-114); Sodium* 136 mmol/L (135-149)
[2024-04-20 06:58] LABS: Anion Gap 8 mEq/L (7-15); Blood Urea Nitrogen* 20 mg/dL (7-30); Carbon Dioxide* 25 mmol/L (20-32); Creatinine* 1.1 mg/dL (0.5-1.5); Est. Creatinine Clearance* 44.66; Estimated Glomerular Filt Rate 55 ml/min; Glucose* 174 mg/dL (60-115)
[2024-04-20 06:59] LABS: Calcium* 8.6 mg/dL (8.4-10.6)
--- NOTE | 2024-04-20 07:16 | PC.NURSE ---
shift note: vss stable. 1/walker to bathroom. incont urine.
[2024-04-20] MEDS: LACTOBACILLUS ACIDOPHILUS 1 TABLET 1 TAB PO ×3 (07:59→16:55)
[2024-04-20] MEDS: INSULIN ASPART 100 UNIT/ML SUBCUT ×6 (07:59→21:27)
[2024-04-20] MEDS: AMLODIPINE 10 MG TABLET PO (09:13)
[2024-04-20] MEDS: NYSTATIN POWDER 1 APPLIC TOPICAL ×2 (09:14→21:25)
[2024-04-20] MEDS: ASPIRIN 81 MG TABLET EC PO (09:14)
[2024-04-20] MEDS: NYSTATIN 500,000 UNIT/5 ML 500000 UNIT SWISH/SWAL ×4 (09:14→21:25)
[2024-04-20] MEDS: APIXABAN 5 MG TABLET PO ×2 (09:14→21:25)
[2024-04-20] MEDS: ATORVASTATIN CALCIUM 40 MG TABLET PO (09:14)
[2024-04-20] MEDS: SENNOSIDES/DOCUSATE TABLET 1 TAB PO ×2 (09:14→21:25)
[2024-04-20] MEDS: carvediloL 6.25 MG TABLET 12.5 MG PO ×2 (09:14→21:25)
[2024-04-20] MEDS: THIAMINE 100 MG TABLET PO (09:14)
[2024-04-20] MEDS: SODIUM CHLORIDE 0.9 % (FLUSH) 10 ML SYRINGE 5 ML IVF ×2 (09:17→21:26)
[2024-04-20] MEDS: FLUOXETINE HCL 10 MG CAPSULE PO (09:58)
--- NOTE | 2024-04-20 12:27 | PC.SOCIAL ---
Addendum entered by JADA Dennison 04/20/24 16:36: Discharge planning: lunchroom worker spoke to pt's daughter, Oscar, and asked if someone in her family or a friend would be able to transport the pt to [facility] when she is ready for discharge and Oscar stated that if it's tomorrow she does not think her dad will be able to with the snow that we are supposed to get so she would have to work on finding someone else to transport, but she didn't want to do that until the prior authorization with pt's [employer] insurance was approved. Social work to follow-up as needed. Addendum entered by JADA Dennison 04/20/24 14:11: Discharge planning: lunchroom worker left a message on pt's daughter's phone to update her about the information below. lunchroom worker also sent pt's daughter an email at [email or web address]. Social work to follow-up as needed. Original Note: Discharge planning: Pt was offered a shared room/shared bathroom at [facility] in [place] this morning. Pt will accept the room. Austyn with [facility] [employer] stated that he will need to submit a prior authorization with pt's insurance which is [employer]. lunchroom worker is waiting to hear back from Austyn with the result of the prior authorization from [employer] before the pt can be discharged from the hospital. Social work to follow-up as needed.
--- NOTE | 2024-04-20 15:28 | PM.IMPN1 ---
Progress Note: A&P Assessment and plan (1) Spell of altered consciousness: Problem details: - on 04/14, patient had a spell lasting less than an hour with apparent confusion and inability to communicate verbally, stroke code called - reassuring CT/CTA head - MRI 04/15 with results below - reviewed with Dr. Kirkland of Stroke Neurology who felt that these findings were too small to cause the symptoms 04/14 or to require significant intervention - therapies following, SNF recommended - concerned that these episodes may represent TIAs or seizure Impression: 1. Small acute ischemic infarcts in the right thalamus and left cerebellum. Subacute ischemic infarct in the right parasagittal parietal cortex. 2. Chronic right cerebellar infarcts. Chronic ischemic infarct in the left occipital lobe and right frontal lobe periventricular white matter. 3. Disproportionate enlargement of the ventricles with respect to sulci raises the possibility of normal pressure hydrocephalus. 4. Moderate supratentorial and infratentorial chronic small-vessel ischemic changes. Status: Acute (2) CVA (cerebral vascular accident): Problem details: - 2010, multiple - MRI 04/15/24 reveals the following: - therapies following Impression: 1. Small acute ischemic infarcts in the right thalamus and left cerebellum. Subacute ischemic infarct in the right parasagittal parietal cortex. 2. Chronic right cerebellar infarcts. Chronic ischemic infarct in the left occipital lobe and right frontal lobe periventricular white matter. 3. Disproportionate enlargement of the ventricles with respect to sulci raises the possibility of normal pressure hydrocephalus. 4. Moderate supratentorial and infratentorial chronic small-vessel ischemic changes. Status: Acute (3) Cognitive impairment: Problem details: - presented acutely confused 04/14/24 - memory loss over the past 1-2 years; MOCA in June of 2022 - has seen Neuropsych (01/10) and stroke Neurology as an outpatient (query vascular dementia) - appears to be having evolving cognitive loss - patient appears to have had more cognitive decline since last stay, appreciate assistance from OT/PT/SW Status: Acute (4) Candidal intertrigo: Problem details: - also has oral thrush 04/14/24; treat with 3 days of Diflucan 200mg orally + topical clotrimazole and Nystatin swish and swallow Status: Acute (5) Insulin dependent diabetes mellitus: Problem details: - A1C 9.0 on 03/25/24, continuing home insulin during stay + SSI - 3/ POC glucoses variable: 68-280s, decrease LA insulin slightly, halve mealtime insulin and increase ISS - 3/ POC glucoses still variable: continue current regimen and follow Status: Chronic (6) Elevated troponin: Problem details: - mild, no chest pain (+ nausea) - peak at 0.08, repeat TTE has been ordered for 04/15 given concern for CVA. TTE 04/15/2024 demonstrates the followin. Normal LV chamber size, mild increased wall thickness, normal systolic function, EF 67% 2. Mild concentric LVH with grade 1 pattern of LV diastolic filling 3. Mild enlarged left atrium with increased left atrial pressure 4. Normal RV chamber size and function 5. Functioning 21 mm Inspiris bioprosthesis AVR with no stenosis or regurgitation 6. Sclerotic mitral valve, mild mitral regurgitation, mild mitral stenosis 7. Normal tricuspid valve with trace tricuspid regurgitation 8. Negative bubble study - TTE 01/2024 with results below: Final Impressions: 1. Technically limited exam. 2. Normal left ventricular size, normal wall thickness, normal global systolic function, calculated EF of 64 %. 3. The aortic valve is functioning 21 mm Inspiris bioprosthesis AVR, no stenosis and no regurgitation. There is trivial paravalvular regurgitation. The aortic valve peak velocity is 2.6 m/s, the peak gradient is 27 mmHg, and the mean gradient is 15 mmHg. 4. The mitral valve is sclerotic, mild mitral regurgitation. 5. Mild-moderate tricuspid regurgitation. 6. Elevated estimated pulmonary pressures by tricuspid regurgitation velocity and right atrial pressure (33 mmHg plus RAP). 7. Echo contrast was administered to enhance visualization of all left ventricular segments. Status: Acute (7) Paroxysmal atrial fibrillation: Problem details: - thought to be cause of previous embolic stroke - chronically anticoagulated with warfarin with INR goal of 2-3 (subtherapeutic INR 04/13, bridging with Lovenox) - > transitioned to Apixaban on 04/14, continue - continue home dose of carvedilol for rate control Status: Acute (8) Chronic anticoagulation: Problem details: - for history of embolic stroke due to atrial fibrillation, also remote h/o DVT - transitioned to Apixaban from warfarin 04/14/24, continue Status: Acute (9) Noncompliance with medication regimen: Problem details: - noted to have subtherapeutic INR and hyperglycemia on admission, concern for not managing home medications well - transitioned to Apixaban 04/14/24 - will likely require longterm SNF placement upon d/c - patient agreeable as of 04/16/2024 and daughter concurs Status: Acute (10) Anemia: Problem details: - chronic, normocytic, unclear etiology, has received outpatient iron infusions with PCP - continue oral iron supplementation d/c - reassuring colonoscopy 01/[address] Ritter - baseline Hg 11, with Hg 10.5 on 04/15/24 - 3/ stable around 10 Status: Acute (11) Vomiting: Problem details: - noted after episode of AMS 04/14, reassuring Ct A/P - symptoms resolved 04/15, tolerating diet Status: Resolved (12) Diarrhea: Problem details: - noted during OT 04/15/24 - adding probiotics, C-Diff is negative as of 04/14/2024 Status: Resolved (13) Acute kidney injury: Problem details: - 3 creatinine 2.8 up from baseline of 0.7 on admission. BUN not elevated. Patient has Nina catheter in place, no evidence of lower obstruction. No evidence of hypotension. I have reviewed her medications and will hold furosemide and lisinopril. She did already get her doses of that this morning. Will also give IV fluids overnight and recheck in the morning. May need renal ultrasound or further investigation. - 3 Cr stable at 2.8 after IVF bolus and maintenance overnight. Renal US unremarkable. Urine in catheter has sediment - check UA (last one was on 04/14/24). Continue IVF at 75 cc/hr overnight yet, continue to hold lisinopril and furosemide. Recheck Cr in am. - 3/3 improving. Creatinine down to 2. Stop IV fluids, monitor. Continue to hold lisinopril and furosemide. I spoke with pharmacy - brief Cr elevation may have been from diflucan. - 3/ Resolved. Cr 1.1 Status: Resolved Plan - Awaiting SNF placment Subjective Time Seen by Provider: 07:57 Date Seen: 04/20/24 Interval history: Amparo feels well. She has no complaints. Exam Narrative: Exam Narrative: General: No acute distress. Awake, alert, oriented. No pallor. No jaundice. Oropharynx: Clear. Mucous membranes moist. Cardiovascular: Regular rate and rhythm. No murmurs, gallops, or rubs. Respiratory: Clear to auscultation bilaterally. No wheezes or crackles. Abdomen: Bowel sounds present. Soft, nondistended, nontender. Const: Vital Signs, click to edit/add: Vital Signs - 24 hr 04/19/24 19:48 04/19/24 22:46 04/19/24 23:00 Temperature 98.2 F 98.4 F Pulse Rate 69 Pulse Rate [Right Pulse Oximeter] 76 70 Respiratory Rate 18 18 Blood Pressure [Le ft Arm] 162/73 H 146/60 H Blood Pressure [Ri ght Arm] Pulse Oximetry 96 94 Oxygen Delivery Me thod Room Air Room Air 04/19/24 23:00 04/20/24 03:00 04/20/24 07:06 Temperature 98.2 F Pulse Rate 71 Pulse Rate [Right Pulse Oximeter] 74 Respiratory Rate 18 Blood Pressure [Le ft Arm] 153/77 H Blood Pressure [Ri ght Arm] Pulse Oximetry 94 96 Oxygen Delivery Me thod Room Air 04/20/24 08:05 04/20/24 08:05 04/20/24 08:05 Temperature 98.6 F Pulse Rate Pulse Rate [Right Pulse Oximeter] 69 69 Respiratory Rate 18 18 Blood Pressure [Le ft Arm] Blood Pressure [Ri ght Arm] 157/71 H Pulse Oximetry 96 96 Oxygen Delivery Nv thod Room Air 04/20/24 11:53 04/20/24 14:44 Temperature 98.1 F Pulse Rate 67 Pulse Rate [Right Pulse Oximeter] 60 Respiratory Rate 18 Blood Pressure [Le ft Arm] Blood Pressure [Ri ght Arm] 155/54 H Pulse Oximetry 97 Oxygen Delivery Me thod Room Air Labs Labs: Laboratory Results - last 24 hr 04/20/24 06:21 Sodium 136 Potassium 4.0 Chloride 103 Carbon Dioxide 25 Anion Gap 8 BUN 20 Creatinine 1.1 Estimated Creat Clear 44.66 Estimated GFR 55 Glucose 174 H Calcium 8.6
--- NOTE | 2024-04-20 18:51 | PC.NURSE ---
Addendum entered by Tg Oneill RN 04/20/24 19:00: Blood sugars incorrect on previous note, blood sugars were 190, 132, 181. Original Note: End of Shift: Patient pleasant and cooperative. Patient vitally stable, lungs clear, BS WNL, IV SL and intact. Patient denies pain. Patient 1 assist/walker. Patient has been up in chair all day and has walked the halls. Patient uses the toilet but is also incontinent. Blood sugars 132, 152, 124.
[2024-04-20] MEDS: INSULIN GLARGINE,HUM.REC.ANLOG 100 UNIT/ML INSULN.PEN 25 UNIT SUBCUT (21:27)
[2024-04-21] VITALS (7 sets, daily range): BP systolic 139–164; BP diastolic 70–112; PULSE 65–72; RESP 16–20; TEMP 36.3–36.7; O2SAT 96–98
--- NOTE | 2024-04-21 05:13 | PC.NURSE ---
[id number] Pt slept well. ambulating with walker/SBA, tolerating activity very well. no new concerns
[2024-04-21] MEDS: carvediloL 6.25 MG TABLET 12.5 MG PO ×2 (09:41→21:15)
[2024-04-21] MEDS: FLUOXETINE HCL 10 MG CAPSULE PO (09:41)
[2024-04-21] MEDS: AMLODIPINE 10 MG TABLET PO (09:41)
[2024-04-21] MEDS: LACTOBACILLUS ACIDOPHILUS 1 TABLET 1 TAB PO ×2 (09:41→12:34)
[2024-04-21] MEDS: ATORVASTATIN CALCIUM 40 MG TABLET PO (09:41)
[2024-04-21] MEDS: SENNOSIDES/DOCUSATE TABLET 1 TAB PO ×2 (09:42→21:15)
[2024-04-21] MEDS: APIXABAN 5 MG TABLET PO ×2 (09:42→21:15)
[2024-04-21] MEDS: THIAMINE 100 MG TABLET PO (09:42)
[2024-04-21] MEDS: ASPIRIN 81 MG TABLET EC PO (09:42)
[2024-04-21] MEDS: SODIUM CHLORIDE 0.9 % (FLUSH) 10 ML SYRINGE 5 ML IVF ×2 (09:42→21:17)
[2024-04-21] MEDS: INSULIN ASPART 100 UNIT/ML SUBCUT ×4 (09:44→21:16)
[2024-04-21] MEDS: NYSTATIN 500,000 UNIT/5 ML 500000 UNIT SWISH/SWAL ×3 (09:50→21:15)
--- NOTE | 2024-04-21 12:00 | PC.NURSE ---
End of shift note: Patient was up in chair during this shift. Encouraged patient to lie in bed and elevate legs but she refused at this time. PIV in left forearm was patent and intact. Patient has a humerus fracture in left arm and complains of pain with movement but declined need for pain medication. BP was slightly elevated. AM pills given for this. Patient denies nausea and is tolerating a regular diet. No BM this shift. Was incontinent of urine X3. Patient was given a good hot shower this shift and was so appreciative of this. Pericare was completed and nystatin powder was applied. Vaginal and groin was reddened but appeared to be better than it had been. There was a cut noted in the crease of the labia and groin. No drainage noted. Lung sounds clear. Afebrile. Ambulated X2 this shift with SBA and walker. Patient pleasant. Takes pills whole with water. Unclear what discharge plan is at this time as insurance has been a hold up.
--- NOTE | 2024-04-21 13:31 | PC.SOCIAL ---
Discharge planning: Pt's [employer] insurance has denied coverage for a short term rehab stay. [facility] is evaluating her for admission as Medical Assistance Pending. [place] application and all proofs of income have already been submitted to [facility]. [employer] office at [facility] to reach out to pt's son, Jeffrey Borrego [phone] for financial questions, at dtr Oscar's request. yard warehouse worker to follow up as needed.
--- NOTE | 2024-04-21 13:34 | PM.IMPN1 ---
Progress Note: A&P Assessment and plan (1) Cognitive impairment: Problem details: - presented to ED acutely confused with increased weakness 04/14/24 - memory loss over the past 1-2 years; MOCA in June of 2022 - has seen Neuropsych (01/10) and stroke Neurology as an outpatient (query vascular dementia) - appears to be having evolving cognitive loss - patient appears to have had more cognitive decline since last stay - admitted for PT/OT, hospital social worker for discharge planning/placement needs Status: Acute (2) Spell of altered consciousness: Problem details: - on 04/14, following admission to floor, patient had a spell lasting less than an hour with apparent confusion and inability to communicate verbally, stroke code called - reassuring CT/CTA head - MRI 04/15 with results below - reviewed with Dr. Kirkland of Stroke Neurology who felt that these findings were too small to cause the symptoms 04/14 or to require significant intervention - therapies following, SNF recommended - concerned that these episodes may represent TIAs or seizure Impression: 1. Small acute ischemic infarcts in the right thalamus and left cerebellum. Subacute ischemic infarct in the right parasagittal parietal cortex. 2. Chronic right cerebellar infarcts. Chronic ischemic infarct in the left occipital lobe and right frontal lobe periventricular white matter. 3. Disproportionate enlargement of the ventricles with respect to sulci raises the possibility of normal pressure hydrocephalus. 4. Moderate supratentorial and infratentorial chronic small-vessel ischemic changes. Status: Acute (3) CVA (cerebral vascular accident): Problem details: - CT head 04/14/2024 without acute intracranial hemorrhage or mass effect - MRI 04/15/24 reveals the following: Impression: 1. Small acute ischemic infarcts in the right thalamus and left cerebellum. Subacute ischemic infarct in the right parasagittal parietal cortex. 2. Chronic right cerebellar infarcts. Chronic ischemic infarct in the left occipital lobe and right frontal lobe periventricular white matter. 3. Disproportionate enlargement of the ventricles with respect to sulci raises the possibility of normal pressure hydrocephalus. 4. Moderate supratentorial and infratentorial chronic small-vessel ischemic changes. - previous history CVA, 2010, multiple - therapies following Status: Acute (4) Insulin dependent diabetes mellitus: Problem details: - A1C 9.0 on 03/25/24, continuing home insulin during stay + SSI - 04/17 POC glucoses variable: 68-280s, decrease LA insulin slightly, halve mealtime insulin and increase ISS - 3/2 POC glucoses still variable: continue current regimen and follow Status: Chronic (5) Elevated troponin: Problem details: - mild, no chest pain (+ nausea) - peak at 0.08, repeat TTE has been ordered for 04/15 given concern for CVA. TTE 04/15/2024 demonstrates the followin. Normal LV chamber size, mild increased wall thickness, normal systolic function, EF 67% 2. Mild concentric LVH with grade 1 pattern of LV diastolic filling 3. Mild enlarged left atrium with increased left atrial pressure 4. Normal RV chamber size and function 5. Functioning 21 mm Inspiris bioprosthesis AVR with no stenosis or regurgitation 6. Sclerotic mitral valve, mild mitral regurgitation, mild mitral stenosis 7. Normal tricuspid valve with trace tricuspid regurgitation 8. Negative bubble study - TTE 01/2024 with results below: Final Impressions: 1. Technically limited exam. 2. Normal left ventricular size, normal wall thickness, normal global systolic function, calculated EF of 64 %. 3. The aortic valve is functioning 21 mm Inspiris bioprosthesis AVR, no stenosis and no regurgitation. There is trivial paravalvular regurgitation. The aortic valve peak velocity is 2.6 m/s, the peak gradient is 27 mmHg, and the mean gradient is 15 mmHg. 4. The mitral valve is sclerotic, mild mitral regurgitation. 5. Mild-moderate tricuspid regurgitation. 6. Elevated estimated pulmonary pressures by tricuspid regurgitation velocity and right atrial pressure (33 mmHg plus RAP). 7. Echo contrast was administered to enhance visualization of all left ventricular segments. Status: Acute (6) Paroxysmal atrial fibrillation: Problem details: - thought to be cause of previous embolic stroke - chronically anticoagulated with warfarin with INR goal of 2-3 (subtherapeutic INR 04/13, bridging with Lovenox) - > transitioned to Apixaban on 04/14, continue - continue home dose of carvedilol for rate control Status: Acute (7) Chronic anticoagulation: Problem details: - for history of embolic stroke due to atrial fibrillation, also remote h/o DVT - transitioned to Apixaban from warfarin 04/14/24, continue Status: Acute (8) Noncompliance with medication regimen: Problem details: - noted to have subtherapeutic INR and hyperglycemia on admission, concern for not managing home medications well - transitioned to Apixaban 04/14/24 - will likely require intermediate school teacher SNF placement upon d/c - patient agreeable as of 04/16/2024 and daughter concurs Status: Acute (9) Anemia: Problem details: - chronic, normocytic, unclear etiology, has received outpatient iron infusions with PCP - continue oral iron supplementation d/c - reassuring colonoscopy 01/[address] Ritter - baseline Hg 11, with Hg 10.5 on 04/15/24 - 3/ stable around 10 Status: Acute (10) Vomiting: Problem details: - noted after episode of AMS 04/14, reassuring Ct A/P - symptoms resolved 04/15, tolerating diet Status: Resolved (11) Diarrhea: Problem details: - noted during OT 04/15/24 - adding probiotics, C-Diff is negative as of 04/14/2024 Status: Resolved (12) Acute kidney injury: Problem details: - 3/ creatinine 2.8 up from baseline of 0.7 on admission. BUN not elevated. Patient has Nina catheter in place, no evidence of lower obstruction. No evidence of hypotension. I have reviewed her medications and will hold furosemide and lisinopril. She did already get her doses of that this morning. Will also give IV fluids overnight and recheck in the morning. May need renal ultrasound or further investigation. - 3/ Cr stable at 2.8 after IVF bolus and maintenance overnight. Renal US unremarkable. Urine in catheter has sediment - check UA (last one was on 04/14/24). Continue IVF at 75 cc/hr overnight yet, continue to hold lisinopril and furosemide. Recheck Cr in am. - 3/3 improving. Creatinine down to 2. Stop IV fluids, monitor. Continue to hold lisinopril and furosemide. I spoke with pharmacy - brief Cr elevation may have been from diflucan. - 3/4 Resolved. Cr 1.1 Status: Resolved (13) Candidal intertrigo: Problem details: - also has oral thrush 04/14/24; treat with 3 days of Diflucan 200mg orally + topical clotrimazole and Nystatin swish and swallow Status: Resolved Plan Medically stable. Concern for medication noncompliance resulting in complications leading to hospitalization. Awaiting placement. Time Spent With Patient Total time spent: Today I spent 45 minutes seeing the patient, discussing the patient with ER staff, reviewing Expanse and Epic notes/diagnostics, discussing the care plan with our team that includes social work, PT/OT, pharmacy, RT, senior living and documenting my impressions and plan in the medical record. Subjective Date Seen: 04/21/24 Interval history: Patient is seen sitting up in bed this morning, nurse at bedside. Has no complaints. Feeling better but dreading having to go to rehab. Denies headache or dizziness. Denies chest pain or shortness of breath. Tolerating orals without nausea vomiting. Remains afebrile, vitally stable. Awaiting placement. Exam Narrative: Exam Narrative: PHYSICAL EXAM General: Pleasant, conversant, NAD HEENT: Normocephalic, atraumatic, sclera white, EOMI, oral mucosa moist Cardiovascular: RRR, S1S2. +3 pitting edema Pulmonary: CTA bilaterally without rhonchi, rales, expiratory wheezes. No dyspnea on RA Neurological: Alert, answering questions appropriately, cranial nerves intact, no focal findings Extremities: No gross joint deformity or swelling. AROMI. Neurovascularly intact Skin: Warm, dry. Const: Vital Signs, click to edit/add: Vital Signs - 24 hr 04/20/24 14:44 04/20/24 15:52 04/20/24 15:52 Temperature 98.4 F Pulse Rate 67 Pulse Rate [Right Pulse Oximeter] 64 Respiratory Rate 18 Blood Pressure [Ri ght Arm] 164/79 H Pulse Oximetry 97 97 Oxygen Delivery Me thod Room Air 04/20/24 15:52 04/20/24 19:00 04/20/24 22:32 Temperature 98.6 F Pulse Rate Pulse Rate [Right Pulse Oximeter] 64 69 Respiratory Rate 18 18 Blood Pressure [Ri ght Arm] 142/80 H Pulse Oximetry 96 97 Oxygen Delivery Me thod Room Air 04/20/24 22:32 04/21/24 03:00 04/21/24 08:45 Temperature 98.6 F 98.1 F Pulse Rate Pulse Rate [Right Pulse Oximeter] 69 70 Respiratory Rate 20 16 16 Blood Pressure [Ri ght Arm] 162/70 H 139/112 H Pulse Oximetry 97 97 Oxygen Delivery Me thod Room Air Room Air 04/21/24 09:53 04/21/24 11:37 Temperature 97.9 F Pulse Rate Pulse Rate [Right Pulse Oximeter] 69 Respiratory Rate 16 Blood Pressure [Ri ght Arm] 152/70 H Pulse Oximetry 96 97 Oxygen Delivery Me thod Room Air
--- NOTE | 2024-04-21 15:12 | PC.SOCIAL ---
Discharge planning: Spoke with dtr by phone who states she has spoken with the patient and the patient wants to go home with home care instead of to a usp facility for buttermaker helper care under Medical Assistance Pending. Called [facility] and confirmed pt is currently on service with [facility] for nursing, PT/OT and home health aid. Pt had recently declined the home health aid but can be reassessed for this at discharge. [facility] has availability to resume services for pt on Friday04/26/24 if discharged tomorrow. [facility] worker to follow up as needed. Called [employer] [employer] vulnerable adult worker [phone] who states she needs to see pt's home to assess safety prior to discharge. So, she will schedule to visit pt's home tomorrow morning and will let social services know the results of her home assessment prior to discharge. [facility] worker to follow up as needed.
[2024-04-21] MEDS: INSULIN GLARGINE,HUM.REC.ANLOG 100 UNIT/ML INSULN.PEN 25 UNIT SUBCUT (21:16)
[2024-04-21] MEDS: NYSTATIN POWDER 1 APPLIC TOPICAL (21:17)
--- NOTE | 2024-04-21 23:05 | PC.NURSE ---
19-23: Pt alert, oriented to self and situation and hypertensive, otherwise vitally stable. Pt has periods of forgetfulness and doesn't use call lights appropriately. Pt in wheelchair for majority of shift, states this is more comfortable than the bed or chair while awake. Pt attempted to use the bathroom and change without staff assistance, pt pulled shower cord and staff responded. Pt standing in doorway, staff redirected and assisted pt to change. Pt incontinent. Able to take pills whole. In the chair for sleep, call light within reach and alarms on. ?
[2024-04-22 03:45] VITALS: RESP 19
--- NOTE | 2024-04-22 06:31 | PC.NURSE ---
End of shift summary: Pt has been alert & oriented to self and situation. She?s been VSS and afebrile overnight. SBA with rolling walker for transfers. Incontinent & continent of urine overnight, no BM this shift. Pt slept in the chair with call light within reach and chair alarm in place. She was call light appropriate overnight and did not attempt to self transfer. She had c/o her left shoulder being ?tender and stiff? 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 PIV in left wrist SL and covered w/ [employer] project manager. Denies nausea or dizziness this shift.??
[2024-04-22 07:00] VITALS: BP 155/86; PULSE 70; RESP 18; TEMP 36.6; O2SAT 97
--- NOTE | 2024-04-22 07:32 | P.IMPN_ITS ---
Progress Note: A&P Assessment and plan (1) Cognitive impairment: Problem details: - presented to ED acutely confused with increased weakness 04/14/24 - memory loss over the past 1-2 years; MOCA in June of 2022 - has seen Neuropsych (01/10) and stroke Neurology as an outpatient (query vas cular dementia) - appears to be having evolving cognitive loss - patient appears to have had more cognitive decline since last stay - admitted for PT/OT - social welfare administrator for discharge planning/placement needs. Currently working with [facility] for SNF placement. 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 Although this degree of memory and executive dysfunction undermine her safety and independence in daily life, it is important to note that she is still capable of living in her home with the additional supports. She is not safe to independently manage her medications/insulin, finances and personal affairs, or independently navigate the community/drive. Status: Acute (3) Spell of altered consciousness: Problem details: - on 04/14, following admission to floor, patient had a spell lasting less than an hour with apparent confusion and inability to communicate verbally, stroke code called - reassuring CT/CTA head - MRI 04/15 with results below - reviewed with Dr. Kirkland of Stroke Neurology who felt that these findings were too small to cause the symptoms 04/14 or to require significant intervention - therapies following, SNF recommended - concerned that these episodes may represent TIAs or seizure Impression: 1. Small acute ischemic infarcts in the right thalamus and left cerebellum. Subacute ischemic infarct in the right parasagittal parietal cortex. 2. Chronic right cerebellar infarcts. Chronic ischemic infarct in the left occipital lobe and right frontal lobe periventricular white matter. 3. Disproportionate enlargement of the ventricles with respect to sulci raises the possibility of normal pressure hydrocephalus. 4. Moderate supratentorial and infratentorial chronic small-vessel ischemic changes. Status: Acute (4) CVA (cerebral vascular accident): Problem details: - CT head 04/14/2024 without acute intracranial hemorrhage or mass effect - MRI 04/15/24 as above - previous history CVA, 2010, multiple - therapies following - discussed risk for recurrent strokes in setting of medication noncompliance Status: Acute (5) Insulin dependent diabetes mellitus: Problem details: - A1C 9.0 on 03/25/24, continuing home insulin during stay + SSI - 04/17 POC glucoses variable: 68-280s, decrease LA insulin slightly, halve mealtime insulin and increase ISS - 04/18 POC glucoses still variable: continue current regimen and follow - 04/22 Adjusted dinnertime aspart to reflect glucose >200 around 2100pm nightly - discussed risks of poorly managed diabetes mellitus in setting of medication noncompliance Status: Chronic (6) Elevated troponin: Problem details: - mild, no chest pain (+ nausea) - peak at 0.08, repeat TTE has been ordered for 04/15 given concern for CVA. TTE 04/15/2024 demonstrates the followin. Normal LV chamber size, mild increased wall thickness, normal systolic function, EF 67% 2. Mild concentric LVH with grade 1 pattern of LV diastolic filling 3. Mild enlarged left atrium with increased left atrial pressure 4. Normal RV chamber size and function 5. Functioning 21 mm Inspiris bioprosthesis AVR with no stenosis or regurgitation 6. Sclerotic mitral valve, mild mitral regurgitation, mild mitral stenosis 7. Normal tricuspid valve with trace tricuspid regurgitation 8. Negative bubble study - TTE 01/2024 with results below: Final Impressions: 1. Technically limited exam. 2. Normal left ventricular size, normal wall thickness, normal global systolic function, calculated EF of 64 %. 3. The aortic valve is functioning 21 mm Inspiris bioprosthesis AVR, no stenosis and no regurgitation. There is trivial paravalvular regurgitation. The aortic valve peak velocity is 2.6 m/s, the peak gradient is 27 mmHg, and the mean gradient is 15 mmHg. 4. The mitral valve is sclerotic, mild mitral regurgitation. 5. Mild-moderate tricuspid regurgitation. 6. Elevated estimated pulmonary pressures by tricuspid regurgitation velocity and right atrial pressure (33 mmHg plus RAP). 7. Echo contrast was administered to enhance visualization of all left ventricular segments. Status: Acute (7) Paroxysmal atrial fibrillation: Problem details: - thought to be cause of previous embolic stroke - chronically anticoagulated with warfarin with INR goal of 2-3 (subtherapeutic INR 04/13, bridging with Lovenox) - > transitioned to Apixaban on 04/14, continue - continue home dose of carvedilol for rate control - discussed risks of poorly managed AFib, RVR, stroke, SC in setting of medication noncompliance Status: Acute (8) Chronic anticoagulation: Problem details: - for history of embolic stroke due to atrial fibrillation, also remote h/o DVT - transitioned to Apixaban from warfarin 04/14/24, continue - DOAC good choice for her in setting of medication noncompliance as will not need to follow INR nor adjust dosing Status: Acute (9) Noncompliance with medication regimen: Problem details: - noted to have subtherapeutic INR and hyperglycemia on admission, concern for not managing home medications well - transitioned to Apixaban 04/14/24 - will likely require senior care SNF placement upon d/c - patient agreeable as of 04/16/2024 and daughter concurs Status: Acute (10) Anemia: Problem details: - chronic, normocytic, unclear etiology, has received outpatient iron infusions with PCP - continue oral iron supplementation d/c - reassuring colonoscopy 01/[address] Ritter - baseline Hg 11, with Hg 10.5 on 04/15/24 - 3/ stable around 10 Status: Acute (11) Vomiting: Problem details: - noted after episode of AMS 04/14, reassuring Ct A/P - symptoms resolved 04/15, tolerating diet Status: Resolved (12) Diarrhea: Problem details: - noted during OT 04/15/24 - adding probiotics, C-Diff is negative as of 04/14/2024 Status: Resolved (13) Acute kidney injury: Problem details: - 3 creatinine 2.8 up from baseline of 0.7 on admission. BUN not elevated. Patient has Nina catheter in place, no evidence of lower obstruction. No evidence of hypotension. I have reviewed her medications and will hold furosemide and lisinopril. She did already get her doses of that this morning. Will also give IV fluids overnight and recheck in the morning. May need renal ultrasound or further investigation. - 3/ Cr stable at 2.8 after IVF bolus and maintenance overnight. Renal US unremarkable. Urine in catheter has sediment - check UA (last one was on 04/14/24). Continue IVF at 75 cc/hr overnight yet, continue to hold lisinopril and furosemide. Recheck Cr in am. - 3/3 improving. Creatinine down to 2. Stop IV fluids, monitor. Continue to hold lisinopril and furosemide. I spoke with pharmacy - brief Cr elevation may have been from diflucan. - 3/4 Resolved. Cr 1.1 Status: Resolved (14) Candidal intertrigo: Problem details: - also has oral thrush 04/14/24; treat with 3 days of Diflucan 200mg orally + topical clotrimazole and Nystatin swish and swallow Status: Resolved Plan Medically stable. Concern for medication noncompliance resulting in complications leading to hospitalization. Awaiting placement, possibly [facility]. Time Spent With Patient Total time spent: Today I spent 45 minutes seeing the patient, discussing the patient with ER staff, reviewing Expanse and Epic notes/diagnostics, discussing the care plan with our team that includes social work, PT/OT, pharmacy, RT, correction and documenting my impressions and plan in the medical record. Subjective Date Seen: 04/22/24 Interval history: Patient is seen sitting up in a chair this morning. When asked if we should have her daughter joined us via cell phone she tells me that her daughter works overnight and she would rather not wake her. Tells me she will pass along any information discussed this morning. We talked about patient's needs following this hospital stay. [facility] has rejected her need for rehab. Patient has done well with physical therapy. We reviewed her neurocognitive testing in December which documents concerns for her being able to manage her medications and finances. We discussed how noncompliance with medications can lead to further medical complications including rehospitalization. She is currently living with her who has advanced cognitive impairment. We discussed that our recommendations is that she move into a long-term care facility where different support levels may be offered for her and her , including increasing services as needed. We also discussed she needs to get her legal need in order, including appointing someone to support her in her healthcare decision making as well as financial decision maker. She tells me she will discuss this with with her daughter and have a family meeting to get these in order. Exam Narrative: Exam Narrative: PHYSICAL EXAM General: Pleasant, conversant, NAD Cardiovascular: RRR, S1S2. +3 pitting edema Pulmonary: CTA bilaterally without rhonchi, rales, expiratory wheezes. No dyspnea on RA Neurological: Alert, answering questions appropriately, cranial nerves intact, no focal findings Extremities: No gross joint deformity or swelling. AROMI. Neurovascularly intact Skin: Warm, dry. Const: Vital Signs, click to edit/add: Vital Signs - 24 hr 04/21/24 08:45 04/21/24 09:53 04/21/24 11:37 Temperature 98.1 F 97.9 F Pulse Rate [Right Pulse Oximeter] 70 69 Respiratory Rate 16 16 Blood Pressure [Ri ght Arm] 139/112 H 152/70 H Pulse Oximetry 97 96 97 Oxygen Delivery Me thod Room Air Room Air 04/21/24 14:38 04/21/24 19:00 04/21/24 23:30 Temperature 97.8 F 97.3 F L Pulse Rate [Right Pulse Oximeter] 69 72 65 Respiratory Rate 16 18 20 Blood Pressure [Ri ght Arm] 150/80 H 163/89 H Pulse Oximetry 97 98 Oxygen Delivery Me thod Room Air Room Air 04/21/24 23:30 04/22/24 03:45 Temperature 97.4 F L Pulse Rate [Right Pulse Oximeter] 65 Respiratory Rate 20 19 Blood Pressure [Ri ght Arm] 164/78 H Pulse Oximetry 98 Oxygen Delivery Me thod Room Air
[2024-04-22] MEDS: ASPIRIN 81 MG TABLET EC PO (08:43)
[2024-04-22] MEDS: APIXABAN 5 MG TABLET PO ×2 (08:44→22:07)
[2024-04-22] MEDS: THIAMINE 100 MG TABLET PO (08:45)
[2024-04-22] MEDS: INSULIN ASPART 100 UNIT/ML SUBCUT ×5 (08:45→22:10)
[2024-04-22] MEDS: AMLODIPINE 10 MG TABLET PO (08:45)
[2024-04-22] MEDS: ATORVASTATIN CALCIUM 40 MG TABLET PO (08:45)
[2024-04-22] MEDS: LACTOBACILLUS ACIDOPHILUS 1 TABLET 1 TAB PO ×3 (08:45→18:24)
[2024-04-22] MEDS: NYSTATIN 500,000 UNIT/5 ML 500000 UNIT SWISH/SWAL ×4 (08:45→22:07)
[2024-04-22] MEDS: carvediloL 6.25 MG TABLET 12.5 MG PO ×2 (08:45→22:06)
[2024-04-22] MEDS: FLUOXETINE HCL 10 MG CAPSULE PO (08:45)
[2024-04-22] MEDS: SODIUM CHLORIDE 0.9 % (FLUSH) 10 ML SYRINGE 5 ML IVF ×2 (08:50→22:12)
[2024-04-22 12:35] VITALS: BP 152/66; PULSE 66; RESP 18; TEMP 36.3; O2SAT 98
[2024-04-22 15:00] VITALS: BP 151/89; PULSE 69; RESP 18; TEMP 36.7; O2SAT 98
[2024-04-22] MEDS: INSULIN ASPART 100 UNIT/ML 8 UNIT SUBCUT (18:25)
--- NOTE | 2024-04-22 18:45 | PC.NURSE ---
End of shift-- Pleasant and cooperative, alert and oriented, but forgetful, patient. Pt did become frustrated with her unchanging situation this afternoon and stated that she was just tired of it. Pt was reassured and mood appeared improved. VSS and pt is afebrile. SPO2 maintained >90% on RA. She c/o skin pain this morning, but stated that it was mild and tolerable and declined intervention. Reddened skin folds appear greatly improved. LS CTA. She denied nausea and ate 100% of 3 meals today. She was up to the BR with SBA and walker and tolerated it well.
[2024-04-22 20:29] VITALS: BP 152/72; PULSE 49; RESP 18; O2SAT 97
[2024-04-22] MEDS: SENNOSIDES/DOCUSATE TABLET 1 TAB PO (22:06)
[2024-04-22] MEDS: NYSTATIN POWDER 1 APPLIC TOPICAL (22:08)
[2024-04-22] MEDS: INSULIN GLARGINE,HUM.REC.ANLOG 100 UNIT/ML INSULN.PEN 25 UNIT SUBCUT (22:08)
[2024-04-22 23:00] VITALS: PULSE 65
[2024-04-23 03:50] VITALS: BP 188/82; PULSE 65; RESP 16; TEMP 36.4; O2SAT 95
--- NOTE | 2024-04-23 06:48 | PC.NURSE ---
Pt had a good night. Slept well in the chair up to BR x1 Independantly with standby assist. VSS. She is on RA.
[2024-04-23 07:00] VITALS: BP 166/85; PULSE 65; RESP 18; TEMP 36.6; O2SAT 98
[2024-04-23] MEDS: APIXABAN 5 MG TABLET PO ×2 (08:37→20:40)
[2024-04-23] MEDS: carvediloL 6.25 MG TABLET 12.5 MG PO ×2 (08:37→20:40)
[2024-04-23] MEDS: THIAMINE 100 MG TABLET PO (08:37)
[2024-04-23] MEDS: NYSTATIN 500,000 UNIT/5 ML 500000 UNIT SWISH/SWAL ×4 (08:37→20:41)
[2024-04-23] MEDS: SENNOSIDES/DOCUSATE TABLET 1 TAB PO (08:37)
[2024-04-23] MEDS: LACTOBACILLUS ACIDOPHILUS 1 TABLET 1 TAB PO ×2 (08:38→17:19)
[2024-04-23] MEDS: AMLODIPINE 10 MG TABLET PO (08:38)
[2024-04-23] MEDS: FLUOXETINE HCL 10 MG CAPSULE PO (08:38)
[2024-04-23] MEDS: ATORVASTATIN CALCIUM 40 MG TABLET PO (08:38)
[2024-04-23] MEDS: ASPIRIN 81 MG TABLET EC PO (08:38)
[2024-04-23] MEDS: INSULIN ASPART 100 UNIT/ML SUBCUT ×5 (08:42→20:42)
[2024-04-23 11:00] VITALS: BP 175/85; PULSE 66; RESP 18; TEMP 36.7; O2SAT 97
--- NOTE | 2024-04-23 12:48 | PM.IMPN1 ---
Progress Note: A&P Assessment and plan (1) Cognitive impairment: Problem details: - presented to ED acutely confused with increased weakness 04/14/24 - memory loss over the past 1-2 years; MOCA in June of 2022 - has seen Neuropsych (01/10) and stroke Neurology as an outpatient (query vascular dementia) - appears to be having evolving cognitive loss - patient appears to have had more cognitive decline since last stay - admitted for PT/OT - licensed clinical social worker for discharge planning/placement needs. Currently working with [facility] for SNF placement. Will need LTC at some point Status: Acute (2) Dementia: Problem details: -underwent formal neurocognitive testing at [facility] 12/22/23 -per EMR, psychologist diagnosed Unspecified Major Neurocognitive Disorder (i.e., Dementia due to Multiple Etiologies). Although this degree of memory and executive dysfunction undermine her safety and independence in daily life, it is important to note that she is still capable of living in her home with the additional supports. She is not safe to independently manage her medications/insulin, finances and personal affairs, or independently navigate the community/drive. Status: Acute (3) Spell of altered consciousness: Problem details: - on 04/14, following admission to floor, patient had a spell lasting less than an hour with apparent confusion and inability to communicate verbally, stroke code called - reassuring CT/CTA head - MRI 04/15 with results below - reviewed with Dr. Kirkland of Stroke Neurology who felt that these findings were too small to cause the symptoms 04/14 or to require significant intervention - therapies following, SNF recommended - concerned that these episodes may represent TIAs or seizure Impression: 1. Small acute ischemic infarcts in the right thalamus and left cerebellum. Subacute ischemic infarct in the right parasagittal parietal cortex. 2. Chronic right cerebellar infarcts. Chronic ischemic infarct in the left occipital lobe and right frontal lobe periventricular white matter. 3. Disproportionate enlargement of the ventricles with respect to sulci raises the possibility of normal pressure hydrocephalus. 4. Moderate supratentorial and infratentorial chronic small-vessel ischemic changes. Status: Acute (4) CVA (cerebral vascular accident): Problem details: - CT head 04/14/2024 without acute intracranial hemorrhage or mass effect - MRI 04/15/24 as above - previous history CVA, 2010, multiple - therapies following - discussed risk for recurrent strokes in setting of medication noncompliance Status: Acute (5) Insulin dependent diabetes mellitus: Problem details: - A1C 9.0 on 03/25/24, continuing home insulin during stay + SSI - 04/17 POC glucoses variable: 68-280s, decrease LA insulin slightly, halve mealtime insulin and increase ISS - 04/18 POC glucoses still variable: continue current regimen and follow - 04/22 Adjusted dinnertime aspart to reflect glucose >200 around 2100pm nightly - discussed risks of poorly managed diabetes mellitus in setting of medication noncompliance Status: Chronic (6) Elevated troponin: Problem details: - mild, no chest pain (+ nausea) - peak at 0.08, repeat TTE has been ordered for 04/15 given concern for CVA. TTE 04/15/2024 demonstrates the followin. Normal LV chamber size, mild increased wall thickness, normal systolic function, EF 67% 2. Mild concentric LVH with grade 1 pattern of LV diastolic filling 3. Mild enlarged left atrium with increased left atrial pressure 4. Normal RV chamber size and function 5. Functioning 21 mm Inspiris bioprosthesis AVR with no stenosis or regurgitation 6. Sclerotic mitral valve, mild mitral regurgitation, mild mitral stenosis 7. Normal tricuspid valve with trace tricuspid regurgitation 8. Negative bubble study - TTE 01/2024 with results below: Final Impressions: 1. Technically limited exam. 2. Normal left ventricular size, normal wall thickness, normal global systolic function, calculated EF of 64 %. 3. The aortic valve is functioning 21 mm Inspiris bioprosthesis AVR, no stenosis and no regurgitation. There is trivial paravalvular regurgitation. The aortic valve peak velocity is 2.6 m/s, the peak gradient is 27 mmHg, and the mean gradient is 15 mmHg. 4. The mitral valve is sclerotic, mild mitral regurgitation. 5. Mild-moderate tricuspid regurgitation. 6. Elevated estimated pulmonary pressures by tricuspid regurgitation velocity and right atrial pressure (33 mmHg plus RAP). 7. Echo contrast was administered to enhance visualization of all left ventricular segments. Status: Acute (7) Paroxysmal atrial fibrillation: Problem details: - thought to be cause of previous embolic stroke - chronically anticoagulated with warfarin with INR goal of 2-3 (subtherapeutic INR 04/13, bridging with Lovenox) - > transitioned to Apixaban on 04/14, continue - continue home dose of carvedilol for rate control - discussed risks of poorly managed AFib, RVR, stroke, NV in setting of medication noncompliance Status: Acute (8) Chronic anticoagulation: Problem details: - for history of embolic stroke due to atrial fibrillation, also remote h/o DVT - transitioned to Apixaban from warfarin 04/14/24, continue - DOAC good choice for her in setting of medication noncompliance as will not need to follow INR nor adjust dosing Status: Acute (9) Noncompliance with medication regimen: Problem details: - noted to have subtherapeutic INR and hyperglycemia on admission, concern for not managing home medications well - transitioned to Apixaban 04/14/24 - will likely require halfway SNF placement upon d/c - patient agreeable as of 04/16/2024 and daughter concurs Status: Acute (10) Anemia: Problem details: - chronic, normocytic, unclear etiology, has received outpatient iron infusions with PCP - continue oral iron supplementation d/c - reassuring colonoscopy 01/[address] Ritter - baseline Hg 11, with Hg 10.5 on 04/15/24 - 3/ stable around 10 Status: Acute (11) Vomiting: Problem details: - noted after episode of AMS 04/14, reassuring Ct A/P - symptoms resolved 04/15, tolerating diet Status: Resolved (12) Diarrhea: Problem details: - noted during OT 04/15/24 - adding probiotics, C-Diff is negative as of 04/14/2024 Status: Resolved (13) Acute kidney injury: Problem details: - 3/ creatinine 2.8 up from baseline of 0.7 on admission. BUN not elevated. Patient has Nina catheter in place, no evidence of lower obstruction. No evidence of hypotension. I have reviewed her medications and will hold furosemide and lisinopril. She did already get her doses of that this morning. Will also give IV fluids overnight and recheck in the morning. May need renal ultrasound or further investigation. - 3/ Cr stable at 2.8 after IVF bolus and maintenance overnight. Renal US unremarkable. Urine in catheter has sediment - check UA (last one was on 04/14/24). Continue IVF at 75 cc/hr overnight yet, continue to hold lisinopril and furosemide. Recheck Cr in am. - 3/3 improving. Creatinine down to 2. Stop IV fluids, monitor. Continue to hold lisinopril and furosemide. I spoke with pharmacy - brief Cr elevation may have been from diflucan. - 3/4 Resolved. Cr 1.1 Status: Resolved (14) Candidal intertrigo: Problem details: - also has oral thrush 04/14/24; treat with 3 days of Diflucan 200mg orally + topical clotrimazole and Nystatin swish and swallow Status: Resolved Plan Medically stable. Concern for medication noncompliance resulting in complications leading to hospitalization. Awaiting placement, possibly [facility]. Time Spent With Patient Total time spent: Today I spent 45 minutes seeing the patient, discussing the patient with ER staff, reviewing Expanse and Epic notes/diagnostics, discussing the care plan with our team that includes social work, PT/OT, pharmacy, RT, custodial and documenting my impressions and plan in the medical record. Subjective Date Seen: 04/23/24 Interval history: Patient is seen sitting up in a chair this morning, daughter, Oscar, on cell phone. We discussed with the daughter the same things we discussed yesterday. Patient is not safe to return home with who has what sounds like advanced cognitive impairment. Concern for medication noncompliance and outcomes related to this. Recommendations for SNF placement and eventually long-term care. Daughter will work on legal forms with her mom. Per director social, [facility] has requested another form to be filled out, awaiting placement. Exam Narrative: Exam Narrative: PHYSICAL EXAM General: Pleasant, conversant, NAD Cardiovascular: RRR Pulmonary: No dyspnea on RA Neurological: Alert, answering questions appropriately, cranial nerves intact, no focal findings Skin: Warm, dry. Const: Vital Signs, click to edit/add: Vital Signs - 24 hr 04/22/24 15:00 04/22/24 15:00 04/22/24 20:29 Temperature 98.0 F Pulse Rate [Right Pulse Oximeter] 69 69 49 L Respiratory Rate 18 18 18 Blood Pressure [Ri ght Arm] 151/89 H 152/72 H Pulse Oximetry 98 97 Oxygen Delivery Me thod Room Air Room Air 04/22/24 23:00 04/23/24 03:50 04/23/24 07:00 Temperature 97.5 F L 97.8 F Pulse Rate [Right Pulse Oximeter] 65 65 65 Respiratory Rate 16 18 Blood Pressure [Ri ght Arm] 188/82 H 166/85 H Pulse Oximetry 95 98 Oxygen Delivery Me thod Room Air Room Air
[2024-04-23] MEDS: NYSTATIN POWDER 1 APPLIC TOPICAL ×2 (12:52→20:46)
[2024-04-23] MEDS: SODIUM CHLORIDE 0.9 % (FLUSH) 10 ML SYRINGE 5 ML IVF ×2 (12:52→20:40)
[2024-04-23 13:11] VITALS: BMI 34.4
--- NOTE | 2024-04-23 16:46 | PC.SOCIAL ---
Discharge planning: Received message from Austyn in admissions at the [facility] that their financial department will not reach out to the family about their questions and need to speak with this social worker health services. Called and spoke with Norah in financial dept at [facility] who stated the facility has a bed and has medically accepted pt but are unable to accept pt for admit as Medical Assistance pending unless the DFAS form that shows 's income from the can be provided as proof of income for the Medical Assistance application. Provided family with the website and instructions for obtaining the DFAS form. Called Dave from [facility] who stated she is planning to go to the home to for a visit and to meet with family today. Dave states she can attempt to assist in obtaining this required DFAS form. Later, received a call from Dave who shared that was unable to print out form from the website as he could not remember his login or answers to the security questions. The account is now locked due to too many unsuccessful attempts. On Friday, there is a number for him to call to request the form be mailed to his home address. However, this will take 10-12 days to receive. Dave also stated the home was not safe for pt to return to as it needs to be decluttered and cleaned. Called [facility] and spoke with Norah in financial who stated she will see if there is any other proof of income, like a tax return from 2023 that could be used as proof as he has this completed already. Later spoke with Austyn in admissions at [facility] who states they can only accept the DFAS form as proof of income and will not accept the pt without this form being submitted. Called kushal Moore who had already spoken with [facility] worker and knows about this situation. She will help call on Friday to request the DFAS form be mailed and will ask if there is any quicker way to get this information. She states she has spoken with Dave about her concerns of the safety of the home and agrees that pt can not currently return to the home and needs to go to a facility from the hospital. She states she and family are going to get the house cleaned out and that pt could return there in the future. Kushal is aware that any facility willing to accept pt as Medical Assistance pending will likely be further away from [place], as [facility] is the only facility that will consider this nearby. Dtr states the location does not matter and what matters is finding a place for her to go covered by the Medical Assistance pending and able to meet pt's needs. easement worker to follow up as needed.
[2024-04-23] MEDS: INSULIN ASPART 100 UNIT/ML 8 UNIT SUBCUT (17:18)
[2024-04-23 18:11] VITALS: BP 163/75; PULSE 71; RESP 18; TEMP 36.8; O2SAT 96
--- NOTE | 2024-04-23 19:17 | PC.NURSE ---
End of shift [id number] ? Pt alert, oriented, cooperative. Slight recent memory impairment noted by RN. Up with standby assistance and walker/gait belt, observed to ambulate in halls with PT and visitors.?Continent of bladder during shift, tolerating RA and regular diet/fluids. Visitors at bedside during shift. Pt appears to be resting comfortably in chair with call light within reach.
[2024-04-23 19:36] VITALS: BP 128/66; PULSE 72; RESP 16; TEMP 36.6; O2SAT 97
--- NOTE | 2024-04-23 20:39 | PM.IMPN1 ---
Progress Note: A&P Assessment and plan (1) Dementia: Problem details: -underwent formal neurocognitive testing at [facility] 12/22/23 -per EMR, psychologist diagnosed Unspecified Major Neurocognitive Disorder (i.e., Dementia due to Multiple Etiologies). Although this degree of memory and executive dysfunction undermine her safety and independence in daily life, it is important to note that she is still capable of living in her home with the additional supports. She is not safe to independently manage her medications/insulin, finances and personal affairs, or independently navigate the community/drive. [place] score 17/30 on 04/16/2024. Scored 21/30 summer Status: Acute (2) Spell of altered consciousness: Problem details: - on 04/14, following admission to floor, patient had a spell lasting less than an hour with apparent confusion and inability to communicate verbally, stroke code called - reassuring CT/CTA head. Subsequently MRI showed multiple small acute infarcts noted below. Spell of altered consciousness clinically appeared more like vasovagal/neurocardiogenic syncope Status: Acute (3) CVA (cerebral vascular accident): Problem details: - CT head 04/14/2024 without acute intracranial hemorrhage or mass effect - MRI 04/15 with results below - reviewed with Dr. Kirkland of Stroke Neurology who felt that these findings were too small to cause the symptoms 04/14 or to require significant intervention - therapies following, SNF recommended - concerned that these episodes may represent TIAs or seizure Impression: 1. Small acute ischemic infarcts in the right thalamus and left cerebellum. Subacute ischemic infarct in the right parasagittal parietal cortex. 2. Chronic right cerebellar infarcts. Chronic ischemic infarct in the left occipital lobe and right frontal lobe periventricular white matter. 3. Disproportionate enlargement of the ventricles with respect to sulci raises the possibility of normal pressure hydrocephalus. 4. Moderate supratentorial and infratentorial chronic small-vessel ischemic changes. - previous history CVA, 2010, multiple - therapies following - discussed risk for recurrent strokes in setting of medication noncompliance Status: Acute (4) Acute kidney injury: Problem details: - 04/17 creatinine 2.8 up from baseline of 0.7 on admission. BUN not elevated. Patient has Nina catheter in place, no evidence of lower obstruction. No evidence of hypotension. I have reviewed her medications and will hold furosemide and lisinopril. She did already get her doses of that this morning. Will also give IV fluids overnight and recheck in the morning. May need renal ultrasound or further investigation. - 3/2 Cr stable at 2.8 after IVF bolus and maintenance overnight. Renal US unremarkable. Urine in catheter has sediment - check UA (last one was on 04/14/24). Continue IVF at 75 cc/hr overnight yet, continue to hold lisinopril and furosemide. Recheck Cr in am. - 3/3 improving. Creatinine down to 2. Stop IV fluids, monitor. Continue to hold lisinopril and furosemide. I spoke with pharmacy - brief Cr elevation may have been from diflucan. - 3/4 Resolved. 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, also remote h/o DVT - transitioned to Apixaban from warfarin 04/14/24, continue - DOAC good choice for her in setting of medication noncompliance as will not need to follow INR nor adjust dosing Status: Acute (8) Vomiting: Problem details: - noted after episode of AMS 04/14, reassuring Ct A/P - symptoms resolved 04/15, tolerating diet Status: Resolved (9) Bladder incontinence: Problem details: Chronic Status: Chronic (10) Insulin dependent diabetes mellitus: Problem details: - A1C 9.0 on 03/25/24, continuing home insulin during stay + SSI - 04/17 POC glucoses variable: 68-280s, decrease LA insulin slightly, halve mealtime insulin and increase ISS - 04/18 POC glucoses still variable: continue current regimen and follow - 04/22 Adjusted dinnertime aspart to reflect glucose >200 around 2100pm nightly - discussed risks of poorly managed diabetes mellitus in setting of medication noncompliance Status: Chronic (11) Physical debility: Problem details: - acute on chronic, therapies following. Continue to increase activity, more walking in the hallway. Status: Acute (12) Unable to care for self: Problem details: - will likely require SNF placement when medically stable Status: Acute (13) Candidal intertrigo: Problem details: - also has oral thrush 04/14/24; treat with 3 days of Diflucan 200mg orally + topical clotrimazole and Nystatin swish and swallow Status: Resolved (14) Paroxysmal atrial fibrillation: Problem details: - thought to be cause of previous embolic stroke - chronically anticoagulated with warfarin with INR goal of 2-3 (subtherapeutic INR 04/13, bridging with Lovenox) - > transitioned to Apixaban on 04/14, continue - continue home dose of carvedilol for rate control - discussed risks of poorly managed AFib, RVR, stroke, NE in setting of medication noncompliance Status: Acute (15) Anemia: Problem details: - chronic, normocytic, unclear etiology, has received outpatient iron infusions with PCP - continue oral iron supplementation d/c - reassuring colonoscopy 01/[address] Ritter - baseline Hg 11, with Hg 10.5 on 04/15/24 - 04/18 stable around 10 Status: Acute (16) Elevated troponin: Problem details: - mild, no chest pain (+ nausea) - peak at 0.08, repeat TTE has been ordered for 04/15 given concern for CVA. TTE 04/15/2024 demonstrates the followin. Normal LV chamber size, mild increased wall thickness, normal systolic function, EF 67% 2. Mild concentric LVH with grade 1 pattern of LV diastolic filling 3. Mild enlarged left atrium with increased left atrial pressure 4. Normal RV chamber size and function 5. Functioning 21 mm Inspiris bioprosthesis AVR with no stenosis or regurgitation 6. Sclerotic mitral valve, mild mitral regurgitation, mild mitral stenosis 7. Normal tricuspid valve with trace tricuspid regurgitation 8. Negative bubble study - TTE 01/2024 with results below: Final Impressions: 1. Technically limited exam. 2. Normal left ventricular size, normal wall thickness, normal global systolic function, calculated EF of 64 %. 3. The aortic valve is functioning 21 mm Inspiris bioprosthesis AVR, no stenosis and no regurgitation. There is trivial paravalvular regurgitation. The aortic valve peak velocity is 2.6 m/s, the peak gradient is 27 mmHg, and the mean gradient is 15 mmHg. 4. The mitral valve is sclerotic, mild mitral regurgitation. 5. Mild-moderate tricuspid regurgitation. 6. Elevated estimated pulmonary pressures by tricuspid regurgitation velocity and right atrial pressure (33 mmHg plus RAP). 7. Echo contrast was administered to enhance visualization of all left ventricular segments. Status: Acute (17) Falls: Problem details: Recent fall January 2024 with humerus fracture. Uses a four-wheel walker. Status: Acute (18) History of DVT (deep vein thrombosis): Problem details: History of DVT now on chronic anticoagulation for AFib as well Status: Acute (19) Discharge planning issues: Problem details: Patient is not safe to be living independently at home. has cognitive impairment and unable to be particularly helpful. [employer] working on options for placement. Status: Acute (20) Lower extremity edema: Problem details: Elevation, compression and resume furosemide. Status: Acute Plan Continue in hospital pending safe discharge plan. Time Spent With Patient Total time spent: Total time spent today is 40 minutes in coordination of care and discussion with patient other providers ongoing management of multiple problems noted above. Subjective Date Seen: 04/24/24 Interval history: Admission HPI: Nava Borrego is seen as an Interactive Telehealth visit. Nava Borrego is a 68 year old Female who presents to hospital after a fall. Patient has been living at home after being recently discharged from acute rehab facility. In February of this year, she presented to the emergency room due to falls. During that time she was found to have gastroenteritis. She was seen by therapies and was actually discharged home on March 19, 2024. Prior to that she was at a TCU where she presented there due to surgical repair of the proximal left spiral humeral fracture. Today she presents to hospital after she had a fall. She was unable to be assisted by her . When she presented, she was noted to be covered in her own urine, her perineum was macerated skin, she was noted to be disheveled in appearance. Her blood sugars were greater than 400. Patient's INR was less than then therapeutic less than 1. During evaluation, the patient was unable to explain appropriately what was going on. She was often tangential in speech and did not ER physician did not feel comfortable discharging home. When I saw the patient, she was noted to be in no acute distress, however when she was confused and she was confabulating certain aspects of her story. I agreed with the ER physician about admitting the patient for her safety. During hospital stay she had ongoing evaluation for her difficulties managing her health status. Cognitive in testing showed a [place] of 17/30 compared to 21/30 in June of 2022 she also had neuropsych testing in December of 2023 raising concerns about her ability to live independently. She had spells of altered consciousness which were more likely vasovagal syncope rather than stroke. She did have evaluation showing small strokes on her MRI as well. Blood sugar was seen to be poorly controlled. Echocardiogram showed relatively stable findings on her cardiac function. On admission she had diarrhea which is improved during hospital stay. No C diff. She had acute kidney injury which improved during her hospital stay. She had oral thrush and was treated with Diflucan which is now been stopped as it has resolved. Exam Narrative: Exam Narrative: She is alert and appears in no distress. She is oriented to her circumstances and fairly good giving her history and discussing plans of care. Respirations are clear to auscultation. Cardiovascular: S1, S2, regular rate and rhythm. Abdomen is soft without tenderness or mass. She has 3+ edema in her lower extremities. Const: Vital Signs, click to edit/add: Vital Signs - 24 hr 04/22/24 23:00 04/23/24 03:50 04/23/24 07:00 Temperature 97.5 F L 97.8 F Pulse Rate [Right Pulse Oximeter] 65 65 65 Respiratory Rate 16 18 Blood Pressure [Ri ght Arm] 188/82 H 166/85 H Pulse Oximetry 95 98 Oxygen Delivery Me thod Room Air Room Air 04/23/24 11:00 04/23/24 18:11 04/23/24 19:36 Temperature 98.0 F 98.2 F 97.9 F Pulse Rate [Right Pulse Oximeter] 66 71 72 Respiratory Rate 18 18 16 Blood Pressure [Ri ght Arm] 175/85 H 163/75 H 128/66 Pulse Oximetry 97 96 97 Oxygen Delivery Me thod Room Air Room Air Room Air Documenting provider has reviewed patient's vital signs: yes Imaging CT scan - chest: Radiologist's impression: INDICATION: Altered mental status, vomiting. TECHNIQUE: CT chest PE was acquired with 95 cc Isovue 370 IV contrast. COMPARISON: CT abdomen and pelvis from the same day and 11/22/2020 FINDINGS: Heart and vasculature: Contrast opacification of the pulmonary arterial tree is adequate. No sign of pulmonary embolism. Heart size is normal. Thoracic aorta and pulmonary artery are normal in caliber. Prior median sternotomy. Aortic valve replacement. Coronary artery calcification and CABG postsurgical changes. Lungs and pleura: 1.3 cm nodule within the medial superior segment of the right lower lobe (5/73). This is unchanged compared to the prior exam. No consolidation, pleural effusion, or pneumothorax. Lymph nodes/mediastinum: Several prominent, borderline enlarged left prevascular lymph nodes measuring up to 9 mm in short axis (4/49). Chest wall: No masses. Upper abdomen: Dictated separately. Bones: Unremarkable for age. IMPRESSION: 1. No pulmonary embolism. 2. No acute findings in the chest. 3. Several prominent, borderline enlarged left prevascular lymph nodes, measuring up to 9 mm. Metastatic disease cannot be entirely excluded given patient`s history of stomach malignancy. This can be further evaluated with PET-CT, if clinically indicated. 4. Grossly unchanged 1.3 cm nodule within the right lower lobe superior segment for greater than 3 years, most likely representing a benign process; however, an indolent metastatic lesion cannot be entirely excluded. This can be further evaluated at the time of PET-CT for the above finding. CT scan - abdomen: Radiologist's impression: INDICATION: Altered mental status, vomiting, elevated troponin TECHNIQUE: CT abdomen and pelvis acquired with 95 cc Isovue 370 IV contrast. COMPARISON: November 2020. FINDINGS: Lower chest: Refer to chest CT of same day. ABDOMEN: Liver: Normal enhancement. No focal suspicious hepatic lesions. Gallbladder and biliary: Cholelithiasis in an otherwise normal gallbladder. Normal caliber bile ducts. Spleen: Changes of splenectomy. Pancreas: Relatively atrophic pancreas. Adrenal glands: Normal adrenal glands. Kidneys and ureters: Normal enhancement. No radio-opaque calculi. No hydroureteronephrosis. Subcentimeter hypodensities are too small to characterize however statistically represent cysts. GI tract: Stomach is relatively decompressed. Postsurgical changes along the greater curvature from prior repair adjacent hemorrhage. Normal caliber small and large bowel loops. Appendix is not definitively visualized. Vascular structures: Normal caliber aorta with atherosclerotic calcifications. Lymph nodes: No lymphadenopathy in the abdomen or pelvis by size criteria. Peritoneum: No free air, free fluid, or focal drainable fluid collection. PELVIS: Genitourinary system: Urinary bladder is decompressed with a catheter. Small amount of intraluminal air should be iatrogenic. Atrophic uterus. SKELETAL STRUCTURES AND SOFT TISSUES: No suspicious lytic or blastic lesions. IMPRESSION: No discrete acute abdominal or pelvic process. No obstruction. No hydroureteronephrosis. MR Brain: Radiologist's impression: Indication: Altered mental status Technique: Noncontrast sagittal T1 weighted, axial FLAIR, axial T2 weighted, and axial diffusion weighted sequences are provided. Comparison: CT head 04/14/2024, MRI 05/07/2023 Findings: There is a 4 mm focus of diffusion restriction in the left lateral cerebellum compatible with acute ischemic infarct. Subacute ischemic infarct in the right parasagittal parietal cortex. Additional small focus of diffusion restriction in the right thalamus. There is similar disproportionate enlargement of the 3rd and lateral ventricles with respect to depth of the sulci with widening of subarachnoid spaces along the sylvian fissures, crowding of structures at the vertex, cephalad bowing and thinning of the corpus callosum. No midline shift. No suspicious extra-axial collection or acute intracranial hemorrhage. Diffuse patchy and confluent foci of T2 prolongation in the periventricular and subcortical white matter of both cerebral hemispheres. Small chronic lacunar infarct in the right frontal lobe periventricular white matter. Moderate T2 hyperintense signal abnormalities in the erica. Small chronic lacunar infarcts in the right cerebellum. Encephalomalacia in the left occipital lobe. Examination is limited by motion artifact. Similar nonspecific susceptible artifact along the right parietal convexity. Bilateral lens replacements. Mild right mastoid effusion. Impression : 1. Small acute ischemic infarcts in the right thalamus and left cerebellum. Subacute ischemic infarct in the right parasagittal parietal cortex. 2. Chronic right cerebellar infarcts. Chronic ischemic infarct in the left occipital lobe and right frontal lobe periventricular white matter. 3. Disproportionate enlargement of the ventricles with respect to sulci raises the possibility of normal pressure hydrocephalus. 4. Moderate supratentorial and infratentorial chronic small-vessel ischemic changes.
[2024-04-23] MEDS: INSULIN GLARGINE,HUM.REC.ANLOG 100 UNIT/ML INSULN.PEN 25 UNIT SUBCUT (20:43)
[2024-04-23 23:30] VITALS: RESP 16
[2024-04-24 01:08] VITALS: BP 140/76; PULSE 66; RESP 20; TEMP 36.4; O2SAT 98
--- NOTE | 2024-04-24 05:01 | PC.NURSE ---
Pt pleasant and cooperative. Pt had no complaints of pain. Pt up with SBA with walker. Pt?s VS WNL. Pt slept most of shift.?
[2024-04-24 07:00] VITALS: BP 147/73; PULSE 69; RESP 20; TEMP 36.3; O2SAT 97
[2024-04-24] MEDS: ASPIRIN 81 MG TABLET EC PO (08:35)
[2024-04-24] MEDS: carvediloL 6.25 MG TABLET 12.5 MG PO ×2 (08:35→20:44)
[2024-04-24] MEDS: THIAMINE 100 MG TABLET PO (08:35)
[2024-04-24] MEDS: AMLODIPINE 10 MG TABLET PO (08:35)
[2024-04-24] MEDS: LACTOBACILLUS ACIDOPHILUS 1 TABLET 1 TAB PO ×3 (08:35→18:07)
[2024-04-24] MEDS: SENNOSIDES/DOCUSATE TABLET 1 TAB PO (08:36)
[2024-04-24] MEDS: INSULIN ASPART 100 UNIT/ML SUBCUT ×4 (08:36→20:45)
[2024-04-24] MEDS: ATORVASTATIN CALCIUM 40 MG TABLET PO (08:36)
[2024-04-24] MEDS: FLUOXETINE HCL 10 MG CAPSULE PO (08:36)
[2024-04-24] MEDS: APIXABAN 5 MG TABLET PO ×2 (08:36→20:44)
[2024-04-24] MEDS: NYSTATIN 500,000 UNIT/5 ML 500000 UNIT SWISH/SWAL ×4 (08:38→20:43)
[2024-04-24] MEDS: NYSTATIN POWDER 1 APPLIC TOPICAL ×2 (08:38→20:49)
[2024-04-24] MEDS: SODIUM CHLORIDE 0.9 % (FLUSH) 10 ML SYRINGE 5 ML IVF ×2 (08:44→20:46)
[2024-04-24 13:23] VITALS: BP 155/77; PULSE 67; RESP 18; TEMP 36.4; O2SAT 98
[2024-04-24 15:00] VITALS: PULSE 67; RESP 18
[2024-04-24] MEDS: INSULIN ASPART 100 UNIT/ML 10 UNIT SUBCUT (18:08)
[2024-04-24 20:41] VITALS: BP 166/74; PULSE 67; RESP 16; TEMP 36.5; O2SAT 98
[2024-04-24] MEDS: INSULIN GLARGINE,HUM.REC.ANLOG 100 UNIT/ML INSULN.PEN 25 UNIT SUBCUT (20:45)
--- NOTE | 2024-04-25 06:33 | PC.NURSE ---
Pt pleasant and cooperative. Pt had no complaints of pain. Pt up with SBA with walker. Pt?s VS WNL. Pt slept most of shift.?
[2024-04-25 07:00] VITALS: BP 144/90; PULSE 67; PULSE 71; RESP 16; TEMP 36.6; O2SAT 96
[2024-04-25 07:05] LABS: Chloride* 104 mmol/L (96-114); Potassium* 4.6 mmol/L (3.6-5.1); Sodium* 136 mmol/L (135-149)
[2024-04-25 07:08] LABS: Anion Gap 9 mEq/L (7-15); Blood Urea Nitrogen* 19 mg/dL (7-30); Calcium* 8.9 mg/dL (8.4-10.6); Carbon Dioxide* 23 mmol/L (20-32); Creatinine* 0.6 mg/dL (0.5-1.5); Est. Creatinine Clearance* 49.12; Estimated Glomerular Filt Rate 98 ml/min; Glucose* 246 mg/dL (60-115)
[2024-04-25] MEDS: APIXABAN 5 MG TABLET PO ×2 (09:51→20:30)
[2024-04-25] MEDS: carvediloL 6.25 MG TABLET 12.5 MG PO ×2 (09:51→20:30)
[2024-04-25] MEDS: THIAMINE 100 MG TABLET PO (09:52)
[2024-04-25] MEDS: FLUOXETINE HCL 10 MG CAPSULE PO (09:52)
[2024-04-25] MEDS: SENNOSIDES/DOCUSATE TABLET 1 TAB PO (09:52)
[2024-04-25] MEDS: FUROSEMIDE 40 MG TABLET PO (09:52)
[2024-04-25] MEDS: ASPIRIN 81 MG TABLET EC PO (09:52)
[2024-04-25] MEDS: ATORVASTATIN CALCIUM 40 MG TABLET PO (09:52)
[2024-04-25] MEDS: AMLODIPINE 10 MG TABLET PO (09:52)
[2024-04-25] MEDS: SODIUM CHLORIDE 0.9 % (FLUSH) 10 ML SYRINGE 5 ML IVF (09:53)
[2024-04-25] MEDS: NYSTATIN POWDER 1 APPLIC TOPICAL (09:53)
[2024-04-25] MEDS: NYSTATIN 500,000 UNIT/5 ML 500000 UNIT SWISH/SWAL (09:58)
[2024-04-25] MEDS: LACTOBACILLUS ACIDOPHILUS 1 TABLET 1 TAB PO ×2 (09:59→12:33)
[2024-04-25] MEDS: INSULIN ASPART 100 UNIT/ML 8 UNIT SUBCUT ×2 (10:02→12:34)
[2024-04-25] MEDS: INSULIN ASPART 100 UNIT/ML SUBCUT ×3 (10:03→20:27)
[2024-04-25 15:00] VITALS: PULSE 71; RESP 16
--- NOTE | 2024-04-25 15:29 | PM.IMPN1 ---
Progress Note: A&P Assessment and plan (1) Dementia: Problem details: -underwent formal neurocognitive testing at [facility] 12/22/23 -per EMR, psychologist diagnosed Unspecified Major Neurocognitive Disorder (i.e., Dementia due to Multiple Etiologies). Although this degree of memory and executive dysfunction undermine her safety and independence in daily life, it is important to note that she is still capable of living in her home with the additional supports. She is not safe to independently manage her medications/insulin, finances and personal affairs, or independently navigate the community/drive. [place] score 17/30 on 04/16/2024. Scored 21/30 summer Status: Acute (2) Spell of altered consciousness: Problem details: - on 04/14, following admission to floor, patient had a spell lasting less than an hour with apparent confusion and inability to communicate verbally, stroke code called - reassuring CT/CTA head. Subsequently MRI showed multiple small acute infarcts noted below. Spell of altered consciousness clinically appeared more like vasovagal/neurocardiogenic syncope Status: Acute (3) CVA (cerebral vascular accident): Problem details: - CT head 04/14/2024 without acute intracranial hemorrhage or mass effect - MRI 04/15 with results below - reviewed with Dr. Kirkland of Stroke Neurology who felt that these findings were too small to cause the symptoms 04/14 or to require significant intervention - therapies following, SNF recommended - concerned that these episodes may represent TIAs or seizure Impression: 1. Small acute ischemic infarcts in the right thalamus and left cerebellum. Subacute ischemic infarct in the right parasagittal parietal cortex. 2. Chronic right cerebellar infarcts. Chronic ischemic infarct in the left occipital lobe and right frontal lobe periventricular white matter. 3. Disproportionate enlargement of the ventricles with respect to sulci raises the possibility of normal pressure hydrocephalus. 4. Moderate supratentorial and infratentorial chronic small-vessel ischemic changes. - previous history CVA, 2010, multiple - therapies following - discussed risk for recurrent strokes in setting of medication noncompliance Status: Acute (4) Acute kidney injury: Problem details: - 04/17 creatinine 2.8 up from baseline of 0.7 on admission. BUN not elevated. Patient has Nina catheter in place, no evidence of lower obstruction. No evidence of hypotension. I have reviewed her medications and will hold furosemide and lisinopril. She did already get her doses of that this morning. Will also give IV fluids overnight and recheck in the morning. May need renal ultrasound or further investigation. - 3/2 Cr stable at 2.8 after IVF bolus and maintenance overnight. Renal US unremarkable. Urine in catheter has sediment - check UA (last one was on 04/14/24). Continue IVF at 75 cc/hr overnight yet, continue to hold lisinopril and furosemide. Recheck Cr in am. - 3/3 improving. Creatinine down to 2. Stop IV fluids, monitor. Continue to hold lisinopril and furosemide. I spoke with pharmacy - brief Cr elevation may have been from diflucan. - 3/4 Resolved. 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, also remote h/o DVT - transitioned to Apixaban from warfarin 04/14/24, continue - DOAC good choice for her in setting of medication noncompliance as will not need to follow INR nor adjust dosing Status: Acute (8) Vomiting: Problem details: - noted after episode of AMS 04/14, reassuring Ct A/P - symptoms resolved 04/15, tolerating diet Status: Resolved (9) Bladder incontinence: Problem details: Chronic Status: Chronic (10) Insulin dependent diabetes mellitus: Problem details: - A1C 9.0 on 03/25/24, continuing home insulin during stay + SSI - 04/17 POC glucoses variable: 68-280s, decrease LA insulin slightly, halve mealtime insulin and increase ISS - 04/18 POC glucoses still variable: continue current regimen and follow - 04/22 Adjusted dinnertime aspart to reflect glucose >200 around 2100pm nightly - discussed risks of poorly managed diabetes mellitus in setting of medication noncompliance March 9th. Mealtime and long-acting insulin and both been increased to optimize blood sugar control. Status: Chronic (11) Physical debility: Problem details: - acute on chronic, therapies following. Continue to increase activity, more walking in the hallway. Status: Acute (12) Unable to care for self: Problem details: - will likely require SNF placement when medically stable Status: Acute (13) Candidal intertrigo: Problem details: - also has oral thrush 04/14/24; treat with 3 days of Diflucan 200mg orally + topical clotrimazole and Nystatin swish and swallow Status: Resolved (14) Paroxysmal atrial fibrillation: Problem details: - thought to be cause of previous embolic stroke - chronically anticoagulated with warfarin with INR goal of 2-3 (subtherapeutic INR 04/13, bridging with Lovenox) - > transitioned to Apixaban on 04/14, continue - continue home dose of carvedilol for rate control - discussed risks of poorly managed AFib, RVR, stroke, [place] in setting of medication noncompliance Status: Acute (15) Anemia: Problem details: - chronic, normocytic, unclear etiology, has received outpatient iron infusions with PCP - continue oral iron supplementation d/c - reassuring colonoscopy 01/[address] Ritter - baseline Hg 11, with Hg 10.5 on 04/15/24 - 04/18 stable around 10 Status: Acute (16) Elevated troponin: Problem details: - mild, no chest pain (+ nausea) - peak at 0.08, repeat TTE has been ordered for 04/15 given concern for CVA. TTE 04/15/2024 demonstrates the followin. Normal LV chamber size, mild increased wall thickness, normal systolic function, EF 67% 2. Mild concentric LVH with grade 1 pattern of LV diastolic filling 3. Mild enlarged left atrium with increased left atrial pressure 4. Normal RV chamber size and function 5. Functioning 21 mm Inspiris bioprosthesis AVR with no stenosis or regurgitation 6. Sclerotic mitral valve, mild mitral regurgitation, mild mitral stenosis 7. Normal tricuspid valve with trace tricuspid regurgitation 8. Negative bubble study - TTE 01/2024 with results below: Final Impressions: 1. Technically limited exam. 2. Normal left ventricular size, normal wall thickness, normal global systolic function, calculated EF of 64 %. 3. The aortic valve is functioning 21 mm Inspiris bioprosthesis AVR, no stenosis and no regurgitation. There is trivial paravalvular regurgitation. The aortic valve peak velocity is 2.6 m/s, the peak gradient is 27 mmHg, and the mean gradient is 15 mmHg. 4. The mitral valve is sclerotic, mild mitral regurgitation. 5. Mild-moderate tricuspid regurgitation. 6. Elevated estimated pulmonary pressures by tricuspid regurgitation velocity and right atrial pressure (33 mmHg plus RAP). 7. Echo contrast was administered to enhance visualization of all left ventricular segments. Status: Acute (17) Falls: Problem details: Recent fall January 2024 with humerus fracture. Uses a four-wheel walker. Status: Acute (18) History of DVT (deep vein thrombosis): Problem details: History of DVT now on chronic anticoagulation for AFib as well Status: Acute (19) Discharge planning issues: Problem details: Patient is not safe to be living independently at home. has cognitive impairment and unable to be particularly helpful. Wastewater Treatment Supervisor working on options for placement. Status: Acute (20) Lower extremity edema: Problem details: Elevation, compression and resume furosemide. Status: Acute Plan Continue in-hospital pending safe discharge plan continue to evaluate and manage multiple medical problems noted above and optimize chronic disease management. Plan of care discussed with the patient and other providers. Total time spent today is 35 minutes in coordination of care and evaluation and management Subjective Date Seen: 04/25/24 Interval history: Admission HPI: Nava Borrego is seen as an Interactive Telehealth visit. Nava Borrego is a 68 year old Female who presents to hospital after a fall. Patient has been living at home after being recently discharged from acute rehab facility. In February of this year, she presented to the emergency room due to falls. During that time she was found to have gastroenteritis. She was seen by therapies and was actually discharged home on March 19, 2024. Prior to that she was at a TCU where she presented there due to surgical repair of the proximal left spiral humeral fracture. Today she presents to hospital after she had a fall. She was unable to be assisted by her . When she presented, she was noted to be covered in her own urine, her perineum was macerated skin, she was noted to be disheveled in appearance. Her blood sugars were greater than 400. Patient's INR was less than then therapeutic less than 1. During evaluation, the patient was unable to explain appropriately what was going on. She was often tangential in speech and did not ER physician did not feel comfortable discharging home. When I saw the patient, she was noted to be in no acute distress, however when she was confused and she was confabulating certain aspects of her story. I agreed with the ER physician about admitting the patient for her safety. During hospital stay she had ongoing evaluation for her difficulties managing her health status. Cognitive in testing showed a [place] of 17 compared to in June of 2022 she also had neuropsych testing in December of 2023 raising concerns about her ability to live independently. She had spells of altered consciousness which were more likely vasovagal syncope rather than stroke. She did have evaluation showing small strokes on her MRI as well. Blood sugar was seen to be poorly controlled. Echocardiogram showed relatively stable findings on her cardiac function. On admission she had diarrhea which is improved during hospital stay. No C diff. She had acute kidney injury which improved during her hospital stay. She had oral thrush and was treated with Diflucan which is now been stopped as it has resolved. 04/25/2024. Patient reports doing well today. The edema in her legs is better. She has been treated for thrush for about 2 weeks and this seems to have resolved. Blood sugar control has been fair. Insulin has been titrated up to improve blood sugar control. Exam Narrative: Exam Narrative: She is alert and appears in no distress. Breathing is unlabored. Oropharynx is normal without mucosal abnormalities. She does have dental loss and dental decay. Much improved edema in her lower extremities, now 1 to 2+ edema.. Const: Vital Signs, click to edit/add: Vital Signs - 24 hr 04/24/24 15:00 04/24/24 20:41 04/25/24 07:00 Temperature 97.7 F Pulse Rate [Right Pulse Oximeter] 67 67 67 Respiratory Rate 18 16 16 Blood Pressure [Ri ght Arm] 166/74 H Pulse Oximetry 98 Oxygen Delivery Me thod Room Air 04/25/24 07:00 Temperature 97.8 F Pulse Rate [Right Pulse Oximeter] 71 Respiratory Rate 16 Blood Pressure [Ri ght Arm] 144/90 H Pulse Oximetry 96 Oxygen Delivery Me thod Room Air Documenting provider has reviewed patient's vital signs: yes Labs Labs: Laboratory Results - last 24 hr 04/25/24 06:16 Sodium 136 Potassium 4.6 Chloride 104 Carbon Dioxide 23 Anion Gap 9 BUN 19 Creatinine 0.6 Estimated Creat Clear 49.12 Estimated GFR 98 Glucose 246 H Calcium 8.9
[2024-04-25] MEDS: INSULIN ASPART 100 UNIT/ML 10 UNIT SUBCUT (18:51)
[2024-04-25 20:25] VITALS: BP 141/64; PULSE 68; RESP 16; TEMP 36.8; O2SAT 97
[2024-04-25] MEDS: INSULIN GLARGINE,HUM.REC.ANLOG 100 UNIT/ML INSULN.PEN 30 UNIT SUBCUT (20:29)
--- NOTE | 2024-04-26 04:33 | PC.NURSE ---
Pt pleasant and cooperative. Pt had no complaints of pain. Pt up with SBA with walker. Pt?s VS WNL. No IV in place. Pt slept most of shift.?
[2024-04-26 08:47] VITALS: BP 149/72; PULSE 70; RESP 16; TEMP 37.1; O2SAT 96
[2024-04-26] MEDS: INSULIN ASPART 100 UNIT/ML SUBCUT ×4 (08:56→21:03)
[2024-04-26] MEDS: INSULIN ASPART 100 UNIT/ML 8 UNIT SUBCUT ×2 (08:57→12:55)
[2024-04-26] MEDS: AMLODIPINE 10 MG TABLET PO (08:57)
[2024-04-26] MEDS: LACTOBACILLUS ACIDOPHILUS 1 TABLET 1 TAB PO ×3 (08:57→18:47)
[2024-04-26] MEDS: THIAMINE 100 MG TABLET PO (08:57)
[2024-04-26] MEDS: ASPIRIN 81 MG TABLET EC PO (08:57)
[2024-04-26] MEDS: ATORVASTATIN CALCIUM 40 MG TABLET PO (08:57)
[2024-04-26] MEDS: APIXABAN 5 MG TABLET PO ×2 (08:57→21:05)
[2024-04-26] MEDS: SENNOSIDES/DOCUSATE TABLET 1 TAB PO (08:58)
[2024-04-26] MEDS: carvediloL 6.25 MG TABLET 12.5 MG PO ×2 (08:58→21:05)
[2024-04-26] MEDS: FUROSEMIDE 40 MG TABLET PO (08:58)
[2024-04-26] MEDS: FLUOXETINE HCL 10 MG CAPSULE PO (09:00)
[2024-04-26 15:00] VITALS: RESP 16
--- NOTE | 2024-04-26 15:40 | PM.IMPN1 ---
Progress Note: A&P Assessment and plan (1) Dementia: Problem details: -underwent formal neurocognitive testing at [facility] 12/22/23 -per EMR, psychologist diagnosed Unspecified Major Neurocognitive Disorder (i.e., Dementia due to Multiple Etiologies). Although this degree of memory and executive dysfunction undermine her safety and independence in daily life, it is important to note that she is still capable of living in her home with the additional supports. She is not safe to independently manage her medications/insulin, finances and personal affairs, or independently navigate the community/drive. [place] score 17/30 on 04/16/2024. Scored 21/30 summer Status: Acute (2) Spell of altered consciousness: Problem details: - on 04/14, following admission to floor, patient had a spell lasting less than an hour with apparent confusion and inability to communicate verbally, stroke code called - reassuring CT/CTA head. Subsequently MRI showed multiple small acute infarcts noted below. Spell of altered consciousness clinically appeared more like vasovagal/neurocardiogenic syncope Status: Acute (3) CVA (cerebral vascular accident): Problem details: - CT head 04/14/2024 without acute intracranial hemorrhage or mass effect - MRI 04/15 with results below - reviewed with Dr. Kirkland of Stroke Neurology who felt that these findings were too small to cause the symptoms 04/14 or to require significant intervention - therapies following, SNF recommended - concerned that these episodes may represent TIAs or seizure Impression: 1. Small acute ischemic infarcts in the right thalamus and left cerebellum. Subacute ischemic infarct in the right parasagittal parietal cortex. 2. Chronic right cerebellar infarcts. Chronic ischemic infarct in the left occipital lobe and right frontal lobe periventricular white matter. 3. Disproportionate enlargement of the ventricles with respect to sulci raises the possibility of normal pressure hydrocephalus. 4. Moderate supratentorial and infratentorial chronic small-vessel ischemic changes. - previous history CVA, 2010, multiple - therapies following - discussed risk for recurrent strokes in setting of medication noncompliance Status: Acute (4) Acute kidney injury: Problem details: Creatinine on admission was 2.8. Has now come down to 0.6 on April 25. Baseline is 0.7 Status: Resolved (5) Diarrhea: Problem details: Had diarrhea on admission. This appears to have resolved. Status: Resolved (6) Noncompliance with medication regimen: Problem details: - noted to have subtherapeutic INR and hyperglycemia on admission, concern for not managing home medications well - transitioned to Apixaban 04/14/24 - will likely require [facility] placement upon d/c - patient agreeable as of 04/16/2024 and daughter concurs Status: Acute (7) Chronic anticoagulation: Problem details: - for history of embolic stroke due to atrial fibrillation, also remote h/o DVT - transitioned to Apixaban from warfarin 04/14/24, continue - DOAC good choice for her in setting of medication noncompliance as will not need to follow INR nor adjust dosing Status: Acute (8) Vomiting: Problem details: - noted after episode of AMS 04/14, reassuring Ct A/P - symptoms resolved 04/15, tolerating diet Status: Resolved (9) Bladder incontinence: Problem details: Chronic Status: Chronic (10) Insulin dependent diabetes mellitus: Problem details: - A1C 9.0 on 03/25/24, continuing home insulin during stay + SSI April 25. Mealtime and long-acting insulin and both been increased to optimize blood sugar control. Status: Chronic (11) Physical debility: Problem details: - acute on chronic, therapies following. Continue to increase activity, more walking in the hallway. Status: Acute (12) Unable to care for self: Problem details: - will likely require SNF placement when medically stable. Ongoing discharge planning Status: Acute (13) Candidal intertrigo: Problem details: - also has oral thrush 04/14/24; treat with 3 days of Diflucan 200mg orally + topical clotrimazole and Nystatin swish and swallow Status: Resolved (14) Paroxysmal atrial fibrillation: Problem details: - thought to be cause of previous embolic stroke - chronically anticoagulated with warfarin with INR goal of 2-3 (subtherapeutic INR 04/13, bridging with Lovenox) - > transitioned to Apixaban on 04/14, continue - continue home dose of carvedilol for rate control - discussed risks of poorly managed AFib, RVR, stroke, [place] in setting of medication noncompliance Status: Acute (15) Anemia: Problem details: - chronic, normocytic, unclear etiology, has received outpatient iron infusions with PCP - continue oral iron supplementation d/c - reassuring colonoscopy 01/[address] Ritter - baseline Hg 11, with Hg 10.5 on 04/15/24 - 04/18 stable around 10 Status: Acute (16) Elevated troponin: Problem details: - mild, no chest pain (+ nausea) - peak at 0.08, repeat TTE has been ordered for 04/15 given concern for CVA. TTE 04/15/2024 demonstrates the followin. Normal LV chamber size, mild increased wall thickness, normal systolic function, EF 67% 2. Mild concentric LVH with grade 1 pattern of LV diastolic filling 3. Mild enlarged left atrium with increased left atrial pressure 4. Normal RV chamber size and function 5. Functioning 21 mm Inspiris bioprosthesis AVR with no stenosis or regurgitation 6. Sclerotic mitral valve, mild mitral regurgitation, mild mitral stenosis 7. Normal tricuspid valve with trace tricuspid regurgitation 8. Negative bubble study - TTE 01/2024 with results below: Final Impressions: 1. Technically limited exam. 2. Normal left ventricular size, normal wall thickness, normal global systolic function, calculated EF of 64 %. 3. The aortic valve is functioning 21 mm Inspiris bioprosthesis AVR, no stenosis and no regurgitation. There is trivial paravalvular regurgitation. The aortic valve peak velocity is 2.6 m/s, the peak gradient is 27 mmHg, and the mean gradient is 15 mmHg. 4. The mitral valve is sclerotic, mild mitral regurgitation. 5. Mild-moderate tricuspid regurgitation. 6. Elevated estimated pulmonary pressures by tricuspid regurgitation velocity and right atrial pressure (33 mmHg plus RAP). 7. Echo contrast was administered to enhance visualization of all left ventricular segments. Status: Acute (17) Falls: Problem details: Recent fall January 2024 with humerus fracture. Uses a four-wheel walker. Status: Acute (18) History of DVT (deep vein thrombosis): Problem details: History of DVT now on chronic anticoagulation for AFib as well Status: Acute (19) Discharge planning issues: Problem details: Patient is not safe to be living independently at home. has cognitive impairment and unable to be particularly helpful. Occupational Health Nurse Manager working on options for placement. Status: Acute (20) Lower extremity edema: Problem details: Elevation, compression and resume furosemide. Status: Acute Plan Continue in hospital pending safe discharge plan continue to monitor and manage diabetes, edema, acute on chronic kidney disease and other chronic medical problems pending discharge. Total time spent today is 25 minutes in coordination of care and discussing with patient and other providers ongoing management of diabetes, weakness, chronic kidney disease., Subjective Date Seen: 04/26/24 Interval history: Admission HPI: Nava Borrego is seen as an Interactive Telehealth visit. Nava Borrego is a 68 year old Female who presents to hospital after a fall. Patient has been living at home after being recently discharged from acute rehab facility. In February of this year, she presented to the emergency room due to falls. During that time she was found to have gastroenteritis. She was seen by therapies and was actually discharged home on March 19, 2024. Prior to that she was at a TCU where she presented there due to surgical repair of the proximal left spiral humeral fracture. Today she presents to hospital after she had a fall. She was unable to be assisted by her . When she presented, she was noted to be covered in her own urine, her perineum was macerated skin, she was noted to be disheveled in appearance. Her blood sugars were greater than 400. Patient's INR was less than then therapeutic less than 1. During evaluation, the patient was unable to explain appropriately what was going on. She was often tangential in speech and did not ER physician did not feel comfortable discharging home. When I saw the patient, she was noted to be in no acute distress, however when she was confused and she was confabulating certain aspects of her story. I agreed with the ER physician about admitting the patient for her safety. During hospital stay she had ongoing evaluation for her difficulti patient has no complaints today. She is happy to be up walking independently. es managing her health status. Cognitive in testing showed a [place] of 17/30 compared to 21/30 in June of 2022 she also had neuropsych testing in December of 2023 raising concerns about her ability to live independently. She had spells of altered consciousness which were more likely vasovagal syncope rather than stroke. She did have evaluation showing small strokes on her MRI as well. Blood sugar was seen to be poorly controlled. Echocardiogram showed relatively stable findings on her cardiac function. On admission she had diarrhea which is improved during hospital stay. No C diff. She had acute kidney injury which improved during her hospital stay. She had oral thrush and was treated with Diflucan which is now been stopped as it has resolved. 04/25/2024. Patient reports doing well today. The edema in her legs is better. She has been treated for thrush for about 2 weeks and this seems to have resolved. Blood sugar control has been fair. Insulin has been titrated up to improve blood sugar control. 04/26/2024: Patient has no new complaints today. She is happy to be up walking independently. She reports her leg edema is better. She is tolerating adjustments to her insulin and diabetes. Still pending disposition planning. Exam Narrative: Exam Narrative: She is alert and appears in no distress. Mood and affect are bright. She is cooperative and pleasant. Oriented to her circumstances. Lower extremity edema at 1+ bilaterally with support hose in place. Const: Vital Signs, click to edit/add: Vital Signs - 24 hr 04/25/24 20:25 04/26/24 08:47 04/26/24 08:47 Temperature 98.3 F 98.8 F Pulse Rate [Right Pulse Oximeter] 68 70 70 Respiratory Rate 16 16 16 Blood Pressure [Ri ght Arm] 141/64 H 149/72 H Pulse Oximetry 97 96 Oxygen Delivery Me thod Room Air Room Air Documenting provider has reviewed patient's vital signs: yes
--- NOTE | 2024-04-26 16:48 | PC.SOCIAL ---
Discharge planning: Dtr has stated she will agree to placement at any facility that can accept pt Medical Assistance Pending. Called the following facilities regarding placement: 1. [facility] 2. [facility] 3. [facility] (and other [facility] facilities) 4. [facility] None of these facilities will consider Medical Assistance pending patients for admission. Called dtr to request update on whether she could obtain the financial form that is preventing pt from acceptance at [facility]. Did not receive a call back. director workers compensation to follow up as needed.
[2024-04-26] MEDS: INSULIN ASPART 100 UNIT/ML 10 UNIT SUBCUT (18:46)
--- NOTE | 2024-04-26 19:30 | PC.NURSE ---
Nursing Care Hours: [id number] pt this shift alert and oriented x3, no c/o pain. SB assist advanced to independent in room and halls. VSS this AM. Insulin given per order and sliding scale.
[2024-04-26 19:51] VITALS: BP 150/73; PULSE 73; RESP 16; TEMP 36.3; O2SAT 96
[2024-04-26] MEDS: INSULIN GLARGINE,HUM.REC.ANLOG 100 UNIT/ML INSULN.PEN 30 UNIT SUBCUT (21:02)
--- NOTE | 2024-04-27 07:48 | PC.NURSE ---
Pt pleasant and cooperative. Pt had no complaints of pain. Pt up with Independent with walker. Pt?s VS WNL. No IV in place. Pt slept most of shift.?
[2024-04-27 07:50] VITALS: BP 175/79; PULSE 72; RESP 18; TEMP 36.4; O2SAT 95
[2024-04-27] MEDS: FUROSEMIDE 40 MG TABLET PO (08:22)
[2024-04-27] MEDS: ATORVASTATIN CALCIUM 40 MG TABLET PO (08:23)
[2024-04-27] MEDS: APIXABAN 5 MG TABLET PO (08:23)
[2024-04-27] MEDS: SENNOSIDES/DOCUSATE TABLET 1 TAB PO (08:23)
[2024-04-27] MEDS: LACTOBACILLUS ACIDOPHILUS 1 TABLET 1 TAB PO (08:23)
[2024-04-27] MEDS: carvediloL 6.25 MG TABLET 12.5 MG PO (08:23)
[2024-04-27] MEDS: ASPIRIN 81 MG TABLET EC PO (08:23)
[2024-04-27] MEDS: FLUOXETINE HCL 10 MG CAPSULE PO (08:24)
[2024-04-27] MEDS: AMLODIPINE 10 MG TABLET PO (08:24)
[2024-04-27] MEDS: THIAMINE 100 MG TABLET PO (08:24)
[2024-04-27] MEDS: INSULIN ASPART 100 UNIT/ML 8 UNIT SUBCUT (08:25)
[2024-04-27] MEDS: INSULIN ASPART 100 UNIT/ML SUBCUT (08:25)
--- NOTE | 2024-04-27 14:56 | PM.DS1 ---
DS: Providers Provider Date Seen: 04/27/24 Date of admission: 04/15/24 07:46 Primary care physician: Hilda Cheema MD Admitting Clinician: Gretta Escalona MD Attending Physician on discharge: Jimbo White MD Date of Discharge: 04/27/24 DS: Diagnosis Discharge Diagnosis (1) Metabolic encephalopathy: Status: Acute Problem details: At the time of admission patient presented with a fall but was most profoundly encephalopathic. The cause for this is uncertain. Multiple contributing factors were identified including acute stroke and medication noncompliance. She also had an apparent acute illness with vomiting and diarrhea at the time of admission. That has resolved. Early in the hospital stay she was felt to be too encephalopathic to be able to care for herself and attempts were made to place her in a halfway facility or TCU for ongoing care. She subsequently had steady improvement while in the hospital to the point where she was deemed to be safe to be independent at home and managing her own medical problems. (2) Falls: Status: Acute Problem details: Admitted to the hospital after a fall at home. She had previously fallen with the humerus fracture and was in a TCU. Discharge to home and began falling again. (3) Dementia: Status: Acute Problem details: -underwent formal neurocognitive testing at [facility] 12/22/23 -per EMR, psychologist diagnosed Unspecified Major Neurocognitive Disorder (i.e., Dementia due to Multiple Etiologies). Although this degree of memory and executive dysfunction undermine her safety and independence in daily life, it is important to note that she is still capable of living in her home with the additional supports. She is not safe to independently manage her medications/insulin, finances and personal affairs, or independently navigate the community/drive. Towns score 17/30 on 04/16/2024. Scored 21/30 summer. Ongoing assessment of cognitive function is recommended. (4) Spell of altered consciousness: Status: Acute Problem details: - on 04/14, following admission to floor, patient had a spell lasting less than an hour with apparent confusion and inability to communicate verbally, stroke code called - reassuring CT/CTA head. Subsequently MRI showed multiple small acute infarcts noted below. Spell of altered consciousness clinically appeared more like vasovagal/neurocardiogenic syncope. (5) CVA (cerebral vascular accident): Status: Acute Problem details: - CT head 04/14/2024 without acute intracranial hemorrhage or mass effect - MRI 04/15 with results below - reviewed with Dr. Kirkland of Stroke Neurology who felt that these findings were too small to cause the symptoms 04/14 or to require significant intervention Impression: 1. Small acute ischemic infarcts in the right thalamus and left cerebellum. Subacute ischemic infarct in the right parasagittal parietal cortex. 2. Chronic right cerebellar infarcts. Chronic ischemic infarct in the left occipital lobe and right frontal lobe periventricular white matter. 3. Disproportionate enlargement of the ventricles with respect to sulci raises the possibility of normal pressure hydrocephalus. 4. Moderate supratentorial and infratentorial chronic small-vessel ischemic changes. - previous history CVA, 2010, multiple - therapies following - discussed risk for recurrent strokes in setting of medication noncompliance (6) Acute kidney injury: Status: Resolved Problem details: Creatinine on admission was 2.8. Has now come down to 0.6 on April 25. Baseline is 0.7 (7) Diarrhea: Status: Resolved Problem details: Had diarrhea on admission. This appears to have resolved. (8) Vomiting: Status: Resolved Problem details: - noted after episode of AMS 04/14, reassuring Ct A/P - symptoms resolved 04/15, tolerating diet (9) Noncompliance with medication regimen: Status: Acute Problem details: - noted to have subtherapeutic INR and hyperglycemia on admission, concern for not managing home medications well - transitioned to Apixaban 04/14/24 Concern for patient's ability to manage diabetes. Discussed switching from basal-bolus with 4 times daily insulin dosing to b.i.d. treatment with Novolin 70/30. She believes she can manage basal bolus insulin 4 times a day (10) Chronic anticoagulation: Status: Acute Problem details: - for history of embolic stroke due to atrial fibrillation, also remote h/o DVT - transitioned to Apixaban from warfarin 04/14/24, continue (11) Bladder incontinence: Status: Chronic Problem details: Chronic (12) Insulin dependent diabetes mellitus: Status: Chronic Problem details: - A1C 9.0 on 03/25/24, titrating basal bolus regimen. Currently on Lantus 30 units at bedtime and NovoLog 10 units with each meal. Continue outpatient monitoring and adjustment. (13) Physical debility: Status: Acute Problem details: - acute on chronic, therapies following. Continue to increase activity, more walking in the hallway. (14) Unable to care for self: Status: Acute Problem details: Early in her hospital stay was felt she was going to be unable to manage to care for herself. Over the past week she has been much improved cognitively and physically. No longer deemed to need physical rehab and patient does verbalize understanding of her medications and medication management to do this on her own at home. I do recommend home health nursing to supervise. (15) Candidal intertrigo: Status: Resolved Problem details: - also has oral thrush 04/14/24; treat with 3 days of Diflucan 200mg orally + topical clotrimazole and Nystatin swish and swallow. Much improved. (16) Paroxysmal atrial fibrillation: Status: Acute Problem details: On rate control and apixaban (17) Anemia: Status: Acute Problem details: Hemoglobin has been stable during this hospital stay (18) Elevated troponin: Status: Acute Problem details: - mild, no chest pain (+ nausea) - peak at 0.08, repeat TTE has been ordered for 04/15 given concern for CVA. TTE 04/15/2024 demonstrates the followin. Normal LV chamber size, mild increased wall thickness, normal systolic function, EF 67% 2. Mild concentric LVH with grade 1 pattern of LV diastolic filling 3. Mild enlarged left atrium with increased left atrial pressure 4. Normal RV chamber size and function 5. Functioning 21 mm Inspiris bioprosthesis AVR with no stenosis or regurgitation 6. Sclerotic mitral valve, mild mitral regurgitation, mild mitral stenosis 7. Normal tricuspid valve with trace tricuspid regurgitation 8. Negative bubble study - TTE 01/2024 with results below: Final Impressions: 1. Technically limited exam. 2. Normal left ventricular size, normal wall thickness, normal global systolic function, calculated EF of 64 %. 3. The aortic valve is functioning 21 mm Inspiris bioprosthesis AVR, no stenosis and no regurgitation. There is trivial paravalvular regurgitation. The aortic valve peak velocity is 2.6 m/s, the peak gradient is 27 mmHg, and the mean gradient is 15 mmHg. 4. The mitral valve is sclerotic, mild mitral regurgitation. 5. Mild-moderate tricuspid regurgitation. 6. Elevated estimated pulmonary pressures by tricuspid regurgitation velocity and right atrial pressure (33 mmHg plus RAP). 7. Echo contrast was administered to enhance visualization of all left ventricular segments. (19) History of DVT (deep vein thrombosis): Status: Acute Problem details: History of DVT now on chronic anticoagulation for AFib as well (20) Discharge planning issues: Status: Acute Problem details: Initially patient was felt to need halfway facility/tcu. Over the past week she has had marked improvement in her physical functioning and mental status and now is felt to be safe to live independently at home with her . (21) Lower extremity edema: Status: Acute Problem details: Elevation, compression and resume furosemide. DS: Summary Hospital Course Hospital Course: Admission HPI: Nava Borrego is seen as an Interactive Telehealth visit. Nava Borrego is a 68 year old Female who presents to hospital after a fall. Patient has been living at home after being recently discharged from acute rehab facility. In February of this year, she presented to the emergency room due to falls. During that time she was found to have gastroenteritis. She was seen by therapies and was actually discharged home on March 19, 2024. Prior to that she was at a TCU where she presented there due to surgical repair of the proximal left spiral humeral fracture. Today she presents to hospital after she had a fall. She was unable to be assisted by her . When she presented, she was noted to be covered in her own urine, her perineum was macerated skin, she was noted to be disheveled in appearance. Her blood sugars were greater than 400. Patient's INR was less than then therapeutic less than 1. During evaluation, the patient was unable to explain appropriately what was going on. She was often tangential in speech and did not ER physician did not feel comfortable discharging home. When I saw the patient, she was noted to be in no acute distress, however when she was confused and she was confabulating certain aspects of her story. I agreed with the ER physician about admitting the patient for her safety. Early in this admission she had a Towns of compared to in June of 2022 she also had neuropsych testing in December of 2023 raising concerns about her ability to live independently. During this hospital stay her physical and mental status have markedly improved. She had spells of altered consciousness which were more likely vasovagal syncope rather than stroke. She did have evaluation showing small strokes on her MRI as well. Blood sugar was seen to be poorly controlled. Echocardiogram showed relatively stable findings on her cardiac function. On admission she had diarrhea which is improved during hospital stay. No C diff. She had acute kidney injury which improved during her hospital stay. She had oral thrush and was treated with Diflucan which is now been stopped as it has resolved. Status at Discharge Functional status at discharge: uses cane/walker Overall status at discharge: patient is progressing back to baseline Time Spent with Patient Time attestation: Total time spent providing and/or coordinating discharge services: 50 minutes Exam Narrative: Exam Narrative: She is alert and in no distress. Speech is normal. She is oriented to her circumstances. She is able to discuss management of her chronic medical problems and chronic medications in some good detail today. Lower extremity edema is 1+. Const: Vital Signs, click to edit/add: Vital Signs - 24 hr 04/26/24 15:00 04/26/24 19:51 04/27/24 07:50 Temperature 97.4 F L 97.6 F Pulse Rate [Right Pulse Oximeter] 73 72 Respiratory Rate 16 16 18 Blood Pressure [Ri ght Arm] 150/73 H 175/79 H Pulse Oximetry 96 95 Oxygen Delivery Me thod Room Air Room Air Documenting provider has reviewed patient's vital signs: yes DS: Data Imaging MR Brain: Radiologist's impression: Indication: Altered mental status Technique: Noncontrast sagittal T1 weighted, axial FLAIR, axial T2 weighted, and axial diffusion weighted sequences are provided. Comparison: CT head 04/14/2024, MRI 05/07/2023 Findings: There is a 4 mm focus of diffusion restriction in the left lateral cerebellum compatible with acute ischemic infarct. Subacute ischemic infarct in the right parasagittal parietal cortex. Additional small focus of diffusion restriction in the right thalamus. There is similar disproportionate enlargement of the 3rd and lateral ventricles with respect to depth of the sulci with widening of subarachnoid spaces along the sylvian fissures, crowding of structures at the vertex, cephalad bowing and thinning of the corpus callosum. No midline shift. No suspicious extra-axial collection or acute intracranial hemorrhage. Diffuse patchy and confluent foci of T2 prolongation in the periventricular and subcortical white matter of both cerebral hemispheres. Small chronic lacunar infarct in the right frontal lobe periventricular white matter. Moderate T2 hyperintense signal abnormalities in the erica. Small chronic lacunar infarcts in the right cerebellum. Encephalomalacia in the left occipital lobe. Examination is limited by motion artifact. Similar nonspecific susceptible artifact along the right parietal convexity. Bilateral lens replacements. Mild right mastoid effusion. Impression : 1. Small acute ischemic infarcts in the right thalamus and left cerebellum. Subacute ischemic infarct in the right parasagittal parietal cortex. 2. Chronic right cerebellar infarcts. Chronic ischemic infarct in the left occipital lobe and right frontal lobe periventricular white matter. 3. Disproportionate enlargement of the ventricles with respect to sulci raises the possibility of normal pressure hydrocephalus. 4. Moderate supratentorial and infratentorial chronic small-vessel ischemic changes. CT scan - abdomen: Radiologist's impression: INDICATION: Altered mental status, vomiting, elevated troponin TECHNIQUE: CT abdomen and pelvis acquired with 95 cc Isovue 370 IV contrast. COMPARISON: November 2020. FINDINGS: Lower chest: Refer to chest CT of same day. ABDOMEN: Liver: Normal enhancement. No focal suspicious hepatic lesions. Gallbladder and biliary: Cholelithiasis in an otherwise normal gallbladder. Normal caliber bile ducts. Spleen: Changes of splenectomy. Pancreas: Relatively atrophic pancreas. Adrenal glands: Normal adrenal glands. Kidneys and ureters: Normal enhancement. No radio-opaque calculi. No hydroureteronephrosis. Subcentimeter hypodensities are too small to characterize however statistically represent cysts. GI tract: Stomach is relatively decompressed. Postsurgical changes along the greater curvature from prior repair adjacent hemorrhage. Normal caliber small and large bowel loops. Appendix is not definitively visualized. Vascular structures: Normal caliber aorta with atherosclerotic calcifications. Lymph nodes: No lymphadenopathy in the abdomen or pelvis by size criteria. Peritoneum: No free air, free fluid, or focal drainable fluid collection. PELVIS: Genitourinary system: Urinary bladder is decompressed with a catheter. Small amount of intraluminal air should be iatrogenic. Atrophic uterus. SKELETAL STRUCTURES AND SOFT TISSUES: No suspicious lytic or blastic lesions. IMPRESSION: No discrete acute abdominal or pelvic process. No obstruction. No hydroureteronephrosis. CT scan - chest: Radiologist's impression: INDICATION: Altered mental status, vomiting. TECHNIQUE: CT chest PE was acquired with 95 cc Isovue 370 IV contrast. COMPARISON: CT abdomen and pelvis from the same day and 11/22/2020 FINDINGS: Heart and vasculature: Contrast opacification of the pulmonary arterial tree is adequate. No sign of pulmonary embolism. Heart size is normal. Thoracic aorta and pulmonary artery are normal in caliber. Prior median sternotomy. Aortic valve replacement. Coronary artery calcification and CABG postsurgical changes. Lungs and pleura: 1.3 cm nodule within the medial superior segment of the right lower lobe (5/73). This is unchanged compared to the prior exam. No consolidation, pleural effusion, or pneumothorax. Lymph nodes/mediastinum: Several prominent, borderline enlarged left prevascular lymph nodes measuring up to 9 mm in short axis (4/49). Chest wall: No masses. Upper abdomen: Dictated separately. Bones: Unremarkable for age. IMPRESSION: 1. No pulmonary embolism. 2. No acute findings in the chest. 3. Several prominent, borderline enlarged left prevascular lymph nodes, measuring up to 9 mm. Metastatic disease cannot be entirely excluded given patient`s history of stomach malignancy. This can be further evaluated with PET-CT, if clinically indicated. 4. Grossly unchanged 1.3 cm nodule within the right lower lobe superior segment for greater than 3 years, most likely representing a benign process; however, an indolent metastatic lesion cannot be entirely excluded. This can be further evaluated at the time of PET-CT for the above finding. Discharge Plan Discharge Disposition: Home, Self-Care Date of Admission: 04/15/24 07:46 Attending Provider on Discharge: Julio White Primary Care Provider: Hilda Cheema Condition: Improved Anticipated Discharge Date/Time: 04/27/24 13:00 Discharge Medications: New Eliquis 5 mg tablet 5 mg PO BID Qty: 60 2RF Continued amlodipine 10 mg tablet 10 mg PO DAILY furosemide 40 mg tablet 40 mg PO DAILY coenzyme Q10 100 mg capsule 200 mg PO DAILY lidocaine HCl [Aspercreme (lidocaine HCl)] 4 % cream 1 applic topical DAILY PRN sennosides-docusate sodium [Colace 2-In-1] 8.6-50 mg tablet 1 tab-cap PO BID polyethylene glycol 3350 [Miralax] 17 gram/dose powder 17 g PO DAILY PRN acetaminophen [Acetaminophen Pain Relief] 500 mg tablet 1,000 mg PO Q6H PRN atorvastatin 40 mg tablet 40 mg PO DAILY carvedilol 12.5 mg tablet 12.5 mg PO BID fluoxetine 10 mg capsule 10 mg PO DAILY insulin glargine [Lantus Solostar U-100 Insulin] 100 unit/mL (3 mL) insulin pen 30 unit subcut HS lisinopril 40 mg tablet 40 mg PO DAILY Changed insulin aspart U-100 [Novolog FlexPen U-100 Insulin] 100 unit/mL (3 mL) Insulin Pen 10 unit subcut TIDWM Qty: 12 0RF Discontinued warfarin 2 mg tablet 4 mg PO QPM oxycodone 5 mg tablet 5 mg PO Q4H PRN (Reason: severe pain) aspirin [Adult Aspirin Regimen] 81 mg tablet,delayed release (DR/EC) 81 mg PO DAILY Discharge Orders: Discharge Order (Routine); Ordered 04/27/24 Ordered By: Julio White Patient Education: Apixaban (By mouth) (Eliquis), Weakness (DC), Urinary Tract Infection in Older Adults (DC) Additional Instructions: Please stop taking aspirin, warfarin, oxycodone. New medicine is apixaban. This is a blood thinner that does not require regular blood monitoring. It replaces your warfarin and your aspirin. Check your blood sugar each time you take insulin. Activity Level: No Restrictions Discharge Diet: Heart Healthy (2 gm sodium, low fat) Follow Up Appointments: Hilda Cheema MD [Primary Care Provider] - 05/06/24 11:45 am ([facility] for follow-up.) Forms: [employer] Info Instructions Discharge Comments: Resume home health RN, PT, OT, home health aide with [facility] care.
--- NOTE | 2024-04-27 15:27 | PC.SOCIAL ---
Discharge Planning: KINDRA faxed D/C summary along with last PT/OT notes to Bernarda at [facility].
--- NOTE | 2024-04-27 16:28 | PC.SOCIAL ---
Discharge planning: Prior to discharge, met with pt who states she wants to go home and is highly motivated to clean out her home and to make it the best place for her to live Pt is appreciative of the progress she has made with her walking ans self care at the hospital and believes she can keep up her progress to be safe at home. Pt is requesting resumption of home care services with [facility] including RN,PT,OT and home health aid. Called [facility] and confirmed they are able to resume services tomorrow. Called dtrOscar, who is aware and agrees with plan to discharge home otday. Oscar will assist pt with getting the last financial proof form needed for her [employer] Assistance application and make sure that gets submitted. Called [facility] Vulnerable adult worker, Dave, who is aware and agrees with plan for discharge to home. She will continue to work with pt and family to ensure there are services at home and progress made for the home to be a safe location for pt. Pt was picked up and transported home by a family member.
--- NOTE | 2024-04-28 14:31 | PC.SOCIAL ---
Telephone encounter: SW received call from the [facility] Line inquiring about where patient was discharged to as they received a PAS for [facility]. SW informed that patient was denied there and ended up going home with Home Health Services through [facility]. Carolina from [facility] states she will follow-up with the patient at home.
== END 2024-04-27 12:17 | disposition home or self-care (01) | DRG 70 ==
LOC: ED 01:47 → MEDSURG 14:29
PROVIDERS: Family Medicine; Internal Medicine; Student in an Organized Health Care Education/Training Program; Admitting Provider Family Medicine; Emergency Provider Family Medicine; PCP Family Medicine; Visit Provider Family Medicine
DX: G93.41 Metabolic encephalopathy (principal); I63.542 Cerebral infarction due to unspecified occlusion or stenosis of left cerebellar artery; I63.81 Other cerebral infarction due to occlusion or stenosis of small artery; N17.9 Acute kidney failure, unspecified; N18.4 Chronic kidney disease, stage 4 (severe); N39.0 Urinary tract infection, site not specified; B37.0 Candidal stomatitis; I45.2 Bifascicular block; I13.0 Hypertensive heart and chronic kidney disease with heart failure and stage 1 through stage 4 chronic kidney disease, or unspecified chronic kidney disease; F05 Delirium due to known physiological condition; F03.90 Unspecified dementia, unspecified severity, without behavioral disturbance, psychotic disturbance, mood disturbance, and anxiety; I69.311 Memory deficit following cerebral infarction; R19.7 Diarrhea, unspecified; Z91.148 Patient's other noncompliance with medication regimen for other reason; R32 Unspecified urinary incontinence; B37.2 Candidiasis of skin and nail; L30.4 Erythema intertrigo; I48.0 Paroxysmal atrial fibrillation; Z79.01 Long term (current) use of anticoagulants; R79.89 Other specified abnormal findings of blood chemistry; E11.42 Type 2 diabetes mellitus with diabetic polyneuropathy; E11.65 Type 2 diabetes mellitus with hyperglycemia; Z79.4 Long term (current) use of insulin; R15.9 Full incontinence of feces; I50.9 Heart failure, unspecified; E11.22 Type 2 diabetes mellitus with diabetic chronic kidney disease; I45.19 Other right bundle-branch block; R60.0 Localized edema; E78.5 Hyperlipidemia, unspecified
CPT/HCPCS: 36415; 51701; 70450; 70496; 70498; 70551; 71275; 74177; 76770; 80048; 80053; 81001; 82550; 82607; 82962; 83605; 83735; 83880; 84100; 84425; 84484; 85025; 85027; 85379; 85610; 87086; 87493; 87631; 93005; 93306; 94761; 96374; 97110; 97112; 97116; 97161; 97166; 97530; 97535; 99284; 99285; G0427; A9270; G0378; J0696; J0780; J1650; J1815; J2405; J3411; J7030; J7050; J7120; Q9967

== ENCOUNTER 2024-04-27 23:34 | Outpatient (CLI) | payer OTHER, SELFPAY | END 2024-04-27 23:35 | disposition home or self-care (01) | LOC: AMB 04-28 16:30 | PROVIDERS: PCP Family Medicine; Visit Provider Emergency Medicine | DX: R53.1 Weakness (principal) | CPT/HCPCS: A0998 ==

== ENCOUNTER 2024-05-11 17:13 | Outpatient (CLI) | payer OTHER, SELFPAY ==
[2024-05-11 18:34] LABS: INR 1.73 (0.91-1.10); Prothrombin Time 21.3 Seconds
== END 2024-05-11 17:14 | disposition home or self-care (01) ==
LOC: NPINS 17:17
PROVIDERS: PCP Family Medicine; Visit Provider Family Medicine
DX: Z79.01 Long term (current) use of anticoagulants (principal)
CPT/HCPCS: 85610

== ENCOUNTER 2024-05-18 20:19 | Outpatient (REF) | payer OTHER, SELFPAY ==
[2024-05-18 21:57] LABS: INR 1.49 (0.91-1.10)
== END 2024-05-18 20:20 | disposition home or self-care (01) ==
LOC: NPINS 20:19
PROVIDERS: PCP Family Medicine; Visit Provider Family Medicine
DX: I63.9 Cerebral infarction, unspecified (principal); Z79.01 Long term (current) use of anticoagulants; Q21.12 Patent foramen ovale
CPT/HCPCS: 85610

== ENCOUNTER 2024-06-08 19:01 | Outpatient (CLI) | payer MEDICARE, OTHER, SELFPAY | END 2024-06-08 19:02 | disposition home or self-care (01) | PROVIDERS: PCP Family Medicine; Visit Provider Emergency Medicine Emergency Medical Services | DX: R53.1 Weakness (principal) | CPT/HCPCS: A0998 ==

== ENCOUNTER 2024-06-29 05:50 | Outpatient (CLI) | payer MEDICARE, OTHER, SELFPAY | END 2024-06-29 05:51 | disposition home or self-care (01) | LOC: AMB 06-30 09:27 | PROVIDERS: PCP Family Medicine; Visit Provider Family Medicine | DX: R53.1 Weakness (principal) | CPT/HCPCS: A0998 ==

== ENCOUNTER 2024-07-09 03:01 | Outpatient (CLI) | payer MEDICARE, OTHER, SELFPAY | END 2024-07-09 03:02 | disposition home or self-care (01) | LOC: AMB 07-12 09:37 | PROVIDERS: PCP Family Medicine; Visit Provider Family Medicine | DX: S09.90XA Unspecified injury of head, initial encounter (principal); W18.30XA Fall on same level, unspecified, initial encounter; Y92.002 Bathroom of unspecified non-institutional (private) residence as the place of occurrence of the external cause | CPT/HCPCS: A0425; A0427 ==

== ENCOUNTER 2024-07-09 03:57 | Emergency (ER) | payer MEDICARE, OTHER, SELFPAY ==
[2024-07-09] VITALS (13 sets, daily range): BP systolic 174–204; BP diastolic 71–91; PULSE 63–72; RESP 16–18; TEMP 36.1–36.4; O2SAT 91–96
--- OUTSIDE RECORDS SUMMARY | 2024-07-09 04:00 | XMS_ITS | Continuity of Care Document ---
Author Organization [facility] Address [address] [place] [address] Insurance Providers Payer Plan Claims Address Claims Phone Policy Number Group Number Relation Employer Guarantor Name Guarantor Guarantor Address Guarantor Phone [id number] [address] [address], [place] [address] tel:[phone] [id number] Chester Borrego 1955 [address] [place] [id number] [employer]UM[employer] A CHOIC E PPO MR [address] [address], [facility] [place] [address] [id number] Self Nava Borrego [address] [place] [id number] [employer] [address], [place] [address] [id number] [phone] Self Nava Borrego [address] [place] [id number] Problems Condition ICD9 code ICD10 code SNOMED code Start Date End Date S tatus Acute respiratory failure with hypoxia J96.01 02/23/2024 Active Essential (primary) hypertension I10 02/23/2024 Active Anemia, unspecified D64.9 02/23/2024 A ctive Anxiety disorder, unspecified F41.9 02/23/2024 Active Vitamin D deficiency, unspecified E55.9 02/23/2024 Active emt intermediate (current) use of aspirin Z79.82 02/23/2024 Active detention (current) use of insulin Z79.4 02/23/2024 Active [...] Vitamin D deficiency, unspecified E55.9 02/23/2024 Active emt intermediate (current) use of anticoagulants Z79.01 02/23/2024 Active Presence of prosthetic heart valve Z95.2 02/23/2024 Active Personal history of transient ischemic attack (TIA), 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.73 02/23/2024 Active Encounter for therapeutic drug level monitoring Z51.81 02/23/2024 Act иван Results Test Value / Unit Interpretation Reference Ran Blood chemistry[[id number]] Glucose [Mass/volume] in Ser um or Plasma [2345-7] 108 mg/dL N Blood chemistry[[id number]] Glucose [Mass/volume] in Ser um or Plasma [2345-7] 181 mg/dL N Blood chemistry[[id number]] Glucose [Mass/volume] in Ser um or Plasma [2345-7] 226 mg/dL N Blood chemistry[[id number]] Glucose [Mass/volume] in Ser um or Plasma [2345-7] 165 mg/dL N Blood chemistry[[id number]] Glucose [Mass/volume] in Ser um or Plasma [2345-7] 131 mg/dL N Blood chemistry[[id number]] Glucose [Mass/volume] in Ser um or Plasma [2345-7] 225 mg/dL N Blood chemistry[[id number]] Glucose [Mass/volume] in Ser um or Plasma [2345-7] 202 mg/dL N Tuberculosis reaction wheal[ 35440-0] Tuberculosis reaction wheal [48550-3] See note NEG TB test Blood chemistry[[id number]] Glucose [Mass/volume] in Ser um or Plasma [2345-7] 143 mg/dL N Blood chemistry[[id number]] Glucose [Mass/volume] in Ser um or Plasma [...] or Plasma [2345-7] 223 mg/dL N Blood chemistry[[id number]] Glucose [Mass/volume] in Ser um or Plasma [2345-7] 154 mg/dL N Blood chemistry[] Glucose [Mass/volume] in Ser um or Plasma [2345-7] 117 mg/dL N Blood chemistry[[id number]] Glucose [Mass/volume] in Ser um or Plasma [...] or Plasma [2345-7] 146 mg/dL N Blood chemistry[[id number]] Glucose [Mass/volume] in Ser um or Plasma [2345-7] 246 mg/dL N Blood chemistry[] Glucose [Mass/volume] in Ser um or Plasma [2345-7] 186 mg/dL N Blood chemistry[[id number]] Glucose [Mass/volume] in Ser um or Plasma [2345-7] 127 mg/dL N Blood chemistry[[id number]] Glucose [Mass/volume] in Ser um or Plasma [2345-7] 119 mg/dL N Blood chemistry[[id number]] Glucose [Mass/volume] in Ser um or Plasma [2345-7] 290 mg/dL N Blood chemistry[[id number]] Glucose [Mass/volume] in Ser um or Plasma [2345-7] 158 mg/dL N Blood chemistry[] Glucose [Mass/volume] in Ser um or Plasma [2345-7] 172 mg/dL N Blood chemistry[[id number]] Glucose [Mass/volume] in Ser um or Plasma [2345-7] 108 mg/dL N Blood chemistry[] Glucose [Mass/volume] in Ser um or Plasma [2345-7] 139 mg/dL N Blood chemistry[] Glucose [Mass/volume] in Ser um or Plasma [2345-7] 129 mg/dL N INR in Platelet poor plasma by Coagulation assay[0811-6] INR in Platelet poor plasma by Coagulation assay [0191-6] 3.1 0 N Blood chemistry[] Glucose [Mass/volume] [...] or Plasma [2345-7] 140 mg/dL N Blood chemistry[[id number]] Glucose [Mass/volume] in Ser um or Plasma [2345-7] 274 mg/dL N Blood chemistry[[id number]] Glucose [Mass/volume] in Ser um or Plasma [2345-7] 284 mg/dL N Blood chemistry[[id number]] Glucose [Mass/volume] in Ser um or Plasma [2345-7] 247 mg/dL N Blood chemistry[[id number]] Glucose [Mass/volume] in Ser um or Plasma [2345-7] 142 mg/dL N Blood chemistry[[id number]] Glucose [Mass/volume] in Ser um or Plasma [2345-7] 325 mg/dL N Blood chemistry[[id number]] Glucose [Mass/volume] in Ser um or Plasma [2345-7] 228 mg/dL N Blood chemistry[[id number]] Glucose [Mass/volume] in Ser um or Plasma [2345-7] 239 mg/dL N Blood chemistry[[id number]] Glucose [Mass/volume] in Ser um or Plasma [2345-7] 145 mg/dL N Blood chemistry[[id number]] Glucose [Mass/volume] in Ser um or Plasma [2345-7] 284 mg/dL N Blood chemistry[[id number]] Glucose [Mass/volume] in Ser um or Plasma [2345-7] 300 mg/dL N Blood chemistry[[id number]] Glucose [Mass/volume] in Ser um or Plasma [2345-7] 284 mg/dL N Blood chemistry[[id number]] Glucose [Mass/volume] in Ser um or Plasma [2345-7] 178 mg/dL N Blood chemistry[[id number]] Glucose [Mass/volume] in Ser um or Plasma [2345-7] 157 mg/dL N Blood chemistry[[id number]] Glucose [Mass/volume] in Ser um or Plasma [...] A Day, Monitor for bruising/bleedi ng. Notify MD/TECHNOLOGY INTEGRATION SPECIALIST of concerns. Next INR date on 03/17/2024 [...] A Day, Monitor for bruising/bleedi ng notify MD/TECHNOLOGY INTEGRATION SPECIALIST of concerns, next INR 02/24/24 oral 1.0 [...] A Day, Monitor for bruising/bleedi ng, notify MD/TECHNOLOGY INTEGRATION SPECIALIST of concerns, next INR 03/01/24 oral 1.0 [...] A Day, Monitor for bruising/bleedi ng. Notify MD/TECHNOLOGY INTEGRATION SPECIALIST of concerns. Next INR date on 03/17/2024 [...]
--- OUTSIDE RECORDS SUMMARY | 2024-07-09 04:01 | XMS_ITS | Clinical Summary ---
Author Organization [employer] [facility] Address [address] [place] [address] Care Team Providers Care Appointment Setter Name Role Phone LivierMelvi Unavailable [phone] Roxanna Leon RN Unavailable Unavailab Hilda Ramirez MD Primary Care Provider [facility] [place] Unavailable [phone] [facility] [place] Unavailable Ariella Rowe Unavailable [phone] Allergies Active Allergy Reactions Criticality Noted Date Comments Menaquinone-7 (Vitamin K2) Anaphylaxis High 01/29/2022 Phytonadione (Vitamin K1) Anaphylaxis High 2 Unresponsive episode after receiving IV vit K - suspected anaphylactic reaction, responding to epinephrine...Michael Garcia MD 04/12/2021 6:50 PM. Pollen Extracts Runny Nose Low 05/26/2017 Medications aspirin chewable 81 mg chewable tabletIndications :S/P AVR (aortic valve replacement) Chew 1 Tablet (81 mg) by mouth once daily with a meal. 0 022 Active Insulin Syringe-Needle U-100 0.5 mL 31 gauge x /16Indications: Type 2 diabetes mellitus with diabetic polyneuropathy, without long-term current use of insulin (HC) For administering insulin at home. 300 Each 3 022 Active blood-glucose meterIndications: Type 2 diabetes mellitus with diabetic polyneuropathy, without long-term current use of insulin (HC) Dispense meter, test strips, lancets covered by pt ins. E11.65 IDDM type II, uncontrolled - Test 3 times/day. 1 Each 023 Active continuous glucose monitor SENSOR KIT (FreeStyle Mainor 2 Sensor)Indication s:Type 2 diabetes mellitus with diabetic polyneuropathy, with long-term current use of insulin (HC) To be used to read blood sugars per millwright supervisor's directions. 6 Each 3 024 Active acetaminophen (TYLENOL EXTRA STRGTH) [...] (For severe pain). 26 Tablet 025 Active blood sugar diagnostic (Contour Next Test Strips) stripIndications: Type 2 diabetes mellitus with diabetic polyneuropathy, without long-term current use of insulin (HC) test 4 times daily 100 Each 3 025 Active apixaban 5 mg tabletIndications :Acute ischemic stroke (HC),Anticoagulat ion monitoring, INR range 2-3,Patent foramen ovale (HC) Take 1 Tablet (5 mg) by mouth two times daily. Active furosemide 40 mg tabletIndications :S/P AVR (aortic valve replacement) TAKE 1 TABLET EVERY MORNING 90 Tablet 3 Active carvediloL 12.5 mg tabletIndications :HTN (hypertension) Take 1 Tablet (12.5 mg) by mouth two times daily with meals. 180 Tablet 1 Active Coenzyme Q10 (Co Q-10) 200 mg capsuleIndication s:Hypercholestero lemia Take 1 Capsule (200 mg) by mouth once daily. 90 Capsule 3 Active Lantus Solostar U-100 Insulin 100 unit/mL (3 mL) penIndications:Ty pe 2 diabetes mellitus with diabetic polyneuropathy, without long-term current use of insulin (HC) Inject 30 units subcutaneous before bedtime. 60 mL Active nystatin 100,000 unit/gram creamIndications: Yeast infection of the skin Apply topically to affected area(s) two times daily. 30 g 5 Active FLUoxetine 10 mg capsuleIndication s:Depression, recurrent,Anxiety TAKE 1 CAPSULE EVERY MORNING 90 Capsule 1 Active insulin aspart (U-100) 100 unit/mL (3 mL) penIndications:Ty pe 2 diabetes mellitus with diabetic polyneuropathy, with long-term current use of insulin (HC) Inject 10 units subcutaneous three times daily before meals. 60 mL Active lisinopriL 40 mg tabletIndications :HTN (hypertension) Take 1 Tablet (40 mg) by mouth once daily. 90 Tablet Active warfarin 2 mg tabletIndications :Acute ischemic stroke (HC),Anticoagulat ion monitoring, INR range 2-3,Patent foramen ovale (HC) Take by mouth 6 mg (2 mg x 3) every day in the evening OR as directed 270 Tablet Active amLODIPine 10 mg tabletIndications :HTN (hypertension) Take 1 Tablet (10 mg) by mouth once daily. 90 Tablet Active atorvastatin 40 mg tabletIndications :Other hyperlipidemia Take 1 Tablet (40 mg) by mouth once daily. 90 Tablet 2 025 Active Coenzyme Q10 (CO Q-10) 200 mg capsuleIndication s:Hypercholestero lemia Take 1 capsule by mouth once daily. 90 capsule 3 017 2024 Discontinued(* Availability/F ormulary change/Cost of medication) FLUoxetine (PROZAC) 10 mg capsuleIndication s:Depression, recurrent,Anxiety TAKE 1 CAPSULE EVERY MORNING 90 Capsule 1 024 2024 Discontinued(* Availability/F ormulary change/Cost of medication) Lantus Solostar U-100 Insulin 100 unit/mL (3 mL) penIndications:Ty pe 2 diabetes mellitus with diabetic polyneuropathy, without long-term current use of insulin (HC) Inject 30 units subcutaneous before bedtime. 60 mL 024 2024 Discontinued(* Availability/F ormulary change/Cost of medication) carvediloL (COREG) 12.5 mg tabletIndications :HTN (hypertension) Take 1 Tablet (12.5 mg) by mouth two times daily with meals. 180 Tablet 1 024 2024 Discontinued(* Availability/F ormulary change/Cost of medication) atorvastatin (LIPITOR) 40 mg tabletIndications :Other hyperlipidemia TAKE 1 TABLET DAILY 90 Tablet 3 024 2024 Discontinued(* Availability/F ormulary change/Cost of medication) lisinopriL (PRINIVIL; ZESTRIL) 40 mg tabletIndications :HTN (hypertension) TAKE 1 TABLET DAILY 90 Tablet 025 2024 Discontinued furosemide (LASIX) 40 mg tabletIndications :S/P AVR (aortic valve replacement) TAKE 1 TABLET EVERY MORNING 90 Tablet 025 2024 Discontinued insulin aspart, U-100, (NOVOLOG FLEXPEN) 100 unit/mL (3 mL) penIndications:Ty pe 2 diabetes mellitus with diabetic polyneuropathy, with long-term current use of insulin (HC) Inject 10 units subcutaneous three times daily before meals. 27 mL 3 025 2024 Discontinued(* Availability/F ormulary change/Cost of medication) amLODIPine (NORVASC) 10 mg tabletIndications :HTN (hypertension) Take 1 Tablet (10 mg) by mouth once daily. 90 Tablet 025 2024 Discontinued nystatin 100,000 unit/gram creamIndications: Yeast infection of the skin Apply topically to affected area(s) two times daily. 30 g 5 025 2024 Discontinued(* Availability/F ormulary change/Cost of medication) warfarin 2 mg tabletIndications :Acute ischemic stroke (HC),Anticoagulat ion monitoring, INR range 2-3,Patent foramen ovale (HC) Take by mouth 6 mg (2 mg x 3) every day in the evening OR as directed 025 2024 Discontinued(R eorder (E-cancel not sent)) lisinopriL 40 mg tabletIndications :HTN (hypertension) TAKE 1 TABLET DAILY 90 Tablet 025 2024 Discontinued(* Availability/F ormulary change/Cost of medication) amLODIPine 10 mg tabletIndications :HTN (hypertension) TAKE 1 TABLET DAILY 90 Tablet 025 2024 Discontinued(* Availability/F ormulary change/Cost of medication) furosemide 40 mg tabletIndications :S/P AVR (aortic valve replacement) Take 1 Tablet (40 mg) by mouth once daily in the morning. 90 Tablet 025 2024 Discontinued(D uplicate therapy (E-cancel not sent)) warfarin 2 mg tabletIndications :Acute ischemic stroke (HC),Anticoagulat ion monitoring, INR range 2-3,Patent foramen ovale (HC) Take by mouth 6 mg (2 mg x 3) every day in the evening OR as directed 270 Tablet 025 2024 Discontinued(* Availability/F ormulary change/Cost of medication) amLODIPine 10 mg tabletIndications :HTN (hypertension) Take 1 Tablet (10 mg) by mouth once daily. 90 Tablet 025 2024 Discontinued(* Availability/F ormulary change/Cost of medication) atorvastatin 40 mg tabletIndications :Other hyperlipidemia Take 1 Tablet (40 mg) by mouth once daily. 90 Tablet 2 025 2024 Discontinued(* Availability/F ormulary change/Cost of medication) Active Problems Problem Noted Date Diagnosed Date [...] replacement) 05/16/2021 Overview (05/16/2021): Aortic Valve - Clutch INSPIRIS RESILIA Aortic Valve - 21mm - [id number] - SN: [id number] - Implanted by MD Terell Cedillo on [...] Encounters Date Type Department Care Team Description 07/08/2024 Telephone [email or web address] [address] [place] [address] [id number] [place] [address] Jennifer Barriga, PharmD Medication Management ([facility] Prescription Assistance- XARELTO / ELIQUIS) 07/06/2024 Anticoagulation (warfarin) [facility] [address] [place] [address] 1, [facility]tico[facility] (Home Care) 06/29/2024 Anticoagulation (warfarin) [address] [address] 1, [facility]ticoagulation (Home care) 06/24/2024 2:25 PM CDT Office Visit [facility] [address] [place] [address] Hilda Cheema MD Medicare ANNUAL (subsequent) Visit (69 yr/); Medication Management (Patient unclear as to what meds she is taking and with her new pill sorter she is confused on how to use it.) 06/24/2024 Travel 06/24/[address] [address] Hilda Cheema MD Refill Request (atorvastatin / amLODIPine) 06/23/2024 Telephone [facility] [address] [place] [address] Hilda Cheema MD Refill Request 06/22/2024 Telephone [facility] [address] [place] [address] Hilda Cheema MD Anticoagulation (Dosing ) 06/22/2024 Nurse Triage [facility] [address] [place] [address] Hilda Cheema MD Medication Management 06/22/2024 Telephone [facility] [address] [place] [address] Hilda Cheema MD Error-please disregard (A user error has taken place: encounter opened in error, closed for administrative reasons /) 06/22/2024 Telephone [facility] [address] [place] [address] Hilda Cheema MD Anticoagulation 06/22/2024 Telephone [facility] [address] [place] [address] Hilda Cheema MD FYI (fall) 06/22/2024 Refill [facility] [address] [place] [address] Hilda Cheema MD Medication Management (Medication: did not specify which ); Refill Request (Amlodipine/Apixaban/ Atorvastatin/Carvedil ol/Coenzyme Q10/Fluoxetine /Furosemide/Insulin aspart/Lantus/Lisinop ril/Warfarin/Nystatin Cream) 06/22/2024 Anticoagulation (warfarin) [facility] [address] [place] [address] 1, [facility] Anticoagulation (Home care) 06/21/2024 Telephone [facility] [address] [place] [address] Hilda Cheema MD Medication Management (verbal orders) 06/21/2024 Refill [facility] [address] [place] [address] Hilda Cheema MD Refill Request (Furosemide) 06/18/2024 Telephone [facility] [address] [place] [address] Hilda Cheema MD Anticoagulation 06/18/2024 Anticoagulation (warfarin) [facility] [address] [place] [address] 1, [facility] Anticoagulation 06/18/2024 Refill [facility] [address] [place] [address] Hilda Cheema MD Refill Request (Amlodipine) 06/17/2024 1:15 PM CDT Orders Only [facility] [address] [place] [address] Lab, [facility] 06/17/2024 Travel 06/15/2024 Anticoagulation (warfarin) [facility] [address] [place] [address] 1, [facility] Anticoagulation (Chart update) 06/15/2024 Telephone [facility] [address] [place] [address] Hilda Cheema MD Referral (OT verbal orders) 06/15/2024 Refill [facility] [address] [place] [address] Hilda Cheema MD Refill Request (Lisinopril) 06/08/2024 2:00 PM CDT Orders Only [facility] [address] [place] [address] Lab, [facility] 06/08/2024 Telephone [facility] [address] [place] [address] Hilda Cheema MD Anticoagulation 06/08/2024 Anticoagulation (warfarin) [facility] [address] [place] [address] 1, [facility] Anticoagulation (Home Care/Lab today) 06/08/2024 Travel 06/04/2024 Telephone [facility] [address] [place] [address] Hilda Cheema MD Lab 06/02/2024 E-Consult [facility] [address] [facility] [address] [place] [address] Lucille Shah, PharmD 06/02/2024 Telephone [facility] [address] [place] [address] Hilda Cheema MD Anticoagulation (Warfarin vs DOAC ) 06/02/2024 Anticoagulation (warfarin) [facility] [address] [place] [address] 1, [facility] Anticoagulation (Home care ) 05/26/2024 Anticoagulation (warfarin) [facility] [address] [place] [address] 1, [facility] Anticoagulation 05/19/2024 Anticoagulation (warfarin) [facility] [address] [place] [address] 1, [facility] Anticoagulation (HC Venous to [place].) 05/18/2024 Orders Only [facility] Scanner 1 scan: (1-Ord) [facility], INR, 05/18/2024 05/12/2024 Anticoagulation (warfarin) [facility] [address] [place] [address] 1, [facility] Anticoagulation ([place]) 05/11/2024 Orders Only [facility] Scanner 1 scan: (1-Ord) [facility], INR, 05/11/2024 05/10/2024 Telephone [facility] [address] [place] [address] Hilda Cheema MD Anticoagulation (Outside lab orders) 05/04/2024 Telephone [facility] [address] [place] [address] Hilda Cheema MD Medication Management ( warfarin) 05/04/2024 Telephone [facility] [address] [place] [address] Hilda Cheema MD Anticoagulation (Aspirin clarification.) 05/04/2024 Anticoagulation (warfarin) [facility] [address] [place] [address] 1, [facility] Anticoagulation (Chart update.) 05/01/2024 Telephone [facility] [address] [place] [address] Hilda Cheema MD Medication Management 04/28/2024 Telephone [facility] [address] [place] [address] Hilda Cheema MD Outside Order (verbal mcc) 04/23/2024 Telephone [facility] [address] [facility] [address] [place] [address] Meliton Juarez MD 04/18/2024 Orders Only [facility] Scanner 1 scan: (1-Ord) [facility], US RENAL BLADDER, 04/18/2024 04/15/2024 2:00 PM PRACTICE PROFESSIONAL Ancillary Procedure [facility] [address] [place] [address] 04/15/2024 Orders Only [facility] Scanner 1 scan: (1-Ord) [facility], MR HEAD/BRAIN WO CON, 04/15/2024 04/14/2024 Orders Only [facility] Scanner 1 scan: (1-Ord) [facility], CT ANGIO HEAD, 04/14/2024 04/14/2024 Orders Only [facility] Scanner 1 scan: (1-Ord) [facility], CT ANGIO NECK , 04/14/2024 04/14/2024 Orders Only [facility] Scanner 1 scan: (1-Ord) [facility], ANGIO CHEST, 04/14/2024 04/14/2024 Orders Only [facility] Scanner 1 scan: (1-Ord) [facility], ABDOMEN PELVIS W CON, 04/14/2024 04/14/2024 Orders Only [facility] Scanner 1 scan: (1-Ord) [facility], CT HEAD/BRAIN WO CON, 04/14/2024 04/14/2024 Orders Only [facility] Scanner 1 scan: (1-Ord) [facility], ANGIO NECK , 04/14/2024 04/14/2024 Office Visit [address] [place] [address] Theo Kirkland MBBS Telehealth ([facility]) from Last 3 Months Immunizations Immunization Administration Dates Next Due AMB Influenza, IIV4 [...] Father (Age 56) OF A CVA OR PR Mother HAS UNKNOWN KARLY OLOGY LIVER DISEASE, [...] PHQ-2 Answer Date Recorded PHQ-2 TOTAL SCORE 6 06/24/2024 [facility]ational Stress Questionnaire Answer [...] on file Legal Sex Female 6:57 AM PRACTICE PROFESSIONAL Gender Identity Not on file Sexual Orientation [...] Sign Reading Time Taken Comments Blood Pressure 175/64 06/24/2024 2:56 PM CDT Pulse 51 06/24/2024 2:56 PM CDT Pulse range from 40 -62 Temperature 36.8 C (98.2 F) 02/22/2024 11:57 PM PRACTICE PROFESSIONAL Respiratory Rate 16 02/23/2024 10:0 5 AM PRACTICE PROFESSIONAL Oxygen Saturation 99% 06/24/2024 2:5 6 PM CDT Inhaled Oxygen Concentration - - Weight 90.4 kg (199 lb 3.2 oz) 06/24/2024 2:56 PM CDT Height 165.1 cm (5' 5) 06/24/2024 2:56 PM CDT Body Mass Index 33.15 06/24/2024 2:56 PM CDT Plan of Treatment Health Maintenance Due Date Last Done Comments RSV vaccine for adults or (1 - Risk 60-74 years 1-dose series) 2016 Mammogram for age 45-75 05/02/2023 05/02/19 23, 12/28/2019, 12/07/2018, Additional history exists COVID-19 vaccine series ( season) 2023 01/03/2022, 04/12/2020, 03/15/2020 Influenza Vaccine (Season Ended) 2024 11/11/2022, 01/03/2022, 11/27/2020, Additional history exists Colonoscopy through age 75 02/02/202502/02, 02/03/2020, 01/28/2020, Additional history exists BMI (ht and wt on same day) for age 18+ 06/24/2025 06/24/2024, 07/04/2023, 11/11/2022, Additional history exists Depression screening for age 12+ 06/24/2025 06/25/19 Medicare Wellness for age 65+ 06/25/2025, 07/04/2023, 05/01/2022 Tetanus booster 05/30/2027 05/29/2017, 11/18, 12/18/1992 Lipids for age 45-75 06/24/2029 06/24/2024, 11/11/2022, 01/03/2022, Additional history exists Tdap Completed 12/10/2006 Hepatitis B series for 19+ Completed 03/25, 08/16/2013, 06/29/2013 Hepatitis C screening for ag e 18-79 Completed 11/16/2018 Zoster (shingles) series for age 50+ Completed 12/15/2019, 11/16/2018 DEXA/DXA scan for age 65+ Completed 05/01/2022 Pneumococcal series for age 50+ Completed , 03/27/2021 Medical Devices Implanted Type Area Architectural Technologist Device Identifier Shelf Expiration Date Model / Serial / Lot Valve Aortic 21mm Inspirus Resilia Tissue - [id number] Implanted:Qty: 1 on 05/16/2021 by Agustin Cedillo MD at [facility] N/A: Aortic Valve [employer] 11/29/2024 [id number] / [id number] / Description:No rinse per man ufacture's instructions. Humeral Nail 8/7mm X 24cm Implanted:Qty: 1 on 02/17/2024 by Meliton Juarez MD at [facility] Left: Humerus [id number] / / Description:HUMERAL NAIL 8/7 MM X 24CM Screw Bone 5x34mm Trigen Cnclls Slf Tppng - [id number] Implanted:Qty: 1 on 02/17/2024 by Meliton Juarez MD at [facility] Left: Humerus [employer] 03/22/2033 [id number] / / [id number] Screw Bone 5x38mm Trigen Cnclls Slf Tppng - [id number] Implanted:Qty: 1 on 02/17/2024 by Meliton Juarez MD at [facility] Left: Humerus [employer] 04/19/2033 [id number] / / [id number] Screw 5.0 X 28 Self Tap Implanted:Qty: 1 on 02/17/2024 by Meliton Juarez MD at [facility] Left: Humerus 09/05/2033 [id number] / / [id number] Description:SCREW 5.0 X 28 S ELF TAP Screw Bone 4x20mm Trigen Jayesh Slf Tppng - [id number] Implanted:Qty: 1 on 02/17/2024 by Meliton Juarez MD at [facility] Left: Humerus [employer] 08/29/2033 [id number] / / [id number] Screw Bone 4x22mm Trigen Jayesh Slf Tppng - [id number] Implanted:Qty: 1 on 02/17/2024 by Meliton Juarez MD at [facility] Left: Humerus [employer] 08/30/2033 [id number] / / [id number] Procedures Procedure Name Priority Date/Time Associated Diagnosis Comments HEMOGLOBIN A1C MONITORING (POCT) Routine 06/24/2024 2:41 PM CDT Other hyperlipidemia Type 2 diabetes mellitus with diabetic polyneuropathy, with long-term current use of insulin (HC) LIPID PANEL W REFLEX MEASURED LDL Routine 06/24/2024 2:41 PM CDT Other hyperlipidemia Type 2 diabetes mellitus with diabetic polyneuropathy, with long-term current use of insulin (HC) PROTIME-INR Routine 06/17/2024 1:41 PM CDT H/O: Cardioembolic ischemic stroke Anticoagulation monitoring, INR range 2-3 Patent foramen ovale (HC) INR,POCT Routine 06/08/2024 1:47 PM CDT H/O: Cardioembolic ischemic stroke Anticoagulation monitoring, INR range 2-3 Patent foramen ovale (HC) SCAN-LABORATORY REPORT 12:00 AM CDT INR,POCT Routine 05/11/2024 3:20 PM CDT SCAN-LABORATORY REPORT 5 12:00 AM CDT SCAN-ULTRASOUND REPORT 5 12:00 AM PRACTICE PROFESSIONAL ECHO TTE COMPLETE WO CONTRAST W BUBBLE Routine 04/15/2024 3:50 PM PRACTICE PROFESSIONAL Elevated troponin Weakness A-fib (HC) SCAN-MRI INTERPRETATION 04/15/2024 12:00 AM PRACTICE PROFESSIONAL SCAN-CT INTERPRETATION 5 12:00 AM PRACTICE PROFESSIONAL SCAN-CT INTERPRETATION 5 12:00 AM PRACTICE PROFESSIONAL SCAN-CT INTERPRETATION 5 12:00 AM PRACTICE PROFESSIONAL SCAN-CT INTERPRETATION 5 12:00 AM PRACTICE PROFESSIONAL SCAN-CT INTERPRETATION 5 12:00 AM PRACTICE PROFESSIONAL SCAN-CT INTERPRETATION 5 12:00 AM PRACTICE PROFESSIONAL XR DXA BONE DENSITY 2 SITES AXIAL Routine 05/01/2022 1:35 PM CDT Postmenopausal XR MAMMO DELFINA BILAT SCREEN Routine 05/01/2022 1:15 PM CDT Visit for screening mammogram COLONOSCOPY 02/03/2020 11:11 AM PRACTICE PROFESSIONAL ANTI HCV Routine 11/16/2018 3:04 PM CDT Need for hepatitis C screening test from Last 3 Months or Most Recently Relevant to Health Maintenance Results * (ABNORMAL) LIPID PANEL W REFLEX MEASURED LDL (06/24/2024 2:41 PM CDT) Pathologist [facility] CHOLESTEROL, TOTAL 323(H) <200 mg/dL [facility] HDL CHOLESTEROL 58 > OR = 50 mg/dL [facility] TRIGLYCERIDES 239(H) <150 mg/dL [facility] Comment: If a non-fasting specimen was collected, consider repeat triglyceride testing on a fasting specimen if clinically indicated. Claire et al. J. of Clin. Lipidol. 2015;9:129-169. LDL-CHOLESTEROL 221(H) mg/dL (calc) [facility] Comment: LDL-C levels > or = 190 mg/dL may indicate familial hypercholesterolemia (FH). Clinical assessment and measurement of blood lipid levels should be considered for all first degree relatives of patients with an FH diagnosis. LDL Cholesterol (LDL-C) levels > or = 300 mg/dL may indicate homozygous familial hypercholesterolemia (HoFH). Untreated, these extremely high LDL-C levels can result in premature CV events and mortality. Patients should be identified early and provided appropriate interventions to reduce the cumulative LDL-C burden from . For questions about testing for familial hypercholesterolemia, please call [facility] Client Services at [phone]. Claire Alvarenga, et al. J National Lipid Association Recommendations for Patient-Centered Management of Dyslipidemia: Part 1 Journal of Clinical Lipidology 2015;9(2), 129-169. Manasa Mckeon et al. (2014). Homozygous familial hypercholesterolaemia: new insights and guidance for clinicians to improve detection and clinical management. Heart Journal, 35(32), 4678-2478. Reference range: <100 Desirable range <100 mg/dL for primary prevention; <70 mg/dL for patients with CHD or diabetic patients with > or = 2 CHD risk factors. LDL-C is now calculated using the Ruben-Rodriguez calculation, which is a validated novel method providing better accuracy than the Friedewald equation in the estimation of LDL-C. Ruben SS et al. SHIRLEY. 2013;310(19): 4820-1352 (http://education.[employer]/faq/CWF983) CHOL/HDLC RATIO 5.6(H) <5.0 (calc) [facility] NON HDL CHOLESTEROL 265(H) <130 mg/dL (calc) [facility] Comment: Non-HDL level > or = 220 is very high and may indicate genetic familial hypercholesterolemia (FH). Clinical assessment and measurement of blood lipid levels should be considered for all first-degree relatives of patients with an FH diagnosis. For patients with diabetes plus 1 major ASCVD risk factor, treating to a non-HDL-C goal of <100 mg/dL (LDL-C of <70 mg/dL) is considered a therapeutic option. Blood BLOOD SPECIMEN / Unknown 06/24/2024 2:41 PM CDT 06/24/2024 2:41 PM CDT Hilda Cheema MD CHEMISTRY Final R esult [facility] [address] [place] [address], [place] [phone] [facility] [address] [place] [address] * (ABNORMAL) POCT Hemoglobin A1C Monitoring (06/24/2024 2:41 PM CDT) POC HEMOGLOBIN A1C 12.9(H) <6.0 % OF TOTAL HGB [facility] Comment: Any point of care results exhibiting inconsistency with the patient's clinical status should be repeated using a different testing method. Blood BLOOD SPECIMEN / Unknown 06/24/2024 2:41 PM CDT 06/24/2024 2:42 PM CDT Hilda Cheema MD CHEMISTRY Final R esult [facility] [address] [place] [address], [place] [phone] [facility] [address] [place] [address] * (ABNORMAL) PROTIME-INR [86038.0] - Standing Order (06/17/2024 1:41 PM CDT) INR 0.9 <1.3 06/17/2024 10:27 PM CDT [facility] PROTIME 10.3(L) 10.6 - 12.4 sec 06/17/2024 10:27 PM CDT [facility] Blood BLOOD SPECIMEN / Unknown [facility] / Unknown 06/17/2024 1:41 PM CDT 06/17/2024 1:41 PM CDT Narrative [facility] - 06/17/2024 10:27 PM CDT Therapeutic Range 2.0-3.0 for most anticoagulated patients [...] seconds if the patient is on UFH. us Hilda Cheema MD HEMATOLOGY Final R esult Performing Organization Address City/[facility]/ZIP Co de Phone Number [facility] [address] [place] [address], [place] * (ABNORMAL) INR - POCT [[id number]] - Standing Order (06/08/2024 1:47 PM CDT) Only the most recent of2 resultswithin the time period is included. INR 1.3(H) ratio [facility] Comment: INRs >2.9 may be falsely elevated in patients receiving either unfractionated Heparin or Low Molecular Weight Heparin. Follow up testing in a hospital laboratory may be helpful if clinically indicated. INR results of > or = 5.0 should be verified using the standard venipuncture procedure. Reference Range 0.9-1.1 Moderate-intensity Warfarin Therapy 2.0-3.0 Higher-intensity Warfarin Therapy 3.0-4.0 PROTHROMBIN TIMEP 15.4(H) 10.5 - 13.1 sec [facility] Comment: Point of care fingerstick Prothrombin Time/INR results may vary from venous Prothrombin Time/INR methodologies. Any results exhibiting inconsistency with the patient's clinical status should be repeated using a venous Prothrombin Time/INR method. Blood BLOOD SPECIMEN / Unknown 06/08/2024 1:47 PM CDT 06/08/2024 1:47 PM CDT us Hilda Cheema MD LABORATORY Final R esult Performing Organization Address City/[facility]/ZIP Co de Phone Number [facility] [address] [place] [address], [place] [phone] [facility] [address] [place] [address] * SCAN-LABORATORY REPORT (05/18/2024 12:00 AM CDT) Only the most recent of2 resultswithin the time period is included. us Scanner OTHER Final Result * SCAN-ULTRASOUND REPORT (04/18/2024 12:00 AM PRACTICE PROFESSIONAL) Anatomical Region Laterality Modality Other us Scanner OTHER Final Result * ECHO TTE COMPLETE WO CONTRAST W BUBBLE (04/15/2024 3:50 PM PRACTICE PROFESSIONAL) AORTIC VALVE MEAN PG 20 mmHg EJECTION FRACTION 67 % LVEDD 4.7 cm Anatomical Region Laterality Modality Ultrasound 04/15/2024 2:11 PM PRACTICE PROFESSIONAL Narrative 04/15/2024 4:34 PM PRACTICE PROFESSIONAL ECHOCARDIOGRAM NAVA CHACON : 1955 68 years Study Date: 04/15/2024 2:11:46 PM Gender: F BP: 155/78 mmHg Height: 165.00 cm BSA: 2.00 m Weight: 93.00 kg Tech: LIUDMILA Referring MD: DINORA FLORIAN Site: [facility] Reading Location: Mobile IP Patient Location: Inpatient. Procedure: 2D w/ Bubbles, Color Doppler and Spectral Doppler. Indication for study: Elevated Troponin/ CVA/ CHF/ At-fib/ AVR Cardiac Rhythm: Regular.Study quality: Good. Final Impressions: 1. Normal left ventricular size, mildly increased wall thickness, normal global systolic function, calculated EF of 67 %. 2. Mild concentric left ventricular hypertrophy. 3. Grade 1 pattern of LV diastolic filling. 4. Mildly enlarged left atrium. 5. Increased left atrial pressure. 6. Right ventricular cavity size is normal, global systolic RV function is normal. 7. The aortic valve is functioning 21 mm Inspiris bioprosthesis AVR, no stenosis and no regurgitation. The aortic valve peak velocity is 3.0 m/s, the peak gradient is 36 mmHg, and the mean gradient is 20 mmHg. The aortic valve area is 1.21 cm with a dimensionless index of 0.38. The stroke volume index is 50.3 ml/m . 8. The mitral valve is sclerotic, mild mitral regurgitation. 9. Mitral stenosis with mildly increased mean gradient of 4.7 mmHg at a heart rate of 64. 10. Tricuspid valve is normal and trace tricuspid regurgitation. 11. Negative bubble study. Chamber Sizes and Function Normal left ventricular size, mildly increased wall thickness, normal global systolic function, calculated EF of 67 %. Mild concentric left ventricular hypertrophy. No resting regional wall motion abnormality visualized. Left atrial size is mildly enlarged. Left atrial pressure is increased. Right ventricular cavity size is normal, global systolic RV function is normal. The right atrium is normal. Right atrial volume index is 17 ml/m . Right atrial area is 14 cm . The pulmonary artery is of normal size and origin. The sinus of Valsalva is normal sized. The ascending aorta is normal sized. Valves, RV Pressures and Diastolic Function The aortic valve is functioning 21 mm Inspiris bioprosthesis replacement, no stenosis and no regurgitation. The mitral valve is sclerotic, mild mitral regurgitation. Moderate mitral annular calcification is present. A mildly increased gradient of 4.7 mmHg at a heart rate of 64 is calculated across the mitral valve using continuous Doppler examination. Spectral Doppler shows Grade 1 pattern of LV diastolic filling. The tricuspid valve is normal in structure and trace tricuspid regurgitation. Unable to assess right ventricular systolic pressure. The pulmonic valve is normal. No pulmonary regurgitation. TTE images do not appear adequate for transcather intervention with patient supine. Masses, Effusion, Shunts There is no pericardial effusion. The inferior vena cava is normal sized, respiratory size variation greater than 50%. Agitated saline injection showed no right to left shunt at rest or following Valsalva manuever. No left to right shunting was detected by limited color flow Doppler interrogation of the interatrial septum. MEASUREMENTS AND CALCULATIONS 2-D Measurements and LV Function: LVID (d) 4.7 cm Planimetered EF 67 % LVID (s) 3.0 cm LV FS% (2D) 36 % IVS (d) 1.4 cm LVOT diameter 2.0 cm LVPW (d) 1.3 cm HR 65 bpm Ao Sinus 2.8 cm LA Vol index 35 ml/m2 Ao Sinus ULN 3.8 cm * RA Vol index 17 ml/m2 Asc Ao 3.2 cm RA area 14 cm Asc Ao ULN 4.0 cm * RV Basal Diam 3.8 cm * Input BSA outside of range, reported values RV Mid Diam 2.7 cm correspond to BSA = 1.9 Diastology: Mitral Tissue Doppler E Peak 1.7 m/s e', Septum 0.06 m/s A Peak 1.7 m/s e', Lateral 0.11 m/s E/A 1.0 E/e' Average 19.31 DT 369 msec Aortic Valve: Vmax 3.0 m/s FUAD (V) 1.01 cm VTI 0.83 m FUAD (I) 1.21 cm LVOT V max 1.0 m/s Max PG 36 mmHg LVOT VTI 0.32 m Mean PG 20 mmHg SV 101 ml Dim Index 0.38 SV index 50 ml/m CO 6.5 l/min CI 3.3 l/min/m Mitral Valve: MVA 2.1 cm MV P 1/2 107 msec MV Mean G 5 mmHg MV VTI 0.63 m Tricuspid Valve and estimated PA pressures: TAPSE 1.6 cm . This study was interpreted by an [facility] accredited facility. CC: [facility] (med records) [facility], Med/Surg - IP [facility]. Final Procedure Note Jessica Basilio MD - 04/15/2024 ECHOCARDIOGRAM NAVA CHACON : 1955 68 years Study Date: 04/15/2024 2:11:46 PM Gender: F BP: 155/78 mmHg Height: 165.00 cm BSA: 2.00 m Weight: 93.00 kg Tech: LIUDMILA Referring MD: DINORA FLORIAN Site: [facility] Reading Location: Mobile IP Patient Location: Inpatient. Procedure: 2D w/ Bubbles, Color Doppler and Spectral Doppler. Indication for study: Elevated Troponin/ CVA/ CHF/ At-fib/ AVR Cardiac Rhythm: Regular.Study quality: Good. Final Impressions: 1. Normal left ventricular size, mildly increased wall thickness, normalglobal systolic function, calculated EF of 67 %. 2. Mild concentric left ventricular hypertrophy. 3. Grade 1 pattern of LV diastolic filling. 4. Mildly enlarged left atrium. 5. Increased left atrial pressure. 6. Right ventricular cavity size is normal, global systolic RV functionis normal. 7. The aortic valve is functioning 21 mm Inspiris bioprosthesis AVR, nostenosis and no regurgitation. The aortic valve peak velocity is 3.0 m/s,the peak gradient is 36 mmHg, and the mean gradient is 20 mmHg. The aorticvalve area is 1.21 cm with a dimensionless index of 0.38. The strokevolume index is 50.3 ml/m . 8. The mitral valve is sclerotic, mild mitral regurgitation. 9. Mitral stenosis with mildly increased mean gradient of 4.7 mmHg at aheart rate of 64. 10. Tricuspid valve is normal and trace tricuspid regurgitation. 11. Negative bubble study. Chamber Sizes and Function Normal left ventricular size, mildly increased wall thickness, normalglobal systolic function, calculated EF of 67 %. Mild concentric leftventricular hypertrophy. No resting regional wall motion abnormalityvisualized. Left atrial size is mildly enlarged. Left atrial pressure isincreased. Right ventricular cavity size is normal, global systolic RVfunction is normal. The right atrium is normal. Right atrial volume indexis 17 ml/m . Right atrial area is 14 cm . The pulmonary artery is ofnormal size and origin. The sinus of Valsalva is normal sized. Theascending aorta is normal sized. Valves, RV Pressures and Diastolic Function The aortic valve is functioning 21 mm Inspiris bioprosthesis replacement,no stenosis and no regurgitation. The mitral valve is sclerotic, mildmitral regurgitation. Moderate mitral annular calcification is present. Amildly increased gradient of 4.7 mmHg at a heart rate of 64 is calculatedacross the mitral valve using continuous Doppler examination. Spectral Doppler shows Grade 1 pattern of LV diastolic filling. Thetricuspid valve is normal in structure and trace tricuspid regurgitation.Unable to assess right ventricular systolic pressure. The pulmonic valveis normal. No pulmonary regurgitation. TTE images do not appear adequatefor transcather intervention with patient supine. Masses, Effusion, Shunts There is no pericardial effusion. The inferior vena cava is normal sized,respiratory size variation greater than 50%. Agitated saline injectionshowed no right to left shunt at rest or following Valsalva manuever. Noleft to right shunting was detected by limited color flow Dopplerinterrogation of the interatrial septum. MEASUREMENTS AND CALCULATIONS 2-D Measurements and LV Function: LVID (d) 4.7 cm Planimetered EF 67% LVID (s) 3.0 cm LV FS% (2D) 36% IVS (d) 1.4 cm LVOT diameter2.0 cm LVPW (d) 1.3 cm HR 65bpm Ao Sinus 2.8 cm LA Vol index 35ml/m2 Ao Sinus ULN 3.8 cm * RA Vol index 17ml/m2 Asc Ao 3.2 cm RA area 14cm Asc Ao ULN 4.0 cm * RV Basal Diam3.8 cm * Input BSA outside of range, reported values RV Mid Diam2.7 cm correspond to BSA = 1.9 Diastology: Mitral Tissue Doppler E Peak 1.7 m/s e', Septum 0.06 m/s A Peak 1.7 m/s e', Lateral 0.11 m/s E/A 1.0 E/e' Average 19.31 DT 369 msec Aortic Valve: Vmax 3.0 m/s FUAD (V) 1.01 cm VTI 0.83 m FUAD (I) 1.21 cm LVOT V max 1.0 m/s Max PG 36 mmHg LVOT VTI 0.32 m Mean PG 20 mmHg SV 101 ml Dim Index 0.38 SV index 50 ml/m CO 6.5 l/min CI 3.3 l/min/m Mitral Valve: MVA 2.1 cm MV P 1/2 107 msec MV Mean G 5 mmHg MV VTI 0.63 m Tricuspid Valve and estimated PA pressures: TAPSE 1.6 cm . This study was interpreted by an [facility] accredited facility. CC: [facility] (med records) [facility], Med/Surg - IP [facility]. Final us Dinora Florian MD ECHO ORD Final Resu lt * SCAN-MRI INTERPRETATION (04/15/2024 12:00 AM PRACTICE PROFESSIONAL) Anatomical Region Laterality Modality Other us Scanner OTHER Final Result * SCAN-CT INTERPRETATION (04/14/2024 12:00 AM PRACTICE PROFESSIONAL) Only the most recent of6 resultswithin the time period is included. Anatomical Region Laterality Modality Other us Scanner OTHER Final Result * (ABNORMAL) XR DXA BONE DENSITY 2 SITES AXIAL [[id number]] (05/01/2022 1:35 PM CDT) Anatomical Region Laterality [...] Patients: Results are automatically released to your [email or web address]) account once available, in compliance with federal regulations. This means that you may see your results before your provider has had a chance to review them. Please allow 2-3 business days for your provider to comment on the results. XR DXA Bone Mineral Density (BMD) EXAM LOCATION: [address] [address] PATIENT NAME: Nava Chacon DATE OF : [...] two scanners are made by the same millwright supervisor. PROCEDURE: Dual-energy x-ray absorptiometry performed with routine [...] For Patients: As a result of the 21st Century Cures Act, medical imaging exams and procedure reports are released immediately into your electronic medical record. You may view this report before your referring provider. If you have questions, please contact your health care provider. XR MAMMO DELFINA BILAT SCREEN [[id number]] CLINICAL HISTORY: This is an asymptomatic 66 [...] R esult * COLONOSCOPY (02/03/2020 11:11 AM PRACTICE PROFESSIONAL) 02/03/2020 11:1 1 AM PRACTICE PROFESSIONAL Narrative Transcriptions Ruben Ritter MD - 02/03/2020 [...] adequate candidate for conscious sedation. The [id number] was passed through the anus and advanced [...] reponse to care. [facility] and nursing notes for moderate sedation details. Total physician intraservice time was 22 minutes. Ruben Ritter MD 02/03/2020 12:00:28 PM This report has been signed electronically. Note Initiated On: 02/03/2020 11:11 AM Procedure Code(s): --- Professional --- 23736, Colonoscopy, flexible; with biopsy, single or multiple Diagnosis Code(s): --- Professional --- Z86.010, Personal history of colonicpolyps CPT copyright 2019 [employer]. All rights reserved. The codes documented in this report are preliminary and upon environmental compliance officer reviewmay be revised to meet current compliance requirements. Scope In: 11:37:54 AM Scope Withdrawal Time 0 hours 8 minutes 13 seconds Scope Out: 11:56:43 AM us Ruben Ritter MD PROCEDURE ORD Final Res ult * ANTI HCV (11/16/2018 3:04 PM CDT) HEPATITIS C ANTIBODY Non-React иван Non-React иван 11/17/2018 2:58 AM CDT [email or web address] Comment:Antibodies to HCV no t detected; does not exclude the possibility of exposure to HCV. Blood BLOOD SPECIMEN / Unknown Venipuncture / Unknown 11/16/2018 3:04 PM CDT 11/16/2018 3:04 PM CDT us Roxanna Mcclure MD SEND OUTS Final R esult [email or web address] [address] [place] [address], from Last 3 Months or Most Recently Relevant to Health Maintenance Insurance [employer] MEDICARE PART A HB ONLY MEDICARE PART B HB ONLY [facility] MEDICARE PPS FOR LIFE Advance Directives Documents on File Type Date Recorded Patient Enterprise Data Architect Expl anation POLST 06/20/2022 Healthcare Directive 05/11/2021 [...] Code Status Discussion: Reviewed Preferences Care Teams Appointment Setter Relationship Specialty Start Date End Date Hilda Cheema MD [address] [place] [address] PCP - General Family Practice 02/08/21 Melvi Maier MBBS [address] [place] [address] Endocrinology Endocrinology 10/17/20 Roxanna Leon, RN [address] [place] [address] Nurse Navigator Oncology 12/12/20 [facility] [address] [address] 03/27/21 [facility] [address] [place] [id number] 05/25/21 Ariella Rowe COTA [address] [place], [place] [phone] Occupational Therapy 02/24/24
--- NOTE | 2024-07-09 04:08 | CRLHL7_ITS ---
For Patients: As a result of the Century Cures Act, medical imaging exams and procedure reports are released immediately into your electronic medical record. You may view this report before your referring provider. If you have questions, please contact your health care provider. INDICATION: Fall, blood thinners. COMPARISON: None. TECHNIQUE: CT of the brain / head without intravenous contrast. Multiplanar axial, coronal, and sagittal reformats were reconstructed. FINDINGS: No intracranial hemorrhage. 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 No acute or subacute cortically based infarct. Scattered white matter hypodensities may be related to chronic microvascular ischemia. Ventricles are dilated out of proportion to the degree of volume loss and there is crowding of the sulci with almost complete obliteration of the CSF spaces at the vertex. No obstructing ventricular lesion seen. No herniation/midline shift. No skull fractures. No worrisome focal bone lesion. IMPRESSION: 1. No intracranial hemorrhage. 2. 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 This could be contributing to the patient`s falls. Please note that all CT scans at this facility use dose modulation, iterative reconstruction, and/or weight-based dosing when appropriate to reduce radiation dose to as low as reasonably achievable. Dictated by Akilah Dacosta MD @ 07/09/2024 4:53:11 AM (Electronically Signed)
[2024-07-09 05:04] LABS: Lactate* 1.1 mmol/L (0.5-1.9)
[2024-07-09 05:09] LABS: Hematocrit 37.4 % (33.0-51.0); Hemoglobin* 11.6 gm/dL (12.0-16.0); Lymphocytes Percent Auto 11.4 % (20-44); Mean Corpuscular HGB Conc 31 gm/dL (32-36); Mean Corpuscular Hemoglobin 28 pg (26-34); Mean Corpuscular Volume 89 fL (80-100); Neutrophils Percent Auto 77.3 % (42.0-72.0); Platelet Count* 331 K/uL (140-440); RDW Coefficient of Variation % 14.8 % (11.5-15.5); Red Blood Count 4.22 m/uL (4.00-5.20); White Blood Count* 15.23 K/uL (4.50-11.00)
[2024-07-09 05:10] LABS: Basophils Percent Auto 0.6 % (0.0-3.0); Eosinophils Percent Auto 1.8 % (0.0-7.0); Immature Granulocytes Pct Auto 0.3 %; Monocytes Percent Auto 8.6 % (0.0-11.0)
[2024-07-09 05:11] LABS: Slide Review Reflex No
[2024-07-09 05:26] LABS: Chloride* 101 mmol/L (96-114); INR 1.28 (0.91-1.10); Prothrombin Time 16.9 Seconds; Sodium* 137 mmol/L (135-149)
[2024-07-09 05:27] LABS: Potassium* 3.7 mmol/L (3.6-5.1)
[2024-07-09 05:29] LABS: Alanine Aminotransferase* 17 U/L (4-35); Alkaline Phosphatase* 125 U/L (40-150); Anion Gap 1 mEq/L (7-15); Aspartate Amino Transferase* 27 U/L (12-35); Bilirubin Total* 0.4 mg/dL (0.1-1.5); Blood Urea Nitrogen* 19 mg/dL (7-30); Carbon Dioxide* 35 mmol/L (20-32); Creatinine* 0.9 mg/dL (0.5-1.5); Estimated Glomerular Filt Rate 70 ml/min; Total Protein* 5.7 g/dL (6.0-8.3)
[2024-07-09 05:30] LABS: Calcium* 8.6 mg/dL (8.4-10.6); Glucose* 213 mg/dL (60-115)
[2024-07-09 05:41] LABS: Troponin I* 0.05 ng/mL (0.01-0.04)
[2024-07-09 06:32] LABS: Appearance Urine Slightly Cloudy (Clear); Bilirubin Urine Negative (Negative); Blood Urine 2+ (Negative); Color Urine Yellow (Yellow); Glucose Urine Trace (Negative); Ketones Urine Negative (Negative); Leukocyte Esterase Urine Negative (Negative); Nitrite Urine Negative (Negative); Protein Urine 3+ (Negative); Urobilinogen Urine 0.2 (0.2-1.0); pH Urine 7.5 (5.0-8.5)
[2024-07-09 06:38] LABS: RBC Urine 0-2 (0-2); Squamous Epithelial Cell Urine Few (None-Few)
[2024-07-09 06:39] LABS: Bacteria Urine Moderate
--- NOTE | 2024-07-11 19:18 | ED.FALL ---
HPI - Fall General Date Seen: 07/09/24 Chief Complaint: Fall/Minor Trauma Stated Complaint: Fall Time Seen by Provider: 07/09/24 04:07 Source: patient and EMS Mode of arrival: EMS Limitations: altered mental status History of Present Illness HPI Narrative: 69-year-old female brought in by EMS in the middle of the night after a fall. She went into her bathroom and her legs got weak and she fell backwards. She hit the back of her head but did not lose consciousness. She denies severe head pain or neck pain at present. She has had two previous admissions this year for similar issues. There was a plan to discharge her to a care facility but apparently she improved to the point where she was sent home with home health aide. They have been trying to get her meds set up so she can take them reliably but she acknowledges that she still does not. She had her Medicare annual wellness exam with Dr. Cheema a couple of weeks ago and her A1c was 11.9 in her blood pressure was elevated. She denies any fevers or chills. She denies any urinary symptoms. No chest pains or shortness of breath. He denies any other injury associated with this fall. She lives at home with her . She is unsure if she took her medications yesterday or not. She is also uncertain if she took her insulin. Related Data Home Medications ?Medication ?Instructions ?Recorded ?Confirmed amlodipine 10 mg tablet 10 mg PO DAILY 01/24/22 04/14/24 furosemide 40 mg tablet 40 mg PO DAILY 01/24/22 04/14/24 atorvastatin 40 mg tablet 40 mg PO DAILY 02/25/22 04/14/24 coenzyme Q10 100 mg capsule 200 mg PO DAILY 06/17/22 04/14/24 carvedilol 12.5 mg tablet 12.5 mg PO BID 02/12/24 04/14/24 fluoxetine 10 mg capsule 10 mg PO DAILY 02/12/24 04/14/24 insulin glargine 100 unit/mL (3 30 unit subcut HS 02/12/24 04/14/24 mL) subcutaneous pen (Lantus Solostar U-100 Insulin) lisinopril 40 mg tablet 40 mg PO DAILY 02/12/24 04/14/24 acetaminophen 500 mg tablet 1,000 mg PO Q6H PRN 03/18/24 04/14/24 (Acetaminophen Pain Relief) lidocaine HCl 4 % topical cream 1 applic topical DAILY PRN 03/18/24 03/18/24 (Aspercreme (lidocaine HCl)) polyethylene glycol 3350 17 17 g PO DAILY PRN 03/18/24 03/18/24 gram/dose oral powder (Miralax) sennosides 8.6 mg-docusate sodium 1 tab-cap PO BID 03/18/24 03/18/24 50 mg tablet (Colace 2-In-1) Previous Rx's ?Medication ?Instructions ?Recorded apixaban 5 mg tablet (Eliquis) 5 mg PO BID #60 tabs 04/27/24 insulin aspart U-100 100 unit/mL 10 unit (0.1 mL) subcut TIDWM #12 04/27/24 (3 mL) subcutaneous pen (Novolog mL FlexPen U-100 Insulin aspart) cephalexin 500 mg capsule 500 mg PO TID #30 caps 07/11/24 Allergies Allergy/AdvReac Type Severity Reaction Status Date / Time phytonadione (vitamin K1) Allergy Severe Anaphylaxis Verified 10/14/23 13:22 enoxaparin (From Lovenox) Allergy Diarrhea Verified 10/14/23 13:22 menaquinone-7 (vitamin K2) Allergy Anaphylaxis Verified 10/14/23 13:22 (vitamin K2) Review of Systems Narrative: Review systems is outlined above otherwise noted to be negative. [facility] Medical History (Updated 07/09/24 @ 07:52 by García Garcia MD) Unable to care for self ?Z78.9 - Other specified health status (ICD-10) Metabolic encephalopathy ?G93.41 - Metabolic encephalopathy (ICD-10) Lower extremity edema ?R60.0 - Localized edema (ICD-10) Discharge planning issues ?Z75.8 - Other problems related to medical facilities and other health care (ICD-10) Dementia ?F03.90 - Unspecified dementia, unspecified severity, without behavioral disturbance, psychotic disturbance, mood disturbance, and anxiety (ICD-10) Humeral fracture ?S42.309A - Unspecified fracture of shaft of humerus, unspecified arm, initial encounter for closed fracture (ICD-10) Chronic anticoagulation ?Z79.01 - [facility] (current) use of anticoagulants (ICD-10) Noncompliance with medication regimen ?Z91.148 - Patient's other noncompliance with medication regimen for other reason (ICD-10) Bladder incontinence ?R32 - Unspecified urinary incontinence (ICD-10) Spell of altered consciousness ?R40.4 - Transient alteration of awareness (ICD-10) CVA (cerebral vascular accident) ?I63.9 - Cerebral infarction, unspecified (ICD-10) Physical debility ?R53.81 - Other malaise (ICD-10) Paroxysmal atrial fibrillation ?I48.0 - Paroxysmal atrial fibrillation (ICD-10) Insulin dependent diabetes mellitus Falls ?W19.XXXA - Unspecified fall, initial encounter (ICD-10) Anemia ?D64.9 - Anemia, unspecified (ICD-10) 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 (ICD-10) Gastroenteritis ?K52.9 - Noninfective gastroenteritis and colitis, unspecified (ICD-10) Gait instability ?R26.81 - Unsteadiness on feet (ICD-10) Ataxia ?R27.0 - Ataxia, unspecified (ICD-10) Poorly controlled diabetes mellitus ?E11.65 - Type 2 diabetes mellitus with hyperglycemia (ICD-10) Sprain of foot, left ?S93.602A - Unspecified sprain of left foot, initial encounter (ICD-10) Injury of knee, right ?S89.91XA - Unspecified injury of right lower leg, initial encounter (ICD-10) Frailty ?R54 - Age-related physical debility (ICD-10) Osteoarthritis of right knee ?M17.11 - Unilateral primary osteoarthritis, right knee (ICD-10) Medication noncompliance due to cognitive impairment ?R41.9 - Unspecified symptoms and signs involving cognitive functions and awareness (ICD-10) ?Z91.148 - Patient's other noncompliance with medication regimen for other reason (ICD-10) Heart failure ?I50.9 - Heart failure, unspecified (ICD-10) History of DVT (deep vein thrombosis) ?Z86.718 - Personal history of other venous thrombosis and embolism (ICD-10) Endocarditis ?I38 - Endocarditis, valve unspecified (ICD-10) Hyperlipidemia ?E78.5 - Hyperlipidemia, unspecified (ICD-10) Hypertension ?I10 - Essential (primary) hypertension (ICD-10) Diabetic polyneuropathy ?E11.42 - Type 2 diabetes mellitus with diabetic polyneuropathy (ICD-10) Diabetes ?E11.9 - Type 2 diabetes mellitus without complications (ICD-10) Anticoagulated with warfarin ?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 (ICD-10) Pleural effusion on left ?J90 - Pleural effusion, not elsewhere classified (ICD-10) Multiple subsegmental pulmonary emboli without acute cor pulmonale ?I26.94 - Multiple subsegmental pulmonary emboli without acute cor pulmonale (ICD-10) History of Clostridioides difficile infection ?Z86.19 - Personal history of other infectious and parasitic diseases (ICD-10) Enteritis due to Clostridium difficile ?A04.72 - Enterocolitis due to Clostridium difficile, not specified as recurrent (ICD-10) Congestive heart failure ?I50.9 - Heart failure, unspecified (ICD-10) Cellulitis of right lower extremity ?L03.115 - Cellulitis of right lower limb (ICD-10) Acute kidney injury ?N17.9 - Acute kidney failure, unspecified (ICD-10) Surgical History 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) History of partial colectomy ?Z90.49 - Acquired absence of other specified parts of digestive tract (ICD-10) History of partial gastrectomy ?Z90.3 - Acquired absence of stomach [part of] (ICD-10) H/O splenectomy ?Z90.81 - Acquired absence of spleen (ICD-10) History of open heart surgery (05/17/21) ?Z98.890 - Other specified postprocedural states (ICD-10) History of appendectomy ?Z90.49 - Acquired absence of other specified parts of digestive tract (ICD-10) Family History Mother Colon cancer Diabetes Cirrhosis Brother Colon cancer Father Stroke High blood pressure Heart disease Social History Narrative: She lives at home with her daughter, Oscar, and her . She reports they live in a small home. She primarily walks around the house holding onto furniture. She has a cane that she occasionally uses, especially when she goes out. She [place] on [address]. Her daughter sets up her medications but notes that she does not know if her mom is reliably taking her medications. Daughter specifically notes that her mom has probably been forgetting her insulin at times and her warfarin has been missed at least a couple times in the past week or so. What is your current living situation?: I presently have a place to live Problems where you live: no known problems Problems where you live details: N/A In the past 12 months, utilities in danger of being shut off: no In past 12 months, lack of transportation kept you from medical appts, meetings, work, or getting things needed for daily living: no Highest level of school completed/degree received: Associate degree: occupational, technical, vocational program Smoking Status: Former smoker Do you use any of these nicotine containing products: None Second hand tobacco smoke exposure: No How often do you have a drink containing alcohol: never How often do you have six or more drinks on one occasion: Never AUDIT-C Alcohol total score: 0 Non-prescribed substance use: denies use Caffeine: Yes How often does anyone, including family, friends and others, physically hurt you: never How often does anyone, including family, friends and others, insult or talk down to you: never How often does anyone, including family, friends and others, threaten you with harm: never How often does anyone, including family, friends and others, scream or curse at you: never Do you think of yourself as: straight/heterosexual Gender Identity: female service: No Exam Narrative: Exam Narrative: Vitals noted. HEENT: She has a poor memory and apparently struggles to take her medication correctly. She has small tender spot on the back of her head. No fluctuance or crepitus. Conjunctiva clear. Tympanic membranes are pearly white bilaterally. Posterior pharynx is clear without erythema or exudate. Neck is supple without adenopathy, thyromegaly, carotid bruit. Lungs: Clear to auscultation in all solorio. No wheezes, rales, rhonchi. Heart: Regular rate and rhythm without murmur. Abdomen: Soft and nontender. No guarding, rigidity, rebound. Bowel sounds are normal. No palpable masses. No CVA or suprapubic tenderness. Extremities: No cyanosis. 1+ edema. Good distal pulses. Skin: No abnormalities noted of the exposed skin. Neurologic: Awake, alert, fully oriented. Neurologic exam is nonfocal. Some memory loss but she is able to recount the events of this evening. Course Course ED Course: Patient is seen and examined. CBC shows a mild anemia and mild leukocytosis. Both are chronic. Basic metabolic panel LFTs are unremarkable. Lactate is normal. Urinalysis does not appear infected. Urine culture came back two days later showing Klebsiella sensitive to cefazolin. Reevaluation(s) Reevaluation #1: She is able to ambulate with a walker throughout the emergency room and is discharged home in the care of her . Vital Signs Vital signs: Initial Vital Signs Temperature 96.9 F L 07/09/24 04:11 Temperature Source Temporal Artery Scan 07/09/24 04:11 Pulse Rate 69 07/09/24 04:11 Respiratory Rate 16 07/09/24 04:11 Blood Pressure 197/75 H 07/09/24 04:11 Blood Pressure Mean 115 H 07/09/24 04:11 Blood Pressure Position Sitting 07/09/24 04:11 Pulse Oximetry 96 07/09/24 04:11 Oxygen Delivery Method Room Air 07/09/24 04:11 Vital Signs Temperature 96.9 F L 07/09/24 04:11 Pulse Rate 69 07/09/24 04:11 Respiratory Rate 16 07/09/24 04:11 Blood Pressure 197/75 H 07/09/24 04:11 Pulse Oximetry 96 07/09/24 04:11 Oxygen Delivery Method Room Air 07/09/24 04:11 Temperature 97.5 F L 07/09/24 06:22 Pulse Rate 63 07/09/24 07:35 Respiratory Rate 18 07/09/24 06:22 Blood Pressure 204/71 H 07/09/24 07:35 Pulse Oximetry 92 07/09/24 07:35 Oxygen Delivery Method Room Air 07/09/24 06:22 MDM - Fall Lab Data Labs: Lab Results 07/09/24 07/09/24 Range/Units 05:00 06:20 WBC 15.23 H (4.50-11.00) K/uL RBC 4.22 (4.00-5.20) m/uL Hgb 11.6 L (12.0-16.0) gm/dL Hct 37.4 (33.0-51.0) % MCV 89 (80-100) fL MCH 28 (26-34) pg MCHC 31 L (32-36) gm/dL RDW Coeff of Aditi 14.8 (11.5-15.5) % Plt Count 331 (140-440) K/uL Neut % (Auto) 77.3 H (42.0-72.0) % Lymph % (Auto) 11.4 L (20-44) % [place] % (Auto) 8.6 (0.0-11.0) % Eos % (Auto) 1.8 (0.0-7.0) % Baso % (Auto) 0.6 (0.0-3.0) % Neut # (Auto) 11.80 H (1.7-7.0) K/uL Lymph # (Auto) 1.70 (0.90-2.90) K/uL [place] # (Auto) 1.30 H (0.00-0.90) K/UL Eos # (Auto) 0.30 (0.00-0.50) K/uL Baso # (Auto) 0.10 (0.00-0.30) K/uL Abs Immat Gran (auto) 0.00 (0.00-0.30) K/uL Imm/Tot Granulo (auto) 0.3 % INR 1.28 H (0.91-1.10) Sodium 137 (135-149) mmol/L Potassium 3.7 (3.6-5.1) mmol/L Chloride 101 (96-114) mmol/L Carbon Dioxide 35 H (20-32) mmol/L Anion Gap 1 L (7-15) mEq/L BUN 19 (7-30) mg/dL Creatinine 0.9 (0.5-1.5) mg/dL Estimated GFR 70 ml/min Glucose 213 H (60-115) mg/dL Lactate 1.1 (0.5-1.9) mmol/L Calcium 8.6 (8.4-10.6) mg/dL Total Bilirubin 0.4 (0.1-1.5) mg/dL AST 27 (12-35) U/L ALT 17 (4-35) U/L Alkaline Phosphatase 125 (40-150) U/L Troponin I 0.05 H (0.01-0.04) ng/mL Total Protein 5.7 L (6.0-8.3) g/dL Albumin 3.0 L (3.3-5.0) g/dL Urine Color Yellow (Yellow) Urine Appearance Slightly Cloudy A (Clear) Urine pH 7.5 (5.0-8.5) Ur Specific [place] 1.020 (1.000-1.030) Urine Protein 3+ A (Negative) Urine Glucose (UA) Trace A (Negative) Urine Ketones Negative (Negative) Urine Blood 2+ A (Negative) Urine Nitrite Negative (Negative) Urine Bilirubin Negative (Negative) Urine Urobilinogen 0.2 (0.2-1.0) Ur Leukocyte Esterase Negative (Negative) Urine RBC 0-2 (0-2) Urine WBC 2-5 (0-5) Ur Squamous Epith Cells Few (None-Few) Urine Bacteria Moderate A (None) Discharge Plan Discharge Clinical Impression: Falls, Paroxysmal atrial fibrillation Patient Disposition: Home, Self-Care Condition: Stable Additional Instructions: Take all your meds as prescribed. Use your walker at all times. Follow up with Dr Cheema next week. Prescriptions: No Action amlodipine 10 mg tablet 10 mg PO DAILY furosemide 40 mg tablet 40 mg PO DAILY coenzyme Q10 100 mg capsule 200 mg PO DAILY lidocaine HCl [Aspercreme (lidocaine HCl)] 4 % cream 1 applic topical DAILY PRN sennosides-docusate sodium [Colace 2-In-1] 8.6-50 mg tablet 1 tab-cap PO BID polyethylene glycol 3350 [Miralax] 17 gram/dose powder 17 g PO DAILY PRN acetaminophen [Acetaminophen Pain Relief] 500 mg tablet 1,000 mg PO Q6H PRN atorvastatin 40 mg tablet 40 mg PO DAILY carvedilol 12.5 mg tablet 12.5 mg PO BID fluoxetine 10 mg capsule 10 mg PO DAILY insulin glargine [Lantus Solostar U-100 Insulin] 100 unit/mL (3 mL) insulin pen 30 unit subcut HS lisinopril 40 mg tablet 40 mg PO DAILY insulin aspart U-100 [Novolog FlexPen U-100 Insulin] 100 unit/mL (3 mL) Insulin Pen 10 unit subcut TIDWM Qty: 12 0RF Eliquis 5 mg tablet 5 mg PO BID Qty: 60 2RF cephalexin 500 mg capsule 500 mg PO TID Qty: 30 0RF Follow Up/Referrals: Hilda Cheema MD [Primary Care Provider, Family Practice] Stand Alone Forms: [employer] Info Instructions
== END 2024-07-09 11:25 | disposition home or self-care (01) ==
PROVIDERS: Emergency Provider Family Medicine; PCP Family Medicine
DX: I48.0 Paroxysmal atrial fibrillation (principal); W19.XXXA Unspecified fall, initial encounter
CPT/HCPCS: 36415; 70450; 80053; 81001; 81003; 83605; 84484; 85025; 85610; 87086; 99283; 99284

== ENCOUNTER 2024-07-10 08:03 | Outpatient (CLI) | payer MEDICARE, OTHER, SELFPAY | END 2024-07-10 08:04 | disposition home or self-care (01) | LOC: AMB 07-12 11:20 | PROVIDERS: PCP Family Medicine; Visit Provider Emergency Medicine Emergency Medical Services | DX: S49.81XA Other specified injuries of right shoulder and upper arm, initial encounter (principal); R53.1 Weakness; W18.30XA Fall on same level, unspecified, initial encounter; Y92.009 Unspecified place in unspecified non-institutional (private) residence as the place of occurrence of the external cause | CPT/HCPCS: A0425; A0433 ==

== ENCOUNTER 2025-01-27 12:17 | Outpatient (CLI) | payer BC, OTHER, SELFPAY | END 2025-01-27 12:18 | disposition home or self-care (01) | LOC: AMB 01-31 16:16 | PROVIDERS: PCP Family Medicine; Visit Provider Family Medicine | DX: R40.4 Transient alteration of awareness (principal); E16.2 Hypoglycemia, unspecified | CPT/HCPCS: A0425; A0427 ==

== ENCOUNTER 2025-01-27 12:34 | Emergency (ER) | payer BC, OTHER, SELFPAY ==
[2025-01-27] VITALS (44 sets, daily range): BP systolic 122–156; BP diastolic 44–93; PULSE 48–63; RESP 8–23; TEMP 35.6; O2SAT 90–99; BMI 34.3
[2025-01-27 12:48] LABS: Glucose, Point-of-Care* 62 mg/dl (60-115)
--- NOTE | 2025-01-27 12:54 | CRLHL7_ITS ---
For Patients: As a result of the Century Cures Act, medical imaging exams and procedure reports are released immediately into your electronic medical record. You may view this report before your referring provider. If you have questions, please contact your health care provider. INDICATION: Trauma/fall COMPARISON: 05/08/2023 CTA neck TECHNIQUE: CT of the cervical spine without contrast. FINDINGS: Alignment: Straightening of the cervical spine. 1 millimeter anterolisthesis of C2 on C3. 2 millimeters anterolisthesis of C3 on C4 and C4 on C5. Vertebra: No evident acute displaced fracture or traumatic malalignment. Cervical vertebral body height is grossly preserved. There are multilevel degenerative changes characterized by disc height loss, osteophytosis, facet hypertrophy, and end plate degenerative irregularity. Osseous spinal canal stenosis most conspicuous at C5-6 where it is mild. There is multilevel osseous neural foraminal narrowing such as at the right C3-4 where it is [id number]. Paraspinal muscles: Unremarkable noncontrast CT appearance. Additional findings: There are atherosclerotic vascular calcifications. IMPRESSION: 1. No evident acute displaced fracture. 2. Mild to moderate degenerative change of the cervical spine. Please note that all CT scans at this facility use dose modulation, iterative reconstruction, and/or weight-based dosing when appropriate to reduce radiation dose to as low as reasonably achievable. Dictated by Bharath Beltran MD @ 01/27/2025 2:59:23 PM (Electronically Signed)
--- NOTE | 2025-01-27 12:58 | CRLHL7_ITS ---
For Patients: As a result of the Century Cures Act, medical imaging exams and procedure reports are released immediately into your electronic medical record. You may view this report before your referring provider. If you have questions, please contact your health care provider. INDICATION: Trauma with syncope and altered mental status on Coumadin. Hypoglycemia. COMPARISON: 07/09/2024 CT head TECHNIQUE: CT of the head without contrast. FINDINGS: Brain, ventricles, and extra-axial spaces: No acute intracranial hemorrhage. Similar small multifocal old infarcts such as within the left occipital lobe and right cerebellar hemisphere. Moderate hypoattenuating changes in the white matter which are nonspecific, but commonly attributable to chronic microangiopathic change. Similar disproportionate enlargement of the supratentorial ventricles compared to the size of the sulci. There are intracranial vascular calcifications. Bones: No acute osseous findings. Small amount of polypoid mucosal thickening and frothy secretion within the left sphenoid sinus. Visualized mastoid air cells are clear. Additional findings: Status post bilateral lens replacement. IMPRESSION: 1. No acute intracranial hemorrhage. 2. Similar disproportionate enlargement of the supratentorial ventricles compared to the size of the sulci raising the possibility of normal pressure hydrocephalus in the appropriate clinical context. 3. 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 4. Moderate hypoattenuating changes in the white matter which are nonspecific, but commonly attributable to chronic microangiopathic change. Please note that all CT scans at this facility use dose modulation, iterative reconstruction, and/or weight-based dosing when appropriate to reduce radiation dose to as low as reasonably achievable. Dictated by Bharath Beltran MD @ 01/27/2025 2:47:22 PM (Electronically Signed)
--- NOTE | 2025-01-27 13:05 | ED.GENADULT ---
HPI - General Adult General Date Seen: 01/27/25 Chief complaint: Diabetic Related Problem Stated complaint: Low blood sugar Time Seen by Provider: 01/27/25 12:54 History of Present Illness HPI narrative: 69-year-old female presenting to the ER today by EMS with altered mental status and hypoglycemia. History is obtained through a combination of EMS report, initial history from the patient's daughter, Oscar, paperwork from the patient's care facility. The patient is not really able to add any additional history because of her altered mental status She does have a history of type 2 diabetes. She is on insulin for that. It sounds like she does use long-acting insulin typically at bedtime each night. Daughter is exactly sure of her current dose but she believes that the recorded dose of 30 units of Lantus q.h.s. is probably correct. The patient was also recently started on short-acting insulin to use with meals. She does 10 units of short acting insulin before each meal. She used to do a sliding scale but no longer does that. She just moved from a care center in [place] to live at the [facility] here in in [place] 2 days ago on Friday. She now is re-establishing primary care with Dr. Caldwell. Her daughter notes that she has had several episodes over the past couple weeks where she dropped a little bit low with her blood pressure ring it is mildly altered. He is happens a couple times per week. She has never had any episodes where she dropped down into the 20s or completely became unresponsive, until today. As far as we know she has been healthy and well lately. No recent illness. No fever. No chest pain. Normal appetite. No nausea vomiting or diarrhea. She was normal this morning and apparently ate breakfast at her usual time. She had been checked by her care providers. The patient administers her own medications but her providers do an observation of the administration. She apparently gave herself her lunchtime dose of insulin, and then went to the bathroom before going down for lunch. When she did not come down for lunch her care providers came to check on her and apparently found her on the floor in her room. She was unresponsive. Initial fingerstick blood sugar was 27. She received some oral cake frosting and EMS was called. By the time EMS arrived they checked other sugar and had come up to 45 but she remained unresponsive. EMS to 7 davila IV and have started an infusion D10. She gotten part of that initial bolus and sugar came up to 87 and the patient's mental status is improving. GCS is now up to 14. She is able to answer some questions but is not oriented to day or place. No seizure activity. EMS notes a small bruise on the dorsum of her right hand but no other signs of injury. No sign of external bleeding. Daughter believes she may be on Coumadin. Unsure of her last INR. She does have a history cardiac arrest after receiving IV vitamin K in the past. Related Data Home Medications ?Medication ?Instructions ?Recorded ?Confirmed amlodipine 10 mg tablet 10 mg PO DAILY 01/24/22 04/14/24 furosemide 40 mg tablet 40 mg PO DAILY 01/24/22 04/14/24 atorvastatin 40 mg tablet 40 mg PO DAILY 02/25/22 04/14/24 coenzyme Q10 100 mg capsule 200 mg PO DAILY 06/17/22 04/14/24 carvedilol 12.5 mg tablet 12.5 mg PO BID 02/12/24 04/14/24 fluoxetine 10 mg capsule 10 mg PO DAILY 02/12/24 04/14/24 insulin glargine 100 unit/mL (3 30 unit subcut HS 02/12/24 04/14/24 mL) subcutaneous pen (Lantus Solostar U-100 Insulin) lisinopril 40 mg tablet 40 mg PO DAILY 02/12/24 04/14/24 acetaminophen 500 mg tablet 1,000 mg PO Q6H PRN 03/18/24 04/14/24 (Acetaminophen Pain Relief) lidocaine HCl 4 % topical cream 1 applic topical DAILY PRN 03/18/24 03/18/24 (Aspercreme (lidocaine HCl)) polyethylene glycol 3350 17 17 g PO DAILY PRN 03/18/24 03/18/24 gram/dose oral powder (Miralax) sennosides 8.6 mg-docusate sodium 1 tab-cap PO BID 03/18/24 03/18/24 50 mg tablet (Colace 2-In-1) Previous Rx's ?Medication ?Instructions ?Recorded apixaban 5 mg tablet (Eliquis) 5 mg PO BID #60 tabs 04/27/24 insulin aspart U-100 100 unit/mL 10 unit (0.1 mL) subcut TIDWM #12 04/27/24 (3 mL) subcutaneous pen (Novolog mL FlexPen U-100 Insulin aspart) cephalexin 500 mg capsule 500 mg PO TID #30 caps 07/11/24 Allergies Allergy/AdvReac Type Severity Reaction Status Date / Time phytonadione (vitamin K1) Allergy Severe Anaphylaxis Verified 10/14/23 13:22 enoxaparin (From Lovenox) Allergy Diarrhea Verified 10/14/23 13:22 menaquinone-7 (vitamin K2) Allergy Anaphylaxis Verified 10/14/23 13:22 (vitamin K2) [facility] Medical History (Updated 01/27/25 @ 19:19 by Germain Villaseñor MD) Unable to care for self ?Z78.9 - Other specified health status (ICD-10) Metabolic encephalopathy ?G93.41 - Metabolic encephalopathy (ICD-10) Lower extremity edema ?R60.0 - Localized edema (ICD-10) Discharge planning issues ?Z75.8 - Other problems related to medical facilities and other health care (ICD-10) Dementia ?F03.90 - Unspecified dementia, unspecified severity, without behavioral disturbance, psychotic disturbance, mood disturbance, and anxiety (ICD-10) Humeral fracture ?S42.309A - Unspecified fracture of shaft of humerus, unspecified arm, initial encounter for closed fracture (ICD-10) Chronic anticoagulation ?Z79.01 - retirement (current) use of anticoagulants (ICD-10) Noncompliance with medication regimen ?Z91.148 - Patient's other noncompliance with medication regimen for other reason (ICD-10) Bladder incontinence ?R32 - Unspecified urinary incontinence (ICD-10) Spell of altered consciousness ?R40.4 - Transient alteration of awareness (ICD-10) CVA (cerebral vascular accident) ?I63.9 - Cerebral infarction, unspecified (ICD-10) Physical debility ?R53.81 - Other malaise (ICD-10) Paroxysmal atrial fibrillation ?I48.0 - Paroxysmal atrial fibrillation (ICD-10) Insulin dependent diabetes mellitus Falls ?W19.XXXA - Unspecified fall, initial encounter (ICD-10) Anemia ?D64.9 - Anemia, unspecified (ICD-10) 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 (ICD-10) Gastroenteritis ?K52.9 - Noninfective gastroenteritis and colitis, unspecified (ICD-10) Gait instability ?R26.81 - Unsteadiness on feet (ICD-10) Ataxia ?R27.0 - Ataxia, unspecified (ICD-10) Poorly controlled diabetes mellitus ?E11.65 - Type 2 diabetes mellitus with hyperglycemia (ICD-10) Sprain of foot, left ?S93.602A - Unspecified sprain of left foot, initial encounter (ICD-10) Injury of knee, right ?S89.91XA - Unspecified injury of right lower leg, initial encounter (ICD-10) Frailty ?R54 - Age-related physical debility (ICD-10) Osteoarthritis of right knee ?M17.11 - Unilateral primary osteoarthritis, right knee (ICD-10) Medication noncompliance due to cognitive impairment ?R41.9 - Unspecified symptoms and signs involving cognitive functions and awareness (ICD-10) ?Z91.148 - Patient's other noncompliance with medication regimen for other reason (ICD-10) Heart failure ?I50.9 - Heart failure, unspecified (ICD-10) History of DVT (deep vein thrombosis) ?Z86.718 - Personal history of other venous thrombosis and embolism (ICD-10) Endocarditis ?I38 - Endocarditis, valve unspecified (ICD-10) Hyperlipidemia ?E78.5 - Hyperlipidemia, unspecified (ICD-10) Hypertension ?I10 - Essential (primary) hypertension (ICD-10) Diabetic polyneuropathy ?E11.42 - Type 2 diabetes mellitus with diabetic polyneuropathy (ICD-10) Diabetes ?E11.9 - Type 2 diabetes mellitus without complications (ICD-10) Anticoagulated with warfarin ?Z79.01 - retirement (current) use of anticoagulants (ICD-10) Pleural effusion on left ?J90 - Pleural effusion, not elsewhere classified (ICD-10) Multiple subsegmental pulmonary emboli without acute cor pulmonale ?I26.94 - Multiple subsegmental pulmonary emboli without acute cor pulmonale (ICD-10) History of Clostridioides difficile infection ?Z86.19 - Personal history of other infectious and parasitic diseases (ICD-10) Enteritis due to Clostridium difficile ?A04.72 - Enterocolitis due to Clostridium difficile, not specified as recurrent (ICD-10) Congestive heart failure ?I50.9 - Heart failure, unspecified (ICD-10) Cellulitis of right lower extremity ?L03.115 - Cellulitis of right lower limb (ICD-10) Acute kidney injury ?N17.9 - Acute kidney failure, unspecified (ICD-10) Surgical History 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) History of partial colectomy ?Z90.49 - Acquired absence of other specified parts of digestive tract (ICD-10) History of partial gastrectomy ?Z90.3 - Acquired absence of stomach [part of] (ICD-10) H/O splenectomy ?Z90.81 - Acquired absence of spleen (ICD-10) History of open heart surgery (05/17/21) ?Z98.890 - Other specified postprocedural states (ICD-10) History of appendectomy ?Z90.49 - Acquired absence of other specified parts of digestive tract (ICD-10) Family History Mother Colon cancer Diabetes Cirrhosis Brother Colon cancer Father Stroke High blood pressure Heart disease Social History Narrative: She lives at home with her daughter, Oscar, and her . She reports they live in a small home. She primarily walks around the house holding onto furniture. She has a cane that she occasionally uses, especially when she goes out. She lives on [address]. Her daughter sets up her medications but notes that she does not know if her mom is reliably taking her medications. Daughter specifically notes that her mom has probably been forgetting her insulin at times and her warfarin has been missed at least a couple times in the past week or so. What is your current living situation?: I presently have a place to live Problems where you live: no known problems Problems where you live details: N/A In the past 12 months, utilities in danger of being shut off: no In past 12 months, lack of transportation kept you from medical appts, meetings, work, or getting things needed for daily living: no Highest level of school completed/degree received: Associate degree: occupational, technical, vocational program Smoking Status: Former smoker Do you use any of these nicotine containing products: None Second hand tobacco smoke exposure: No How often do you have a drink containing alcohol: never How often do you have six or more drinks on one occasion: Never AUDIT-C Alcohol total score: 0 Non-prescribed substance use: denies use Caffeine: Yes How often does anyone, including family, friends and others, physically hurt you: never How often does anyone, including family, friends and others, insult or talk down to you: never How often does anyone, including family, friends and others, threaten you with harm: never How often does anyone, including family, friends and others, scream or curse at you: never Do you think of yourself as: straight/heterosexual Gender Identity: female service: No Exam Narrative: Exam Narrative: Constitutional: Appears well-developed and well-nourished. GCS is 14. She is groggy but answer some questions and is able to tell me that she feels very tired. She is nauseous. She denies any pain. She has a ring on the ring finger of her right hand. We tried to remove it but it is too tight and does not fit over her knuckle. She is able to tell me that she has been wearing it for 40 years. HENT: Head: Atraumatic. Nose: Nose normal. Mouth/Throat: Oral mucosa is clear and moist. no trismus. Pharynx normal. Tonsils symmetric. No tonsillar enlargement, erythema, or exudate. Eyes: Conjunctivae normal. EOM normal. Pupils equal, round, and reactive to light. No scleral icterus. Neck: Normal range of motion. Neck supple. No tracheal deviation present. Cardiovascular: Normal rate, regular rhythm. No gallop. No friction rub. No murmur heard. Symmetric radial artery pulses Pulmonary/Chest: Effort normal. No stridor. No respiratory distress. No wheezes. No rales. No rhonchi . No tenderness. Abdominal: Dry emesis on her shirt. Soft. Bowel sounds normal. No distension. No mass. No tenderness. No rebound. No guarding. Musculoskeletal: RUE: Normal range of motion. No tenderness. No deformity. Small skin tear with surrounding ecchymosis on the dorsum of right hand. No underlying bony deformity. LUE: Normal range of motion. No tenderness. No deformity RLE: Normal range of motion. No edema. No tenderness. No deformity LLE: Normal range of motion. No edema. No tenderness. No deformity Lymph: No cervical adenopathy. Neurological: She was incontinent of urine. Drowsy. GCS 14. Oriented to person and place but not date. No focal deficits. She is mildly confused but is following commands and is able to answer simple questions. She is not able to provide any history about what happened today. Normal strength with 5 /5 bilateral car unloader helper, bicep, tricep, and lower extremity strength. No focal deficits.. CN II-VII intact. No sensory deficit. GCS eye subscore is 4. GCS verbal subscore is 5. GCS motor subscore is 6. Normal coordination Skin: Skin is warm and dry. No rash noted. No pallor. Normal capillary refill. Psychiatric: Normal mood. Normal affect. Const: Vital Signs, click to edit/add: Vital Signs - 24 hr 01/27/25 12:40 01/27/25 12:41 01/27/25 12:43 Temperature 96.0 F L Pulse Rate 56 L 55 L Pulse Rate [Pulse Oximeter] 52 L Respiratory Rate 14 18 Blood Pressure 135/44 L Blood Pressure [Le ft Upper Arm] 135/44 L Pulse Oximetry 90 93 94 Oxygen Delivery Me thod Room Air 01/27/25 12:45 01/27/25 13:00 01/27/25 13:27 Temperature Pulse Rate 52 L 50 L 53 L Pulse Rate [Pulse Oximeter] Respiratory Rate Blood Pressure Blood Pressure [Le ft Upper Arm] Pulse Oximetry 94 95 97 Oxygen Delivery Me thod 01/27/25 13:29 01/27/25 13:30 01/27/25 13:42 Temperature Pulse Rate 49 L 48 L 52 L Pulse Rate [Pulse Oximeter] Respiratory Rate 14 16 Blood Pressure 152/71 H 156/93 H Blood Pressure [Le ft Upper Arm] Pulse Oximetry 95 95 98 Oxygen Delivery Me thod 01/27/25 13:42 01/27/25 13:45 01/27/25 14:00 Temperature Pulse Rate 52 L 51 L 48 L Pulse Rate [Pulse Oximeter] Respiratory Rate 16 23 Blood Pressure 156/93 H Blood Pressure [Le ft Upper Arm] Pulse Oximetry 98 95 99 Oxygen Delivery Me thod Room Air 01/27/25 14:14 01/27/25 14:15 01/27/25 14:45 Temperature Pulse Rate 50 L 51 L 53 L Pulse Rate [Pulse Oximeter] Respiratory Rate Blood Pressure 146/69 H Blood Pressure [Le ft Upper Arm] Pulse Oximetry 99 98 96 Oxygen Delivery Me thod 01/27/25 14:46 01/27/25 15:00 01/27/25 15:02 Temperature Pulse Rate 51 L 52 L 51 L Pulse Rate [Pulse Oximeter] Respiratory Rate 12 Blood Pressure 156/71 H 138/57 L Blood Pressure [Le ft Upper Arm] Pulse Oximetry 96 94 96 Oxygen Delivery Me thod 01/27/25 15:15 01/27/25 15:22 01/27/25 15:30 Temperature Pulse Rate 54 L 52 L 52 L Pulse Rate [Pulse Oximeter] Respiratory Rate Blood Pressure 139/76 Blood Pressure [Le ft Upper Arm] Pulse Oximetry 96 94 95 Oxygen Delivery Me thod 01/27/25 15:42 01/27/25 15:45 01/27/25 16:00 Temperature Pulse Rate 56 L 54 L 52 L Pulse Rate [Pulse Oximeter] Respiratory Rate Blood Pressure 141/66 H Blood Pressure [Le ft Upper Arm] Pulse Oximetry 95 98 98 Oxygen Delivery Me thod 01/27/25 16:02 01/27/25 16:15 01/27/25 16:22 Temperature Pulse Rate 57 L 54 L 56 L Pulse Rate [Pulse Oximeter] Respiratory Rate Blood Pressure 139/63 145/56 H Blood Pressure [Le ft Upper Arm] Pulse Oximetry 97 96 98 Oxygen Delivery Me thod 01/27/25 16:30 01/27/25 16:41 01/27/25 16:45 Temperature Pulse Rate 63 54 L 55 L Pulse Rate [Pulse Oximeter] Respiratory Rate 14 12 Blood Pressure 149/62 H Blood Pressure [Le ft Upper Arm] Pulse Oximetry 96 94 94 Oxygen Delivery Me thod 01/27/25 17:00 01/27/25 17:02 01/27/25 17:15 Temperature Pulse Rate 55 L 56 L 53 L Pulse Rate [Pulse Oximeter] Respiratory Rate 12 Blood Pressure 146/63 H Blood Pressure [Le ft Upper Arm] Pulse Oximetry 97 98 94 Oxygen Delivery Me thod 01/27/25 17:21 01/27/25 17:41 01/27/25 18:00 Temperature Pulse Rate Pulse Rate [Pulse Oximeter] Respiratory Rate 15 21 Blood Pressure 133/61 148/81 H Blood Pressure [Le ft Upper Arm] Pulse Oximetry Oxygen Delivery Me thod 01/27/25 18:02 01/27/25 18:03 01/27/25 18:15 Temperature Pulse Rate Pulse Rate [Pulse Oximeter] Respiratory Rate 15 10 L 14 Blood Pressure 148/64 H Blood Pressure [Le ft Upper Arm] Pulse Oximetry Oxygen Delivery Me thod 01/27/25 18:22 01/27/25 18:42 01/27/25 18:45 Temperature Pulse Rate 62 61 Pulse Rate [Pulse Oximeter] Respiratory Rate 13 14 Blood Pressure 147/74 H 140/57 H Blood Pressure [Le ft Upper Arm] Pulse Oximetry 93 93 Oxygen Delivery Me thod Room Air Room Air 01/27/25 19:00 01/27/25 19:02 01/27/25 19:15 Temperature Pulse Rate 63 62 59 L Pulse Rate [Pulse Oximeter] Respiratory Rate 20 8 L Blood Pressure 122/54 L Blood Pressure [Le ft Upper Arm] Pulse Oximetry 91 92 90 Oxygen Delivery Me thod Course Course ED Course: Patient arrived by EMS and was brought immediately to room 8. I met the EMS providers as they were dropping or often history is obtained. Blood sugars per EMS were reported to be initially 27, than 45, then up to 87 after receiving part of a D10 bolus. We rechecked a fingerstick blood sugar here and it is down to 62. I had the nurses continue the D10 bolus to get her sugar up. Pages initial GCS is 14. She is groggy and mildly confused and somnolent but no focal deficits. No see clear signs of head trauma but since she is on warfarin we will get a head CT. She also has bruising on the dorsum of her right hand with a small skin tear there. Will obtain hand x-ray although clinically this appears to be a soft tissue injury. History additionally obtained from her daughter suggest this is probably an inadvertent insulin overdose or inadequate oral intake. She has been having low blood sugars lately. We believe she did take her breakfast time insulin and ate breakfast. She took her lunchtime insulin but did not eat lunch and then was found on the floor room before she could ?go down? for lunch today. Suspect this is probably and inadvertent insulin overdose/inadequate oral intake associated with her insulin. Daughter has been meaning to talk to her new primary care provider about her insulin regimen and her recent lows, but she just got to the [facility] 2 days ago so there has not been time yet. Recheck-12 15. A little bit more alert but still groggy and nauseous. Sugar up to 113. Initial D10 boluses almost completed. Will start on some D5. Additional nausea medication- Reglan Update-[id number]. Nurses note that she becomes bradycardic on the 30s when she is asleep but then heart rate comes up to the 50s when she is awake. Still awaiting labs and potassium. She is not symptomatic with the bradycardia. Mental status remains little bit drowsy but overall improved compared to arrival. Suspect that she may have some persistent cm depression after a hypoglycemic spell or possibly may be postictal. We are working on getting her to CT scan which I have already ordered. Nurses will put pacer pads on and bring atropine to the bedside just in case but at this point she does not need any treatment for bradycardia. One thousand four hundred. Sugar back down to 62 despite receiving a D5 infusion. Will give her another bolus of dextrose-1 amp of D50. Recheck-3:00 p.m.. More alert now. GCS 15. Breathing easily on room air. Still feels nauseous and does not think she can eat or drink anything. She tried a couple of times take a few sips of juice but just does not want to drink it. She is not having any abdominal pain. Repeat exam reveals no tenderness. No urinary symptoms. No fever. No headache. No trouble breathing. No chest pain. Blood sugars 166. She still feels ?tired? and is a little bit drowsy or than her baseline but is much better than arrival. Will try additional antibiotic-Zofran 4 mg. If she is not able to eat, she will require admission for hydration and glucose monitoring. White blood cell count elevated at 13. This actually appears to be typical for her based on her old labs. She is not having any fever. No other infection symptoms. She does have frequent UTIs but is not have any symptoms of that lately. Recheck-16 30. Doing more alert. Able to take some sips of water. Recheck -1800. Alert and feeling better. Blood sugars been normal. She has eaten and blood sugars remaining up. She is back to her normal baseline. She and her daughter are comfortable with her going back to the [facility]. At this point it appears that she had a dangerous hypoglycemic episode causing her altered mental status. She has been having some trouble with some low readings over the past couple of weeks ever since she has been on a regimen of 10 units short-acting insulin before each meal. She just moved to the [facility] and has not yet seen her new primary care provider. My short-term advice would be for her to discontinue all of her short-acting insulin over the next few days. She should continue her long-acting Lantus. She can monitor her blood sugar through her CGM and have her staff at and are see check her blood sugar 4 times daily to get some data for her new PCP. Once we had that information they can work together to determine a long-term plan for glycemic control. The immediate priority is to avoid any further dangerous episodes of hypoglycemia. Patient and her daughter are in strong agreement with this plan. Vital Signs Vital signs: Initial Vital Signs Pulse Rate 56 L 01/27/25 12:40 Pulse Oximetry 90 01/27/25 12:40 Vital Signs Pulse Rate 56 L 01/27/25 12:40 Pulse Oximetry 90 01/27/25 12:40 Temperature 96.0 F L 01/27/25 12:43 Pulse Rate 59 L 01/27/25 19:15 Respiratory Rate 8 L 01/27/25 19:15 Blood Pressure 122/54 L 01/27/25 19:02 Pulse Oximetry 90 01/27/25 19:15 Oxygen Delivery Method Room Air 01/27/25 18:42 Medications Administered Medications: Generic Name Dose Route Start Last Admin Trade Name Freq PRN Reason Stop Dose Admin Potassium Chloride/Dextrose/Sod Cl 1,000 mls @ 125 mls/hr 01/27/25 13:23 01/27/25 13:29 5 % Dex/0.45 Sod Chl+Kcl20 Meq IV 125 mls/hr .Q8H CARISSA Administration Discontinued Medications Generic Name Dose Route Start Last Admin Trade Name Freq PRN Reason Stop Dose Admin Dextrose 25 gm 01/27/25 13:59 01/27/25 14:04 Dextrose 50 % Syringe IVP 01/27/25 14:00 25 gm ONCE ONE Administration Dextrose 250 mls @ 1,000 mls/hr 01/27/25 12:54 01/27/25 13:20 10 % Dextrose 500 Ml IV 01/27/25 13:08 1,000 mls/hr .Q15M ONE Administration Metoclopramide HCl 10 mg 01/27/25 13:22 01/27/25 14:47 Metoclopramide Hcl 5 Mg/Ml Inj IVP 01/27/25 13:23 10 mg ONCE ONE Administration Ondansetron HCl 4 mg 01/27/25 12:54 01/27/25 13:20 Ondansetron 2 Mg/Ml Inj IVP 01/27/25 12:55 4 mg ONCE ONE Administration Ondansetron HCl 4 mg 01/27/25 15:21 01/27/25 15:29 Ondansetron 2 Mg/Ml Inj IVP 01/27/25 15:22 4 mg ONCE ONE Administration Medical Decision Making Lab Data Labs: Lab Results 01/27/25 01/27/25 Range/Units 12:41 13:15 WBC 13.54 H (4.50-11.00) K/uL RBC 4.16 (4.00-5.20) m/uL Hgb 11.4 L (12.0-16.0) gm/dL Hct 35.6 (33.0-51.0) % MCV 86 (80-100) fL MCH 27 (26-34) pg MCHC 32 (32-36) gm/dL RDW Coeff of Aditi 16.0 H (11.5-15.5) % Plt Count 347 (140-440) K/uL Neut % (Auto) 75.6 H (42.0-72.0) % Lymph % (Auto) 11.2 L (20-44) % Bucks % (Auto) 8.3 (0.0-11.0) % Eos % (Auto) 4.0 (0.0-7.0) % Baso % (Auto) 0.6 (0.0-3.0) % Neut # (Auto) 10.20 H (1.7-7.0) K/uL Lymph # (Auto) 1.50 (0.90-2.90) K/uL Bucks # (Auto) 1.10 H (0.00-0.90) K/UL Eos # (Auto) 0.50 (0.00-0.50) K/uL Baso # (Auto) 0.10 (0.00-0.30) K/uL Abs Immat Gran (auto) 0.00 (0.00-0.30) K/uL Imm/Tot Granulo (auto) 0.3 % INR 1.22 H (0.91-1.10) Sodium 137 (135-149) mmol/L Potassium 3.5 L (3.6-5.1) mmol/L Chloride 97 (96-114) mmol/L Carbon Dioxide 29 (20-32) mmol/L Anion Gap 11 (7-15) mEq/L BUN 18 (7-30) mg/dL Creatinine 0.9 (0.5-1.5) mg/dL Estimated Creat Clear 46.50 Estimated GFR 70 ml/min Glucose 87 (60-115) mg/dL Lactate 1.1 (0.5-1.9) mmol/L Calcium 9.3 (8.4-10.6) mg/dL POC Glucose 62 (60-115) mg/dl Imaging Data CT scan - head: Attestation: I have reviewed the pertinent imaging results. Radiologist's impression: IMPRESSION: 1. No acute intracranial hemorrhage. 2. Similar disproportionate enlargement of the supratentorial ventricles compared to the size of the sulci raising the possibility of normal pressure hydrocephalus in the appropriate clinical context. 3. 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 4. Moderate hypoattenuating changes in the white matter which are nonspecific, but commonly attributable to chronic microangiopathic change. CT C spine: Attestation: I have reviewed the pertinent imaging results. Radiologist's impression: IMPRESSION: 1. No evident acute displaced fracture. 2. Mild to moderate degenerative change of the cervical spine. ECG Data Attestation: I personally reviewed and interpreted this ECG as follows: Interpretation: Sinus bradycardia Rate 47 NV interval 156. QRS left axis deviation. Left anterior fascicular block. Right bundle-branch block. Voltage criteria for left ventricular hypertrophy. She has a tall R-wave in lead aVL. Nonspecific T-wav flattening multiple leads. QTC 586, QTC 518 Discharge Plan Discharge Clinical Impression: Hypoglycemia Patient Disposition: Home, Self-Care Condition: Stable Instructions: Hypoglycemia in a Person with Diabetes (ED) Additional Instructions: We are very glad that your blood sugars up in that your feeling better. We suspect that your blood sugar went dangerously low today because you are on too much short-acting insulin (and took your insulin too long before lunch, so your sugar dropped low before you could eat). For now, please stop all of your short acting insulin shots. Continue on your long acting insulin each night at bedtime. Please use your continuous glucose monitor to keep a recording of your blood sugar measurements. If your CGM does not keep but digital copy of your blood sugar 4 your doctor to review, please have your nurses at the [facility] measure and record your sugar before breakfast, before lunch, before dinner, and at bedtime each day for the next week. If you have any more symptomatic episodes of low blood sugar, please try to drink juice or eat some sugar and also return to the emergency department immediately. Prescriptions: No Action amlodipine 10 mg tablet 10 mg PO DAILY furosemide 40 mg tablet 40 mg PO DAILY coenzyme Q10 100 mg capsule 200 mg PO DAILY lidocaine HCl [Aspercreme (lidocaine HCl)] 4 % cream 1 applic topical DAILY PRN sennosides-docusate sodium [Colace 2-In-1] 8.6-50 mg tablet 1 tab-cap PO BID polyethylene glycol 3350 [Miralax] 17 gram/dose powder 17 g PO DAILY PRN acetaminophen [Acetaminophen Pain Relief] 500 mg tablet 1,000 mg PO Q6H PRN atorvastatin 40 mg tablet 40 mg PO DAILY carvedilol 12.5 mg tablet 12.5 mg PO BID fluoxetine 10 mg capsule 10 mg PO DAILY insulin glargine [Lantus Solostar U-100 Insulin] 100 unit/mL (3 mL) insulin pen 30 unit subcut HS lisinopril 40 mg tablet 40 mg PO DAILY insulin aspart U-100 [Novolog FlexPen U-100 Insulin] 100 unit/mL (3 mL) Insulin Pen 10 unit subcut TIDWM Qty: 12 0RF Eliquis 5 mg tablet 5 mg PO BID Qty: 60 2RF cephalexin 500 mg capsule 500 mg PO TID Qty: 30 0RF Follow Up/Referrals: Hilda Cheema MD [Staff Physician, Family Practice] Stand Alone Forms: Work/School Release, [facility] Info Instructions
[2025-01-27] MEDS: 10 % DEXTROSE 500 ML 250 ML 1000 ML IV (13:20)
[2025-01-27] MEDS: ONDANSETRON 2 MG/ML inj 4 MG IVP ×2 (13:20→15:29)
[2025-01-27 13:24] LABS: Lactate* 1.1 mmol/L (0.5-1.9)
[2025-01-27] MEDS: 5 % DEX/0.45 SOD CHL+KCL20 mEq 1,000 ML 125 ML IV (13:29)
[2025-01-27 13:42] LABS: Chloride* 97 mmol/L (96-114); Hematocrit* 35.6 % (33.0-51.0); Hemoglobin* 11.4 gm/dL (12.0-16.0); Immature Granulocytes Pct Auto 0.3 %; Mean Corpuscular HGB Conc 32 gm/dL (32-36); Mean Corpuscular Hemoglobin 27 pg (26-34); Mean Corpuscular Volume 86 fL (80-100); RDW Coefficient of Variation % 16.0 % (11.5-15.5); Red Blood Count* 4.16 m/uL (4.00-5.20); White Blood Count* 13.54 K/uL (4.50-11.00)
[2025-01-27 13:43] LABS: Potassium* 3.5 mmol/L (3.6-5.1); Sodium* 137 mmol/L (135-149)
[2025-01-27 13:45] LABS: INR 1.22 (0.91-1.10); Prothrombin Time 16.3 Seconds
[2025-01-27 13:46] LABS: Anion Gap 11 mEq/L (7-15); Blood Urea Nitrogen* 18 mg/dL (7-30); Calcium* 9.3 mg/dL (8.4-10.6); Carbon Dioxide* 29 mmol/L (20-32); Creatinine* 0.9 mg/dL (0.5-1.5); Est. Creatinine Clearance* 46.50; Estimated Glomerular Filt Rate 70 ml/min; Glucose* 87 mg/dL (60-115)
[2025-01-27] MEDS: DEXTROSE 50 % SYRINGE IVP (14:04)
[2025-01-27 14:06] LABS: Immature Granulocytes Abs Auto 0.00 K/uL (0.00-0.30); Lymphocytes Absolute Auto 1.50 K/uL (0.90-2.90); Slide Review Reflex No
[2025-01-27] MEDS: METOCLOPRAMIDE HCL 5 MG/ML INJ 10 MG IVP (14:47)
--- NOTE | 2025-01-27 18:46 | ED.NURSE ---
Pt had eaten pudding earlier; now alert independently ate a sandwich and used BS commode with standby assist.
== END 2025-01-27 19:53 | disposition home or self-care (01) ==
PROVIDERS: Emergency Provider Emergency Medicine; PCP Family Medicine
DX: E11.649 Type 2 diabetes mellitus with hypoglycemia without coma (principal); S60.221A Contusion of right hand, initial encounter; R11.0 Nausea; R32 Unspecified urinary incontinence; Z79.4 Long term (current) use of insulin; Z86.74 Personal history of sudden cardiac arrest; W19.XXXA Unspecified fall, initial encounter
CPT/HCPCS: 36415; 70450; 72125; 80048; 82947; 82962; 83605; 85025; 85610; 93005; 96374; 96375; 96376; 99284; 99285; J2405; J2765; J3480